=== PATIENT | male | born 1945 | race Caucasian/White ===

== ENCOUNTER 2023-01-27 08:23 | Outpatient (OUT) | payer MEDICARE, OTHER, SELFPAY ==
--- NOTE | 2023-01-27 08:45 | P.CN_ITS ---
Consult Note: HPI Data of Consult Patient: known to practice within the last 3 years Requesting Physician: Fariha Meehan NP Primary Care Provider: Non-Staff Physician, Consult Narrative Reason for consult: f/u Narrative: Raudel Jimenez a pleasant 77 year old male presents for evaluation and management of chronic left shoulder pain. Patient had a left shoulder injection july of 2021 that provided 80-100% pain relief until a few weeks ago. Today rating pain 7/10 dull in left shoulder. Would like to discuss repeating injection as tylenol b iofreeze voltaren and aspirin are not helping his pain. cc:: CC: Fariha Meehan NP Review of Systems 2 ROS Status of ROS 10 or more systems reviewed and unremarkable except as noted in history and below Musculoskeletal Reports: joint pain Exam Constitutional Documenting provider has reviewed patient's vital signs: yes Common normals: no apparent distress, oriented x3, healthy appearing, alert and well nourished General appearance: cooperative HENMT Common normals: normocephalic, hearing grossly normal bilaterally and moist oral mucous membranes Head and scalp: normocephalic Eye Common normals: PERRL Pupil: PERRL Neck & C-Spine Common normals: full ROM General: normal visual inspection Chest Common normals: inspection of chest normal Respiratory Common normals: normal respiratory effort, no retractions and no use of accessory muscles Extremity Common normals: normal to inspection and full ROM Left upper extremity: shoulder joint (pain with ROM, tender to touch, no edema redness) Neuro Common normals: oriented x3, CN's II-XII intact bilaterally, moves all extremities, no focal motor deficits, no sensory deficits noted and deep tendon reflexes 2+ bilaterally Sensorium/orientation: alert Motor exam: strength 5/5 throughout and no movement abnormalities noted Psych Common normals: mental status grossly normal, thought process normal, co operative, affect normal, speech normal and activity/motor behavior normal Speech: normal speech Thought process: normal thought process Results Additional Findings Additional findings: I have checked an OARRS report on this patient today and there are no aberranc ies noted in the prescribing history.?? A drug screen was completed and reviewed within the last year, and if there has not been a drug screen completed we ordered one today to monitor higher risk, st ate monitored pain medication use. As part of providing excellent, safe, comprehensive care, the following was completed at our patient's visit: 1. A medication reconciliation and review to ensure accurate knowledge of current/active medications, including asking our patients to inform us about any [id number] medications or herbal remedies/nutritional supplements/alternative remedies. 2. A review to specifically ensure our patients have had annual screening for: elevated body mass index (BMI), tobacco use, screening for depression, and screening for unhealthy alcohol use. When screening is concerning, patients are provided with education and the specific recommendation to discuss the concerning health issue and treatment options with their primary care provider. Assessment and Plan Assessment and Plan (1) Primary osteoarthritis, left shoulder: (2) Left shoulder pain: Plan continue conservative care f/u with Dr Fuentes for left shoulder injection
== END 2023-01-27 08:24 | disposition home or self-care (01) ==
LOC: PM 08:23
PROVIDERS: Visit Provider Nurse Practitioner
DX: M19.012 Primary osteoarthritis, left shoulder (principal); M25.512 Pain in left shoulder
CPT/HCPCS: G0463

== ENCOUNTER 2023-02-01 10:07 | Outpatient (OUT) | payer MEDICARE, OTHER, SELFPAY ==
--- NOTE | 2023-02-01 11:29 | PM.CN ---
Consult Note: HPI Data of Consult Patient: known to practice within the last 3 years Consult date: 02/01/23 Requesting Physician: Ponce Fuentes MD Primary Care Provider: Non-Staff Physician, Consult Narrative Reason for consult: left shoulder pain Narrative: 77yom with history of left shoulder pain. here today for left shoulder injection in office cc:: CC: Ponce Fuentes MD Review of Systems ROS Status of ROS 10 or more systems reviewed and unremarkable except as noted in history and below Meds Home Medications and Allergies Home Medications Medication Instructions Recorded Confirmed Type acetaminophen 650 mg 650 mg PO Q12H PRN fever or pain 01/27/23 01/27/23 History tablet,extended release (8 Hour Pain Reliever) apple cider vinegar 600 mg capsule 600 mg PO TID 01/27/23 01/27/23 History ascorbic acid (vitamin C) 500 mg 500 mg PO DAILY 01/27/23 01/27/23 History tablet (C-500) aspirin 81 mg tablet,delayed 81 mg PO DAILY 01/27/23 01/27/23 History release (Adult Aspirin Regimen) atenolol 50 mg tablet 50 mg PO DAILY 01/27/23 01/27/23 History atorvastatin 40 mg tablet 40 mg PO DAILY 01/27/23 01/27/23 History calcium carbonate 500 mg-vitamin 1 tab PO TID 01/27/23 01/27/23 History D3 10 mcg (400 unit) tablet (Calcium 500 + D) cholecalciferol (vitamin D3) 50 50 mcg PO DAILY 01/27/23 01/27/23 History mcg (2,000 unit) tablet (Vitamin D3) famotidine 20 mg tablet 20 mg PO BID 01/27/23 01/27/23 History fluticasone propionate 50 1 spray intranasal BID PRN allergy 01/27/23 01/27/23 History mcg/actuation nasal symptoms spray,suspension (24 Hour Allergy Relief) hydrochlorothiazide 25 mg tablet 25 mg PO DAILY 01/27/23 01/27/23 History insulin degludec 100 unit/mL (3 64 unit subcut DAILY 01/27/23 01/27/23 History mL) subcutaneous pen (Tresiba FlexTouch U-100 insulin) lisinopril 20 mg tablet 20 mg PO BID 01/27/23 01/27/23 History loratadine 10 mg capsule 10 mg PO DAILY 01/27/23 01/27/23 History melatonin 10 mg capsule 10 mg PO DAILY 01/27/23 01/27/23 History multivitamin (Daily Multi-Vitamin 1 tab PO DAILY 01/27/23 01/27/23 History tablet) omeprazole 20 mg capsule,delayed 20 mg PO DAILY 01/27/23 01/27/23 History release pyridoxine (vitamin B6) 100 mg 100 mg PO DAILY 01/27/23 01/27/23 History tablet sitagliptin phos 50 mg-metformin 1 tab PO BID 01/27/23 01/27/23 History ER 1,000 mg tablet,extend rel 24h mp (Janumet XR) zinc 25 mg tablet 25 mg PO DAILY 01/27/23 01/27/23 History Allergies Allergy/AdvReac Type Severity Reaction Status Date / Time No Known Drug Allergies Allergy Verified 01/27/23 10:47 Exam Narrative Exam Narrative: Psych-alert and oriented x 3. Attentive and appropriate, constitutionally normal, displays normal mood and affect per situation. There are no obvious deficits in memory, reasoning, or intellect.? Skin-no obvious rashes, bruising, erythema noted to the patient's area of pain.? Extremities- extremities are warm with minimal edema and palpable pulses. Shoulder - tenderness to palpation in left shoulder. Pain elicited with abduction, external rotation. Coordination remains intact.? Gait remains non-antalgic. Assessment and Plan Assessment and Plan (1) Left shoulder pain: (2) Primary osteoarthritis, left shoulder: Plan 77yom with left shoulder pain. Risks and benefits reviewed, would like to proceed with left shoulder injection. Procedure: Left shoulder injection Medication: Bupivacaine 0.25% 4cc, kenalog 40mg I explained the details of the procedure to the patient including the risks, benefits, and alternatives.? We had an informed discussion.? The patient verbalized understanding and signed the consent form.? All questions were answered appropriately.? A time-out was performed.? After obtaining a comfortable seated position, the skin overlying the left shoulder was prepped with alcohol 3 times.? The sulcus between the head of the humerus and the acromion was identified.? The needle was inserted in a sterile manner 2 cm inferior and medial to the posterolateral corner of the acromion and was directed anteriorly toward the coracoid process. The contents of the syringe were gently injected without any resistance into the joint space after negative aspiration for blood or other bodily fluids.? The needle was removed and pressure was applied at the injection site to decrease the incidence of ecchymosis and hematoma formation.? A sterile bandage was applied.
== END 2023-02-01 10:08 | disposition home or self-care (01) ==
LOC: PM 10:08
PROVIDERS: Visit Provider Anesthesiology
DX: M25.512 Pain in left shoulder (principal); M19.012 Primary osteoarthritis, left shoulder
CPT/HCPCS: 20610

== ENCOUNTER 2023-02-24 09:34 | Outpatient (OUT) | payer MEDICARE, OTHER, SELFPAY ==
--- NOTE | 2023-02-24 09:52 | P.CN_ITS ---
Consult Note: HPI Data of Consult Patient: known to practice within the last 3 years Requesting Physician: Fariha Meehan NP Primary Care Provider: Non-Staff Physician, Consult Narrative Reason for consult: f/u Narrative: Tony Starks a pleasant 77 year old male presents for evaluation and management of chronic left shoulder pain. Patient reports no relief from prior injection. Continues to have pain with activity in left shoulder joint . Rating pain today 4/10. Finds mild benefit to voltaren gel, moderate benefit from tramadol but wou ld like to avoid medications. cc:: CC: Fariha Meehan NP Review of Systems ROS Status of ROS 10 or more systems reviewed and unremarkable except as noted in history and below Musculoskeletal Reports: joint pain Meds Home Medications and Allergies Home Medications Medication Instructions Recorded Confirmed Type acetaminophen 650 mg 650 mg PO Q12H PRN fever or pain 01/27/23 01/27/23 History tablet,extended release (8 Hour Pain Reliever) apple cider vinegar 600 mg capsule 600 mg PO TID 01/27/23 01/27/23 History ascorbic acid (vitamin C) 500 mg 500 mg PO DAILY 01/27/23 01/27/23 History tablet (C-500) aspirin 81 mg tablet,delayed 81 mg PO DAILY 01/27/23 01/27/23 History release (Adult Aspirin Regimen) atenolol 50 mg tablet 50 mg PO DAILY 01/27/23 01/27/23 History atorvastatin 40 mg tablet 40 mg PO DAILY 01/27/23 01/27/23 History calcium carbonate 500 mg-vitamin 1 tab PO TID 01/27/23 01/27/23 History D3 10 mcg (400 unit) tablet (Calcium 500 + D) cholecalciferol (vitamin D3) 50 50 mcg PO DAILY 01/27/23 01/27/23 History mcg (2,000 unit) tablet (Vitamin D3) famotidine 20 mg tablet 20 mg PO BID 01/27/23 01/27/23 History fluticasone propionate 50 1 spray intranasal BID PRN allergy 01/27/23 01/27/23 History mcg/actuation nasal symptoms spray,suspension (24 Hour Allergy Relief) hydrochlorothiazide 25 mg tablet 25 mg PO DAILY 01/27/23 01/27/23 History insulin degludec 100 unit/mL (3 64 unit subcut DAILY 01/27/23 01/27/23 History mL) subcutaneous pen (Tresiba FlexTouch U-100 insulin) lisinopril 20 mg tablet 20 mg PO BID 01/27/23 01/27/23 History loratadine 10 mg capsule 10 mg PO DAILY 01/27/23 01/27/23 History melatonin 10 mg capsule 10 mg PO DAILY 01/27/23 01/27/23 History multivitamin (Daily Multi-Vitamin 1 tab PO DAILY 01/27/23 01/27/23 History tablet) omeprazole 20 mg capsule,delayed 20 mg PO DAILY 01/27/23 01/27/23 History release pyridoxine (vitamin B6) 100 mg 100 mg PO DAILY 01/27/23 01/27/23 History tablet sitagliptin phos 50 mg-metformin 1 tab PO BID 01/27/23 01/27/23 History ER 1,000 mg tablet,extend rel 24h mp (Janumet XR) zinc 25 mg tablet 25 mg PO DAILY 01/27/23 01/27/23 History tramadol 50 mg tablet 50 mg PO BID PRN pain #60 tabs 02/08/23 Rx Allergies Allergy/AdvReac Type Severity Reaction Status Date / Time No Known Drug Allergies Allergy Verified 01/27/23 10:47 Exam Constitutional Documenting provider has reviewed patient's vital signs: yes Common normals: no apparent distress, oriented x3, healthy appearing, alert and well nourished General appearance: cooperative HENMT Common normals: normocephalic, hearing grossly normal bilaterally and moist oral mucous membranes Head and scalp: normocephalic Eye Common normals: PERRL Pupil: PERRL Neck & C-Spine Common normals: full ROM General: normal visual inspection Other: no pain with rotation, flexion, extension. No pain with palpation. Denies numbness/tingling/weakness in bilateral arms or hands. No tenderness over left suprascapular or axillary nerve pattern. Chest Common normals: inspection of chest normal Respiratory Common normals: normal respiratory effort, no retractions and no use of accessory muscles Extremity Left upper extremity: shoulder joint (no edema. ROM mildly impaired. ) Other: pain over anterior shoulder joint with palpation, positive scratch test Neuro Common normals: oriented x3, CN's II-XII intact bilaterally, moves all extremities, no focal motor deficits, no sensory deficits noted and deep tendon reflexes 2+ bilaterally Sensorium/orientation: alert Motor exam: strength 5/5 throughout and no movement abnormalities noted Psych Common normals: mental status grossly normal, thought process normal, cooperative, affect normal, speech normal and activity/motor behavior normal Speech: normal speech Thought process: normal thought process Results Additional Findings Additional findings: I have checked an OARRS report on this patient today and there are no aberrancies noted in the prescribing history.?? A drug screen was completed and reviewed within the last year, and if there has not been a drug screen completed we ordered one today to monitor higher risk, state monitored pain medication use. As part of providing excellent, safe, comprehensive care, the following was completed at our patient's visit: 1. A medication reconciliation and review to ensure accurate knowledge of current/active medications, including asking our patients to inform us about any [id number] medications or herbal remedies/nutritional supplements/alternative remedies. 2. A review to specifically ensure our patients have had annual screening for: elevated body mass index (BMI), tobacco use, screening for depression, and screening for unhealthy alcohol use. When screening is concerning, patients are provided with education and the specific recommendation to discuss the concerning health issue and treatment options with their primary care provider. Assessment and Plan Assessment and Plan (1) Left shoulder pain: (2) Primary osteoarthritis, left shoulder: (3) Cervical spondylosis: (4) Tendinopathy of left shoulder: Plan update xray of left shoulder xray of cervical spine continue current medications pt would like to f/u with his previous orthopedic doctor who did his right shoulder f/u 4 weeks
== END 2023-02-24 09:35 | disposition home or self-care (01) ==
LOC: PM 09:34
PROVIDERS: Visit Provider Nurse Practitioner
DX: M25.512 Pain in left shoulder (principal); M19.012 Primary osteoarthritis, left shoulder; M47.812 Spondylosis without myelopathy or radiculopathy, cervical region; M67.814 Other specified disorders of tendon, left shoulder
CPT/HCPCS: G0463

== ENCOUNTER 2023-03-31 11:08 | Outpatient (OUT) | payer MEDICARE, OTHER, SELFPAY ==
--- NOTE | 2023-03-31 11:33 | PM.CN ---
Consult Note: HPI Data of Consult Patient: known to practice within the last 3 years Requesting Physician: Fariha Meehan NP Primary Care Provider: Non-Staff Physician, Consult Narrative Reason for consult: f/u Narrative: Tony Starks a pleasant 77 year old male presents for evaluation and management of chronic left shoulder pain. Patient reports no relief from prior injection. Continues to have pain with activity in left shoulder joint . Rating pain today 4/10. Finds mild benefit to voltaren gel, moderate benefit from tramadol but would like to avoid medications. cc:: CC: Fariha Meehan NP Review of Systems ROS Status of ROS 10 or more systems reviewed and unremarkable except as noted in history and below Musculoskeletal Reports: joint pain Meds Home Medications and Allergies Home Medications Medication Instructions Recorded Confirmed Type acetaminophen 650 mg 650 mg PO Q12H PRN fever or pain 01/27/23 01/27/23 History tablet,extended release (8 Hour Pain Reliever) apple cider vinegar 600 mg capsule 600 mg PO TID 01/27/23 01/27/23 History ascorbic acid (vitamin C) 500 mg 500 mg PO DAILY 01/27/23 01/27/23 History tablet (C-500) aspirin 81 mg tablet,delayed 81 mg PO DAILY 01/27/23 01/27/23 History release (Adult Aspirin Regimen) atenolol 50 mg tablet 50 mg PO DAILY 01/27/23 01/27/23 History atorvastatin 40 mg tablet 40 mg PO DAILY 01/27/23 01/27/23 History calcium carbonate 500 mg-vitamin 1 tab PO TID 01/27/23 01/27/23 History D3 10 mcg (400 unit) tablet (Calcium 500 + D) cholecalciferol (vitamin D3) 50 50 mcg PO DAILY 01/27/23 01/27/23 History mcg (2,000 unit) tablet (Vitamin D3) famotidine 20 mg tablet 20 mg PO BID 01/27/23 01/27/23 History fluticasone propionate 50 1 spray intranasal BID PRN allergy 01/27/23 01/27/23 History mcg/actuation nasal symptoms spray,suspension (24 Hour Allergy Relief) hydrochlorothiazide 25 mg tablet 25 mg PO DAILY 01/27/23 01/27/23 History insulin degludec 100 unit/mL (3 64 unit subcut DAILY 01/27/23 01/27/23 History mL) subcutaneous pen (Tresiba FlexTouch U-100 insulin) lisinopril 20 mg tablet 20 mg PO BID 01/27/23 01/27/23 History loratadine 10 mg capsule 10 mg PO DAILY 01/27/23 01/27/23 History melatonin 10 mg capsule 10 mg PO DAILY 01/27/23 01/27/23 History multivitamin (Daily Multi-Vitamin 1 tab PO DAILY 01/27/23 01/27/23 History tablet) omeprazole 20 mg capsule,delayed 20 mg PO DAILY 01/27/23 01/27/23 History release pyridoxine (vitamin B6) 100 mg 100 mg PO DAILY 01/27/23 01/27/23 History tablet sitagliptin phos 50 mg-metformin 1 tab PO BID 01/27/23 01/27/23 History ER 1,000 mg tablet,extend rel 24h mp (Janumet XR) zinc 25 mg tablet 25 mg PO DAILY 01/27/23 01/27/23 History tramadol 50 mg tablet 50 mg PO BID PRN pain #60 tabs 02/08/23 Rx tramadol 50 mg tablet 50 mg PO BID PRN pain #60 tabs 03/09/23 Rx Allergies Allergy/AdvReac Type Severity Reaction Status Date / Time No Known Drug Allergies Allergy Verified 01/27/23 10:47 Exam Constitutional Documenting provider has reviewed patient's vital signs: yes Common normals: no apparent distress, oriented x3, healthy appearing, alert and well nourished General appearance: cooperative [facility] Common normals: normocephalic, hearing grossly normal bilaterally and moist oral mucous membranes Head and scalp: normocephalic Eye Common normals: PERRL Pupil: PERRL Neck & C-Spine Common normals: full ROM General: normal visual inspection Other: no pain with rotation, flexion, extension. No pain with palpation. Denies numbness/tingling/weakness in bilateral arms or hands. No tenderness over left suprascapular or axillary nerve pattern. Chest Common normals: inspection of chest normal Respiratory Common normals: normal respiratory effort, no retractions and no use of accessory muscles Extremity Left upper extremity: shoulder joint (no edema. ROM mildly impaired. ) Other: pain over anterior shoulder joint with palpation ROM normal without pain Neuro Common normals: oriented x3, CN's II-XII intact bilaterally, moves all extremities, no focal motor deficits, no sensory deficits noted and deep tendon reflexes 2+ bilaterally Sensorium/orientation: alert Motor exam: strength 5/5 throughout and no movement abnormalities noted Psych Common normals: mental status grossly normal, thought process normal, cooperative, affect normal, speech normal and activity/motor behavior normal Speech: normal speech Thought process: normal thought process Assessment and Plan Assessment and Plan (1) Tendinopathy of left shoulder: (2) Cervical spondylosis: (3) Left shoulder pain: (4) Primary osteoarthritis, left shoulder: Plan cervical xray reviewed, recent left shoulder xray reviewed. patient was evaluated by orthopedics who deemed him non-surgical per pt at the end of today's visit patient said he is not coming back, he is going to follow up with his orthopedic doctor patient can discuss medication options with PCP
== END 2023-03-31 11:09 | disposition home or self-care (01) ==
LOC: PM 11:08
PROVIDERS: Visit Provider Nurse Practitioner
DX: M75.82 Other shoulder lesions, left shoulder (principal); M47.812 Spondylosis without myelopathy or radiculopathy, cervical region; M25.512 Pain in left shoulder; M19.012 Primary osteoarthritis, left shoulder
CPT/HCPCS: G0463

== ENCOUNTER 2023-05-25 14:25 | Outpatient (OUT) | payer MEDICARE, OTHER, SELFPAY ==
--- NOTE | 2023-05-25 | CONS_ITS ---
CONSULTATION DATE: 05/25/2023 TO: JESSIKA Solano CHIEF COMPLAINT: Includes right hip pain. HISTORY: He reports the pain presently is rated 0-4/10 pain, sharp in character with a deep aching component, increased with activities such as standing, walking and performing transitioning maneuvers. He also reports laying supine is quite painful. Denies any change in bowel and bladder habits or new sensorimotor changes in the lower extremities. MEDICATION: His current medication includes tramadol 50 mg b.i.d. p.r.n., which he uses rarely. He reports the medication does improve his quality of life, level of functioning and sleep pattern, when he does use it, and denied any side effects. His MASSIEL on today?s visit is 4%. EXAM: His examination on today?s visit reveals the patient has no clinical radiculopathy or myelopathy involving his lower extremities. Patient had tenderness along the right SI joint. He had a positive right sided pelvic rock test and Gaenslen?s maneuver and pelvic compression test was positive but mild. He also had positive right sided FABERs sign. IMPRESSION: Our impression is patient appears to have chronic pain secondary to right hip osteoarthrosis, right SI joint dysfunction, both of which are mild on today?s visit, at least on clinical examination. RECOMMENDATIONS: I recommend no further intervention for his pain symptoms. He should initiate aquatic therapy. Since the patient is still prescribed tramadol but uses it infrequently, we will see the patient in the office on an as needed basis, since his later prescription was written four weeks ago. He reports he has not required any tramadol in the last four weeks. As part of providing excellent, safe, comprehensive care, the following was completed at our patient's visit: 1. A medication reconciliation and review to ensure accurate knowledge of current/active medications, including asking our patients to inform us about any [id number] medications or herbal remedies/nutritional supplements/alternative remedies. 2. A review to specifically ensure our patients have had annual screening for: elevated body mass index (BMI, see intake chart for exact total), tobacco use, screening for depression, and screening for unhealthy alcohol use. When screening is concerning, patients are provided with education and the specific recommendation to discuss the concerning health issue and treatment options with their primary care provider. LOC
== END 2023-05-25 14:26 | disposition home or self-care (01) ==
LOC: PM 14:25
PROVIDERS: Visit Provider Anesthesiology Pain Medicine
DX: M25.551 Pain in right hip (principal); M16.11 Unilateral primary osteoarthritis, right hip; M53.3 Sacrococcygeal disorders, not elsewhere classified
CPT/HCPCS: G0463

== ENCOUNTER 2023-09-07 12:10 | Outpatient (OUT) | payer MEDICARE, OTHER, SELFPAY ==
--- NOTE | 2023-09-07 | CONS_ITS ---
PROCEDURE DATE: 09/07/2023 PROCEDURE: Left suprascapular nerve injection. 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 POSTOPERATIVE DIAGNOSIS: Pain secondary to rotator cuff strain, rotator cuff tear on the left side, osteoarthrosis of the glenohumeral and also the AC joint. SOLUTION USED FOR INJECTION: 2 mL of 2% lidocaine, 2 mL of 0.25% Marcaine and 10 mg of Kenalog, total of 5 mL, and 1 mL used for the injection. IMMEDIATE COMPLICATIONS: None. PROCEDURE: After informed consent was obtained from the patient, placed in the sitting position. Skin overlying the area was prepped with alcohol. A 25 gauge, 1 ?? needle was inserted over the area of the left suprascapular nerve. Needle tip advanced until there he developed paresthesia, at which point we injected 1 mL of solution. No indication of intravascular or intraneural needle tip placement. No evidence of post procedure pneumothorax and patient reports a dramatic reduction of pain symptoms. Patient?s MASSIEL pre-procedure was 8%. MTDD
--- OUTSIDE RECORDS SUMMARY | 2023-09-07 12:23 | XMS_ITS | CCD ---
Author Organization [facility] Care Team Providers Care Mine Expert Name Role Phone Daniel Pop Primary Care Provider KESHAWN, DR OTF Villatoro Consulting Unavailable JOO, DR ABNER Saini Attending Unavailable ARBEN, DR NUNEZ Primary Care Unavailable JOO, DR ABNER Saini Admitting Unavailable JESSE WOOD Consulting Unavailable MISC, DR VEGA Primary Care Unavailable JOO, DR ABNER Saini Attending Unavailable JESSE WOOD Consulting Unavailable JOO, DR ABNER Saini Admitting Unavailable JANESSAC, DR VEGA Primary Care Unavailable JOO, DR ABNER Saini Attending Unavailable JOO, DR ABNER Saini Consulting Unavailable WASHINGTON, DR ABNER Saini Admitting Unavailable DINORA LAROSE Consulting Unavailable W[place], DR ABNER Saini Attending Unavailable JESSE WOOD Consulting Unavailable MISC, DR VEGA Primary Care Unavailable JOO, DR ABNER Saini Admitting Unavailable JOO, DR ABNER Saini Attending Unavailable JOO, DR ABNER Saini Consulting Unavailable MISC, DR VEGA Primary Care Unavailable JOO, DR ABNER Saini Admitting Unavailable Ponce Fuentes MD Attending Unavailable DANIEL POP Primary Care Unavailable PREETHI SHAVER Referring Unavailable DANIEL POP Primary Care Unavailable SHAYLEE PLATA Referring Unavailable DANIEL POP Primary Care Unavailable PREETHI SHAVER Referring Unavailable DANIEL POP Primary Care Unavailable PREETHI SHAVER Referring Unavailable PRETTY DAWSON Attending Unavailable PALMA SALGADO Attending Unavailable POCPRETTY WORKMAN Attending Unavailable PRETTY DAWSON Referring Unavailable SHAYLEE PLATA Attending Unavailable PALMA SALGADO Attending Unavailable Medications Current Medications Medication Drug Class(es) Dates Sig (Normalized) Sig (Original) acetaminophen 325 mg / oxyCODONE hydrochloride 5 mg oral tablet (2 sources) Opioid Agonist Start: 05-09-19 21 End: 05-12-19 21 take 1-2 tablets by mouth every six hours as needed for pain oxyCODONE-acetaminophe n (PERCOCET) 5-325 MG per tablet Indications: Rotator cuff syndrome of right shoulder Take 1-2 tablets by mouth every 6 hours as needed for Pain for up to 3 days. 40 tablet 0 05/09/2020 05/12/2020 Active Apple Cider Vinegar (1 source) APPLE CIDER VINE GAR PO Take by mouth 0 Active aspirin 81 mg oral tablet (20 sources) Platelet Aggregation Inhibitor, Nonsteroidal Anti-inflammatory Drug take 1 tablet by mouth once daily aspirin 81 MG tablet Take 81 mg by mouth daily. 0 Active atenolol 50 mg oral tablet (20 sources) beta-Adrenergic Kostas take 1 tablet by mouth once daily atenolol (TENORMIN) 50 MG tablet Take 50 mg by mouth daily. 0 Active atorvastatin 40 mg oral tablet (20 sources) HMG-CoA Reductase Inhibitor take 1 tablet by mouth once daily atorvastatin (LIPITOR) 40 MG tablet Take 40 mg by mouth daily. 0 Active calcium chloride 0.0014 meq/ml / potassium chloride 0.004 meq/ml / sodium chloride 0.103 meq/ml / sodium lactate 0.028 meq/ml injectable solution (1 source) Start: 05-09-19 21 lactated ringers infusion CALCIUM-VITAMIN D PO (20 sources) CALCIUM-VITAMIN D PO Take by mouth 0 Active docusate sodium 100 mg oral capsule (18 sources) Start: 05-09-19 21 take 1 capsule by mouth twice daily docusate sodium (COLACE) 100 MG capsule Take 1 capsule by mouth 2 times daily 40 capsule 0 05/09/2020 Active famotidine 20 mg oral tablet (1 source) Histamine-2 Receptor Antagonist Start: 02-03-20 22 famotidine (PEPCID) 20 MG tablet fluticasone (1 source) Corticosteroid FLUTICASONE PROPIONATE, NASAL, NA by Nasal route 0 Active hydroCHLOROthiazide 25 mg oral tablet (20 sources) Thiazide Diuretic take 1 tablet by mouth once daily hydrochlorothiazide (HYDRODIURIL) 25 MG tablet Take 25 mg by mouth daily 0 Active insulin degludec (18 sources) Insulin Analog Insulin Degludec (TRESIBA SC) Inject 60 Units into the skin nightly 0 Active lisinopril 10 mg oral tablet (20 sources) Angiotensin Converting Enzyme Inhibitor take 2 tablets by mouth twice daily lisinopril (PRINIVIL;ZESTRIL) 10 MG tablet Take 20 mg by mouth 2 times daily 0 Active loratadine 10 mg oral tablet (1 source) LORATADINE PO Ta ke 10 mg by mouth 0 Active magnesium sulfate 0.0277 meq/ml / potassium sulfate 0.0374 meq/ml / sodium sulfate 0.257 meq/ml oral solution (1 source) Start: 04-20-19 23 [id number] sulfate (SUPREP BOWEL PREP KIT) 17.5-3.13-1.6 GM/177ML SOLN solution Use as directed. 1 each 0 04/20/2022 Active Melatonin (1 source) MELATONIN PO Eric e by mouth 0 Active 24 hr metFORMIN hydrochloride 1000 mg / SITagliptin 50 mg extended release oral tablet (1 source) Biguanide, Dipeptidyl Peptidase 4 Inhibitor Start: 03-31-20 JANUMET XR 50-1000 MG TB24 per extended release tablet multivitamin (THERAGRAN) per tablet (20 sources) take 1 tablet by mouth once daily multivitamin (THERAGRAN) per tablet Take 1 tablet by mouth daily. 0 Active Nutritional Supplements (DHEA PO) (20 sources) Nutritional Supplements (DHEA PO) Take by mouth 0 Active omeprazole 20 mg delayed release oral capsule (20 sources) Proton Pump Inhibitor take 1 capsule by mouth once daily omeprazole (PRILOSEC) 20 MG capsule Take 20 mg by mouth daily. 0 Active 2 ml ondansetron 2 mg/ml injection (1 source) Serotonin-3 Receptor Antagonist Start: 05-09-19 21 4 mg, Intravenous, EVERY 6 HOURS PRN, Nausea, Vomiting, Starting Reny 05/09/20 at 1438, Post-op oxyCODONE (1 source) Opioid Agonist Start: 05-09-19 21 oxyCODONE (ROXICODONE) immediate release tablet 5 mg raNITIdine 150 mg oral capsule (20 sources) Histamine-2 Receptor Antagonist take 2 capsules by mouth once daily as needed ranitidine (ZANTAC) 150 MG capsule Take 300 mg by mouth daily as needed 0 Active SITagliptin 100 mg oral tablet (20 sources) Dipeptidyl Peptidase 4 Inhibitor take 1 tablet by mouth once daily in the evening sitaGLIPtin (JANUVIA) 100 MG tablet Take 100 mg by mouth every evening. 0 Active 3 ml sodium chloride 9 mg/ml injection (4 sources) Start: 05-09-19 21 10 mL, Intravenous, EVERY 12 HOURS SCHEDULED (2 times per day), First dose on Reny 05/09/20 at 2100, Post-op Start: 05-09-2020 take 10 mL intravenous route o nce 10 mL, Intravenous, PRN, Line Care, Starting Reny 05/09/20 at 1438 After every IV line use Post-op Start: 05-09-2020 sodium chlorid e flush 0.9 % injection 10 mL vitamin b6 50 mg oral tablet (1 source) take 2 tablets by mo uth once daily vitamin B-6 (PYRIDOXINE) 50 MG tablet Take 100 mg by mouth daily 0 Active Zinc (1 source) ZINC PO Take by mouth 0 Active Completed/Discontinued Medications Medication Drug Class(es) Dates Sig (Normalized) Sig (Original) ceFAZolin 2000 mg injection (1 source) Cephalosporin Antibacterial Start: 05-09-2020 End: 05-09-2020 ceFAZolin (ANCEF) 2000 mg in dextrose 3 % 50 mL IVPB (duplex) insulin detemir 100 unt/ml injectable solution (18 sources) Insulin Analog End: 05-09-2020 insulin detemir (LEVEMIR) 100 UNIT/ML injection Inject 52 Units into the skin nightly 0 05/09/2020 Discontinued (LIST CLEANUP) metFORMIN hydrochloride 500 mg oral tablet (18 sources) Biguanide End: 05-09-2020 take 2 tablets by mouth twice daily at mealtime metformin (GLUCOPHAGE) 500 MG tablet Take 1,000 mg by mouth 2 times daily (with meals). 0 05/09/2020 Discontinued (Therapy completed) Problems Active Problems Problem Classification Problem Date Documented Date Episodic/Chronic Diabetes mellitus without complication (20 sources) Type 2 diabetes mellitus; Translations: [Type 2 diabetes mellitus with unspecified complications] Onset: 11-09-2016 11-09-2016 Chronic Disorders of lipid metabolism (20 sources) Hypercholesterolemia; Translations: [Pure hypercholesterolemia, unspecified] Onset: 11-09-2016 11-09-2016 Chronic Esophageal disorders (20 sources) Gastroesophageal reflux disease without esophagitis; Translations: [Gastro-esophageal reflux disease without esophagitis] Onset: 11-09-2016 11-09-2016 Chronic Essential hypertension (20 sources) Hypertensive disorder; Translations: [Essential (primary) hypertension] Onset: 11-09-2016 11-09-2016 Chronic Osteoarthritis (1 source) Primary osteoarthritis, left shoulder; Translations: [PRIMARY OSTEOARTHRITIS LT SHOULDER] Onset: 07-28-2021 Chronic Other aftercare (1 source) 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; Translations: [SHELTER CURRENT USE OF INSULIN] Onset: 04-13-2022 Episodic Other circulatory disease (1 source) Other specified symptoms and signs involving the circulatory and respiratory systems; Translations: [Other specified symptoms and signs involving the circulatory and respiratory systems] Onset: 06-15-2023 Episodic Other connective tissue disease (1 source) Cramp and spasm; Translations: [Cramp and spasm] Onset: 06-15-2023 Episodic Other connective tissue disease (1 source) Impingement syndrome of right shoulder region; Translations: [Impingement syndrome of right shoulder] Other connective tissue disease (17 sources) Right rotator cuff syndrome; Translations: [Rotator cuff syndrome of right shoulder] Onset: 05-09-2020 05-09-2020 Other nervous system disorders (1 source) Other chronic pain; Translations: [OTHER CHRONIC PAIN] Onset: 04-13-2022 Chronic Other non-traumatic joint disorders (4 sources) Pain in left hip; Translations: [PAIN IN LEFT HIP] Onset: 03-19-2022 Episodic Other non-traumatic joint disorders (1 source) Arthritis of joint of right shoulder region; Translations: [Arthritis of right shoulder region] Residual codes; unclassified (20 sources) Sleep apnea; Translations: [Sleep apnea, unspecified] Onset: 11-09-2016 11-09-2016 Chronic Spondylosis; intervertebral disc disorders; other back problems (5 sources) Sacroiliitis, not elsewhere classified; Translations: [SACROILIITIS NEC] Onset: 04-07-2022 Chronic Spondylosis; intervertebral disc disorders; other back problems (5 sources) Muscle spasm of back; Translations: [Sacrococcygeal disorders, not elsewhere classified] Onset: 04-13-2022 Episodic Unclassified (1 source) Patient encounter status; Translations: [Pre-op chest exam] Unclassified (1 source) LOW BACK PAIN, UNSPECIFIED; Translations: [LOW BACK PAIN, UNSPECIFIED] Onset: 04-13-2022 Past or Other Problems Problem Classification Problem Date Documented Date Episodic/Chronic Biliary tract disease (20 sources) Biliary colic; Translations: [Calculus of bile duct without cholangitis or cholecystitis without obstruction] Onset: 11-17-2013 11-17-2013 Episodic Other connective tissue disease (2 sources) Right rotator cuff syndrome; Translations: [Unspecified rotator cuff tear or rupture of right shoulder, not specified as traumatic] Onset: 05-09-2020 05-09-2020 Episodic Other connective tissue disease (1 source) Other shoulder lesions, left shoulder; Translations: [OTHER SHOULDER LESIONS LT SHOULDER] Onset: 07-18-2021 Episodic Other non-traumatic joint disorders (7 sources) Pain in left shoulder; Translations: [PAIN IN LEFT SHOULDER] Onset: 07-22-2021 Episodic Results Test Name Value Interpretation Reference Range Facility XR CERVICAL SPINE (4-5 VIEWS )on 03-01-2023 XR CERVICAL SPINE (4-5 VIEWS) EXAM: XR CERVICAL SPINE (4-5 VIEWS) HISTORY: Left shoulder pain, unspecified chronicity COMPARISON: None. IMPRESSION: FINDINGS/IMPRESSION: 1. Early anterior osteophyte formation at C5-C6, normal for age. 2. Intervertebral foramina patent. 3. Odontoid normal. 4. Minimal diffuse facet degenerative changes for age. Interpreted by: Cuba Noonan Jr., MD Signed by: Cuba Noonan Jr., MD 03/01/23 Final result Normal [facility] XR SHOULDER LEFT (MIN 2 VIEW S)on 03-01-2023 XR SHOULDER LEFT (MIN 2 VIEWS) EXAM: XR SHOULDER LEFT (MIN 2 VIEWS) HISTORY: Left shoulder pain, unspecified chronicity COMPARISON: [place], 07/16/2021. IMPRESSION: FINDINGS/IMPRESSION: 1. Skin marker placed lateral to the acromion without underlying abnormality. 2. Moderate degenerative change acromioclavicular joint, similar to previous. 3. Mild narrowing glenohumeral joint. 4. Negative for calcific bursitis or fracture. Interpreted by: Cuba Noonan Jr., MD Signed by: Cuba Noonan Jr., MD 03/01/23 Final result Normal [facility] EKG 12 Leadon 04-20-2022 Atrial Rate 60 BPM [employer] Phone: P [place] [address] [facility] [employer] [facility] Phone: P-R Interval 198 ms B[employer] Work Phone: Q-T Interval 396 ms [employer] Phone: QRS Duration 96 ms [facility]ENRI [employer] Phone: QTc Calculation (Bazett) [address] [facility] [employer] Phone: R [place] [address] [facility] [employer] Phone: T [place] 17 degrees [facility]ENRI [employer] Phone: Ventricular Rate [address] [facility] [employer] Work Phone: Normal sinus rhythm Minimal voltage criteria for LVH, may be normal variant ( Sokolow-Ashby ) Borderline [facility] Brian Mckeon MD - 04/20/2022 Normal sinus rhythm Minimal voltage criteria for LVH, may be normal variant ( Sokolow-Ashby ) Borderline ECG [facility] [employer] Phone: [facility] [employer] Phone: POINT OF CARE GLUCOSEon -0 Glucose [Mass/Vol] 177 mg/dL Critically high 74-106 [facility] Comment on above: Performed By: #### P OCGLUC #### [facility] [address] [address] [address] Spencer Zabala COVID-19on 05-09-2020 SARS-CoV-2, Rapid Not Detected Not Detected [place], [place] Comment on above: Rapid NAAT: The specimen is NEGATIVE for SARS-CoV-2, the novel coronavirus associated with COVID-19. The ID NOW COVID-19 assay is designed to detect the virus that causes COVID-19 in patients with signs and symptoms of infection who are suspected of COVID-19. An individual without symptoms of COVID-19 and who is not shedding SARS-CoV-2 virus would expect to have a negative (not detected) result in this assay. Negative results should be treated as presumptive and, if inconsistent with clinical signs and symptoms or necessary for patient management, should be tested with an alternative molecular assay. Negative results do not preclude SARS-CoV-2 infection and should not be used as the sole basis for patient management decisions. Fact sheet for Healthcare Providers: https://www.fda.gov/media/826730/download Fact sheet for Patients: https://www.fda.gov/media/724907/download Methodology: Isothermal Nucleic Acid Amplification Source .THROAT [place], [place] Glucose, Whole Bloodon 05-09 Glucose [Mass/Vol] 83 mg/dL 65 - 99 mg/dL [place] Glucose [Mass/Vol] 99 mg/dL 65 - 99 mg/dL [place] Otheron 05-09-2020 SARS-CoV-2 [place] Basic Metabolic Panelon 04-06 Anion gap [Moles/Vol] 9 mmol/L 9 - 17 mmol/L [place] Bun/Cre Ratio 20 [place] Calcium [Mass/Vol] 10.6 mg/dL High 8.6 - 10. 4 mg/dL [place] Chloride [Moles/Vol] 99 mmol/L 98 - 107 mmol/L [place] CO2 [Moles/Vol] 26 mmol/L 20 - 31 mmol/L [place] Creatinine [Mass/Vol] 1.26 mg/dL High 0.7 - 1.2 mg/dL [place] GFR >60 >60 mL/min [place] GFR Non- 56 mL/min Low >60 [place] GFR/1.73 sq M predicted among non-blacks MDRD (S/P/Bld) [Vol rate/Area] [place] Comment on above: Average GFR for 70 o r more years old: 75 mL/min/1.73sq m Chronic Kidney Disease: <60 mL/min/1.73sq m Kidney failure: <15 mL/min/1.73sq m eGFR calculated using average adult body mass. Additional eGFR calculator available at: http://www.Giphy/multiple_crcl_2012.htm GFR/1.73 sq M predicted among non-blacks MDRD (S/P/Bld) [Vol rate/Area] NOT REPORTED [place] Glucose [Mass/Vol] 155 mg/dL High 70 - 99 mg/dL [place] Interpretation and review of laboratory results Abnormal [place] Potassium [Moles/Vol] 4.5 mmol/L 3.7 - 5.3 mmol/L [place] Sodium [Moles/Vol] 134 mmol/L Low 135 - 144 mmol/L [place] Urea nitrogen [Mass/Vol] 25 mg/dL High 8 - 23 mg/dL [place] CBC Auto Differentialon 04-06 Basophils (Bld) [#/Vol] 0.00 10*3/uL [place] Basophils/100 WBC (Bld) 0 % 0 - 2 % [place] Differential Type YES [place] Eosinophils (Bld) [#/Vol] 0.20 10*3/uL [place] Eosinophils/100 WBC (Bld) 3 % 0 - 5 % [place] Erythrocyte distribution width (RBC) [Ratio] 14.2 % 12.1 - 15.2 % [place] Hematocrit (Bld) [Volume fraction] 43.0 % 41 - 53 % [place] Hemoglobin (Bld) [Mass/Vol] 14.6 g/dL 13.5 - 17.5 g/dL [place] Lymphocytes (Bld) [#/Vol] 1.70 10*3/uL [place] Lymphocytes/100 WBC (Bld) 23 % 13 - 44 % [place] MCH (RBC) [Entitic mass] 30.9 pg 26 - 34 pg [place] MCHC (RBC) [Mass/Vol] 33.9 g/dL 31 - 37 g/dL [place] MCV (RBC) [Entitic vol] 91.1 fL 80 - 100 fL [place] Monocytes (Bld) [#/Vol] 0.70 10*3/uL [place] Monocytes/100 WBC (Bld) 9 % 5 - 9 % [place] Platelet mean volume (Bld) [Entitic vol] NOT REPORTED 6 - 12 fL [place] Platelets (Bld) [#/Vol] 237 10*3/uL [place] Platelets (Bld) [#/Vol] NOT REPORTED [place] RBC (Bld) [#/Vol] 4.73 10*6/uL 4.5 - 5.9 m/uL M [place] RBC morphology finding Nom (Bld) NOT REPORTED [place] Segmented neutrophils/100 WBC (Bld) 65 % 39 - 75 % [place] Segs Absolute 4.90 [place] WBC (Bld) [#/Vol] NOT REPORTED per 100 WBC [place] WBC (Bld) [#/Vol] 7.6 10*3/uL [place] WBC Morphology NOT REPORTED [place] Otheron 05-02-2020 Immature granulocytes (Bld) [#/Vol] NOT REPORTED [place] XR CHEST (2 VW)on 05-02-2020 Likely mild symmetri c emphysematous overinflation. No acute changes. [place] EXAM: XR CHEST (2 VW ) HISTORY: Reason for exam:->Pre-op for rt shoulder scope. COMPARISON: None. TECHNIQUE: 2 views chest. FINDINGS: Likely mild emphysematous overinflation. Heart size normal. Lungs clear. [place], M[facility] Incoming Radiant Results From [employer] - 05/02/2020 1:56 PM EST EXAM: XR CHEST (2 VW) HISTORY: Reason for exam:->Pre-op for rt shoulder scope. COMPARISON: None. TECHNIQUE: 2 views chest. FINDINGS: Likely mild emphysematous overinflation. Heart size normal. Lungs clear. IMPRESSION: Likely mild symmetric emphysematous overinflation. No acute changes. [place] MRI SHOULDER RIGHT WO CONTRA STon 04-24-2020 1. A 1.3 cm x 1 cm high-grade partial-thickness or possibly full-thickness rotator cuff tear of the distalmost infraspinatus tendon, with surrounding severe infraspinatus tendinopathy and supraspinatus tendinopathy. No tendon retraction or muscular atrophy. 2. Probable small 0.5 cm x 0.5 cm low-grade partial-thickness intrasubstance tear or area of fraying in the superior distal fibers of the subscapularis tendon, with surrounding moderate tendinopathy. 3. Medial subluxation of the medial fibers of the long head of the biceps tendon from the bicipital groove to anterior to the lesser tuberosity of the humerus, with associated proximal biceps tendinopathy. 4. Degeneration or degenerative tear is suspected throughout the superior labrum, and possibly the inferior labrum. 5. Mild osteoarthrosis in the inferior aspect of the glenohumeral joint. 6. Severe AC joint osteoarthrosis, with large marginal osteophytes which narrow the supraspinatus outlet. Mild subacromial/subdeltoid bursitis. 7. 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 I recommend continued clinical follow up to assess for stability. [place] CLINICAL HISTORY: Impingement syndrome of right shoulder (M75.41). Right shoulder pain. MRI RIGHT SHOULDER WITHOUT CONTRAST: TECHNIQUE: Sagittal PD, STIR, T2, coronal T1, PD, T2 fat-saturated, and axial images were obtained through the right shoulder. COMPARISON: Radiograph of 02/23/2020. FINDINGS: A large 7.2 cm transverse by 4 cm AP by 3.7 cm craniocaudal fatty mass is noted in the teres minor muscle, with a couple of very thin internal septations, consistent with a benign lipoma. No thickened internal septation, mural nodularity, or other concerning feature is seen in association with this fatty mass. Severe AC joint osteoarthrosis is present, with subchondral cysts, and large marginal osteophytes which narrow the supraspinatus outlet. There is type II acromion. Mild subacromial/subdeltoid bursitis. There is a 1.3 cm AP by 1 cm transverse high-grade partial-thickness or possibly full-thickness rotator cuff tear of the distalmost infraspinatus tendon, with surrounding severe infraspinatus tendinopathy and supraspinatus tendinopathy. No tendon retraction or muscular atrophy. There is a probable small 0.5 cm x 0.5 cm low-grade partial-thickness intrasubstance tear or area of fraying in the superior distal fibers of the subscapularis tendon, with surrounding moderate tendinopathy. The teres minor tendon is intact. There is medial subluxation of the medial fibers of the long head of the biceps tendon from the bicipital groove to anterior to the lesser tuberosity of the humerus, with associated proximal biceps tendinopathy. Degeneration or degenerative tear is suspected throughout the superior labrum, and possibly the inferior labrum. Mild osteoarthrosis is noted in the inferior aspect of the glenohumeral joint, with small inferior marginal osteophytes. [facility] [place] [place], [facility] Incoming Radiant Results From [employer] - 04/24/2020 12:20 PM EST CLINICAL HISTORY: Impingement syndrome of right shoulder (M75.41). Right shoulder pain. MRI RIGHT SHOULDER WITHOUT CONTRAST: TECHNIQUE: Sagittal PD, STIR, T2, coronal T1, PD, T2 fat-saturated, and axial images were obtained through the right shoulder. COMPARISON: Radiograph of 02/23/2020. FINDINGS: A large 7.2 cm transverse by 4 cm AP by 3.7 cm craniocaudal fatty mass is noted in the teres minor muscle, with a couple of very thin internal septations, consistent with a benign lipoma. No thickened internal septation, mural nodularity, or other concerning feature is seen in association with this fatty mass. Severe AC joint osteoarthrosis is present, with subchondral cysts, and large marginal osteophytes which narrow the supraspinatus outlet. There is type II acromion. Mild subacromial/subdeltoid bursitis. There is a 1.3 cm AP by 1 cm transverse high-grade partial-thickness or possibly full-thickness rotator cuff tear of the distalmost infraspinatus tendon, with surrounding severe infraspinatus tendinopathy and supraspinatus tendinopathy. No tendon retraction or muscular atrophy. There is a probable small 0.5 cm x 0.5 cm low-grade partial-thickness intrasubstance tear or area of fraying in the superior distal fibers of the subscapularis tendon, with surrounding moderate tendinopathy. The teres minor tendon is intact. There is medial subluxation of the medial fibers of the long head of the biceps tendon from the bicipital groove to anterior to the lesser tuberosity of the humerus, with associated proximal biceps tendinopathy. Degeneration or degenerative tear is suspected throughout the superior labrum, and possibly the inferior labrum. Mild osteoarthrosis is noted in the inferior aspect of the glenohumeral joint, with small inferior marginal osteophytes. IMPRESSION: 1. A 1.3 cm x 1 cm high-grade partial-thickness or possibly full-thickness rotator cuff tear of the distalmost infraspinatus tendon, with surrounding severe infraspinatus tendinopathy and supraspinatus tendinopathy. No tendon retraction or muscular atrophy. 2. Probable small 0.5 cm x 0.5 cm low-grade partial-thickness intrasubstance tear or area of fraying in the superior distal fibers of the subscapularis tendon, with surrounding moderate tendinopathy. 3. Medial subluxation of the medial fibers of the long head of the biceps tendon from the bicipital groove to anterior to the lesser tuberosity of the humerus, with associated proximal biceps tendinopathy. 4. Degeneration or degenerative tear is suspected throughout the superior labrum, and possibly the inferior labrum. 5. Mild osteoarthrosis in the inferior aspect of the glenohumeral joint. 6. Severe AC joint osteoarthrosis, with large marginal osteophytes which narrow the supraspinatus outlet. Mild subacromial/subdeltoid bursitis. 7. 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 I recommend continued clinical follow up to assess for stability. [facility] 2 VIE WS[facility]on 02-23-2020 Moderate degenerativ e changes at the acromioclavicular joint with undersurface spurring measuring 7 mm, which could contribute to outlet impingement. [facility] [place] EXAM: XR SHOULDER RIGHT (MIN 2 VIEWS). HISTORY: M19.011. 74-year-old male, right shoulder pain, arthritis right shoulder region. COMPARISON: None. TECHNIQUE: 3 views right shoulder FINDINGS: Moderate osteoarthritic change acromioclavicular joint with undersurface spurring. Minimal degenerative narrowing at the glenohumeral joint. [facility] [place], [facility] Incoming Radiant Results From [facility] - 02/23/2020 4:11 PM EST EXAM: XR SHOULDER RIGHT (MIN 2 VIEWS). HISTORY: M19.011. 74-year-old male, right shoulder pain, arthritis right shoulder region. COMPARISON: None. TECHNIQUE: 3 views right shoulder FINDINGS: Moderate osteoarthritic change acromioclavicular joint with undersurface spurring. Minimal degenerative narrowing at the glenohumeral joint. IMPRESSION: Moderate degenerative changes at the acromioclavicular joint with undersurface spurring measuring 7 mm, which could contribute to outlet impingement. [place] Vital Signs Date Time Vital Sign Value Performing Clinician Vikas ford 05-09-2020 15:35-0500 BP Diastolic 58 mm[Hg] [place], [place] 05-09-2020 15:35-0500 BP Systolic 113 mm[Hg] [place] 05-09-2020 15:35-0500 Pulse (Heart Rate) 60 /min [place] 05-09-2020 15:35-0500 Pulse Oximetry 96 % [place] 05-09-2020 15:35-0500 Respiratory Rate 18 /min [place], [place] 05-09-2020 15:05-0500 Body Temperature 96.49 [degF] [place], [place] 05-09-2020 10:31-0500 BMI (Body Mass Index) 26.09 kg/m2 [place], [place] 05-09-2020 10:31-0500 Body weight 76.7 kg [place] 05-09-2020 10:31-0500 Height 171.5 cm [place] Encounters Encounter Date Encounter Type Care Provider Facility Start: 09-06-2023 End: 09-06-2023 ambulatory PALMA SALGADO Not Available Start: 06-15-2023 End: 06-18-2023 ambulatory DANIEL POP [facility] Start: 05-21-2023 End: 05-21-2023 ambulatory SHAYLEE PLATA Not Available Start: 04-12-2023 End: 04-12-2023 ambulatory PALMA SALGADO Not Available Start: 04-02-2023 End: 04-02-2023 ambulatory PRETTY Tierney POCOS Not Available Start: 03-05-2023 End: 03-05-2023 ambulatory PRETTY Tierney POCOS Not Available Start: 03-01-2023 End: 03-04-2023 ambulatory DANIEL POP [facility] Start: 02-01-2023 End: 02-02-2023 ambulatory Ponce Fuentes MD Facility:[facility] [place] Start: 04-23-2022 End: 04-24-[address] DOCTOR ARNOLD Facility:[facility] Start: 04-20-2022 End: 04-20-2022 Patient encounter status Daniel Pop DO Work Phone: [facility] Start: 04-20-2022 End: 04-20-2022 Subsequent hospital visit by physician Daniel Pop DO Work Phone: [facility] Comment on above: Pre-op testing Start: 04-07-2022 End: 04-07-[address] DOCTOR ARNOLD Facility:[facility] Start: 03-19-2022 End: 03-20-[address] ABNER WASHINGTON Facility:[facility] Start: 07-22-2021 End: 07-23-[address] ABNER WASHINGTON Facility:[facility] Start: 07-16-2021 End: 07-17-[address] OTF LIAO Facility:[facility] Start: 08-15-2020 End: 08-17-2020 Subsequent hospital visit by physician Daniel Pop DO Work Phone: [facility] Start: 07-15-2020 End: 07-15-2020 Subsequent hospital visit by physician Alisia Sapp [facility] Comment on above: Arrived Start: 07-08-2020 End: 07-08-2020 Subsequent hospital visit by physician Nathalie [place] [facility] Comment on above: Arrived Start: 07-03-2020 End: 07-03-2020 Subsequent hospital visit by physician Quynh Worthington [facility] Comment on above: Arrived Start: 07-01-2020 End: 07-01-2020 Subsequent hospital visit by physician Alisia Sapp [facility] Comment on above: Arrived Start: 06-26-2020 End: 06-26-2020 Subsequent hospital visit by physician Nathalie [place] [facility] Comment on above: Arrived Start: 06-24-2020 End: 06-24-2020 Subsequent hospital visit by physician Alisia Sapp [facility] Comment on above: Arrived Start: 06-21-2020 End: 06-21-2020 Subsequent hospital visit by physician Alisia Sapp [facility] Comment on above: Arrived Start: 06-19-2020 End: 06-19-2020 Subsequent hospital visit by physician Quynh [facility] Comment on above: Arrived Start: 06-14-2020 End: 06-14-2020 Subsequent hospital visit by physician Nathalie [place] [facility] Comment on above: Arrived Start: 06-12-2020 End: 06-12-2020 Subsequent hospital visit by physician Nathalie [place] [facility] Comment on above: Arrived Start: 06-10-2020 End: 06-10-2020 Subsequent hospital visit by physician Nathalie [place] [facility] Comment on above: Arrived Start: 06-07-2020 End: 06-07-2020 Subsequent hospital visit by physician Quynh ARROYOH[facility] Therapy Comment on above: Arrived Start: 06-05-2020 End: 06-05-2020 Subsequent hospital visit by physician Quynh ARROYOH[facility] Comment on above: Arrived Start: 05-29-2020 End: 05-29-2020 Subsequent hospital visit by physician Quynh Worthington [facility] Comment on above: Arrived Start: 05-09-2020 End: 05-09-2020 Subsequent hospital visit by physician Pretty Dawson Work Phone: [facility] Comment on above: Rotator cuff syndrom e of right shoulder (Primary Dx) Start: 05-09-2020 End: 05-09-2020 Subsequent hospital visit by physician Anderson Covid19 Pat Screening Schedule [facility] Comment on above: Arrived Start: 05-02-2020 End: 05-04-2020 Subsequent hospital visit by physician Anderson Dig Rad 1 [facility] Comment on above: Pre-op chest exam Start: 04-24-2020 End: 04-26-2020 Subsequent hospital visit by physician Anderson Mri Scanner [facility] Comment on above: Impingement syndrome of right shoulder Start: 04-17-2020 End: 04-17-2020 Subsequent hospital visit by physician Rosalino ARROY[facility] Physical Therapy Comment on above: Arrived Start: 04-15-2020 End: 04-15-2020 Subsequent hospital visit by physician Danay Can [facility] Comment on above: Arrived Start: 04-11-2020 End: 04-11-2020 Subsequent hospital visit by physician Danay Can [facility] Comment on above: Arrived Start: 04-09-2020 End: 04-09-2020 Subsequent hospital visit by physician Rosalino Singh [facility] Physical Therapy Comment on above: Arrived Start: 04-03-2020 End: 04-03-2020 Subsequent hospital visit by physician Rosalino Singh [facility] Physical Therapy Comment on above: Arrived Start: 04-01-2020 End: 04-01-2020 Subsequent hospital visit by physician Rosalino ARROYO Physical Therapy Comment on above: Arrived Start: 03-27-2020 End: 03-27-2020 Subsequent hospital visit by physician Ben Albarado Work Phone: [facility] Comment on above: Arrived Start: 03-26-2020 End: 03-26-2020 Subsequent hospital visit by physician Danay Can [facility] Comment on above: Arrived Start: 03-21-2020 End: 03-21-2020 Subsequent hospital visit by physician Rosalino Singh [facility] Physical Therapy Comment on above: Arrived Start: 03-19-2020 End: 03-19-2020 Subsequent hospital visit by physician Danay Can [facility] Comment on above: Arrived Start: 02-23-2020 End: 02-25-2020 Subsequent hospital visit by physician Anderson Additional Xray At [facility] Comment on above: Arthritis of right s [place] region Start: 12-20-2018 End: 12-22-2018 Subsequent hospital visit by physician Daniel Pop [facility] Procedures Date Procedure Procedure Detail Performing Clinician Start: 04-20-2022 Ecg routine ecg w/le ast 12 lds w/i&r Brian Mckeon MD Work Phone: Start: 05-09-2020 Gluc bld gluc mntr d ev cleared fda spec home use Pretty Dawson Work Phone: Start: 05-09-2020 Gluc bld gluc mntr d ev cleared fda spec home use Pretty Dawson Work Phone: Start: 05-09-2020 COVID-19 Pete Jau regui Work Phone: Start: 05-02-2020 Radiologic exam ches t 2 views Pretty Dawson Work Phone: Start: 05-02-2020 Basic metabolic pane l calcium total Pretty Dawson Work Phone: Start: 05-02-2020 Blood count complete auto&auto difrntl wbc Pretty Dawson Work Phone: Start: 04-24-2020 Mri any jt upper extremity w/o contrast matrl Pretty Dawson Work Phone: Start: 02-23-2020 Radex shoulder compl ete minimum 2 views Daniel Pop Work Phone: Plan of Treatment Date Care Activity Detail Author Start: 05-04-2022 End: 05-04-2022 Admission to same day surgery center 05/04/2022 Surgery IP [place] [address] COLONOSCOPY [facility] Comment on above: COLONOSCOPY Start: 05-04-2022 End: 05-04-2022 Colon ca scrn not hi rsk ind COLORECTAL CANCER SCREENI NG, NOT HIGH RISK Screening for colon cancer 05/04/2022 7:30 AM EST [facility] Start: 05-04-2022 End: 05-04-2022 Esophagogastroduodenoscopy transoral diagnostic EGD ESOPHAGOGASTRODUODENOSCOPY Screening for colon cancer 05/04/2022 7:30 AM EST [facility] Start: 05-04-2022 Subsequent hospital visit by physician 05/04/2022 Hospital Encounter IP Unit Back, MD Brian [address] [place] [address] [facility] Start: 05-02-2021 Creatinine measurement Creatinine monitoring [facility] [place], [place] Start: 05-02-2021 Potassium monitoring Potassium monitoring [facility], [place] Start: 08-13-2020 COVID-19 Vaccine (2 - Booster for Hermila series) COVID-19 Vaccine (2 - Booster for Hermila series) [facility] Start: 07-11-2020 End: 07-11-2020 Appointment [facility] Start: 07-08-2020 End: 07-08-2020 Appointment 07/08/2020 Appointment Physical Therapy Nathalie [place] [facility] Start: 07-05-2020 End: 07-05-2020 Appointment 07/05/2020 Appointment Physical Therapy Nathalie [place] [facility] Start: 07-03-2020 End: 07-03-2020 Appointment 07/03/2020 Appointment Physical Therapy Quynh Worthington PT [facility] Start: 07-01-2020 End: 07-01-2020 Appointment 07/01/2020 Appointment Physical Therapy Alisia Sapp [facility] Start: 06-28-2020 End: 06-28-2020 Appointment 06/28/2020 Appointment Physical Therapy Quynh Worthington PT [facility] Start: 06-26-2020 End: 06-26-2020 Appointment 06/26/2020 Appointment Physical Therapy Nathalie [place] [facility] Start: 06-24-2020 End: 06-24-2020 Appointment 06/24/2020 Appointment Physical Therapy Alisia Sapp [facility] Start: 06-24-2020 End: 06-24-2020 Appointment 06/24/2020 Appointment Physical Nathalie Fierro [facility] Start: 06-21-2020 End: 06-21-2020 Appointment [facility] Start: 06-19-2020 End: 06-19-2020 Appointment 06/19/2020 Appointment Physical Therapy Quynh Worthington PT [facility] Start: 06-17-2020 End: 06-17-2020 Appointment 06/17/2020 Appointment Physical Therapy Nathalie [place] [facility] Start: 06-14-2020 End: 06-14-2020 Appointment 06/14/2020 Appointment Physical Therapy Nathalie [place] [facility] Start: 06-12-2020 End: 06-12-2020 Appointment 06/12/2020 Appointment Physical Therapy Nathalie [place] [facility] Start: 06-10-2020 End: 06-10-2020 Appointment 06/10/2020 Appointment Physical Therapy Nathalie [place] [facility] Start: 06-07-2020 End: 06-07-2020 Appointment 06/07/2020 Appointment Physical Therapy Quynh Worthington PT [facility] Start: 06-05-2020 End: 06-05-2020 Appointment 06/05/2020 Appointment Physical Therapy Quynh Worthington PT [facility] Start: 06-03-2020 [facility] Start: 05-31-2020 Hospital Encounter 05/31/2020 [facility] Alisia Rojas [facility] Start: 05-09-2020 End: 05-09-2020 Hospital Encounter [facility] Comment on above: RIGHT SHOULDER ARTHROSCOPY PROBABLE ROTA TOR CUFF REPAIR... LONG HEAD BICEPS TENODESIS Start: 04-17-2020 End: 04-17-2020 Appointment 04/17/2020 Appointment Physical Therapy Rosalino Singh PTA [facility] Start: 04-15-2020 End: 04-15-2020 Appointment 04/15/2020 Appointment Physical Therapy Danay Can PT [facility] Start: 04-11-2020 End: 04-11-2020 Appointment 04/11/2020 Appointment Physical Therapy Danay Can PT [facility] Start: 04-09-2020 End: 04-09-2020 Appointment 04/09/2020 Appointment Physical Therapy Rosalino Singh [employer] REPAIRER [facility] Start: 04-03-2020 End: 04-03-2020 Appointment 04/03/2020 Appointment Physical Therapy Francisco RosalinoKULWANT [facility] Start: 04-01-2020 End: 04-01-2020 Appointment 04/01/2020 Appointment Physical Therapy Francisco Rosalino [employer] REPAIRER [facility] Start: 03-27-2020 End: 03-27-2020 Appointment 03/27/2020 Appointment Physical Therapy Ben Albarado, PT [address] [place] [address] [phone] [facility] Start: 03-26-2020 End: 03-26-2020 Appointment 03/26/2020 Appointment Physical Therapy Danay Can PT [facility] Start: 03-21-2020 End: 03-21-2020 Appointment 03/21/2020 Appointment Physical Therapy Francisco Rosalino [employer] REPAIRER [facility] Start: 12-01-2019 Colon cancer screen colonoscopy Colon cancer screen colonoscopy [place], [place] Start: 12-04-2018 Influenza vaccination Flu vaccine (#1) [place] Start: 09-22-2018 Annual Wellness Visit (AWV) Annual Wellness Visit (AWV) [facility] Start: 03-02-2018 Pneumococcal 65+ years Vaccine (2 of 2 - PCV13) Pneumococcal 65+ years Vaccine (2 of 2 - PCV13) [place] Start: 06-22-1993 Shingles Vaccine (1 of 2) Shingles Vaccine (1 of 2) [facility] Start: 06-22-1962 DTaP/Tdap/Td vaccine (1 - Tdap) DTaP/Tdap/Td vaccine (1 - Tdap) [facility] Start: 06-22-1961 Hepatitis C screening Hepatitis C screen [facility] Start: 1959 COVID-19 Vaccine (1 of 2) COVID-19 Vaccine (1 of 2) [place], [place] Start: 1959 COVID-19 Vaccine (1) COVID-19 Vaccine (1) [facility] Work Phone: Start: 1955 Depression Screen Depression Screen [facility] Start: 06-22-1953 [object Object] Diabetic foot exam [place], [place] Start: 06-22-1953 A1C test (Diabetic or Prediabetic) A1C test (Diabetic or Prediabetic) [place] Start: 06-22-1953 Diabetic retinal exam Diabetic retinal exam [place] Start: 06-22-[address] [facility] Start: 06-22-1953 Lipid screen Lipid screen [place], [place] Start: 1943 AAA screen AAA screen [place], [place] Start: 1943 Creatinine measurement Creatinine monitoring [place] Start: 1943 Creatinine monitoring Creatinine monitoring [place] Start: 1943 Hepatitis C screening Hepatitis C screen [place], [place] Start: 1943 Potassium monitoring Potassium monitoring [place] Oxygen therapy [[facility] Data Set] Initiate Oxygen Therapy Protocol Respiratory Care Routine Daily until discontinued starting 05/09/2020 [place] Comment on above: Daily until discontinued starting 2020 End: 05-09-2020 POCT glucose POCT glucose Point of Care Testing Routine One Time for 1 Occurrences starting 05/09/2020 until 05/09/2020 [place] Comment on above: One Time for 1 Occurrences starting 07/2020 until 05/09/2020 Payers Date Payer Category Payer Medicare 2022 Private Health Insurance 2016 Medicare MEDICARE MEDICAR E PART A AND B xxxxxxxxxx 2016-Present [phone] [address] [address] [place] [address] xxxxxxxxxx [id number] 2016 Private Health Insurance HUMANA HUMANA MEDICARE SUPP xxxxxxxxx 2016-Present [address] [address] [place] [address] xxxxxxxxx [id number] 1959 Medicare [id number] 1959 Private Health Insurance [id number] 1943 Unknown [id number] [id number] .593 1943 Unknown [id number] 2.16.840.1.095721.3.579.2 .593 1943 Unknown [id number] 2.16.840.1.848075.3.579.2 .593 1943 Unknown [id number] 2.16.840.1.564386.3.579.2 .593 1943 Unknown [id number] 2.16.840.1.520107.3.579.2 .593 1943 Unknown [id number] 2.16.840.1.950598.3.579.2 .196 1943 Unknown [id number] 2.16.840.1.120381.3.579.2 .174 1943 Unknown [id number] 2.16.840.1.074988.3.579.2 .174 1943 Unknown [id number] 2.16.840.1.806699.3.579.2 .174 1943 Unknown [id number] 2.16.840.1.327124.3.579.2 .174 1943 Unknown [id number] 2.16.840.1.820943.3.579.2 .1259 1943 Unknown [id number] 2.16.840.1.835741.3.579.2 .1259 1943 Unknown [id number] 2.16.840.1.220057.3.579.2 .1259 1943 Unknown [id number] 2.16.840.1.800376.3.579.2 .9 1943 Unknown [id number] 2.16.840.1.125839.3.579.2 .1259 1943 Unknown [id number] 2.16.840.1.441152.3.579.2 .1259 1943 Unknown [id number] [id number] .1259 Social History Date Type Detail Facility Start: 12-15-2016 End: 04-20-2022 Tobacco smoking status NHIS Former [place] End: 11-30-2006 History of tobacco use Current [place] End: 11-30-2006 History of tobacco use Cigarette [place] End: 11-30-2006 History of tobacco use Pipe Smoker [place] Start: 12-15-2016 End: 04-20-2022 Tobacco use and exposure Former user [place] History of tobacco use Snuff User [place] History of tobacco use Chews Tobacco [place] Start: 12-15-2016 End: 04-20-2022 Alcohol intake Current drinker of alcohol (finding) [place] Start: 1945 Sex Assigned At Not on file M [place], [place] Exposure to SARS-CoV -2 (event) Not sure [place] Start: 12-15-2016 Alcohol intake Yes [place] Start: 05-09-2020 End: 04-20-2022 Alcohol intake [facility] [employer] Phone: Start: 04-20-2022 History SDOH Financial 4 [facility] [employer] [facility] [employer] Phone: Start: 04-20-2022 History SDOH Food Worry 1 [employer] [employer] [facility] [employer] Phone: Medical Equipment Procedure Code Equipment Code Equipment Origin al Text Equipment Identifier Dates [employer] [id number] Mm [employer] C [id number] Start: 05-09-2020 Consultation note 04-23-2022 Note Date & Type Note Facility 04-23-2022 Note CONSULTATION CONSULTATION DATE: 04/23/2022 HISTORY OF PRESENT ILLNESS: This is a very pleasant, 76-year-old gentleman who returns to the clinic status post left SI joint injection completed on 04/07/2022. The patient received 100% relief and is ongoing. He does not report any pain today at rest, but with certain activities such as carrying wood and bending, his pain may go to 1-2/10. Medications include a baby aspirin, multivitamin regimen, Tylenol, and he uses topical Biofreeze as needed. He denies any new pain patterns or vasomotor weakness. Patient's REVIEW OF SYSTEMS / PAST MEDICAL HISTORY / ALLERGIES and IMAGES have been reviewed and noted on the chart. PHYSICAL EXAM: VITAL SIGNS: Blood pressure 133/63, heart rate is 96. Temperature is 96.9. He is 5'7 , weighs 78 kg. GENERAL IMPRESSION: Pleasant, appropriate, no acute distress. FOCUSED EXAM - BACK: Range of motion is functional in lateral rotation and flexion/extension. Paravertebral muscles are non-spasmodic. No reproduction of spinal axial pain upon compression of the lumbar facets. Medina's point is non-tender bilaterally. Negative FABERs and compression test. MUSCULOSKELETAL: Diffuse muscle atrophy noted bilateral lower extremities. Motor is 4/5 bilaterally. Patient ambulates unassisted with a steady gait. NEUROLOGICAL: Radicular sensory is intact. Negative polyneuropathy. Patient is cognitively intact. DIAGNOSIS: Left sacroiliitis and lumbar spasms. PLAN: Overall, the patient is doing very, very well. I did encourage him to continue taking his magnesium as well as using topical heat with stretches that were demonstrated. Safety was discussed with his wood cutting activities. At this time, we will schedule him on an as needed basis, and patient will contact the office as needed. [facility] Consultation note 03-19-2022 Note Date & Type Note Facility 03-19-2022 Note CONSULTATION CONSULTATION DATE: 03/19/2022 HISTORY OF PRESENT ILLNESS: This is a 76-year-old gentleman returning to the clinic for left hip and groin pain. He was last seen in July of 2021 and has been doing well ever since. Approximately a month ago, the patient was picking a 200 pound ramp and twisted and has since had left buttock and hip pain, since that time. The patient has had bilateral SI ablations in the past which was in 10/2021. Patient's pain is very similar to that. Pain does radiate to his left groin, which alternates as a dull and sharp pain. He is unable to lay comfortably on his left side. He will take approximately 400 mg of ibuprofen, which does very little to help him. Activities such as twisting, pushing, pulling, lifting, stairs, bending and side lying aggravate his pain. He denies any vasomotor weakness. Patient's REVIEW OF SYSTEMS / PAST MEDICAL HISTORY / ALLERGIES and IMAGES have been reviewed and noted in the chart. PHYSICAL EXAM: VITAL SIGNS: Blood pressure is 159/72. Heart rate is 61. Temperature is 97.1. He is 5'7 , weighs 78 kg. GENERAL APPEARANCE: Pleasant, appropriate, no acute distress. FOCUSED EXAM - BACK: Range of motion is functional in lateral rotation and flexion/extension. Medina's point to the left is tender with positive jump response. Pain radiates to the left hip and groin indicative of left sacroiliitis. FABERs, compression and thigh thrust tests are positive. No reproduction of spinal axial pain along lower lumbar facet compression. Pain does not radiate below the knees. MUSCULOSKELETAL: Motor is intact, 4/5 bilaterally. Patient walks steadily unassisted. NEUROLOGICALLY: Radicular sensory is intact. Negative polyneuropathy. +2 bilateral patellar reflexes. DIAGNOSIS: Left sacroiliitis, left hip pain. PLAN: We will authorize for a left SI joint injection. Patient does have a TENS unit and he was directed to use that. He will also start meloxicam 15 mg daily. Patient agrees to the above procedure, will be followed up in the clinic thereafter. [facility] Clinical Note 07-22-2021 Note Date & Type Note Facility 07-22-2021 Note OPERATIVE NOTE OPERATION DATE:07/22/2021 PREOPERATIVE DIAGNOSIS: Left shoulder pain, AC joint arthrosis. POSTOPERATIVE DIAGNOSIS: Left shoulder pain, AC joint arthrosis. PROCEDURE: Left AC joint injection. Subsequent to obtaining informed consent, the patient was placed in the sitting position. Alcohol prep is used to sterilize the site. A 25 gauge needle is advanced and it comes to rest along the left AC joint. Negative heme. Marcaine 0.125% along with Kenalog 20 mg is placed. Negative heme. The patient tolerates the procedure well, without any overt complication. Will be followed up in the office. [facility] Signed and Approved by: DR ABNER WASHINGTON . 07/29/2021 12:16:[address] [facility] Clinical Note 07-16-2021 Note Date & Type Note Facility 07-16-2021 Note PROCEDURE: XR SHOULD ER LT 2V or > HISTORY: Pain of left shoulder joint radiating into left arm for 2 months; no known injury COMPARISON: None. FINDINGS: BONES:Narrowing of the acromioclavicular joint with small undersurface osteophytes. Unremarkable humeral head and glenohumeral joint. SOFT TISSUES:No visible soft tissue swelling. EFFUSION:None visible. OTHER: Negative. IMPRESSION: 1. No acute bone abnormality. 2. Mild degenerative change of the acromioclavicular joint. Electronically authenticated by: OTF LIAO Date: 2021-07-16 15:[address] [facility] Consultation note 07-16-2021 Note Date & Type Note Facility 07-16-2021 Note CONSULTATION PAIN MANAGEMENT CONSULTATION HISTORY OF PRESENT ILLNESS: This is a pleasant and very active, 76-year-old gentleman who was a prior patient of the clinic and self-referred himself back to the clinic today. He is recently complaining of left shoulder pain that has been lingering for approximately one month. He reports no injury. It is painful lying on it and with lateral raises. He has good range of motion but slightly limited due to pain. He describes the pain as achy. He did have right shoulder surgery in May of 2020, which entailed bicep tendon repair and rotator cuff repair. The patient feels, while was rehabilitating his right shoulder, that the increased use of his left arm and shoulder may have aggravated it. He denies any muscle weakness to the left shoulder, denies dropping objects. The pain is aggravated by pushing, pulling, lifting objects and doing ADLs. He currently takes ibuprofen 400 mg daily p.r.n., which decrease his pain. Patient's REVIEW OF SYSTEMS / PAST MEDICAL HISTORY / ALLERGIES and IMAGES have been reviewed and they are noted on the chart. PHYSICAL EXAM: VITALS: Blood pressure 136/72, heart rate is 63. Temperature is 97.5. He is 5'7 and weighs 77 kg. GENERAL APPEARANCE: Pleasant, appropriate, sitting in the chair, in no acute distress. is present. FOCUSED EXAM - UPPER EXTREMITIES: Right shoulder with reproduction of pain pattern with lateral adduction. Tenderness to the anterior aspects along the subscapularis tendon. Bicep is intact. No crepitus and no edema to the joint. MUSCULOSKELETAL: Motor is intact, 4/5 bilaterally. NEUROLOGICALLY: Brachioradialis bilaterally +2 reflexes. Radicular sensory is intact. IMPRESSION: Left shoulder pain, left shoulder osteoarthritis and subscapularis tendonitis. PLAN: Due to lack of imaging, we will get him a shoulder multi-view x-ray today. He was encouraged to continue taking his ibuprofen in addition to his multivitamins daily. I explained the use of Vicks VapoRub with Voltaren gel daily to his shoulder. Patient agrees with plan of care and the goal is to get him in next week with Dr. Washington, with the anticipation of a possible intra-articular left shoulder steroid injection. Patient and agree with plan of care and all questions answered. [facility] Signed and Approved by: JESSE WOOD . 07/17/2021 16:20:00 [facility] Evaluation note Note Date & Type Note Facility Evaluation note Diagnosis Pre-op testing Preoperative examination, unspecified Screening for colon cancer Special screening for malignant neoplasms, colon documented in this encounter [facility] [employer] Work Phone: Assessments Diagnosis Arthritis of right shoulder region Unspecified arthropathy, shoulder region Diagnosis Impingement syndrome of right shoulder Other affections of shoulder region, not elsewhere classified Diagnosis Pre-op chest exam Pre-operative respiratory examination Diagnosis Rotator cuff syndrome of right shoulder- Primary Disorders of bursae and tendons in shoulder region, unspecified Advance Directives No Advanced Directives Records FoundDocuments on File Type Date Recorded Patient Web Marketing Intern Expl anation ACP-Advance Directive ACP-Power of Wire Inspector Latest Code Status on File Code Status Date Activated Date Inactivated Comments Full Code 11/30/2016 6:33 AM 11/30/2016 11:59 AM Documents on File Type Date Recorded Patient Web Marketing Intern Expl anation ACP-Advance Directive ACP-Power of Wire Inspector Latest Code Status on File Code Status Date Activated Date Inactivated Comments Full Code 11/30/2016 6:33 AM 11/30/2016 11:59 AM Latest Code Status on File Code Status Date Activated Date Inactivated Comments Full Code 05/09/2020 2:39 PM Full Code 05/09/2020 10:31 AM 05/09/2020 2:39 PM Full Code 11/30/2016 6:33 AM 11/30/2016 11:59 AM Latest Code Status on File Code Status Date Activated Date Inactivated Comments Full Code 05/09/2020 2:39 PM 05/09/2020 6:46 PM Latest Code Status on File Code Status Date Activated Date Inactivated Comments Full Code 05/09/2020 2:39 PM 05/09/2020 6:46 PM Full Code 05/09/2020 10:31 AM 05/09/2020 2:39 PM Full Code 11/30/2016 6:33 AM 11/30/2016 11:59 AM Documents on File Type Date Recorded Patient Web Marketing Intern Expl anation Advance Directives and Living Will Power of Wire Inspector Healthcare Agents on File Name Relationship Healthcare Agent [facility] Marianna Starks Spouse Primary Decision Maker History of Present Illness * Danay Can, PT - 03/19/2020 8:30 AM EST [facility] Outpatient Physical Therapy Evaluation Date: 03/19/2020 Patient: Tony Starks : 1945 Referring Practitioner: Dr. Pretty Dawson Referral Date : 03/14/20 Diagnosis: R shoulder IS, AC, OA Treatment Diagnosis: R shoulder pain Onset Date: 03/14/20 PT Insurance Information: [facility] Total # of Visits Approved: 18 Per Physician Order Total # of Visits to Date: 1 No Show: 0 Canceled Appointment: 0 Subjective Additional Pertinent Hx: Pt reports R shoulder was painful in the summer. Pt had an injection in November which lasted 3months, just recieved injection from Dr. Dawson on 03/14/20. Pt reports this AM pain is 3/10. Pt reports he does have a bone spur in the shoulder. Prior to injection pain was 8-9/10.Pt carries wood and chops wood for heat. AC spurring per xray Pain Screening Patient Currently in Pain: Yes Pain Assessment Pain Assessment: 0-10 Pain Level: 3 Social/Functional History Leisure & Hobbies: Hunting, gardening Objective Observation/Palpation Posture: Fair(Slightly rounded shoulders B/L) Strength RUE R Shoulder Flexion: 4/5 R Shoulder Extension: 5/5 R Shoulder ABduction: 4-/5 R Shoulder Internal Rotation: 5/5 R Shoulder External Rotation: 3+/5 R Shoulder Horizontal ABduction: 3+/5 AROM RUE (degrees) R Shoulder Flexion 0-180: 143deg R Shoulder ABduction 0-180: 130deg PROM RUE (degrees) R Shoulder Int Rotation 0-70: 23deg R Shoulder Ext Rotation 0-90: 44deg Assessment Body structures, Functions, Activity limitations: Decreased functional mobility , Decreased ADL status, Decreased ROM, Decreased strength, Decreased endurance, Decreased high-level IADLs, Increased pain, Decreased posture Assessment: Pt to benefit from ther ex for ROM and postural education/strengthening. Pt to also benefit from manual therapy for improved joint mobility. Prognosis: Good Decision Making: Medium Complexity Exam: UEFS=41/80 Clinical Presentation: Evolving The Following Comorbities will impact the patient s progression and Plan of Care: Cardiac Disease/Pacemaker, Diabetes and Previous Orthopedic Injury/Surgery Activity Tolerance: Patient Tolerated treatment well Education: POC; Manual therapy for improving joint mobility/mechanics Barriers to Learning: None Goals Short term goals Time Frame for Short term goals: 7 visits Short term goal 1: Pt to report independence and compliance with HEP for ROM and postural strengthening Short term goal 2: Pt to have 45deg of IR to improve dressing kenrick. long term care phlebotomist goals Time Frame for long term care phlebotomist goals : 15 visits(POC Exp 04/30/19) jail goal 1: Pt to score >51/80 on UEFS to improve ADL [place] long term care phlebotomist goal 2: Pt to have ER of 55deg to improve upper body dressing. long term care phlebotomist goal 3: Pt to have 4/5 Horiz ABD strength to improve pt posture. jail goal 4: Pt to have 4/5 ER strength without pain to improve ADL ken[place]. Patient's Goal: Patient goals : Relieve his shoulder pain so he can complete ADLs and hobbies Timed Code Treatment Minutes: 0 Minutes Total Treatment Time: 45 Time In: 0835 Time Out: 919 Danay Can, PT Date: 03/19/2020 documented in this encounter* Rosalino Singh PTA - 03/21/2020 10:30 AM EST [facility] Outpatient Physical Therapy Daily Note Date: 03/21/2020 Patient Name: Tony Starks : 1945 (74 y.o.) Referring Practitioner: Dr. Pretty Dawson Referral Date : 03/14/20 Diagnosis: R shoulder IS, AC, OA Treatment Diagnosis: R shoulder pain Onset Date: 03/14/20 PT Insurance Information: [facility] Total # of Visits Approved: 18 Per Physician Order Total # of Visits to Date: 2 No Show: 0 Canceled Appointment: 0 Plan of Care/Certification Expiration Date: 04/30/19 Pre-Treatment Pain: 2/10 Assessment Assessment: Patient reports R shoulder pain is a 2/10 this morning. Initiated exercises and joint mobs as outlined with good tolerance from patient. Post session patient reports pain remains a 2/10. Chart Reviewed: Yes Plan Plan: Continue with current plan Exercises/Modalities/Manual: See DocFlow Sheet Education: Barriers to Learning: None Goals (Total # of Visits to Date: 2) Short Term Goals - Time Frame for Short term goals: 7 visits Short term goal 1: Pt to report independence and compliance with HEP for ROM and postural strengthening Short term goal 2: Pt to have 45deg of IR to improve dressing [facility]. [facility] Goals - Time Frame for long term care phlebotomist goals : 15 visits(POC Exp 04/30/19) jail goal 1: Pt to score >51/80 on UEFS to improve ADL [place] jail goal 2: Pt to have ER of 55deg to improve upper body dressing. jail goal 3: Pt to have 4/5 Horiz ABD strength to improve pt posture. jail goal 4: Pt to have 4/5 ER strength without pain to improve ADL k[place]. Post Treatment Pain: 2/10 Time In: 1030 Time Out : 1110 Timed Code Treatment Minutes: 40 Minutes Total Treatment Time: 40 Minutes Rosalino Singh PTA Date: 03/21/2020 documented in this encounter* Danay Can, PT - 03/26/2020 10:15 AM EST [facility] Outpatient Physical Therapy Daily Note Date: 03/26/2020 Patient Name: Tony Starks : 1945 (74 y.o.) Referring Practitioner: Dr. Pretty Dawson Referral Date : 03/14/20 Diagnosis: R shoulder IS, AC, OA Treatment Diagnosis: R shoulder pain Onset Date: 03/14/20 PT Insurance Information: [facility] Total # of Visits Approved: 18 Per Physician Order Total # of Visits to Date: 3 No Show: 0 Canceled Appointment: 0 Plan of Care/Certification Expiration Date: 04/30/19 Pre-Treatment Pain: 05/15 Assessment Assessment: PROM: ER=60deg; Pt reports loading wood and soreness noted after 06/12. Progress prone tball to include 1# with good kenrick, some muscle fatigue but no pain. Chart Reviewed: Yes Plan Plan: Continue with current plan Exercises/Modalities/Manual: See DocFlow Sheet Education: progression of therex with 1# Barriers to Learning: None Goals (Total # of Visits to Date: 3) Short Term Goals - Time Frame for Short term goals: 7 visits Short term goal 1: Pt to report independence and compliance with HEP for ROM and postural strengthening Short term goal 2: Pt to have 45deg of IR to improve dressing [facility]. [facility] Goals - Time Frame for long term care phlebotomist goals : 15 visits(POC Exp 04/30/19) long term care phlebotomist goal 1: Pt to score >51/80 on UEFS to improve ADL [place] long term care phlebotomist goal 2: Pt to have ER of 55deg to improve upper body dressing. long term care phlebotomist goal 3: Pt to have 4/5 Horiz ABD strength to improve pt posture. long term care phlebotomist goal 4: Pt to have 4/5 ER strength without pain to improve ADL kenrick. Post Treatment Pain: 04/14 Time In: 1019 Time Out: 1059 Timed Code Treatment Minutes: 40 Minutes Total Treatment Time: 40 Minutes Danay Can PT Date: 03/26/2020 documented in this encounter* Ben Albarado, PT - 03/27/2020 2:30 PM EST [facility] Outpatient Physical Therapy Daily Note Date: 03/27/2020 Patient Name: Tony Starks : 1945 (74 y.o.) Referring Practitioner: Dr. Pretty Dawson Referral Date : 03/14/20 Diagnosis: R shoulder IS, AC, OA Treatment Diagnosis: R shoulder pain Onset Date: 03/14/20 PT Insurance Information: [facility] Total # of Visits Approved: 18 Per Physician Order Total # of Visits to Date: 4 No Show: 0 Canceled Appointment: 0 Plan of Care/Certification Expiration Date: 04/30/19 Pre-Treatment Pain: 210 Assessment Assessment: Patient reports pain 10. Good tolerance to exercise and able to maintain good scapular position/stability. Applied taping for stability (white/brown) and will monitor benefits and skin tolerance; patient educated on precautions and removal of tape. Chart Reviewed: Yes Plan Plan: Continue with current plan Exercises/Modalities/Manual: See DocFlow Sheet Education: Taping benefits and precautions Barriers to Learning: None Goals (Total # of Visits to Date: 4) Short Term Goals - Time Frame for Short term goals: 7 visits Short term goal 1: Pt to report independence and compliance with HEP for ROM and postural strengthening Short term goal 2: Pt to have 45deg of IR to improve dressing kenrick. Outside Sales Representative Insurance Goals - Time Frame for jail goals : 15 visits(POC Exp 04/30/19) jail goal 1: Pt to score >51/80 on UEFS to improve ADL [place] jail goal 2: Pt to have ER of 55deg to improve upper body dressing. jail goal 3: Pt to have 4/5 Horiz ABD strength to improve pt posture. long term care phlebotomist goal 4: Pt to have 4/5 ER strength without pain to improve ADL ken[place]. Post Treatment Pain: 2/10 Time In: 1440 Time Out : 1525 Timed Code Treatment Minutes: 40 Minutes Total Treatment Time: 40 Minutes BEN ALBARADO PT Date: 03/27/2020 documented in this encounter* Rosalino Singh, FAREBOX REPAIRER - 04/09/2020 10:30 AM EST [facility] Outpatient Physical Therapy Daily Note Date: 04/09/2020 Patient Name: Tony Starks : 1945 (74 y.o.) Referring Practitioner: Dr. Pretty Dawson Referral Date : 03/14/20 Diagnosis: R shoulder IS, AC, OA Treatment Diagnosis: R shoulder pain Onset Date: 03/14/20 PT Insurance Information: [facility] Total # of Visits Approved: 18 Per Physician Order Total # of Visits to Date: 7 No Show: 0 Canceled Appointment: 0 Plan of Care/Certification Expiration Date: 04/30/19 Pre-Treatment Pain: 4/10 Assessment Assessment: Patient reports R shoulder pain is a 4/10 this morning. He states the pain is a mild ache. He notes he hasn't had any sharp pains since receiving injection. For the most part patient states he is able to sleep pretty well at night depending on how much he uses his arm during the day. R shoulder PROM: ER @90 = 77 deg and IR @90 = 55 deg. Since starting therapy patient reports R shoulder is approx 60% better. Chart Reviewed: Yes Plan Plan: Continue with current plan Exercises/Modalities/Manual: See DocFlow Sheet Education: Barriers to Learning: None Goals (Total # of Visits to Date: 7) Short Term Goals - Time Frame for Short term goals: 7 visits Short term goal 1: Pt to report independence and compliance with HEP for ROM and postural strengthening - [facility] Short term goal 2: Pt to have 45deg of IR to improve dressing kenrick. - [facility] Goals - Time Frame for long term care phlebotomist goals : 15 visits(POC Exp 04/30/19) long term care phlebotomist goal 1: Pt to score >51/80 on UEFS to improve ADL [place] jail goal 2: Pt to have ER of 55deg to improve upper body dressing. - MET jail goal 3: Pt to have 4/5 Horiz ABD strength to improve pt posture. jail goal 4: Pt to have 4/5 ER strength without pain to improve ADL k[place]. Post Treatment Pain: 2-3/10 Time In: 1030 Time Out : 1115 Timed Code Treatment Minutes: 45 Minutes Total Treatment Time: 45 Minutes Rosalino SinghKULWANT Date: 04/09/2020 documented in this encounter* Danay Can, PT - 04/11/2020 10:30 AM EST [facility] Outpatient Physical Therapy Daily Note Date: 04/11/2020 Patient Name: Tony Starks : 1945 (74 y.o.) Referring Practitioner: Dr. Pretty Dawson Referral Date : 03/14/20 Diagnosis: R shoulder IS, AC, OA Treatment Diagnosis: R shoulder pain Onset Date: 03/14/20 PT Insurance Information: [facility] Total # of Visits Approved: 18 Per Physician Order Total # of Visits to Date: 8 No Show: 0 Canceled Appointment: 0 Plan of Care/Certification Expiration Date: 04/30/19 Pre-Treatment Pain: 2/10 Assessment Assessment: Pt reports R shoulder pain is 2/10 at beginning of session. Pt repored soreness from previous exercise session which he rated about a 6/10. He was doing house work and carring some wood. Pt reports he has an appointment with Dr. Dawson for his shoulder on 04/18/20. Pt progressed through exercises today with increased reps on Tband exercises. R shoulder ER measured 90deg passively and R shoulder IR PROM at 40deg. Pt reported some pinching at the supierior lateral aspect of the R shoulder during exercises with overhead movements, attempted to provide different body mechanics to allow for more spacing in GH joint with mild success. Chart Reviewed: Yes Plan Plan: Continue with current plan Exercises/Modalities/Manual: See DocFlow Sheet Education: KT placement modification due to skin irritation Barriers to Learning: None Goals (Total # of Visits to Date: 8) Short Term Goals - Time Frame for Short term goals: 7 visits Short term goal 1: Pt to report independence and compliance with HEP for ROM and postural strengthening - MET Short term goal 2: Pt to have 45deg of IR to improve dressing kenrick. - [facility] Goals - Time Frame for jail goals : 15 visits(POC Exp 04/30/19) jail goal 1: Pt to score >51/80 on UEFS to improve ADL [facility] long term care phlebotomist goal 2: Pt to have ER of 55deg to improve upper body dressing. - MET long term care phlebotomist goal 3: Pt to have 4/5 Horiz ABD strength to improve pt posture. long term care phlebotomist goal 4: Pt to have 4/5 ER strength without pain to improve ADL kenrick. Post Treatment Pain: 05/15 Time In: 1030 Time Out : 1113 Timed Code Treatment Minutes: 43 Minutes Total Treatment Time: 43 Minutes Danay Can, PT Date: 04/11/2020 documented in this encounter* Benitez Bobo - 04/15/2020 10:30 AM EST [facility] Outpatient Physical Therapy Progress Report Date: 04/15/2020 Patient: Tony Starks : 1945 Referring Practitioner: Dr. Pretty Dawson Referral Date : 03/14/20 Diagnosis: R shoulder IS, AC, OA Treatment Diagnosis: R shoulder pain Onset Date: 03/14/20 PT Insurance Information: [facility] Total # of Visits Approved: 18 Per Physician Order Total # of Visits to Date: 9 No Show: 0 Canceled Appointment: 0 Assessment Pt reports R shoulder pain continues to fluctuate 4-6/10 based on activity level. Pt sleep continues to be disrupted due to pain with heavy use. Pt complains of impingement type symptoms which can bereduced by AP and inferior GH joint mobilizations. PROM: R shoulder ER measured 90deg, IR at 40deg Since starting therapy patient reports R shoulder is approx 60% better. Plan to continue x1 visit, then place pt on hold due to plateaued. Prognosis: Good Plan Plan: Continue with current plan Goals Short term goals Time Frame for Short term goals: 7 visits Short term goal 1: Pt to report independence and compliance with HEP for ROM and postural strengthening - MET Short term goal 2: Pt to have 45deg of IR to improve dressing e[place]rick. - MET jail goals Time Frame for long term care phlebotomist goals : 15 visits(POC Exp 04/30/19) jail goal 1: Pt to score >51/80 on UEFS to improve ADL [place] jail goal 2: Pt to have ER of 55deg to improve upper body dressing. - MET long term care phlebotomist goal 3: Pt to have 4/5 Horiz ABD strength to improve pt posture. jail goal 4: Pt to have 4/5 ER strength without pain to improve ADL [place]. Benitez Bobo, SPTA/Directly Supervised By:Danay Can, PT Date: 04/15/2020 * Benitez Bobo - 04/15/2020 10:30 AM EST [facility] Outpatient Physical Therapy Daily Note Date: 04/15/2020 Patient Name: Tony Starks : 1945 (74 y.o.) Referring Practitioner: Dr. Pretty Dawson Referral Date : 03/14/20 Diagnosis: R shoulder IS, AC, OA Treatment Diagnosis: R shoulder pain Onset Date: 03/14/20 PT Insurance Information: [facility] Total # of Visits Approved: 18 Per Physician Order Total # of Visits to Date: 9 No Show: 0 Canceled Appointment: 0 Plan of Care/Certification Expiration Date: 04/30/19 Pre-Treatment Pain: 4/10 Assessment Assessment: Pt reports R shoulder pain is 4/10 at the beginning of session. He reports soreness andpain that woke him Wednesday night after moving wood over the weekend. Instructed through shoulder strengthening and joint mobility. Pt reports anterior lateral shoulder pain during ER theraband exercises and sidelying ER weight exercise. Pt found some relief with posterior and inferior GH joint mobilizations. Pt wishes to hold future scheduling until after his follow up with the physician. Plan Plan: Continue with current plan Exercises/Modalities/Manual: See DocFlow Sheet Education: Increased resistance for rows; verbal cues on ER form Barriers to Learning: None Goals (Total # of Visits to Date: 9) Short Term Goals - Time Frame for Short term goals: 7 visits Short term goal 1: Pt to report independence and compliance with HEP for ROM and postural strengthening - MET Short term goal 2: Pt to have 45deg of IR to improve dressing kenrick. - MET Outside Sales Representative Insurance Goals - Time Frame for long term care phlebotomist goals : 15 visits(POC Exp 04/30/19) jail goal 1: Pt to score >51/80 on UEFS to improve ADL [place] jail goal 2: Pt to have ER of 55deg to improve upper body dressing. - MET jail goal 3: Pt to have 4/5 Horiz ABD strength to improve pt posture. long term care phlebotomist goal 4: Pt to have 4/5 ER strength without pain to improve ADL k[place]. Post Treatment Pain: 2-06/12 Time In: 1028 Time Out : 1117 Timed Code Treatment Minutes: 39 Minutes Total Treatment Time: 39 Minutes Benitez Bobo, PATRICK /Directly Supervised byDanay Can, PT Date: 04/15/2020 documented in this encounter* Amanda Gillis RN - 05/09/2020 4:44 PM EST Pt given a large tshirt for easier ability to place over his dressing. Pt then assisted with sitting at bedside and pt and instructed on application of DonJoy shoulder brace. Pt steady and tolerates well. * Amanda Gillis RN - 05/09/2020 4:44 PM EST Discharge Criteria Outpatients must meet criteria 1 through 7. Up to restroom, void sufficient amount. Yes 1. Minimum 30 minutes after last dose of sedative medication, minimum 120 minutes after last dose of reversal agent. Yes 2. Systolic BP stable within 20 mmHg for 30 minutes & systolic BP between 90 & 180 or within 10 mmHg of baseline. Yes 3. Pulse between 60 and 100 or within 10 bpm of baseline. Yes 4. Spontaneous respiratory rate >/= 10 per minute. Yes 5. SaO2 >/= 95 or >/= baseline. Yes 6. Able to cough and swallow or return to baseline function. Yes 7. Alert and oriented or return to baseline mental status. Yes 8. Demonstrates controlled, coordinated movements, ambulates with steady gait, or return to baseline activity function. Yes 9. Minimal or no pain or nausea, or at a level tolerable and acceptable to patient. Yes 10. Takes and retains oral fluids as allowed. Yes 11. Procedural / perioperative site stable. Minimal or no bleeding. Yes 12. If GI endoscopy procedure, minimal or no abdominal distention or passing flatus. Yes 13. Written discharge instructions and emergency telephone number provided. Yes 14. Accompanied by a responsible adult. Yes Adult patient discharged from facility without responsible person meets above criteria plus the following: a) remains awake without stimulus for 30 minutes b) oriented appropriate for age c) all vital signs stable d) no significant risk of losing protective reflexes e) able to maintain pre-procedure mobility without assistance f) no nausea or dizziness g) transportation arrangements that do not require patient to operate motor Vehicle. Yes * Amanda Gillis RN - 05/09/2020 4:33 PM EST Attempted to clarify patient's dressing discharge instructions. Dr. Dawson called and left a voicemail and a text message and [address] Kwaku Morales' nurse. Dr. Kwaku Morales' nurse does call back shprtly thereafter and informed that she will speak with Dr. Dawson to clarify and will call Tony with dressing change instructions. * Janel Pierre RN - 05/09/2020 4:12 PM EST Discharge Criteria Outpatients must meet criteria 1 through 7. Up to restroom, void sufficient amount. Yes. Gait steady when up 1. Minimum 30 minutes after last dose of sedative medication, minimum 120 minutes after last dose of reversal agent. Yes 2. Systolic BP stable within 20 mmHg for 30 minutes & systolic BP between 90 & 180 or within 10 mmHg of baseline. Yes 3. Pulse between 60 and 100 or within 10 bpm of baseline. Yes 4. Spontaneous respiratory rate >/= 10 per minute. Yes 5. SaO2 >/= 95 or >/= baseline. Yes 6. Able to cough and swallow or return to baseline function. Yes 7. Alert and oriented or return to baseline mental status. Yes 8. Demonstrates controlled, coordinated movements, ambulates with steady gait, or return to baseline activity function. Yes 9. Minimal or no pain or nausea, or at a level tolerable and acceptable to patient. Yes 10. Takes and retains oral fluids as allowed. Yes 11. Procedural / perioperative site stable. Minimal or no bleeding. Yes. Dressing D & I with shoulder immobilizer in place. Cryo cuff in place and explained to pt and spouse. 12. If GI endoscopy procedure, minimal or no abdominal distention or passing flatus. Yes 13. Written discharge instructions and emergency telephone number provided. Yes 14. Accompanied by a responsible adult. Yes Adult patient discharged from facility without responsible person meets above criteria plus the following: a) remains awake without stimulus for 30 minutes b) oriented appropriate for age c) all vital signs stable d) no significant risk of losing protective reflexes e) able to maintain pre-procedure mobility without assistance f) no nausea or dizziness g) transportation arrangements that do not require patient to operate motor Vehicle. Yes * Janel Pierre RN - 05/09/2020 2:33 PM EST fsbs 83 * Janel Pierre RN - 05/09/2020 11:15 AM EST Med rec in progress. Pt cora cappsian. documented in this encounter* Quynh Worthington, PT - 05/29/2020 11:00 AM EST [facility] Outpatient Physical Therapy Evaluation Date: 05/29/2020 Patient: Tony Starks : 1945 Referring Practitioner: Dr. Pretty Dawson Referral Date : 05/23/20 Diagnosis: R shoulder scope, LHB debridment, SAD, RCR Treatment Diagnosis: R shoulder pain s/p RTC sx Onset Date: 05/09/20 PT Insurance Information: [facility] Total # of Visits Approved: 18 Per Physician Order Total # of Visits to Date: 1 No Show: 0 Canceled Appointment: 0 Subjective Additional Pertinent Hx: Pt had RTC repair and biceps debridement sx on 05/09/2020. He arrives with sling on and reports he is to wear for 6 weeks after surgery. Per pt, physician found a benign mass during shoulder surgery. Pt reports 3-4/10 pain on average, he is taking perscribed pain medication to assit with pain at this time. Pt reports pain at LHB insertion, and lateral aspect of shoulder at incision. Pt reports difficulty with sleeping and needing to sleep in recliner.Patient is right handed and very limited with activities since surgery. Pt follows up with physician 06/27/2020. Hx- HTN, DM, Hearing deficit, back pain. Pain Screening Patient Currently in Pain: Yes Pain Assessment Pain Assessment: 0-10 Pain Level: 4 Objective PROM: PROM RUE (degrees) RUE PROM: Exceptions R Shoulder Flex 0-180: 98 R Shoulder ABduction 0-180: 72 R Shoulder Int Rotation 0-70: 48(at 45 degrees abd) R Shoulder Ext Rotation 0-90: 46(at 45 degrees abd) Assessment Body structures, Functions, Activity limitations: Decreased functional mobility , Decreased ADL status, Decreased ROM, Decreased strength, Decreased endurance, Decreased high-level IADLs, Decreased coordination, Increased pain, Decreased posture Assessment: Pt has post surgical pain along the anterior and lateral aspect of the shoulder. Pt to benefit from ther ex for shoulder flexibility following the protocol. Pt to also benefit from shoulder strengthening and postural strengthening as the protocol progresses. Prognosis: Good Decision Making: Medium Complexity Exam: UEFS=35/80 Clinical Presentation: [] Stable/Uncomplicated [x] Evolving [] Unstable/Unpredictable The Following Comorbities will impact the patient s progression and Plan of Care: [x] Diabetes [] Stroke [x] Cardiac Disease/Pacemaker [x] Previous Orthopedic Injury/Surgery [] Seizure Disorder [] WB Restrictions [] Obesity [] Neuropathy Activity Tolerance: Patient Tolerated treatment well Education: POC; HEP; AAROM cane flex, ER, Kayla flexion, codmen's Barriers to Learning: none Goals Short term goals Time Frame for Short term goals: 9 visits Short term goal 1: Pt to show compliance and indepenedence with HEP for shoulder flexiblity / ROM Short term goal 2: Pt to demonstrate PROM R shld 70 deg shoulder ER to improve with dressing. Short term goal 3: Patient to have increase PROM R shld flexion 145 degrees jail goals Time Frame for jail goals : 18 visits jail goal 1: Pt to have improved functional activitities with UEFS score >50/80 long term care phlebotomist goal 2: Pt to demonstrate 135deg AROM shoulder flexion to improve ability to reach into cupboards long term care phlebotomist goal 3: Pt to demonstrate 4/5 shoulder horizontal abd strength to improve ADLs and posture. Patient's Goal: Patient goals : Improve mobility and strength to return to normal ADLs Timed Code Treatment Minutes: 10 Minutes Total Treatment Time: 45 Time In: 1105 Time Out: 1150 Benitez Bobo, PATRICK/Directly Supervised By: Quynh Worthington, PT 05/29/2020 documented in this encounter* Quynh Worthington, PT - 06/05/2020 10:30 AM EST [facility] Outpatient Physical Therapy Daily Note Date: 06/05/2020 Patient Name: Tony Starks : 1945 (74 y.o.) Referring Practitioner: Dr. Pretty Dawson Referral Date : 05/23/20 Diagnosis: R shoulder scope, LHB debridment, SAD, RCR Treatment Diagnosis: R shoulder pain s/p RTC sx Onset Date: 05/09/20 PT Insurance Information: [facility] Total # of Visits Approved: 18 Per Physician Order Total # of Visits to Date: 4 Pre-Treatment Pain: 07/13 Assessment Assessment: Pain 07/13 ight shld. Main c/o difficulty sleeping due to pain. Completed therex and manual therapy per Doc Flow. PROM R shld flexion 133, ER 60 at 45 degrees abd. Chart Reviewed: Yes Plan Plan: Continue with current plan Exercises/Modalities/Manual: See DocFlow Sheet Education: Barriers to Learning: none Goals (Total # of Visits to Date: 4) Short Term Goals - Time Frame for Short term goals: 9 visits Short term goal 1: Pt to show compliance and indepenedence with HEP for shoulder flexiblity / ROM Short term goal 2: Pt to demonstrate PROM R shld 70 deg shoulder ER to improve with dressing. Short term goal 3: Patient to have increase PROM R shld flexion 145 degrees Outside Sales Representative Insurance Goals - Time Frame for jail goals : 18 visits long term care phlebotomist goal 1: Pt to have improved functional activitities with UEFS score >50/80 long term care phlebotomist goal 2: Pt to demonstrate 135deg AROM shoulder flexion to improve ability to reach into cupboards long term care phlebotomist goal 3: Pt to demonstrate 4/5 shoulder horizontal abd strength to improve ADLs and posture. Post Treatment Pain: 05/15 Time In: 10:30 Time Out : 11:00 Timed Code Treatment Minutes: 30 Minutes Total Treatment Time: 30 Minutes Quynh Worthington, PT Date: 06/05/2020 documented in this encounter* Quynh Worthington, PT - 06/07/2020 11:15 AM EST [facility] Out[facility] Physical Therapy Daily Note Date: 06/07/2020 Patient Name: Tony Starks : 1945 (74 y.o.) Referring Practitioner: Dr. Pretty Dawson Referral Date : 05/23/20 Diagnosis: R shoulder scope, LHB debridment, SAD, RCR Treatment Diagnosis: R shoulder pain s/p RTC sx Onset Date: 05/09/20 PT Insurance Information: [facility] Total # of Visits Approved: 18 Per Physician Order Total # of Visits to Date: 5 Pre-Treatment Pain: 2/10 Assessment Assessment: Pain 2/10 right shld. Patient reports he got a hold of and has new pain med prescription which is helping him sleep, now he feels much better. He cpleted therex and manual therapy per Doc Flow. PROM R shld flexion 150, ER 70 and IR 55 at 45 degrees abd., Chart Reviewed: Yes Plan Plan: Continue with current plan Exercises/Modalities/Manual: See DocFlow Sheet Education: Barriers to Learning: none Goals (Total # of Visits to Date: 5) Short Term Goals - Time Frame for Short term goals: 9 visits Short term goal 1: Pt to show compliance and indepenedence with HEP for shoulder flexiblity / ROM-Met Short term goal 2: Pt to demonstrate PROM R shld 70 deg shoulder ER to improve with dressing.-Met Short term goal 3: Patient to have increase PROM R shld flexion 145 degrees-Met [facility] Goals - Time Frame for jail goals : 18 visits jail goal 1: Pt to have improved functional activitities with UEFS score >50/80 long term care phlebotomist goal 2: Pt to demonstrate 135deg AROM shoulder flexion to improve ability to reach into cupboards jail goal 3: Pt to demonstrate 4/5 shoulder horizontal abd strength to improve ADLs and posture. Post Treatment Pain: 05/15 Time In: 11:15 Time Out : 11:45 Timed Code Treatment Minutes: 30 Minutes Total Treatment Time: 30 Minutes Quynh Worthington, PT Date: 06/07/2020 documented in this encounter* Nathalie Burnham - 06/10/2020 10:30 AM EST Images from the original note were not included. [facility] Outpatient Physical Therapy Daily Note Date: 06/10/2020 Patient Name: Tony Starks : 1945 (74 y.o.) Referring Practitioner: Dr. Pretty Dawson Referral Date : 05/23/20 Diagnosis: R shoulder scope, LHB debridment, SAD, RCR Treatment Diagnosis: R shoulder pain s/p RTC sx Onset Date: 05/09/20 PT Insurance Information: [facility] Total # of Visits Approved: 18 Per Physician Order Total # of Visits to Date: 6 No Show: 0 Canceled Appointment: 0 Pre-Treatment Pain: 2/10 Assessment Assessment: Pt reports he is having low pain 2/10. He notes improving motion with ex's. Performed ex's as outlined for shoulder mobility. PROM to 158 deg flexion and ER at 90 deg abd to 55 deg. Good kenrick to session. Chart Reviewed: Yes Plan Plan: Continue with current plan Exercises/Modalities/Manual: See DocFlow Sheet Barriers to Learning: none Goals (Total # of Visits to Date: 6) Short Term Goals - Time Frame for Short term goals: 9 visits Short term goal 1: Pt to show compliance and indepenedence with HEP for shoulder flexiblity / ROM-Met Short term goal 2: Pt to demonstrate PROM R shld 70 deg shoulder ER to improve with dressing.-Met Short term goal 3: Patient to have increase PROM R shld flexion 145 degrees-Met [facility] Goals - Time Frame for jail goals : 18 visits long term care phlebotomist goal 1: Pt to have improved functional activitities with UEFS score >50/80 long term care phlebotomist goal 2: Pt to demonstrate 135deg AROM shoulder flexion to improve ability to reach into cupboards long term care phlebotomist goal 3: Pt to demonstrate 4/5 shoulder horizontal abd strength to improve ADLs and posture. Post Treatment Pain: 05/15 Time In: 1030 Time Out : 1105 Timed Code Treatment Minutes: 35 Minutes Total Treatment Time: 35 Minutes Nathalie Burnham FAREBOX REPAIRER Date: 06/10/2020 documented in this encounter* Nathalie Burnham - 06/14/2020 11:15 AM EST Images from the original note were not included. [facility] Outpatient Physical Therapy Daily Note Date: 06/14/2020 Patient Name: Tony Starks : 1945 (74 y.o.) Referring Practitioner: Dr. Pretty Dawson Referral Date : 05/23/20 Diagnosis: R shoulder scope, LHB debridment, SAD, RCR Treatment Diagnosis: R shoulder pain s/p RTC sx Onset Date: 05/09/20 PT Insurance Information: [facility] Total # of Visits Approved: 18 Per Physician Order Total # of Visits to Date: 8 No Show: 0 Canceled Appointment: 0 Pre-Treatment Pain: 0/10 Assessment Assessment: Pt reports he was able to comb his hair this morning. Performed ex for shoulder mobility and scapular strengthening. PROM to 65 deg ER at 90 deg abd. Plan to progress AROM end of next week. Chart Reviewed: Yes Plan Plan: Continue with current plan Exercises/Modalities/Manual: See DocFlow Sheet Barriers to Learning: none Goals (Total # of Visits to Date: 8) Short Term Goals - Time Frame for Short term goals: 9 visits Short term goal 1: Pt to show compliance and indepenedence with HEP for shoulder flexiblity / ROM-Met Short term goal 2: Pt to demonstrate PROM R shld 70 deg shoulder ER to improve with dressing.-Met Short term goal 3: Patient to have increase PROM R shld flexion 145 degrees-Met Outside Sales Representative Insurance Goals - Time Frame for long term care phlebotomist goals : 18 visits long term care phlebotomist goal 1: Pt to have improved functional activitities with UEFS score >50/80 long term care phlebotomist goal 2: Pt to demonstrate 135deg AROM shoulder flexion to improve ability to reach into cupboards jail goal 3: Pt to demonstrate 4/5 shoulder horizontal abd strength to improve ADLs and posture. Post Treatment Pain: 0/10 Time In: 1115 Time Out : 1155 Timed Code Treatment Minutes: 40 Minutes Total Treatment Time: 40 Minutes Nathalie Burnham FAREBOX REPAIRER Date: 06/14/2020 documented in this encounter* Quynh Worthington, PT - 06/19/2020 1:45 PM EDT Images from the original note were not included. [facility] Outpatient Physical Therapy Daily Note Date: 06/19/2020 Patient Name: Tony Starks : 1945 (74 y.o.) Referring Practitioner: Dr. Pretty Dawson Referral Date : 05/23/20 Diagnosis: R shoulder scope, LHB debridment, SAD, RCR Treatment Diagnosis: R shoulder pain s/p RTC sx Onset Date: 05/09/20 PT Insurance Information: [facility] Total # of Visits Approved: 18 Per Physician Order Total # of Visits to Date: 10 Pre-Treatment Pain: 2/10 Assessment Assessment: Pain 2/10 R shld/arm. Completed therex and manual therapy per Doc Flow. PROM R shld ER 80 degrees. AROM R shld flexion 150 degrees. Plan to progress therex per protocal as 06/20/20 is 6 wks post op. Chart Reviewed: Yes Plan Plan: Continue with current plan Exercises/Modalities/Manual: See DocFlow Sheet Education: Barriers to Learning: none Goals (Total # of Visits to Date: 10) Short Term Goals - Time Frame for Short term goals: 9 visits Short term goal 1: Pt to show compliance and indepenedence with HEP for shoulder flexiblity / ROM-Met Short term goal 2: Pt to demonstrate PROM R shld 70 deg shoulder ER to improve with dressing.-Met Short term goal 3: Patient to have increase PROM R shld flexion 145 degrees-Met Outside Sales Representative Insurance Goals - Time Frame for jail goals : 18 visits jail goal 1: Pt to have improved functional activitities with UEFS score >50/80 jail goal 2: Pt to demonstrate 135deg AROM shoulder flexion to improve ability to reach into cupboards-Met long term care phlebotomist goal 3: Pt to demonstrate 4/5 shoulder horizontal abd strength to improve ADLs and posture. Post Treatment Pain: 05/15 Time In: 13:45 Time Out : 14:15 Timed Code Treatment Minutes: 30 Minutes Total Treatment Time: 30 Minutes Quynh Worthington, PT Date: 06/19/2020 documented in this encounter* Michaelwillian Alisia Parveen - 06/21/2020 11:15 AM EDT Images from the original note were not included. [facility] Outpatient Physical Therapy Daily Note Date: 06/21/2020 Patient Name: Tony Starks : 1945 (74 y.o.) Referring Practitioner: Dr. Pretty Dawson Referral Date : 05/23/20 Diagnosis: R shoulder scope, LHB debridment, SAD, RCR Treatment Diagnosis: R shoulder pain s/p RTC sx Onset Date: 05/09/20 PT Insurance Information: [facility] Total # of Visits Approved: 18 Per Physician Order Total # of Visits to Date: 11 Pre-Treatment Pain: 2/10 Assessment Assessment: Patient into department without sling. Rates pain as 2/10 prior to session. Progressed with exercises as stated above following physican's protocol. Patient tolerates new exercises well. Concluded with PROM and manual. Chart Reviewed: Yes Plan Plan: Continue with current plan Exercises/Modalities/Manual: See DocFlow Sheet Education: Barriers to Learning: none Goals (Total # of Visits to Date: 11) Short Term Goals - Time Frame for Short term goals: 9 visits Short term goal 1: Pt to show compliance and indepenedence with HEP for shoulder flexiblity / ROM-Met Short term goal 2: Pt to demonstrate PROM R shld 70 deg shoulder ER to improve with dressing.-Met Short term goal 3: Patient to have increase PROM R shld flexion 145 degrees-Met [facility] Goals - Time Frame for jail goals : 18 visits long term care phlebotomist goal 1: Pt to have improved functional activitities with UEFS score >50/80 long term care phlebotomist goal 2: Pt to demonstrate 135deg AROM shoulder flexion to improve ability to reach into cupboards-Met jail goal 3: Pt to demonstrate 4/5 shoulder horizontal abd strength to improve ADLs and posture. Post Treatment Pain: 04/14 Time In: 1115 Time Out : 1154 Timed Code Treatment Minutes: 39 Minutes Total Treatment Time: 39 Minutes Alisia Sapp PTA Date: 06/21/2020 documented in this encounter* Alisia Sapp - 06/24/2020 1:45 PM EDT Images from the original note were not included. [facility] Outpatient Physical Therapy Daily Note Date: 06/24/2020 Patient Name: Tony Starks : 1945 (75 y.o.) Referring Practitioner: Dr. Pretty Dawson Referral Date : 05/23/20 Diagnosis: R shoulder scope, LHB debridment, SAD, RCR Treatment Diagnosis: R shoulder pain s/p RTC sx Onset Date: 05/09/20 PT Insurance Information: [facility] Total # of Visits Approved: 18 Per Physician Order Total # of Visits to Date: 12 Pre-Treatment Pain: 2/10 Assessment Assessment: Patient rates pain prior to session as 2/10. States he was a little sore following progression of exercises last session. Continued with exercises today followed by PROM to R shoulder. R shoulder horizontal ABD strength 3+/5. Patient to Dr. Dawson on 06/27/20. Chart Reviewed: Yes Plan Plan: Continue with current plan Exercises/Modalities/Manual: See DocFlow Sheet Education: Barriers to Learning: none Goals (Total # of Visits to Date: 12) Short Term Goals - Time Frame for Short term goals: 9 visits Short term goal 1: Pt to show compliance and indepenedence with HEP for shoulder flexiblity / ROM-Met Short term goal 2: Pt to demonstrate PROM R shld 70 deg shoulder ER to improve with dressing.-Met Short term goal 3: Patient to have increase PROM R shld flexion 145 degrees-Met [facility] Goals - Time Frame for jail goals : 18 visits long term care phlebotomist goal 1: Pt to have improved functional activitities with UEFS score >50/80 jail goal 2: Pt to demonstrate 135deg AROM shoulder flexion to improve ability to reach into cupboards-Met jail goal 3: Pt to demonstrate 4/5 shoulder horizontal abd strength to improve ADLs and posture. Post Treatment Pain: 1-2 Time In: 1341 Time Out : 1422 Timed Code Treatment Minutes: 43 Minutes Total Treatment Time: 43 Minutes Alisia Sapp,FAREBOX REPAIRER Date: 06/24/2020 documented in this encounter* Quynh Worthington, PT - 06/26/2020 11:15 AM EDT Images from the original note were not included. [facility] Out[facility] Physical Therapy Progress Report Date: 06/26/2020 Patient: Tony Starks : 1945 Referring Practitioner: Dr. Pretty Dawson Referral Date : 05/23/20 Diagnosis: R shoulder scope, LHB debridment, SAD, RCR Treatment Diagnosis: R shoulder pain s/p RTC sx Onset Date: 05/09/20 PT Insurance Information: [facility] Total # of Visits Approved: 18 Per Physician Order Total # of Visits to Date: 13 No Show: 0 Canceled Appointment: 0 Assessment Pt is progressing well. He has PROM ER 72 deg, IR 40 deg, flexion 160 deg and abduction 155 deg. AROM R shld flexion to 150 deg overhead. Pt reports low pain 2/10. Pt's current POC expires end of next week. Plan to progress with gentle strengthening. Prognosis: Good Plan Plan: Continue with current plan Goals Short term goals Time Frame for Short term goals: 9 visits Short term goal 1: Pt to show compliance and indepenedence with HEP for shoulder flexiblity / ROM-Met Short term goal 2: Pt to demonstrate PROM R shld 70 deg shoulder ER to improve with dressing.-Met Short term goal 3: Patient to have increase PROM R shld flexion 145 degrees-Met jail goals Time Frame for jail goals : 18 visits jail goal 1: Pt to have improved functional activitities with UEFS score >50/80 jail goal 2: Pt to demonstrate 135deg AROM shoulder flexion to improve ability to reach into cupboards-Met long term care phlebotomist goal 3: Pt to demonstrate 4/5 shoulder horizontal abd strength to improve ADLs and posture. Nathalie Burnham FAREBOX REPAIRER Date: 06/26/2020 * Nathalie Burnham - 06/26/2020 11:15 AM EDT Images from the original note were not included. [facility] Out[facility] Physical Therapy Daily Note Date: 06/26/2020 Patient Name: Tony Starks : 1945 (75 y.o.) Referring Practitioner: Dr. Pretty Dawson Referral Date : 05/23/20 Diagnosis: R shoulder scope, LHB debridment, SAD, RCR Treatment Diagnosis: R shoulder pain s/p RTC sx Onset Date: 05/09/20 PT Insurance Information: [facility] Total # of Visits Approved: 18 Per Physician Order Total # of Visits to Date: 13 No Show: 0 Canceled Appointment: 0 Pre-Treatment Pain: 05/15 Assessment Assessment: Pt reports soreness 05/15. He reports he grilled 30 steaks yesterday and did some flipping with his right arm. Pt with good progression of PROM . See update to Dr for objective measurements. See's Dr tomorrow. Chart Reviewed: Yes Plan Plan: Continue with current plan Exercises/Modalities/Manual: See DocFlow Sheet Barriers to Learning: none Goals (Total # of Visits to Date: 13) Short Term Goals - Time Frame for Short term goals: 9 visits Short term goal 1: Pt to show compliance and indepenedence with HEP for shoulder flexiblity / ROM-Met Short term goal 2: Pt to demonstrate PROM R shld 70 deg shoulder ER to improve with dressing.-Met Short term goal 3: Patient to have increase PROM R shld flexion 145 degrees-Met Outside Sales Representative Insurance Goals - Time Frame for long term care phlebotomist goals : 18 visits long term care phlebotomist goal 1: Pt to have improved functional activitities with UEFS score >50/80 jail goal 2: Pt to demonstrate 135deg AROM shoulder flexion to improve ability to reach into cupboards-Met jail goal 3: Pt to demonstrate 4/5 shoulder horizontal abd strength to improve ADLs and posture. Post Treatment Pain: 05/15 Time In: 1112 Time Out : 1150 Timed Code Treatment Minutes: 38 Minutes Total Treatment Time: 38 Minutes Nathalie Burnham FAREBOX REPAIRER Date: 06/26/2020 documented in this encounter* Alisia Sapp - 07/01/2020 11:15 AM EDT Images from the original note were not included. [facility] Out[facility] Physical Therapy Daily Note Date: 07/01/2020 Patient Name: Tony Starks : 1945 (75 y.o.) Referring Practitioner: Dr. Pretty Dawson Referral Date : 05/23/20 Diagnosis: R shoulder scope, LHB debridment, SAD, RCR Treatment Diagnosis: R shoulder pain s/p RTC sx Onset Date: 05/09/20 PT Insurance Information: [facility] Total # of Visits Approved: 18 Per Physician Order Total # of Visits to Date: 15 No Show: 0 Canceled Appointment: 0 Pre-Treatment Pain: 0/10 Assessment Assessment: Reports minimal pain in his shoulder but does note pain in his right wrist. This pain began yesterday and is still experiencing it. Feels he may have slept on it wrong. Continued with exercises as outlined above. Isuued HEP of tband rows, ER/IR, and shoulder ext. along with green and peach tband. Chart Reviewed: Yes Plan Plan: Continue with current plan Exercises/Modalities/Manual: See DocFlow Sheet Education: Barriers to Learning: none Goals (Total # of Visits to Date: 15) Short Term Goals - Time Frame for Short term goals: 9 visits Short term goal 1: Pt to show compliance and indepenedence with HEP for shoulder flexiblity / ROM-Met Short term goal 2: Pt to demonstrate PROM R shld 70 deg shoulder ER to improve with dressing.-Met Short term goal 3: Patient to have increase PROM R shld flexion 145 degrees-Met Outside Sales Representative Insurance Goals - Time Frame for jail goals : 18 visits jail goal 1: Pt to have improved functional activitities with UEFS score >50/80 jail goal 2: Pt to demonstrate 135deg AROM shoulder flexion to improve ability to reach into cupboards-Met long term care phlebotomist goal 3: Pt to demonstrate 4/5 shoulder horizontal abd strength to improve ADLs and posture. Post Treatment Pain: 0/10 Time In: 1114 Time Out : 1153 Timed Code Treatment Minutes: 39 Minutes Total Treatment Time: 39 Minutes Alisia Sapp ,FAREBOX REPAIRER Date: 07/01/2020 documented in this encounter* Quynh Worthington, PT - 07/03/2020 11:15 AM EDT Images from the original note were not included. [facility] Out[facility] Physical Therapy Daily Note Date: 07/03/2020 Patient Name: Tony Starks : 1945 (75 y.o.) Referring Practitioner: Dr. Pretty Dawson Referral Date : 05/23/20 Diagnosis: R shoulder scope, LHB debridment, SAD, RCR Treatment Diagnosis: R shoulder pain s/p RTC sx Onset Date: 05/09/20 PT Insurance Information: [facility] Total # of Visits Approved: 18 Per Physician Order Total # of Visits to Date: 16 Pre-Treatment Pain: 05/15 Assessment Assessment: Patient c/o R wrist and hand pain stirred up; but R shld pain staying at /. Completed therex and manual therapy per Doc Flow. AROM R shld WFL all planes. Strength R shld horizontal abd4+/5. 2 visits remaining on POC, anticipate DC. Chart Reviewed: Yes Plan Plan: Continue with current plan Exercises/Modalities/Manual: See DocFlow Sheet Education: Barriers to Learning: none Goals (Total # of Visits to Date: 16) Short Term Goals - Time Frame for Short term goals: 9 visits Short term goal 1: Pt to show compliance and independence with HEP for shoulder flexiblity / ROM-Met Short term goal 2: Pt to demonstrate PROM R shld 70 deg shoulder ER to improve with dressing.-Met Short term goal 3: Patient to have increase PROM R shld flexion 145 degrees-Met Outside Sales Representative Insurance Goals - Time Frame for long term care phlebotomist goals : 18 visits long term care phlebotomist goal 1: Pt to have improved functional activitities with UEFS score >50/80 long term care phlebotomist goal 2: Pt to demonstrate 135deg AROM shoulder flexion to improve ability to reach into cupboards-Met long term care phlebotomist goal 3: Pt to demonstrate 4/5 shoulder horizontal abd strength to improve ADLs and posture.-Met Post Treatment Pain: 05/15 Time In: 11:15 Time Out : 11:55 Timed Code Treatment Minutes: 40 Minutes Total Treatment Time: 40 Minutes Quynh Worthington, PT Date: 07/03/2020 documented in this encounter* Alisia Sapp - 07/15/2020 11:15 AM EDT Images from the original note were not included. [facility] Outpatient Physical Therapy Daily Note Date: 07/15/2020 Patient Name: Tony Starks : 1945 (75 y.o.) Referring Practitioner: Dr. Pretty Dawson Referral Date : 05/23/20 Diagnosis: R shoulder scope, LHB debridment, SAD, RCR Treatment Diagnosis: R shoulder pain s/p RTC sx Onset Date: 05/09/20 PT Insurance Information: [facility] Total # of Visits Approved: 18 Per Physician Order Total # of Visits to Date: 18 No Show: 0 Canceled Appointment: 0 Pre-Treatment Pain: 0/10 Assessment Assessment: Primarly c/o pain in his R wrist. Pain in shoulder is 1/10. States he used it quite a bit yesterday. Completes exercises as stated above with good tolerance. Patient completes UEFS and scores 69/80. Current POC has not and will plan to discharge patient at this time. He will continue with current HEP. Chart Reviewed: Yes Plan Plan: Continue with current plan Exercises/Modalities/Manual: See DocFlow Sheet Education: Barriers to Learning: none Goals (Total # of Visits to Date: 18) Short Term Goals - Time Frame for Short term goals: 9 visits Short term goal 1: Pt to show compliance and independence with HEP for shoulder flexiblity / ROM-Met Short term goal 2: Pt to demonstrate PROM R shld 70 deg shoulder ER to improve with dressing.-Met Short term goal 3: Patient to have increase PROM R shld flexion 145 degrees-Met [facility] Goals - Time Frame for long term care phlebotomist goals : 18 visits jail goal 1: Pt to have improved functional activitities with UEFS score >50/80-MET jail goal 2: Pt to demonstrate 135deg AROM shoulder flexion to improve ability to reach into cupboards-Met jail goal 3: Pt to demonstrate 4/5 shoulder horizontal abd strength to improve ADLs and posture.-Met Post Treatment Pain: 0/10 Time In: 1115 Time Out : 1154 Timed Code Treatment Minutes: 39 Minutes Total Treatment Time: 39 Minutes Alisia Sapp,FAREBOX REPAIRER Date: 07/15/2020 documented in this encounter Reason for Referral Status Reason Specialty Diagnoses / Procedures Referre d By Contact Referred To Contact Closed Radiology Diagnoses Impingement syndrome of right shoulder Procedures MRI SHOULDER RIGHT WO CONTRAST Pretty Dawson, DO [address] [place] [address] [facility] [address] [place] [address] Specialty Diagnoses / Procedures Referred By Contac t Referred To Contact Cardiology Diagnoses Pre-op testing Procedures EKG 12 Lead Back, [place] [address] Referral ID Status Reason Start Date Expiration Date Visits Re quested Visits Authorized [id number] Open 04/20/2022 04/20/2023 1 1 Discharge Instructions * Instructions* Amanda Gillis, GERMAN - 05/09/2020 DISCHARGE INSTRUCTIONS: SHOULDER ARTHROTOMY MEDICATIONS You will be given a prescription for pain medication. This should be taken with food, as needed. This may cause stomach upset, dizziness, and possible constipation. Please notify the office if youhave any medication allergies to this type of medication or if any problems develop with the meditation. You may begin using Tylenol or [id number] Ibuprofen or Motrin for pain should you experience lesser pain. DRESSING CHANGES You should continue the daily dressing changes as instructed by nursing staff, with application of Betadine liquid and then a dry sterile dressing once or twice daily. Any increase in pain, temperature over 101 degrees, redness, or drainage should be reported to the office prior to your first office visit. PHYSICAL THERAPY You will have an appointment scheduled for outpatient physical therapy after the first doctor post-operative check. ACTIVITY You may continue to progress activity as comfortably tolerated with your opposite arm. You must wear either the cryo cuff or shoulder immobilizer at all times, but you may begin to use your elbow, wrist, and hand as directed in physical therapy. ANESTHESIA PRECAUTIONS You should not operate a vehicle, automobile, bicycle or motorcycle, machinery, or power tools;makeany important decisions or drink alcohol for 24 hours. It may be beneficial to have a responsible adult remain with your for your first 24 hours after surgery. You may be drowsy and light-headed. DRIVING Do not drive. PROBLEMS You should notify the office for any persistent or heavy bleeding, temperature above 101, redness, swelling, or drainage from the operative site, severe pain at the operative site, or the developmentof persistent vomiting. documented in this encounter Hospital Course * Quynh Worthington, PT - 07/15/2020 11:15 AM EDT Images from the original note were not included. [facility] Outpatient Physical Therapy Discharge Summary Patient: Tony Starks : 1945 Referring Practitioner: Dr. Pretty Dawson Diagnosis: R shoulder scope, LHB debridment, SAD, RCR Date Treatment Initiated: 05/29/20 Date of Last Treatment: 07/15/20 PT Visit Information Onset Date: 05/09/20 PT Insurance Information: [facility] Total # of Visits Approved: 18 Total # of Visits to Date: 18 No Show: 0 Canceled Appointment: 0 Frequency/Duration Days: 3 times per week Weeks: 6 weeks Treatment Received Patient Education/HEP, Therapeutic Exercise, Manual Therapy: Myofacial Release/Cupping and Manual Therapy: Mobilization/Manipulation Pain Level: 1 Assessment Assessment: Pain in shoulder is 1/10. AROM R shld WFL all planes. Strength R shld horizontal abd 4+/5. Patient completes UEFS and scores 69/80. He will continue with current HEP. Reason for Discharge Completion of Prescribed visits and Goals Met Comments: Thank you for this referral Quynh Worthington Date: 07/15/2020 documented in this encounter Summary Purpose Family History No Family History Records FoundNo Family History Records FoundNo Family History Records FoundNo Family History Records Found Additional Source Comments Reason for Visit (unrecogniz ed section and content) Status Reason Specialty Diagnoses / Procedures Referre d By Contact Referred To Contact Closed Radiology Diagnoses Impingement syndrome of right shoulder Procedures MRI SHOULDER RIGHT WO CONTRAST Pretty Dawson, DO [address] [place] [address] [facility] [address] [place] [address] Status Reason Specialty Diagnoses / Procedures Referre d By Contact Referred To Contact Diagnoses Unspecified rotator cuff tear or rupture of right shoulder, not specified as traumatic RIGHT SHOULDER ROTATOR CUFF TEAR....BICEP TENDONITIS Procedures CT SHLDR ARTHROSCOP,SURG,W/ROTAT CUFF REPR RIGHT SHOULDER ARTHROSCOPY PROBABLE ROTATOR CUFF REPAIR... LONG HEAD BICEPS TENODESIS Pretty Dawson, DO [address] [place] [address] [facility] Ordered Prescriptions (unrec ognized section and content) Prescription Sig Dispensed Refills Start Date End Da te docusate sodium (COLACE) 100 MG capsule Take 1 capsule by mouth 2 times daily 40 capsule 0 05/09/2020 oxyCODONE-acetaminophen (PERCOCET) 5-325 MG per tabletIndications:Rotato r cuff syndrome of right shoulder Take 1-2 tablets by mouth every 6 hours as needed for Pain for up to 3 days. 40 tablet 0 05/09/2020 05/12/2020 Care Teams (unrecognized sec tion and content) Mine Expert Relationship Specialty Start Date End Date Daniel Pop, [address] [place] [address] PCP - General Family Medicine 11/24/16 (unrecognized sect ion and content) No Status Records FoundNo Status Records FoundNo Status Records FoundNo Status Records Found INFORMATION SOURCE (unrecogn ized section and content) DATE CREATED AUTHOR 04/29/2022 [facility] DATE CREATED AUTHOR AUTHOR'S ORGANIZ ATION 02/03/2023 [facility] DATE CREATED AUTHOR AUTHOR'S ORGANIZ ATION 06/19/2023 Bella bustos DATE CREATED AUTHOR AUTHOR'S ORGANIZ ATION 09/06/2023 [facility] EPIC FOR RECORDS PERTAINING TO PATIENTS WHO ARE OR HAVE BEEN ENROLLED IN A CHEMICAL DEPENDENCY/SUBSTANCEABUSE PROGRAM, SOME INFORMATION MAY BE OMITTED. This clinical summary was aggregated from multiple sources. Caution should be exercised in using it in the provision of clinical care. This summary normalizes information from multiple sources, and as a consequence, information in this document may materially change the coding, format and clinical context of patient data. In addition, data may be omitted in some cases. CLINICAL DECISIONS SHOULD BE BASED ON THE PRIMARY CLINICAL RECORDS. [facility]. provides no warranty or guarantee of the accuracy or completeness of information in this document.
== END 2023-09-07 12:11 | disposition home or self-care (01) ==
LOC: PM 12:10
PROVIDERS: Visit Provider Anesthesiology Pain Medicine
DX: M25.512 Pain in left shoulder (principal); M75.102 Unspecified rotator cuff tear or rupture of left shoulder, not specified as traumatic
CPT/HCPCS: 64450

== ENCOUNTER 2024-02-08 13:39 | Outpatient (OUT) | payer MEDICARE, OTHER, SELFPAY ==
--- NOTE | 2024-02-08 | CONS_ITS ---
CONSULTATION DATE: 02/08/2024 TO: Colby Whitfield D.O. CHIEF COMPLAINT: Includes right buttock pain, right hip pain. HISTORY: He reports the pain as being 7/10 pain, sharp in character, increased with activities such as standing, walking and performing transitioning maneuvers. Feels most comfortable in the semi-recumbent position. He denies any change in bowel and bladder habits or sensory motor changes in the lower extremities. CURRENT MEDICATION: Includes ibuprofen 400 mg daily p.r.n., as well as tramadol 50 mg b.i.d, which he does not use daily. Despite the use of ibuprofen, activity modification and a continued home exercise program, he still reports having persistent pain, especially over the last 8-10 weeks. EXAM: Notable for patient having no clinical radiculopathy or myelopathy involving the lower extremities. Patient has dysesthesia and hyperesthesia overlying the distribution of the right superior gluteal nerve, significant myofascial spasm and myalgia of the right gluteus medius muscle, positive right sided FABERS sign, suggestive of right hip joint loaded pain and moderate pain with lumbar facet joint loading maneuvers, mainly on the right side. 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 RECOMMENDATIONS: I recommend a right hip x-ray, lumbosacral spine films, PA and lateral view. I have refilled his tramadol 50 mg daily p.r.n., not for daily use, 15 pills to last him at least one month?s time, and to proceed with a right superior gluteal nerve injection under fluoroscopic guidance. As part of providing excellent, safe, comprehensive care, the following was completed at our patient's visit: 1. A medication reconciliation and review to ensure accurate knowledge of current/active medications, including asking our patients to inform us about any [id number]-uajmzag medications or herbal remedies/nutritional supplements/alternative remedies. 2. A review to specifically ensure our patients have had annual screening for: elevated body mass index (BMI, see intake chart for exact total), tobacco use, screening for depression, and screening for unhealthy alcohol use. When screening is concerning, patients are provided with education and the specific recommendation to discuss the concerning health issue and treatment options with their primary care provider. LOC
--- OUTSIDE RECORDS SUMMARY | 2024-02-08 13:59 | XMS_ITS | CCD ---
Author Organization [facility] Care Team Providers Care Director Electronics Name Role Phone Daniel Pop Primary Care Provider [phone] KESHAWN, DR OTF Villatoro Consulting Unavailable JOO, [...] Unavailable JOO, DR ABNER Saini Consulting Unavailable JOO, DR ABNER Saini Admitting Unavailable KODINORA JOSE Consulting Unavailable JOO, DR ABNER Saini Attending Unavailable JESSE WOOD Consulting Unavailable MISC, DR VEGA Primary Care Unavailable JOO, DR ABNER Saini Admitting Unavailable JOO, DR ABNER Saini Attending Unavailable JOO, DR ABNER Saini Consulting Unavailable MISC, DR VEGA Primary Care Unavailable JOO, DR ABNER Saini Admitting Unavailable Alfredo HARRIS, Ponce Mackenzie Attending Unavailable DANIEL POP Primary Care Unavailable PREETHI SHAVER Referring Unavailable DANIEL POP Primary Care Unavailable LAYA PLATA Referring Unavailable DANIEL POP Primary Care Unavailable PREETHI SHAVER Referring Unavailable DANIEL POP Primary Care Unavailable PREETHI SHAVER Referring Unavailable Daniel Pop DO Primary Care Provider Jay TRACK SWEEPER, Laya L Unavailable Jay TRACK SWEEPER, Laya L Unavailable POCPRETTY WORKMAN Attending Unavailable NICOL SALGADO Attending Unavailable POCPRETTY WORKMAN Attending Unavailable POCPRETTY WORKMAN Referring Unavailable LAYA PLATA Attending Unavailable NICOL SALGADO Attending Unavailable LAYA PLATA Attending Unavailable NICOL SALGADO Attending Unavailable NICOL SALGADO Attending Unavailable LAYA PLATA Attending Unavailable Medications Current Medications Medication Drug Class(es) Dates Sig (Normalized) Sig (Original) acetaminophen 325 mg / oxyCODONE hydrochloride 5 mg oral tablet (2 sources) Opioid Agonist Start: 05-09-2020 End: 05-12-2020 take 1-2 tablets by mouth every six hours as needed for pain oxyCODONE-acetami nophen (PERCOCET) 5-325 MG per tablet Indications: Rotator cuff syndrome of right shoulder Take 1-2 tablets by mouth every 6 hours as needed for Pain for up to 3 days. 40 tablet 0 05/09/2020 05/12/2020 Active apple cider vinegar 600 mg oral capsule (9 sources) take 1 capsule by mouth every eight hours Apple Cider Vinegar 600 MG capsule Take 1 tablet by mouth every 8 (eight) hours. Active APPLE CIDER VINE GAR PO Take by mouth 0 Active ascorbic acid 500 mg oral capsule (8 sources) Vitamin C Ascorbic Acid (V itamin C) 500 MG capsule 1 (one) time each day at the same time. Active aspirin 81 mg delayed release oral tablet (20 sources) Platelet Aggregation Inhibitor, Nonsteroidal Anti-inflammatory Drug aspirin 81 MG EC tablet 1 (one) time each day at the same time. Active take 1 tablet by mouth once felisa y aspirin 81 MG tablet Take 81 mg by mouth daily. 0 Active atenolol 50 mg oral tablet (20 sources) beta-Adrenergic Kostas Start: 01-17-2024 take 1 tablet by mouth once daily atenolol (Tenormin) 50 MG tablet Indications: Primary hypertension (CMS/HCC) TAKE 1 TABLET BY MOUTH DAILY AT THE SAME TIME EACH DAY 90 tablet 1 01/17/2024 Active Start: 07-19-2023 End: 01-17-2024 take 1 tablet by mouth once daily atenolol (Tenormin) 50 MG tablet Indications: Primary hypertension (CMS/HCC) Take 1 tablet (50 mg) by mouth 1 (one) time each day at the same time 90 tablet 1 07/19/2023 01/17/2024 Discontinued take 1 tablet by liv once daily atenolol (TENORMIN) 50 MG tablet Take 50 mg by mouth daily. 0 Active atorvastatin 40 mg oral tablet (20 sources) HMG-CoA Reductase Inhibitor Start: 07-13-2023 End: 01-10-2024 take 1 tablet by mouth once daily atorvastatin (Lipitor) 40 MG tablet Indications: Mixed hyperlipidemia (CMS/HCC) Take 1 tablet (40 mg) by mouth Daily 90 tablet 3 01/10/2024 Active take 1 tablet by mouth once felisa y atorvastatin (LIPITOR) 40 MG tablet Take 40 mg by mouth daily. 0 Active Bexagliflozin (Brenzavvy) 20 MG tablet (2 sources) Start: 01-17-2024 take 1 tablet by mouth once daily Bexagliflozin (Brenzavvy) 20 MG tablet Indications: Type 2 diabetes mellitus with complication (CMS/HCC) Take 20 mg by mouth Daily 90 tablet 3 01/17/2024 Active calcium chloride 0.0014 meq/ml / potassium chloride 0.004 meq/ml / sodium chloride 0.103 meq/ml / sodium lactate 0.028 meq/ml injectable solution (1 source) Start: 05-09-2020 lactated ringers infusion CALCIUM-VITAMIN D PO (20 sources) CALCIUM-VITAMIN D PO Take by mouth 0 Active cholecalciferol 0.05 mg oral tablet (8 sources) Vitamin D cholecalciferol (Vitamin D-3) 50 MCG (1999 UT) tablet 1 (one) time each day at the same time. Active dapagliflozin 10 mg oral tablet (2 sources) Sodium-Glucose Cotransporter 2 Inhibitor Start: 01-17-2024 take 1 tablet by mouth once daily dapagliflozin (Farxiga) 10 MG Indications: Type 2 diabetes mellitus with complication (CMS/HCC) Take 1 tablet (10 mg) by mouth Daily 28 tablet 01/17/2024 Active docusate sodium 100 mg oral capsule (18 sources) Start: 05-09-2020 take 1 capsule by mouth twice daily docusate sodium (COLACE) 100 MG capsule Take 1 capsule by mouth 2 times daily 40 capsule 0 05/09/2020 Active famotidine 20 mg oral tablet (9 sources) Histamine-2 Receptor Antagonist Start: 06-21-2023 take 1 tablet by mouth in the morning famotidine (Pepcid) 20 MG tablet Indications: Chronic GERD Take 1 tablet (20 mg) by mouth in the morning and 1 tablet (20 mg) before bedtime. 180 tablet 3 06/21/2023 Active Start: 02-02-2022 famotidine (PE PCID) 20 MG tablet fluticasone propionate 0.05 mg/actuat metered dose nasal spray (9 sources) Corticosteroid Start: 12-09-2023 take 1 spray(s) nasal route once daily fluticasone (Flonase) 50 MCG/ACT nasal spray Indications: Environmental and seasonal allergies Administer 1 spray into each nostril Daily Shake gently. Before first use, prime pump. After use, clean tip and replace cap. 48 mL 3 12/09/2023 Active FLUTICASONE PROP IONATE, NASAL, NA by Nasal route 0 Active hydroCHLOROthiazide 25 mg oral tablet (20 sources) Thiazide Diuretic Start: 11-24-2023 take 1 tablet by mouth once daily in the morning hydroCHLOROthiazide (HYDRODiuril) 25 MG tablet Indications: Primary hypertension (CMS/HCC) TAKE 1 TABLET BY MOUTH EVERY MORNING 90 tablet 3 11/24/2023 Active take 1 tablet by mouth once felisa y hydrochlorothiazide (HYDRODIURIL) 25 MG tablet Take 25 mg by mouth daily 0 Active 3 ml insulin degludec 200 unt/ml pen injector (20 sources) Insulin Analog Start: 09-24-2023 inject 34 [IU] by subcutaneous injection in the morning, then inject 34 [IU] by subcutaneous injection at bedtime, then inject 34 [IU] by subcutaneous injection twice daily insulin degludec (Tresiba FlexTouch) 200 UNIT/ML injection Indications: Type 2 diabetes mellitus with other specified complication, unspecified whether technician terminal and repeater insulin use (CMS/HCC) Inject 34 Units under the skin in the morning and 34 Units before bedtime. INJECT 34 units twice daily. 12 mL 5 09/24/2023 Active Insulin Degludec (TRESIBA SC) Inject 60 Units into the skin nightly 0 Active lisinopril 20 mg oral tablet (20 sources) Angiotensin Converting Enzyme Inhibitor Start: 12-13-2023 take 1 tablet by mouth in the morning lisinopril 20 MG tablet Indications: Primary hypertension (CMS/HCC) Take 1 tablet (20 mg) by mouth in the morning and 1 tablet (20 mg) before bedtime. 180 tablet 1 12/13/2023 Active take 2 tablets by mouth twice da ori lisinopril (PRINIVIL;ZESTRIL) 10 MG tablet Take 20 mg by mouth 2 times daily 0 Active magnesium sulfate 0.0277 meq/ml / potassium sulfate 0.0374 meq/ml / sodium sulfate 0.257 meq/ml oral solution (1 source) Start: 04-20-2022 yrncnf-fpukzromq-fab sulfate (SUPREP BOWEL PREP KIT) 17.5-3.13-1.6 GM/177ML SOLN solution Use as directed. 1 each 0 04/20/2022 Active Melatonin (1 source) MELATONIN PO Eric e by mouth 0 Active melatonin 3 mg / vitamin b6 10 mg oral tablet (8 sources) take 1 tablet by mouth at bedtime as needed Melatonin 3-10 MG tablet 1 tablet at bedtime as needed Orally at bedtime Active 24 hr metFORMIN hydrochloride 1000 mg / SITagliptin 50 mg extended release oral tablet (1 source) Biguanide, Dipeptidyl Peptidase 4 Inhibitor Start: 03-31-2022 JANUMET XR 50-1000 MG TB24 per extended release tablet Multiple Vitamins-Minerals (Multivitamin Adults 50+) tablet (8 sources) Multiple Vitamins-Minerals (Multivitamin Adults 50+) tablet 1 (one) time each day at the same time. Active multivitamin (THERAGRAN) per tablet (20 sources) take 1 tablet by mouth once daily multivitamin (THERAGRAN) per tablet Take 1 tablet by mouth daily. 0 Active Nutritional Supplements (DHEA PO) (20 sources) Nutritional Supp lements (DHEA PO) Take by mouth 0 Active omeprazole 20 mg delayed release oral capsule (20 sources) Proton Pump Inhibitor Start: 12-13-2023 take 1 capsule by mouth once daily omeprazole (PriLOSEC) [address] capsule Indications: Chronic GERD Take 1 capsule (20 mg) by mouth 1 (one) time each day at the same time 90 capsule 3 12/13/2023 Active take 1 capsule by mouth once nik ly omeprazole (PRILOSEC) 20 MG capsule Take 20 mg by mouth daily. 0 Active 2 ml ondansetron 2 mg/ml injection (1 source) Serotonin-3 Receptor Antagonist Start: 05-09-2020 4 mg, Intravenous, EVERY 6 HOURS PRN, Nausea, Vomiting, Starting Reny 05/09/20 at 1438, Post-op oxyCODONE (1 source) Opioid Agonist Start: 05-09-2020 oxyCODONE (ROXICODONE) immediate release tablet 5 mg raNITIdine 150 mg oral capsule (20 sources) Histamine-2 Receptor Antagonist take 2 capsules by mouth once daily as needed ranitidine (ZANTAC) 150 MG capsule Take 300 mg by mouth daily as needed 0 Active SITagliptin 100 mg oral tablet (20 sources) Dipeptidyl Peptidase 4 Inhibitor Start: 09-17-2023 take 1 tablet by mouth once daily SITagliptin (Januvia) 100 MG tablet Indications: Type 2 diabetes mellitus with complication (CMS/HCC) Take 1 tablet (100 mg) by mouth Daily 90 tablet 3 09/17/2023 Active take 1 tablet by liv th once daily in the evening sitaGLIPtin (JANUVIA) 100 MG tablet Take 100 mg by mouth every evening. 0 Active 3 ml sodium chloride 9 mg/ml injection (4 sources) Start: 05-09-2020 10 mL, Intrave nous, EVERY 12 HOURS SCHEDULED (2 times per day), First dose on Reny 05/09/20 at 2100, Post-op Start: 05-09-2020 take 10 mL intravenous route o nce 10 mL, Intravenous, PRN, Line Care, Starting Reny 05/09/20 at 1438 After every IV line use Post-op Start: 05-09-2020 sodium chlorid e flush 0.9 % injection 10 mL vitamin b6 100 mg oral table t (9 sources) Pyridoxine HCl ( Vitamin B6) 100 MG tablet 1 (one) time each day at the same time. Active take 2 tablets by mouth once nik ly vitamin B-6 (PYRIDOXINE) 50 MG tablet Take 100 mg by mouth daily 0 Active Zinc (1 source) ZINC PO Take by mouth 0 Active zinc gluconate 30 mg oral ta blet (8 sources) zinc 30 MG table t 1 (one) time each day at the same time. Active Completed/Discontinued Medications Medication Drug Class(es) Dates [...] skin nightly 0 05/09/2020 Discontinued (LIST CLEANUP) loratadine 10 mg oral tablet (16 sources) Start: 03-02-2023 End: 01-17-2024 take 1 tablet by mouth once daily loratadine (Claritin) 10 MG tablet Indications: Environmental and seasonal allergies Take 1 tablet (10 mg) by mouth Daily 09/17/2023 01/17/2024 Discontinued (Therapy completed) LORATADINE PO Ta ke 10 mg by mouth 0 Active metFORMIN hydrochloride 500 mg oral tablet (18 sources) Biguanide End: 05-09-2020 take 2 tablets by mouth twice daily at mealtime metformin (GLUCOPHAGE) 500 MG tablet Take 1,000 mg by mouth 2 times daily (with meals). 0 05/09/2020 Discontinued (Therapy completed) Problems Active Problems Problem Classification Problem Date Documented Date Episodic/Chronic Chronic kidney disease (18 sources) Chronic kidney disease stage 3A ; Translations: [Stage 3a chronic kidney disease (HCC)] Onset: 10-19-2022 Resolved: 10-21-2022 10-19-2022 Chronic Diabetes mellitus with complications (2 sources) Hyperglycemia due to type 2 diabetes mellitus; Translations: [Type 2 diabetes mellitus with hyperglycemia] 01-17-2024 Chronic Diabetes mellitus without complication (20 sources) Type 2 diabetes mellitus; Translations: [Type 2 diabetes mellitus with unspecified complications] Onset: 11-09-2016 Resolved: 10-20-2022 11-09-2016 Chronic Disorders of lipid metabolism (20 sources) Hypercholesterolemia; Translations: [Pure hypercholesterolemia, unspecified] Onset: 11-09-2016 Resolved: 10-20-2022 11-09-2016 Chronic Esophageal disorders (20 sources) Gastroesophageal reflux disease without esophagitis; Translations: [Gastro-esophageal reflux disease without esophagitis] Onset: 11-09-2016 Resolved: 10-20-2022 11-09-2016 Chronic Essential hypertension (20 sources) Hypertensive disorder; Translations: [Essential (primary) hypertension] Onset: 11-09-2016 11-09-2016 Chronic Nutritional deficiencies (8 sources) Vitamin D deficiency; Translations: [Vitamin D deficiency, unspecified] Onset: 10-19-2022 10-19-2022 Chronic Other aftercare (1 source) technician terminal and repeater (current) use of insulin; Translations: [COMPLIANCE REVIEW SPECIALIST CURRENT USE OF INSULIN] Onset: 04-13-2022 Episodic [...] Onset: 04-13-2022 Chronic Other non-traumatic joint disorders (8 sources) Arthropathy of multiple joints; Translations: [Arthropathy, unspecified] Onset: 10-19-2022 10-19-2022 Chronic Other non-traumatic joint disorders (4 sources) Pain in left hip; Translations: [PAIN IN LEFT HIP] Onset: 03-19-2022 Episodic Other non-traumatic joint disorders (1 source) Arthritis of joint of right shoulder region; Translations: [Arthritis of right shoulder region] Other skin disorders (2 sources) Actinic keratosis; Translations: [Actinic keratosis] 01-10-2024 Episodic Other upper respiratory disease (8 sources) Allergic disposition; Translations: [Other allergic rhinitis] Onset: 10-19-2022 10-19-2022 Chronic Residual codes; unclassified (8 sources) Dependence on continuous positive airway pressure ventilation; Translations: [Dependence on other enabling machines and devices] Onset: 10-19-2022 10-19-2022 Chronic Residual codes; unclassified (8 sources) Obstructive sleep apnea syndrome; Translations: [Obstructive sleep apnea (adult) (pediatric)] Onset: 10-19-2022 10-19-2022 Chronic Spondylosis; intervertebral disc disorders; other back problems (20 sources) Sacroiliitis, not elsewhere classified; Translations: [Degeneration of lumbar intervertebral disc] Onset: 04-07-2022 Chronic Spondylosis; intervertebral disc disorders; other back problems (5 sources) Muscle spasm of back; Translations: [Sacrococcygeal disorders, not elsewhere classified] Onset: 04-13-2022 Episodic Unclassified (1 source) Patient encounter status; Translations: [Pre-op chest exam] Unclassified (1 source) LOW BACK PAIN, UNSPECIFIED; Translations: [LOW BACK PAIN, UNSPECIFIED] Onset: 04-13-2022 Past or Other Problems Problem Classification Problem Date Documented Da te Episodic/Chronic Biliary tract disease (20 sources) Biliary colic; Translations: [Calculus of bile duct without cholangitis or cholecystitis without obstruction] Onset: 4 Resolved: 3 11-17-2013 Episodic Cataract (8 sources) Bilateral age-related cataract; Translations: [Unspecified age-related cataract] Onset: 3 Resolved: 4 09-15-2023 Chronic Gastritis and duodenitis (8 sources) Duodenitis; Translations: [Duodenitis without bleeding] Onset: 3 Resolved: 3 10-21-2022 Episodic Osteoarthritis (17 sources) Primary osteoarthritis, left shoulder; Translations: [Arthritis of right acromioclavicular joint] Onset: 2 Resolved: 4 05-21-2023 Chronic Other connective tissue disease (10 sources) Right rotator cuff syndrome; Translations: [Unspecified rotator cuff tear or rupture of right shoulder, not specified as traumatic] Onset: 1 Resolved: 3 05-09-2020 Episodic Other connective tissue disease (1 source) Other shoulder lesions, left shoulder; Translations: [OTHER SHOULDER LESIONS LT SHOULDER] Onset: 2 Episodic Other connective tissue disease (8 sources) Nontraumatic rotator cuff tear; Translations: [Unspecified rotator cuff tear or rupture of right shoulder, not specified as traumatic] Onset: 3 Resolved: 4 09-15-2023 Episodic Other connective tissue disease (8 sources) Tear of right rotator cuff; Translations: [Unspecified rotator cuff tear or rupture of right shoulder, not specified as traumatic] Onset: 3 Resolved: 4 09-15-2023 Episodic Other gastrointestinal disorders (8 sources) Swallowing finding; Translations: [Dysphagia, unspecified] Onset: 3 Resolved: 4 09-15-2023 Episodic Other male genital disorders (8 sources) Male erectile dysfunction, unspecified; Translations: [Impotence of organic origin] Onset: 3 Resolved: 4 09-15-2023 Chronic Other nervous system disorders (8 sources) Carpal tunnel syndrome of left wrist; Translations: [Carpal tunnel syndrome, left upper limb] Onset: 3 Resolved: 3 01-19-2023 Chronic Other non-traumatic joint disorders (7 sources) Pain in left shoulder; Translations: [PAIN IN LEFT SHOULDER] Onset: 2 Episodic Other nutritional; endocrine; and metabolic disorders (8 sources) Hypomagnesemia; Translations: [Hypomagnesemia] Onset: 3 Resolved: 4 10-19-2022 Chronic Residual codes; unclassified (20 sources) Sleep apnea; Translations: [Sleep apnea, unspecified] Onset: 7 Resolved: 3 11-09-2016 Chronic Results Test Name Value Interpretation Reference Range Facility No Panel InformationOrdered By: Birgit Hernandez on 01-10-2024 [facility] XR CERVICAL SPINE (4-5 VIEWS )on 03-01-2023 [...] Noonan Jr., MD 03/01/23 Final result Normal [facility] XR SHOULDER LEFT (MIN 2 VIEW S)on 03-01-2023 XR SHOULDER LEFT (MIN 2 VIEWS) EXAM: XR SHOULDER LEFT (MIN 2 VIEWS) HISTORY: Left shoulder pain, unspecified chronicity COMPARISON: Ayesha, 07/16/2021. IMPRESSION: FINDINGS/IMPRESSION: 1. Skin marker placed lateral to the acromion without underlying abnormality. 2. Moderate degenerative change acromioclavicular joint, similar to previous. 3. Mild narrowing glenohumeral joint. 4. Negative for calcific bursitis or fracture. Interpreted by: Cuba Noonan Jr., MD Signed by: Cuba Noonan Jr., MD 03/01/23 Final result Normal [facility] EKG 12 Leadon 04-20-2022 Atrial Rate 60 BPM [employer] Work Phone: P [place] 40 degrees [employer] Work Phone: P-R Interval 198 ms [employer] Phone: Q-T Interval 396 ms [employer] Phone: QRS Duration 96 ms [employer] Work Phone: QTc Calculation (Bazett) 396 ms [employer] Work Phone: R [place] 60 degrees [employer] Work Phone: T [place] 17 degrees [employer] Phone: Ventricular Rate 60 BPM BON [email or web address] Phone: Normal sinus rhythm Minimal voltage criteria for LVH, may be normal variant ( Sokolow-Ash[place] ) Borderline ECG [facility] Brian Mckeon MD - 04/20/2022 Normal sinus rhythm Minimal voltage criteria for LVH, may be normal variant ( Sokolow-[place] ) Borderline ECG [employer] Work Phone: [employer] Work Phone: POINT OF CARE GLUCOSEon Glucose [Mass/Vol] 177 mg/dL Critically high 74-106 T [place] Comment on above: Performed By: #### P OCGLUC #### [facility] [address] [address] [address] Spencer Zabala COVID-19on 05-09-2020 SARS-CoV-2, Rapid Not Detected Not Detected [place], [place] Comment on above: Rapid NAAT: The [...] management decisions. Fact sheet for Healthcare Providers: https://www.fda.gov/media/791636/download Fact sheet for Patients: https://www.fda.gov/media/295817/download Methodology: Isothermal Nucleic Acid Amplification Source .THROAT [place], [place] Glucose, Whole Bloodon 05-09 Glucose [Mass/Vol] 83 mg/dL 65 - 99 mg/dL [place] Glucose [Mass/Vol] 99 mg/dL 65 - 99 mg/dL [place] Otheron 05-09-2020 SARS-CoV-2 [place], [place] Basic Metabolic Panelon 04-06 Anion gap [Moles/Vol] 9 mmol/L 9 - 17 mmol/L [place] Bun/Cre Ratio 20 [place], [place] Calcium [Mass/Vol] 10.6 mg/dL High 8.6 - 10. 4 mg/dL [place] Chloride [Moles/Vol] 99 mmol/L 98 - 10 7 mmol/L [place] CO2 [Moles/Vol] 26 mmol/L 20 - 31 mmol/L [place] Creatinine [Mass/Vol] 1.26 mg/dL High 0.7 - 1.2 mg/dL [place] GFR >60 >60 mL/min [place] GFR Non- 56 mL/min Low >60 [place] GFR/1.73 sq M predicted among non-blacks MDRD (S/P/Bld) [Vol rate/Area] [place], [place] Comment on above: Average GFR for 70 o r more years old: 75 mL/min/1.73sq m Chronic Kidney Disease: <60 mL/min/1.73sq m Kidney failure: <15 mL/min/1.73sq m eGFR calculated using average adult body mass. Additional eGFR calculator available at: http://www.[employer]/multiple_crcl_2012.htm GFR/1.73 sq M predicted among non-blacks MDRD (S/P/Bld) [Vol rate/Area] NOT REPORTED [place] Glucose [Mass/Vol] 155 mg/dL High 70 - 99 mg/dL [place] Interpretation and review of laboratory results Abnormal [place] Potassium [Moles/Vol] 4.5 mmol/L 3.7 - 5.3 mmol/L [place] Sodium [Moles/Vol] 134 mmol/L Low 135 - 144 mmol/L [place] Urea nitrogen [Mass/Vol] 25 mg/dL High 8 - 23 mg/dL [place] CBC Auto Differentialon 04-06 Basophils (Bld) [#/Vol] 0.00 10*3/uL [place] Basophils/100 WBC (Bld) 0 % 0 - 2 % [place] Differential Type YES [place] Eosinophils (Bld) [#/Vol] 0.20 10*3/uL [place] Eosinophils/100 WBC (Bld) 3 % 0 - 5 % [place] Erythrocyte distribution width (RBC) [Ratio] 14.2 % 12.1 - 15.2 % [place] Hematocrit (Bld) [Volume fraction] 43.0 % 41 - 53 % [place] Hemoglobin (Bld) [Mass/Vol] 14.6 g/dL 13.5 - 17.5 g/dL [place] Lymphocytes (Bld) [#/Vol] 1.70 10*3/uL [place] Lymphocytes/100 WBC (Bld) 23 % 13 - 44 % [place] MCH (RBC) [Entitic mass] 30.9 pg 26 - 34 pg [place] MCHC (RBC) [Mass/Vol] 33.9 g/dL 31 - 37 g/dL [place], [place] MCV (RBC) [Entitic vol] 91.1 fL 80 - 100 fL [place] Monocytes (Bld) [#/Vol] 0.70 10*3/uL [place] Monocytes/100 WBC (Bld) 9 % 5 - 9 % [place] Platelet mean volume (Bld) [Entitic vol] NOT REPORTED 6 - 12 fL [place] Platelets (Bld) [#/Vol] 237 10*3/uL [place] Platelets (Bld) [#/Vol] NOT REPORTED [place] RBC (Bld) [#/Vol] 4.73 10*6/uL 4.5 - 5.9 m/uL [place] RBC morphology finding Nom (Bld) NOT REPORTED [place] Segmented neutrophils/100 WBC (Bld) 65 % 39 - 75 % [place] Segs Absolute 4.90 [place] WBC (Bld) [#/Vol] NOT REPORTED per 100 WBC [place] WBC (Bld) [#/Vol] 7.6 10*3/uL [place] WBC Morphology NOT REPORTED [place], [place] Otheron 05-02-2020 Immature granulocytes (Bld) [#/Vol] NOT REPORTED [place] XR CHEST (2 VW)on 05-02-2020 Likely mild symmetri c emphysematous overinflation. No acute changes. [place] EXAM: XR CHEST (2 VW ) HISTORY: Reason for exam:->Pre-op for rt shoulder scope. COMPARISON: None. TECHNIQUE: 2 views chest. FINDINGS: Likely mild emphysematous overinflation. Heart size normal. Lungs clear. [place], M[facility] Incoming Radiant Results From [facility] - 05/02/2020 1:56 PM EST EXAM: XR CHEST (2 VW) HISTORY: Reason for exam:->Pre-op for rt shoulder scope. COMPARISON: None. TECHNIQUE: 2 views chest. FINDINGS: Likely mild emphysematous overinflation. Heart size normal. Lungs clear. IMPRESSION: Likely mild symmetric emphysematous overinflation. No acute changes. [place] MRI SHOULDER RIGHT WO [facility] [place] 04-24-2020 1. A 1.3 cm x 1 [...] osteophytes which narrow the supraspinatus outlet. Mild subacromial/subdeltoi d bursitis. 7. 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 I recommend continued clinical follow up to assess for stability. [place] CLINICAL HISTORY: Impingement syndrome of right [...] outlet. There is type II acromion. Mild subacromial/subdeltoi d bursitis. There is a 1.3 cm AP [...] glenohumeral joint, with small inferior marginal osteophytes. [facility]- [place], [place], pn Incoming Radiant Results From [facility] - 04/24/2020 12:20 PM EST CLINICAL HISTORY: [...] outlet. There is type II acromion. Mild subacromial/subdeltoi d bursitis. There is a 1.3 cm AP [...] osteophytes which narrow the supraspinatus outlet. Mild subacromial/subdeltoi d bursitis. 7. 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 I recommend continued clinical follow up to assess for stability. [facility]- [place], [place] XR SHOULDER RIGHT (MIN 2 VIE WS)on 02-23-2020 Moderate degenerativ e changes at the acromioclavicular joint with undersurface spurring measuring 7 mm, which could contribute to outlet impingement. [facility] [place] EXAM: XR SHOULDER RIGHT (MIN 2 VIEWS). HISTORY: M19.011. 74-year-old male, right shoulder pain, arthritis right shoulder region. COMPARISON: None. TECHNIQUE: 3 views right shoulder FINDINGS: Moderate osteoarthritic change acromioclavicular joint with undersurface spurring. Minimal degenerative narrowing at the glenohumeral joint. [facility] [employer] [facility] [place], Mhpn Incoming Radiant Results From [facility] - 02/23/2020 4:11 PM EST EXAM: XR [...] mm, which could contribute to outlet impingement. [facility] [employer] [facility] [place] Vital Signs Date Time Vital Sign Value Performing Clinician Facility 01-17-2024 10:30-0400 Body height 175.3 cm Laya Plata TRACK SWEEPER Work Phone: [facility] 01-17-2024 10:30-0400 Body mass index (BMI) [Ratio] 25.08 kg/m2 Laya Jayline TRACK SWEEPER Work Phone: [facility] 01-17-2024 10:30-0400 Body temperature 97.81 [degF] Laya Rine TRACK SWEEPER Work Phone: [facility] 01-17-2024 10:30-0400 Body weight 77.02 kg Laya Jayline TRACK SWEEPER Work Phone: [facility] 01-17-2024 10:30-0400 Diastolic blood pressure 78 mm[Hg] Laya Jayline TRACK SWEEPER Work Phone: [facility] 01-17-2024 10:30-0400 Heart rate 70 /min Laya Jayline TRACK SWEEPER Work Phone: [facility] 01-17-2024 10:30-0400 Respiratory rate 18 /min Laya Rine TRACK SWEEPER Work Phone: [facility] 01-17-2024 10:30-0400 SaO2% (BldA) [Mass fraction] 96 % Laya Rine TRACK SWEEPER Work Phone: [facility] 01-17-2024 10:30-0400 Systolic blood pressure 138 mm[Hg] Laya Rine TRACK SWEEPER Work Phone: [facility] 05-09-2020 15:35-0500 BP Diastolic 58 mm[Hg] [place], [place] 05-09-2020 15:35-0500 BP Systolic 113 mm[Hg] [place] 05-09-2020 15:35-0500 Pulse (Heart Rate) 60 /min [place] 05-09-2020 15:35-0500 Pulse Oximetry 96 % [place] 05-09-2020 15:35-0500 Respiratory Rate 18 /min [place] 05-09-2020 15:05-0500 Body Temperature 96.49 [degF] [place] 05-09-2020 10:31-0500 BMI (Body Mass Index) 26.09 kg/m2 [place] 05-09-2020 10:31-0500 Body weight 76.7 kg [place] 05-09-2020 10:31-0500 Height 171.5 cm [place] Encounters Encounter Date Encounter Type Care Provider Facility Start: 01-17-2024 End: 01-17-2024 Bamboo flowsheet Laya L Rine TRACK SWEEPER Work Phone: [facility] Start: 01-17-2024 End: 01-17-2024 Bamboo flowsheet Laya L Rine TRACK SWEEPER Work Phone: [facility] Start: 01-17-2024 End: 01-17-2024 Office outpatient visit 25 minutes Laya L Rine TRACK SWEEPER Work Phone: [facility] Comment on above: Type 2 diabetes carmen itus with complication (CMS/HCC) (Primary Dx); Stage 3a chronic kidney disease (HCC) (CMS/HCC); Type 2 diabetes mellitus with hyperglycemia (CMS/HCC); Mixed hyperlipidemia (CMS/HCC) Start: 01-17-2024 End: 01-17-2024 ambulatory LAYA L RINE Not Available Start: 01-16-2024 End: 01-17-2024 Refill Laya Plata TRACK SWEEPER Work Phone: [facility] Comment on above: Primary hypertension (CMS/HCC) Start: 01-10-2024 End: 01-10-2024 Bamboo flowsheet Nicol Salgado PA Work Phone: [facility] Start: 01-10-2024 End: 01-10-2024 Bamboo flowsheet Nicolirene Salgado PA Work Phone: [facility] Start: 01-10-2024 End: 01-10-2024 Telephone encounter Laya Plata TRACK SWEEPER Work Phone: [facility] Comment on above: refill atorvastatin Start: 01-10-2024 End: 01-10-2024 Patient encounter procedure Nicol Jermain HayesNaomi PA Work Phone: [facility] Comment on above: Actinic keratosis (P rimary Dx) Start: 01-10-2024 End: 01-10-2024 ambulatory NICOL L NAOMI Not Available Start: 11-30-2023 End: 11-30-2023 ambulatory NICOL L NAOMI Not Available Start: 09-17-2023 End: 09-17-2023 ambulatory LAYA L RINE Not Available Start: 09-06-2023 End: 09-06-2023 ambulatory NICOL L NAOMI Not Available Start: 06-15-2023 End: 06-18-2023 ambulatory [facility] Start: 05-21-2023 End: 05-21-2023 ambulatory LAYA L RINE Not Available Start: 04-12-2023 End: 04-12-2023 ambulatory NICOL SALGADO Not Available Start: 04-02-2023 End: 04-02-2023 ambulatory PRETTY Tierney POCOS Not Available Start: 03-05-2023 End: 03-05-2023 ambulatory PRETTY Tierney POCOS Not Available Start: 03-01-2023 End: 03-04-2023 ambulatory DANIEL POP [facility] Start: 02-01-2023 End: 02-02-2023 ambulatory Ponce Fuentes MD Facility:[facility] Start: 04-23-2022 End: 04-24-[address] DOCTOR [...] by physician Daniel Pop DO Work Phone: [facility] Start: 07-15-2020 End: 07-15-2020 Subsequent hospital visit [...] Subsequent hospital visit by physician Alisia Sapp [facility] Comment on above: Arrived Start: 06-19-2020 End: 06-19-2020 Subsequent hospital visit by physician Quynh [facility] Comment on above: Arrived Start: 06-14-2020 End: 06-14-2020 Subsequent hospital visit by physician Nathalie [facility] Comment on above: Arrived Start: 06-12-2020 End: 06-12-2020 Subsequent hospital visit by physician Nathalie Burnham [facility] Comment on above: Arrived Start: 06-10-2020 End: 06-10-2020 Subsequent hospital visit by physician Nathalie Burnham [facility] Comment on above: Arrived Start: 06-07-2020 End: 06-07-2020 Subsequent hospital visit by physician Quynh [facility]YOH[facility] Comment on above: Arrived Start: 06-05-2020 End: 06-05-2020 Subsequent hospital visit by physician Quynh [facility] Comment on above: Arrived Start: 05-29-2020 End: 05-29-2020 Subsequent hospital visit by physician Quynh Worthington [facility] Comment on above: Arrived Start: 05-09-2020 End: 05-09-2020 Subsequent hospital visit by physician Pretty Ames Work Phone: [facility] Comment on above: [...] End: 04-26-2020 [facility] Comment on above: Impingement syndrome of right shoulder Start: 04-17-2020 End: 04-17-2020 Subsequent hospital visit by physician Rosalino Singh [facility] Comment on above: Arrived Start: 04-15-2020 End: 04-15-2020 Subsequent hospital visit by physician Danay Can [facility] Comment on above: Arrived Start: 04-11-2020 End: 04-11-2020 Subsequent hospital visit by physician Danay Can [facility] Comment on above: Arrived Start: 04-09-2020 End: 04-09-2020 Subsequent hospital visit by physician Rosalino Singh [facility] Comment on above: Arrived Start: 04-03-2020 End: 04-03-2020 Subsequent hospital visit by physician Rosalino Singh [facility] Therapy Comment on above: Arrived Start: 04-01-2020 End: 04-01-2020 Subsequent hospital visit by physician Rosalino ARROYO [facility] Comment on above: Arrived Start: 03-27-2020 End: 03-27-2020 Subsequent hospital visit by physician Jessica Albarado Work Phone: [facility] Comment on above: Arrived Start: 03-26-2020 End: 03-26-2020 Subsequent hospital visit by physician Danay Can [facility] Comment on above: Arrived Start: 03-21-2020 End: 03-21-2020 Subsequent hospital visit by physician Rosalino Singh [facility] Physical Therapy Comment on above: Arrived Start: 03-19-2020 End: 03-19-2020 Subsequent hospital visit by physician Danay Can [facility] Comment on above: Arrived Start: 02-23-2020 End: 02-25-2020 Subsequent hospital visit by physician Anderson [facility] Comment on above: Arthritis of right s [place] region Start: 12-20-2018 End: 12-22-2018 [facility] Procedures Date Procedure Procedure Detail Performing Clinician Start: 01-10-2024 CRYOTHERAPY SKIN LESION Nicol TURPIN Work Phone: Start: 04-20-2022 Ecg routine ecg w/le ast 12 lds w/i&r Brian Mckeon MD Work Phone: Start: 05-09-2020 Gluc bld gluc mntr d ev cleared fda spec home use Pretty Ames Work Phone: Start: 05-09-2020 Gluc bld gluc mntr d ev cleared fda spec home use Pretty Ames Work Phone: Start: 05-09-2020 COVID-19 Pete Nigel regui Work Phone: Start: 05-02-2020 Radiologic exam ches t 2 views Pretty Ames Work Phone: Start: 05-02-2020 Basic metabolic pane l calcium total Pretty Ames Work Phone: Start: 05-02-2020 Blood count complete auto&auto difrntl wbc Pretty Ames Work Phone: Start: 04-24-2020 Mri any jt upper ext remity w/o contrast matrl Pretty Ames Work Phone: Start: 02-23-2020 Radex shoulder compl ete minimum 2 views Daniel Pop Work Phone: Plan of Treatment Date Care Activity Detail Author Start: 01-11-2025 Urine screening for protein Diabetes: Urine Protein Screening [facility] Start: 05-08-2024 End: 05-08-2024 Patient encounter procedure 05/08/2024 11:00 AM EST Of fice Visit [facility] [address] [place] [address] Laya Plata, TRACK SWEEPER [address] [place] [address] [facility] Start: 04-14-2024 End: 04-14-2024 Patient encounter procedure 04/14/2024 10:40 AM EST Of fice Visit [facility] [address] [place] [address] Nicol Salgado, PA [address] [place] [address] [facility] Start: 04-13-2024 Hemoglobin A1c measurement Diabetes: Hemoglobin A1C [facility] Start: 03-13-2024 Influenza vaccination Influenza Vaccine (#1) [facility] Comment on above: Postponed from 12/05/2023 (Patient Refus ed) Start: 01-17-2024 End: 01-17-2024 Patient encounter procedure [facility] Comment on above: Type 2 diabetes mellitus with complicati on (CMS/HCC) (Primary Dx); Stage 3a chronic kidney disease (HCC) ([facility]/HCC) Start: 01-10-2024 End: 01-10-2024 Patient encounter procedure 01/10/2024 10:30 AM EDT Of fice Visit [facility] [address] [place] [address] Nicol Salgado PA [address] [place] [address] Arrived [facility] Comment on above: Arrived Start: 12-16-2023 Hemoglobin A1c measurement Diabetes: Hemoglobin A1C [facility] Start: 12-11-2023 Glaucoma screening Diabetes: Retinopathy Screening [facility] Start: 12-05-2023 Influenza vaccination Influenza Vaccine (#1) [facility] Start: 08-12-2022 Urine screening for protein Diabetes: Urine Protein Screening [facility] Start: 05-04-2022 End: 05-04-2022 Admission to same day surgery center 05/04/2022 Surgery IP Unit Back, MD Brian [address] [place] [address] COLONOSCOPY [facility] Comment on [...] by physician 05/04/2022 Hospital Encounter IP Unit Mike, MD [address] [place] [address] [facility] Start: 05-02-2021 Creatinine measurement Creatinine monitoring [facility] Start: 05-02-2021 Potassium monitoring Potassium monitoring [facility], [place] Start: 08-13-2020 COVID-19 Vaccine (2 - Booster for Hermila series) COVID-19 Vaccine (2 - Booster for Hermila series) HENRI GROVER [facility] Start: 07-11-2020 End: 07-11-2020 Appointment [facility] [...] End: 06-24-2020 Appointment 06/24/2020 Appointment Physical Therapy Nathalie Burnham [facility] Start: 06-21-2020 End: 06-21-2020 Appointment [facility] Start: 06-19-2020 End: 06-19-2020 Appointment 06/19/2020 Appointment Physical Therapy Quynh Worthington, PT [facility] Start: 06-17-2020 End: 06-17-2020 Appointment 06/17/2020 Appointment Physical Therapy Nathalie Burnham [facility] Start: 06-14-2020 End: 06-14-2020 Appointment 06/14/2020 Appointment Physical Therapy Nathalie Burnham [facility] Start: 06-12-2020 End: 06-12-2020 Appointment 06/12/2020 Appointment Physical Therapy Nathalie Burnham [facility] Start: 06-10-2020 End: 06-10-2020 Appointment 06/10/2020 Appointment Physical Therapy Nathalie Burnham [facility] Start: 06-07-2020 End: 06-07-2020 Appointment 06/07/2020 Appointment Physical Therapy Quynh Worthington PT [facility] Start: 06-05-2020 End: 06-05-2020 Appointment 06/05/2020 Appointment Physical Therapy Quynh Worthington, PT [facility] Start: 06-03-2020 Hospital En[facility] Ro[facility] Start: 05-31-2020 Hospital Encounter 05/31/2020 [facility] Physical Alisia Rojas [facility] Start: 05-09-2020 End: 05-09-2020 Hospital Encounter [facility] Comment on above: RIGHT SHOULDER ARTHROSCOPY PROBABLE ROTA TOR CUFF REPAIR... LONG HEAD BICEPS TENODESIS Start: 04-17-2020 End: 04-17-2020 Appointment 04/17/2020 Appointment Physical Therapy Rosalino Singh PTA [facility] Start: 04-15-2020 End: 04-15-2020 Appointment 04/15/2020 Appointment Physical Therapy Danay Can, PT [facility] Start: 04-11-2020 End: 04-11-2020 Appointment 04/11/2020 Appointment Physical Therapy Danay Can, PT [facility] Start: 04-09-2020 End: 04-09-2020 Appointment 04/09/2020 Appointment Physical Therapy Rosalino Singh STEEL GR[employer] [facility] Start: 04-03-2020 End: 04-03-2020 Appointment 04/03/2020 Appointment Physical Therapy Rosalino Singh [employer] [facility] Start: 04-01-2020 End: 04-01-2020 Appointment 04/01/2020 Appointment Physical Therapy Rosalino Singh [employer] GR[employer] [facility] Start: 03-27-2020 End: 03-27-2020 Appointment 03/27/2020 Appointment Physical Therapy Jessica Albarado, PT [address] [place] [address] [phone] [facility] Start: 03-26-2020 End: 03-26-2020 Appointment 03/26/2020 Appointment Physical Therapy Danay Can, PT [facility] Start: 03-21-2020 End: 03-21-2020 Appointment 03/21/2020 Appointment Physical Therapy Rosalino Singh [employer] GR[employer]ER [facility] Start: 12-01-2019 Colon cancer screen colonoscopy Colon cancer screen colonoscopy [place], [place] Start: 12-04-2018 Influenza vaccination Flu vaccine (#1) [place] Start: 09-22-2018 Annual Wellness Visit (AWV) Annual Wellness Visit (AWV) [facility] Start: 03-02-2018 Pneumococcal 65+ years Vaccine (2 of 2 - PCV13) Pneumococcal 65+ years Vaccine (2 of 2 - PCV13) [place] Start: 06-22-1993 Shingles Vaccine (1 of 2) Shingles Vaccine (1 of 2) [facility] Start: 06-22-1962 DTaP/Tdap/Td vaccine (1 - Tdap) DTaP/Tdap/Td vaccine (1 - Tdap) [facility] Start: 06-22-1961 Hepatitis C screening Hepatitis C screen [facility] Start: 1959 COVID-19 Vaccine (1 of 2) COVID-19 Vaccine (1 of 2) [place], [place] Start: 1959 COVID-19 Vaccine (1) COVID-19 Vaccine (1) [facility] Work Phone: Start: 1955 Depression Screen Depression Screen [facility] Start: 06-22-1953 [object Object] Diabetic foot exam [place], [place] Start: 06-22-1953 A1C test (Diabetic or Prediabetic) A1C test (Diabetic or Prediabetic) [place] Start: 06-22-1953 Diabetic retinal exam Diabetic retinal exam [place] Start: 06-22-1953 Lipid panel [facility] Start: 06-22-1953 Lipid screen Lipid screen [place], [place] Start: 1943 AAA screen AAA screen [place] Start: 1943 Creatinine measurement Creatinine monitoring [place], [place] Start: 1943 Creatinine monitoring Creatinine monitoring [place] Start: 1943 Hepatitis C screening Hepatitis C screen [place], [place] Start: 1943 Potassium monitoring Potassium monitoring [place] Oxygen therapy [[facility]] Initiate Oxygen Therapy Protocol Respiratory Care Routine Daily until discontinued starting 05/09/2020 [place] Comment on above: Daily until discontinued starting 2020 End: 05-09-2020 POCT glucose POCT glucose Point of Care Testing Routine One Time for 1 Occurrences starting 05/09/2020 until 05/09/2020 [place] Comment on above: One Time for 1 Occurrences starting 07/2020 until 05/09/2020 Immunizations Immunization Date Immunization Notes Care Provider Fa [facility] 03-03-2022 Influenza, High-dose Seasonal, Quadrivalent, Preservative Free Nicol TURPIN Work Phone: [facility] 03-03-2022 influenza virus vacc ine, unspecified formulation Nicol TURPIN Work Phone: [facility] 01-01-2021 Influenza, High-dose Seasonal, Quadrivalent, Preservative Free Nicol TURPIN Work Phone: [facility] 02-22-2020 influenza, injectabl e, quadrivalent, preservative free Nicol Naomi PA Work Phone: [facility] 04-25-2019 Seasonal trivalent influenza vaccine, adjuvanted, preservative free Nicol Naomi PA Work Phone: [facility] 03-02-2018 influenza, high dose seasonal, preservative-free Nicol Naomi PA Work Phone: [facility] 03-02-2017 pneumococcal polysaccharide vaccine, 23 valent Nicol Naomi PA Work Phone: [facility] 01-07-2017 influenza, high dose seasonal, preservative-free Nicol Naomi PA Work Phone: [facility] 01-03-2016 influenza, injectabl e, quadrivalent, contains preservative Nicol Naomi PA Work Phone: [facility] 03-11-2015 influenza, injectabl e, quadrivalent, preservative free Nicol Naomi PA Work Phone: [facility] 03-11-2015 pneumococcal conjuga te vaccine, 13 valent Nicol Naomi PA Work Phone: [facility] Payers Date Payer Category Payer Medicare MEDICARE MEDICAR E PART A AND B xxxxxxxxxx 2016-Present [phone] [address] [address] [place] [address] xxxxxxxxxx [id number] 2016 Private Health Insurance HUMANA HUMANA MEDICARE SUPP xxxxxxxxx 2016-Present [address] [address] [place] [address] [id number] 2015 Private Health Insurance 2008 Medicare 1959 Medicare [id number] 1959 Private Health Insurance [id number] 1943 Unknown [id number] 2.16.840.1.594879.3.579.2 .593 1943 Unknown [id number] 2.16.840.1.512584.3.579.2 .593 1943 Unknown [id number] 2.16.840.1.182299.3.579.2 .593 1943 Unknown [id number] 2.16.840.1.758620.3.579.2 .593 1943 Unknown [id number] 2.16.840.1.699023.3.579.2 .593 1943 Unknown [id number] 2.16.840.1.417245.3.579.2 .196 1943 Unknown [id number] 2.16.840.1.871329.3.579.2 .174 1943 Unknown [id number] 2.16.840.1.620872.3.579.2 .174 1943 Unknown [id number] 2.16.840.1.294952.3.579.2 .174 1943 Unknown [id number] 2.16.840.1.816851.3.579.2 .174 1943 Unknown [id number] 2.16.840.1.641607.3.579.2 .1259 1943 Unknown [id number] 2.16.840.1.782619.3.579.2 .1259 1943 Unknown [id number] 2.16.840.1.807193.3.579.2 .1259 1943 Unknown [id number] 2.16.840.1.501699.3.579.2 .1259 1943 Unknown [id number] 2.16.840.1.898917.3.579.2 .1258 1943 Unknown [id number] 2.16.840.1.322809.3.579.2 .9 1943 Unknown [id number] 2.16.840.1.119804.3.579.2 .1258 1943 Unknown [id number] 2.16.840.1.685641.3.579.2 .1258 1943 Unknown [id number] 2.16.840.1.184418.3.579.2 .1258 1943 Unknown [id number] 2.16.840.1.830228.3.579.2 .1258 1943 Unknown [id number] 2.16.840.1.537503.3.579.2 .1259 Social History Date Type Detail Facility Start: 12-15-2016 End: 09-17-2023 Tobacco smoking status NHIS Former [place] Start: 02-06-1991 End: 11-30-2006 History of tobacco use Current [place] Start: 02-06-1991 End: 11-30-2006 History of tobacco use Cigarette Sm[place] End: 11-30-2006 History of tobacco use Pipe Smoker [place] Start: 12-15-2016 End: 04-20-2022 Tobacco use and exposure Former user [place], [place] History of tobacco use Snuff User [place] History of tobacco use Chews Tobacco [place] Start: 12-15-2016 End: 01-17-2024 Alcohol intake Current drinker of alcohol (finding) [place], [place] Start: 1945 Sex Assigned At Not on file [place], [place] Exposure to SARS-CoV -2 (event) Not sure [place] Start: 12-15-2016 End: 01-18-2023 Alcohol intake Yes [facility] Start: 05-09-2020 End: 01-18-2023 Alcohol intake [facility] Start: 04-20-2022 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 No [facility] Do you belong to any clubs or organizations such as caodaism groups, unions, [employer]ally [employer] or athletic groups, or school groups? Yes [facility] Are you now , , , , never or living with a partner? [facility] How often to you hav e a drink containing alcohol? Monthly or less [facility] How many standard dr inks containing alcohol do you have on a typical day? 1 or 2 [facility] How often do you hav e 6 or more drinks on 1 occasion? Never [facility] How hard is it for y ou to pay for the very basics like food, housing, medical care, and heating Not hard at all [facility] Do you feel stress - tense, restless, nervous, or anxious, or unable to sleep at night because your mind is troubled all the time - these days [OSQ] Not at all [facility] (I/We) worried wheth er (my/our) food would run out before (I/we) got money to buy more. Never true [facility] Start: 08-28-2022 Tobacco Comment Last smoked: m ore than 10 years ago [facility] Start: 05-20-2023 Alcohol Comment I drink a beer once a week, Caffeine intake: 1-2 cups per day coffee [facility] Medical Equipment Procedure Code Equipment Code Equipment Origin al Text Equipment Identifier Dates [employer] [id number] Mm Tiana Wiggins [id number] Start: 05-09-2020 [id number] Start: 04-20-2023 Clinical Notes 07-16-2021 to 01-17-2024 Laya Plata NP - 01/17/2024 10:30 AM EDTPatient InstructionsTelephone Encounter - Laya Plata NP - 01/10/2024 11:24 AM EDTTelephone Encounter - Laya Plata, TRACK SWEEPER - 01/10/2024 11:24 AM EDT Note Date & Type Note Facility 01-17-2024 History of Presen t illness Narrative Tony Starks is a 78 y.o. male presents with chief complaint of Follow-up (Wants to discuss blood sugars. Noticed since off Jardiance his blood sugars have been ranging 97-265) HPI: Here for recheck Overall he is doing really well He is retired, active, has been out cutting wood , tolerates that exertion well No cp or sob or cough Tolerates meds well He is frustrated that sglt 2 med costs over a 100 dollars per month, but admits did work well for him and he lost a little weight in addition No new concerns SUBJECTIVE: MEDICATIONS: Current Outpatient Medications Medication Instructions Apple Cider Vinegar 600 MG capsule 1 tablet, Every 8 hours Ascorbic Acid (Vitamin C) 500 MG capsule Every 24 hours aspirin 81 MG EC tablet Every 24 hours atenolol (Tenormin) 50 MG tablet TAKE 1 TABLET BY MOUTH DAILY AT THE SAME TIME EACH DAY atorvastatin (LIPITOR) 40 mg, Oral, Daily Bexagliflozin (BRENZAVVY) 20 mg, Oral, Daily cholecalciferol (Vitamin D-3) 50 MCG (1999) tablet Every 24 hours dapagliflozin (FARXIGA) 10 mg, Oral, Daily Easy Touch Lancets 30G/Twist misc USE TO TEST TWO TIMES DAILY DIRECTED famotidine (PEPCID) 20 mg, Oral, 2 times daily fluticasone (Flonase) 50 MCG/ACT nasal spray 1 spray, Each Nostril, Daily, Shake gently. Before first use, prime pump. After use, clean tip and replace cap. hydroCHLOROthiazide (HYDRODIURIL) 25 mg, Oral, Every morning [employer] [place] 32G X 4 MM misc Inject under the skin lisinopril 20 mg, Oral, 2 times daily loratadine (CLARITIN) 10 mg, Oral, Daily Melatonin 3-10 MG tablet 1 tablet at bedtime as needed Orally at bedtime Multiple Vitamins-Minerals (Multivitamin Adults 50+) tablet Every 24 hours omeprazole (PRILOSEC) 20 mg, Oral, Every 24 hours Pyridoxine HCl (Vitamin B6) 100 MG tablet Every 24 hours SITagliptin (JANUVIA) 100 mg, Oral, Daily Tresiba FlexTouch 34 Units, Subcutaneous, 2 times daily, INJECT 34 units twice daily zinc 30 MG tablet Every 24 hours ALLERGIES: No Known Allergies SURGICAL HISTORY: Past Surgical History: Procedure Laterality Date ANTERIOR CRUCIATE LIGAMENT REPAIR COLONOSCOPY 2010 KNEE SURGERY Arthroscopy knee AL REPAIR OF NASAL SEPTUM nasal septoplasty to correct a deviated nasal septum ROTATOR CUFF REPAIR SHOULDER ARTHROSCOPY 05/09/2020 Rt shoulder scope, LHB debridement, RCR/SAD- DAP THROAT SURGERY x 2- per Dr Rowland TONSILLECTOMY VASECTOMY FAMILY HISTORY: Family History Problem Relation Name Age of Onset Diabetes Mother Terra Starks Hypertension Mother Terra Starks Other (Other) Father Yuval Starks bladder cancer Cancer Father Yuval Starks No Known Problems Maternal Grandmother No Known Problems Maternal Grandfather No Known Problems Paternal Grandmother No Known Problems Paternal Grandfather Diabetes Sibling SOCIAL HISTORY: Social History Tobacco Use Smoking status: Former Current packs/day: 0.00 Average packs/day: 0.5 packs/day for 15.0 years (7.5 ttl pk-yrs) Types: Cigarettes Start date: 02/06/1991 Quit date: 02/06/2006 Years since quittin.9 Smokeless tobacco: Never Tobacco comments: Last smoked: more than 10 years ago Substance Use Topics Alcohol use: Yes Alcohol/week: 1.0 standard drink of alcohol Types: 1 Cans of beer per week Comment: I drink a beer once a week, Caffeine intake: 1-2 cups per day coffee Drug use: Never Depression: Not at risk (05/21/2023) PHQ-2 PHQ-2 Score: 0 REVIEW OF SYMPTOMS: Review of Systems Constitutional: Negative for appetite change and fatigue. Eyes: Negative for visual disturbance. Respiratory: Negative for cough. Cardiovascular: Negative for chest pain and palpitations. Gastrointestinal: Negative for abdominal pain. Genitourinary: Negative for difficulty urinating. Musculoskeletal: Positive for arthralgias. Neurological: Negative for dizziness. Psychiatric/Behavioral: Negative. Hematological: Negative for adenopathy. Endocrine: Negative for polydipsia. OBJECTIVE: Visit Vitals BP 138/78 (BP Location: Left arm, Patient Position: Sitting, BP Cuff Size: Adult) Pulse 70 Temp 97.8 F (Tympanic) Resp 18 Ht 5' 9 Wt 169 lb 12.8 oz SpO2 96% BMI 25.08 kg/m Smoking Status Former BSA 1.94 m Physical Exam Constitutional: Appearance: Normal appearance. HENT: Head: Normocephalic and atraumatic. Eyes: Pupils: Pupils are equal, round, and reactive to light. Cardiovascular: Rate and Rhythm: Normal rate and regular rhythm. Heart sounds: Normal heart sounds. Pulmonary: Effort: Pulmonary effort is normal. Breath sounds: Normal breath sounds. Musculoskeletal: General: Normal range of motion. Skin: General: Skin is warm and dry. Neurological: General: No focal deficit present. Mental Status: He is alert. Psychiatric: Mood and Affect: Mood normal. Comments: Alert and interactive Wt same Rev labs of 01-12-24 ASSESSMENT AND PLAN: Assessment/Plan Diagnoses and all orders for this visit: Type 2 diabetes mellitus with complication (CMS/HCC) Comments: 8% to 10.6% , we gave him farxiga 10mg #28 samples, sent to [facility] for brenzavvy (sglt 2) rec some protein w/ cold cereal in the am Orders: - dapagliflozin (Farxiga) 10 MG; Take 1 tablet (10 mg) by mouth Daily - Bexagliflozin (Brenzavvy) 20 MG tablet; Take 20 mg by mouth Daily Stage 3a chronic kidney disease (HCC) (CMS/HCC) Comments: push fluids, meds the same. we will add in sglt2 , brenzavvy daily. call if unable to obtain. aware he will need to keep up good/to improved water intake. Type 2 diabetes mellitus with hyperglycemia (CMS/HCC) Comments: wnl Mixed hyperlipidemia (CMS/HCC) Comments: hi fiber, plant based diet recommended. remain on the statin. Follow up for aic before recheck 3.5 mo . documented in this encounter [facility] 01-17-2024 Instructions Laya Plata NP - 01/17/2024 10:30 AM EDT Farxiga 10mg per day with samples for now Brenzavvy is the new medication, one daily from the [facility] pharmacy Call if any issues getting this Check aic again in 3 mo documented in this encounter [facility] 01-10-2024 Telephone encount er Note Sent as requested [facility] 01-10-2024 Miscellaneous Notes Formattin g of this note might be different from the original. Sent as requested Refill Atorvastatin 40mg --med loaded [facility] documented in this encounter [facility] 01-10-2024 Telephone encount er Note Refill Atorvastatin 40mg --med loaded [facility] 01-10-2024 History of Presen t illness Narrative Follow up Diagnosis: Actinic Keratosis Location: Left lower vermilion lip Last visit: 11/30/2023 Symptoms: denies symptoms Status: all gone Procedure performed: Cryotherapy Number of treatments to date: 2 Current treatment: Here today for re-evaluation, biopsy if not resolved. All pertinent medical history, medications, and allergies were reviewed. General Exam: alert, oriented to person, place, and time, normal affect, well appearing Unaccompanied A focused exam completed based on patient reported problems, see below: 1. Actinic keratosis Left Lower Vermilion Lip Residual erythematous scaly macule adjacent to the area previously treated. Cryotherapy performed today; see procedure note Diagnosis: Actinic keratosis Indication: Precancerous Location: see skin exam Consent: Verbal consent was obtained and risks were discussed, including, but not limited to risks of scarring, darker or peanut sorter pigmentary changes, recurrence, incomplete removal and infection. Method: Liquid nitrogen was used to treat the lesion(s) with two 5-10 second freeze-thaw cycles. Number of lesions treated: 1 Post-procedure instructions: Instructions were given verbally. The office will be contacted if the lesion fails to resolve despite treatment, or if a side effect develops such as abnormal crusting, scabbing, redness or tenderness Cryotherapy, skin lesion - Left Lower Vermilion Lip Next Visit: as scheduled documented in this encounter [facility] 04-23-2022 Note CONSULTATION CONSULTATION DATE: 04/23/2022 HISTORY [...] will contact the office as needed. [facility] 03-19-2022 Note CONSULTATION CONSULTATION DATE: 03/19/2022 HISTORY [...] followed up in the clinic thereafter. [facility] 07-22-2021 Note OPERATIVE NOTE OPERATION DATE:07/22/2021 PREOPERATIVE [...] Will be followed up in the office. [facility] Signed and Approved by: DR ABNER WASHINGTON . 07/29/2021 12:16:00 [facility] 07-16-2021 Note PROCEDURE: XR SHOULD ER LT [...] by: OTF LIAO Date: 2021-07-16 15:31 [facility] 07-16-2021 Note CONSULTATION PAIN MANAGEMENT CONSULTATION HISTORY [...] plan of care and all questions answered. [facility] Signed and Approved by: JESSE WOOD . 07/17/2021 16:20:00 [facility] Evaluation note Diagnosis Pre-op testing Preoperative examination, unspecified Screening for colon cancer Special screening for malignant neoplasms, colon documented in this encounter [facility] Phone: evaluation note* Diagnosis Actinic keratosis- Primary documented in this encounter [facility] HealthcareEvaluation note* Diagnosis Mixed hyperlipidemia (CMS/HCC) Mixed hyperlipidemia documented in this encounter [facility] HealthcareEvaluation note* Diagnosis Primary hypertension (CMS/HCC) Unspecified essential hypertension Type 2 diabetes mellitus with complication (CMS/HCC)- Primary Stage 3a chronic kidney disease (HCC) (CMS/HCC) documented in this encounter [facility] HealthcareEvaluation note* Diagnosis Type 2 diabetes mellitus with complication (CMS/HCC)- Primary Stage 3a chronic kidney disease (HCC) ([facility]/HCC) Type 2 diabetes mellitus with hyperglycemia ([facility]/HCC) Mixed hyperlipidemia ([facility]) Mixed hyperlipidemia documented in this encounter [facility] Assessments Diagnosis Arthritis of right shoulder region Unspecified arthropathy, shoulder region Diagnosis Impingement syndrome of right shoulder Other affections of shoulder region, not elsewhere classified Diagnosis Pre-op chest exam Pre-operative respiratory examination Diagnosis Rotator cuff syndrome of right shoulder- Primary Disorders of bursae and tendons in shoulder region, unspecified Advance Directives Documents on File Type Date Recorded Patient Mathematics Education Professor Expl anation ACP-Advance Directive ACP-Power of Operations Officer Latest Code Status on File Code Status Date Activated Date Inactivated Comments Full Code 11/30/2016 6:33 AM 11/30/2016 11:59 AM Documents on File Type Date Recorded Patient Mathematics Education Professor Expl anation ACP-Advance Directive ACP-Power of Operations Officer Latest Code Status on File Code Status [...] Documents on File Type Date Recorded Patient Mathematics Education Professor Expl anation Advance Directives and Living Will Power of Operations Officer Healthcare Agents on File Name Relationship Healthcare Agent [facility] calvin Dominguezcarolyn Starks Spouse Primary Decision Maker Documents on File Type Date Recorded Patient Mathematics Education Professor Expl anation Advance Directives and Livin g Will [id number] History of Present Illness * Danay Can, PT - 03/19/2020 8:30 AM EST [facility] Outpatient Physical Therapy Evaluation Date: 03/19/2020 Patient: Tony Starks : 1945 Referring Practitioner: Dr. Pretty Ames Referral Date : 03/14/20 Diagnosis: R shoulder IS, AC, OA Treatment Diagnosis: R shoulder pain Onset Date: 03/14/20 PT Insurance Information: [facility] Total # of Visits Approved: 18 Per Physician Order Total # of Visits to Date: 1 No Show: 0 Canceled Appointment: 0 Subjective Additional Pertinent Hx: Pt reports R shoulder was painful in the summer. Pt had an injection in November which lasted 3months, just recieved injection from Dr. Ames on 03/14/20. Pt reports this AM pain [...] 45deg of IR to improve dressing kenrick. skilled nursing goals Time Frame for skilled nursing goals : 15 visits(POC Exp 04/30/19) skilled nursing goal 1: Pt to score >51/80 on UEFS to improve ADL kenrick technician terminal and repeater goal 2: Pt to have ER of 55deg to improve upper body dressing. technician terminal and repeater goal 3: Pt to have 4/5 Horiz ABD strength to improve pt posture. skilled nursing goal 4: Pt to have 4/5 ER strength without pain to improve ADL kenrick. Patient's Goal: Patient goals : Relieve his shoulder pain so he can complete ADLs and hobbies Timed Code Treatment Minutes: 0 Minutes Total Treatment Time: 45 Time In: 0835 Time Out: 09 Danay Can, PT Date: 03/19/2020 documented in this encounter* Rosalino Singh, STEEL GRINDER - 03/21/2020 10:30 AM EST [facility] Outpatient Physical Therapy Daily Note Date: 03/21/2020 Patient Name: Tony Starks : 1945 (74 y.o.) Referring Practitioner: Dr. Pretty Ames Referral Date : 03/14/20 Diagnosis: R shoulder IS, AC, OA Treatment Diagnosis: R shoulder pain Onset Date: 03/14/20 PT Insurance Information: [facility] Total # of Visits Approved: 18 Per [...] 45deg of IR to improve dressing kenrick. Group Home Goals - Time Frame for skilled nursing goals : 15 visits(POC Exp 04/30/19) skilled nursing goal 1: Pt to score >51/80 on UEFS to improve ADL kenrick technician terminal and repeater goal 2: Pt to have ER of 55deg to improve upper body dressing. skilled nursing goal 3: Pt to have 4/5 Horiz ABD strength to improve pt posture. skilled nursing goal 4: Pt to have 4/5 ER strength without pain to improve ADL kenrick. Post Treatment Pain: 05/15 Time In: 1030 Time Out : 1110 Timed Code Treatment Minutes: 40 Minutes Total Treatment Time: 40 Minutes Rosalino Singh PTA Date: 03/21/2020 documented in this encounter* Danay Can, PT - 03/26/2020 10:15 AM EST [facility] Outpatient Physical Therapy Daily Note Date: 03/26/2020 Patient Name: Tony Starks : 1945 (74 y.o.) Referring Practitioner: Dr. Pretty Ames Referral Date : 03/14/20 Diagnosis: R shoulder IS, AC, OA Treatment Diagnosis: R shoulder pain Onset Date: 03/14/20 PT Insurance Information: [facility] Total # of Visits Approved: 18 Per [...] 45deg of IR to improve dressing kenrick. Bottling Supervisor Goals - Time Frame for technician terminal and repeater goals : 15 visits(POC Exp 04/30/19) skilled nursing goal 1: Pt to score >51/80 on UEFS to improve ADL kenrick technician terminal and repeater goal 2: Pt to have ER of 55deg to improve upper body dressing. skilled nursing goal 3: Pt to have 4/5 Horiz ABD strength to improve pt posture. skilled nursing goal 4: Pt to have 4/5 ER strength without pain to improve ADL kenrick. Post Treatment Pain: 04/14 Time In: 1019 Time Out: 1059 Timed Code Treatment Minutes: 40 Minutes Total Treatment Time: 40 Minutes Danay Can, PT Date: 03/26/2020 documented in this encounter* Jessica Albarado, PT - 03/27/2020 2:30 PM EST [facility] Outpatient Physical Therapy Daily Note Date: 03/27/2020 Patient Name: Tony Starks : 1945 (74 y.o.) Referring Practitioner: Dr. Pretty Ames Referral Date : 03/14/20 Diagnosis: R shoulder IS, AC, OA Treatment Diagnosis: R shoulder pain Onset Date: 03/14/20 PT Insurance Information: [facility] Total # of Visits Approved: 18 Per Physician Order Total # of Visits to Date: 4 No Show: 0 Canceled Appointment: 0 Plan of Care/Certification Expiration Date: 04/30/19 Pre-Treatment Pain: 2/10 Assessment Assessment: Patient reports pain 2/10. Good tolerance to exercise and able to [...] 45deg of IR to improve dressing kenrick. Group Home Goals - Time Frame for technician terminal and repeater goals : 15 visits(POC Exp 04/30/19) technician terminal and repeater goal 1: Pt to score >51/80 on UEFS to improve ADL ken[facility] skilled nursing goal 2: Pt to have ER of 55deg to improve upper body dressing. technician terminal and repeater goal 3: Pt to have 4/5 Horiz ABD strength to improve pt posture. skilled nursing goal 4: Pt to have 4/5 ER strength without pain to improve ADL kenrick. Post Treatment Pain: 05/15 Time In: 1440 Time Out : 1525 Timed Code Treatment Minutes: 40 Minutes Total Treatment Time: 40 Minutes JESSICA ALBARADO PT Date: 03/27/2020 documented in this encounter* Rosalino Singh, STEEL GRINDER - 04/09/2020 10:30 AM EST [facility] Outpatient Physical Therapy Daily Note Date: 04/09/2020 Patient Name: Tony Starks : 1945 (74 y.o.) Referring Practitioner: Dr. Pretty Ames Referral Date : 03/14/20 Diagnosis: R shoulder IS, AC, OA Treatment Diagnosis: R shoulder pain Onset Date: 03/14/20 PT Insurance Information: [facility] Total # of Visits Approved: 18 Per [...] IR to improve dressing kenrick. - [facility] Bottling Supervisor Goals - Time Frame for skilled nursing goals : 15 visits(POC Exp 04/30/19) technician terminal and repeater goal 1: Pt to score >51/80 on UEFS to improve ADL kenrick technician terminal and repeater goal 2: Pt to have ER of 55deg to improve upper body dressing. - MET technician terminal and repeater goal 3: Pt to have 4/5 Horiz ABD strength to improve pt posture. technician terminal and repeater goal 4: Pt to have 4/5 ER strength without pain to improve ADL kenrick. Post Treatment Pain: 2-06/12 Time In: 1030 Time Out : 1115 Timed Code Treatment Minutes: 45 Minutes Total Treatment Time: 45 Minutes Rosalino Singh PTA Date: 04/09/2020 documented in this encounter* Danay Can, PT - 04/11/2020 10:30 AM EST [facility] Outpatient Physical Therapy Daily Note Date: 04/11/2020 Patient Name: Tony Starks : 1945 (74 y.o.) Referring Practitioner: Dr. Pretty Ames Referral Date : 03/14/20 Diagnosis: R shoulder IS, AC, OA Treatment Diagnosis: R shoulder pain Onset Date: 03/14/20 PT Insurance Information: [facility] Total # of Visits Approved: 18 Per [...] reports he has an appointment with Dr. Ames for his shoulder on 04/18/20. Pt progressed [...] IR to improve dressing kenrick. - [facility] Goals - Time Frame for skilled nursing goals : 15 visits(POC Exp 04/30/19) skilled nursing goal 1: Pt to score >51/80 on UEFS to improve ADL kenrick skilled nursing goal 2: Pt to have ER of 55deg to improve upper body dressing. - MET skilled nursing goal 3: Pt to have 4/5 Horiz ABD strength to improve pt posture. skilled nursing goal 4: Pt to have 4/5 ER strength without pain to improve ADL kenrick. Post Treatment Pain: 2/10 Time In: 1030 Time Out : 1113 Timed Code Treatment Minutes: 43 Minutes Total Treatment Time: 43 Minutes Danay Cna, BRUCE Date: 04/11/2020 documented in this encounter* Benitez Bobo - 04/15/2020 10:30 AM EST [facility] Out[facility] Physical Therapy Progress Report Date: 04/15/2020 Patient: Tony Starks : 1945 Referring Practitioner: Dr. Pretty Ames Referral Date : 03/14/20 Diagnosis: R shoulder IS, AC, OA Treatment Diagnosis: R shoulder pain Onset Date: 03/14/20 PT Insurance Information: [facility] Total # of Visits Approved: 18 Per [...] IR to improve dressing kenrick. - MET skilled nursing goals Time Frame for skilled nursing goals : 15 visits(POC Exp 04/30/19) skilled nursing goal 1: Pt to score >51/80 on UEFS to improve ADL kenrick skilled nursing goal 2: Pt to have ER of 55deg to improve upper body dressing. - MET technician terminal and repeater goal 3: Pt to have 4/5 Horiz ABD strength to improve pt posture. skilled nursing goal 4: Pt to have 4/5 ER strength without pain to improve ADL kenrick. Benitez Bobo, PATRICKA/Directly Supervised By:Danay Can, PT Date: 04/15/2020 * Benitez Bobo - 04/15/2020 10:30 AM EST [facility] Outpatient Physical Therapy Daily Note Date: 04/15/2020 Patient Name: Tony Starks : 1945 (74 y.o.) Referring Practitioner: Dr. Pretty Ames Referral Date : 03/14/20 Diagnosis: R shoulder IS, AC, OA Treatment Diagnosis: R shoulder pain Onset Date: 03/14/20 PT Insurance Information: [facility] Total # of Visits Approved: 18 Per [...] IR to improve dressing kenrick. - MET Bottling Supervisor Goals - Time Frame for technician terminal and repeater goals : 15 visits(POC Exp 04/30/19) skilled nursing goal 1: Pt to score >51/80 on UEFS to improve ADL kenrick technician terminal and repeater goal 2: Pt to have ER of 55deg to improve upper body dressing. - MET skilled nursing goal 3: Pt to have 4/5 Horiz ABD strength to improve pt posture. technician terminal and repeater goal 4: Pt to have 4/5 ER strength without pain to improve ADL kenrick. Post Treatment Pain: 2-3 Time In: 1028 Time Out : 1117 Timed Code Treatment Minutes: 39 Minutes Total Treatment Time: 39 Minutes PATRICK Castellon /Directly Supervised byDanay Can, PT Date: 04/15/2020 [...] to clarify patient's dressing discharge instructions. Dr. Ames called and left a voicemail and a text message and [address] Kwaku Morales' nurse. Dr. Kwaku Morales' nurse does call back shprtly thereafter and informed that she will speak with Dr. Ames to clarify and will call Tony with dressing change instructions. IE * Janel Pierre RN - 05/09/2020 4:12 [...] EST Med rec in progress. Pt cora historian. documented in this encounter* Quynh Worthington, PT - 05/29/2020 11:00 AM EST [facility] Outpatient Physical Therapy Evaluation Date: 05/29/2020 Patient: Tony Starks : 1945 Referring Practitioner: Dr. Pretty Ames Referral Date : 05/23/20 Diagnosis: R shoulder scope, LHB debridment, SAD, RCR Treatment Diagnosis: R shoulder pain s/p RTC sx Onset Date: 05/09/20 PT Insurance Information: [facility] Total # of Visits Approved: 18 Per [...] increase PROM R shld flexion 145 degrees skilled nursing goals Time Frame for technician terminal and repeater goals : 18 visits skilled nursing goal 1: Pt to have improved functional activitities with UEFS score >50/80 technician terminal and repeater goal 2: Pt to demonstrate 135deg AROM shoulder flexion to improve ability to reach into cupboards technician terminal and repeater goal 3: Pt to demonstrate 4/5 shoulder [...] Worthington, PT - 06/05/2020 10:30 AM EST [facility] Out[facility] Physical Therapy Daily Note Date: 06/05/2020 Patient Name: Tony A Raudel : 1945 (74 y.o.) Referring Practitioner: Dr. Pretty Ames Referral Date : 05/23/20 Diagnosis: R shoulder scope, LHB debridment, SAD, RCR Treatment Diagnosis: R shoulder pain s/p RTC sx Onset Date: 05/09/20 PT Insurance Information: [facility] Total # of Visits Approved: 18 Per [...] increase PROM R shld flexion 145 degrees Group Home Goals - Time Frame for skilled nursing goals : 18 visits technician terminal and repeater goal 1: Pt to have improved functional activitities with UEFS score >50/80 skilled nursing goal 2: Pt to demonstrate 135deg AROM shoulder flexion to improve ability to reach into cupboards technician terminal and repeater goal 3: Pt to demonstrate 4/5 shoulder horizontal abd strength to improve ADLs and posture. Post Treatment Pain: 05/15 Time In: 10:30 Time Out : 11:00 Timed Code Treatment Minutes: 30 Minutes Total Treatment Time: 30 Minutes Quynh Worthington, PT Date: 06/05/2020 documented in this encounter* Quynh Worthington, PT - 06/07/2020 11:15 AM EST [facility] Outpatient Physical Therapy Daily Note Date: 06/07/2020 Patient Name: Tony Starks : 1945 (74 y.o.) Referring Practitioner: Dr. Pretty Ames Referral Date : 05/23/20 Diagnosis: R shoulder scope, LHB debridment, SAD, RCR Treatment Diagnosis: R shoulder pain s/p RTC sx Onset Date: 05/09/20 PT Insurance Information: [facility] Total # of Visits Approved: 18 Per Physician Order Total # of Visits to Date: 5 Pre-Treatment Pain: 05/15 Assessment Assessment: Pain 05/15 right shld. Patient reports he got a [...] increase PROM R shld flexion 145 degrees-[facility] Goals - Time Frame for technician terminal and repeater goals : 18 visits skilled nursing goal 1: Pt to have improved functional activitities with UEFS score >50/80 technician terminal and repeater goal 2: Pt to demonstrate 135deg AROM shoulder flexion to improve ability to reach into cupboards technician terminal and repeater goal 3: Pt to demonstrate 4/5 shoulder horizontal abd strength to improve ADLs and posture. Post Treatment Pain: 05/15 Time In: 11:15 Time Out : 11:45 Timed Code Treatment Minutes: 30 Minutes Total Treatment Time: 30 Minutes Quynh Worthington PT Date: 06/07/2020 documented in this encounter* Nathalie Burnham - 06/10/2020 10:30 AM EST Images from the original note were not included. [facility] Outpatient Physical Therapy Daily Note Date: 06/10/2020 Patient Name: Tony Starks : 1945 (74 y.o.) Referring Practitioner: Dr. Pretty Ames Referral Date : 05/23/20 Diagnosis: R shoulder scope, LHB debridment, SAD, RCR Treatment Diagnosis: R shoulder pain s/p RTC sx Onset Date: 05/09/20 PT Insurance Information: [facility] Total # of Visits Approved: 18 Per Physician Order Total # of Visits to Date: 6 No Show: 0 Canceled Appointment: 0 Pre-Treatment Pain: 05/15 Assessment Assessment: Pt reports he is having low pain 05/15. He notes improving motion with ex's. Performed [...] increase PROM R shld flexion 145 degrees-[facility] Goals - Time Frame for skilled nursing goals : 18 visits skilled nursing goal 1: Pt to have improved functional activitities with UEFS score >50/80 skilled nursing goal 2: Pt to demonstrate 135deg AROM shoulder flexion to improve ability to reach into cupboards technician terminal and repeater goal 3: Pt to demonstrate 4/5 shoulder horizontal abd strength to improve ADLs and posture. Post Treatment Pain: 05/15 Time In: 1030 Time Out : 1105 Timed Code Treatment Minutes: 35 Minutes Total Treatment Time: 35 Minutes Nathalie Burnham STEEL GRINDER Date: 06/10/2020 documented in this encounter* Nathalie Burnham - 06/14/2020 11:15 AM EST Images from the original note were not included. [place] [facility] [facility] Daily Note Date: 06/14/2020 Patient Name: Tony Starks : 1945 (74 y.o.) Referring Practitioner: Dr. Pretty Ames Referral Date : 05/23/20 Diagnosis: R shoulder scope, LHB debridment, SAD, RCR Treatment Diagnosis: R shoulder pain s/p RTC sx Onset Date: 05/09/20 PT Insurance Information: [facility] Total # of Visits Approved: 18 Per [...] increase PROM R shld flexion 145 degrees-[facility] Goals - Time Frame for skilled nursing goals : 18 visits skilled nursing goal 1: Pt to have improved functional activitities with UEFS score >50/80 skilled nursing goal 2: Pt to demonstrate 135deg AROM shoulder flexion to improve ability to reach into cupboards skilled nursing goal 3: Pt to demonstrate 4/5 shoulder horizontal abd strength to improve ADLs and posture. Post Treatment Pain: 0/10 Time In: 1115 Time Out : 1155 Timed Code Treatment Minutes: 40 Minutes Total Treatment Time: 40 Minutes Nathalie Burnham STEEL GRINDER Date: 06/14/2020 documented in this encounter* Quynh Worthington, PT - 06/19/2020 1:45 PM EDT Images from the original note were not included. [facility] Therapy Daily Note Date: 06/19/2020 Patient Name: Tony Starks : 1945 (74 y.o.) Referring Practitioner: Dr. Pretty Ames Referral Date : 05/23/20 Diagnosis: R shoulder scope, LHB debridment, SAD, RCR Treatment Diagnosis: R shoulder pain s/p RTC sx Onset Date: 05/09/20 PT Insurance Information: [facility] Total # of Visits Approved: 18 Per Physician Order Total # of Visits to Date: 10 Pre-Treatment Pain: 05/15 Assessment Assessment: Pain 05/15 R shld/arm. Completed therex and manual therapy [...] increase PROM R shld flexion 145 degrees-Met Bottling Supervisor Goals - Time Frame for technician terminal and repeater goals : 18 visits technician terminal and repeater goal 1: Pt to have improved functional activitities with UEFS score >50/80 skilled nursing goal 2: Pt to demonstrate 135deg AROM shoulder flexion to improve ability to reach into cupboards-Met technician terminal and repeater goal 3: Pt to demonstrate 4/5 shoulder horizontal abd strength to improve ADLs and posture. Post Treatment Pain: 05/15 Time In: 13:45 Time Out : 14:15 Timed Code Treatment Minutes: 30 Minutes Total Treatment Time: 30 Minutes Quynh Worthington, PT Date: 06/19/2020 documented in this encounter* Alisia Sapp - 06/21/2020 11:15 AM EDT Images from the original note were not included. [facility] Daily Note Date: 06/21/2020 Patient Name: Tony Starks : 1945 (74 y.o.) Referring Practitioner: Dr. Pretty Ames Referral Date : 05/23/20 Diagnosis: R shoulder scope, LHB debridment, SAD, RCR Treatment Diagnosis: R shoulder pain s/p RTC sx Onset Date: 05/09/20 PT Insurance Information: [facility] Total # of Visits Approved: 18 Per [...] increase PROM R shld flexion 145 degrees-[employer] Bottling Supervisor Goals - Time Frame for technician terminal and repeater goals : 18 visits skilled nursing goal 1: Pt to have improved functional activitities with UEFS score >50/80 technician terminal and repeater goal 2: Pt to demonstrate 135deg AROM shoulder flexion to improve ability to reach into cupboards-Met skilled nursing goal 3: Pt to demonstrate 4/5 shoulder horizontal abd strength to improve ADLs and posture. Post Treatment Pain: 1/10 Time In: 1115 Time Out : 1154 Timed Code Treatment Minutes: 39 Minutes Total Treatment Time: 39 Minutes Alisia Sapp,STEEL GRINDER Date: 06/21/2020 documented in this encounter* Alisia Sapp - 06/24/2020 1:45 PM EDT Images from the original note were not included. [facility] Daily Note Date: 06/24/2020 Patient Name: Tony Starks : 1945 (75 y.o.) Referring Practitioner: Dr. Pretty Ames Referral Date : 05/23/20 Diagnosis: R shoulder scope, LHB debridment, SAD, RCR Treatment Diagnosis: R shoulder pain s/p RTC sx Onset Date: 05/09/20 PT Insurance Information: [facility] Total # of Visits Approved: 18 Per Physician Order Total # of Visits to Date: 12 Pre-Treatment Pain: 2/10 Assessment Assessment: Patient rates pain prior to session as 2/10. States he was a little sore following progression of exercises last session. Continued with exercises today followed by PROM to R shoulder. R shoulder horizontal ABD strength 3+/5. Patient to Dr. Ames on 06/27/20. Chart Reviewed: Yes Plan Plan: [...] increase PROM R shld flexion 145 degrees-[employer] Bottling Supervisor Goals - Time Frame for skilled nursing goals : 18 visits technician terminal and repeater goal 1: Pt to have improved functional activitities with UEFS score >50/80 skilled nursing goal 2: Pt to demonstrate 135deg AROM shoulder flexion to improve ability to reach into cupboards-Met technician terminal and repeater goal 3: Pt to demonstrate 4/5 shoulder horizontal abd strength to improve ADLs and posture. Post Treatment Pain: 1-2 Time In: 1341 Time Out : 1422 Timed Code Treatment Minutes: 43 Minutes Total Treatment Time: 43 Minutes Alisia aSppSTEEL GRINDER Date: 06/24/2020 documented in this encounter* Quynh Worthington, PT - 06/26/2020 11:15 AM EDT Images from the original note were not included. [facility] Progress Report Date: 06/26/2020 Patient: Tony Starks : 1945 Referring Practitioner: Dr. Pretty Ames Referral Date : 05/23/20 Diagnosis: R shoulder scope, LHB debridment, SAD, RCR Treatment Diagnosis: R shoulder pain s/p RTC sx Onset Date: 05/09/20 PT Insurance Information: [facility] Total # of Visits Approved: 18 Per [...] increase PROM R shld flexion 145 degrees-Met technician terminal and repeater goals Time Frame for skilled nursing goals : 18 visits skilled nursing goal 1: Pt to have improved functional activitities with UEFS score >50/80 skilled nursing goal 2: Pt to demonstrate 135deg AROM shoulder flexion to improve ability to reach into cupboards-Met skilled nursing goal 3: Pt to demonstrate 4/5 shoulder horizontal abd strength to improve ADLs and posture. Nathalie Aureliano Chacha STEEL GRINDER Date: 06/26/2020 * Nathalie Burnham - 06/26/2020 11:15 AM EDT Images from the original note were not included. [facility] Daily Note Date: 06/26/2020 Patient Name: Tony Starks : 1945 (75 y.o.) Referring Practitioner: Dr. Pretty Ames Referral Date : 05/23/20 Diagnosis: R shoulder scope, LHB debridment, SAD, RCR Treatment Diagnosis: R shoulder pain s/p RTC sx Onset Date: 05/09/20 PT Insurance Information: [facility] Total # of Visits Approved: 18 Per Physician Order Total # of Visits to Date: 13 No Show: 0 Canceled Appointment: 0 Pre-Treatment Pain: 2/10 Assessment Assessment: Pt reports soreness 2/10. He reports he grilled 30 steaks yesterday and did some flipping with his right arm. Pt with good progression of PROM . See update to for objective measurements. See's Dr tomorrow. Chart [...] increase PROM R shld flexion 145 degrees-Met Bottling Supervisor Goals - Time Frame for technician terminal and repeater goals : 18 visits technician terminal and repeater goal 1: Pt to have improved functional activitities with UEFS score >50/80 skilled nursing goal 2: Pt to demonstrate 135deg AROM shoulder flexion to improve ability to reach into cupboards-Met skilled nursing goal 3: Pt to demonstrate 4/5 shoulder horizontal abd strength to improve ADLs and posture. Post Treatment Pain: 210 Time In: 1112 Time Out : 1150 Timed Code Treatment Minutes: 38 Minutes Total Treatment Time: 38 Minutes Nathalie Burnham STEEL GRINDER Date: 06/26/2020 documented in this encounter* MichaelAlisia dorsey S - 07/01/2020 11:15 AM EDT Images from the original note were not included. [facility] Daily Note Date: 07/01/2020 Patient Name: Tony Starks : 1945 (75 y.o.) Referring Practitioner: Dr. Pretty Ames Referral Date : 05/23/20 Diagnosis: R shoulder scope, LHB debridment, SAD, RCR Treatment Diagnosis: R shoulder pain s/p RTC sx Onset Date: 05/09/20 PT Insurance Information: [facility] Total # of Visits Approved: 18 Per [...] increase PROM R shld flexion 145 degrees-Met Bottling Supervisor Goals - Time Frame for technician terminal and repeater goals : 18 visits skilled nursing goal 1: Pt to have improved functional activitities with UEFS score >50/80 technician terminal and repeater goal 2: Pt to demonstrate 135deg AROM shoulder flexion to improve ability to reach into cupboards-Met skilled nursing goal 3: Pt to demonstrate 4/5 shoulder horizontal abd strength to improve ADLs and posture. Post Treatment Pain: 0/10 Time In: 1114 Time Out : 1153 Timed Code Treatment Minutes: 39 Minutes Total Treatment Time: 39 Minutes Alisia Sapp ,STEEL GRINDER Date: 07/01/2020 documented in this encounter* Quynh Worthington, PT - 07/03/2020 11:15 AM EDT Images from the original note were not included. [facility] Daily Note Date: 07/03/2020 Patient Name: Tony Starks : 1945 (75 y.o.) Referring Practitioner: Dr. Pretty Ames Referral Date : 05/23/20 Diagnosis: R shoulder scope, LHB debridment, SAD, RCR Treatment Diagnosis: R shoulder pain s/p RTC sx Onset Date: 05/09/20 PT Insurance Information: [facility] Total # of Visits Approved: 18 Per Physician Order Total # of Visits to Date: 16 Pre-Treatment Pain: 2/10 Assessment Assessment: Patient c/o R wrist and hand pain stirred up; but R shld pain staying at 2/10. Completed therex and manual therapy per Doc [...] increase PROM R shld flexion 145 degrees-Met Bottling Supervisor Goals - Time Frame for technician terminal and repeater goals : 18 visits technician terminal and repeater goal 1: Pt to have improved functional activitities with UEFS score >50/80 technician terminal and repeater goal 2: Pt to demonstrate 135deg AROM shoulder flexion to improve ability to reach into cupboards-Met skilled nursing goal 3: Pt to demonstrate 4/5 shoulder horizontal abd strength to improve ADLs and posture.-Met Post Treatment Pain: 2 Time In: 11:15 Time Out : 11:55 Timed Code Treatment Minutes: 40 Minutes Total Treatment Time: 40 Minutes Quynh Worthington, PT Date: 07/03/2020 documented in this encounter* Alisia Sapp - 07/15/2020 11:15 AM EDT Images from the original note were not included. [facility] Daily Note Date: 07/15/2020 Patient Name: Tony Satrks : 1945 (75 y.o.) Referring Practitioner: Dr. Pretty Ames Referral Date : 05/23/20 Diagnosis: R shoulder scope, LHB debridment, SAD, RCR Treatment Diagnosis: R shoulder pain s/p RTC sx Onset Date: 05/09/20 PT Insurance Information: [facility] Total # of Visits Approved: 18 Per [...] increase PROM R shld flexion 145 degrees-[facility] Goals - Time Frame for skilled nursing goals : 18 visits skilled nursing goal 1: Pt to have improved functional activitities with UEFS score >50/80-MET skilled nursing goal 2: Pt to demonstrate 135deg AROM shoulder flexion to improve ability to reach into cupboards-Met skilled nursing goal 3: Pt to demonstrate 4/5 shoulder horizontal abd strength to improve ADLs and posture.-Met Post Treatment Pain: 0/10 Time In: 1115 Time Out : 1154 Timed Code Treatment Minutes: 39 Minutes Total Treatment Time: 39 Minutes Alisia Sapp,STEEL GRINDER Date: 07/15/2020 documented in this encounter Reason for Referral Status Reason Specialty Diagnoses / Procedures Referre d By Contact Referred To Contact Closed Radiology Diagnoses Impingement syndrome of right shoulder Procedures MRI SHOULDER RIGHT WO CONTRAST Pretty Ames, DO [address] [place] [address] [facility] [address] [place] [address] Specialty Diagnoses / Procedures Referred By Contac t Referred To Contact Cardiology Diagnoses Pre-op testing Procedures EKG 12 Lead Back, MD Brian [address] [place] [id number] Referral ID Status Reason Start Date Expiration Date Visits Re quested Visits Authorized [id number] Open 04/20/2022 04/20/2023 1 1 Discharge Instructions * Instructions* Amanda Gillis RN - 05/09/2020 DISCHARGE INSTRUCTIONS: SHOULDER ARTHROTOMY MEDICATIONS You will be given a prescription for pain medication. This should be taken with food, as needed. This may cause stomach upset, dizziness, and possible constipation. Please notify the office if youhave any medication allergies to this type of medication or if any problems develop with the meditation. You may begin using Tylenol or [id number] Ibuprofen or Motrin for pain should you [...] from the original note were not included. [facility] Discharge Summary Patient: Tony Starks : 1945 Referring Practitioner: Dr. Pretty Ames Diagnosis: R shoulder scope, LHB debridment, SAD, RCR Date Treatment Initiated: 05/29/20 Date of Last Treatment: 07/15/20 PT Visit Information Onset Date: 05/09/20 PT Insurance Information: [facility] Total # of Visits Approved: 18 Total # of Visits to Date: 18 No Show: 0 Canceled Appointment: 0 Frequency/Duration Days: 3 times per week Weeks: 6 weeks Treatment Received Patient Education/HEP, Therapeutic Exercise, Manual Therapy: Myofacial Release/Cupping and Manual Therapy: Mobilization/Manipulation Pain Level: 1 Assessment Assessment: Pain in shoulder is /10. AROM R shld WFL all planes. Strength [...] Procedures MRI SHOULDER RIGHT WO CONTRAST Pretty Ames DO [address] [place] [address] [facility] [address] [place] [address] Status Reason Specialty Diagnoses / Procedures Referre d By Contact Referred To Contact Diagnoses Unspecified rotator cuff tear or rupture of right shoulder, not specified as traumatic RIGHT SHOULDER ROTATOR CUFF TEAR....BICEP TENDONITIS Procedures AL SHLDR ARTHROSCOP,SURG,W/ROTAT CUFF REPR RIGHT SHOULDER ARTHROSCOPY PROBABLE ROTATOR CUFF REPAIR... LONG HEAD BICEPS TENODESIS Pretty Ames, DO [address] [place] [address] [facility] Reason Comments Follow-up Reason Onset Date Comments refill atorvastatin 01/10/2024 Reason Comments Med Refill Reason Comments Follow-up Wants to discuss blo od sugars. Noticed since off Jardiance his blood sugars have been ranging 97-265 Ordered Prescriptions (unrec ognized section and content) [...] Care Teams (unrecognized sec tion and content) Director Electronics Relationship Specialty Start Date End Date Daniel Pop DO [address] [place] [id number] PCP - General Family Medicine 11/24/16 Director Electronics Relationship Specialty Start Date End Date Daniel Pop DO [address] [place] [address] PCP - General Family Medicine 10/14/22 Laya Plata, TRACK SWEEPER [address] [place] [address] PCP - ACO Reach 01/04/24 Laya Plata, TRACK SWEEPER [address] [place] [address] Nurse Practitioner Family Medicine 10/14/22 Director Electronics Relationship Specialty Start Date End Date Daniel Pop DO [address] [place] [address] PCP - General Family Medicine 10/14/22 Laya Plata, TRACK SWEEPER [address] [place] [address] PCP - ACO Reach 01/04/24 Laya Plata, TRACK SWEEPER [address] [place] [address] Nurse Practitioner Family Medicine 10/14/22 Director Electronics Relationship Specialty Start Date End Date Daniel Pop DO [address] [place] [address] PCP - General Family Medicine 10/14/22 Laya Plata, TRACK SWEEPER [address] [place] [address] PCP - ACO Reach 01/04/24 Laya Plata, TRACK SWEEPER [address] [place], [place] [id number] Nurse Practitioner Family Medicine 10/14/22 Director Electronics Relationship Specialty Start Date End Date Daniel Pop DO [address] [place] [address] PCP - General Family Medicine 10/14/22 Laya Plata, TRACK SWEEPER [address] [place] [address] PCP - ACO Reach 01/04/24 Laya Plata, TRACK SWEEPER [address] [place] [address] Nurse Practitioner Family Medicine 10/14/22 Director Electronics Relationship Specialty Start Date End Date Daniel Pop DO [address] [place] [address] PCP - General Family Medicine 10/14/22 Laya Plata, TRACK SWEEPER [address] [place] [address] PCP - ACO Reach 01/04/24 Laya Plata, TRACK SWEEPER [address] [place] [address] Nurse Practitioner Family Medicine 10/14/22 (unrecognized sect ion and content) No Status Records FoundNo Status Records FoundNo Status Records FoundNo Status Records Found INFORMATION SOURCE (unrecogn ized section and content) DATE CREATED AUTHOR 04/29/2022 [facility] DATE CREATED AUTHOR AUTHOR'S ORGANIZ ATION 02/03/2023 [facility] DATE CREATED AUTHOR AUTHOR'S ORGANIZ ATION 06/19/2023 [facility] DATE CREATED AUTHOR AUTHOR'S ORGANIZ ATION 01/18/2024 [facility] FOR RECORDS PERTAINING TO PATIENTS WHO ARE [...] BE BASED ON THE PRIMARY CLINICAL RECORDS. [facility]. provides no warranty or guarantee of the accuracy or completeness of information in this document.
== END 2024-02-08 13:40 | disposition home or self-care (01) ==
LOC: PM 13:39
PROVIDERS: Visit Provider Anesthesiology Pain Medicine
DX: M47.816 Spondylosis without myelopathy or radiculopathy, lumbar region (principal); M25.551 Pain in right hip; M16.11 Unilateral primary osteoarthritis, right hip; G58.8 Other specified mononeuropathies; M79.10 Myalgia, unspecified site
CPT/HCPCS: 72100; 73502; G0463

== ENCOUNTER 2024-02-08 14:53 | Outpatient (OUT) | payer MEDICARE, OTHER, SELFPAY ==
--- NOTE | 2024-02-08 15:03 | XR_ITS ---
[address] [address] Patient Name: CHEPE DIAZ MRN: [id number] date: 1945 Sex: M Assigned Patient Location: [facility] Current Patient Location: Accession/Order Number: [id number] Exam Date: 02/08/2024 15:05 Report Date: 02/09/2024 09:09 At the request of: SILVANA LOREDO Procedure: XR hip RT min 2V PROCEDURE: XR hip RT min 2V COMPARISON: None. HISTORY: Right Hip Pain FINDINGS: BONES:No acute fracture or dislocation. Mild osteoarthropathy with marginal osteophyte formation SOFT TISSUES:Negative. No visible soft tissue swelling. EFFUSION:None visible. OTHER: Negative. XR/XR hip RT min 2V IMPRESSION: Mild osteoarthritis Electronically authenticated by: PRETTY MCINTOSH Date: 02/09/2024 09:09
--- NOTE | 2024-02-08 15:03 | XR_ITS ---
[facility] [place] [id number] Patient Name: CHEPE DIAZ MRN: [id number] date: 1945 Sex: M Assigned Patient Location: [facility] Current Patient Location: Accession/Order Number: [id number] Exam Date: 02/08/2024 15:05 Report Date: 02/09/2024 12:56 At the request of: SILVANA LOREDO Procedure: XR lumbar spine 2-3V EXAMINATION: XR lumbar spine 2-3V HISTORY: Lumbar Spondylosis, Right Hip Pain COMPARISON: No relevant comparison available. FINDINGS: BONES: Normal. No significant spondylosis, scoliosis, fracture, or visible bony lesion. DISC SPACES: Normal. No significant disc height narrowing, subluxation, or endplate abnormality. PARASPINOUS: Negative. No paraspinous abnormality is seen. OTHER: Vascular calcifications XR/XR lumbar spine 2-3V IMPRESSION: No acute abnormality Electronically authenticated by: PRETTY MCINTOSH Date: 02/09/2024 12:56
== END 2024-02-08 14:54 | disposition home or self-care (01) ==
LOC: RAD 14:55
PROVIDERS: Visit Provider Anesthesiology Pain Medicine
DX: M47.816 Spondylosis without myelopathy or radiculopathy, lumbar region (principal); M25.551 Pain in right hip; M16.11 Unilateral primary osteoarthritis, right hip
CPT/HCPCS: 72100; 73502

== ENCOUNTER 2024-02-22 08:51 | Day surgery (SDC) | payer MEDICARE, OTHER, SELFPAY ==
--- OUTSIDE RECORDS SUMMARY | 2024-02-22 09:17 | XMS_ITS | CCD ---
Author Organization [facility] Care Team Providers Care Health And Safety Specialist Name Role Phone Daniel Pop Primary Care [...] Unavailable Daniel Pop DO Primary Care Provider [phone] Jay HOTEL SERVICE SUPERVISOR, Laya L Unavailable Jay HOTEL SERVICE SUPERVISOR, Laya L Unavailable POCPRETTY WORKMAN Attending Unavailable [...] mellitus with other specified complication, unspecified whether group home insulin use (CMS/HCC) Inject 34 Units under [...] meq/ml oral solution (1 source) Start: 04-20-2022 dnokyw-cooxcmlgy-pjj sulfate (SUPREP BOWEL PREP KIT) 17.5-3.13-1.6 GM/177ML [...] 10-19-2022 10-19-2022 Chronic 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 XR CERVICAL SPINE (4-5 VIEWS )on 03-01-2023 [...] Noonan Jr., MD 03/01/23 Final result Normal [facility] XR SHOULDER LEFT (MIN 2 VIEW [...] Noonan Jr., MD 03/01/23 Final result Normal [facility] EKG 12 Leadon 04-20-2022 Atrial Rate 60 BPM [employer] Work Phone: P [place] 40 degrees [employer] Work Phone: P-R Interval 198 ms Mis [employer] Phone: Q-T Interval 396 ms [employer] Phone: QRS Duration 96 ms [employer] Work Phone: QTc Calculation (Bazett) 396 ms [employer] Work Phone: R [place] 60 degrees [employer] Work Phone: T [place] 17 degrees Mis [employer] Phone: Ventricular Rate 60 BPM [employer] Phone: Normal sinus rhythm Minimal voltage criteria for LVH, may be normal variant ( Sokolow-Ashby ) Borderline ECG [facility] Brian Mckeon MD - 04/20/2022 Normal sinus rhythm Minimal voltage criteria for LVH, may be normal variant ( Sokolow-Ashby ) Borderline ECG [employer] Work Phone: [employer] Work Phone: POINT OF CARE GLUCOSEon Glucose [Mass/Vol] 177 mg/dL Critically high 74-[address] [facility] Comment on above: Performed By: #### P OCGLUC #### [facility] [address] [address] [address] Spencer Zabala COVID-19on 05-09-2020 SARS-CoV-2, Rapid Not Detected Not Detected [place], [place] Comment on above: Rapid NAAT: The [...] management decisions. Fact sheet for Healthcare Providers: https://www.fda.gov/media/423362/download Fact sheet for Patients: https://www.fda.gov/media/806395/download Methodology: Isothermal Nucleic Acid Amplification Source .THROAT [place], [place] Glucose, Whole Bloodon 05-09 Glucose [Mass/Vol] 83 mg/dL 65 - 99 mg/dL [place] Glucose [Mass/Vol] 99 mg/dL 65 - 99 mg/dL [place] Otheron 05-09-2020 SARS-CoV-2 [place] Basic Metabolic Panelon 04-06 Anion gap [Moles/Vol] 9 mmol/L 9 - 17 mmol/L [place] Bun/Cre Ratio 20 [place] Calcium [Mass/Vol] 10.6 mg/dL High 8.6 - 10. 4 mg/dL [place] Chloride [Moles/Vol] 99 mmol/L 98 - 10 7 mmol/L [place] CO2 [Moles/Vol] 26 mmol/L 20 - 31 mmol/L [place] Creatinine [Mass/Vol] 1.26 mg/dL High 0.7 - 1.2 mg/dL [place] GFR >60 >60 mL/min [place] GFR Non- 56 mL/min Low >60 [place] GFR/1.73 sq M predicted among non-blacks MDRD (S/P/Bld) [Vol rate/Area] [place] Comment on above: Average GFR for 70 o r more years old: 75 mL/min/1.73sq m Chronic Kidney Disease: <60 mL/min/1.73sq m Kidney failure: <15 mL/min/1.73sq m eGFR calculated using average adult body mass. Additional eGFR calculator available at: http://www.Simfinit/multiple_crcl_2012.htm GFR/1.73 sq M predicted among non-blacks MDRD (S/P/Bld) [Vol rate/Area] NOT REPORTED [place] Glucose [Mass/Vol] 155 mg/dL High 70 - 99 mg/dL [place] Interpretation and review of laboratory results Abnormal [place] Potassium [Moles/Vol] 4.5 mmol/L 3.7 - 5.3 mmol/L [place] Sodium [Moles/Vol] 134 mmol/L Low 135 - 144 mmol/L [place] Urea nitrogen [Mass/Vol] 25 mg/dL High 8 - 23 mg/dL [place] CBC Auto Differentialon 04-06 Basophils (Bld) [#/Vol] 0.00 10*3/uL [place] Basophils/100 WBC (Bld) 0 % 0 - 2 % [place] Differential Type YES [place] Eosinophils (Bld) [#/Vol] 0.20 10*3/uL [place] Eosinophils/100 WBC (Bld) 3 % 0 - 5 % [place] Erythrocyte distribution width (RBC) [Ratio] 14.2 % 12.1 - 15.2 % [place] Hematocrit (Bld) [Volume fraction] 43.0 % 41 - 53 % [place] Hemoglobin (Bld) [Mass/Vol] 14.6 g/dL 13.5 - 17.5 g/dL [place] Lymphocytes (Bld) [#/Vol] 1.70 10*3/uL [place] Lymphocytes/100 WBC (Bld) 23 % 13 - 44 % [place] MCH (RBC) [Entitic mass] 30.9 pg 26 - 34 pg [place] MCHC (RBC) [Mass/Vol] 33.9 g/dL 31 - 37 g/dL [place] MCV (RBC) [Entitic vol] 91.1 fL 80 - 100 fL [place] Monocytes (Bld) [#/Vol] 0.70 10*3/uL [place] Monocytes/100 WBC (Bld) 9 % 5 - 9 % [place] Platelet mean volume (Bld) [Entitic vol] NOT REPORTED 6 - 12 fL [place] Platelets (Bld) [#/Vol] 237 10*3/uL [place] Platelets (Bld) [#/Vol] NOT REPORTED [place] RBC (Bld) [#/Vol] 4.73 10*6/uL 4.5 - 5.9 m/uL [place] RBC morphology finding Nom (Bld) NOT REPORTED [place] Segmented neutrophils/100 WBC (Bld) 65 % 39 - 75 % [place] Segs Absolute 4.90 [place] WBC (Bld) [#/Vol] NOT REPORTED per 100 WBC [place] WBC (Bld) [#/Vol] 7.6 10*3/uL [place] WBC Morphology NOT REPORTED [place], [place] Otheron 05-02-2020 Immature granulocytes (Bld) [#/Vol] NOT REPORTED [place] XR CHEST (2 VW)on 05-02-2020 Likely mild symmetri c emphysematous overinflation. No acute changes. [place] EXAM: XR CHEST (2 VW ) HISTORY: Reason for exam:->Pre-op for rt shoulder scope. COMPARISON: None. TECHNIQUE: 2 views chest. FINDINGS: Likely mild emphysematous overinflation. Heart size normal. Lungs clear. [place], [facility] Incoming Radiant Results From [facility] - 05/02/2020 1:56 PM EST EXAM: XR CHEST (2 VW) HISTORY: Reason for exam:->Pre-op for rt shoulder scope. COMPARISON: None. TECHNIQUE: 2 views chest. FINDINGS: Likely mild emphysematous overinflation. Heart size normal. Lungs clear. IMPRESSION: Likely mild symmetric emphysematous overinflation. No acute changes. [facility] [place] MRI SHOULDER RIGHT WO [address] [...] clinical follow up to assess for stability. [facility] [place] CLINICAL HISTORY: Impingement syndrome of right [...] glenohumeral joint, with small inferior marginal osteophytes. [facility] [place], pn Incoming Radiant Results From [facility] - 04/24/2020 12:20 PM EST CLINICAL HISTORY: [...] clinical follow up to assess for stability. [facility] [place] XR SHOULDER RIGHT (MIN 2 VIE WS)on 02-23-2020 Moderate degenerativ e changes at the acromioclavicular joint with undersurface spurring measuring 7 mm, which could contribute to outlet impingement. [facility] [place] EXAM: XR SHOULDER RIGHT (MIN 2 VIEWS). HISTORY: M19.011. 74-year-old male, right shoulder pain, arthritis right shoulder region. COMPARISON: None. TECHNIQUE: 3 views right shoulder FINDINGS: Moderate osteoarthritic change acromioclavicular joint with undersurface spurring. Minimal degenerative narrowing at the glenohumeral joint. [facility] [place], [facility] Incoming Radiant Results From [facility] - 02/23/2020 4:11 PM EST EXAM: XR [...] mm, which could contribute to outlet impingement. [facility] [place] [place] Vital Signs Date Time Vital Sign Value Performing Clinician Facility 01-17-2024 10:30-0400 Body height 175.3 cm Laya Plata HOTEL SERVICE SUPERVISOR Work Phone: [facility] 01-17-2024 10:30-0400 Body mass index (BMI) [Ratio] 25.08 kg/m2 Laya Jayline HOTEL SERVICE SUPERVISOR Work Phone: [facility] 01-17-2024 10:30-0400 Body temperature 97.81 [degF] Laya Rine HOTEL SERVICE SUPERVISOR Work Phone: [facility] 01-17-2024 10:30-0400 Body weight 77.02 kg Laya Jayline HOTEL SERVICE SUPERVISOR Work Phone: [facility] 01-17-2024 10:30-0400 Diastolic blood pressure 78 mm[Hg] Laya Jayline HOTEL SERVICE SUPERVISOR Work Phone: [facility] 01-17-2024 10:30-0400 Heart rate 70 /min Laya Jayline HOTEL SERVICE SUPERVISOR Work Phone: [facility] 01-17-2024 10:30-0400 Respiratory rate 18 /min Laya Rine HOTEL SERVICE SUPERVISOR Work Phone: [facility] 01-17-2024 10:30-0400 SaO2% (BldA) [Mass fraction] 96 % Laya Rine HOTEL SERVICE SUPERVISOR Work Phone: [facility] 01-17-2024 10:30-0400 Systolic blood pressure 138 mm[Hg] Laya Rine HOTEL SERVICE SUPERVISOR Work Phone: [facility] 05-09-2020 15:35-0500 BP Diastolic 58 mm[Hg] [place] 05-09-2020 15:35-0500 BP Systolic 113 mm[Hg] [place] 05-09-2020 15:35-0500 Pulse (Heart Rate) 60 /min [place] 05-09-2020 15:35-0500 Pulse Oximetry 96 % [place] 05-09-2020 15:35-0500 Respiratory Rate 18 /min [place] 05-09-2020 15:05-0500 Body Temperature 96.49 [degF] [place] 05-09-2020 10:31-0500 BMI (Body Mass Index) 26.09 kg/m2 [place] 05-09-2020 10:31-0500 Body weight 76.7 kg [place] 05-09-2020 10:31-0500 Height 171.5 cm [place] Encounters Encounter Date Encounter Type Care Provider Facility Start: 01-17-2024 End: 01-17-2024 Bamboo flowsheet Laya L Rine HOTEL SERVICE SUPERVISOR Work Phone: [facility] Start: 01-17-2024 End: 01-17-2024 Bamboo flowsheet Laya L Rine HOTEL SERVICE SUPERVISOR Work Phone: [facility] Start: 01-17-2024 End: 01-17-2024 Office outpatient visit 25 minutes Laya L Rine HOTEL SERVICE SUPERVISOR Work Phone: [facility] Comment on above: Type 2 diabetes carmen itus with complication (CMS/HCC) (Primary Dx); Stage 3a chronic kidney disease (HCC) (CMS/HCC); Type 2 diabetes mellitus with hyperglycemia (CMS/HCC); Mixed hyperlipidemia (CMS/HCC) Start: 01-17-2024 End: 01-17-2024 ambulatory LAYA L RINE Not Available Start: 01-16-2024 End: 01-17-2024 Refill Laya Plata HOTEL SERVICE SUPERVISOR Work Phone: [facility] Comment on above: Primary hypertension (CMS/HCC) Start: 01-10-2024 End: 01-10-2024 Bamboo flowsheet Nicol Salgado PA Work Phone: [facility] Start: 01-10-2024 End: 01-10-2024 Bamboo flowsheet Nicolirene Salgado PA Work Phone: [facility] Start: 01-10-2024 End: 01-10-2024 Telephone encounter Laya Plata HOTEL SERVICE SUPERVISOR Work Phone: [facility] Comment on [...] Not Available Start: 06-15-2023 End: 06-18-2023 ambulatory [facility] Start: 05-21-2023 End: 05-21-2023 ambulatory LAYA L RINE Not Available Start: 04-12-2023 End: 04-12-2023 ambulatory NICOL SALGADO Not Available Start: 04-02-2023 End: 04-02-2023 ambulatory PRETTY Tierney POCOS Not Available Start: 03-05-2023 End: 03-05-2023 ambulatory PRETTY Tierney POCOS Not Available Start: 03-01-2023 End: 03-04-2023 ambulatory DANIEL POP [facility] Start: 02-01-2023 End: 02-02-2023 ambulatory Ponce Fuentes MD Facility:[facility] Start: 04-23-2022 End: 04-24-[address] DOCTOR [...] by physician Daniel Pop DO Work Phone: [facility] Start: 07-15-2020 End: 07-15-2020 Subsequent hospital visit [...] [facility] [place] [facility] Comment on above: Impingement syndrome of [...] Subsequent hospital visit by physician Rosalino Singh [facility] Physical Therapy Comment on above: [...] Subsequent hospital visit by physician Rosalino Singh [facility] Physical Therapy Comment on above: Arrived Start: 03-19-2020 End: 03-19-2020 Subsequent hospital visit by physician Danay Can [facility] Comment on above: Arrived Start: 02-23-2020 End: 02-25-2020 Subsequent hospital visit by physician Anderson [facility] Comment on above: Arthritis of right s houlder region Start: 12-20-2018 End: 12-22-2018 [facility] Procedures Date Procedure Procedure Detail [...] screening for protein Diabetes: Urine Protein Screening [facility] Start: 05-08-2024 End: 05-08-2024 Patient encounter procedure 05/08/2024 11:00 AM EST Of fice Visit [facility] [address] [place] [address] Laya Plata, HOTEL SERVICE SUPERVISOR [address] [place] [address] [facility] Start: 04-14-2024 End: 04-14-2024 Patient encounter procedure 04/14/2024 10:40 AM EST Of fice Visit [facility] [address] [place] [address] Nicol Salgado, PA [address] [place] [address] [facility] Start: 04-13-2024 Hemoglobin A1c measurement Diabetes: Hemoglobin A1C [facility] Start: 03-13-2024 Influenza vaccination Influenza Vaccine (#1) [facility] Comment on above: Postponed from 12/05/2023 (Patient Refus ed) Start: 01-17-2024 End: 01-17-2024 Patient encounter procedure [facility] Comment on above: Type 2 diabetes mellitus with complicati on (CMS/HCC) (Primary Dx); Stage 3a chronic kidney disease (HCC) ([facility]/HCC) Start: 01-10-2024 End: 01-10-2024 Patient encounter procedure 01/10/2024 10:30 AM EDT Of fice Visit [facility] [address] [place] [address] Nicol Salgado PA [address] [place] [address] Arrived [facility] Comment on above: Arrived Start: 12-16-2023 Hemoglobin A1c measurement Diabetes: Hemoglobin A1C [facility] Start: 12-11-2023 Glaucoma screening Diabetes: Retinopathy Screening [facility] Start: 12-05-2023 Influenza vaccination Influenza Vaccine (#1) [facility] Start: 08-12-2022 Urine screening for protein Diabetes: Urine Protein Screening [facility] Start: 05-04-2022 End: 05-04-2022 Admission to same day surgery center 05/04/2022 Surgery IP Unit Back, MD Brian [address] [place] [address] COLONOSCOPY [facility] Comment on [...] Encounter IP Unit Mike, MD Brian [address] [place] [address] [facility] Start: 05-02-2021 Creatinine measurement Creatinine monitoring [facility], [place] Start: 05-02-2021 Potassium monitoring Potassium monitoring [facility] Start: 08-13-2020 COVID-19 Vaccine (2 - Booster for Hermila series) COVID-19 Vaccine (2 - Booster for Hermila series) [facility] Start: 07-11-2020 End: 07-11-2020 Appointment [facility] [...] 06-17-2020 Appointment 06/17/2020 Appointment Physical Therapy Nathalie Burhnam [facility] Start: 06-14-2020 End: 06-14-2020 [...] Physical Therapy Start: 06-03-2020 [facility] Start: 05-31-2020 Hospital Encounter 05/31/[address] [facility] Physical Alisia Rojas [facility] Start: [...] Appointment 04/09/2020 Appointment Physical Therapy Rosalino Singh APPLIED EXERCISE PHYSIOLOGIST [facility] Start: 04-03-2020 End: 04-03-2020 Appointment 04/03/2020 Appointment Physical Therapy Rosalino Singh APPLIED EXERCISE PHYSIOLOGIST [facility] Start: 04-01-2020 End: 04-01-2020 Appointment 04/01/2020 Appointment Physical Therapy Rosalino Singh APPLIED EXERCISE PHYSIOLOGIST [facility] Start: 03-27-2020 End: 03-27-2020 Appointment 03/27/2020 Appointment Physical Therapy Jessica Albarado, PT [address] [place] [address] [phone] [facility] Start: 03-26-2020 End: 03-26-2020 Appointment 03/26/2020 Appointment Physical Therapy Danay Can, PT [facility] Start: 03-21-2020 End: 03-21-2020 Appointment 03/21/2020 Appointment Physical Therapy Rosalino Singh APPLIED EXERCISE PHYSIOLOGIST [facility] Start: 12-01-2019 Colon cancer screen colonoscopy Colon cancer screen colonoscopy [place] Start: 12-04-2018 Influenza vaccination Flu vaccine (#1) [place] Start: 09-22-2018 Annual Wellness Visit (AWV) Annual Wellness Visit (AWV) [facility] Start: 03-02-2018 Pneumococcal 65+ years Vaccine (2 of 2 - PCV13) Pneumococcal 65+ years Vaccine (2 of 2 - PCV13) [place] Start: 06-22-1993 Shingles Vaccine (1 of 2) Shingles Vaccine (1 of 2) [facility] Start: 06-22-1962 DTaP/Tdap/Td vaccine (1 - Tdap) DTaP/Tdap/Td vaccine (1 - Tdap) [facility] Start: 06-22-1961 Hepatitis C screening Hepatitis C screen [facility] Start: 1959 COVID-19 Vaccine (1 of 2) COVID-19 Vaccine (1 of 2) [place], [place] Start: 1959 COVID-19 Vaccine (1) COVID-19 Vaccine (1) [facility] Work Phone: Start: 1955 Depression Screen Depression Screen [facility] Start: 06-22-1953 [object Object] Diabetic foot exam [place] Start: 06-22-1953 A1C test (Diabetic or Prediabetic) A1C test (Diabetic or Prediabetic) [place] Start: 06-22-1953 Diabetic retinal exam Diabetic retinal exam [place] Start: 06-22-1953 Lipid panel [facility] Start: 06-22-1953 Lipid screen Lipid screen [place], [place] Start: 1943 AAA screen AAA screen [place], [place] Start: 1943 Creatinine measurement Creatinine monitoring [place] Start: 1943 Creatinine monitoring Creatinine monitoring [place] Start: 1943 Hepatitis C screening Hepatitis C screen [place], [place] Start: 1943 Potassium monitoring Potassium monitoring [place] Oxygen therapy [Mini [facility] Data Set] Initiate Oxygen Therapy Protocol Respiratory Care Routine Daily until discontinued starting 05/09/2020 [place] Comment on above: Daily until discontinued starting 2020 End: 05-09-2020 POCT glucose POCT glucose Point of Care Testing Routine One Time for 1 Occurrences starting 05/09/2020 until 05/09/2020 [place] Comment on above: One Time for 1 Occurrences starting 07/2020 until 05/09/2020 Immunizations Immunization Date Immunization Notes Care Provider Fa [facility] 03-03-2022 Influenza, High-dose Seasonal, Quadrivalent, Preservative Free Nicol TURPIN Work Phone: [facility] 03-03-2022 influenza virus vacc ine, unspecified formulation Nicol TURPIN Work Phone: [facility] 01-01-2021 Influenza, High-dose Seasonal, Quadrivalent, Preservative Free Nicol TURPIN Work Phone: [facility] 02-22-2020 influenza, injectabl e, quadrivalent, preservative free Nicol Naomi PA Work Phone: [facility] 04-25-2019 Seasonal trivalent influenza vaccine, adjuvanted, preservative free Nicol Naomi PA Work Phone: [facility] 03-02-2018 influenza, high dose seasonal, preservative-free Nicol Naomi PA Work Phone: [facility] 03-02-2017 pneumococcal polysaccharide vaccine, 23 valent Nicol Naomi PA Work Phone: [facility] 01-07-2017 influenza, high dose seasonal, preservative-free Nicol Naomi PA Work Phone: [facility] 01-03-2016 influenza, injectabl e, quadrivalent, contains preservative Nicol Naomi PA Work Phone: [facility] 03-11-2015 influenza, injectabl e, quadrivalent, preservative free Nicol Naomi PA Work Phone: [facility] 03-11-2015 pneumococcal conjuga te vaccine, 13 valent Nicol Naomi PA Work Phone: [facility] Payers Date Payer Category Payer Medicare MEDICARE MEDICAR E PART A AND B xxxxxxxxxx 2016-Present [phone] [address] [address] [place] [address] xxxxxxxxxx [id number] 2016 Private Health Insurance HUMANA HUMANA MEDICARE SUPP xxxxxxxxx 2016-Present [address] [address] [place] [address] xxxxxxxxx [id number] 2015 Private Health Insurance 2008 Medicare 1959 Medicare [id number] 1959 Private Health Insurance [id number] 1943 Unknown [id number] 2.16.840.1.254720.3.579.2 .593 1943 Unknown [id number] 2.16.840.1.585500.3.579.2 .593 1943 Unknown [id number] 2.16.840.1.784085.3.579.2 .593 1943 Unknown [id number] 2.16.840.1.265653.3.579.2 .593 1943 Unknown [id number] 2.16.840.1.717205.3.579.2 .593 1943 Unknown [id number] 2.16.840.1.483054.3.579.2 .196 1943 Unknown [id number] 2.16.840.1.014537.3.579.2 .174 1943 Unknown [id number] 2.16.840.1.909021.3.579.2 .174 1943 Unknown [id number] 2.16.840.1.809665.3.579.2 .174 1943 Unknown [id number] 2.16.840.1.184503.3.579.2 .174 1943 Unknown [id number] 2.16.840.1.700819.3.579.2 .1259 1943 Unknown [id number] 2.16.840.1.324810.3.579.2 .1259 1943 Unknown [id number] 2.16.840.1.397350.3.579.2 .1259 1943 Unknown [id number] 2.16.840.1.209395.3.579.2 .1259 1943 Unknown [id number] 2.16.840.1.765903.3.579.2 .1258 1943 Unknown [id number] 2.16.840.1.564775.3.579.2 .9 1943 Unknown [id number] 2.16.840.1.729411.3.579.2 .1258 1943 Unknown [id number] 2.16.840.1.083391.3.579.2 .1258 1943 Unknown [id number] 2.16.840.1.415245.3.579.2 .1258 1943 Unknown [id number] 2.16.840.1.994989.3.579.2 .1258 1943 Unknown [id number] 2.16.840.1.083885.3.579.2 .1259 Social History Date Type Detail Facility Start: 12-15-2016 End: 09-17-2023 Tobacco smoking status NHIS [place] Start: 02-06-1991 End: 11-30-2006 History of tobacco use Current [place] Start: 02-06-1991 End: 11-30-2006 History of tobacco use Cigarette Smoker [place] End: 11-30-2006 History of tobacco use Pipe Smoker [place] Start: 12-15-2016 End: 04-20-2022 Tobacco use and exposure Former user [place] History of tobacco use Snuff User [place] History of tobacco use Chews Tobacco [place] Start: 12-15-2016 End: 01-17-2024 Alcohol intake Current drinker of alcohol (finding) [place], [place] Start: 1945 Sex Assigned At Not on file [place] Exposure to SARS-CoV -2 (event) Not sure [place] Start: 12-15-2016 End: 01-18-2023 Alcohol intake Yes [facility] Start: 05-09-2020 End: 01-18-2023 Alcohol intake [facility] Start: 04-20-2022 History 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 No [facility] Do you belong to any clubs or organizations such as restorationism groups, unions, [employer] or athletic groups, or school groups? Yes [...] Equipment Origin al Text Equipment Identifier Dates [place] [employer] [id number] Mm Tiana Wiggins [id number] Start: 05-09-2020 [id number] Start: 04-20-2023 Clinical Notes 07-16-2021 to 01-17-2024 Laya Plata NP - 01/17/2024 10:30 AM EDTPatient InstructionsTelephone Encounter - Laya Plata NP - 01/10/2024 11:24 AM EDTTelephone Encounter - Laya Plata, HOTEL SERVICE SUPERVISOR - 01/10/2024 11:24 AM EDT Note Date [...] 25 mg, Oral, Every morning [employer] [place] 32G X 4 MM misc Inject under [...] REPAIR COLONOSCOPY 2010 KNEE SURGERY Arthroscopy knee CO REPAIR OF NASAL SEPTUM nasal septoplasty to [...] him farxiga 10mg #28 samples, sent to [facility] pharmacy for brenzavvy (sglt 2) rec [...] 3.5 mo . documented in this encounter [facility] 01-17-2024 Instructions Laya Plata NP - 01/17/2024 10:30 AM EDT Farxiga 10mg per day with samples for now Brenzavvy is the new medication, one daily from the [facility] pharmacy Call if any issues getting this Check aic again in 3 mo documented in this encounter [facility] 01-10-2024 Telephone encount er Note Sent as requested [facility] 01-10-2024 Miscellaneous Notes Formattin g of this note might be different from the original. Sent as requested Refill Atorvastatin 40mg --med loaded [facility] documented in this encounter [facility] 01-10-2024 Telephone encount er Note Refill Atorvastatin 40mg --med loaded [facility] 01-10-2024 History of Presen t illness Narrative [...] limited to risks of scarring, darker or executive manager pigmentary changes, recurrence, incomplete removal and infection. [...] Visit: as scheduled documented in this encounter [facility] 04-23-2022 Note CONSULTATION CONSULTATION DATE: 04/23/2022 HISTORY [...] will contact the office as needed. [facility] 03-19-2022 Note CONSULTATION CONSULTATION DATE: 03/19/2022 HISTORY [...] followed up in the clinic thereafter. [facility] 07-22-2021 Note OPERATIVE NOTE OPERATION DATE:07/22/2021 PREOPERATIVE [...] Will be followed up in the office. [facility] Signed and Approved by: DR ABNER WASHINGTON . 07/29/2021 12:16:00 [facility] 07-16-2021 Note PROCEDURE: XR SHOULD ER LT [...] by: OTF LIAO Date: 2021-07-16 15:31 [facility] 07-16-2021 Note CONSULTATION PAIN MANAGEMENT CONSULTATION HISTORY [...] plan of care and all questions answered. [facility] Signed and Approved by: JESSE WOOD . 07/17/2021 16:20:00 [facility] Evaluation note Diagnosis Pre-op testing Preoperative examination, unspecified Screening for colon cancer Special screening for malignant neoplasms, colon [facility]* Diagnosis Actinic keratosis- Primary documented in this encounter [facility] HealthcareEvaluation note* Diagnosis Mixed hyperlipidemia (CMS/HCC) Mixed hyperlipidemia documented in this encounter [facility] HealthcareEvaluation note* Diagnosis Primary hypertension (CMS/HCC) Unspecified essential hypertension Type 2 diabetes mellitus with complication (CMS/HCC)- Primary Stage 3a chronic kidney disease (HCC) (CMS/HCC) documented in this encounter [facility] HealthcareEvaluation note* Diagnosis Type 2 diabetes mellitus with complication (CMS/HCC)- Primary Stage 3a chronic kidney disease (HCC) ([facility]/HCC) Type 2 diabetes mellitus with hyperglycemia ([facility]/HCC) Mixed hyperlipidemia ([facility]) Mixed hyperlipidemia documented in this encounter [facility] [...] Documents on File Type Date Recorded Patient Service Station Attendant Expl anation ACP-Advance Directive ACP-Power of Commercial Airplane Pilot Latest Code Status on File Code Status Date Activated Date Inactivated Comments Full Code 11/30/2016 6:33 AM 11/30/2016 11:59 AM Documents on File Type Date Recorded Patient Service Station Attendant Expl anation ACP-Advance Directive ACP-Power of Commercial Airplane Pilot Latest Code Status on File Code Status [...] Documents on File Type Date Recorded Patient Service Station Attendant Expl anation Advance Directives and Living Will Power of Commercial Airplane Pilot Healthcare Agents on File Name Relationship Healthcare Agent [facility] calvin Dominguezcarolyn Starks Spouse Primary Decision Maker Documents on File Type Date Recorded Patient Service Station Attendant Expl anation Advance Directives and Livin g Will [id number] History of Present Illness * Danay Can, PT - 03/19/2020 8:30 AM EST [facility] Evaluation Date: 03/19/2020 Patient: Tony Starks : 1945 Referring Practitioner: Dr. Pretty Ames Referral Date : 03/14/20 Diagnosis: R shoulder IS, AC, OA Treatment Diagnosis: R shoulder pain Onset Date: 03/14/20 PT Insurance Information: [facility] Total # of Visits Approved: 18 [...] 45deg of IR to improve dressing kenrick. [facility] goals Time Frame for terminal gauger supervisor goals : 15 visits(POC Exp 04/30/19) terminal gauger supervisor goal 1: Pt to score >51/80 on UEFS to improve ADL kenrick [facility] goal 2: Pt to have ER of 55deg to improve upper body dressing. terminal gauger supervisor goal 3: Pt to have 4/5 Horiz ABD strength to improve pt posture. [facility] goal 4: Pt to have 4/5 ER strength without pain to improve ADL kenrick. Patient's Goal: Patient goals : Relieve his shoulder pain so he can complete ADLs and hobbies Timed Code Treatment Minutes: 0 Minutes Total Treatment Time: 45 Time In: 0835 Time Out: 09 Danay Can, PT Date: 03/19/2020 documented in this encounter* Rosalino Singh, APPLIED EXERCISE PHYSIOLOGIST - 03/21/2020 10:30 AM EST [facility] Daily Note Date: 03/21/2020 Patient Name: Tony Starks : 1945 (74 y.o.) Referring Practitioner: Dr. Pretty Ames Referral Date : 03/14/20 Diagnosis: R shoulder IS, AC, OA Treatment Diagnosis: R shoulder pain Onset Date: 03/14/20 PT Insurance Information: [facility] Total # of Visits Approved: 18 [...] 45deg of IR to improve dressing kenrick. Snf Goals - Time Frame for terminal gauger supervisor goals : 15 visits(POC Exp 04/30/19) [facility] goal 1: Pt to score >51/80 on UEFS to improve ADL kenrick [facility] goal 2: Pt to have ER of 55deg to improve upper body dressing. [facility] goal 3: Pt to have 4/5 Horiz ABD strength to improve pt posture. [facility] goal 4: Pt to have 4/5 ER strength without pain to improve ADL kenrick. Post Treatment Pain: 05/15 Time In: 1030 Time Out : 1110 Timed Code Treatment Minutes: 40 Minutes Total Treatment Time: 40 Minutes Rosalino Singh PTA Date: 03/21/2020 documented in this encounter* Danay Can, PT - 03/26/2020 10:15 AM EST [facility] Daily Note Date: 03/26/2020 Patient Name: Tony Starks : 1945 (74 y.o.) Referring Practitioner: Dr. Pretty Ames Referral Date : 03/14/20 Diagnosis: R shoulder IS, AC, OA Treatment Diagnosis: R shoulder pain Onset Date: 03/14/20 PT Insurance Information: [facility] Total # of Visits Approved: 18 [...] 45deg of IR to improve dressing kenrick. [facility] Goals - Time Frame for [facility] goals : 15 visits(POC Exp 04/30/19) terminal gauger supervisor goal 1: Pt to score >51/80 on UEFS to improve ADL kenrick terminal gauger supervisor goal 2: Pt to have ER of 55deg to improve upper body dressing. [facility] goal 3: Pt to have 4/5 Horiz ABD strength to improve pt posture. terminal gauger supervisor goal 4: Pt to have 4/5 ER strength without pain to improve ADL kenrick. Post Treatment Pain: 04/14 Time In: 1019 Time Out: 1059 Timed Code Treatment Minutes: 40 Minutes Total Treatment Time: 40 Minutes Danay Can, PT Date: 03/26/2020 documented in this encounter* Jessica Albarado, PT - 03/27/2020 2:30 PM EST [facility] Daily Note Date: 03/27/2020 Patient Name: Tony Starks : 1945 (74 y.o.) Referring Practitioner: Dr. Pretty Ames Referral Date : 03/14/20 Diagnosis: R shoulder IS, AC, OA Treatment Diagnosis: R shoulder pain Onset Date: 03/14/20 PT Insurance Information: [facility] Total # of Visits Approved: 18 [...] 45deg of IR to improve dressing kenrick. Snf Goals - Time Frame for [facility] goals : 15 visits(POC Exp 04/30/19) terminal gauger supervisor goal 1: Pt to score >51/80 on UEFS to improve ADL kenrick terminal gauger supervisor goal 2: Pt to have ER of 55deg to improve upper body dressing. [facility] goal 3: Pt to have 4/5 Horiz ABD strength to improve pt posture. terminal gauger supervisor goal 4: Pt to have 4/5 ER strength without pain to improve ADL kenrick. Post Treatment Pain: 05/15 Time In: 1440 Time Out : 1525 Timed Code Treatment Minutes: 40 Minutes Total Treatment Time: 40 Minutes JESSICA ALBARADO PT Date: 03/27/2020 documented in this encounter* Rosalino Singh, APPLIED EXERCISE PHYSIOLOGIST - 04/09/2020 10:30 AM EST [facility] Daily Note Date: 04/09/2020 Patient Name: Tony Starks : 1945 (74 y.o.) Referring Practitioner: Dr. Pretty Ames Referral Date : 03/14/20 Diagnosis: R shoulder IS, AC, OA Treatment Diagnosis: R shoulder pain Onset Date: 03/14/20 PT Insurance Information: [facility] Total # of Visits Approved: 18 [...] IR to improve dressing kenrick. - [facility] Goals - Time Frame for [facility] goals : 15 visits(POC Exp 04/30/19) [facility] goal 1: Pt to score >51/80 on UEFS to improve ADL kenrick [facility] goal 2: Pt to have ER of 55deg to improve upper body dressing. - [facility] goal 3: Pt to have 4/5 Horiz ABD strength to improve pt posture. [facility] goal 4: Pt to have 4/5 ER strength without pain to improve ADL kenrick. Post Treatment Pain: 2-06/12 Time In: 1030 Time Out : 1115 Timed Code Treatment Minutes: 45 Minutes Total Treatment Time: 45 Minutes Rosalino Singh PTA Date: 04/09/2020 documented in this encounter* Danay Can, PT - 04/11/2020 10:30 AM EST [facility] Daily Note Date: 04/11/2020 Patient Name: Tony Starks : 1945 (74 y.o.) Referring Practitioner: Dr. Pretty Ames Referral Date : 03/14/20 Diagnosis: R shoulder IS, AC, OA Treatment Diagnosis: R shoulder pain Onset Date: 03/14/20 PT Insurance Information: [facility] Total # of Visits Approved: 18 [...] IR to improve dressing kenrick. - [facility] Goals - Time Frame for [facility] goals : 15 visits(POC Exp 04/30/19) terminal gauger supervisor goal 1: Pt to score >51/80 on UEFS to improve ADL kenrick [facility] goal 2: Pt to have ER of 55deg to improve upper body dressing. - [facility] goal 3: Pt to have 4/5 Horiz ABD strength to improve pt posture. terminal gauger supervisor goal 4: Pt to have 4/5 ER strength without pain to improve ADL kenrick. Post Treatment Pain: 2/10 Time In: 1030 Time Out : 1113 Timed Code Treatment Minutes: 43 Minutes Total Treatment Time: 43 Minutes Danay Can, BRUCE Date: 04/11/2020 documented in this encounter* Benitez Bobo - 04/15/2020 10:30 AM EST [facility] Progress Report Date: 04/15/2020 Patient: Tony Starks : 1945 Referring Practitioner: Dr. Pretty Ames Referral Date : 03/14/20 Diagnosis: R shoulder IS, AC, OA Treatment Diagnosis: R shoulder pain Onset Date: 03/14/20 PT Insurance Information: [facility] Total # of Visits Approved: 18 [...] IR to improve dressing kenrick. - [facility] goals Time Frame for [facility] goals : 15 visits(POC Exp 04/30/19) terminal gauger supervisor goal 1: Pt to score >51/80 on UEFS to improve ADL kenrick terminal gauger supervisor goal 2: Pt to have ER of 55deg to improve upper body dressing. - [facility] terminal gauger supervisor goal 3: Pt to have 4/5 Horiz ABD strength to improve pt posture. [facility] goal 4: Pt to have 4/5 ER strength without pain to improve ADL kenrick. Benitez Bobo, PATRICKA/Directly Supervised By:Danay Can, PT Date: 04/15/2020 * Benitez Bobo - 04/15/2020 10:30 AM EST [facility] Daily Note Date: 04/15/2020 Patient Name: Tony Starks : 1945 (74 y.o.) Referring Practitioner: Dr. Pretty Ames Referral Date : 03/14/20 Diagnosis: R shoulder IS, AC, OA Treatment Diagnosis: R shoulder pain Onset Date: 03/14/20 PT Insurance Information: [facility] Total # of Visits Approved: 18 [...] IR to improve dressing kenrick. - [facility] Goals - Time Frame for terminal gauger supervisor goals : 15 visits(POC Exp 04/30/19) [facility] goal 1: Pt to score >51/80 on UEFS to improve ADL kenrick terminal gauger supervisor goal 2: Pt to have ER of 55deg to improve upper body dressing. - [facility] goal 3: Pt to have 4/5 Horiz ABD strength to improve pt posture. [facility] goal 4: Pt to have 4/5 ER [...] Worthington, PT - 05/29/2020 11:00 AM EST [facility] Evaluation Date: 05/29/2020 Patient: Tony Starks : 1945 Referring Practitioner: Dr. Pretty Ames Referral Date : 05/23/20 Diagnosis: R shoulder scope, LHB debridment, SAD, RCR Treatment Diagnosis: R shoulder pain s/p RTC sx Onset Date: 05/09/20 PT Insurance Information: [facility] Total # of Visits Approved: 18 [...] increase PROM R shld flexion 145 degrees [facility] goals Time Frame for [facility] goals : 18 visits terminal gauger supervisor goal 1: Pt to have improved functional activitities with UEFS score >50/80 terminal gauger supervisor goal 2: Pt to demonstrate 135deg AROM shoulder flexion to improve ability to reach into cupboards terminal gauger supervisor goal 3: Pt to demonstrate 4/5 shoulder [...] Worthington, PT - 06/05/2020 10:30 AM EST [facility] Daily Note Date: 06/05/2020 Patient Name: Tony A Raudel : 1945 (74 y.o.) Referring Practitioner: Dr. Pretty Ames Referral Date : 05/23/20 Diagnosis: R shoulder scope, LHB debridment, SAD, RCR Treatment Diagnosis: R shoulder pain s/p RTC sx Onset Date: 05/09/20 PT Insurance Information: [facility] Total # of Visits Approved: 18 [...] increase PROM R shld flexion 145 degrees Health [facility] Goals - Time Frame for [facility] goals : 18 visits terminal gauger supervisor goal 1: Pt to have improved functional activitities with UEFS score >50/80 [facility] goal 2: Pt to demonstrate 135deg AROM shoulder flexion to improve ability to reach into cupboards [facility] goal 3: Pt to demonstrate 4/5 shoulder horizontal abd strength to improve ADLs and posture. Post Treatment Pain: 05/15 Time In: 10:30 Time Out : 11:00 Timed Code Treatment Minutes: 30 Minutes Total Treatment Time: 30 Minutes Quynh Worthington, PT Date: 06/05/2020 documented in this encounter* Quynh Worthington, PT - 06/07/2020 11:15 AM EST [facility] Daily Note Date: 06/07/2020 Patient Name: Tony Starks : 1945 (74 y.o.) Referring Practitioner: Dr. Pretty Ames Referral Date : 05/23/20 Diagnosis: R shoulder scope, LHB debridment, SAD, RCR Treatment Diagnosis: R shoulder pain s/p RTC sx Onset Date: 05/09/20 PT Insurance Information: [facility] Total # of Visits Approved: 18 [...] increase PROM R shld flexion 145 degrees-[facility] Goals - Time Frame for [facility] goals : 18 visits terminal gauger supervisor goal 1: Pt to have improved functional activitities with UEFS score >50/80 [facility] goal 2: Pt to demonstrate 135deg AROM shoulder flexion to improve ability to reach into cupboards terminal gauger supervisor goal 3: Pt to demonstrate 4/5 shoulder horizontal abd strength to improve ADLs and posture. Post Treatment Pain: 05/15 Time In: 11:15 Time Out : 11:45 Timed Code Treatment Minutes: 30 Minutes Total Treatment Time: 30 Minutes Quynh Worthington PT Date: 06/07/2020 documented in this encounter* Nathalie Burnham - 06/10/2020 10:30 AM EST Images from the original note were not included. [facility] Daily Note Date: 06/10/2020 Patient Name: Tony Starks : 1945 (74 y.o.) Referring Practitioner: Dr. Pretty Ames Referral Date : 05/23/20 Diagnosis: R shoulder scope, LHB debridment, SAD, RCR Treatment Diagnosis: R shoulder pain s/p RTC sx Onset Date: 05/09/20 PT Insurance Information: [facility] Total # of Visits Approved: 18 [...] increase PROM R shld flexion 145 degrees-[facility] Goals - Time Frame for [facility] goals : 18 visits terminal gauger supervisor goal 1: Pt to have improved functional activitities with UEFS score >50/80 [facility] goal 2: Pt to demonstrate 135deg AROM shoulder flexion to improve ability to reach into cupboards terminal gauger supervisor goal 3: Pt to demonstrate 4/5 shoulder horizontal abd strength to improve ADLs and posture. Post Treatment Pain: 05/15 Time In: 1030 Time Out : 1105 Timed Code Treatment Minutes: 35 Minutes Total Treatment Time: 35 Minutes Nathalie Burnham APPLIED EXERCISE PHYSIOLOGIST Date: 06/10/2020 documented in this encounter* Nathalie Burnham - 06/14/2020 11:15 AM EST Images from the original note were not included. [facility] Daily Note Date: 06/14/2020 Patient Name: Tony Starks : 1945 (74 y.o.) Referring Practitioner: Dr. Pretty Ames Referral Date : 05/23/20 Diagnosis: R shoulder scope, LHB debridment, SAD, RCR Treatment Diagnosis: R shoulder pain s/p RTC sx Onset Date: 05/09/20 PT Insurance Information: [facility] Total # of Visits Approved: 18 [...] increase PROM R shld flexion 145 degrees-[facility] Goals - Time Frame for [facility] goals : 18 visits [facility] goal 1: Pt to have improved functional activitities with UEFS score >50/80 terminal gauger supervisor goal 2: Pt to demonstrate 135deg AROM shoulder flexion to improve ability to reach into cupboards [facility] goal 3: Pt to demonstrate 4/5 shoulder horizontal abd strength to improve ADLs and posture. Post Treatment Pain: 0/10 Time In: 1115 Time Out : 1155 Timed Code Treatment Minutes: 40 Minutes Total Treatment Time: 40 Minutes Nathalie Burnham APPLIED EXERCISE PHYSIOLOGIST Date: 06/14/2020 documented in this encounter* Quynh Worthington, PT - 06/19/2020 1:45 PM EDT Images from the original note were not included. [facility] Daily Note Date: 06/19/2020 Patient Name: Tony Starks : 1945 (74 y.o.) Referring Practitioner: Dr. Pretty Ames Referral Date : 05/23/20 Diagnosis: R shoulder scope, LHB debridment, SAD, RCR Treatment Diagnosis: R shoulder pain s/p RTC sx Onset Date: 05/09/20 PT Insurance Information: [facility] Total # of Visits Approved: 18 [...] increase PROM R shld flexion 145 degrees-[facility] Goals - Time Frame for terminal gauger supervisor goals : 18 visits terminal gauger supervisor goal 1: Pt to have improved functional activitities with UEFS score >50/80 [facility] goal 2: Pt to demonstrate 135deg AROM shoulder flexion to improve ability to reach into cupboards-[facility] goal 3: Pt to demonstrate 4/5 shoulder horizontal abd strength to improve ADLs and posture. Post Treatment Pain: 05/15 Time In: 13:45 Time Out : 14:15 Timed Code Treatment Minutes: 30 Minutes Total Treatment Time: 30 Minutes Quynh Worthington, PT Date: 06/19/2020 documented in this encounter* Alisia Sapp - 06/21/2020 11:15 AM EDT Images from the original note were not included. [facility] Daily Note Date: 06/21/2020 Patient Name: Tony Starks : 1945 (74 y.o.) Referring Practitioner: Dr. Pretty Ames Referral Date : 05/23/20 Diagnosis: R shoulder scope, LHB debridment, SAD, RCR Treatment Diagnosis: R shoulder pain s/p RTC sx Onset Date: 05/09/20 PT Insurance Information: [facility] Total # of Visits Approved: 18 [...] increase PROM R shld flexion 145 degrees-[facility] Goals - Time Frame for [facility] goals : 18 visits terminal gauger supervisor goal 1: Pt to have improved functional activitities with UEFS score >50/80 [facility] goal 2: Pt to demonstrate 135deg AROM shoulder flexion to improve ability to reach into cupboards-[facility] goal 3: Pt to demonstrate 4/5 shoulder horizontal abd strength to improve ADLs and posture. Post Treatment Pain: 1/10 Time In: 1115 Time Out : 1154 Timed Code Treatment Minutes: 39 Minutes Total Treatment Time: 39 Minutes Alisia Sapp,APPLIED EXERCISE PHYSIOLOGIST Date: 06/21/2020 documented in this encounter* Alisia Sapp - 06/24/2020 1:45 PM EDT Images from the original note were not included. [facility] Daily Note Date: 06/24/2020 Patient Name: Tony Starks : 1945 (75 y.o.) Referring Practitioner: Dr. Pretty Ames Referral Date : 05/23/20 Diagnosis: R shoulder scope, LHB debridment, SAD, RCR Treatment Diagnosis: R shoulder pain s/p RTC sx Onset Date: 05/09/20 PT Insurance Information: [facility] Total # of Visits Approved: 18 [...] increase PROM R shld flexion 145 degrees-[facility] Goals - Time Frame for [facility] goals : 18 visits terminal gauger supervisor goal 1: Pt to have improved functional activitities with UEFS score >50/80 terminal gauger supervisor goal 2: Pt to demonstrate 135deg AROM shoulder flexion to improve ability to reach into cupboards-[facility] goal 3: Pt to demonstrate 4/5 shoulder horizontal abd strength to improve ADLs and posture. Post Treatment Pain: 1-2 Time In: 1341 Time Out : 1422 Timed Code Treatment Minutes: 43 Minutes Total Treatment Time: 43 Minutes Alisia SappAPPLIED EXERCISE PHYSIOLOGIST Date: 06/24/2020 documented in this encounter* Quynh Worthington, PT - 06/26/2020 11:15 AM EDT Images from the original note were not included. [facility] Progress Report Date: 06/26/2020 Patient: Tony Starks : 1945 Referring Practitioner: Dr. Pretty Ames Referral Date : 05/23/20 Diagnosis: R shoulder scope, LHB debridment, SAD, RCR Treatment Diagnosis: R shoulder pain s/p RTC sx Onset Date: 05/09/20 PT Insurance Information: [facility] Total # of Visits Approved: 18 [...] increase PROM R shld flexion 145 degrees-[facility] goals Time Frame for terminal gauger supervisor goals : 18 visits terminal gauger supervisor goal 1: Pt to have improved functional activitities with UEFS score >50/80 [facility] goal 2: Pt to demonstrate 135deg AROM shoulder flexion to improve ability to reach into cupboards-[facility] goal 3: Pt to demonstrate 4/5 shoulder horizontal abd strength to improve ADLs and posture. Nathalie Aureliano Chacha APPLIED EXERCISE PHYSIOLOGIST Date: 06/26/2020 * Nathalie Burnham - 06/26/2020 11:15 AM EDT Images from the original note were not included. [facility] Daily Note Date: 06/26/2020 Patient Name: Tony Starks : 1945 (75 y.o.) Referring Practitioner: Dr. Pretty Ames Referral Date : 05/23/20 Diagnosis: R shoulder scope, LHB debridment, SAD, RCR Treatment Diagnosis: R shoulder pain s/p RTC sx Onset Date: 05/09/20 PT Insurance Information: [facility] Total # of Visits Approved: 18 [...] increase PROM R shld flexion 145 degrees-[facility] Goals - Time Frame for terminal gauger supervisor goals : 18 visits terminal gauger supervisor goal 1: Pt to have improved functional activitities with UEFS score >50/80 terminal gauger supervisor goal 2: Pt to demonstrate 135deg AROM shoulder flexion to improve ability to reach into cupboards-[facility] goal 3: Pt to demonstrate 4/5 shoulder horizontal abd strength to improve ADLs and posture. Post Treatment Pain: 210 Time In: 1112 Time Out : 1150 Timed Code Treatment Minutes: 38 Minutes Total Treatment Time: 38 Minutes Nathalie Burnham APPLIED EXERCISE PHYSIOLOGIST Date: 06/26/2020 documented in this encounter* MichaelAlisia dorsey S - 07/01/2020 11:15 AM EDT Images from the original note were not included. [facility] Daily Note Date: 07/01/2020 Patient Name: Tony Starks : 1945 (75 y.o.) Referring Practitioner: Dr. Pretty Ames Referral Date : 05/23/20 Diagnosis: R shoulder scope, LHB debridment, SAD, RCR Treatment Diagnosis: R shoulder pain s/p RTC sx Onset Date: 05/09/20 PT Insurance Information: [facility] Total # of Visits Approved: 18 [...] increase PROM R shld flexion 145 degrees-[facility] Goals - Time Frame for terminal gauger supervisor goals : 18 visits terminal gauger supervisor goal 1: Pt to have improved functional activitities with UEFS score >50/80 terminal gauger supervisor goal 2: Pt to demonstrate 135deg AROM shoulder flexion to improve ability to reach into cupboards-[facility] terminal gauger supervisor goal 3: Pt to demonstrate 4/5 shoulder horizontal abd strength to improve ADLs and posture. Post Treatment Pain: 0/10 Time In: 1114 Time Out : 1153 Timed Code Treatment Minutes: 39 Minutes Total Treatment Time: 39 Minutes Alisia Sapp ,APPLIED EXERCISE PHYSIOLOGIST Date: 07/01/2020 documented in this encounter* Quynh Worthington, PT - 07/03/2020 11:15 AM EDT Images from the original note were not included. [facility] Daily Note Date: 07/03/2020 Patient Name: Tony Starks : 1945 (75 y.o.) Referring Practitioner: Dr. Pretty Ames Referral Date : 05/23/20 Diagnosis: R shoulder scope, LHB debridment, SAD, RCR Treatment Diagnosis: R shoulder pain s/p RTC sx Onset Date: 05/09/20 PT Insurance Information: [facility] Total # of Visits Approved: 18 [...] increase PROM R shld flexion 145 degrees-[facility] Goals - Time Frame for [facility] goals : 18 visits [facility] goal 1: Pt to have improved functional activitities with UEFS score >50/80 [facility] goal 2: Pt to demonstrate 135deg AROM shoulder flexion to improve ability to reach into cupboards-[facility] terminal gauger supervisor goal 3: Pt to demonstrate 4/5 shoulder horizontal abd strength to improve ADLs and posture.-[facility] Treatment Pain: 2 Time In: 11:15 Time Out : 11:55 Timed Code Treatment Minutes: 40 Minutes Total Treatment Time: 40 Minutes Quynh Worthington, PT Date: 07/03/2020 documented in this encounter* Alisia Sapp - 07/15/2020 11:15 AM EDT Images from the original note were not included. [facility] Out[facility] Therapy Daily Note Date: 07/15/2020 Patient Name: Tony Starks : 1945 (75 y.o.) Referring Practitioner: Dr. Pretty Ames Referral Date : 05/23/20 Diagnosis: R shoulder scope, LHB debridment, SAD, RCR Treatment Diagnosis: R shoulder pain s/p RTC sx Onset Date: 05/09/20 PT Insurance Information: [facility] Total # of Visits Approved: 18 [...] increase PROM R shld flexion 145 degrees-[facility] Goals - Time Frame for [facility] goals : 18 visits [facility] goal 1: Pt to have improved functional activitities with UEFS score >50/80-[facility] terminal gauger supervisor goal 2: Pt to demonstrate 135deg AROM shoulder flexion to improve ability to reach into cupboards-[facility] terminal gauger supervisor goal 3: Pt to demonstrate 4/5 shoulder horizontal abd strength to improve ADLs and posture.-[facility] Treatment Pain: 0/10 Time In: 1115 Time Out : 1154 Timed Code Treatment Minutes: 39 Minutes Total Treatment Time: 39 Minutes Alisia Sapp,APPLIED EXERCISE PHYSIOLOGIST Date: 07/15/2020 documented in this encounter Reason for Referral Status Reason Specialty Diagnoses / Procedures Referre d By Contact Referred To Contact Closed Radiology Diagnoses Impingement syndrome of right shoulder Procedures MRI SHOULDER RIGHT WO CONTRAST Pretty Ames, DO [address] [place] [address] [facility] [address] [place] [address] Specialty Diagnoses / Procedures Referred By Contac t Referred To Contact Cardiology Diagnoses Pre-op testing Procedures EKG 12 Lead Back, MD Brian [address] [place] [id number] Referral ID Status Reason Start Date Expiration Date Visits Re quested Visits Authorized [id number] Open 04/20/2022 04/20/2023 1 1 Discharge Instructions [...] meditation. You may begin using Tylenol or [id number] Ibuprofen or Motrin for pain should you [...] from the original note were not included. [facility] Therapy Discharge Summary Patient: [...] RIGHT WO CONTRAST Pretty Ames DO [address] [place] [address] [facility] [address] [place] [address] Status Reason Specialty Diagnoses / Procedures Referre d By Contact Referred To Contact Diagnoses Unspecified rotator cuff tear or rupture of right shoulder, not specified as traumatic RIGHT SHOULDER ROTATOR CUFF TEAR....BICEP TENDONITIS Procedures CO SHLDR ARTHROSCOP,SURG,W/ROTAT CUFF REPR RIGHT SHOULDER ARTHROSCOPY PROBABLE ROTATOR CUFF REPAIR... LONG HEAD BICEPS TENODESIS Pretty Ames, DO [address] [place] [address] [facility] Reason Comments Follow-up Reason Onset Date Comments [...] Care Teams (unrecognized sec tion and content) Health And Safety Specialist Relationship Specialty Start Date End Date Daniel Pop DO [address] [place] [id number] PCP - General Family Medicine 11/24/16 Health And Safety Specialist Relationship Specialty Start Date End Date Daniel Pop DO [address] [place] [address] PCP - General Family Medicine 10/14/22 Laya Plata, HOTEL SERVICE SUPERVISOR [address] [place] [address] PCP - ACO Reach 01/04/24 Lyaa Plata, HOTEL SERVICE SUPERVISOR [address] [place] [address] Nurse Practitioner Family Medicine 10/14/22 Health And Safety Specialist Relationship Specialty Start Date End Date Daniel Pop DO [address] [place] [address] PCP - General Family Medicine 10/14/22 Laya Plata, HOTEL SERVICE SUPERVISOR [address] [place] [address] PCP - ACO Reach 01/04/24 Laya Plata, HOTEL SERVICE SUPERVISOR [address] [place] [address] Nurse Practitioner Family Medicine 10/14/22 Health And Safety Specialist Relationship Specialty Start Date End Date Daniel Pop DO [address] [place] [address] PCP - General Family Medicine 10/14/22 Laya Plata, HOTEL SERVICE SUPERVISOR [address] [place] [address] PCP - ACO Reach 01/04/24 Laya Plata, HOTEL SERVICE SUPERVISOR [address] [place], [place] [id number] Nurse Practitioner Family Medicine 10/14/22 Health And Safety Specialist Relationship Specialty Start Date End Date Daniel Pop DO [address] [place] [address] PCP - General Family Medicine 10/14/22 Laya Plata, HOTEL SERVICE SUPERVISOR [address] [place] [address] PCP - ACO Reach 01/04/24 Laya Plata, HOTEL SERVICE SUPERVISOR [address] [place] [address] Nurse Practitioner Family Medicine 10/14/22 Health And Safety Specialist Relationship Specialty Start Date End Date Daniel Pop DO [address] [place] [address] PCP - General Family Medicine 10/14/22 Laya Plata, HOTEL SERVICE SUPERVISOR [address] [place] [address] PCP - ACO Reach 01/04/24 Laya Plata, HOTEL SERVICE SUPERVISOR [address] [place] [address] Nurse Practitioner Family Medicine 10/14/22 (unrecognized sect ion and content) No Status Records FoundNo Status Records FoundNo Status Records FoundNo Status Records Found INFORMATION SOURCE (unrecogn ized section and content) DATE CREATED AUTHOR 04/29/2022 [facility] DATE CREATED AUTHOR AUTHOR'S ORGANIZ ATION 02/03/2023 [facility] DATE CREATED AUTHOR AUTHOR'S ORGANIZ ATION 06/19/2023 [facility] DATE CREATED AUTHOR AUTHOR'S ORGANIZ ATION 01/18/2024 [facility] FOR RECORDS PERTAINING TO PATIENTS WHO ARE [...] BE BASED ON THE PRIMARY CLINICAL RECORDS. [facility] [employer] [facility]. provides no warranty or guarantee of the accuracy or completeness of information in this document.
[2024-02-22 09:24] LABS: Glucometer 150 mg/dL (74-106)
[2024-02-22 09:26] VITALS: BP 128/69; PULSE 58; TEMP 36.2; O2SAT 96
[2024-02-22 10:26] VITALS: BP 154/65; PULSE 56; O2SAT 94
[2024-02-22 10:27] VITALS: BP 145/63; PULSE 56; O2SAT 94
[2024-02-22] MEDS: BUPIVACAINE HCL 0.25% PF 25 MG/10 ML VIAL 2 ML INJ (10:30)
--- NOTE | 2024-02-22 10:35 | W.PM.PROCNOT ---
Date of procedure: 02/22/24 Pre-op diagnosis: Right Superior gluteal neuritis Post-op diagnosis: same as pre-op Procedure: Right Superior gluteal nerve block, diagnostic Performed under fluoroscopic guidance Immediate complications none Anesthesia: none Solution used for injection: In each syringe, 2 milliliters 0.25% Marcaine 2.5 mL is used for injection for each side Time out process compliant After informed consent obtained patient was brought to the procedure room placed in the prone position skin overlying the area was prepped and draped in a sterile fashion using betadine. 25 gauge spinal needle Insert over each of the target areas identified in fluoroscopy corresponding needles were advanced Under fluoroscopic guidance until the target/targets encountered, no indication of intravascular or Intraneuronal needle tip placement. Solution injected.needles removed post procedurally. patient transferred to recovery room in stable condition to be discharged home after meeting criteria Anesthesia: Local Surgeon: Dipesh Osman Condition: stable
== END 2024-02-22 10:38 | disposition home or self-care (01) ==
LOC: SURGOUT 08:52
PROVIDERS: Visit Provider Anesthesiology Pain Medicine
DX: G57.81 Other specified mononeuropathies of right lower limb (principal); E11.9 Type 2 diabetes mellitus without complications; Z79.4 Long term (current) use of insulin
CPT/HCPCS: 36415; 64450; 82948; J0665

== ENCOUNTER 2024-03-01 09:49 | Outpatient (OUT) | payer MEDICARE, OTHER, SELFPAY ==
--- OUTSIDE RECORDS SUMMARY | 2024-03-01 10:04 | XMS_ITS | CCD ---
Author Organization [facility] Care Team Providers Care Deputy Sheriff/Investigator Name Role Phone Daniel Pop Primary Care Provider [phone] KESHAWN, DR OTF Villatoro Consult[employer] Unavailable JOO, [...] Daniel Pop DO Primary Care Provider Jay TELLERS SUPERVISOR, Laya L Unavailable Jay TELLERS SUPERVISOR, Laya L Unavailable POCPRETTY WORKMAN Attending [...] mellitus with other specified complication, unspecified whether assisted insulin use (CMS/HCC) Inject 34 Units under [...] meq/ml oral solution (1 source) Start: 04-20-2022 eghgvc-tcgucffjz-wjy sulfate (SUPREP BOWEL PREP KIT) 17.5-3.13-1.6 GM/177ML [...] 10-19-2022 10-19-2022 Chronic Other aftercare (1 source) manager intermediate (current) use of insulin; Translations: [RETIREMENT CURRENT USE OF INSULIN] Onset: 04-13-2022 Episodic [...] Panel InformationOrdered By: Birgit Hernandez on 01-10-2024 [facility] XR CERVICAL SPINE (4-5 VIEWS )on 03-01-2023 [...] Noonan Jr., MD 03/01/23 Final result Normal [facility] XR SHOULDER LEFT (MIN 2 VIEW [...] Noonan Jr., MD 03/01/23 Final result Normal [facility] EKG 12 Leadon 04-20-2022 Atrial Rate 60 BPM [employer] Work Phone: P [place] 40 degrees [employer] Work Phone: P-R Interval 198 ms [employer] Phone: Q-T Interval 396 ms [employer] Phone: QRS Duration 96 ms [employer] Work Phone: QTc Calculation (Bazett) 396 ms [employer] Work Phone: R [place] 60 degrees [employer] Work Phone: T [place] 17 degrees [employer] Phone: Ventricular Rate 60 BPM [employer] Phone: Normal sinus rhythm Minimal voltage criteria for LVH, may be normal variant ( Sokolow-Ashby ) Borderline ECG [facility] Brian Mckeon MD - 04/20/2022 Normal sinus rhythm Minimal voltage criteria for LVH, may be normal variant ( Sokolow-Ashby ) Borderline ECG [employer] Work Phone: [employer] Work Phone: POINT OF CARE GLUCOSEon Glucose [Mass/Vol] 177 mg/dL Critically high 74-106 T [facility] Comment on above: Performed By: #### P OCGLUC #### [facility] [address] [address] [address] Spencer Zabala COVID-19on 05-09-2020 SARS-CoV-2, Rapid Not Detected Not Detected [place], [place] Comment on above: Rapid NAAT: The [...] management decisions. Fact sheet for Healthcare Providers: https://www.fda.gov/media/381938/download Fact sheet for Patients: https://www.fda.gov/media/389204/download Methodology: Isothermal Nucleic Acid Amplification Source .THROAT [place], [place] Glucose, Whole Bloodon 05-09 Glucose [Mass/Vol] 83 mg/dL 65 - 99 mg/dL [place] Glucose [Mass/Vol] 99 mg/dL 65 - 99 mg/dL [place] Otheron 05-09-2020 SARS-CoV-2 [place], [place] Basic Metabolic Panelon 04-06 Anion gap [Moles/Vol] 9 mmol/L 9 - 17 mmol/L [place] Bun/Cre Ratio 20 [place] Calcium [Mass/Vol] 10.6 mg/dL High 8.6 - 10. 4 mg/dL [place] Chloride [Moles/Vol] 99 mmol/L 98 - 10 7 mmol/L [place] CO2 [Moles/Vol] 26 mmol/L 20 - 31 mmol/L [place] Creatinine [Mass/Vol] 1.26 mg/dL High 0.7 - 1.2 mg/dL [place] GFR >60 >60 mL/min [place] GFR Non- 56 mL/min Low >60 [place] GFR/1.73 sq M predicted among non-blacks MDRD (S/P/Bld) [Vol rate/Area] [place] Comment on above: Average GFR for 70 o r more years old: 75 mL/min/1.73sq m Chronic Kidney Disease: <60 mL/min/1.73sq m Kidney failure: <15 mL/min/1.73sq m eGFR calculated using average adult body mass. Additional eGFR calculator available at: http://www.[employer]/multiple_crcl_2012.htm GFR/1.73 sq M predicted among non-blacks MDRD (S/P/Bld) [Vol rate/Area] NOT REPORTED [place] Glucose [Mass/Vol] 155 mg/dL High 70 - 99 mg/dL [place] Interpretation and review of laboratory results Abnormal [place] Potassium [Moles/Vol] 4.5 mmol/L 3.7 - 5.3 mmol/L [place] Sodium [Moles/Vol] 134 mmol/L Low 135 - 144 mmol/L [place] Urea nitrogen [Mass/Vol] 25 mg/dL High 8 - 23 mg/dL [place] CBC Auto Differentialon 04-06 Basophils (Bld) [#/Vol] 0.00 10*3/uL [place] Basophils/100 WBC (Bld) 0 % 0 - 2 % [place] Differential Type YES [place] Eosinophils (Bld) [#/Vol] 0.20 10*3/uL [place] Eosinophils/100 WBC (Bld) 3 % 0 - 5 % [place] Erythrocyte distribution width (RBC) [Ratio] 14.2 % 12.1 - 15.2 % [place] Hematocrit (Bld) [Volume fraction] 43.0 % 41 - 53 % [place] Hemoglobin (Bld) [Mass/Vol] 14.6 g/dL 13.5 - 17.5 g/dL [place] Lymphocytes (Bld) [#/Vol] 1.70 10*3/uL [place] Lymphocytes/100 WBC (Bld) 23 % 13 - 44 % [place] MCH (RBC) [Entitic mass] 30.9 pg 26 - 34 pg [place] MCHC (RBC) [Mass/Vol] 33.9 g/dL 31 - 37 g/dL [place] MCV (RBC) [Entitic vol] 91.1 fL 80 - 100 fL [place] Monocytes (Bld) [#/Vol] 0.70 10*3/uL [place] Monocytes/100 WBC (Bld) 9 % 5 - 9 % [place] Platelet mean volume (Bld) [Entitic vol] NOT REPORTED 6 - 12 fL [place] Platelets (Bld) [#/Vol] 237 10*3/uL [place] Platelets (Bld) [#/Vol] NOT REPORTED [place] RBC (Bld) [#/Vol] 4.73 10*6/uL 4.5 - 5.9 m/uL [place] RBC morphology finding Nom (Bld) NOT REPORTED [place] Segmented neutrophils/100 WBC (Bld) 65 % 39 - 75 % [place] Segs Absolute 4.90 [place] WBC (Bld) [#/Vol] NOT REPORTED per 100 WBC [place] WBC (Bld) [#/Vol] 7.6 10*3/uL [place] WBC Morphology NOT REPORTED [place] Otheron 05-02-2020 Immature granulocytes (Bld) [#/Vol] NOT REPORTED [place] XR CHEST (2 VW)on 05-02-2020 Likely mild symmetri c emphysematous overinflation. No acute changes. [place] EXAM: XR CHEST (2 VW ) HISTORY: Reason for exam:->Pre-op for rt shoulder scope. COMPARISON: None. TECHNIQUE: 2 views chest. FINDINGS: Likely mild emphysematous overinflation. Heart size normal. Lungs clear. [place] [facility], [facility] Incoming Radiant Results From [facility] - 05/02/2020 1:56 PM EST EXAM: XR CHEST (2 VW) HISTORY: Reason for exam:->Pre-op for rt shoulder scope. COMPARISON: None. TECHNIQUE: 2 views chest. FINDINGS: Likely mild emphysematous overinflation. Heart size normal. Lungs clear. IMPRESSION: Likely mild symmetric emphysematous overinflation. No acute changes. [facility] [place], [place] MRI SHOULDER RIGHT WO LIT[address]Y [address] [...] clinical follow up to assess for stability. [facility] [place] CLINICAL HISTORY: Impingement syndrome of right [...] glenohumeral joint, with small inferior marginal osteophytes. [facility] [place], [place] [facility], pn Incoming Radiant Results From [facility] - 04/24/2020 12:20 PM EST CLINICAL HISTORY: [...] clinical follow up to assess for stability. [facility] [place] XR SHOULDER RIGHT (MIN 2 VIE WS)on 02-23-2020 Moderate degenerativ e changes at the acromioclavicular joint with undersurface spurring measuring 7 mm, which could contribute to outlet impingement. [facility] [place] EXAM: XR SHOULDER RIGHT (MIN 2 VIEWS). HISTORY: M19.011. 74-year-old male, right shoulder pain, arthritis right shoulder region. COMPARISON: None. TECHNIQUE: 3 views right shoulder FINDINGS: Moderate osteoarthritic change acromioclavicular joint with undersurface spurring. Minimal degenerative narrowing at the glenohumeral joint. [facility] [place] [facility], [facility] Incoming Radiant Results From [facility] - 02/23/2020 4:11 PM EST EXAM: XR [...] mm, which could contribute to outlet impingement. [facility], [place] Vital Signs Date Time Vital Sign Value Performing Clinician Facility 01-17-2024 10:30-0400 Body height 175.3 cm Laya Plata TELLERS SUPERVISOR Work Phone: [facility] 01-17-2024 10:30-0400 Body mass index (BMI) [Ratio] 25.08 kg/m2 Laya Jayline TELLERS SUPERVISOR Work Phone: [facility] 01-17-2024 10:30-0400 Body temperature 97.81 [degF] Laya Rine TELLERS SUPERVISOR Work Phone: [facility] 01-17-2024 10:30-0400 Body weight 77.02 kg Laya Jayline TELLERS SUPERVISOR Work Phone: [facility] 01-17-2024 10:30-0400 Diastolic blood pressure 78 mm[Hg] Laya Jayline TELLERS SUPERVISOR Work Phone: [facility] 01-17-2024 10:30-0400 Heart rate 70 /min Laya Jayline TELLERS SUPERVISOR Work Phone: [facility] 01-17-2024 10:30-0400 Respiratory rate 18 /min Laya Rine TELLERS SUPERVISOR Work Phone: [facility] 01-17-2024 10:30-0400 SaO2% (BldA) [Mass fraction] 96 % Laya Rine TELLERS SUPERVISOR Work Phone: [facility] 01-17-2024 10:30-0400 Systolic blood pressure 138 mm[Hg] Laya Rine TELLERS SUPERVISOR Work Phone: [facility] 05-09-2020 15:35-0500 BP Diastolic 58 mm[Hg] [place] 05-09-2020 15:35-0500 BP Systolic 113 mm[Hg] [place] 05-09-2020 15:35-0500 Pulse (Heart Rate) 60 /min [place] 05-09-2020 15:35-0500 Pulse Oximetry 96 % [place] 05-09-2020 15:35-0500 Respiratory Rate 18 /min [place] 05-09-2020 15:05-0500 Body Temperature 96.49 [degF] [place] 05-09-2020 10:31-0500 BMI (Body Mass Index) 26.09 kg/m2 [place] 05-09-2020 10:31-0500 Body weight 76.7 kg [place] 05-09-2020 10:31-0500 Height 171.5 cm [place] Encounters Encounter Date Encounter Type Care Provider Facility Start: 01-17-2024 End: 01-17-2024 Bamboo flowsheet Laya L Rine TELLERS SUPERVISOR Work Phone: [facility] Start: 01-17-2024 End: 01-17-2024 Bamboo flowsheet Laya L Rine TELLERS SUPERVISOR Work Phone: [facility] Start: 01-17-2024 End: 01-17-2024 Office outpatient visit 25 minutes Laya L Rine TELLERS SUPERVISOR Work Phone: [facility] Comment on above: Type 2 diabetes carmen itus with complication (CMS/HCC) (Primary Dx); Stage 3a chronic kidney disease (HCC) (CMS/HCC); Type 2 diabetes mellitus with hyperglycemia (CMS/HCC); Mixed hyperlipidemia (CMS/HCC) Start: 01-17-2024 End: 01-17-2024 ambulatory LAYA L RINE Not Available Start: 01-16-2024 End: 01-17-2024 Refill Laya Plata TELLERS SUPERVISOR Work Phone: [facility] Comment on above: Primary hypertension (CMS/HCC) Start: 01-10-2024 End: 01-10-2024 Bamboo flowsheet Nicol Salgado PA Work Phone: [facility] Start: 01-10-2024 End: 01-10-2024 Bamboo flowsheet Nicolirene Salgado PA Work Phone: [facility] Start: 01-10-2024 End: 01-10-2024 Telephone encounter Laya Plata TELLERS SUPERVISOR Work Phone: [facility] Comment [...] Not Available Start: 06-15-2023 End: 06-18-2023 ambulatory [facility] Start: 05-21-2023 End: 05-21-2023 ambulatory LAYA L RINE Not Available Start: 04-12-2023 End: 04-12-2023 ambulatory NICOL SALGADO Not Available Start: 04-02-2023 End: 04-02-2023 ambulatory PRETTY Tierney POCOS Not Available Start: 03-05-2023 End: 03-05-2023 ambulatory PRETTY Tierney POCOS Not Available Start: 03-01-2023 End: 03-04-2023 ambulatory DANIEL POP [facility] Start: 02-01-2023 End: 02-02-2023 ambulatory Ponce [...] by physician Daniel Pop DO Work Phone: [facility] Start: 07-15-2020 End: 07-15-2020 Subsequent hospital [...] hospital [facility] Comment on above: Impingement syndrome of [...] Subsequent hospital visit by physician Rosalino Singh [facility] Comment on above: Arrived Start: 04-01-2020 End: 04-01-2020 Subsequent hospital visit by physician Rosalino [facility] Comment on above: Arrived Start: 03-27-2020 End: 03-27-2020 Subsequent hospital visit by physician Jessica Albardao Work Phone: [facility] Comment on above: Arrived Start: 03-26-2020 End: 03-26-2020 Subsequent hospital visit by physician Danay Can [facility] Comment on above: Arrived Start: 03-21-2020 End: 03-21-2020 Subsequent hospital visit by physician Rosalino Singh [facility] Comment on above: Arrived Start: 03-19-2020 End: 03-19-2020 Subsequent hospital visit by physician Danay Can [facility] Comment on above: Arrived Start: 02-23-2020 End: 02-25-2020 Subsequent hospital visit by physician Anderson [facility] Comment on above: Arthritis of right s [place] region Start: 12-20-2018 End: 12-22-2018 Subsequent hospital visit by physician Daniel Pop [facility] Procedures Date Procedure Procedure Detail Performing [...] Basic metabolic pane l calcium total [employer] [facility] Work Phone: Start: 05-02-2020 Blood count complete auto&auto difrntl wbc [facility] Work Phone: Start: 04-24-2020 Mri any jt upper ext remity w/o contrast matrl [facility] [place] Work Phone: Start: 02-23-2020 Radex shoulder compl ete minimum 2 views Daniel Pop Work Phone: Plan of Treatment Date Care Activity Detail Author Start: 01-11-2025 Urine screening for protein Diabetes: Urine Protein Screening [facility] Start: 05-08-2024 End: 05-08-2024 Patient encounter procedure 05/08/2024 11:00 AM EST Of fice Visit [facility] [address] [place] [address] Laya Plata, TELLERS SUPERVISOR [address] [place] [address] [facility] Start: 04-14-2024 End: 04-14-2024 Patient encounter procedure 04/14/2024 10:40 AM EST Of fice Visit [facility] [address] [place] [address] Nicol Salgado, PA [address] [place] [address] [facility] Start: 04-13-2024 Hemoglobin A1c measurement Diabetes: Hemoglobin A1C [facility] Start: 03-13-2024 Influenza vaccination Influenza Vaccine (#1) [facility] Comment on above: Postponed from 12/05/2023 (Patient Refus ed) Start: 01-17-2024 End: 01-17-2024 Patient encounter procedure [facility] Comment on above: Type 2 diabetes mellitus with complicati on (CMS/HCC) (Primary Dx); Stage 3a chronic kidney disease (HCC) ([facility]/HCC) Start: 01-10-2024 End: 01-10-2024 Patient encounter procedure 01/10/2024 10:30 AM EDT Of fice Visit [facility] [address] [place] [address] Nicol Salgado PA [address] [place] [address] Arrived [facility] Comment on above: Arrived Start: 12-16-2023 Hemoglobin A1c measurement Diabetes: Hemoglobin A1C [facility] Start: 12-11-2023 Glaucoma screening Diabetes: Retinopathy Screening [facility] Start: 12-05-2023 Influenza vaccination Influenza Vaccine (#1) [facility] Start: 08-12-2022 Urine screening for protein Diabetes: Urine Protein Screening [facility] Start: 05-04-2022 End: 05-04-2022 Admission to same day surgery center 05/04/2022 Surgery IP Unit Back, MD Brian [address] [place] [address] COLONOSCOPY [facility] Comment on [...] Encounter IP Unit Mike, MD Brian [address] [place] [address] [facility] Start: 05-02-2021 Creatinine measurement Creatinine monitoring [facility] [place] Start: 05-02-2021 Potassium monitoring Potassium monitoring [facility] [place] Start: 08-13-2020 COVID-19 Vaccine (2 - Booster for Hermila series) COVID-19 Vaccine (2 - Booster for Hermila series) [facility] Start: 07-11-2020 End: 07-11-2020 Appointment [facility] [...] Physical Therapy Start: 06-03-2020 [facility] En[facility] Al[facility] Rojas [facility] Start: 05-31-2020 Hospital Encounter 05/31/2020 [facility] Alisia Rojas [facility] Start: [...] Appointment 04/09/2020 Appointment Physical Therapy Rosalino Singh ELEMENTARY SPANISH TEACHER [facility] Start: 04-03-2020 End: 04-03-2020 Appointment 04/03/2020 Appointment Physical Therapy Rosalino Singh ELEMENTARY SPANISH TE[employer] [facility] Start: 04-01-2020 End: 04-01-2020 Appointment 04/01/2020 Appointment Physical Therapy Rosalino Singh ELEMENTARY SPANISH TEACHER [facility] Start: 03-27-2020 End: 03-27-2020 Appointment 03/27/2020 Appointment Physical Therapy Jessica Albarado, PT [address] [place] [address] [phone] [facility] Start: 03-26-2020 End: 03-26-2020 Appointment 03/26/2020 Appointment Physical Therapy Danay Can, PT [facility] Start: 03-21-2020 End: 03-21-2020 Appointment 03/21/2020 Appointment Physical Therapy Rosalino Singh ELEMENTARY SPANISH TE[employer]ER [facility] Start: 12-01-2019 Colon cancer screen colonoscopy Colon cancer screen colonoscopy [place] Start: 12-04-2018 Influenza vaccination Flu vaccine (#1) [place] Start: 09-22-2018 Annual Wellness Visit (AWV) Annual Wellness Visit (AWV) [facility] Start: 03-02-2018 Pneumococcal 65+ years Vaccine (2 of 2 - PCV13) Pneumococcal 65+ years Vaccine (2 of 2 - PCV13) [place] Start: 06-22-1993 Shingles Vaccine (1 of 2) Shingles Vaccine (1 of 2) [facility] Start: 06-22-1962 DTaP/Tdap/Td vaccine (1 - Tdap) DTaP/Tdap/Td vaccine (1 - Tdap) [facility] Start: 06-22-1961 Hepatitis C screening Hepatitis C screen [facility] Start: 1959 COVID-19 Vaccine (1 of 2) COVID-19 Vaccine (1 of 2) [place] Start: 1959 COVID-19 Vaccine (1) COVID-19 Vaccine (1) [facility] Work Phone: Start: 1955 Depression Screen Depression Screen [facility] Start: 06-22-1953 [object Object] Diabetic foot exam [place], [place] Start: 06-22-1953 A1C test (Diabetic or Prediabetic) A1C test (Diabetic or Prediabetic) [place] Start: 06-22-1953 Diabetic retinal exam Diabetic retinal exam [place] Start: 06-22-1953 Lipid panel [facility] Start: 06-22-1953 Lipid screen Lipid screen [place], [place] Start: 1943 AAA screen AAA screen [place], [place] Start: 1943 Creatinine measurement Creatinine monitoring [place], [place] Start: 1943 Creatinine monitoring Creatinine monitoring [place], [place] Start: 1943 Hepatitis C screening Hepatitis C screen [place], [place] Start: 1943 Potassium monitoring Potassium monitoring [place] Oxygen therapy [[facility]] Initiate Oxygen Therapy Protocol Respiratory Care Routine Daily until discontinued starting 05/09/2020 [place] Comment on above: Daily until discontinued starting 2020 End: 05-09-2020 POCT glucose POCT glucose Point of Care Testing Routine One Time for 1 Occurrences starting 05/09/2020 until 05/09/2020 [place] Comment on above: One Time for 1 Occurrences starting 07/2020 until 05/09/2020 Immunizations Immunization Date Immunization Notes Care Provider [facility] 03-03-2022 Influenza, High-dose Seasonal, Quadrivalent, Preservative Free Nicol TURPIN Work Phone: [facility] 03-03-2022 influenza virus vacc ine, unspecified formulation Nicol TURPIN Work Phone: [facility] 01-01-2021 Influenza, High-dose Seasonal, Quadrivalent, Preservative Free Nicol TURPIN Work Phone: [facility] 02-22-2020 influenza, injectabl e, quadrivalent, preservative free Nicol Naomi PA Work Phone: [facility] 04-25-2019 Seasonal trivalent influenza vaccine, adjuvanted, preservative free Nicol Naomi PA Work Phone: [facility] 03-02-2018 influenza, high dose seasonal, preservative-free Nicol Naomi PA Work Phone: [facility] 03-02-2017 pneumococcal polysaccharide vaccine, 23 valent Nicol Naomi PA Work Phone: [facility] 01-07-2017 influenza, high dose seasonal, preservative-free Nicol Naomi PA Work Phone: [facility] 01-03-2016 influenza, injectabl e, quadrivalent, contains preservative Nicol Naomi PA Work Phone: [facility] 03-11-2015 influenza, injectabl e, quadrivalent, preservative free Nicol Naomi PA Work Phone: [facility] 03-11-2015 pneumococcal conjuga te vaccine, 13 valent Nicol Naomi PA Work Phone: [facility] Payers Date Payer Category Payer Medicare MEDICARE MEDICAR E PART A AND B xxxxxxxxxx 2016-Present [phone] [address] [address] [place] [address] xxxxxxxxxx [id number] 2016 Private Health Insurance HUMANA HUMANA MEDICARE SUPP xxxxxxxxx 2016-Present [address] [address] [place] [address] [id number] 2015 Private Health Insurance 2008 Medicare 1959 Medicare [id number] 1959 Private Health Insurance [id number] .[id number] 1943 Unknown [id number] 2.16.840.1.081505.3.579.2 .593 1943 Unknown [id number] 2.16.840.1.043584.3.579.2 .593 1943 Unknown [id number] 2.16.840.1.424564.3.579.2 .593 1943 Unknown [id number] 2.16.840.1.983021.3.579.2 .593 1943 Unknown [id number] 2.16.840.1.703401.3.579.2 .593 1943 Unknown [id number] 2.16.840.1.490873.3.579.2 .196 1943 Unknown [id number] 2.16.840.1.551578.3.579.2 .174 1943 Unknown [id number] 2.16.840.1.247213.3.579.2 .174 1943 Unknown [id number] 2.16.840.1.922803.3.579.2 .174 1943 Unknown [id number] 2.16.840.1.994250.3.579.2 .174 1943 Unknown [id number] 2.16.840.1.264030.3.579.2 .1259 1943 Unknown [id number] 2.16.840.1.222883.3.579.2 .1259 1943 Unknown [id number] 2.16.840.1.534910.3.579.2 .1259 1943 Unknown [id number] 2.16.840.1.026656.3.579.2 .1259 1943 Unknown [id number] 2.16.840.1.006460.3.579.2 .1258 1943 Unknown [id number] 2.16.840.1.733760.3.579.2 .9 1943 Unknown [id number] 2.16.840.1.387019.3.579.2 .1258 1943 Unknown [id number] 2.16.840.1.742530.3.579.2 .1258 1943 Unknown [id number] 2.16.840.1.171948.3.579.2 .1258 1943 Unknown [id number] 2.16.840.1.825409.3.579.2 .1258 1943 Unknown [id number] 2.16.840.1.025800.3.579.2 .1259 Social History Date Type Detail Facility Start: 12-15-2016 End: 09-17-2023 Tobacco smoking status NHIS Former [place] Start: 02-06-1991 End: 11-30-2006 History of tobacco use Current smoker [place] Start: 02-06-1991 End: 11-30-2006 History of tobacco use Cigarette Smoker [place] End: 11-30-2006 History of tobacco use Pipe Smoker [place] Start: 12-15-2016 End: 04-20-2022 Tobacco use and exposure Former user [place] History of tobacco use Snuff User [place] History of tobacco use Chews Tobacco [place] Start: 12-15-2016 End: 01-17-2024 Alcohol intake Current drinker of alcohol (finding) [place] Start: 1945 Sex Assigned At Not on file [place] Exposure to SARS-CoV -2 (event) Not sure [place] Start: 12-15-2016 End: 01-18-2023 Alcohol intake Yes [facility] Start: 05-09-2020 End: 01-18-2023 Alcohol intake [facility] Start: 04-20-2022 History 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 No [facility] Do you belong to any clubs or organizations such as mosque groups, unions, [employer] or athletic groups, or school groups? Yes [...] Equipment Origin al Text Equipment Identifier Dates [place] [employer] [id number] Mm Tiana Wiggins [id number] Start: 05-09-2020 [id number] Start: 04-20-2023 Clinical Notes 07-16-2021 to 01-17-2024 Laya Plata NP - 01/17/2024 10:30 AM EDTPatient InstructionsTelephone Encounter - Laya Plata NP - 01/10/2024 11:24 AM EDTTelephone Encounter - Laya Plata, TELLERS SUPERVISOR - 01/10/2024 11:24 AM EDT Note [...] 25 mg, Oral, Every morning [employer] 32G X 4 MM misc Inject under [...] REPAIR COLONOSCOPY 2010 KNEE SURGERY Arthroscopy knee AR REPAIR OF NASAL SEPTUM nasal septoplasty to [...] him farxiga 10mg #28 samples, sent to [facility] for brenzavvy (sglt 2) rec [...] 3.5 mo . documented in this encounter [facility] 01-17-2024 Instructions Laya Plata NP - 01/17/2024 10:30 AM EDT Farxiga 10mg per day with samples for now Brenzavvy is the new medication, one daily from the [facility] pharmacy Call if any issues getting this Check aic again in 3 mo documented in this encounter [facility] 01-10-2024 Telephone encount er Note Sent as requested [facility] 01-10-2024 Miscellaneous Notes Formattin g of this note might be different from the original. Sent as requested Refill Atorvastatin 40mg --med loaded [facility] documented in this encounter [facility] 01-10-2024 Telephone encount er Note Refill Atorvastatin 40mg --med loaded [facility] 01-10-2024 History of Presen t illness Narrative [...] limited to risks of scarring, darker or detective investigator pigmentary changes, recurrence, incomplete removal and infection. [...] Visit: as scheduled documented in this encounter [facility] 04-23-2022 Note CONSULTATION CONSULTATION DATE: 04/23/2022 HISTORY [...] will contact the office as needed. [facility] 03-19-2022 Note CONSULTATION CONSULTATION DATE: 03/19/2022 [...] followed up in the clinic thereafter. [facility] 07-22-2021 Note OPERATIVE NOTE OPERATION DATE:07/22/2021 [...] Will be followed up in the office. [facility] Signed and Approved by: DR ABNER WASHINGTON . 07/29/2021 12:16:00 [facility] 07-16-2021 Note PROCEDURE: XR SHOULD ER [...] by: OTF LIAO Date: 2021-07-16 15:31 [facility] 07-16-2021 Note CONSULTATION PAIN MANAGEMENT CONSULTATION [...] get him in next week with Dr. Washingtno, with the anticipation of a possible intra-articular left shoulder steroid injection. Patient and agree with plan of care and all questions answered. [facility] Signed and Approved by: JESSE WOOD . 07/17/2021 16:20:00 [facility] Evaluation note Diagnosis Pre-op testing Preoperative examination, unspecified Screening for colon cancer Special screening for malignant neoplasms, colon [facility]: evaluation note* Diagnosis Actinic keratosis- Primary documented in this encounter [facility] HealthcareEvaluation note* Diagnosis Mixed hyperlipidemia (CMS/HCC) Mixed hyperlipidemia documented in this encounter [facility] HealthcareEvaluation note* Diagnosis Primary hypertension (CMS/HCC) Unspecified essential hypertension Type 2 diabetes mellitus with complication (CMS/HCC)- Primary Stage 3a chronic kidney disease (HCC) (CMS/HCC) documented in this encounter [facility] HealthcareEvaluation note* Diagnosis Type 2 diabetes mellitus with complication (CMS/HCC)- Primary Stage 3a chronic kidney disease (HCC) ([facility]/HCC) Type 2 diabetes mellitus with hyperglycemia ([facility]/HCC) Mixed hyperlipidemia ([facility]) Mixed hyperlipidemia documented in this [...] Documents on File Type Date Recorded Patient Ladle Patcher Expl anation ACP-Advance Directive ACP-Power of Tax Technician Latest Code Status on File Code Status Date Activated Date Inactivated Comments Full Code 11/30/2016 6:33 AM 11/30/2016 11:59 AM Documents on File Type Date Recorded Patient Ladle Patcher Expl anation ACP-Advance Directive ACP-Power of Tax Technician Latest Code Status on File Code Status [...] Documents on File Type Date Recorded Patient Ladle Patcher Expl anation Advance Directives and Living Will Power of Tax Technician Healthcare Agents on File Name Relationship Healthcare Agent [facility] calvin Dominguezcarolyn Starks Spouse Primary Decision Maker Documents on File Type Date Recorded Patient Ladle Patcher Expl anation Advance Directives and Livin g Will [id number] History of Present Illness * Danay Can, PT - 03/19/2020 8:30 AM EST [facility] Evaluation Date: 03/19/2020 Patient: Tony Starks : 1945 Referring Practitioner: Dr. Pretty Ames Referral Date : 03/14/20 Diagnosis: R shoulder IS, AC, OA Treatment Diagnosis: R shoulder pain Onset Date: 03/14/20 PT Insurance Information: [facility] Total # of Visits Approved: 18 [...] 45deg of IR to improve dressing kenrick. half-way goals Time Frame for manager intermediate goals : 15 visits(POC Exp 04/30/19) manager intermediate goal 1: Pt to score >51/80 on UEFS to improve ADL kenrick half-way goal 2: Pt to have ER of 55deg to improve upper body dressing. manager intermediate goal 3: Pt to have 4/5 Horiz ABD strength to improve pt posture. half-way goal 4: Pt to have 4/5 ER strength without pain to improve ADL kenrick. Patient's Goal: Patient goals : Relieve his shoulder pain so he can complete ADLs and hobbies Timed Code Treatment Minutes: 0 Minutes Total Treatment Time: 45 Time In: 0835 Time Out: 09 Danay Can, PT Date: 03/19/2020 documented in this encounter* Rosalino Singh, ELEMENTARY SPANISH TEACHER - 03/21/2020 10:30 AM EST [facility] Daily Note Date: 03/21/2020 Patient Name: Tony Starks : 1945 (74 y.o.) Referring Practitioner: Dr. Pretty Ames Referral Date : 03/14/20 Diagnosis: R shoulder IS, AC, OA Treatment Diagnosis: R shoulder pain Onset Date: 03/14/20 PT Insurance Information: [facility] Total # of Visits Approved: 18 [...] kenrick. Snf Goals - Time Frame for manager intermediate goals : 15 visits(POC Exp 04/30/19) half-way goal 1: Pt to score >51/80 on UEFS to improve ADL kenrick half-way goal 2: Pt to have ER of 55deg to improve upper body dressing. half-way goal 3: Pt to have 4/5 Horiz ABD strength to improve pt posture. half-way goal 4: Pt to have 4/5 ER strength without pain to improve ADL kenrick. Post Treatment Pain: 05/15 Time In: 1030 Time Out : 1110 Timed Code Treatment Minutes: 40 Minutes Total Treatment Time: 40 Minutes Rosalino Singh PTA Date: 03/21/2020 documented in this encounter* Danay Can, PT - 03/26/2020 10:15 AM EST [facility] Daily Note Date: 03/26/2020 Patient Name: Tony Starks : 1945 (74 y.o.) Referring Practitioner: Dr. Pretty Ames Referral Date : 03/14/20 Diagnosis: R shoulder IS, AC, OA Treatment Diagnosis: R shoulder pain Onset Date: 03/14/20 PT Insurance Information: [facility] Total # of Visits Approved: 18 [...] 45deg of IR to improve dressing kenrick. Porcelain Turner Goals - Time Frame for half-way goals : 15 visits(POC Exp 04/30/19) manager intermediate goal 1: Pt to score >51/80 on UEFS to improve ADL kenrick manager intermediate goal 2: Pt to have ER of 55deg to improve upper body dressing. half-way goal 3: Pt to have 4/5 Horiz ABD strength to improve pt posture. manager intermediate goal 4: Pt to have 4/5 ER strength without pain to improve ADL kenrick. Post Treatment Pain: 04/14 Time In: 1019 Time Out: 1059 Timed Code Treatment Minutes: 40 Minutes Total Treatment Time: 40 Minutes Danay Can, PT Date: 03/26/2020 documented in this encounter* Jessica Albarado, PT - 03/27/2020 2:30 PM EST [facility] Daily Note Date: 03/27/2020 Patient Name: Tony Starks : 1945 (74 y.o.) Referring Practitioner: Dr. Pretty Ames Referral Date : 03/14/20 Diagnosis: R shoulder IS, AC, OA Treatment Diagnosis: R shoulder pain Onset Date: 03/14/20 PT Insurance Information: [facility] Total # of Visits Approved: 18 [...] kenrick. Snf Goals - Time Frame for half-way goals : 15 visits(POC Exp 04/30/19) manager intermediate goal 1: Pt to score >51/80 on UEFS to improve ADL kenrick manager intermediate goal 2: Pt to have ER of 55deg to improve upper body dressing. half-way goal 3: Pt to have 4/5 Horiz ABD strength to improve pt posture. manager intermediate goal 4: Pt to have 4/5 ER strength without pain to improve ADL kenrick. Post Treatment Pain: 05/15 Time In: 1440 Time Out : 1525 Timed Code Treatment Minutes: 40 Minutes Total Treatment Time: 40 Minutes JESSICA ALBARADO PT Date: 03/27/2020 documented in this encounter* Rosalino Singh, ELEMENTARY SPANISH TEACHER - 04/09/2020 10:30 AM EST [facility] Daily Note Date: 04/09/2020 Patient Name: Tony Starks : 1945 (74 y.o.) Referring Practitioner: Dr. Pretty Ames Referral Date : 03/14/20 Diagnosis: R shoulder IS, AC, OA Treatment Diagnosis: R shoulder pain Onset Date: 03/14/20 PT Insurance Information: [facility] Total # of Visits Approved: 18 [...] IR to improve dressing kenrick. - MET Porcelain Turner Goals - Time Frame for half-way goals : 15 visits(POC Exp 04/30/19) half-way goal 1: Pt to score >51/80 on UEFS to improve ADL kenrick half-way goal 2: Pt to have ER of 55deg to improve upper body dressing. - MET half-way goal 3: Pt to have 4/5 Horiz ABD strength to improve pt posture. half-way goal 4: Pt to have 4/5 ER strength without pain to improve ADL kenrick. Post Treatment Pain: 2-06/12 Time In: 1030 Time Out : 1115 Timed Code Treatment Minutes: 45 Minutes Total Treatment Time: 45 Minutes Rosalino Singh PTA Date: 04/09/2020 documented in this encounter* Danay Can, PT - 04/11/2020 10:30 AM EST [facility] Daily Note Date: 04/11/2020 Patient Name: Tony Starks : 1945 (74 y.o.) Referring Practitioner: Dr. Pretty Ames Referral Date : 03/14/20 Diagnosis: R shoulder IS, AC, OA Treatment Diagnosis: R shoulder pain Onset Date: 03/14/20 PT Insurance Information: [facility] Total # of Visits Approved: 18 [...] MET Snf Goals - Time Frame for half-way goals : 15 visits(POC Exp 04/30/19) manager intermediate goal 1: Pt to score >51/80 on UEFS to improve ADL kenrick half-way goal 2: Pt to have ER of 55deg to improve upper body dressing. - MET half-way goal 3: Pt to have 4/5 Horiz ABD strength to improve pt posture. manager intermediate goal 4: Pt to have 4/5 ER strength without pain to improve ADL kenrick. Post Treatment Pain: 2/10 Time In: 1030 Time Out : 1113 Timed Code Treatment Minutes: 43 Minutes Total Treatment Time: 43 Minutes Danay Can, BRUCE Date: 04/11/2020 documented in this encounter* Benitez Bobo - 04/15/2020 10:30 AM EST [facility] Progress Report Date: 04/15/2020 Patient: Tony Starks : 1945 Referring Practitioner: Dr. Pretty Ames Referral Date : 03/14/20 Diagnosis: R shoulder IS, AC, OA Treatment Diagnosis: R shoulder pain Onset Date: 03/14/20 PT Insurance Information: [facility] Total # of Visits Approved: 18 [...] IR to improve dressing kenrick. - MET half-way goals Time Frame for half-way goals : 15 visits(POC Exp 04/30/19) manager intermediate goal 1: Pt to score >51/80 on UEFS to improve ADL kenrick manager intermediate goal 2: Pt to have ER of 55deg to improve upper body dressing. - MET manager intermediate goal 3: Pt to have 4/5 Horiz ABD strength to improve pt posture. half-way goal 4: Pt to have 4/5 ER strength without pain to improve ADL kenrick. Benitez Bobo, PATRICKA/Directly Supervised By:Danay Can, PT Date: 04/15/2020 * Benitez Bobo - 04/15/2020 10:30 AM EST [facility] Daily Note Date: 04/15/2020 Patient Name: Tony Starks : 1945 (74 y.o.) Referring Practitioner: Dr. Pretty Ames Referral Date : 03/14/20 Diagnosis: R shoulder IS, AC, OA Treatment Diagnosis: R shoulder pain Onset Date: 03/14/20 PT Insurance Information: [facility] Total # of Visits Approved: 18 [...] IR to improve dressing kenrick. - MET Porcelain Turner Goals - Time Frame for manager intermediate goals : 15 visits(POC Exp 04/30/19) half-way goal 1: Pt to score >51/80 on UEFS to improve ADL kenrick manager intermediate goal 2: Pt to have ER of 55deg to improve upper body dressing. - MET half-way goal 3: Pt to have 4/5 Horiz ABD strength to improve pt posture. half-way goal 4: Pt to have 4/5 ER [...] Worthington, PT - 05/29/2020 11:00 AM EST [facility] Evaluation Date: 05/29/2020 Patient: Tony Starks : 1945 Referring Practitioner: Dr. Pretty Ames Referral Date : 05/23/20 Diagnosis: R shoulder scope, LHB debridment, SAD, RCR Treatment Diagnosis: R shoulder pain s/p RTC sx Onset Date: 05/09/20 PT Insurance Information: [facility] Total # of Visits Approved: 18 [...] increase PROM R shld flexion 145 degrees half-way goals Time Frame for half-way goals : 18 visits manager intermediate goal 1: Pt to have improved functional activitities with UEFS score >50/80 manager intermediate goal 2: Pt to demonstrate 135deg AROM shoulder flexion to improve ability to reach into cupboards manager intermediate goal 3: Pt to demonstrate 4/5 shoulder [...] Worthington, PT - 06/05/2020 10:30 AM EST [facility] Daily Note Date: 06/05/2020 Patient Name: Tony A Raudel : 1945 (74 y.o.) Referring Practitioner: Dr. Pretty Ames Referral Date : 05/23/20 Diagnosis: R shoulder scope, LHB debridment, SAD, RCR Treatment Diagnosis: R shoulder pain s/p RTC sx Onset Date: 05/09/20 PT Insurance Information: [facility] Total # of Visits Approved: 18 [...] increase PROM R shld flexion 145 degrees Porcelain Turner Goals - Time Frame for half-way goals : 18 visits manager intermediate goal 1: Pt to have improved functional activitities with UEFS score >50/80 half-way goal 2: Pt to demonstrate 135deg AROM shoulder flexion to improve ability to reach into cupboards half-way goal 3: Pt to demonstrate 4/5 shoulder horizontal abd strength to improve ADLs and posture. Post Treatment Pain: 05/15 Time In: 10:30 Time Out : 11:00 Timed Code Treatment Minutes: 30 Minutes Total Treatment Time: 30 Minutes Quynh Worthington, PT Date: 06/05/2020 documented in this encounter* Quynh Worthington, PT - 06/07/2020 11:15 AM EST [facility] Daily Note Date: 06/07/2020 Patient Name: Tony Starks : 1945 (74 y.o.) Referring Practitioner: Dr. Pretty Ames Referral Date : 05/23/20 Diagnosis: R shoulder scope, LHB debridment, SAD, RCR Treatment Diagnosis: R shoulder pain s/p RTC sx Onset Date: 05/09/20 PT Insurance Information: [facility] Total # of Visits Approved: 18 [...] degrees-Met Snf Goals - Time Frame for half-way goals : 18 visits manager intermediate goal 1: Pt to have improved functional activitities with UEFS score >50/80 half-way goal 2: Pt to demonstrate 135deg AROM shoulder flexion to improve ability to reach into cupboards manager intermediate goal 3: Pt to demonstrate 4/5 shoulder horizontal abd strength to improve ADLs and posture. Post Treatment Pain: 05/15 Time In: 11:15 Time Out : 11:45 Timed Code Treatment Minutes: 30 Minutes Total Treatment Time: 30 Minutes Quynh Worthington PT Date: 06/07/2020 documented in this encounter* Nathalie Burnham - 06/10/2020 10:30 AM EST Images from the original note were not included. [facility] Daily Note Date: 06/10/2020 Patient Name: Tony Starks : 1945 (74 y.o.) Referring Practitioner: Dr. Pretty Ames Referral Date : 05/23/20 Diagnosis: R shoulder scope, LHB debridment, SAD, RCR Treatment Diagnosis: R shoulder pain s/p RTC sx Onset Date: 05/09/20 PT Insurance Information: [facility] Total # of Visits Approved: 18 [...] increase PROM R shld flexion 145 degrees-Met Porcelain Turner Goals - Time Frame for half-way goals : 18 visits manager intermediate goal 1: Pt to have improved functional activitities with UEFS score >50/80 half-way goal 2: Pt to demonstrate 135deg AROM shoulder flexion to improve ability to reach into cupboards manager intermediate goal 3: Pt to demonstrate 4/5 shoulder horizontal abd strength to improve ADLs and posture. Post Treatment Pain: 05/15 Time In: 1030 Time Out : 1105 Timed Code Treatment Minutes: 35 Minutes Total Treatment Time: 35 Minutes Nathalie Burnham ELEMENTARY SPANISH TEACHER Date: 06/10/2020 documented in this encounter* Nathalie Burnham - 06/14/2020 11:15 AM EST Images from the original note were not included. [facility] Daily Note Date: 06/14/2020 Patient Name: Tony Starks : 1945 (74 y.o.) Referring Practitioner: Dr. Pretty Ames Referral Date : 05/23/20 Diagnosis: R shoulder scope, LHB debridment, SAD, RCR Treatment Diagnosis: R shoulder pain s/p RTC sx Onset Date: 05/09/20 PT Insurance Information: [facility] Total # of Visits Approved: 18 [...] increase PROM R shld flexion 145 degrees-Met Porcelain Turner Goals - Time Frame for half-way goals : 18 visits half-way goal 1: Pt to have improved functional activitities with UEFS score >50/80 manager intermediate goal 2: Pt to demonstrate 135deg AROM shoulder flexion to improve ability to reach into cupboards half-way goal 3: Pt to demonstrate 4/5 shoulder horizontal abd strength to improve ADLs and posture. Post Treatment Pain: 0/10 Time In: 1115 Time Out : 1155 Timed Code Treatment Minutes: 40 Minutes Total Treatment Time: 40 Minutes Nathalie Burnham ELEMENTARY SPANISH TEACHER Date: 06/14/2020 documented in this encounter* Quynh Worthington, PT - 06/19/2020 1:45 PM EDT Images from the original note were not included. [facility] Daily Note Date: 06/19/2020 Patient Name: Tony Starks : 1945 (74 y.o.) Referring Practitioner: Dr. Pretty Ames Referral Date : 05/23/20 Diagnosis: R shoulder scope, LHB debridment, SAD, RCR Treatment Diagnosis: R shoulder pain s/p RTC sx Onset Date: 05/09/20 PT Insurance Information: [facility] Total # of Visits Approved: 18 [...] increase PROM R shld flexion 145 degrees-Met [place]ain Turner Goals - Time Frame for manager intermediate goals : 18 visits manager intermediate goal 1: Pt to have improved functional activitities with UEFS score >50/80 half-way goal 2: Pt to demonstrate 135deg AROM shoulder flexion to improve ability to reach into cupboards-Met half-way goal 3: Pt to demonstrate 4/5 shoulder horizontal abd strength to improve ADLs and posture. Post Treatment Pain: 05/15 Time In: 13:45 Time Out : 14:15 Timed Code Treatment Minutes: 30 Minutes Total Treatment Time: 30 Minutes Quynh Worthington, PT Date: 06/19/2020 documented in this encounter* Alisia Sapp - 06/21/2020 11:15 AM EDT Images from the original note were not included. [facility] Daily Note Date: 06/21/2020 Patient Name: Tony Starks : 1945 (74 y.o.) Referring Practitioner: Dr. Pretty Ames Referral Date : 05/23/20 Diagnosis: R shoulder scope, LHB debridment, SAD, RCR Treatment Diagnosis: R shoulder pain s/p RTC sx Onset Date: 05/09/20 PT Insurance Information: [facility] Total # of Visits Approved: 18 [...] increase PROM R shld flexion 145 degrees-Met [place]celain Turner Goals - Time Frame for half-way goals : 18 visits manager intermediate goal 1: Pt to have improved functional activitities with UEFS score >50/80 half-way goal 2: Pt to demonstrate 135deg AROM shoulder flexion to improve ability to reach into cupboards-Met half-way goal 3: Pt to demonstrate 4/5 shoulder horizontal abd strength to improve ADLs and posture. Post Treatment Pain: 1/10 Time In: 1115 Time Out : 1154 Timed Code Treatment Minutes: 39 Minutes Total Treatment Time: 39 Minutes Alisia Sapp,ELEMENTARY SPANISH TEACHER Date: 06/21/2020 documented in this encounter* Alisia Sapp - 06/24/2020 1:45 PM EDT Images from the original note were not included. [facility] Daily Note Date: 06/24/2020 Patient Name: Tony Starks : 1945 (75 y.o.) Referring Practitioner: Dr. Pretty Ames Referral Date : 05/23/20 Diagnosis: R shoulder scope, LHB debridment, SAD, RCR Treatment Diagnosis: R shoulder pain s/p RTC sx Onset Date: 05/09/20 PT Insurance Information: [facility] Total # of Visits Approved: 18 [...] increase PROM R shld flexion 145 degrees-Met [place]celain Turner Goals - Time Frame for half-way goals : 18 visits manager intermediate goal 1: Pt to have improved functional activitities with UEFS score >50/80 manager intermediate goal 2: Pt to demonstrate 135deg AROM shoulder flexion to improve ability to reach into cupboards-Met half-way goal 3: Pt to demonstrate 4/5 shoulder horizontal abd strength to improve ADLs and posture. Post Treatment Pain: 1-2 Time In: 1341 Time Out : 1422 Timed Code Treatment Minutes: 43 Minutes Total Treatment Time: 43 Minutes Alisia SappELEMENTARY SPANISH TEACHER Date: 06/24/2020 documented in this encounter* Quynh Worthington, PT - 06/26/2020 11:15 AM EDT Images from the original note were not included. [facility] Progress Report Date: 06/26/2020 Patient: Tony Starks : 1945 Referring Practitioner: Dr. Pretty Ames Referral Date : 05/23/20 Diagnosis: R shoulder scope, LHB debridment, SAD, RCR Treatment Diagnosis: R shoulder pain s/p RTC sx Onset Date: 05/09/20 PT Insurance Information: [facility] Total # of Visits Approved: 18 [...] increase PROM R shld flexion 145 degrees-Met half-way goals Time Frame for manager intermediate goals : 18 visits manager intermediate goal 1: Pt to have improved functional activitities with UEFS score >50/80 half-way goal 2: Pt to demonstrate 135deg AROM shoulder flexion to improve ability to reach into cupboards-Met half-way goal 3: Pt to demonstrate 4/5 shoulder horizontal abd strength to improve ADLs and posture. Nathalie Aureliano Chacha ELEMENTARY SPANISH TEACHER Date: 06/26/2020 * Nathalie Burnham - 06/26/2020 11:15 AM EDT Images from the original note were not included. [facility] Daily Note Date: 06/26/2020 Patient Name: Tony Starks : 1945 (75 y.o.) Referring Practitioner: Dr. Pretty Ames Referral Date : 05/23/20 Diagnosis: R shoulder scope, LHB debridment, SAD, RCR Treatment Diagnosis: R shoulder pain s/p RTC sx Onset Date: 05/09/20 PT Insurance Information: [facility] Total # of Visits Approved: 18 [...] increase PROM R shld flexion 145 degrees-Met [place] Turner Goals - Time Frame for manager intermediate goals : 18 visits manager intermediate goal 1: Pt to have improved functional activitities with UEFS score >50/80 manager intermediate goal 2: Pt to demonstrate 135deg AROM shoulder flexion to improve ability to reach into cupboards-Met half-way goal 3: Pt to demonstrate 4/5 shoulder horizontal abd strength to improve ADLs and posture. Post Treatment Pain: 210 Time In: 1112 Time Out : 1150 Timed Code Treatment Minutes: 38 Minutes Total Treatment Time: 38 Minutes Nathalie Burnham ELEMENTARY SPANISH TEACHER Date: 06/26/2020 documented in this encounter* MichaelAlisia dorsey S - 07/01/2020 11:15 AM EDT Images from the original note were not included. [facility] Daily Note Date: 07/01/2020 Patient Name: Tony Starks : 1945 (75 y.o.) Referring Practitioner: Dr. Pretty Ames Referral Date : 05/23/20 Diagnosis: R shoulder scope, LHB debridment, SAD, RCR Treatment Diagnosis: R shoulder pain s/p RTC sx Onset Date: 05/09/20 PT Insurance Information: [facility] Total # of Visits Approved: 18 [...] degrees-Met Snf Goals - Time Frame for manager intermediate goals : 18 visits manager intermediate goal 1: Pt to have improved functional activitities with UEFS score >50/80 manager intermediate goal 2: Pt to demonstrate 135deg AROM shoulder flexion to improve ability to reach into cupboards-Met manager intermediate goal 3: Pt to demonstrate 4/5 shoulder horizontal abd strength to improve ADLs and posture. Post Treatment Pain: 0/10 Time In: 1114 Time Out : 1153 Timed Code Treatment Minutes: 39 Minutes Total Treatment Time: 39 Minutes Alisia Sapp ,ELEMENTARY SPANISH TEACHER Date: 07/01/2020 documented in this encounter* Quynh Worthington, PT - 07/03/2020 11:15 AM EDT Images from the original note were not included. [facility] Outpatient Physical Therapy Daily Note Date: 07/03/2020 Patient Name: Tony Starks : 1945 (75 y.o.) Referring Practitioner: Dr. Pretty Ames Referral Date : 05/23/20 Diagnosis: R shoulder scope, LHB debridment, SAD, RCR Treatment Diagnosis: R shoulder pain s/p RTC sx Onset Date: 05/09/20 PT Insurance Information: [facility] Total # of Visits Approved: 18 [...] increase PROM R shld flexion 145 degrees-Met Porcelain Turner Goals - Time Frame for half-way goals : 18 visits half-way goal 1: Pt to have improved functional activitities with UEFS score >50/80 half-way goal 2: Pt to demonstrate 135deg AROM shoulder flexion to improve ability to reach into cupboards-Met manager intermediate goal 3: Pt to demonstrate 4/5 shoulder horizontal abd strength to improve ADLs and posture.-Met Post Treatment Pain: 2 Time In: 11:15 Time Out : 11:55 Timed Code Treatment Minutes: 40 Minutes Total Treatment Time: 40 Minutes Quynh Worthington, PT Date: 07/03/2020 documented in this encounter* Alisia Sapp - 07/15/2020 11:15 AM EDT Images from the original note were not included. [facility] Out[facility] Physical Therapy Daily Note Date: 07/15/2020 Patient Name: Tony Starks : 1945 (75 y.o.) Referring Practitioner: Dr. Pretty Ames Referral Date : 05/23/20 Diagnosis: R shoulder scope, LHB debridment, SAD, RCR Treatment Diagnosis: R shoulder pain s/p RTC sx Onset Date: 05/09/20 PT Insurance Information: [facility] Total # of Visits Approved: 18 [...] increase PROM R shld flexion 145 degrees-Met Porcelain Turner Goals - Time Frame for half-way goals : 18 visits half-way goal 1: Pt to have improved functional activitities with UEFS score >50/80-MET manager intermediate goal 2: Pt to demonstrate 135deg AROM shoulder flexion to improve ability to reach into cupboards-Met manager intermediate goal 3: Pt to demonstrate 4/5 shoulder horizontal abd strength to improve ADLs and posture.-Met Post Treatment Pain: 0/10 Time In: 1115 Time Out : 1154 Timed Code Treatment Minutes: 39 Minutes Total Treatment Time: 39 Minutes Alisia Sapp,ELEMENTARY SPANISH TEACHER Date: 07/15/2020 documented in this encounter Reason for Referral Status Reason Specialty Diagnoses / Procedures Referre d By Contact Referred To Contact Closed Radiology Diagnoses Impingement syndrome of right shoulder Procedures MRI SHOULDER RIGHT WO CONTRAST Pretty Ames, DO [address] [place] [address] [facility] [address] [place] [address] Specialty Diagnoses / Procedures Referred By Contac t Referred To Contact Cardiology Diagnoses Pre-op testing Procedures EKG 12 Lead Back, MD Brian [address] [place] [id number] Referral ID Status Reason Start Date Expiration Date Visits Re quested Visits Authorized [id number] Open 04/20/2022 04/20/2023 1 1 Discharge Instructions [...] meditation. You may begin using Tylenol or [id number] Ibuprofen or Motrin for pain should you [...] from the original note were not included. [facility] Therapy Discharge Summary Patient: [...] RIGHT WO CONTRAST Pretty Ames DO [address] [place] [address] [facility] [address] [place] [address] Status Reason Specialty Diagnoses / Procedures Referre d By Contact Referred To Contact Diagnoses Unspecified rotator cuff tear or rupture of right shoulder, not specified as traumatic RIGHT SHOULDER ROTATOR CUFF TEAR....BICEP TENDONITIS Procedures AR SHLDR ARTHROSCOP,SURG,W/ROTAT CUFF REPR RIGHT SHOULDER ARTHROSCOPY PROBABLE ROTATOR CUFF REPAIR... LONG HEAD BICEPS TENODESIS Pretty Ames, DO [address] [place] [address] [facility] Reason Comments Follow-up Reason Onset Date [...] Care Teams (unrecognized sec tion and content) 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 Start Date End Date Daniel Pop DO [address] [place] [id number] PCP - General Family Medicine 11/24/16 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 Start Date End Date Daniel Pop DO [address] [place] [address] PCP - General Family Medicine 10/14/22 Laya Plata, TELLERS SUPERVISOR [address] [place] [address] PCP - ACO Reach 01/04/24 Laya Plata, TELLERS SUPERVISOR [address] [place] [address] Nurse Practitioner Family Medicine 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 Start Date End Date Daniel Pop DO [address] [place] [address] PCP - General Family Medicine 10/14/22 Laya Plata, TELLERS SUPERVISOR [address] [place] [address] PCP - ACO Reach 01/04/24 Laya Plata, TELLERS SUPERVISOR [address] [place] [address] Nurse Practitioner Family Medicine 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 Start Date End Date Daniel Pop DO [address] [place] [address] PCP - General Family Medicine 10/14/22 Laya Plata, TELLERS SUPERVISOR [address] [place] [address] PCP - ACO Reach 01/04/24 Laya Plata, TELLERS SUPERVISOR [address] [place], [place] [id number] Nurse Practitioner Family Medicine 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 Start Date End Date Daniel Pop DO [address] [place] [address] PCP - General Family Medicine 10/14/22 Laya Plata, TELLERS SUPERVISOR [address] [place] [address] PCP - ACO Reach 01/04/24 Laya Plata, TELLERS SUPERVISOR [address] [place] [address] Nurse Practitioner Family Medicine 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 Start Date End Date Daniel Pop DO [address] [place] [address] PCP - General Family Medicine 10/14/22 Laya Plata, TELLERS SUPERVISOR [address] [place] [address] PCP - ACO Reach 01/04/24 Laya Plata, TELLERS SUPERVISOR [address] [place] [address] Nurse Practitioner Family Medicine 10/14/22 (unrecognized sect ion and content) No Status Records FoundNo Status Records FoundNo Status Records FoundNo Status Records Found INFORMATION SOURCE (unrecogn ized section and content) DATE CREATED AUTHOR 04/29/2022 [facility] DATE CREATED AUTHOR AUTHOR'S ORGANIZ ATION 02/03/[address] [facility] DATE CREATED AUTHOR AUTHOR'S ORGANIZ ATION 06/19/2023 [facility] DATE CREATED AUTHOR AUTHOR'S ORGANIZ ATION 01/18/2024 [facility] [employer] FOR RECORDS PERTAINING TO PATIENTS WHO [...] BE BASED ON THE PRIMARY CLINICAL RECORDS. [facility] [employer] [facility]. provides no warranty or guarantee of the accuracy or completeness of information in this document.
--- NOTE | 2024-03-01 10:06 | P.CN_ITS ---
Consult Note: HPI Data of Consult Patient: known to practice within the last 3 years Requesting Physician: Fariha Meehan NP Primary Care Provider: Non-Staff Physician, MD Consult Narrative Reason for consult: f/u Narrative: Tony Starks a pleasant 77 year old male presents for evaluation and management of chronic left shoulder pain and right low back pain. Patient reports no relief from prior injection. Continues to have pain with activity in left shoulder joint . Rating pain today 7-8/10. Finds mild benefit to voltaren gel, moderate benefit from tramadol but would like to avoid medications. Recent right superior gluteal nerve block providing 100% improvement immediately and ongoing. pt would like to repeat left suprascapular nerve injection as he had >50% improvement greater than 3 months. cc:: CC: Fariha Meehan NP Review of Systems ROS Status of ROS 10 or more systems reviewed and unremark able except as noted in history and below Musculoskeletal Reports: joint pain Meds Home Medications and Allergies Home Medications ?Medication ?Instructions ?Recorded ?Confirmed ?Type acetaminophen 650 mg 650 mg PO Q12H PRN fever or pain 01/27/23 02/22/24 History tablet,extended release (8 Hour Pain Reliever) apple cider vinegar 600 mg capsule 600 mg PO TID 01/27/23 02/22/24 History aspirin 81 mg tablet,delayed 81 mg PO DAILY 01/27/23 02/22/24 History release (Adult Aspirin Regimen) atenolol 50 mg tablet 50 mg PO DAILY 01/27/23 02/22/24 History atorvastatin 40 mg tablet 40 mg PO DAILY 01/27/23 02/22/24 History calcium 500 mg (as 1 tab PO TID 01/27/23 02/22/24 History carbonate)-vitamin D3 10 mcg (400 unit) tablet (Calcium 500 + D) cholecalciferol (vitamin D3) 50 50 mcg PO DAILY 01/27/23 02/22/24 History mcg (2,000 unit) tablet (Vitamin D3) famotidine 20 mg tablet 20 mg PO BID 01/27/23 01/27/23 History fluticasone propionate 50 1 spray intranasal BID PRN allergy 01/27/23 02/22/24 History mcg/actuation nasal symptoms spray,suspension (24 Hour Allergy Relief) hydrochlorothiazide 25 mg tablet 25 mg PO DAILY 01/27/23 02/22/24 History insulin degludec 100 unit/mL (3 64 unit subcut DAILY 01/27/23 02/22/24 History mL) subcutaneous pen (Tresiba FlexTouch U-100 insulin) lisinopril 20 mg tablet 20 mg PO BID 01/27/23 02/22/24 History loratadine 10 mg capsule 10 mg PO DAILY 01/27/23 02/22/24 History melatonin 10 mg capsule 10 mg PO DAILY 01/27/23 02/22/24 History multivitamin (Daily Multi-Vitamin 1 tab PO DAILY 01/27/23 02/22/24 History tablet) omeprazole 20 mg capsule,delayed 20 mg PO DAILY 01/27/23 02/22/24 History release pyridoxine (vitamin B6) 100 mg 100 mg PO DAILY 01/27/23 02/22/24 History tablet sitagliptin phos 50 mg-metformin 1 tab PO BID 01/27/23 02/22/24 History ER 1,000 mg tablet,extend rel 24h mp (Janumet XR) zinc 25 mg tablet 25 mg PO DAILY 01/27/23 02/22/24 History tramadol 50 mg tablet 50 mg PO BID PRN pain #60 tabs 03/09/23 02/22/24 Rx Allergies Allergy/AdvReac Type Severity Reaction Status Date / Time No Known Drug Allergies Allergy Verified 01/27/23 10:47 Exam Constitutional Documenting provider has reviewed patient's vital signs: yes Common normals: no apparent distress, oriented x3, healthy appearing, alert and well nourished General appearance: cooperative [facility] Common normals: normocephalic, hearing grossly normal bilaterally and moist oral mucous membranes Head and scalp: normocephalic Eye Common normals: PERRL Pupil: PERRL Neck & C-Spine Common normals: full ROM General: normal visual inspection Other: no pain with rotation, flexion, extension. No pain with palpation. Denies numbness/tingling/weakness in bilateral arms or hands. No tenderness over left suprascapular or axillary nerve pattern. Chest Common normals: inspection of chest normal Respiratory Common normals: normal respiratory effort, no retractions and no use of accessory muscles Extremity Left upper extremity: shoulder joint (no edema. ROM mildly impaired. ) Other: pain over left suprascapular nerve and left AC joint. positive empty can test ROM normal without pain Neuro Common normals: oriented x3, CN's II-XII intact bilaterally, moves all extremities, no focal motor deficits, no sensory deficits noted and deep tendon reflexes 2+ bilaterally Sensorium/orientation: alert Motor exam: strength 5/5 throughout and no movement abnormalities noted Psych Common normals: mental status grossly normal, thought process normal, cooperative, affect normal, speech normal and activity/motor behavior normal Speech: normal speech Thought process: normal thought process Assessment and Plan Assessment and Plan (1) Primary osteoarthritis, left shoulder: (2) Left shoulder pain: (3) Chronic use of opiate drug for therapeutic purpose: (4) Unspecified mononeuropathy of right lower limb: Plan repeat left suprascapular nerve injection UDS today for medication monitoring continue tramadol 50mg once daily as needed 15 tabs to last 30 days as discussed. pt has been utilizing more than once daily over the last week and requested a refill today. if pt fails to comply with medication regimen moving forward we will convert to NNCP defer right superior gluteal RFA at this time, pain well controlled f/u with Dr Osman for injection
== END 2024-03-01 09:50 | disposition home or self-care (01) ==
LOC: PM 09:49
PROVIDERS: Visit Provider Nurse Practitioner
DX: M19.012 Primary osteoarthritis, left shoulder (principal); M25.512 Pain in left shoulder; Z79.891 Long term (current) use of opiate analgesic; G57.91 Unspecified mononeuropathy of right lower limb
CPT/HCPCS: G0463

== ENCOUNTER 2024-03-07 13:34 | Outpatient (OUT) | payer MEDICARE, OTHER, SELFPAY ==
--- NOTE | 2024-03-07 | CONS_ITS ---
PROCEDURE DATE: 03/07/2024 PROCEDURE: Left suprascapular nerve injection. PREOPERATIVE DIAGNOSIS: Pain secondary to left shoulder pain. POSTOPERATIVE DIAGNOSIS: Pain secondary to left shoulder pain. SOLUTION USED FOR INJECTION: 2 mL of 2% lidocaine, 2 mL of 0.25% Marcaine and 20 mg of Kenalog, total of 5 mL, and 2 mL used for the injection. IMMEDIATE COMPLICATIONS: None. PROCEDURE: After informed consent was obtained from the patient, placed in the sitting position. Skin overlying the area was prepped with alcohol. A 25 gauge, 1 ?? needle inserted over the area of the left suprascapular nerve. Needle tip was advanced until there was mild paresthesia, at which point we re- directed the needle tip. When the paresthesia completely resolved, we injected 2 mL of solution. No indication of intravascular or intraneural needle tip placement or injection noted. No evidence of post procedural pneumothorax was noted. He reports a dramatic decrease in pain symptoms. LOC
--- OUTSIDE RECORDS SUMMARY | 2024-03-07 13:55 | XMS_ITS | CCD ---
Author Organization [facility] Care Team Providers Care Public Safety Police Name Role Phone Daniel Pop Primary Care Provider [phone] KESHAWN, DR OTF Villatoro Consulting Unavailable JOO, [...] Unavailable Daniel Pop DO Primary Care Provider [phone] Jay CABLE SPLICER APPRENTICE, Laya L Unavailable Jay CABLE SPLICER APPRENTICE, Laya L Unavailable POCPRETTY WORKMAN Attending Unavailable [...] mellitus with other specified complication, unspecified whether termite helper insulin use (CMS/HCC) Inject 34 Units under [...] meq/ml oral solution (1 source) Start: 04-20-2022 bquxbz-pltkqxuxz-zkz sulfate (SUPREP BOWEL PREP KIT) 17.5-3.13-1.6 GM/177ML [...] 10-19-2022 10-19-2022 Chronic Other aftercare (1 source) long term care administrator (current) use of insulin; Translations: [VP OF DIGITAL MARKETING CURRENT USE OF INSULIN] Onset: 04-13-2022 Episodic [...] Panel InformationOrdered By: Birgit Hernandez on 01-10-2024 [facility] XR CERVICAL SPINE (4-5 VIEWS )on 03-01-2023 [...] Noonan Jr., MD 03/01/23 Final result Normal [facility] XR SHOULDER LEFT (MIN 2 VIEW [...] Noonan Jr., MD 03/01/23 Final result Normal [facility] EKG 12 Leadon 04-20-2022 Atrial Rate 60 BPM [employer] Work Phone: P [place] 40 degrees [employer] Work Phone: P-R Interval 198 ms [employer] Phone: Q-T Interval 396 ms [employer] Phone: QRS Duration 96 ms [employer] Work Phone: QTc Calculation (Bazett) 396 ms [employer] Work Phone: R [place] 60 degrees [employer] Work Phone: T [place] 17 degrees [employer] Phone: Ventricular Rate 60 BPM BON [employer] Phone: Normal sinus rhythm Minimal voltage criteria for LVH, may be normal variant ( Sokolow-Ashby ) Borderline ECG [facility] Brian Mckeon MD - 04/20/2022 Normal sinus rhythm Minimal voltage criteria for LVH, may be normal variant ( Sokolow-Ashby ) Borderline ECG [employer] Work Phone: [employer] Work Phone: POINT OF CARE GLUCOSEon Glucose [Mass/Vol] 177 mg/dL Critically high 74-106 T [facility] [place] Comment on above: Performed By: #### P OCGLUC #### [facility] [address] [address] [address] Spencer Zabala COVID-19on 05-09-2020 SARS-CoV-2, Rapid Not Detected Not Detected [place] Comment on above: Rapid NAAT: The [...] management decisions. Fact sheet for Healthcare Providers: https://www.fda.gov/media/268692/download Fact sheet for Patients: https://www.fda.gov/media/045993/download Methodology: Isothermal Nucleic Acid Amplification Source .THROAT [place] Glucose, Whole Bloodon 05-09 Glucose [Mass/Vol] 83 mg/dL 65 - 99 mg/dL [place] Glucose [Mass/Vol] 99 mg/dL 65 - 99 mg/dL [place] Otheron 05-09-2020 SARS-CoV-2 [place] Basic Metabolic Panelon 04-06 Anion gap [Moles/Vol] 9 mmol/L 9 - 17 mmol/L [place] Bun/Cre Ratio 20 [place] Calcium [Mass/Vol] 10.6 mg/dL High 8.6 - 10. 4 mg/dL [place] Chloride [Moles/Vol] 99 mmol/L 98 - 10 7 mmol/L [place] CO2 [Moles/Vol] 26 mmol/L 20 - 31 mmol/L [place] Creatinine [Mass/Vol] 1.26 mg/dL High 0.7 - 1.2 mg/dL [place] GFR >60 >60 mL/min [place] GFR Non- 56 mL/min Low >60 [place] GFR/1.73 sq M predicted among non-blacks MDRD (S/P/Bld) [Vol rate/Area] [place] Comment on above: Average GFR for 70 o r more years old: 75 mL/min/1.73sq m Chronic Kidney Disease: <60 mL/min/1.73sq m Kidney failure: <15 mL/min/1.73sq m eGFR calculated using average adult body mass. Additional eGFR calculator available at: http://www.NUOFFER/multiple_crcl_2012.htm GFR/1.73 sq M predicted among non-blacks MDRD (S/P/Bld) [Vol rate/Area] NOT REPORTED [place] Glucose [Mass/Vol] 155 mg/dL High 70 - 99 mg/dL [place] Interpretation and review of laboratory results Abnormal [place] Potassium [Moles/Vol] 4.5 mmol/L 3.7 - 5.3 mmol/L [place] Sodium [Moles/Vol] 134 mmol/L Low 135 - 144 mmol/L [place] Urea nitrogen [Mass/Vol] 25 mg/dL High 8 - 23 mg/dL [place] CBC Auto Differentialon 04-06 Basophils (Bld) [#/Vol] 0.00 10*3/uL [place] Basophils/100 WBC (Bld) 0 % 0 - 2 % [place] Differential Type YES [place] Eosinophils (Bld) [#/Vol] 0.20 10*3/uL [place] Eosinophils/100 WBC (Bld) 3 % 0 - 5 % [place] Erythrocyte distribution width (RBC) [Ratio] 14.2 % 12.1 - 15.2 % [place] Hematocrit (Bld) [Volume fraction] 43.0 % 41 - 53 % [place] Hemoglobin (Bld) [Mass/Vol] 14.6 g/dL 13.5 - 17.5 g/dL [place] Lymphocytes (Bld) [#/Vol] 1.70 10*3/uL [place] Lymphocytes/100 WBC (Bld) 23 % 13 - 44 % [place] MCH (RBC) [Entitic mass] 30.9 pg 26 - 34 pg [place] MCHC (RBC) [Mass/Vol] 33.9 g/dL 31 - 37 g/dL [place] MCV (RBC) [Entitic vol] 91.1 fL 80 - 100 fL [place] Monocytes (Bld) [#/Vol] 0.70 10*3/uL [place] Monocytes/100 WBC (Bld) 9 % 5 - 9 % [place] Platelet mean volume (Bld) [Entitic vol] NOT REPORTED 6 - 12 fL [place] Platelets (Bld) [#/Vol] 237 10*3/uL [place] Platelets (Bld) [#/Vol] NOT REPORTED [place] RBC (Bld) [#/Vol] 4.73 10*6/uL 4.5 - 5.9 m/uL [place] RBC morphology finding Nom (Bld) NOT REPORTED [place] Segmented neutrophils/100 WBC (Bld) 65 % 39 - 75 % [place] Segs Absolute 4.90 [place] WBC (Bld) [#/Vol] NOT REPORTED per 100 WBC [place] WBC (Bld) [#/Vol] 7.6 10*3/uL [place] WBC Morphology NOT REPORTED [place], [place] Otheron 05-02-2020 Immature granulocytes (Bld) [#/Vol] NOT REPORTED [place] XR CHEST (2 VW)on 05-02-2020 Likely mild symmetri c emphysematous overinflation. No acute changes. [place] EXAM: XR CHEST (2 VW ) HISTORY: Reason for exam:->Pre-op for rt shoulder scope. COMPARISON: None. TECHNIQUE: 2 views chest. FINDINGS: Likely mild emphysematous overinflation. Heart size normal. Lungs clear. [place], [facility] Incoming Radiant Results From [facility] - 05/02/2020 1:56 PM EST EXAM: XR CHEST (2 VW) HISTORY: Reason for exam:->Pre-op for rt shoulder scope. COMPARISON: None. TECHNIQUE: 2 views chest. FINDINGS: Likely mild emphysematous overinflation. Heart size normal. Lungs clear. IMPRESSION: Likely mild symmetric emphysematous overinflation. No acute changes. [facility] [place] MRI SHOULDER RIGHT WO LIT[address]Y [address] [...] clinical follow up to assess for stability. [facility] [place] CLINICAL HISTORY: Impingement syndrome of right [...] glenohumeral joint, with small inferior marginal osteophytes. [facility] [place], [place], pn Incoming Radiant Results From [facility] - 04/24/2020 12:20 PM EST CLINICAL HISTORY: [...] clinical follow up to assess for stability. [facility] [place] XR SHOULDER RIGHT (MIN 2 VIE WS)on 02-23-2020 Moderate degenerativ e changes at the acromioclavicular joint with undersurface spurring measuring 7 mm, which could contribute to outlet impingement. [facility] [place] EXAM: XR SHOULDER RIGHT (MIN 2 VIEWS). HISTORY: M19.011. 74-year-old male, right shoulder pain, arthritis right shoulder region. COMPARISON: None. TECHNIQUE: 3 views right shoulder FINDINGS: Moderate osteoarthritic change acromioclavicular joint with undersurface spurring. Minimal degenerative narrowing at the glenohumeral joint. [facility] [place], [facility] Incoming Radiant Results From [facility] - 02/23/2020 4:11 PM EST EXAM: XR [...] contribute to outlet impingement. [facility] [place] Vital Signs Date Time Vital Sign Value Performing Clinician Facility 01-17-2024 10:30-0400 Body height 175.3 cm Laya Plata CABLE SPLICER APPRENTICE Work Phone: [facility] 01-17-2024 10:30-0400 Body mass index (BMI) [Ratio] 25.08 kg/m2 Laya Jayline CABLE SPLICER APPRENTICE Work Phone: [facility] 01-17-2024 10:30-0400 Body temperature 97.81 [degF] Laya Rine CABLE SPLICER APPRENTICE Work Phone: [facility] 01-17-2024 10:30-0400 Body weight 77.02 kg Laya Jayline CABLE SPLICER APPRENTICE Work Phone: [facility] 01-17-2024 10:30-0400 Diastolic blood pressure 78 mm[Hg] Laya Jayline CABLE SPLICER APPRENTICE Work Phone: [facility] 01-17-2024 10:30-0400 Heart rate 70 /min Laya Jayline CABLE SPLICER APPRENTICE Work Phone: [facility] 01-17-2024 10:30-0400 Respiratory rate 18 /min Laya Rine CABLE SPLICER APPRENTICE Work Phone: [facility] 01-17-2024 10:30-0400 SaO2% (BldA) [Mass fraction] 96 % Laya Rine CABLE SPLICER APPRENTICE Work Phone: [facility] 01-17-2024 10:30-0400 Systolic blood pressure 138 mm[Hg] Laya Rine CABLE SPLICER APPRENTICE Work Phone: [facility] 05-09-2020 15:35-0500 BP Diastolic 58 mm[Hg] [place] 05-09-2020 15:35-0500 BP Systolic 113 mm[Hg] [place] 05-09-2020 15:35-0500 Pulse (Heart Rate) 60 /min [place] 05-09-2020 15:35-0500 Pulse Oximetry 96 % [place] 05-09-2020 15:35-0500 Respiratory Rate 18 /min [place] 05-09-2020 15:05-0500 Body Temperature 96.49 [degF] [place] 05-09-2020 10:31-0500 BMI (Body Mass Index) 26.09 kg/m2 [place] 05-09-2020 10:31-0500 Body weight 76.7 kg [place] 05-09-2020 10:31-0500 Height 171.5 cm [place] Encounters Encounter Date Encounter Type Care Provider Facility Start: 01-17-2024 End: 01-17-2024 Bamboo flowsheet Laya L Rine CABLE SPLICER APPRENTICE Work Phone: [facility] Start: 01-17-2024 End: 01-17-2024 Bamboo flowsheet Laya L Rine CABLE SPLICER APPRENTICE Work Phone: [facility] Start: 01-17-2024 End: 01-17-2024 Office outpatient visit 25 minutes Laya L Rine CABLE SPLICER APPRENTICE Work Phone: [facility] Comment on above: Type 2 diabetes carmen itus with complication (CMS/HCC) (Primary Dx); Stage 3a chronic kidney disease (HCC) (CMS/HCC); Type 2 diabetes mellitus with hyperglycemia (CMS/HCC); Mixed hyperlipidemia (CMS/HCC) Start: 01-17-2024 End: 01-17-2024 ambulatory LAYA L RINE Not Available Start: 01-16-2024 End: 01-17-2024 Refill Laya Plata CABLE SPLICER APPRENTICE Work Phone: [facility] Comment on above: Primary hypertension (CMS/HCC) Start: 01-10-2024 End: 01-10-2024 Bamboo flowsheet Nicol Salgado PA Work Phone: [facility] Start: 01-10-2024 End: 01-10-2024 Bamboo flowsheet Nicolirene Salgado PA Work Phone: [facility] Start: 01-10-2024 End: 01-10-2024 Telephone encounter Laya Plata CABLE SPLICER APPRENTICE Work Phone: [facility] Comment on [...] Not Available Start: 06-15-2023 End: 06-18-2023 ambulatory [facility] Start: 05-21-2023 End: 05-21-2023 ambulatory LAYA L RINE Not Available Start: 04-12-2023 End: 04-12-2023 ambulatory NICOL SALGADO Not Available Start: 04-02-2023 End: 04-02-2023 ambulatory PRETTY Tierney POCOS Not Available Start: 03-05-2023 End: 03-05-2023 ambulatory PRETTY Tierney POCOS Not Available Start: 03-01-2023 End: 03-04-2023 ambulatory DANIEL POP [facility] Start: 02-01-2023 End: 02-02-2023 ambulatory Ponce Fuentes MD Facility:[facility] Start: 04-23-2022 End: 04-24-[address] DOCTOR [...] by physician Daniel Pop DO Work Phone: [facility] Start: 07-15-2020 End: 07-15-2020 Subsequent hospital [...] hospital visit [facility] Comment on above: Impingement syndrome of [...] Subsequent hospital visit by physician Rosalino Singh [facility] Physical Therapy Comment on above: Arrived [...] Subsequent hospital visit by physician Rosalino Singh [facility] Physical Therapy Comment on above: Arrived Start: 03-19-2020 End: 03-19-2020 Subsequent hospital visit by physician Danay Can [facility] Comment on above: Arrived Start: 02-23-2020 End: 02-25-2020 Subsequent hospital visit by physician Anderson [facility] Comment on above: Arthritis of right s houlder region Start: 12-20-2018 End: 12-22-2018 [facility] Procedures Date Procedure Procedure Detail [...] screening for protein Diabetes: Urine Protein Screening [facility] Start: 05-08-2024 End: 05-08-2024 Patient encounter procedure 05/08/2024 11:00 AM EST Of fice Visit [facility] [address] [place] [address] Laya Plata, CABLE SPLICER APPRENTICE [address] [place] [address] [facility] Start: 04-14-2024 End: 04-14-2024 Patient encounter procedure 04/14/2024 10:40 AM EST Of fice Visit [facility] [address] [place] [address] Nicol Salgado, PA [address] [place] [address] [facility] Start: 04-13-2024 [...] Dx); Stage 3a chronic kidney disease (HCC) ([facility]/HCC) Start: 01-10-2024 End: 01-10-2024 Patient encounter procedure 01/10/2024 10:30 AM EDT Of fice Visit [facility] [address] [place] [address] Nicol Salgado PA [address] [place] [address] Arrived [facility] Comment on above: [...] IP Unit Back, MD Brian [address] [place] [address] COLONOSCOPY [facility] Comment on [...] Encounter IP Unit Mike, MD Brian [address] [place] [address] [facility] Start: 05-02-2021 Creatinine measurement Creatinine monitoring [facility], [place] Start: 05-02-2021 Potassium monitoring Potassium monitoring [facility] Start: 08-13-2020 COVID-19 Vaccine (2 - Booster for Hermila series) COVID-19 Vaccine (2 - Booster for Hermila series) HENRI GROVER [facility] Start: 07-11-2020 End: 07-11-2020 Appointment [...] Physical Therapy Start: 06-03-2020 [facility] [facility] Start: 05-31-2020 Hospital Encounter 05/31/2020 [facility] Alisia Rojas [facility] [...] Appointment 04/09/2020 Appointment Physical Therapy Rosalino Singh ORACLE EBS CONSULTANT [facility] Start: 04-03-2020 End: 04-03-2020 Appointment 04/03/2020 Appointment Physical Therapy Rosalino Singh ORACLE EBS CONSULTANT [facility] Start: 04-01-2020 End: 04-01-2020 Appointment 04/01/2020 Appointment Physical Therapy Rosalino Singh ORACLE EBS CONSULTANT [facility] Start: 03-27-2020 End: 03-27-2020 Appointment 03/27/2020 Appointment Physical Therapy Jessica Albarado, PT [address] [place] [address] [phone] [facility] Start: 03-26-2020 End: 03-26-2020 Appointment 03/26/2020 Appointment Physical Therapy Danay Can, PT [facility] Start: 03-21-2020 End: 03-21-2020 Appointment 03/21/2020 Appointment Physical Therapy Rosalino Singh ORACLE EBS CONSULTANT [facility] Start: 12-01-2019 Colon cancer screen colonoscopy Colon cancer screen colonoscopy [place] Start: 12-04-2018 Influenza vaccination Flu vaccine (#1) [place] Start: 09-22-2018 Annual Wellness Visit (AWV) Annual Wellness Visit (AWV) [facility] Start: 03-02-2018 Pneumococcal 65+ years Vaccine (2 of 2 - PCV13) Pneumococcal 65+ years Vaccine (2 of 2 - PCV13) [place] Start: 06-22-1993 Shingles Vaccine (1 of 2) Shingles Vaccine (1 of 2) [facility] Start: 06-22-1962 DTaP/Tdap/Td vaccine (1 - Tdap) DTaP/Tdap/Td vaccine (1 - Tdap) [facility] Start: 06-22-1961 Hepatitis C screening Hepatitis C screen [facility] Start: 1959 COVID-19 Vaccine (1 of 2) COVID-19 Vaccine (1 of 2) [place] Start: 1959 COVID-19 Vaccine (1) COVID-19 Vaccine (1) [facility] Work Phone: Start: 1955 Depression Screen Depression Screen [facility] Start: 06-22-1953 [object Object] Diabetic foot exam [place] Start: 06-22-1953 A1C test (Diabetic or Prediabetic) A1C test (Diabetic or Prediabetic) [place] Start: 06-22-1953 Diabetic retinal exam Diabetic retinal exam [place] Start: 06-22-1953 Lipid panel [facility] Start: 06-22-1953 Lipid screen Lipid screen [place], [place] Start: 1943 AAA screen AAA screen [place], [place] Start: 1943 Creatinine measurement Creatinine monitoring [place], [place] Start: 1943 Creatinine monitoring Creatinine monitoring [place] Start: 1943 Hepatitis C screening Hepatitis C screen [place], [place] Start: 1943 Potassium monitoring Potassium monitoring [place] Oxygen therapy [[facility] Data Set] Initiate Oxygen Therapy Protocol Respiratory Care Routine Daily until discontinued starting 05/09/2020 [place] Comment on above: Daily until discontinued starting 2020 End: 05-09-2020 POCT glucose POCT glucose Point of Care Testing Routine One Time for 1 Occurrences starting 05/09/2020 until 05/09/2020 [place] Comment on above: One Time for 1 Occurrences starting 07/2020 until 05/09/2020 Immunizations Immunization Date Immunization Notes Care Provider [facility] 03-03-2022 Influenza, High-dose Seasonal, Quadrivalent, Preservative Free Nicol TURPIN Work Phone: [facility] 03-03-2022 influenza virus vacc ine, unspecified formulation Nicol TURPIN Work Phone: [facility] 01-01-2021 Influenza, High-dose Seasonal, Quadrivalent, Preservative Free Nicol TURPIN Work Phone: [facility] 02-22-2020 influenza, injectabl e, quadrivalent, preservative free Nicol Naomi PA Work Phone: [facility] 04-25-2019 Seasonal trivalent influenza vaccine, adjuvanted, preservative free Nicol Naomi PA Work Phone: [facility] 03-02-2018 influenza, high dose seasonal, preservative-free Nicol Naomi PA Work Phone: [facility] 03-02-2017 pneumococcal polysaccharide vaccine, 23 valent Nicol Naomi PA Work Phone: [facility] 01-07-2017 influenza, high dose seasonal, preservative-free Nicol Naomi PA Work Phone: [facility] 01-03-2016 influenza, injectabl e, quadrivalent, contains preservative Nicol Naomi PA Work Phone: [facility] 03-11-2015 influenza, injectabl e, quadrivalent, preservative free Nicol Naomi PA Work Phone: [facility] 03-11-2015 pneumococcal conjuga te vaccine, 13 valent Nicol Naomi PA Work Phone: [facility] Payers Date Payer Category Payer Medicare MEDICARE MEDICAR E PART A AND B xxxxxxxxxx 2016-Present [phone] [address] [address] [place] [address] xxxxxxxxxx [id number] 2016 Private Health Insurance HUMANA HUMANA MEDICARE SUPP xxxxxxxxx 2016-Present [address] [address] [place] [address] xxxxxxxxx [id number] 2015 Private Health Insurance 2008 Medicare 1959 Medicare [id number] 1959 Private Health Insurance [id number] .[id number] 1943 Unknown [id number] 2.16.840.1.679010.3.579.2 .593 1943 Unknown [id number] 2.16.840.1.673266.3.579.2 .593 1943 Unknown [id number] 2.16.840.1.355753.3.579.2 .593 1943 Unknown [id number] 2.16.840.1.705008.3.579.2 .593 1943 Unknown [id number] 2.16.840.1.433913.3.579.2 .593 1943 Unknown [id number] 2.16.840.1.753940.3.579.2 .196 1943 Unknown [id number] 2.16.840.1.278614.3.579.2 .174 1943 Unknown [id number] 2.16.840.1.835545.3.579.2 .174 1943 Unknown [id number] 2.16.840.1.663972.3.579.2 .174 1943 Unknown [id number] 2.16.840.1.262832.3.579.2 .174 1943 Unknown [id number] 2.16.840.1.652427.3.579.2 .1259 1943 Unknown [id number] 2.16.840.1.001688.3.579.2 .1259 1943 Unknown [id number] 2.16.840.1.854082.3.579.2 .1259 1943 Unknown [id number] 2.16.840.1.005967.3.579.2 .1259 1943 Unknown [id number] 2.16.840.1.566889.3.579.2 .1258 1943 Unknown [id number] 2.16.840.1.809834.3.579.2 .9 1943 Unknown [id number] 2.16.840.1.927449.3.579.2 .1258 1943 Unknown [id number] 2.16.840.1.637282.3.579.2 .1258 1943 Unknown [id number] 2.16.840.1.405091.3.579.2 .1258 1943 Unknown [id number] 2.16.840.1.651567.3.579.2 .1258 1943 Unknown [id number] 2.16.840.1.116184.3.579.2 .1259 Social History Date Type Detail Facility Start: 12-15-2016 End: 09-17-2023 Tobacco smoking status NHIS [place] Start: 02-06-1991 End: 11-30-2006 History of tobacco use Current [place]oker [place] Start: 02-06-1991 End: 11-30-2006 History of tobacco use Cigarette Smoker [place] End: 11-30-2006 History of tobacco use Pipe Smoker [place] Start: 12-15-2016 End: 04-20-2022 Tobacco use and exposure Former user [place] History of tobacco use Snuff User [place] History of tobacco use Chews Tobacco [place] Start: 12-15-2016 End: 01-17-2024 Alcohol intake Current drinker of alcohol (finding) [place] Start: 1945 Sex Assigned At Not on file [place] Exposure to SARS-CoV -2 (event) Not sure [place] Start: 12-15-2016 End: 01-18-2023 Alcohol intake Yes [facility] Start: 05-09-2020 End: 01-18-2023 Alcohol intake [facility] Start: 04-20-2022 History SDOH Financial 4 BON [employer] Work Phone: Start: 04-20-2022 History SDOH Food Worry 1 Cash Check Card Phone: Start: 09-17-2023 Tobacco use and exposure Smoke less tobacco non-user [facility] Within the last year , have you been afraid of your partner or ex-partner? No [facility] Do you belong to any clubs or organizations such as methodist groups, unions, fracFares or athletic groups, or school groups? Yes [...] Equipment Origin al Text Equipment Identifier Dates [employer] [id number] Mm Tiana Wiggins [id number] Start: 05-09-2020 [id number] Start: 04-20-2023 Clinical Notes 07-16-2021 to 01-17-2024 Laya Plata NP - 01/17/2024 10:30 AM EDTPatient InstructionsTelephone Encounter - Laya Plata NP - 01/10/2024 11:24 AM EDTTelephone Encounter - Laya Plata, CABLE SPLICER APPRENTICE - 01/10/2024 11:24 AM EDT Note Date [...] 25 mg, Oral, Every morning [facility] [place] 32G X 4 MM misc Inject under [...] REPAIR COLONOSCOPY 2010 [facility] SURGERY Arthroscopy knee [place] REPAIR OF NASAL SEPTUM nasal septoplasty to [...] 3.5 mo . documented in this encounter [facility] 01-17-2024 Instructions Laya Plata NP - 01/17/2024 10:30 AM EDT Farxiga 10mg per day with samples for now Brenzavvy is the new medication, one daily from the [facility] pharmacy Call if any issues getting this Check aic again in 3 mo documented in this encounter [facility] 01-10-2024 Telephone encount er Note Sent as requested [facility] 01-10-2024 Miscellaneous Notes Formattin g of this note might be different from the original. Sent as requested Refill Atorvastatin 40mg --med loaded [facility] documented in this encounter [facility] 01-10-2024 Telephone encount er Note Refill Atorvastatin 40mg --med loaded [facility] 01-10-2024 History of Presen t illness Narrative [...] limited to risks of scarring, darker or museum librarian pigmentary changes, recurrence, incomplete removal and infection. [...] Visit: as scheduled documented in this encounter [facility] 04-23-2022 Note CONSULTATION CONSULTATION DATE: 04/23/2022 HISTORY [...] will contact the office as needed. [facility] 03-19-2022 Note CONSULTATION CONSULTATION DATE: 03/19/2022 [...] followed up in the clinic thereafter. [facility] 07-22-2021 Note OPERATIVE NOTE OPERATION DATE:07/22/2021 [...] Will be followed up in the office. [facility] Signed and Approved by: DR ABNER WASHINGTON . 07/29/2021 12:16:00 [facility] 07-16-2021 Note PROCEDURE: XR SHOULD ER [...] by: OTF LIAO Date: 2021-07-16 15:31 [facility] 07-16-2021 Note CONSULTATION PAIN MANAGEMENT CONSULTATION [...] plan of care and all questions answered. [facility] Signed and Approved by: JESSE WOOD . 07/17/2021 16:20:00 [facility] Evaluation note Diagnosis Pre-op testing Preoperative examination, unspecified Screening for colon cancer Special screening for malignant neoplasms, colon [facility]: evaluation note* Diagnosis Actinic keratosis- [...] Primary Stage 3a chronic kidney disease (HCC) ([facility]/HCC) Type 2 diabetes mellitus with hyperglycemia ([facility]/HCC) Mixed hyperlipidemia ([facility]) Mixed hyperlipidemia documented in this encounter [facility] [...] Documents on File Type Date Recorded 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 Pretty Ames Referral Date : 03/14/20 Diagnosis: R shoulder IS, AC, OA Treatment Diagnosis: R shoulder pain Onset Date: 03/14/20 PT Insurance Information: [employer] Total # of Visits Approved: 18 Per [...] 45deg of IR to improve dressing kenrick. [facility] goals Time Frame for [facility] goals : 15 visits(POC Exp 04/30/19) [facility] goal 1: Pt to score >51/80 on UEFS to improve ADL kenrick long term care administrator goal 2: Pt to have ER of 55deg to improve upper body dressing. long term care administrator goal 3: Pt to have 4/5 Horiz ABD strength to improve pt posture. [facility] goal 4: Pt to have 4/5 ER strength without pain to improve ADL kenrick. Patient's Goal: Patient goals : Relieve his shoulder pain so he can complete ADLs and hobbies Timed Code Treatment Minutes: 0 Minutes Total Treatment Time: 45 Time In: 0835 Time Out: 09 Danay Can, PT Date: 03/19/2020 documented in this encounter* Rosalino Singh, [employer] CONSULTANT - 03/21/2020 10:30 AM EST [facility] Daily Note Date: 03/21/2020 Patient Name: Tony Starks : 1945 (74 y.o.) Referring Practitioner: Dr. Pretty Ames Referral Date : 03/14/20 Diagnosis: R shoulder IS, AC, OA Treatment Diagnosis: R shoulder pain Onset Date: 03/14/20 PT Insurance Information: [employer] Total # of Visits Approved: 18 Per [...] 45deg of IR to improve dressing kenrick. Longterm Goals - Time Frame for [facility] goals : 15 visits(POC Exp 04/30/19) [facility] goal 1: Pt to score >51/80 on UEFS to improve ADL kenrick long term care administrator goal 2: Pt to have ER of 55deg to improve upper body dressing. [facility] goal 3: Pt to have 4/5 Horiz ABD strength to improve pt posture. [facility] goal 4: Pt to have 4/5 ER strength without pain to improve ADL kenrick. Post Treatment Pain: 05/15 Time In: 1030 Time Out : 1110 Timed Code Treatment Minutes: 40 Minutes Total Treatment Time: 40 Minutes Rosalino Singh PTA Date: 03/21/2020 documented in this encounter* Danay Can, PT - 03/26/2020 10:15 AM EST [facility] Daily Note Date: 03/26/2020 Patient Name: Tony Starks : 1945 (74 y.o.) Referring Practitioner: Dr. Pretty Ames Referral Date : 03/14/20 Diagnosis: R shoulder IS, AC, OA Treatment Diagnosis: R shoulder pain Onset Date: 03/14/20 PT Insurance Information: [employer] Total # of Visits Approved: 18 Per [...] 45deg of IR to improve dressing kenrick. Manager Of Sustainability Goals - Time Frame for long term care administrator goals : 15 visits(POC Exp 04/30/19) [facility] goal 1: Pt to score >51/80 on UEFS to improve ADL kenrick long term care administrator goal 2: Pt to have ER of 55deg to improve upper body dressing. [facility] goal 3: Pt to have 4/5 Horiz ABD strength to improve pt posture. [facility] goal 4: Pt to have 4/5 ER strength without pain to improve ADL kenrick. Post Treatment Pain: 04/14 Time In: 1019 Time Out: 1059 Timed Code Treatment Minutes: 40 Minutes Total Treatment Time: 40 Minutes Danay Can, PT Date: 03/26/2020 documented in this encounter* Jessica Albarado, PT - 03/27/2020 2:30 PM EST [facility] Daily Note Date: 03/27/2020 Patient Name: Tony Starks : 1945 (74 y.o.) Referring Practitioner: Dr. Pretty Ames Referral Date : 03/14/20 Diagnosis: R shoulder IS, AC, OA Treatment Diagnosis: R shoulder pain Onset Date: 03/14/20 PT Insurance Information: [employer] Total # of Visits Approved: 18 Per [...] 45deg of IR to improve dressing kenrick. Longterm Goals - Time Frame for long term care administrator goals : 15 visits(POC Exp 04/30/19) long term care administrator goal 1: Pt to score >51/80 on UEFS to improve ADL kenrick [facility] goal 2: Pt to have ER of 55deg to improve upper body dressing. long term care administrator goal 3: Pt to have 4/5 Horiz ABD strength to improve pt posture. [facility] goal 4: Pt to have 4/5 ER strength without pain to improve ADL kenrick. Post Treatment Pain: 05/15 Time In: 1440 Time Out : 1525 Timed Code Treatment Minutes: 40 Minutes Total Treatment Time: 40 Minutes JESSICA ALBARADO PT Date: 03/27/2020 documented in this encounter* Rosalino Singh, [employer] E[employer] CONSULTANT - 04/09/2020 10:30 AM EST [facility] Daily Note Date: 04/09/2020 Patient Name: Tony Starks : 1945 (74 y.o.) Referring Practitioner: Dr. Pretty Ames Referral Date : 03/14/20 Diagnosis: R shoulder IS, AC, OA Treatment Diagnosis: R shoulder pain Onset Date: 03/14/20 PT Insurance Information: [employer] Total # of Visits Approved: 18 Per [...] IR to improve dressing kenrick. - [facility] Manager Of Sustainability Goals - Time Frame for [facility] goals : 15 visits(POC Exp 04/30/19) long term care administrator goal 1: Pt to score >51/80 on UEFS to improve ADL kenrick long term care administrator goal 2: Pt to have ER of 55deg to improve upper body dressing. - MET long term care administrator goal 3: Pt to have 4/5 Horiz ABD strength to improve pt posture. long term care administrator goal 4: Pt to have 4/5 ER strength without pain to improve ADL kenrick. Post Treatment Pain: 2-06/12 Time In: 1030 Time Out : 1115 Timed Code Treatment Minutes: 45 Minutes Total Treatment Time: 45 Minutes Rosalino Singh PTA Date: 04/09/2020 documented in this encounter* Danay Can, PT - 04/11/2020 10:30 AM EST [facility] Daily Note Date: 04/11/2020 Patient Name: Tony Starks : 1945 (74 y.o.) Referring Practitioner: Dr. Pretty Ames Referral Date : 03/14/20 Diagnosis: R shoulder IS, AC, OA Treatment Diagnosis: R shoulder pain Onset Date: 03/14/20 PT Insurance Information: [employer] Total # of Visits Approved: 18 Per [...] IR to improve dressing kenrick. - MET Longterm Goals - Time Frame for [facility] goals : 15 visits(POC Exp 04/30/19) [facility] goal 1: Pt to score >51/80 on UEFS to improve ADL kenrick [facility] goal 2: Pt to have ER of 55deg to improve upper body dressing. - MET [facility] goal 3: Pt to have 4/5 Horiz ABD strength to improve pt posture. [facility] goal 4: Pt to have 4/5 ER strength without pain to improve ADL kenrick. Post Treatment Pain: 2/10 Time In: 1030 Time Out : 1113 Timed Code Treatment Minutes: 43 Minutes Total Treatment Time: 43 Minutes Danay Can, BRUCE Date: 04/11/2020 documented in this encounter* Benitez Bobo - 04/15/2020 10:30 AM EST [facility] Progress Report Date: 04/15/2020 Patient: Tony Starks : 1945 Referring Practitioner: Dr. Pretty Ames Referral Date : 03/14/20 Diagnosis: R shoulder IS, AC, OA Treatment Diagnosis: R shoulder pain Onset Date: 03/14/20 PT Insurance Information: [employer] Total # of Visits Approved: 18 Per [...] IR to improve dressing kenrick. - MET [facility] goals Time Frame for [facility] goals : 15 visits(POC Exp 04/30/19) [facility] goal 1: Pt to score >51/80 on UEFS to improve ADL kenrick [facility] goal 2: Pt to have ER of 55deg to improve upper body dressing. - MET long term care administrator goal 3: Pt to have 4/5 Horiz ABD strength to improve pt posture. [facility] goal 4: Pt to have 4/5 ER strength without pain to improve ADL kenrick. Benitez Bobo, PATRICKA/Directly Supervised By:Danay Can, PT Date: 04/15/2020 * Benitez Bobo - 04/15/2020 10:30 AM EST [facility] Daily Note Date: 04/15/2020 Patient Name: Tony Starks : 1945 (74 y.o.) Referring Practitioner: Dr. Pretty Ames Referral Date : 03/14/20 Diagnosis: R shoulder IS, AC, OA Treatment Diagnosis: R shoulder pain Onset Date: 03/14/20 PT Insurance Information: [employer] Total # of Visits Approved: 18 Per [...] IR to improve dressing kenrick. - MET Manager Of Sustainability Goals - Time Frame for long term care administrator goals : 15 visits(POC Exp 04/30/19) [facility] goal 1: Pt to score >51/80 on UEFS to improve ADL kenrick long term care administrator goal 2: Pt to have ER of 55deg to improve upper body dressing. - MET [facility] goal 3: Pt to have 4/5 Horiz ABD strength to improve pt posture. long term care administrator goal 4: Pt to have 4/5 ER [...] Worthington, PT - 05/29/2020 11:00 AM EST [facility] Evaluation Date: 05/29/2020 Patient: Tony Starks : 1945 Referring Practitioner: Dr. Pretty Ames Referral Date : 05/23/20 Diagnosis: R shoulder scope, LHB debridment, SAD, RCR Treatment Diagnosis: R shoulder pain s/p RTC sx Onset Date: 05/09/20 PT Insurance Information: [employer] Total # of Visits Approved: 18 Per [...] increase PROM R shld flexion 145 degrees [facility] goals Time Frame for long term care administrator goals : 18 visits [facility] goal 1: Pt to have improved functional activitities with UEFS score >50/80 long term care administrator goal 2: Pt to demonstrate 135deg AROM shoulder flexion to improve ability to reach into cupboards long term care administrator goal 3: Pt to demonstrate 4/5 shoulder [...] Worthington, PT - 06/05/2020 10:30 AM EST [facility] Daily Note Date: 06/05/2020 Patient Name: Tony A Raudel : 1945 (74 y.o.) Referring Practitioner: Dr. Pretty Ames Referral Date : 05/23/20 Diagnosis: R shoulder scope, LHB debridment, SAD, RCR Treatment Diagnosis: R shoulder pain s/p RTC sx Onset Date: 05/09/20 PT Insurance Information: [employer] Total # of Visits Approved: 18 Per [...] increase PROM R shld flexion 145 degrees Longterm Goals - Time Frame for [facility] goals : 18 visits long term care administrator goal 1: Pt to have improved functional activitities with UEFS score >50/80 [facility] goal 2: Pt to demonstrate 135deg AROM shoulder flexion to improve ability to reach into cupboards long term care administrator goal 3: Pt to demonstrate 4/5 shoulder horizontal abd strength to improve ADLs and posture. Post Treatment Pain: 05/15 Time In: 10:30 Time Out : 11:00 Timed Code Treatment Minutes: 30 Minutes Total Treatment Time: 30 Minutes Quynh Worthington, PT Date: 06/05/2020 documented in this encounter* Quynh Worthington, PT - 06/07/2020 11:15 AM EST [facility] Daily Note Date: 06/07/2020 Patient Name: Tony Starks : 1945 (74 y.o.) Referring Practitioner: Dr. Pretty Ames Referral Date : 05/23/20 Diagnosis: R shoulder scope, LHB debridment, SAD, RCR Treatment Diagnosis: R shoulder pain s/p RTC sx Onset Date: 05/09/20 PT Insurance Information: [employer] Total # of Visits Approved: 18 Per [...] increase PROM R shld flexion 145 degrees-Met Longterm Goals - Time Frame for long term care administrator goals : 18 visits [facility] goal 1: Pt to have improved functional activitities with UEFS score >50/80 long term care administrator goal 2: Pt to demonstrate 135deg AROM shoulder flexion to improve ability to reach into cupboards long term care administrator goal 3: Pt to demonstrate 4/5 shoulder horizontal abd strength to improve ADLs and posture. Post Treatment Pain: 05/15 Time In: 11:15 Time Out : 11:45 Timed Code Treatment Minutes: 30 Minutes Total Treatment Time: 30 Minutes Quynh Worthington PT Date: 06/07/2020 documented in this encounter* Nathalie Burnham - 06/10/2020 10:30 AM EST Images from the original note were not included. [facility] Daily Note Date: 06/10/2020 Patient Name: Tony Starks : 1945 (74 y.o.) Referring Practitioner: Dr. Pretty Ames Referral Date : 05/23/20 Diagnosis: R shoulder scope, LHB debridment, SAD, RCR Treatment Diagnosis: R shoulder pain s/p RTC sx Onset Date: 05/09/20 PT Insurance Information: [employer] Total # of Visits Approved: 18 Per [...] increase PROM R shld flexion 145 degrees-Met Longterm Goals - Time Frame for [facility] goals : 18 visits [facility] goal 1: Pt to have improved functional activitities with UEFS score >50/80 [facility] goal 2: Pt to demonstrate 135deg AROM shoulder flexion to improve ability to reach into cupboards long term care administrator goal 3: Pt to demonstrate 4/5 shoulder horizontal abd strength to improve ADLs and posture. Post Treatment Pain: 05/15 Time In: 1030 Time Out : 1105 Timed Code Treatment Minutes: 35 Minutes Total Treatment Time: 35 Minutes Nathalie Burnham [employer]SULTANT Date: 06/10/2020 documented in this encounter* Nathalie Burnham - 06/14/2020 11:15 AM EST Images from the original note were not included. [facility] Daily Note Date: 06/14/2020 Patient Name: Tony Starks : 1945 (74 y.o.) Referring Practitioner: Dr. Pretty Ames Referral Date : 05/23/20 Diagnosis: R shoulder scope, LHB debridment, SAD, RCR Treatment Diagnosis: R shoulder pain s/p RTC sx Onset Date: 05/09/20 PT Insurance Information: [employer] Total # of Visits Approved: 18 Per [...] increase PROM R shld flexion 145 degrees-Met Longterm Goals - Time Frame for [facility] goals : 18 visits [facility] goal 1: Pt to have improved functional activitities with UEFS score >50/80 [facility] goal 2: Pt to demonstrate 135deg AROM shoulder flexion to improve ability to reach into cupboards [facility] goal 3: Pt to demonstrate 4/5 shoulder horizontal abd strength to improve ADLs and posture. Post Treatment Pain: 0/10 Time In: 1115 Time Out : 1155 Timed Code Treatment Minutes: 40 Minutes Total Treatment Time: 40 Minutes Nathalie Burnham [employer] CONSULTANT Date: 06/14/2020 documented in this encounter* Quynh Worthington, PT - 06/19/2020 1:45 PM EDT Images from the original note were not included. [facility] Daily Note Date: 06/19/2020 Patient Name: Tony Starks : 1945 (74 y.o.) Referring Practitioner: Dr. Pretty Ames Referral Date : 05/23/20 Diagnosis: R shoulder scope, LHB debridment, SAD, RCR Treatment Diagnosis: R shoulder pain s/p RTC sx Onset Date: 05/09/20 PT Insurance Information: [employer] Total # of Visits Approved: 18 Per [...] increase PROM R shld flexion 145 degrees-Met Manager Of Sustainability Goals - Time Frame for long term care administrator goals : 18 visits long term care administrator goal 1: Pt to have improved functional activitities with UEFS score >50/80 [facility] goal 2: Pt to demonstrate 135deg AROM shoulder flexion to improve ability to reach into cupboards-Met long term care administrator goal 3: Pt to demonstrate 4/5 shoulder horizontal abd strength to improve ADLs and posture. Post Treatment Pain: 05/15 Time In: 13:45 Time Out : 14:15 Timed Code Treatment Minutes: 30 Minutes Total Treatment Time: 30 Minutes Quynh Worthington, PT Date: 06/19/2020 documented in this encounter* Alisia Sapp - 06/21/2020 11:15 AM EDT Images from the original note were not included. [facility] Daily Note Date: 06/21/2020 Patient Name: Tony Starks : 1945 (74 y.o.) Referring Practitioner: Dr. Pretty Ames Referral Date : 05/23/20 Diagnosis: R shoulder scope, LHB debridment, SAD, RCR Treatment Diagnosis: R shoulder pain s/p RTC sx Onset Date: 05/09/20 PT Insurance Information: [employer] Total # of Visits Approved: 18 Per [...] increase PROM R shld flexion 145 degrees-Met Manager Of Sustainability Goals - Time Frame for long term care administrator goals : 18 visits [facility] goal 1: Pt to have improved functional activitities with UEFS score >50/80 long term care administrator goal 2: Pt to demonstrate 135deg AROM shoulder flexion to improve ability to reach into cupboards-Met [facility] goal 3: Pt to demonstrate 4/5 shoulder horizontal abd strength to improve ADLs and posture. Post Treatment Pain: 1/10 Time In: 1115 Time Out : 1154 Timed Code Treatment Minutes: 39 Minutes Total Treatment Time: 39 Minutes Alisia Sapp,[employer] EBS CONSULTANT Date: 06/21/2020 documented in this encounter* Alisia Sapp - 06/24/2020 1:45 PM EDT Images from the original note were not included. [facility] Daily Note Date: 06/24/2020 Patient Name: Tony Starks : 1945 (75 y.o.) Referring Practitioner: Dr. Pretty Ames Referral Date : 05/23/20 Diagnosis: R shoulder scope, LHB debridment, SAD, RCR Treatment Diagnosis: R shoulder pain s/p RTC sx Onset Date: 05/09/20 PT Insurance Information: [employer] Total # of Visits Approved: 18 Per [...] increase PROM R shld flexion 145 degrees-Met Manager Of Sustainability Goals - Time Frame for [facility] goals : 18 visits long term care administrator goal 1: Pt to have improved functional activitities with UEFS score >50/80 [facility] goal 2: Pt to demonstrate 135deg AROM shoulder flexion to improve ability to reach into cupboards-Met long term care administrator goal 3: Pt to demonstrate 4/5 shoulder horizontal abd strength to improve ADLs and posture. Post Treatment Pain: 1-2 Time In: 1341 Time Out : 1422 Timed Code Treatment Minutes: 43 Minutes Total Treatment Time: 43 Minutes Alisia SappORACLE EBS CONSULTANT Date: 06/24/2020 documented in this encounter* Quynh Worthington, PT - 06/26/2020 11:15 AM EDT Images from the original note were not included. [facility] Progress Report Date: 06/26/2020 Patient: Tony Starks : 1945 Referring Practitioner: Dr. Pretty Ames Referral Date : 05/23/20 Diagnosis: R shoulder scope, LHB debridment, SAD, RCR Treatment Diagnosis: R shoulder pain s/p RTC sx Onset Date: 05/09/20 PT Insurance Information: [employer] Total # of Visits Approved: 18 Per [...] increase PROM R shld flexion 145 degrees-Met long term care administrator goals Time Frame for [facility] goals : 18 visits [facility] goal 1: Pt to have improved functional activitities with UEFS score >50/80 [facility] goal 2: Pt to demonstrate 135deg AROM shoulder flexion to improve ability to reach into cupboards-[facility] goal 3: Pt to demonstrate 4/5 shoulder horizontal abd strength to improve ADLs and posture. Nathalie Aureliano Chacha [employer] E[employer] CONSULTANT Date: 06/26/2020 * Nathalie Burnham - 06/26/2020 11:15 AM EDT Images from the original note were not included. [facility] Daily Note Date: 06/26/2020 Patient Name: Tony Starks : 1945 (75 y.o.) Referring Practitioner: Dr. Pretty Ames Referral Date : 05/23/20 Diagnosis: R shoulder scope, LHB debridment, SAD, RCR Treatment Diagnosis: R shoulder pain s/p RTC sx Onset Date: 05/09/20 PT Insurance Information: [employer] Total # of Visits Approved: 18 Per [...] increase PROM R shld flexion 145 degrees-Met Manager Of Sustainability Goals - Time Frame for long term care administrator goals : 18 visits long term care administrator goal 1: Pt to have improved functional activitities with UEFS score >50/80 [facility] goal 2: Pt to demonstrate 135deg AROM shoulder flexion to improve ability to reach into cupboards-[facility] goal 3: Pt to demonstrate 4/5 shoulder horizontal abd strength to improve ADLs and posture. Post Treatment Pain: 210 Time In: 1112 Time Out : 1150 Timed Code Treatment Minutes: 38 Minutes Total Treatment Time: 38 Minutes Nathalie Burnham [employer] E[employer] CONSULTANT Date: 06/26/2020 documented in this encounter* MichaelAlisia dorsey S - 07/01/2020 11:15 AM EDT Images from the original note were not included. [facility] Daily Note Date: 07/01/2020 Patient Name: Tony Starks : 1945 (75 y.o.) Referring Practitioner: Dr. Pretty Ames Referral Date : 05/23/20 Diagnosis: R shoulder scope, LHB debridment, SAD, RCR Treatment Diagnosis: R shoulder pain s/p RTC sx Onset Date: 05/09/20 PT Insurance Information: [employer] Total # of Visits Approved: 18 Per [...] increase PROM R shld flexion 145 degrees-Met Manager Of Sustainability Goals - Time Frame for long term care administrator goals : 18 visits [facility] goal 1: Pt to have improved functional activitities with UEFS score >50/80 long term care administrator goal 2: Pt to demonstrate 135deg AROM shoulder flexion to improve ability to reach into cupboards-[facility] goal 3: Pt to demonstrate 4/5 shoulder horizontal abd strength to improve ADLs and posture. Post Treatment Pain: 0/10 Time In: 1114 Time Out : 1153 Timed Code Treatment Minutes: 39 Minutes Total Treatment Time: 39 Minutes Alisia Sapp ,[employer] EBS CONSULTANT Date: 07/01/2020 documented in this encounter* Quynh Worthington, PT - 07/03/2020 11:15 AM EDT Images from the original note were not included. [facility] Daily Note Date: 07/03/2020 Patient Name: Tony Starks : 1945 (75 y.o.) Referring Practitioner: Dr. Pretty Ames Referral Date : 05/23/20 Diagnosis: R shoulder scope, LHB debridment, SAD, RCR Treatment Diagnosis: R shoulder pain s/p RTC sx Onset Date: 05/09/20 PT Insurance Information: [employer] Total # of Visits Approved: 18 Per [...] increase PROM R shld flexion 145 degrees-[facility] Manager Of Sustainability Goals - Time Frame for long term care administrator goals : 18 visits long term care administrator goal 1: Pt to have improved functional activitities with UEFS score >50/80 long term care administrator goal 2: Pt to demonstrate 135deg AROM shoulder flexion to improve ability to reach into cupboards-[facility] goal 3: Pt to demonstrate 4/5 shoulder horizontal abd strength to improve ADLs and posture.-[facility] Post Treatment Pain: 2 Time In: 11:15 Time Out : 11:55 Timed Code Treatment Minutes: 40 Minutes Total Treatment Time: 40 Minutes Quynh Worthington, PT Date: 07/03/2020 documented in this encounter* Alisia Sapp - 07/15/2020 11:15 AM EDT Images from the original note were not included. [facility] Daily Note Date: 07/15/2020 Patient Name: Tony Starks : 1945 (75 y.o.) Referring Practitioner: Dr. Pretty Ames Referral Date : 05/23/20 Diagnosis: R shoulder scope, LHB debridment, SAD, RCR Treatment Diagnosis: R shoulder pain s/p RTC sx Onset Date: 05/09/20 PT Insurance Information: [employer] Total # of Visits Approved: 18 Per [...] increase PROM R shld flexion 145 degrees-Met Longterm Goals - Time Frame for [facility] goals : 18 visits [facility] goal 1: Pt to have improved functional activitities with UEFS score >50/80-MET [facility] goal 2: Pt to demonstrate 135deg AROM shoulder flexion to improve ability to reach into cupboards-Met [facility] goal 3: Pt to demonstrate 4/5 shoulder horizontal abd strength to improve ADLs and posture.-Met Post Treatment Pain: 0/10 Time In: 1115 Time Out : 1154 Timed Code Treatment Minutes: 39 Minutes Total Treatment Time: 39 Minutes Alisia Sapp,[employer] CONSULTANT Date: 07/15/2020 documented in this encounter Reason for Referral Status Reason Specialty Diagnoses / Procedures Referre d By Contact Referred To Contact Closed Radiology Diagnoses Impingement syndrome of right shoulder Procedures MRI SHOULDER RIGHT WO CONTRAST Pretty Ames, DO [address] [place] [address] [facility] [address] [place] [address] Specialty Diagnoses / Procedures Referred By Contac t Referred To Contact Cardiology Diagnoses Pre-op testing Procedures EKG 12 Lead Back, MD Brian [address] [place] [id number] Referral ID Status Reason Start Date Expiration Date Visits Re quested Visits Authorized [id number] Open 04/20/2022 04/20/2023 1 1 Discharge Instructions [...] meditation. You may begin using Tylenol or [id number] Ibuprofen or Motrin for pain should you [...] from the original note were not included. [facility] Discharge Summary Patient: [...] RIGHT WO CONTRAST Pretty Ames DO [address] [place] [address] [facility] [address] [place] [address] Status Reason Specialty Diagnoses / Procedures Referre d By Contact Referred To Contact Diagnoses Unspecified rotator cuff tear or rupture of right shoulder, not specified as traumatic RIGHT SHOULDER ROTATOR CUFF TEAR....BICEP TENDONITIS Procedures OK SHLDR ARTHROSCOP,SURG,W/ROTAT CUFF REPR RIGHT SHOULDER ARTHROSCOPY PROBABLE ROTATOR CUFF REPAIR... LONG HEAD BICEPS TENODESIS Pretty Ames, DO [address] [place] [address] [facility] Reason Comments Follow-up Reason Onset Date [...] Care Teams (unrecognized sec tion and content) Public Safety Police Relationship Specialty Start Date End Date Daniel Pop DO [address] [place] [id number] PCP - General Family Medicine 11/24/16 Public Safety Police Relationship Specialty Start Date End Date Daniel Pop DO [address] [place] [address] PCP - General Family Medicine 10/14/22 Laya Plata, CABLE SPLICER APPRENTICE [address] [place] [address] PCP - ACO Reach 01/04/24 Laya Plata, CABLE SPLICER APPRENTICE [address] [place] [address] Nurse Practitioner Family Medicine 10/14/22 Public Safety Police Relationship Specialty Start Date End Date Daniel Pop DO [address] [place] [address] PCP - General Family Medicine 10/14/22 Laya Plata, CABLE SPLICER APPRENTICE [address] [place] [address] PCP - ACO Reach 01/04/24 Laya Plata, CABLE SPLICER APPRENTICE [address] [place] [address] Nurse Practitioner Family Medicine 10/14/22 Public Safety Police Relationship Specialty Start Date End Date Daniel Pop DO [address] [place] [address] PCP - General Family Medicine 10/14/22 Laya Plata, CABLE SPLICER APPRENTICE [address] [place] [address] PCP - ACO Reach 01/04/24 Laya Plata, CABLE SPLICER APPRENTICE [address] [place], [place] [id number] Nurse Practitioner Family Medicine 10/14/22 Public Safety Police Relationship Specialty Start Date End Date Daniel Pop DO [address] [place] [address] PCP - General Family Medicine 10/14/22 Laya Plata, CABLE SPLICER APPRENTICE [address] [place] [address] PCP - ACO Reach 01/04/24 Laya Plata, CABLE SPLICER APPRENTICE [address] [place] [address] Nurse Practitioner Family Medicine 10/14/22 Public Safety Police Relationship Specialty Start Date End Date Daniel Pop DO [address] [place] [address] PCP - General Family Medicine 10/14/22 Laya Plata, CABLE SPLICER APPRENTICE [address] [place] [address] PCP - ACO Reach 01/04/24 Laya Plata, CABLE SPLICER APPRENTICE [address] [place] [address] Nurse Practitioner Family Medicine 10/14/22 (unrecognized sect ion and content) No Status Records FoundNo Status Records FoundNo Status Records FoundNo Status Records Found INFORMATION SOURCE (unrecogn ized section and content) DATE CREATED AUTHOR 04/29/2022 [facility] DATE CREATED AUTHOR AUTHOR'S ORGANIZ ATION 02/03/2023 [facility] DATE CREATED AUTHOR AUTHOR'S ORGANIZ ATION 06/19/[address] [facility] DATE CREATED AUTHOR AUTHOR'S ORGANIZ ATION 01/18/2024 [facility] FOR RECORDS PERTAINING TO PATIENTS WHO ARE [...] BE BASED ON THE PRIMARY CLINICAL RECORDS. [facility] [place] [facility]. provides no warranty or guarantee of the accuracy or completeness of information in this document.
== END 2024-03-07 13:35 | disposition home or self-care (01) ==
LOC: PM 13:35
PROVIDERS: Visit Provider Anesthesiology Pain Medicine
DX: M25.512 Pain in left shoulder (principal)
CPT/HCPCS: 64418; J0665; J3301

== ENCOUNTER 2024-03-31 07:43 | Outpatient (OUT) | payer MEDICARE, OTHER, SELFPAY ==
--- NOTE | 2024-03-31 07:46 | MR_ITS ---
[place] [id number] Patient Name: CHEPE DIAZ MRN: [id number] date: 1945 Sex: M Assigned Patient Location: MRI Current Patient Location: Accession/Order Number: [id number] Exam Date: 03/31/2024 07:55 Report Date: 04/03/2024 09:47 At the request of: PREETHI SHAVER Procedure: MR shoulder LT wo con EXAMINATION: MR shoulder LT wo con HISTORY: Left Shoulder Pain COMPARISON: No relevant comparison available. TECHNIQUE: A variety of imaging planes and parameters were utilized for visualization of suspected pathology. Imaging was performed without or with contrast as indicated by examination type. FINDINGS: ROTATOR CUFF REGION CUFF TENDONS: Moderate increased signal intensity in the supraspinatus tendon indicates tendon degeneration and/or tendinitis. No madhu tear is seen. CUFF MUSCLES: Normal appearing muscles. DELTOID: Normal. No significant atrophy or tear. LONG BICEPS TENDON: Normal. No abnormal signal, attrition, or tear. LABRUM/BICEPS ANCHOR SUPERIOR: Tear of the superior labrum. ANTERIOR/INFERIOR: No visible tear or attrition. POSTERIOR: No posterior labrum abnormality. CAPSULE No visible capsular laxity or thickening. AC JOINT REGION AC JOINT: Moderate-marked degenerative changes with large undersurface osteophyte indenting the supraspinatus muscle. AC LIGAMENTS: Normal acromioclavicular ligament. CC LIGAMENTS: Normal coracoclavicular ligaments. ACROMION: Mild lateral downsloping. SUBACROMIAL BURSA: Trace amount of fluid within the subdeltoid bursa. HYALINE CARTILAGE: Normal. No visible cartilage narrowing or focal defect. OTHER BONES: Normal proximal humerus, glenoid, and coracoid. OTHER OBSERVATIONS: Negative. No other significant findings or glenohumeral effusion. MR/MR shoulder LT wo con IMPRESSION: 1. Degenerative changes of the acromioclavicular joint with large undersurface osteophyte impinging upon the supraspinatus muscle. 2. Moderate strain of the supraspinatus tendon. 3. Suspected tear of the superior labrum. Electronically authenticated by: OTF LIAO Date: 04/03/2024 09:47
--- OUTSIDE RECORDS SUMMARY | 2024-03-31 07:46 | XMS_ITS | CCD ---
Author Organization [facility] Care Team Providers Care Weld Fitter Name Role Phone Daniel Pop Primary Care [...] Daniel Pop DO Primary Care Provider Jay FLEXIBLE BABYSITTER, Laya L Unavailable Jay FLEXIBLE BABYSITTER, Laya L Unavailable POCPRETTY WORKMAN Attending Unavailable NICOL SALGADO Attending Unavailable POCPRETTY WORKMAN Attending Unavailable POCPRETTY WORKMAN Referring Unavailable LAYA PLATA Attending Unavailable NICOL SALGADO Attending Unavailable LAYA PLATA Attending Unavailable NICOL SALGADO Attending Unavailable NICOL SALGADO Attending Unavailable LAYA PLATA Attending Unavailable Roseann HARRIS Daniel Pearl Unavailable Medications Current Medications Medication Drug Class(es) [...] apple cider vinegar 600 mg oral capsule (15 sources) take 1 capsule by mouth every eight hours Apple Cider Vinegar 600 MG capsule Take 1 tablet by mouth every 8 (eight) hours. Active APPLE CIDER VINE GAR PO Take by mouth 0 Active ascorbic acid 500 mg oral capsule (14 sources) Vitamin C Ascorbic Acid (V itamin [...] oral tablet (20 sources) beta-Adrenergic Kostas Start: 07-19-2023 End: 01-17-2024 take 1 tablet by mouth once daily atenolol (Tenormin) 50 MG tablet Indications: Primary hypertension (CMS/HCC) TAKE 1 TABLET BY MOUTH DAILY AT THE SAME TIME EACH DAY 90 tablet 1 01/17/2024 Active take 1 tablet by mouth once felisa y atenolol (TENORMIN) 50 MG tablet Take 50 [...] 0 Active cholecalciferol 0.05 mg oral tablet (14 sources) Vitamin D cholecalciferol (Vitamin D-3) 50 [...] 05/09/2020 Active famotidine 20 mg oral tablet (15 sources) Histamine-2 Receptor Antagonist Start: 06-21-2023 take 1 tablet by mouth in the morning famotidine (Pepcid) 20 MG tablet Indications: Chronic GERD Take 1 tablet (20 mg) by mouth in the morning and 1 tablet (20 mg) before bedtime. 180 tablet 3 06/21/2023 Active Start: 02-02-2022 famotidine (PE PCID) 20 MG tablet fluticasone propionate 0.05 mg/actuat metered dose nasal spray (16 sources) Corticosteroid Start: 12-09-2023 take 1 spray(s) nasal route once daily fluticasone (Flonase) 50 MCG/ACT nasal spray Indications: Environmental and seasonal allergies Administer 1 spray into each nostril Daily Shake gently. Before first use, prime pump. After use, clean tip and replace cap. 48 mL 3 12/09/2023 Active Start: 01-07-2023 End: 12-09-2023 take 1 spray(s) nasal route twice daily fluticasone (Flonase) 50 MCG/ACT nasal spray Indications: Environmental and seasonal allergies SPRAY ONE SPRAY INTO EACH NOSTRIL TWO TIMES DAILY 48 mL 3 01/07/2023 12/09/2023 Discontinued (Reorder) FLUTICASONE PROP IONATE, NASAL, NA by Nasal route 0 Active hydroCHLOROthiazide 25 mg oral tablet (20 sources) Thiazide Diuretic Start: 04-20-2023 End: 11-24-2023 take 1 tablet by mouth once [...] mellitus with other specified complication, unspecified whether half-way insulin use (CMS/HCC) Inject 34 Units under [...] before bedtime. 180 tablet 1 12/13/2023 Active Start: 05-24-2023 End: 12-13-2023 take 1 tablet by mouth in the morning lisinopril 20 MG tablet Indications: Primary hypertension (CMS/HCC) Take 1 tablet (20 mg) by mouth in the morning and 1 tablet (20 mg) before bedtime. 180 tablet 1 12/13/2023 Active take 2 tablets by mo [facility] twice daily lisinopril (PRINIVIL;ZESTRIL) 10 MG tablet Take 20 mg by mouth 2 times daily 0 Active loratadine 10 mg oral tablet (20 sources) Start: 03-02-2023 End: 01-17-2024 take 1 tablet by mouth once daily loratadine (Claritin) 10 MG tablet Indications: Environmental and seasonal allergies Take 1 tablet (10 mg) by mouth Daily 09/17/2023 12/16/2023 Active LORATADINE PO Ta ke 10 mg by mouth 0 Active magnesium sulfate 0.0277 meq/ml / potassium sulfate 0.0374 meq/ml / sodium sulfate 0.257 meq/ml oral solution (1 source) Start: 04-20-2022 pqojcd-vgvjdluow-fdp sulfate (SUPREP BOWEL PREP KIT) 17.5-3.13-1.6 GM/177ML SOLN solution Use as directed. 1 each 0 04/20/2022 Active Melatonin (1 source) MELATONIN PO Eric e by mouth 0 Active melatonin 3 mg / vitamin b6 10 mg oral tablet (14 sources) take 1 tablet by mouth at bedtime as needed Melatonin 3-10 MG tablet 1 tablet at bedtime as needed Orally at bedtime Active 24 hr metFORMIN hydrochloride 1000 mg / SITagliptin 50 mg extended release oral tablet (1 source) Biguanide, Dipeptidyl Peptidase 4 Inhibitor Start: 03-31-2022 JANUMET XR 50-1000 MG TB24 per extended release tablet Multiple Vitamins-Minerals (Multivitamin Adults 50+) tablet (14 sources) Multiple Vitamins-Minerals (Multivitamin Adults 50+) tablet [...] same time 90 capsule 3 12/13/2023 Active Start: 12-23-2022 End: 12-13-2023 take 1 capsule by mouth once daily omeprazole (PriLOSEC) [address] capsule Indications: Chronic GERD Take 1 capsule (20 mg) by mouth 1 (one) time each day at the same time 90 capsule 3 12/13/2023 Active take 1 capsule by mo [facility] once daily omeprazole (PRILOSEC) 20 MG capsule [...] 3 09/17/2023 Active [facility] daily in the evening sitaGLIPtin (JANUVIA) [...] vitamin b6 100 mg oral table t (15 sources) Pyridoxine HCl ( Vitamin B6) 100 MG tablet 1 (one) time each day at the same time. Active take 2 tablets by mouth once nik ly vitamin B-6 (PYRIDOXINE) 50 MG tablet Take 100 mg by mouth daily 0 Active Zinc (1 source) ZINC PO Take by mouth 0 Active zinc gluconate 30 mg oral ta blet (14 sources) zinc 30 MG table t 1 [...] Date Documented Date Episodic/Chronic Chronic kidney disease (20 sources) Chronic kidney disease stage 3A ; [...] hypertension] Onset: 11-09-2016 11-09-2016 Chronic Nutritional deficiencies (14 sources) Vitamin D deficiency; Translations: [Vitamin D deficiency, unspecified] Onset: 10-19-2022 10-19-2022 Chronic Other aftercare (1 source) senior living (current) use of insulin; Translations: [CARE HOME CURRENT USE OF INSULIN] Onset: 04-13-2022 Episodic [...] Onset: 04-13-2022 Chronic Other non-traumatic joint disorders (14 sources) Arthropathy of multiple joints; Translations: [Arthropathy, unspecified] Onset: 10-19-2022 10-19-2022 Chronic Other non-traumatic joint disorders (4 sources) Pain in left hip; Translations: [PAIN IN LEFT HIP] Onset: 03-19-2022 Episodic Other non-traumatic joint disorders (1 source) Arthritis of joint of right shoulder region; Translations: [Arthritis of right shoulder region] Other skin disorders (4 sources) Actinic keratosis; Translations: [Actinic keratosis] 01-10-2024 Episodic Other upper respiratory disease (15 sources) Allergic disposition; Translations: [Other allergic rhinitis] Onset: 10-19-2022 10-19-2022 Chronic Residual codes; unclassified (14 sources) Dependence on continuous positive airway pressure ventilation; Translations: [Dependence on other enabling machines and devices] Onset: 10-19-2022 10-19-2022 Chronic Residual codes; unclassified (14 sources) Obstructive sleep apnea syndrome; Translations: [Obstructive [...] Onset: 4 Resolved: 3 11-17-2013 Episodic Cataract (14 sources) Bilateral age-related cataract; Translations: [Unspecified age-related cataract] Onset: 3 Resolved: 4 09-15-2023 Chronic Gastritis and duodenitis (14 sources) Duodenitis; Translations: [Duodenitis without bleeding] Onset: 3 Resolved: 3 10-21-2022 Episodic Osteoarthritis (20 sources) Primary osteoarthritis, left shoulder; Translations: [Arthritis of right acromioclavicular joint] Onset: 2 Resolved: 4 05-21-2023 Chronic Other and unspecified benign neoplasm (2 sources) Senile angioma; Translations: [Hemangioma of skin and subcutaneous tissue] 11-30-2023 Episodic Other connective tissue disease (16 sources) Right rotator cuff syndrome; Translations: [Unspecified rotator cuff tear or rupture of right shoulder, not specified as traumatic] Onset: 1 Resolved: 3 05-09-2020 Episodic Other connective tissue disease (1 source) Other shoulder lesions, left shoulder; Translations: [OTHER SHOULDER LESIONS LT SHOULDER] Onset: 2 Episodic Other connective tissue disease (14 sources) Nontraumatic rotator cuff tear; Translations: [Unspecified rotator cuff tear or rupture of right shoulder, not specified as traumatic] Onset: 3 Resolved: 4 09-15-2023 Episodic Other connective tissue disease (14 sources) Tear of right rotator cuff; Translations: [Unspecified rotator cuff tear or rupture of right shoulder, not specified as traumatic] Onset: 3 Resolved: 4 09-15-2023 Episodic Other gastrointestinal disorders (14 sources) Swallowing finding; Translations: [Dysphagia, unspecified] Onset: 3 Resolved: 4 09-15-2023 Episodic Other male genital disorders (14 sources) Male erectile dysfunction, unspecified; Translations: [Impotence of organic origin] Onset: 3 Resolved: 4 09-15-2023 Chronic Other nervous system disorders (14 sources) Carpal tunnel syndrome of left wrist; Translations: [Carpal tunnel syndrome, left upper limb] Onset: 3 Resolved: 3 01-19-2023 Chronic Other non-traumatic joint disorders (7 sources) Pain in left shoulder; Translations: [PAIN IN LEFT SHOULDER] Onset: 2 Episodic Other nutritional; endocrine; and metabolic disorders (14 sources) Hypomagnesemia; Translations: [Hypomagnesemia] Onset: 3 Resolved: 4 10-19-2022 Chronic Residual codes; unclassified (20 sources) Sleep apnea; Translations: [Sleep apnea, unspecified] Onset: 7 Resolved: 3 11-09-2016 Chronic Results Test Name Value Interpretation Reference Range Facility No Panel InformationOrdered By: Birgit Hernandez on 01-10-2024 [facility] No Panel Informationon 11-29 [facility] XR CERVICAL SPINE (4-5 VIEWS )on 03-01-2023 [...] HISTORY: Left shoulder pain, unspecified chronicity COMPARISON: [place], 07/16/2021. IMPRESSION: FINDINGS/IMPRESSION: 1. Skin marker placed lateral to the acromion without underlying abnormality. 2. Moderate degenerative change acromioclavicular joint, similar to previous. 3. Mild narrowing glenohumeral joint. 4. Negative for calcific bursitis or fracture. Interpreted by: Cuba Noonan Jr., MD Signed by: Cuba Noonan Jr., MD 03/01/23 Final result Normal [facility] EKG 12 Leadon 04-20-2022 Atrial Rate 60 BPM [employer] Phone: P Burns 40 degrees [employer] Phone: P-R Interval 198 ms [employer] Phone: Q-T Interval 396 ms [employer] Phone: QRS Duration 96 ms [employer] Phone: QTc Calculation (Bazett) 396 ms [employer] Phone: R Burns 60 degrees [employer] Phone: T Burns 17 degrees [employer] Phone: Ventricular Rate 60 BPM BON [employer] Work Phone: Normal sinus rhythm Minimal voltage criteria for LVH, may be normal variant ( Sokolow-Ashby ) Borderline ECG [facility] BackBrian MD - 04/20/2022 Normal sinus rhythm Minimal voltage criteria for LVH, may be normal variant ( Sokolow-Ashby ) Borderline ECG HENRI [employer] Phone: [facility] [employer] Phone: POINT OF CARE GLUCOSEon -0 Glucose [Mass/Vol] 177 mg/dL Critically high 74-106 [facility] Comment on above: Performed By: #### P OCGLUC #### [facility] [address] [place] [address] Dr. Spencer Zabala COVID-19on 05-09-2020 SARS-CoV-2, Rapid Not Detected Not Detected [place], [place] Comment on above: Rapid NAAT: The [...] management decisions. Fact sheet for Healthcare Providers: https://www.fda.gov/media/898622/download Fact sheet for Patients: https://www.fda.gov/media/636697/download Methodology: Isothermal Nucleic Acid Amplification Source .THROAT [facility], [place] Glucose, Whole Bloodon 05-09 Glucose [Mass/Vol] 83 mg/dL 65 - 99 mg/dL [facility] [place] Glucose [Mass/Vol] 99 mg/dL 65 - 99 mg/dL [place] Otheron 05-09-2020 SARS-CoV-2 [place], [place] Basic Metabolic Panelon 04-06 Anion gap [Moles/Vol] 9 mmol/L 9 - 17 mmol/L [place] Bun/Cre Ratio 20 [place], [place] Calcium [Mass/Vol] 10.6 mg/dL High 8.6 - 10. 4 mg/dL [place] Chloride [Moles/Vol] 99 mmol/L 98 - 10 7 mmol/L [place] CO2 [Moles/Vol] 26 mmol/L 20 - 31 mmol/L [place] Creatinine [Mass/Vol] 1.26 mg/dL High 0.7 - 1.2 mg/dL [place] GFR >60 >60 mL/min [place] GFR Non- 56 mL/min Low >60 [place] GFR/1.73 sq M predicted among non-blacks MDRD (S/P/Bld) [Vol rate/Area] [place] Comment on above: Average GFR for 70 o r more years old: 75 mL/min/1.73sq m Chronic Kidney Disease: <60 mL/min/1.73sq m Kidney failure: <15 mL/min/1.73sq m eGFR calculated using average adult body mass. Additional eGFR calculator available at: http://www.MoPub/multiple_crcl_2012.htm GFR/1.73 sq M predicted among non-blacks MDRD (S/P/Bld) [Vol rate/Area] NOT REPORTED [place] Glucose [Mass/Vol] 155 mg/dL High 70 - 99 mg/dL [place] Interpretation and review of laboratory results Abnormal [place] Potassium [Moles/Vol] 4.5 mmol/L 3.7 - 5.3 mmol/L [place] Sodium [Moles/Vol] 134 mmol/L Low 135 - 144 mmol/L [place] Urea nitrogen [Mass/Vol] 25 mg/dL High 8 - 23 mg/dL [place] CBC Auto Differentialon 04-06 Basophils (Bld) [#/Vol] 0.00 10*3/uL [place] Basophils/100 WBC (Bld) 0 % 0 - 2 % [place] Differential Type YES [place] Eosinophils (Bld) [#/Vol] 0.20 10*3/uL [place] Eosinophils/100 WBC (Bld) 3 % 0 - 5 % [place] Erythrocyte distribution width (RBC) [Ratio] 14.2 % 12.1 - 15.2 % [place] Hematocrit (Bld) [Volume fraction] 43.0 % 41 - 53 % [place] Hemoglobin (Bld) [Mass/Vol] 14.6 g/dL 13.5 - 17.5 g/dL [place] Lymphocytes (Bld) [#/Vol] 1.70 10*3/uL [place] Lymphocytes/100 WBC (Bld) 23 % 13 - 44 % [place] MCH (RBC) [Entitic mass] 30.9 pg 26 - 34 pg [place] MCHC (RBC) [Mass/Vol] 33.9 g/dL 31 - 37 g/dL [place] MCV (RBC) [Entitic vol] 91.1 fL 80 - 100 fL [place] Monocytes (Bld) [#/Vol] 0.70 10*3/uL [place] Monocytes/100 WBC (Bld) 9 % 5 - 9 % [place] Platelet mean volume (Bld) [Entitic vol] NOT REPORTED 6 - 12 fL [place], [place] Platelets (Bld) [#/Vol] 237 10*3/uL [place] Platelets (Bld) [#/Vol] NOT REPORTED [place] RBC (Bld) [#/Vol] 4.73 10*6/uL 4.5 - 5.9 m/uL [place] RBC morphology finding Nom (Bld) NOT REPORTED [place] Segmented neutrophils/100 WBC (Bld) 65 % 39 - 75 % [place] Segs Absolute 4.90 [facility] [place] WBC (Bld) [#/Vol] NOT REPORTED per 100 WBC [place] WBC (Bld) [#/Vol] 7.6 10*3/uL [place] WBC Morphology NOT REPORTED [place] Otheron 05-02-2020 Immature granulocytes (Bld) [#/Vol] NOT REPORTED [place] XR CHEST (2 VW)on 05-02-2020 Likely mild symmetri c emphysematous overinflation. No acute changes. [place] EXAM: XR CHEST (2 VW ) HISTORY: Reason for exam:->Pre-op for rt shoulder scope. COMPARISON: None. TECHNIQUE: 2 views chest. FINDINGS: Likely mild emphysematous overinflation. Heart size normal. Lungs clear. [place], [facility] Incoming Radiant Results From [facility] - 05/02/2020 1:56 PM EST EXAM: XR CHEST (2 VW) HISTORY: Reason for exam:->Pre-op for rt shoulder scope. COMPARISON: None. TECHNIQUE: 2 views chest. FINDINGS: Likely mild emphysematous overinflation. Heart size normal. Lungs clear. IMPRESSION: Likely mild symmetric emphysematous overinflation. No acute changes. [place] MRI SHOULDER RIGHT WO CONTRA STon [...] clinical follow up to assess for stability. [facility], [place]AN CLINICAL HISTORY: Impingement syndrome of right shoulder [...] glenohumeral joint, with small inferior marginal osteophytes. [facility], [place], M[facility]pn Incoming Radiant Results From [facility] - 04/24/2020 12:20 PM EST CLINICAL HISTORY: [...] clinical follow up to assess for stability. [place] XR SHOULDER RIGHT (MIN 2 VIE WS)on 02-23-2020 Moderate degenerativ e changes at the acromioclavicular joint with undersurface spurring measuring 7 mm, which could contribute to outlet impingement. [place] EXAM: XR SHOULDER RIGHT (MIN 2 VIEWS). HISTORY: M19.011. 74-year-old male, right shoulder pain, arthritis right shoulder region. COMPARISON: None. TECHNIQUE: 3 views right shoulder FINDINGS: Moderate osteoarthritic change acromioclavicular joint with undersurface spurring. Minimal degenerative narrowing at the glenohumeral joint. [place], M[facility] Incoming Radiant Results From [facility] - 02/23/2020 4:11 PM EST EXAM: XR [...] mm, which could contribute to outlet impingement. [place] Vital Signs Date Time Vital Sign Value Performing Clinician Facility 01-17-2024 10:30-0400 Body height 175.3 cm Laya Rine FLEXIBLE BABYSITTER Work Phone: [facility] 01-17-2024 10:30-0400 Body mass index (BMI) [Ratio] 25.08 kg/m2 Laya Rine FLEXIBLE BABYSITTER Work Phone: [facility] 01-17-2024 10:30-0400 Body temperature 97.81 [degF] Laya Rine FLEXIBLE BABYSITTER Work Phone: [facility] 01-17-2024 10:30-0400 Body weight 77.02 kg Laya Rine FLEXIBLE BABYSITTER Work Phone: [facility] 01-17-2024 10:30-0400 Diastolic blood pressure 78 mm[Hg] Laya Rine FLEXIBLE BABYSITTER Work Phone: [facility] 01-17-2024 10:30-0400 Heart rate 70 /min Laya Rine FLEXIBLE BABYSITTER Work Phone: [facility] 01-17-2024 10:30-0400 Respiratory rate 18 /min Laya Rine FLEXIBLE BABYSITTER Work Phone: [facility] 01-17-2024 10:30-0400 SaO2% (BldA) [Mass fraction] 96 % Laya Rine FLEXIBLE BABYSITTER Work Phone: [facility] 01-17-2024 10:30-0400 Systolic blood pressure 138 mm[Hg] Laya Rine FLEXIBLE BABYSITTER Work Phone: [facility] 05-09-2020 15:35-0500 BP Diastolic 58 mm[Hg] [facility] , [place] 05-09-2020 15:35-0500 BP Systolic 113 mm[Hg] [facility] , [place] 05-09-2020 15:35-0500 Pulse (Heart Rate) 60 /min [facility], [place] 05-09-2020 15:35-0500 Pulse Oximetry 96 % [facility] , [place] 05-09-2020 15:35-0500 Respiratory Rate 18 /min [facility], [place] 05-09-2020 15:05-0500 Body Temperature 96.49 [degF] [place] [facility], [place] 05-09-2020 10:31-0500 BMI (Body Mass Index) 26.09 kg/m2 [place] [facility], [place] 05-09-2020 10:31-0500 Body weight 76.7 kg [place] [facility] , [place] 05-09-2020 10:31-0500 Height 171.5 cm [facility] [place] Encounters Encounter Date Encounter Type Care Provider Facility Start: 01-17-2024 End: 01-17-2024 Bamboo flowsheet Laya L Rine FLEXIBLE BABYSITTER Work Phone: [facility] Start: 01-17-2024 End: 01-17-2024 Bamboo flowsheet Laya L Rine FLEXIBLE BABYSITTER Work Phone: [facility] Start: 01-17-2024 End: 01-17-2024 Office outpatient visit 25 minutes Laya L Jayline FLEXIBLE BABYSITTER Work Phone: [facility] Comment on above: Type 2 diabetes carmen itus with complication (CMS/HCC) (Primary Dx); Stage 3a chronic kidney disease (HCC) ([facility]/HCC); Type 2 diabetes mellitus with hyperglycemia (CMS/HCC); Mixed hyperlipidemia (CMS/HCC) Start: 01-17-2024 End: 01-17-2024 ambulatory LAYA L RINE Not Available Start: 01-16-2024 End: 01-17-2024 Refill Laya L Rine FLEXIBLE BABYSITTER Work Phone: [facility] Comment on above: Primary hypertension (CMS/HCC) Start: 01-10-2024 End: 01-10-2024 Bamboo flowsheet Nicol Salgado PA Work Phone: [facility] Start: 01-10-2024 End: 01-10-2024 Bamboo flowsheet Nicol Salgado PA Work Phone: [facility] Start: 01-10-2024 End: 01-10-2024 Telephone encounter Laya L Jayline FLEXIBLE BABYSITTER Work Phone: [facility] Comment on above: refill atorvastatin Start: 01-10-2024 End: 01-10-2024 Patient encounter procedure Nicol Salgado PA Work Phone: [facility] Comment on above: Actinic keratosis (P rimary Dx) Start: 01-10-2024 End: 01-10-2024 ambulatory NICOL L NAOMI Not Available Start: 12-13-2023 End: 12-13-2023 Telephone encounter Laya Plata FLEXIBLE BABYSITTER Work Phone: [facility] Comment on above: refills Start: 12-09-2023 End: 12-09-2023 Telephone encounter Laya Jermain Mosquedae FLEXIBLE BABYSITTER Work Phone: [facility] Comment on above: Med Refill Start: 11-30-2023 End: 11-30-2023 Bamboo flowsheet Nicol Salgado PA Work Phone: [facility] Start: 11-30-2023 End: 11-30-2023 Bamboo flowsheet Nicolirene Salgado PA Work Phone: [facility] Start: 11-30-2023 End: 11-30-2023 Office outpatient visit 10 minutes Nicol Salgado PA Work Phone: [facility] Comment on above: Barker angioma (Prim sonya Dx); Actinic keratosis Start: 11-30-2023 End: 11-30-2023 ambulatory NICOL L NAOMI Not Available Start: 11-24-2023 End: 11-24-2023 Refill Laya L Jayline FLEXIBLE BABYSITTER Work Phone: [facility] Comment on above: Primary hypertension (CMS/HCC) Start: 09-17-2023 End: 09-17-2023 ambulatory LAYA L RINE Not Available Start: 09-06-2023 End: 09-06-2023 ambulatory NICOL L NAOMI Not Available Start: 06-15-2023 End: 06-18-2023 ambulatory [facility] Start: 05-21-2023 End: 05-21-2023 ambulatory LAYA L RINE Not Available Start: 04-12-2023 End: 04-12-2023 ambulatory NICOL SALGADO Not Available Start: 04-02-2023 End: 04-02-2023 ambulatory PRETTY Tierney POCOS Not Available Start: 03-05-2023 End: 03-05-2023 ambulatory PRETTY Tierney POCOS Not Available Start: 03-01-2023 End: 03-04-2023 ambulatory DANIEL POP [facility] Start: 02-01-2023 End: 02-02-2023 ambulatory Ponce Fuentes MD Facility:[facility] Start: 04-23-2022 End: 04-24-[address] DOCTOR ARNOLD Facility:[facility] Start: 04-20-2022 End: 04-20-2022 Patient encounter status Daniel Pop DO Work Phone: [facility] Start: 04-20-2022 End: 04-20-2022 Subsequent hospital visit by physician Daniel Bhandari Phone: [facility] Comment on above: Pre-op testing Start: 04-07-2022 End: 04-07-[address] DOCTOR ARNOLD Facility:[facility] Start: 03-19-2022 End: 03-20-[address] ABNER [place] Facility:[facility] Start: 07-22-2021 End: 07-23-[address] ABNER WASHINGTON Facility:[facility] Start: 07-16-2021 End: 07-17-[address] OTF LIAO Facility:[facility] Start: 08-15-2020 End: 08-17-2020 Subsequent hospital visit by physician Daniel Bhandari Phone: [facility] Start: 07-15-2020 End: 07-15-2020 Subsequent hospital visit [...] 07-01-2020 Subsequent hospital visit by physician Alisia [facility] Comment on above: Arrived Start: 06-26-2020 End: 06-26-2020 Subsequent hospital visit by physician Nathalie Burnham [facility] Comment on above: Arrived Start: 06-24-2020 End: 06-24-2020 Subsequent hospital visit by physician Alisia [facility] Comment on above: Arrived Start: 06-21-2020 End: 06-21-2020 Subsequent hospital visit by physician Alisia [facility] Comment on above: Arrived Start: 06-19-2020 End: 06-19-2020 Subsequent hospital visit by physician Quynh Worthington [facility] Comment on above: Arrived Start: 06-14-2020 End: 06-14-2020 Subsequent hospital visit by physician Nathalie [facility] Comment on above: Arrived Start: 06-12-2020 End: 06-12-2020 Subsequent hospital visit by physician Nathalie Burnham [facility] Comment on above: Arrived Start: 06-10-2020 End: 06-10-2020 Subsequent hospital visit by physician Nathalie Burnham [facility] Comment on above: Arrived Start: 06-07-2020 End: 06-07-2020 Subsequent hospital visit by physician Quynh [facility] Comment on above: Arrived Start: 06-05-2020 End: 06-05-2020 Subsequent hospital visit by physician Quynh [facility] Comment on above: Arrived Start: 05-29-2020 End: 05-29-2020 Subsequent hospital visit by physician Quynh [facility] Comment on above: Arrived [...] End: 05-04-2020 Subsequent hospital visit by physician [facility] Comment on above: Pre-op chest exam Start: 04-24-2020 End: 04-26-2020 Subsequent hospital visit by physician Yo Mri Scanner [place] [facility] Comment on above: Impingement syndrome of right shoulder Start: 04-17-2020 End: 04-17-2020 Subsequent hospital visit by physician Rosalino Singh [facility] Physical Therapy Comment on above: Arrived Start: 04-15-2020 End: 04-15-2020 Subsequent hospital visit by physician Danay Can [facility] Comment on above: Arrived Start: 04-11-2020 End: 04-11-2020 Subsequent hospital visit by physician Danay Can [facility] Comment on above: Arrived Start: 04-09-2020 End: 04-09-2020 Subsequent hospital visit by physician Rosalino Singh [facility] Physical Therapy Comment on above: Arrived Start: 04-03-2020 End: 04-03-2020 Subsequent hospital visit by physician Rosalino Singh [facility] Physical Therapy Comment on above: Arrived Start: 04-01-2020 End: 04-01-2020 Subsequent hospital visit by physician Rosalino Singh [facility] Physical Therapy Comment on above: Arrived Start: 03-27-2020 End: 03-27-2020 Subsequent hospital visit by physician Jessica Albarado Work Phone: [facility] Comment on above: Arrived Start: 03-26-2020 End: 03-26-2020 Subsequent hospital visit by physician Danay Can [facility] Comment on above: Arrived Start: 03-21-2020 End: 03-21-2020 Subsequent hospital visit by physician Rosalino Singh [facility] Physical Therapy Comment on above: Arrived Start: 03-19-2020 End: 03-19-2020 Subsequent hospital visit by physician Danay Can [facility] Comment on above: Arrived Start: 02-23-2020 End: 02-25-2020 Subsequent hospital visit by physician Anderson Additional Xray At [facility] Comment on above: Arthritis of right s [place] region Start: 12-20-2018 End: 12-22-2018 Subsequent hospital visit by physician Daniel Pop [facility] Procedures Date Procedure Procedure Detail Performing Clinician Start: 01-10-2024 CRYOTHERAPY SKIN LESION Nicol L Naomi TURPIN Work Phone: Start: 11-30-2023 CRYOTHERAPY SKIN LESION Nicol Aly Naomi TURPIN Work Phone: Start: 04-20-2022 Ecg routine ecg w/le ast 12 lds w/i&r Brian Mckeon MD Work Phone: Start: 05-09-2020 Gluc bld gluc mntr d ev cleared fda spec home use Pretty Ames Work Phone: Start: 05-09-2020 Gluc bld gluc mntr d ev cleared fda spec home use Pretty Ames Work Phone: Start: 05-09-2020 COVID-19 Pete Rexu regfeli Work Phone: Start: 05-02-2020 Radiologic exam ches [...] screening for protein Diabetes: Urine Protein Screening [facility] Start: 05-08-2024 End: 05-08-2024 Patient encounter procedure 05/08/2024 11:00 AM EST Of fice Visit [facility] [address] [place] [address] Laya Plata, FLEXIBLE BABYSITTER [address] [place] [address] [facility] Start: 04-14-2024 End: 04-14-2024 Patient encounter procedure [facility] Start: 04-13-2024 Hemoglobin A1c measurement Diabetes: Hemoglobin A1C [facility] Start: 03-13-2024 Influenza vaccination Influenza Vaccine (#1) [facility] Comment on above: Postponed from 12/05/2023 (Patient Refus ed) Start: 01-17-2024 End: 01-17-2024 Patient encounter procedure [facility] Comment on above: Type 2 diabetes mellitus with complicati on (CMS/HCC) (Primary Dx); Stage 3a chronic kidney disease (HCC) (CMS/HCC) Start: 01-10-2024 End: 01-10-2024 Patient encounter procedure [facility] Comment on above: Arrived Start: 12-16-2023 Hemoglobin A1c measurement Diabetes: Hemoglobin A1C [facility] Start: 12-11-2023 Glaucoma screening Diabetes: Retinopathy Screening [facility] Start: 12-05-2023 Influenza vaccination Influenza Vaccine (#1) [facility] Start: 11-30-2023 End: 11-30-2023 Patient encounter procedure [facility] Comment on above: Arrived Start: 08-12-2022 Urine screening for protein Diabetes: Urine Protein Screening [facility] Start: 05-04-2022 End: 05-04-2022 Admission to same day surgery center 05/04/2022 Surgery IP Unit Brian Mckeon MD [address] [place] [id number] [facility]OSCOPY [facility] Comment on above: COLONOSCOPY [...] by physician 05/04/2022 Hospital Encounter IP Unit Brian Mckeon MD [address] [place] [id number] [facility] Start: 05-02-2021 Creatinine measurement Creatinine monitoring [facility] Start: 05-02-2021 Potassium monitoring Potassium monitoring [facility] [place] Start: 08-13-2020 COVID-19 Vaccine (2 - Booster for Hermila series) COVID-19 Vaccine (2 - Booster for Hermila series) [facility] Start: 07-11-2020 End: 07-11-2020 Appointment [...] 06-14-2020 End: 06-14-2020 Appointment 06/14/2020 Appointment Physical Nathalie Fierro [facility] Start: 06-12-2020 End: 06-12-2020 Appointment 06/12/2020 Appointment Physical Nathalie Fierro [facility] Start: 06-10-2020 End: 06-10-2020 Appointment 06/10/2020 Appointment Physical Therapy Nathalie Burnham [facility] Start: 06-07-2020 End: 06-07-2020 Appointment 06/07/2020 Appointment Physical Therapy Quynh Worthington, PT [facility] Start: 06-05-2020 End: 06-05-2020 Appointment 06/05/2020 Appointment Physical Therapy Quynh Worthington PT [facility] Start: 06-03-2020 [facility] Start: 05-31-2020 Hospital En[facility]2020 [facility] Start: 05-09-2020 End: 05-09-2020 Hospital Encounter [facility] Comment on above: RIGHT SHOULDER [...] Appointment 04/09/2020 Appointment Physical Therapy Rosalino Singh PTA [facility] Start: 04-03-2020 End: 04-03-2020 Appointment 04/03/2020 Appointment Physical Therapy Rosalino Singh PTA [facility] Start: 04-01-2020 End: 04-01-2020 Appointment 04/01/2020 Appointment Physical Therapy Rosalino Singh PTA [facility] Start: 03-27-2020 End: 03-27-2020 Appointment 03/27/2020 Appointment Physical Therapy Jessica Albarado, PT [address] [place] [address] [phone] [facility] Start: 03-26-2020 End: 03-26-2020 Appointment 03/26/2020 Appointment Physical Therapy Danay Can, PT [facility] Start: 03-21-2020 End: 03-21-2020 Appointment 03/21/2020 Appointment Physical Therapy Rosalino Singh PTA [facility] Start: 12-01-2019 Colon cancer screen colonoscopy Colon cancer screen colonoscopy [place], [place] Start: 12-04-2018 Influenza vaccination Flu vaccine (#1) [place] Start: 09-22-2018 Annual Wellness Visit (AWV) Annual Wellness Visit (AWV) [facility] Start: 03-02-2018 Pneumococcal 65+ years Vaccine (2 of 2 - PCV13) Pneumococcal 65+ years Vaccine (2 of 2 - PCV13) [place] Start: 06-22-1993 Shingles Vaccine (1 of 2) Shingles Vaccine (1 of 2) [facility] Start: 06-22-1962 DTaP/Tdap/Td vaccine (1 - Tdap) DTaP/Tdap/Td vaccine (1 - Tdap) [facility] Start: 06-22-1961 Hepatitis C screening Hepatitis C screen [facility] Start: 1959 COVID-19 Vaccine (1 of 2) COVID-19 Vaccine (1 of 2) [place], [place] Start: 1959 COVID-19 Vaccine (1) COVID-19 Vaccine (1) [facility] Work Phone: Start: 1955 Depression Screen Depression Screen [facility] Start: 06-22-1953 [object Object] Diabetic foot exam [place] Start: 06-22-1953 A1C test (Diabetic or Prediabetic) A1C test (Diabetic or Prediabetic) [place] Start: 06-22-1953 Diabetic retinal exam Diabetic retinal exam [place] Start: 06-22-1953 Lipid panel [facility] Start: 06-22-1953 Lipid screen Lipid screen [place] Start: 1943 AAA screen AAA screen [place], [place] Start: 1943 Creatinine measurement Creatinine monitoring [place] Start: 1943 Creatinine monitoring Creatinine monitoring [place] Start: 1943 Hepatitis C screening Hepatitis C screen [place], [place] Start: 1943 Potassium monitoring Potassium monitoring [place] Oxygen therapy [[facility] [place] Set] Initiate Oxygen Therapy Protocol Respiratory Care Routine Daily until discontinued starting 05/09/2020 [place] Comment on above: Daily until discontinued starting 2020 End: 05-09-2020 POCT glucose POCT glucose Point of Care Testing Routine One Time for 1 Occurrences starting 05/09/2020 until 05/09/2020 [place] Comment on above: One Time for 1 Occurrences starting 07/2020 until 05/09/2020 Immunizations Immunization Date Immunization Notes Care Provider Dara carranza 03-03-2022 Influenza, High-dose Seasonal, Quadrivalent, Preservative Free Laya Rine FLEXIBLE BABYSITTER Work Phone: [facility] 03-03-2022 influenza virus vacc ine, unspecified formulation Laya Rine FLEXIBLE BABYSITTER Work Phone: [facility] 01-01-2021 Influenza, High-dose Seasonal, Quadrivalent, Preservative Free Laya Rine FLEXIBLE BABYSITTER Work Phone: [facility] 02-22-2020 influenza, injectabl e, quadrivalent, preservative free Laya Rine FLEXIBLE BABYSITTER Work Phone: [facility] 04-25-2019 Seasonal trivalent influenza vaccine, adjuvanted, preservative free Laya Rine FLEXIBLE BABYSITTER Work Phone: [facility] 03-02-2018 influenza, high dose seasonal, preservative-free Laya Rine FLEXIBLE BABYSITTER Work Phone: [facility] 03-02-2017 pneumococcal polysaccharide vaccine, 23 valent Laya Rine FLEXIBLE BABYSITTER Work Phone: [facility] 01-07-2017 influenza, high dose seasonal, preservative-free Laya Rine FLEXIBLE BABYSITTER Work Phone: [facility] 01-03-2016 influenza, injectabl e, quadrivalent, contains preservative Laya Rine FLEXIBLE BABYSITTER Work Phone: [facility] 03-11-2015 influenza, injectabl e, quadrivalent, preservative free Laya Rine FLEXIBLE BABYSITTER Work Phone: [facility] 03-11-2015 pneumococcal conjuga te vaccine, 13 valent Laya Rine FLEXIBLE BABYSITTER Work Phone: [facility] Payers Date Payer Category Payer Medicare MEDICARE MEDICAR E PART A AND B xxxxxxxxxx 2016-Present [phone] [address] [address] [place] [address] xxxxxxxxxx [id number] 2016 Private Health Insurance HUMANA HUMANA MEDICARE SUPP xxxxxxxxx 2016-Present [address] [address] [place] [address] xxxxxxxxx [id number] 2015 Private Health Insurance 2008 Medicare 1959 Medicare [id number] 1959 Private Health Insurance [id number] 1943 Unknown [id number] 2.16.840.1.045704.3.579.2 .593 1943 Unknown [id number] 2.16.840.1.970400.3.579.2 .593 1943 Unknown [id number] 2.16.840.1.649778.3.579.2 .593 1943 Unknown [id number] 2.16.840.1.708442.3.579.2 .593 1943 Unknown [id number] 2.16.840.1.651286.3.579.2 .593 1943 Unknown [id number] 2.16.840.1.397119.3.579.2 .196 1943 Unknown [id number] 2.16.840.1.688257.3.579.2 .174 1943 Unknown [id number] 2.16.840.1.151318.3.579.2 .174 1943 Unknown [id number] 2.16.840.1.639687.3.579.2 .174 1943 Unknown [id number] 2.16.840.1.991120.3.579.2 .174 1943 Unknown [id number] 2.16.840.1.562582.3.579.2 .1259 1943 Unknown [id number] 2.16.840.1.297119.3.579.2 .1259 1943 Unknown [id number] 2.16.840.1.447378.3.579.2 .1259 1943 Unknown [id number] 2.16.840.1.591709.3.579.2 .1259 1943 Unknown [id number] 2.16.840.1.967554.3.579.2 .1259 1943 Unknown [id number] 2.16.840.1.146240.3.579.2 .1259 1943 Unknown [id number] 2.16.840.1.371455.3.579.2 .1259 1943 Unknown [id number] 2.16.840.1.722831.3.579.2 .9 1943 Unknown [id number] 2.16.840.1.642600.3.579.2 .9 1943 Unknown [id number] 2.16.840.1.584893.3.579.2 .1259 1943 Unknown [id number] 2.16.840.1.652995.3.579.2 .1259 Social History Date Type Detail Facility Start: 12-15-2016 End: 09-17-2023 Tobacco smoking status NHIS Former [place] Start: 02-06-1991 End: 11-30-2006 History of tobacco use Current [place] Start: 02-06-1991 End: 11-30-2006 History of tobacco use Cigarette Sm[place] End: 11-30-2006 History of tobacco use Pipe Sm[place] Start: 12-15-2016 End: 04-20-2022 Tobacco use and exposure Former user [place], [place] History of tobacco use Snuff User [place] History of tobacco use Chews Tobacco [place] Start: 12-15-2016 End: 11-30-2023 Alcohol intake Current drinker of alcohol (finding) [place] Start: 1945 Sex Assigned At Not on file [place] Exposure to SARS-CoV -2 (event) Not sure [place] Start: 12-15-2016 End: 01-18-2023 Alcohol intake Yes [facility] Start: 05-09-2020 End: 01-18-2023 Alcohol intake [facility] Start: 04-20-2022 History 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 Work Phone: Start: 04-20-2022 History SDOH Food Worry [address] [employer] [facility] Phone: Start: 09-17-2023 Tobacco use and exposure Smoke less tobacco non-user [facility] Within the last year , have you been afraid of your partner or ex-partner? No [facility] Do you belong to any clubs or organizations such as tenriism groups, unions, fraternal or athletic groups, or school groups? Yes [...] Equipment Origin al Text Equipment Identifier Dates [place] [employer] [id number] Mm Tiana Wiggins [id number] Start: 05-09-2020 [id number] Start: 04-20-2023 Clinical Notes 07-16-2021 to 01-17-2024 Laya Plata NP - 01/17/2024 10:30 AM EDTPatient InstructionsTelephone Encounter - Laya Plata NP - 01/10/2024 11:24 AM EDTTelephone Encounter - Laya Plata NP - 01/10/2024 11:24 AM EDT Note Date [...] Oral, Daily cholecalciferol (Vitamin D-3) 50 MCG (1999 UT) tablet Every 24 hours dapagliflozin (FARXIGA) 10 [...] 25 mg, Oral, Every morning [facility] Pen [place] 32G X 4 MM misc Inject under [...] Laterality Date ANTERIOR CRUCIATE LIGAMENT REPAIR COLONOSCOPY 2011 KNEE SURGERY Arthroscopy knee HI REPAIR OF NASAL SEPTUM nasal septoplasty to correct a deviated nasal septum ROTATOR CUFF REPAIR SHOULDER ARTHROSCOPY 05/09/2020 Rt shoulder scope, LHB debridement, RCR/SAD- DAP THROAT SURGERY x 2- per Dr Rowland TONSILLECTOMY VASECTOMY FAMILY HISTORY: Family History Problem Relation Name Age of Onset Diabetes Mother Terra Straks Hypertension Mother Terra Starks Other (Other) Father [...] him farxiga 10mg #28 samples, sent to [facility] for brenzavvy (sglt 2) rec some [...] 3.5 mo . documented in this encounter [facility] 01-17-2024 Instructions Laya Plata NP - 01/17/2024 10:30 AM EDT Farxiga 10mg per day with samples for now Brenzavvy is the new medication, one daily from the [facility] pharmacy Call if any issues getting this Check aic again in 3 mo documented in this encounter [facility] 01-10-2024 Telephone encount er Note Sent as requested [facility] 01-10-2024 Miscellaneous Notes Formattin g of this note might be different from the original. Sent as requested Refill Atorvastatin 40mg --med loaded [facility] documented in this encounter [facility] 01-10-2024 Telephone encount er Note Refill Atorvastatin 40mg --med loaded [facility] 01-10-2024 History of Presen t illness Narrative [...] limited to risks of scarring, darker or shrimp trawler captain pigmentary changes, recurrence, incomplete removal and infection. [...] Visit: as scheduled documented in this encounter [facility] 12-13-2023 Telephone encount er Note Sent as requested [facility] 12-13-2023 Miscellaneous Notes Formattin g of this note might be different from the original. Sent as requested He would like a refill on Omeprazole and Lisinopril to [facility] documented in this encounter [facility] 12-13-2023 Telephone encount er Note He would like a refill on Omeprazole and Lisinopril to [facility] 12-09-2023 Telephone encount er Note Sent as requested [facility] 12-09-2023 Miscellaneous Notes Formattin g of this note might be different from the original. Sent as requested PT requesting refill on fluticasone, please send to [facility] documented in this encounter [facility] 12-09-2023 Telephone encount er Note PT requesting refill on fluticasone, please send to [facility] 11-30-2023 History of Presen t illness Narrative Images from the original note were not included. Follow up Diagnosis: Actinic Keratosis Location: left lower vermilion lip Last visit: 10 weeks ago Symptoms: none Status: pretty well gone Procedure performed: Cryotherapy Date of procedure: 09/06/2023 Number of treatments to date: 1 Current treatment: If no improvement will consider biopsy Lesions: Location: left lower lip (over further then previous spot) Duration: weeks Quality: denies pain, denies itch Modifying factors: aggravated by picking Associated symptoms: scaly Treatments: lip balm --ineffective All pertinent medical history, medications, and allergies were reviewed. General Exam: alert , oriented to person, place, and time , normal affect, well appearing Unaccompanied A focused exam completed based on patient reported problems, see below: 1. Barker angioma Left Lower Cutaneous Lip Scattered barker-red papule(s). The patient was informed that angiomas are benign growths on the the skin. No treatment is necessary. 2. Actinic keratosis Left Lower Vermilion Lip Erythematous scaly macule, 50% improved, see photo. Patient was counseled regarding these sun-induced growths that can develop into squamous cell carcinoma if left untreated. Discussed treatment with cryotherapy. It was emphasized that any treated lesions that fail to resolve should be re-evaluated. Cryotherapy performed today; see procedure note Diagnosis: Actinic keratosis Indication: Precancerous Location: see skin exam Consent: Verbal consent was obtained and risks were discussed, including, but not limited to risks of scarring, darker or shrimp trawler captain pigmentary changes, recurrence, incomplete removal and infection. Method: Liquid nitrogen was used to treat the lesion(s) with two 5-10 second freeze-thaw cycles. Number of lesions treated: 1 Post-procedure instructions: Instructions were given orally and in writing. The office will be contacted if the lesion fails to resolve despite treatment, or if a side effect develops such as abnormal crusting, scabbing, redness or tenderness Will biopsy at next appt if not resolved after cryotherapy today as this will be the second treatment. Cryotherapy, skin lesion - Left Lower Vermilion Lip Next Visit: 6 weeks (AK) documented in this encounter [facility] 04-23-2022 Note CONSULTATION CONSULTATION DATE: 04/23/2022 HISTORY [...] will contact the office as needed. [facility] 03-19-2022 Note CONSULTATION CONSULTATION DATE: 03/19/2022 [...] followed up in the clinic thereafter. [facility] 07-22-2021 Note OPERATIVE NOTE OPERATION DATE:07/22/2021 [...] Will be followed up in the office. [facility] Signed and Approved by: DR ABNER WASHINGTON . 07/29/2021 12:16:00 [facility] 07-16-2021 Note PROCEDURE: XR SHOULD ER [...] by: OTF LIAO Date: 2021-07-16 15:31 [facility] 07-16-2021 Note CONSULTATION PAIN MANAGEMENT CONSULTATION [...] plan of care and all questions answered. [facility] Signed and Approved by: JESSE WOOD . 07/17/2021 16:20:00 [facility] Evaluation note Diagnosis Pre-op testing Preoperative examination, unspecified Screening for colon cancer Special screening for malignant neoplasms, colon documented in this encounter [facility] [employer] Work Phone: evaluation note* Diagnosis Actinic keratosis- Primary documented in this encounter [facility]* Diagnosis Mixed hyperlipidemia (CMS/HCC) Mixed hyperlipidemia documented in this encounter [facility]* Diagnosis Primary hypertension (CMS/HCC) Unspecified essential hypertension Type 2 diabetes mellitus with complication (CMS/HCC)- Primary Stage 3a chronic kidney disease (HCC) (CMS/HCC) documented in this encounter [facility]* Diagnosis Type 2 diabetes mellitus with complication (CMS/HCC)- Primary Stage 3a chronic kidney disease (HCC) (CMS/HCC) Type 2 diabetes mellitus with hyperglycemia (CMS/HCC) Mixed hyperlipidemia (CMS/HCC) Mixed hyperlipidemia [facility] Diagnosis Primary hypertension (CMS/HCC) Unspecified essential hypertension [facility] Diagnosis Barker angioma- Primary Actinic keratosis [facility] Diagnosis Environmental and seasonal allergies documented [facility] this [facility] Diagnosis Primary hypertension (CMS/HCC) Unspecified essential hypertension Chronic GERD documented in this encounter [facility] Assessments [...] Documents on File Type Date Recorded Patient Boiler Service Technician Expl anation ACP-Advance Directive ACP-Power of Sys Dir Latest Code Status on File Code Status Date Activated Date Inactivated Comments Full Code 11/30/2016 6:33 AM 11/30/2016 11:59 AM Documents on File Type Date Recorded Patient Boiler Service Technician Expl anation ACP-Advance Directive ACP-Power of Sys Dir Latest Code Status on File Code Status [...] Documents on File Type Date Recorded Patient Boiler Service Technician Expl anation Advance Directives and Living Will Power of Sys Dir Healthcare Agents on File Name Relationship Healthcare Agent [facility] Communication Marianna Starks Spouse Primary Decision Maker Documents on File Type Date Recorded Patient Boiler Service Technician Expl anation Advance Directives and Livin g Will 03/07/2019 [id number] History of Present Illness * Danay Can, PT - 03/19/2020 8:30 AM EST [facility] Evaluation Date: 03/19/2020 Patient: Tony Starks : 1945 Referring Practitioner: Dr. Pretty Ames Referral Date : 03/14/20 Diagnosis: R shoulder IS, AC, OA Treatment Diagnosis: R shoulder pain Onset Date: 03/14/20 PT Insurance Information: [facility] Total # of Visits Approved: 18 Per [...] 45deg of IR to improve dressing [place]. intermediate project manager goals Time Frame for senior living goals : 15 visits(POC Exp 04/30/19) intermediate project manager goal 1: Pt to score >51/80 on UEFS to improve ADL [facility] goal 2: Pt to have ER of 55deg to improve upper body dressing. intermediate project manager goal 3: Pt to have 4/5 Horiz ABD strength to improve pt posture. intermediate project manager goal 4: Pt to have 4/5 ER strength without pain to improve ADL ken[place]. Patient's Goal: Patient goals : Relieve his shoulder pain so he can complete ADLs and hobbies Timed Code Treatment Minutes: 0 Minutes Total Treatment Time: 45 Time In: 834 Time Out: 919 Danay Can, PT Date: 03/19/2020 documented in this encounter* Rosalino Singh, CLEARING DISTRIBUTION CLERK - 03/21/2020 10:30 AM EST [facility] Daily Note Date: 03/21/2020 Patient Name: Tony Starks : 1945 (74 y.o.) Referring Practitioner: Dr. Pretty Ames Referral Date : 03/14/20 Diagnosis: R shoulder IS, AC, OA Treatment Diagnosis: R shoulder pain Onset Date: 03/14/20 PT Insurance Information: [facility] Total # of Visits Approved: 18 Per [...] 45deg of IR to improve dressing kenrick. Access Manager Goals - Time Frame for senior living goals : 15 visits(POC Exp 04/30/19) intermediate project manager goal 1: Pt to score >51/80 on UEFS to improve ADL kenrick intermediate project manager goal 2: Pt to have ER of 55deg to improve upper body dressing. senior living goal 3: Pt to have 4/5 Horiz ABD strength to improve pt posture. intermediate project manager goal 4: Pt to have 4/5 ER strength without pain to improve ADL kenrick. Post Treatment Pain: 05/15 Time In: 1030 Time Out : 1110 Timed Code Treatment Minutes: 40 Minutes Total Treatment Time: 40 Minutes Rosalino Singh PTA Date: 03/21/2020 documented in this encounter* Daany Can, PT - 03/26/2020 10:15 AM EST [facility] Out[facility] Physical Therapy Daily Note Date: 03/26/2020 Patient Name: Tony Starks : 1945 (74 y.o.) Referring Practitioner: Dr. Pretty Ames Referral Date : 03/14/20 Diagnosis: R shoulder IS, AC, OA Treatment Diagnosis: R shoulder pain Onset Date: 03/14/20 PT Insurance Information: [facility] Total # of Visits Approved: 18 Per [...] 45deg of IR to improve dressing kenrick. Access Manager Goals - Time Frame for intermediate project manager goals : 15 visits(POC Exp 04/30/19) senior living goal 1: Pt to score >51/80 on UEFS to improve ADL kenrick intermediate project manager goal 2: Pt to have ER of 55deg to improve upper body dressing. senior living goal 3: Pt to have 4/5 Horiz ABD strength to improve pt posture. intermediate project manager goal 4: Pt to have 4/5 ER [...] pain Onset Date: 03/14/20 PT Insurance Information: [facility] Total # of Visits Approved: 18 Per [...] 45deg of IR to improve dressing kenrick. Access Manager Goals - Time Frame for senior living goals : 15 visits(POC Exp 04/30/19) senior living goal 1: Pt to score >51/80 on UEFS to improve ADL kenrick intermediate project manager goal 2: Pt to have ER of 55deg to improve upper body dressing. intermediate project manager goal 3: Pt to have 4/5 Horiz ABD strength to improve pt posture. senior living goal 4: Pt to have 4/5 ER strength without pain to improve ADL kenrick. Post Treatment Pain: 05/15 Time In: 1440 Time Out : 1525 Timed Code Treatment Minutes: 40 Minutes Total Treatment Time: 40 Minutes JESSICA ALBARADO PT Date: 03/27/2020 documented in this encounter* Rosalino Singh, KULWANT - 04/09/2020 10:30 AM EST [facility] Out[facility] Physical Therapy Daily Note Date: 04/09/2020 Patient Name: Tony Starks : 1945 (74 y.o.) Referring Practitioner: Dr. Pretty Ames Referral Date : 03/14/20 Diagnosis: R shoulder IS, AC, OA Treatment Diagnosis: R shoulder pain Onset Date: 03/14/20 PT Insurance Information: [facility] Total # of Visits Approved: 18 Per Physician Order Total # of Visits to Date: 7 No Show: 0 Canceled Appointment: 0 Plan of Care/Certification Expiration Date: 04/30/19 Pre-Treatment Pain: /10 Assessment Assessment: Patient reports R shoulder pain [...] IR to improve dressing kenrick. - MET Detention Goals - Time Frame for senior living goals : 15 visits(POC Exp 04/30/19) senior living goal 1: Pt to score >51/80 on UEFS to improve ADL kenrick intermediate project manager goal 2: Pt to have ER of 55deg to improve upper body dressing. - MET intermediate project manager goal 3: Pt to have 4/5 Horiz ABD strength to improve pt posture. senior living goal 4: Pt to have 4/5 ER [...] pain Onset Date: 03/14/20 PT Insurance Information: [facility] Total # of Visits Approved: 18 Per [...] IR to improve dressing kenrick. - MET Detention Goals - Time Frame for intermediate project manager goals : 15 visits(POC Exp 04/30/19) senior living goal 1: Pt to score >51/80 on UEFS to improve ADL kenrick senior living goal 2: Pt to have ER of 55deg to improve upper body dressing. - MET intermediate project manager goal 3: Pt to have 4/5 Horiz ABD strength to improve pt posture. senior living goal 4: Pt to have 4/5 ER [...] pain Onset Date: 03/14/20 PT Insurance Information: [facility] Total # of Visits Approved: 18 Per [...] IR to improve dressing kenrick. - MET senior living goals Time Frame for senior living goals : 15 visits(POC Exp 04/30/19) senior living goal 1: Pt to score >51/80 on UEFS to improve ADL kenrick senior living goal 2: Pt to have ER of 55deg to improve upper body dressing. - MET senior living goal 3: Pt to have 4/5 Horiz ABD strength to improve pt posture. intermediate project manager goal 4: Pt to have 4/5 ER [...] pain Onset Date: 03/14/20 PT Insurance Information: [facility] Total # of Visits Approved: 18 Per [...] IR to improve dressing kenrick. - MET Access Manager Goals - Time Frame for intermediate project manager goals : 15 visits(POC Exp 04/30/19) senior living goal 1: Pt to score >51/80 on UEFS to improve ADL kenrick senior living goal 2: Pt to have ER of 55deg to improve upper body dressing. - MET senior living goal 3: Pt to have 4/5 Horiz ABD strength to improve pt posture. intermediate project manager goal 4: Pt to have 4/5 ER strength without pain to improve ADL kenrick. Post Treatment Pain: 2-3/ Time In: 1028 Time Out : 1117 [...] require patient to operate motor Vehicle. Yes IE * Amanda Gillis RN - 05/09/2020 4:33 [...] require patient to operate motor Vehicle. Yes Janel Padilla RN - 05/09/2020 2:33 PM EST fsbs 83 * Janel Pierre RN - 05/09/2020 11:15 AM EST Med rec in progress. Pt poor historian. documented in this encounter* Ander Quynh Jermain, PT - 05/29/2020 11:00 AM EST [facility] Out[facility] Physical Therapy Evaluation Date: 05/29/2020 Patient: Tony Starks : 1945 Referring Practitioner: Dr. Pretty Ames Referral Date : 05/23/20 Diagnosis: R shoulder scope, LHB debridment, SAD, RCR Treatment Diagnosis: R shoulder pain s/p RTC sx Onset Date: 05/09/20 PT Insurance Information: [facility] Total # of Visits Approved: 18 Per [...] increase PROM R shld flexion 145 degrees intermediate project manager goals Time Frame for senior living goals : 18 visits intermediate project manager goal 1: Pt to have improved functional activitities with UEFS score >50/80 senior living goal 2: Pt to demonstrate 135deg AROM shoulder flexion to improve ability to reach into cupboards senior living goal 3: Pt to demonstrate 4/5 shoulder [...] sx Onset Date: 05/09/20 PT Insurance Information: [facility] Total # of Visits Approved: 18 Per [...] increase PROM R shld flexion 145 degrees Detention Goals - Time Frame for intermediate project manager goals : 18 visits senior living goal 1: Pt to have improved functional activitities with UEFS score >50/80 intermediate project manager goal 2: Pt to demonstrate 135deg AROM shoulder flexion to improve ability to reach into cupboards intermediate project manager goal 3: Pt to demonstrate 4/5 shoulder horizontal abd strength to improve ADLs and posture. Post Treatment Pain: 05/15 Time In: 10:30 Time Out : 11:00 Timed Code Treatment Minutes: 30 Minutes Total Treatment Time: 30 Minutes Quynh Worthington PT Date: 06/05/2020 documented in this encounter* Quynh Worthington PT - 06/07/2020 11:15 AM EST [facility] Therapy Daily Note Date: 06/07/2020 Patient Name: Tony Starks : 1945 (74 y.o.) Referring Practitioner: Dr. Pretty Ames Referral Date : 05/23/20 Diagnosis: R shoulder scope, LHB debridment, SAD, RCR Treatment Diagnosis: R shoulder pain s/p RTC sx Onset Date: 05/09/20 PT Insurance Information: [facility] Total # of Visits Approved: 18 Per Physician Order Total # of Visits to Date: 5 Pre-Treatment Pain: 2 Assessment Assessment: Pain 10 right shld. Patient reports he got a [...] increase PROM R shld flexion 145 degrees-Met Access Manager Goals - Time Frame for intermediate project manager goals : 18 visits senior living goal 1: Pt to have improved functional activitities with UEFS score >50/80 intermediate project manager goal 2: Pt to demonstrate 135deg AROM shoulder flexion to improve ability to reach into cupboards intermediate project manager goal 3: Pt to demonstrate 4/5 shoulder [...] sx Onset Date: 05/09/20 PT Insurance Information: [facility] Total # of Visits Approved: 18 Per [...] increase PROM R shld flexion 145 degrees-Met Access Manager Goals - Time Frame for intermediate project manager goals : 18 visits senior living goal 1: Pt to have improved functional activitities with UEFS score >50/80 intermediate project manager goal 2: Pt to demonstrate 135deg AROM shoulder flexion to improve ability to reach into cupboards senior living goal 3: Pt to demonstrate 4/5 shoulder horizontal abd strength to improve ADLs and posture. Post Treatment Pain: 05/15 Time In: 1030 Time Out : 1105 Timed Code Treatment Minutes: 35 Minutes Total Treatment Time: 35 Minutes Nathalie Burnham CLEARING DISTRIBUTION CLERK Date: 06/10/2020 documented in this encounter* Nathalie [...] sx Onset Date: 05/09/20 PT Insurance Information: [facility] Total # of Visits Approved: 18 Per [...] increase PROM R shld flexion 145 degrees-Met Detention Goals - Time Frame for senior living goals : 18 visits senior living goal 1: Pt to have improved functional activitities with UEFS score >50/80 senior living goal 2: Pt to demonstrate 135deg AROM shoulder flexion to improve ability to reach into cupboards senior living goal 3: Pt to demonstrate 4/5 shoulder horizontal abd strength to improve ADLs and posture. Post Treatment Pain: 0/10 Time In: 1115 Time Out : 1155 Timed Code Treatment Minutes: 40 Minutes Total Treatment Time: 40 Minutes Nathalie Burnham CLEARING DISTRIBUTION CLERK Date: 06/14/2020 documented in this encounter* Quynh [...] sx Onset Date: 05/09/20 PT Insurance Information: [facility] Total # of Visits Approved: 18 Per [...] increase PROM R shld flexion 145 degrees-Met Detention Goals - Time Frame for intermediate project manager goals : 18 visits senior living goal 1: Pt to have improved functional activitities with UEFS score >50/80 senior living goal 2: Pt to demonstrate 135deg AROM shoulder flexion to improve ability to reach into cupboards-Met senior living goal 3: Pt to demonstrate 4/5 shoulder [...] sx Onset Date: 05/09/20 PT Insurance Information: [facility] Total # of Visits Approved: 18 Per [...] increase PROM R shld flexion 145 degrees-Met Detention Goals - Time Frame for intermediate project manager goals : 18 visits intermediate project manager goal 1: Pt to have improved functional activitities with UEFS score >50/80 intermediate project manager goal 2: Pt to demonstrate 135deg AROM shoulder flexion to improve ability to reach into cupboards-Met intermediate project manager goal 3: Pt to demonstrate 4/5 shoulder horizontal abd strength to improve ADLs and posture. Post Treatment Pain: 10 Time In: 1115 Time Out : 1154 Timed Code Treatment Minutes: 39 Minutes Total Treatment Time: 39 Minutes Alisia Sapp PTA Date: 06/21/2020 documented in this encounter* Alisia Sapp S - 06/24/2020 1:45 PM EDT Images from the original note were not included. [facility] Physical Therapy Daily Note Date: 06/24/2020 Patient Name: Tony Starks : 1945 (75 y.o.) Referring Practitioner: Dr. Pretty Ames Referral Date : 05/23/20 Diagnosis: R shoulder scope, LHB debridment, SAD, RCR Treatment Diagnosis: R shoulder pain s/p RTC sx Onset Date: 05/09/20 PT Insurance Information: [facility] Total # of Visits Approved: 18 Per [...] increase PROM R shld flexion 145 degrees-Met Access Manager Goals - Time Frame for senior living goals : 18 visits senior living goal 1: Pt to have improved functional activitities with UEFS score >50/80 intermediate project manager goal 2: Pt to demonstrate 135deg AROM shoulder flexion to improve ability to reach into cupboards-Met senior living goal 3: Pt to demonstrate 4/5 shoulder horizontal abd strength to improve ADLs and posture. Post Treatment Pain: 1-2/10 Time In: 1341 Time Out : 1422 Timed Code Treatment Minutes: 43 Minutes Total Treatment Time: 43 Minutes Alisia SappCLEARING DISTRIBUTION CLERK Date: 06/24/2020 documented in this encounter* Quynh [...] sx Onset Date: 05/09/20 PT Insurance Information: [facility] Total # of Visits Approved: 18 Per [...] increase PROM R shld flexion 145 degrees-Met senior living goals Time Frame for intermediate project manager goals : 18 visits intermediate project manager goal 1: Pt to have improved functional activitities with UEFS score >50/80 intermediate project manager goal 2: Pt to demonstrate 135deg AROM shoulder flexion to improve ability to reach into cupboards-Met senior living goal 3: Pt to demonstrate 4/5 shoulder horizontal abd strength to improve ADLs and posture. Nathalie Burnham CLEARING DISTRIBUTION CLERK Date: 06/26/2020 * Nathalie Burnham Aureliano - 06/26/2020 11:15 AM EDT Images from the original note were not included. [facility] Therapy Daily Note Date: 06/26/2020 Patient Name: Tony Starks : 1945 (75 y.o.) Referring Practitioner: Dr. Pretty Ames Referral Date : 05/23/20 Diagnosis: R shoulder scope, LHB debridment, SAD, RCR Treatment Diagnosis: R shoulder pain s/p RTC sx Onset Date: 05/09/20 PT Insurance Information: [facility] Total # of Visits Approved: 18 Per Physician Order Total # of Visits to Date: 13 No Show: 0 Canceled Appointment: 0 Pre-Treatment Pain: 2/10 Assessment Assessment: Pt reports soreness /10. He reports he grilled 30 steaks yesterday [...] increase PROM R shld flexion 145 degrees-Met Access Manager Goals - Time Frame for senior living goals : 18 visits intermediate project manager goal 1: Pt to have improved functional activitities with UEFS score >50/80 intermediate project manager goal 2: Pt to demonstrate 135deg AROM shoulder flexion to improve ability to reach into cupboards-Met senior living goal 3: Pt to demonstrate 4/5 shoulder horizontal abd strength to improve ADLs and posture. Post Treatment Pain: 2/10 Time In: 1112 Time Out : 1150 Timed Code Treatment Minutes: 38 Minutes Total Treatment Time: 38 Minutes Nathalie Aureliano Burnham CLEARING DISTRIBUTION CLERK Date: 06/26/2020 documented in this encounter* Alisia [...] sx Onset Date: 05/09/20 PT Insurance Information: [facility] Total # of Visits Approved: 18 Per [...] increase PROM R shld flexion 145 degrees-Met Access Manager Goals - Time Frame for senior living goals : 18 visits intermediate project manager goal 1: Pt to have improved functional activitities with UEFS score >50/80 intermediate project manager goal 2: Pt to demonstrate 135deg AROM shoulder flexion to improve ability to reach into cupboards-Met intermediate project manager goal 3: Pt to demonstrate 4/5 shoulder horizontal abd strength to improve ADLs and posture. Post Treatment Pain: 0/10 Time In: 1114 Time Out : 1153 Timed Code Treatment Minutes: 39 Minutes Total Treatment Time: 39 Minutes Alisia Sapp ,CLEARING DISTRIBUTION CLERK Date: 07/01/2020 documented in this encounter* Quynh [...] sx Onset Date: 05/09/20 PT Insurance Information: [facility] Total # of Visits Approved: 18 Per [...] increase PROM R shld flexion 145 degrees-Met Detention Goals - Time Frame for senior living goals : 18 visits senior living goal 1: Pt to have improved functional activitities with UEFS score >50/80 senior living goal 2: Pt to demonstrate 135deg AROM shoulder flexion to improve ability to reach into cupboards-Met intermediate project manager goal 3: Pt to demonstrate 4/5 shoulder horizontal abd strength to improve ADLs and posture.-Met Post Treatment Pain: 2/10 Time In: 11:15 Time Out : 11:55 [...] sx Onset Date: 05/09/20 PT Insurance Information: [facility] Total # of Visits Approved: 18 Per [...] increase PROM R shld flexion 145 degrees-Met Access Manager Goals - Time Frame for senior living goals : 18 visits senior living goal 1: Pt to have improved functional activitities with UEFS score >50/80-MET senior living goal 2: Pt to demonstrate 135deg AROM shoulder flexion to improve ability to reach into cupboards-Met senior living goal 3: Pt to demonstrate 4/5 shoulder horizontal abd strength to improve ADLs and posture.-Met Post Treatment Pain: 0/10 Time In: 1115 Time Out : 1154 Timed Code Treatment Minutes: 39 Minutes Total Treatment Time: 39 Minutes Alisia Sapp,CLEARING DISTRIBUTION CLERK Date: 07/15/2020 documented in this encounter Reason for Referral Status Reason Specialty Diagnoses / Procedures Referre d By Contact Referred To Contact Closed Radiology Diagnoses Impingement syndrome of right shoulder Procedures MRI SHOULDER RIGHT WO CONTRAST Pretty Ames, DO [address] [place] [address] [facility] [address] [place] [address] Specialty Diagnoses / Procedures Referred By Contac t Referred To Contact Cardiology Diagnoses Pre-op testing Procedures EKG [address], [place] [address] Referral ID Status Reason Start Date Expiration Date Visits Re quested Visits Authorized [id number] Open 04/20/2022 04/20/2023 1 1 Discharge Instructions [...] meditation. You may begin using Tylenol or [id number] Ibuprofen or Motrin for pain should you [...] Information Onset Date: 05/09/20 PT Insurance Information: [facility] Total # of Visits Approved: 18 Total [...] RIGHT WO CONTRAST Pretty Ames, DO [address] [place] [address] [facility] [address] [place] [address] Status Reason Specialty Diagnoses / Procedures Referre d By Contact Referred To Contact Diagnoses Unspecified rotator cuff tear or rupture of right shoulder, not specified as traumatic RIGHT SHOULDER ROTATOR CUFF TEAR....BICEP TENDONITIS Procedures HI SHLDR ARTHROSCOP,SURG,W/ROTAT CUFF REPR RIGHT SHOULDER ARTHROSCOPY PROBABLE ROTATOR CUFF REPAIR... LONG HEAD BICEPS TENODESIS Pretty Ames, DO [address] [place] [address] [facility] Reason Comments Follow-up Reason Onset Date Comments refill atorvastatin 01/10/2024 Reason Comments Med Refill Reason Comments Follow-up Wants to discuss blo od sugars. Noticed since off Jardiance his blood sugars have been ranging 97-265 Reason Onset Date Comments Med Refill 12/09/2023 Reason Onset Date Comments refills 12/13/2023 Ordered Prescriptions (unrec ognized section and content) [...] Care Teams (unrecognized sec tion and content) Weld Fitter Relationship Specialty Start Date End Date Daniel Pop DO [address] [place] [id number] PCP - General Family Medicine 11/24/16 Weld Fitter Relationship Specialty Start Date End Date Daniel Pop DO [address] [place] [id number] PCP - General Family Medicine 10/14/22 Laya Plata, FLEXIBLE BABYSITTER [address] [place] [address] PCP - ACO Reach 01/04/24 Laya Plata, FLEXIBLE BABYSITTER [address] [place] [address] Nurse Practitioner Family Medicine 10/14/22 Weld Fitter Relationship Specialty Start Date End Date Daniel Pop DO [address] [place], [place] [id number] PCP - General Family Medicine 10/14/22 Laya Plata, FLEXIBLE BABYSITTER [address] [place] [address] PCP - ACO Reach 01/04/24 Laya Plata, FLEXIBLE BABYSITTER [address] [place] [address] Nurse Practitioner Family Medicine 10/14/22 Weld Fitter Relationship Specialty Start Date End Date Daniel Pop DO [address] [place] [address] PCP - General Family Medicine 10/14/22 Laya Plata, FLEXIBLE BABYSITTER [address] [place] [address] PCP - ACO Reach 01/04/24 Laya Plata, FLEXIBLE BABYSITTER [address] [place] [address] Nurse Practitioner Family Medicine 10/14/22 Weld Fitter Relationship Specialty Start Date End Date Daniel Pop DO [address] [place] [address] PCP - General Family Medicine 10/14/22 Laya Plata, FLEXIBLE BABYSITTER [address] [place] [address] PCP - ACO Reach 01/04/24 Laya Plata, FLEXIBLE BABYSITTER [address] [place] [address] Nurse Practitioner Family Medicine 10/14/22 Weld Fitter Relationship Specialty Start Date End Date Daniel Pop DO [address] [place] [address] PCP - General Family Medicine 10/14/22 Laya Plata, FLEXIBLE BABYSITTER [address] [place] [address] PCP - ACO Reach 01/04/24 Laya Plata, FLEXIBLE BABYSITTER [address] [place] [address] Nurse Practitioner Family Medicine 10/14/22 Weld Fitter Relationship Specialty Start Date End Date Daniel Pop DO [address] [place] [address] PCP - General Family Medicine 10/14/22 Daniel Pop DO [address] [place] [address] PCP - ACO Reach 06/04/23 Laya Plata, FLEXIBLE BABYSITTER [address] [place] [address] Nurse Practitioner Family Medicine 10/14/22 Weld Fitter Relationship Specialty Start Date End Date Daniel Pop DO [address] [place] [address] PCP - General Family Medicine 10/14/22 Daniel Pop DO [address] [place] [address] PCP - ACO Reach 06/04/23 Laya Plata, FLEXIBLE BABYSITTER [address] [place] [address] Nurse Practitioner Family Medicine 10/14/22 Weld Fitter Relationship Specialty Start Date End Date Daniel Pop DO [address] [place] [address] PCP - General Family Medicine 10/14/22 Daniel Pop DO [address] [place] [address] PCP - ACO Reach 06/04/23 Laya Plata, FLEXIBLE BABYSITTER [address] [place] [address] Nurse Practitioner Family Medicine 10/14/22 Weld Fitter Relationship Specialty Start Date End Date Daniel Pop DO [address] [place] [address] PCP - General Family Medicine 10/14/22 Daniel Pop DO [address] [place] [address] PCP - ACO Reach 06/04/23 Laya Plata FLEXIBLE BABYSITTER [address] [place] [address] Nurse Practitioner Family Medicine 10/14/22 Weld Fitter Relationship Specialty Start Date End Date Daniel Pop DO [address] [place] [address] PCP - General Family Medicine 10/14/22 Daniel Pop DO [address] [place] [address] PCP - ACO Reach 06/04/23 Laya Plata FLEXIBLE BABYSITTER [address] [place] [address] Nurse Practitioner Family Medicine 10/14/22 (unrecognized sect ion and content) No Status Records FoundNo Status Records FoundNo Status Records FoundNo Status Records Found INFORMATION SOURCE (unrecogn ized section and content) DATE CREATED AUTHOR 04/29/2022 [facility] DATE CREATED AUTHOR AUTHOR'S ORGANIZ ATION 02/03/2023 [facility] DATE CREATED AUTHOR AUTHOR'S ORGANIZ ATION 06/19/2023 Bella bustos DATE CREATED AUTHOR AUTHOR'S ORGANIZ ATION 01/18/2024 [facility] EPIC FOR RECORDS PERTAINING TO [...] BE BASED ON THE PRIMARY CLINICAL RECORDS. [facility] [employer] [facility]. provides no warranty or guarantee of the accuracy or completeness of information in this document.
== END 2024-03-31 07:44 | disposition home or self-care (01) ==
LOC: MRI 07:43
PROVIDERS: Visit Provider Nurse Practitioner
DX: M25.512 Pain in left shoulder (principal); M19.012 Primary osteoarthritis, left shoulder; S46.812A Strain of other muscles, fascia and tendons at shoulder and upper arm level, left arm, initial encounter
CPT/HCPCS: 73221

== ENCOUNTER 2024-07-06 13:50 | Outpatient (OUT) | payer MEDICARE, OTHER, SELFPAY ==
--- NOTE | 2024-07-06 14:40 | PM.CN ---
Consult Note: HPI Data of Consult Patient: known to practice within the last 3 years Requesting Physician: Fariha Meehan NP Primary Care Provider: Non-Staff Physician, MD Consult Narrative Reason for consult: f/u Narrative: Tony Starks an 79 year old male presents for evaluation and management of chronic left shoulder pain and right low back pain. currently following with orthopedic surgery for evaluation of left shoulder pain. pain today 9/10 increasing with ROM and activity. pt reports he has failed to benefit from PT, heat, ice, tylenol, and NSAIDs. recently prescribed tylenol #3 BID PRN for moderate to severe pain with moderate relief without side effects. pt would like to continue with medication management through our office. cc:: CC: Fariha Meehan NP Review of Systems ROS Status of ROS 10 or more systems reviewed and unremarkable except as noted in history and below Musculoskeletal Reports: joint pain PFSH PFSH Medical History (Updated 03/01/24 @ 10:40 by Shannon Pérez) Osteoarthritis ?M19.90 - Unspecified osteoarthritis, unspecified site (ICD-10) Low back pain ?M54.50 - Low back pain, unspecified (ICD-10) Hearing deficit ?H91.90 - Unspecified hearing loss, unspecified ear (ICD-10) High cholesterol ?E78.00 - Pure hypercholesterolemia, unspecified (ICD-10) Hypertension ?I10 - Essential (primary) hypertension (ICD-10) Diabetes 1.5, managed as type 2 ?E13.9 - Other specified diabetes mellitus without complications (ICD-10) Sleep apnea ?G47.30 - Sleep apnea, unspecified (ICD-10) Surgical History (Updated 03/01/24 @ 10:40 by Shannon Pérez) History of uvulopalatopharyngoplasty ?Z98.890 - Other specified postprocedural states (ICD-10) H/O arthroscopic knee surgery ?Z98.890 - Other specified postprocedural states (ICD-10) H/O nasal septoplasty ?Z98.890 - Other specified postprocedural states (ICD-10) Meds Home Medications and Allergies Home Medications ?Medication ?Instructions ?Recorded ?Confirmed ?Type acetaminophen 650 mg 650 mg PO Q12H PRN fever or pain 01/27/23 02/22/24 History tablet,extended release (8 Hour Pain Reliever) apple cider vinegar 600 mg capsule 600 mg PO TID 01/27/23 02/22/24 History aspirin 81 mg tablet,delayed 81 mg PO DAILY 01/27/23 02/22/24 History release (Adult Aspirin Regimen) atenolol 50 mg tablet 50 mg PO DAILY 01/27/23 02/22/24 History atorvastatin 40 mg tablet 40 mg PO DAILY 01/27/23 02/22/24 History cholecalciferol (vitamin D3) 50 50 mcg PO DAILY 01/27/23 02/22/24 History mcg (2,000 unit) tablet (Vitamin D3) famotidine 20 mg tablet 20 mg PO BID 01/27/23 01/27/23 History fluticasone propionate 50 1 spray intranasal BID PRN allergy 01/27/23 02/22/24 History mcg/actuation nasal symptoms spray,suspension (24 Hour Allergy Relief) hydrochlorothiazide 25 mg tablet 25 mg PO DAILY 01/27/23 02/22/24 History insulin degludec 100 unit/mL (3 64 unit subcut DAILY 01/27/23 02/22/24 History mL) subcutaneous pen (Tresiba FlexTouch U-100 insulin) lisinopril 20 mg tablet 20 mg PO BID 01/27/23 02/22/24 History loratadine 10 mg capsule 10 mg PO DAILY 01/27/23 02/22/24 History melatonin 10 mg capsule 10 mg PO DAILY 01/27/23 02/22/24 History multivitamin (Daily Multi-Vitamin 1 tab PO DAILY 01/27/23 02/22/24 History tablet) omeprazole 20 mg capsule,delayed 20 mg PO DAILY 01/27/23 02/22/24 History release pyridoxine (vitamin B6) 100 mg 100 mg PO DAILY 01/27/23 02/22/24 History tablet zinc 25 mg tablet 25 mg PO DAILY 01/27/23 02/22/24 History tramadol 50 mg tablet 50 mg PO BID PRN pain #60 tabs 03/09/23 02/22/24 Rx ascorbic acid (vitamin C) 500 mg mg PO 03/01/24 History capsule bexagliflozin 20 mg tablet 20 mg PO DAILY 03/01/24 03/01/24 History (Brenzavvy) diphenhydramine 25 1 tab PO QPM PRN pain 03/01/24 03/01/24 History mg-acetaminophen 500 mg tablet (Tylenol PM Extra Strength) sitagliptin phosphate 100 mg 100 mg PO DAILY 03/01/24 03/01/24 History tablet (Januvia) acetaminophen 300 mg-codeine 30 mg 1 tab PO BID PRN pain #60 tabs 04/11/24 Rx tablet Allergies Allergy/AdvReac Type Severity Reaction Status Date / Time No Known Drug Allergies Allergy Verified 01/27/23 10:47 Exam Constitutional Documenting provider has reviewed patient's vital signs: yes Common normals: no apparent distress, oriented x3, healthy appearing, alert and well nourished General appearance: cooperative [facility] Common normals: normocephalic, hearing grossly normal bilaterally and moist oral mucous membranes Head and scalp: normocephalic Eye Common normals: PERRL Pupil: PERRL Neck & C-Spine Common normals: full ROM General: normal visual inspection Other: no pain with rotation, flexion, extension. No pain with palpation. Denies numbness/tingling/weakness in bilateral arms or hands. No tenderness over left suprascapular or axillary nerve pattern. Chest Common normals: inspection of chest normal Respiratory Common normals: normal respiratory effort, no retractions and no use of accessory muscles Extremity Left upper extremity: shoulder joint (no edema. ROM mildly impaired. ) Other: pain over left suprascapular nerve and left AC joint. positive empty can test ROM normal without pain Neuro Common normals: oriented x3, CN's II-XII intact bilaterally, moves all extremities, no focal motor deficits, no sensory deficits noted and deep tendon reflexes 2+ bilaterally Sensorium/orientation: alert Motor exam: strength 5/5 throughout and no movement abnormalities noted Psych Common normals: mental status grossly normal, thought process normal, cooperative, affect normal, speech normal and activity/motor behavior normal Speech: normal speech Thought process: normal thought process Assessment and Plan Assessment and Plan (1) Primary osteoarthritis, left shoulder: (2) Left shoulder pain: (3) Chronic use of opiate drug for therapeutic purpose: (4) Unspecified mononeuropathy of right lower limb: Plan continue tylenol #3 BID PRN moderate to severe pain, risks vs benefits reviewed. hx of overtaking opioids, will monitor closely continue HEP as tolerated continue f/u with orthopedics f/u 3 months, sooner if needed
== END 2024-07-06 13:51 | disposition home or self-care (01) ==
LOC: PM 13:51
PROVIDERS: Visit Provider Nurse Practitioner
DX: M19.012 Primary osteoarthritis, left shoulder (principal); M25.512 Pain in left shoulder; Z79.891 Long term (current) use of opiate analgesic; G57.91 Unspecified mononeuropathy of right lower limb
CPT/HCPCS: G0463

== ENCOUNTER 2024-10-11 10:39 | Outpatient (OUT) | payer MEDICARE, OTHER, SELFPAY ==
--- NOTE | 2024-10-11 11:05 | PM.CN ---
Consult Note: HPI Data of Consult Patient: known to practice within the last 3 years Consult date: 10/11/24 Requesting Physician: Fariha Meehan NP Primary Care Provider: Laya Thompson RN, [employer] [facility] Consult Narrative Reason for consult: f/u Narrative: Tony Starks an 79 year old male presents for evaluation and management of chronic left shoulder pain and right low back pain. currently following with orthopedic surgery for evaluation of left shoulder pain. pain today 8/10 increasing with ROM and activity. pt reports he has failed to benefit from PT, heat, ice, tylenol, and NSAIDs. utilizing tylenol #3 BID PRN for moderate to severe pain with moderate relief without side effects. pt continues to f/u with orthopedics is interested in shoulder surgery this fall if a candidate. cc:: CC: Fariha Meehan NP Review of Systems ROS Status of ROS 10 or more systems reviewed and unremarkable except as noted in history and below Musculoskeletal Reports: joint pain PFSH PFSH Medical History (Updated 03/01/24 @ 10:40 by Shannon Pérez) Osteoarthritis ?M19.90 - Unspecified osteoarthritis, unspecified site (ICD-10) Low back pain ?M54.50 - Low back pain, unspecified (ICD-10) Hearing deficit ?H91.90 - Unspecified hearing loss, unspecified ear (ICD-10) High cholesterol ?E78.00 - Pure hypercholesterolemia, unspecified (ICD-10) Hypertension ?I10 - Essential (primary) hypertension (ICD-10) Diabetes 1.5, managed as type 2 ?E13.9 - Other specified diabetes mellitus without complications (ICD-10) Sleep apnea ?G47.30 - Sleep apnea, unspecified (ICD-10) Surgical History (Updated 03/01/24 @ 10:40 by Shannon Pérez) History of uvulopalatopharyngoplasty ?Z98.890 - Other specified postprocedural states (ICD-10) H/O arthroscopic knee surgery ?Z98.890 - Other specified postprocedural states (ICD-10) H/O nasal septoplasty ?Z98.890 - Other specified postprocedural states (ICD-10) Meds Home Medications and Allergies Home Medications ?Medication ?Instructions ?Recorded ?Confirmed ?Type acetaminophen 650 mg 650 mg PO Q12H PRN fever or pain 01/27/23 02/22/24 History tablet,extended release (8 Hour Pain Reliever) apple cider vinegar 600 mg capsule 600 mg PO TID 01/27/23 02/22/24 History aspirin 81 mg tablet,delayed 81 mg PO DAILY 01/27/23 02/22/24 History release (Adult Aspirin Regimen) atenolol 50 mg tablet 50 mg PO DAILY 01/27/23 02/22/24 History atorvastatin 40 mg tablet 40 mg PO DAILY 01/27/23 02/22/24 History cholecalciferol (vitamin D3) 50 50 mcg PO DAILY 01/27/23 02/22/24 History mcg (2,000 unit) tablet (Vitamin D3) famotidine 20 mg tablet 20 mg PO BID 01/27/23 01/27/23 History fluticasone propionate 50 1 spray intranasal BID PRN allergy 01/27/23 02/22/24 History mcg/actuation nasal symptoms spray,suspension (24 Hour Allergy Relief) hydrochlorothiazide 25 mg tablet 25 mg PO DAILY 01/27/23 02/22/24 History insulin degludec 100 unit/mL (3 64 unit subcut DAILY 01/27/23 02/22/24 History mL) subcutaneous pen (Tresiba FlexTouch U-100 insulin) lisinopril 20 mg tablet 20 mg PO BID 01/27/23 02/22/24 History loratadine 10 mg capsule 10 mg PO DAILY 01/27/23 02/22/24 History melatonin 10 mg capsule 10 mg PO DAILY 01/27/23 02/22/24 History multivitamin (Daily Multi-Vitamin 1 tab PO DAILY 01/27/23 02/22/24 History tablet) omeprazole 20 mg capsule,delayed 20 mg PO DAILY 01/27/23 02/22/24 History release pyridoxine (vitamin B6) 100 mg 100 mg PO DAILY 01/27/23 02/22/24 History tablet zinc 25 mg tablet 25 mg PO DAILY 01/27/23 02/22/24 History tramadol 50 mg tablet 50 mg PO BID PRN pain #60 tabs 03/09/23 02/22/24 Rx ascorbic acid (vitamin C) 500 mg mg PO 03/01/24 History capsule bexagliflozin 20 mg tablet 20 mg PO DAILY 03/01/24 03/01/24 History ([place]) diphenhydramine 25 1 tab PO QPM PRN pain 03/01/24 03/01/24 History mg-acetaminophen 500 mg tablet (Tylenol PM Extra Strength) sitagliptin phosphate 100 mg 100 mg PO DAILY 03/01/24 03/01/24 History tablet (Januvia) acetaminophen 300 mg-codeine 30 mg 1 tab PO BID PRN pain #60 tabs 04/11/24 Rx tablet Allergies Allergy/AdvReac Type Severity Reaction Status Date / Time No Known Drug Allergies Allergy Verified 01/27/23 10:47 Exam Constitutional Documenting provider has reviewed patient's vital signs: yes Common normals: no apparent distress, oriented x3, healthy appearing, alert and well nourished General appearance: cooperative [facility] Common normals: normocephalic, hearing grossly normal bilaterally and moist oral mucous membranes Head and scalp: normocephalic Eye Common normals: PERRL Pupil: PERRL Neck & C-Spine Common normals: full ROM General: normal visual inspection Other: no pain with rotation, flexion, extension. No pain with palpation. Denies numbness/tingling/weakness in bilateral arms or hands. No tenderness over left suprascapular or axillary nerve pattern. Chest Common normals: inspection of chest normal Respiratory Common normals: normal respiratory effort, no retractions and no use of accessory muscles Extremity Left upper extremity: shoulder joint (no edema. ROM mildly impaired. ) Other: pain over left suprascapular nerve and left AC joint. positive empty can test ROM normal without pain Neuro Common normals: oriented x3, CN's II-XII intact bilaterally, moves all extremities, no focal motor deficits, no sensory deficits noted and deep tendon reflexes 2+ bilaterally Sensorium/orientation: alert Motor exam: strength 5/5 throughout and no movement abnormalities noted Psych Common normals: mental status grossly normal, thought process normal, cooperative, affect normal, speech normal and activity/motor behavior normal Speech: normal speech Thought process: normal thought process Assessment and Plan Assessment and Plan (1) Primary osteoarthritis, left shoulder: (2) Left shoulder pain: (3) Chronic use of opiate drug for therapeutic purpose: Assessment and Plan: I feel these medications are improving the patient's quality of life and allow them to tolerate activities of daily living as well as participate in recreational activity.? The patient does not report intolerable side effects. The patient is NOT opioid naive and non-pharmacologic and non-opioid treatment has failed to significantly relieve the patient's pain and improve functionality. The patient has a diagnosis that is related to a somatic or visceral pain etiology. ? ?? I reviewed with the patient the potential risks and side effects with the use of? opioid medications including but not limited to respiratory depression,? sedation, and even . I advised the patient to avoid the use of any other? sedation substances including alcohol, THC, and benzodiazepines while? taking opioid medications due to the risk of compounding side effects and? detrimental outcomes. within the last 12 months I have reviewed the [employer], pain treatment agreement and urine drug screen.? ?? A drug screen was completed within the last year, and no aberrancies were noted regarding their use of controlled substances. The patient understands they are subject to the terms and conditions of the pain contract that they have signed. ? ?? I have checked an [place] report on this patient today and there are no aberrancies noted in the prescribing history.? (4) Unspecified mononeuropathy of right lower limb: Plan continue tylenol #3 BID PRN moderate to severe pain, risks vs benefits reviewed continue HEP as tolerated continue f/u with orthopedics f/u 3 months, sooner if needed
== END 2024-10-11 10:40 | disposition home or self-care (01) ==
PROVIDERS: PCP Nurse Practitioner; Visit Provider Nurse Practitioner
DX: M19.012 Primary osteoarthritis, left shoulder (principal); M25.512 Pain in left shoulder; Z79.891 Long term (current) use of opiate analgesic; G57.91 Unspecified mononeuropathy of right lower limb
CPT/HCPCS: G0463

== ENCOUNTER 2025-01-11 10:23 | Outpatient (OUT) | payer MEDICARE, OTHER, SELFPAY ==
--- OUTSIDE RECORDS SUMMARY | 2025-01-11 10:42 | XMS_ITS | CCD ---
Author Organization [facility] Care Team Providers Care Manager E Commerce Name Role Phone Daniel Pop Primary Care Provider [phone] KESHAWN, DR OTF Villatoro Consulting Unavailable JOO, [...] Unavailable JOO, DR ABNER Saini Admitting Unavailable DINORA LAROSE Consulting Unavailable JOO, DR ABNER Saini Attending Unavailable JESSE WOOD Consulting Unavailable JANESSAC, DR VEGA Primary Care Unavailable [...] Daniel Pop DO Primary Care Provider Jay DIRECTOR PRODUCT, Laya L Unavailable Jay DIRECTOR PRODUCT, Laya L Unavailable Daniel Pop DO Unavailable LAYA PLATA Attending Unavailable BIGG BOWENS Attending Unavailable BIGG BOWENS Referring Unavailable BIGG BOWENS Attending Unavailable BIGG BOWENS Referring Unavailable LAYA PLATA Attending Unavailable BIGG BOWENS Attending Unavailable BIGG BOWENS Referring Unavailable NICOL SALGADO Attending Unavailable LAYA PLATA Attending Unavailable NICOL SALGADO Attending Unavailable PRETTY MORELAND Referring Unavailable PRETTY MORELAND Attending Unavailable LAYA PLATA Attending Unavailable Medications Current Medications Medication Drug Class(es) Dates Sig (Normalized) Sig (Original) acetaminophen 300 mg / codeine phosphate 30 mg oral tablet (20 sources) Opioid Agonist Start: 11-10-2024 acetaminophen-code ine (Tylenol w/ Codeine #3) 300-30 MG tablet 11/10/2024 Active Start: 04-12-2024 End: 09-05-2024 acetaminophen-codeine (Tylen ol w/ Codeine #3) 300-30 MG tablet 04/12/2024 09/05/2024 Discontinued (Therapy completed) acetaminophen 325 mg / oxyCODONE hydrochloride 5 mg oral tablet (2 sources) Opioid Agonist Start: 05-09-2020 End: 05-12-2020 take 1-2 tablets by mouth every six hours as needed for pain oxyCODONE-acetaminophen (PERCOCET) 5-325 MG per tablet Indications: Rotator cuff syndrome of right shoulder Take 1-2 tablets by mouth every 6 hours as needed for Pain for up to 3 days. 40 tablet 0 05/09/2020 05/12/2020 Active amoxicillin 500 mg oral capsule (13 sources) Penicillin-class Antibacterial Start: 08-17-2024 amoxicillin (Amoxil) 500 MG capsule Take 500 mg by mouth 08/17/2024 Active apple cider vinegar 600 mg oral capsule (20 sources) take 1 capsule by mouth every eight hours Apple Cider Vinegar 600 MG capsule Take 1 tablet by mouth every 8 (eight) hours Active APPLE CIDER VINE GAR PO Take by mouth 0 Active ascorbic acid 500 mg oral capsule (20 sources) Vitamin C Ascorbic Acid (V itamin C) 500 MG capsule 1 (one) time each day at the same time Active aspirin 81 mg delayed release oral tablet (20 sources) Platelet Aggregation Inhibitor, Nonsteroidal Anti-inflammatory Drug aspirin 81 MG EC tablet 1 (one) time each day at the same time Active take 1 tablet by mouth once felisa y aspirin 81 MG tablet Take 81 mg by mouth daily. 0 Active atenolol 50 mg oral tablet (20 sources) beta-Adrenergic Kostas Start: 07-19-2023 End: 07-10-2024 take 1 tablet by mouth once daily atenolol (Tenormin) 50 MG tablet Indications: Primary hypertension Take 1 tablet (50 mg) by mouth Daily 90 tablet 1 07/10/2024 Active take 1 tablet by mouth once felisa y atenolol (TENORMIN) 50 MG tablet Take 50 mg by mouth daily. 0 Active Bexagliflozin (Brenzavvy) 20 MG tablet (20 sources) Start: 01-03-2025 take 1 tablet by mouth once daily Bexagliflozin (Brenzavvy) 20 MG tablet Indications: Type 2 diabetes mellitus with complication (HCC) Take 20 mg by mouth Daily 90 tablet 3 01/03/2025 Active Start: 01-17-2024 End: 01-03-2025 take 1 tablet by mouth once daily Bexagliflozin (Brenzavvy) 20 MG tablet Indications: Type 2 diabetes mellitus with complication (HCC) Take 20 mg by mouth Daily 90 tablet 3 01/17/2024 01/03/2025 Discontinued (Reorder) Start: 01-17-2024 take 1 tablet by liv th once daily Bexagliflozin (Brenzavvy) 20 MG tablet Indications: Type 2 diabetes mellitus with complication (HCC) Take 20 mg by mouth Daily 90 tablet 3 01/17/2024 Active Start: 01-17-2024 take 1 tablet by liv th once daily Bexagliflozin (Brenzavvy) 20 MG tablet [...] 0 Active cholecalciferol 0.05 mg oral tablet (20 sources) Vitamin D cholecalciferol (Vitamin D-3) 50 MCG (1999 UT) tablet 1 (one) time each day at the same time Active docusate sodium 100 mg oral capsule (18 sources) Start: 05-09-2020 take 1 capsule by mouth twice daily docusate sodium (COLACE) 100 MG capsule Take 1 capsule by mouth 2 times daily 40 capsule 0 05/09/2020 Active famotidine 20 mg oral tablet (20 sources) Histamine-2 Receptor Antagonist Start: 06-21-2023 End: 06-05-2024 take 1 tablet by mouth in the morning famotidine (Pepcid) 20 MG tablet Indications: Chronic GERD Take 1 tablet (20 mg) by mouth in the morning and 1 tablet (20 mg) before bedtime. 180 tablet 3 06/05/2024 Active Start: 02-02-2022 famotidine (PE PCID) 20 MG tablet fluticasone propionate 0.05 mg/actuat metered dose nasal spray (20 sources) Corticosteroid Start: 12-09-2023 End: 12-18-2024 take 1 spray(s) nasal route once daily fluticasone (Flonase) 50 MCG/ACT nasal spray Indications: Environmental and seasonal allergies Administer 1 spray into each nostril Daily Shake gently. Before first use, prime pump. After use, clean tip and replace cap. 48 mL 3 12/18/2024 Active Start: 01-07-2023 End: 12-09-2023 take 1 spray(s) nasal route twice daily fluticasone (Flonase) 50 MCG/ACT nasal spray Indications: Environmental and seasonal allergies SPRAY ONE SPRAY INTO EACH NOSTRIL TWO TIMES DAILY 48 mL 3 01/07/2023 12/09/2023 Discontinued (Reorder) FLUTICASONE PROP IONATE, NASAL, NA by Nasal route 0 Active hydroCHLOROthiazide 25 mg oral tablet (20 sources) Thiazide Diuretic Start: 04-20-2023 End: 04-03-2025 take 1 tablet by mouth once daily hydroCHLOROthiazide (HYDRODiuril) 25 MG tablet Indications: Primary hypertension Take 1 tablet (25 mg) by mouth Daily 90 tablet 3 01/03/2025 04/03/2025 Active 3 ml insulin aspart, human 100 unt/ml pen injector (3 sources) Insulin Analog Start: 01-05-2025 End: 01-05-2025 insulin aspart FlexPen (NovoLOG) 100 UNIT/ML pen Indications: Type 2 diabetes mellitus with complication (HCC) Once daily before evening meal 1 each 2 01/05/2025 01/05/2025 Discontinued (Reorder) Start: 01-05-2025 insulin aspart FlexPen (NovoLOG) 100 UNIT/ML pen Indications: Type 2 diabetes mellitus with complication (HCC) 5 units Once daily before evening meal 1 each 2 01/05/2025 Active 3 ml insulin degludec 200 unt/ml pen injector (20 sources) Insulin Analog Start: 09-24-2023 End: 05-21-2024 inject 34 [IU] by subcutaneous injection in the morning insulin degludec (Tresiba FlexTouch) 200 UNIT/ML injection Indications: Type 2 diabetes mellitus with other specified complication, 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 27 mL 3 05/21/2024 Active Insulin Degludec (TRESIBA SC) Inject 60 Units into the skin nightly 0 Active insulin lispro 100 unt/ml injectable solution (3 sources) Insulin Analog Start: 01-03-2025 End: 01-05-2025 Insulin Lispro 100 UNIT/ML solution Indications: Type 2 diabetes mellitus with complication (HCC) Inject 5 Units as directed in the evening. Take before meals 10 mL 1 01/03/2025 01/05/2025 Discontinued (Therapy completed) lisinopril 20 mg oral tablet (20 sources) Angiotensin Converting Enzyme Inhibitor Start: 05-24-2023 End: 12-18-2024 take 1 tablet by mouth in the morning lisinopril 20 MG tablet Indications: Primary hypertension Take 1 tablet (20 mg) by mouth in the morning and 1 tablet (20 mg) before bedtime. 180 tablet 1 12/18/2024 Active take 2 tablets by mouth twice da ori lisinopril (PRINIVIL;ZESTRIL) 10 MG tablet Take 20 mg by mouth 2 times daily 0 Active loratadine 10 mg oral tablet (20 sources) Start: 03-02-2023 End: 08-30-2024 take 1 tablet by mouth once daily loratadine (Claritin) 10 MG tablet Indications: Environmental and seasonal allergies Take 1 tablet (10 mg) by mouth Daily 90 tablet 3 08/30/2024 Active LORATADINE PO Ta ke 10 mg by mouth 0 Active magnesium sulfate 0.0277 meq/ml / potassium sulfate 0.0374 meq/ml / sodium sulfate 0.257 meq/ml oral solution (1 source) Start: 04-20-2022 sodium-potassi um-mag sulfate (SUPREP BOWEL PREP KIT) 17.5-3.13-1.6 GM/177ML SOLN solution Use as directed. 1 each 0 04/20/2022 Active Melatonin (1 source) MELATONIN PO Eric e by mouth 0 Active melatonin 3 mg / vitamin b6 10 mg oral tablet (20 sources) Melatonin 3-10 M G tablet Active 24 hr metFORMIN hydrochloride 1000 mg / SITagliptin 50 mg extended release oral tablet (1 source) Biguanide, Dipeptidyl Peptidase 4 Inhibitor Start: 03-31-2022 JANUMET XR 50-1000 M G TB24 per extended release tablet Misc Natural Products (OSTEO BI-FLEX ADV JOINT SHIELD PO) (4 sources) Misc Natural Pro ducts (OSTEO BI-FLEX ADV JOINT SHIELD PO) Take by mouth Active Multiple Vitamins-Minerals (Multivitamin Adults 50+) tablet (20 sources) Multiple Vitamin s-Minerals (Multivitamin Adults 50+) tablet 1 (one) time each day at the same time Active Multiple Vitamin s-Minerals (Multivitamin Adults 50+) tablet 1 (one) time [...] capsule (20 sources) Proton Pump Inhibitor Start: 3 End: take 1 capsule by mouth once daily omeprazole (PriLOSEC) [address] capsule Indications: Chronic GERD Take 1 capsule (20 mg) by mouth 1 (one) time each day at the same time 90 capsule 1 12/05/2024 Active take 1 capsule by mouth once nik ly omeprazole (PRILOSEC) 20 MG capsule Take 20 mg by mouth daily. 0 Active 2 ml ondansetron 2 mg/ml injection (1 source) Serotonin-3 Receptor Antagonist Start: 05-09-2020 4 mg, Intravenous, EVERY 6 HOURS PRN, Nausea, Vomiting, Starting [facility] 05/09/20 at 1438, Post-op oxyCODONE (1 source) Opioid Agonist Start: 05-09-2020 oxyCODONE (ROXICODONE) immediate release tablet 5 mg raNITIdine 150 mg oral capsule (20 sources) Histamine-2 Receptor Antagonist take 2 capsules by mouth once daily as needed ranitidine (ZANTAC) 150 MG capsule Take 300 mg by mouth daily as needed 0 Active rosuvastatin calcium 10 mg oral tablet (4 sources) HMG-CoA Reductase Inhibitor Start: 01-03-2025 End: 07-02-2025 take 1 tablet by mouth once daily rosuvastatin (Crestor) 10 MG tablet Indications: Mixed hyperlipidemia Take 1 tablet (10 mg) by mouth Daily 30 tablet 1 01/03/2025 07/02/2025 Active SITagliptin 100 mg oral tablet (20 sources) Dipeptidyl Peptidase 4 Inhibitor Start: 09-17-2023 End: 09-19-2024 take 1 tablet by mouth once daily SITagliptin (Januvia) 100 MG tablet Indications: Type 2 diabetes mellitus with complication (HCC) Take 1 tablet (100 mg) by mouth Daily 90 tablet 3 09/19/2024 Active take 1 tablet by liv th [...] e flush 0.9 % injection 10 mL Zinc (1 source) ZINC PO Take by mouth 0 Active zinc gluconate 30 mg oral ta blet (20 sources) zinc 30 MG table t 1 (one) time each day at the same time Active Completed/Discontinued Medications Medication Drug Class(es) Dates Sig (Normalized) Sig (Original) atorvastatin 40 mg oral tablet (20 sources) HMG-CoA Reductase Inhibitor Start: 07-13-2023 End: 01-03-2025 take 1 tablet by mouth once daily atorvastatin (Lipitor) 40 MG tablet Indications: Mixed hyperlipidemia Take 1 tablet (40 mg) by mouth Daily 90 tablet 3 01/10/2024 01/03/2025 Discontinued (Side effects) take 1 tablet by mouth once felisa y atorvastatin (LIPITOR) 40 MG tablet Take 40 mg by mouth daily. 0 Active betamethasone 3 mg/ml / betamethasone acetate 3 mg/ml injectable suspension (16 sources) Corticosteroid Start: 12-18-2024 End: 12-18-2024 1 mL, Intra-articular, Once PRN Procedure, Starting on 12/18/24 at 1047, For 1 dose Start: 12-18-2024 End: 12-18-2024 betamethasone acetate-betame thasone sodium phosphate (Celestone) injection 1 mL Start: 05-11-2024 End: 05-11-2024 1 mL, Intra-articular, Once PRN Procedure, Starting on Reny 05/11/24 at 1535, For 1 dose Start: 05-11-2024 End: 05-11-2024 betamethasone acetate-betame thasone sodium phosphate (Celestone) injection 1 mL ceFAZolin 2000 mg injection (1 source) Cephalosporin Antibacterial Start: 05-09-2020 End: 05-09-2020 ceFAZolin (ANCEF) 2000 mg in dextrose 3 % 50 mL IVPB (duplex) dapagliflozin 10 mg oral tablet (8 sources) Sodium-Glucose Cotransporter 2 Inhibitor Start: 01-17-2024 End: 04-24-2024 take 1 tablet by mouth once daily dapagliflozin (Farxiga) 10 MG Indications: Type 2 diabetes mellitus with complication (CMS/HCC) Take 1 tablet (10 mg) by mouth Daily 28 tablet 01/17/2024 04/24/2024 Discontinued insulin detemir 100 unt/ml injectable solution (18 [...] (with meals). 0 05/09/2020 Discontinued (Therapy completed) vitamin b6 100 mg oral tablet (20 sources) End: 05-11-2024 Pyridoxine HCl (Vitamin B6) 100 MG tablet 1 (one) time each day at the same time. 05/11/2024 Discontinued (Therapy completed) take 2 tablets by mouth once nik ly vitamin B-6 (PYRIDOXINE) 50 MG tablet Take 100 mg by mouth daily 0 Active Problems Active Problems Problem Classification Problem Date [...] complications] Onset: 11-09-2016 Resolved: 10-20-2022 11-09-2016 Chronic Diabetes mellitus without complication (1 source) Increased glucose level; Translations: [Other abnormal glucose] 05-01-2024 Episodic Disorders of lipid metabolism (20 sources) Hypercholesterolemia; Translations: [Pure hypercholesterolemia, unspecified] Onset: 11-09-2016 Resolved: 10-20-2022 11-09-2016 Chronic Esophageal disorders (20 sources) Gastroesophageal reflux disease without esophagitis; Translations: [Gastro-esophageal reflux disease without esophagitis] Onset: 11-09-2016 Resolved: 10-20-2022 11-09-2016 Chronic Essential hypertension (20 sources) Hypertensive disorder; Translations: [Essential (primary) hypertension] Onset: 11-09-2016 11-09-2016 Chronic Nutritional deficiencies (20 sources) Vitamin D deficiency; Translations: [Vitamin D deficiency, unspecified] Onset: 10-19-2022 10-19-2022 Chronic Other aftercare (1 source) 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; 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] Onset: 04-13-2022 Episodic Other and unspecified benign neoplasm (2 sources) Melanocytic nevus of trunk; Translations: [Melanocytic nevi of trunk] 04-14-2024 Episodic Other circulatory disease (1 source) Other specified symptoms and signs involving the circulatory and respiratory systems; Translations: [Other specified symptoms and signs involving the circulatory and respiratory systems] Onset: 06-15-2023 Episodic Other connective tissue disease (1 source) Cramp and spasm; Translations: [Cramp and spasm] Onset: 06-15-2023 Episodic Other connective tissue disease (2 sources) Impingement syndrome of left shoulder region; Translations: [Impingement syndrome of left shoulder] 04-24-2024 Episodic Other connective tissue disease (1 source) Impingement syndrome of right shoulder region; Translations: [Impingement syndrome of right shoulder] Other connective tissue disease (17 sources) Right rotator cuff syndrome; Translations: [Rotator cuff syndrome of right shoulder] Onset: 05-09-2020 05-09-2020 Other inflammatory condition of skin (2 sources) Lichen simplex chronicus; Translations: [Lichen simplex chronicus] 04-14-2024 Episodic Other nervous system disorders (1 source) Other chronic pain; Translations: [OTHER CHRONIC PAIN] Onset: 04-13-2022 Chronic Other non-epithelial cancer of skin (2 sources) History of malignant basal cell neoplasm of skin; Translations: [Personal history of other malignant neoplasm of skin] 04-14-2024 Episodic Other non-traumatic joint disorders (20 sources) Arthropathy of multiple joints; Translations: [Arthropathy, unspecified] Onset: 10-19-2022 10-19-2022 Chronic Other non-traumatic joint disorders (5 sources) Polyarthropathy; Translations: [Arthropathy, unspecified] Onset: 10-19-2022 10-19-2022 Chronic Other non-traumatic joint disorders (4 sources) Pain in left hip; Translations: [PAIN IN LEFT HIP] Onset: 03-19-2022 Episodic Other non-traumatic joint disorders (15 sources) Pain in left shoulder; Translations: [Pain in joint, shoulder region] Onset: 07-22-2021 Episodic Other non-traumatic joint disorders (2 sources) Chronic pain of left upper limb; Translations: [Pain in left shoulder] 01-03-2025 Episodic Other non-traumatic joint disorders (1 source) Arthritis of joint of right shoulder region; Translations: [Arthritis of right shoulder region] Other skin disorders (6 sources) Actinic keratosis; Translations: [Actinic keratosis] 01-10-2024 Episodic Other skin disorders (2 sources) Seborrheic keratosis; Translations: [Other seborrheic keratosis] 04-14-2024 Episodic Other upper respiratory disease (20 sources) Allergic disposition; Translations: [Other allergic rhinitis] Onset: 10-19-2022 10-19-2022 Chronic Residual codes; unclassified (20 sources) Dependence on continuous positive airway pressure ventilation; Translations: [Dependence on other enabling machines and devices] Onset: 10-19-2022 10-19-2022 Chronic Residual codes; unclassified (20 sources) Obstructive sleep apnea syndrome; Translations: [Obstructive sleep apnea (adult) (pediatric)] Onset: 10-19-2022 10-19-2022 Chronic Spondylosis; intervertebral disc disorders; other back problems (20 sources) Sacroiliitis, not elsewhere classified; Translations: [Degeneration of lumbar intervertebral disc] Onset: 04-07-2022 Chronic Spondylosis; intervertebral disc disorders; other back problems (5 sources) Muscle spasm of back; Translations: [Sacrococcygeal disorders, not elsewhere classified] Onset: 04-13-2022 Episodic Sprains and strains (2 sources) Injury of superior glenoid labrum of shoulder joint; Translations: [Superior glenoid labrum lesion of left shoulder, initial encounter] 04-24-2024 Episodic Unclassified (1 source) Patient encounter status; Translations: [Pre-op chest exam] Unclassified (1 source) LOW BACK PAIN, UNSPECIFIED; Translations: [LOW BACK PAIN, UNSPECIFIED] Onset: 04-13-2022 Unclassified (8 sources) Left shoulder pain, unspecified chronicity 05-13-2024 Past or Other Problems Problem Classification Problem Date Documented Da te Episodic/Chronic Biliary tract disease (20 sources) Biliary colic; Translations: [Calculus of bile duct without cholangitis or cholecystitis without obstruction] Onset: 4 Resolved: 3 11-17-2013 Episodic Cataract (20 sources) Bilateral age-related cataract; Translations: [Unspecified age-related cataract] Onset: 3 Resolved: 4 09-15-2023 Chronic Gastritis and duodenitis (20 sources) Duodenitis; Translations: [Duodenitis without bleeding] Onset: 3 Resolved: 3 10-21-2022 Episodic Osteoarthritis (20 sources) Primary osteoarthritis, left shoulder; Translations: [Arthritis of right acromioclavicular joint] Onset: 2 Resolved: 4 05-21-2023 Chronic Other and unspecified benign neoplasm (2 sources) Senile angioma; Translations: [Hemangioma of skin and subcutaneous tissue] 11-30-2023 Episodic Other connective tissue disease (20 sources) Right rotator cuff syndrome; Translations: [Unspecified rotator cuff tear or rupture of right shoulder, not specified as traumatic] Onset: 1 Resolved: 3 05-09-2020 Episodic Other connective tissue disease (1 source) Other shoulder lesions, left shoulder; Translations: [OTHER SHOULDER LESIONS LT SHOULDER] Onset: 2 Episodic Other connective tissue disease (20 sources) Nontraumatic rotator cuff tear; Translations: [Unspecified rotator cuff tear or rupture of right shoulder, not specified as traumatic] Onset: 3 Resolved: 4 09-15-2023 Episodic Other connective tissue disease (20 sources) Tear of right rotator cuff; Translations: [Unspecified rotator cuff tear or rupture of right shoulder, not specified as traumatic] Onset: 3 Resolved: 4 09-15-2023 Episodic Other gastrointestinal disorders (20 sources) Swallowing finding; Translations: [Dysphagia, unspecified] Onset: 3 Resolved: 4 09-15-2023 Episodic Other male genital disorders (20 sources) Male erectile dysfunction, unspecified; Translations: [Impotence of organic origin] Onset: 3 Resolved: 4 09-15-2023 Chronic Other nervous system disorders (20 sources) Carpal tunnel syndrome of left wrist; Translations: [Carpal tunnel syndrome, left upper limb] Onset: 3 Resolved: 3 01-19-2023 Chronic Other nutritional; endocrine; and metabolic disorders (20 sources) Hypomagnesemia; Translations: [Hypomagnesemia] Onset: 3 Resolved: 4 10-19-2022 Chronic Residual codes; unclassified (20 sources) Sleep apnea; Translations: [Sleep apnea, unspecified] Onset: 7 Resolved: 3 11-09-2016 Chronic Results Test Name Value Interpretation Reference Range Facility No Panel Informationon 12-18 RAMAKRISHNA Thao T 12/18/2024 3:39 PM L Inj/Asp: L subacromial bursa on 12/18/2024 10:47 AM Indications: pain Details: 25 G needle, ultrasound-guided Medications: 1 mL betamethasone acetate-betamethasone sodium phosphate 6 (3-3) MG/ML Consent was given by the patient. Replaced by [facility] RAMAKRISHNA Thao T 12/18/2024 3:39 PM L Inj/Asp: L glenohumeral on 12/18/2024 10:46 AM Indications: pain Details: 25 G needle, ultrasound-guided Medications: 1 mL betamethasone acetate-betamethasone sodium phosphate 6 (3-3) MG/ML Consent was given by the patient. Replaced by [facility] XR Shoulder - left 2 Viewson 05-13-2024 Imaging Result: X-rays of the left shoulder Grashey and outlet views performed in our office on 04/24/2024 and 2 views Zanca and axillary taken today and saved to the permanent medical record are reviewed. There is mild glenohumeral joint space narrowing. The acromiohumeral interval is within normal limits. There's moderate arthritic change at the AC joint. There's a type 2 acromion. Visualized lung molina are clear. Replaced by [facility] No Panel Informationon 05-11 RAMAKRISHNA Thao T 05/13/2024 10:59 PM L Inj/Asp: L subacromial bursa on 05/11/2024 3:35 PM Indications: pain Details: 25 G needle, ultrasound-guided Medications: 1 mL betamethasone acetate-betamethasone sodium phosphate 6 (3-3) MG/ML Consent was given by the patient. Replaced by [facility] RAMAKRISHNA Thao T 05/13/2024 10:59 PM L Inj/Asp: L glenohumeral on 05/11/2024 3:34 PM Indications: pain Details: 25 G needle, ultrasound-guided Medications: 1 mL betamethasone acetate-betamethasone sodium phosphate 6 (3-3) MG/ML Consent was given by the patient. Replaced by [facility] XR Shoulder - left 2 Viewson 05-11-2024 Radiology Study observation (narrative) [facility] No Panel Informationon 04-14 [facility] No Panel InformationOrdered By: Birgit Hernandez on 01-10-2024 [facility] No Panel Informationon 11-29 [facility] XR CERVICAL SPINE (4-5 VIEWS )on 03-01-2023 [...] Noonan Jr., MD 03/01/23 Final result Normal [facility] XR SHOULDER LEFT (MIN 2 [...] Noonan Jr., MD 03/01/23 Final result Normal [facility] EKG 12 Leadon 04-20-2022 Atrial Rate 60 BPM [employer] Phone: P Jenks 40 degrees [employer] Phone: P-R Interval 198 ms [employer] Phone: Q-T Interval 396 ms [employer] Phone: QRS Duration 96 ms [employer] Phone: QTc Calculation (Bazett) 396 ms HENRI [employer] Phone: R Jenks 60 degrees [facility] [employer] Phone: T Jenks 17 degrees [facility]RI [employer] Phone: Ventricular Rate 60 BPM HENRI [employer] Work Phone: Normal sinus rhythm Minimal voltage criteria for LVH, may be normal variant ( Sokolow-Ashby ) Borderline ECG [facility] Brian Mckeon MD - 04/20/2022 Normal sinus rhythm Minimal voltage criteria for LVH, may be normal variant ( Sokolow-Ash[place] ) Borderline ECG [facility]ENRI [employer] Phone: [facility] [employer] Phone: POINT OF CARE GLUCOSEon -0 Glucose [Mass/Vol] 177 mg/dL Critically high 74-106 T [facility] Comment on above: Performed By: #### P OCGLUC #### [facility] [address] [place] [address] Dr. Spencer Zabala COVID-19on 05-09-2020 SARS-CoV-2, Rapid Not Detected Not Detected [place], [place] Comment on above: Rapid NAAT: The [...] management decisions. Fact sheet for Healthcare Providers: https://www.fda.gov/media/872554/download Fact sheet for Patients: [email or web address] [place].gov/media/[email or web address]/download Methodology: Isothermal Nucleic Acid Amplification Source .THROAT [place], [place] Glucose, Whole Bloodon 05-09 Glucose [Mass/Vol] 83 mg/dL 65 - 99 mg/dL [place] Glucose [Mass/Vol] 99 mg/dL 65 - 99 mg/dL [place] Otheron 05-09-2020 SARS-CoV-2 [place], [place] Basic Metabolic Panelon 04-06 Anion gap [Moles/Vol] 9 mmol/L 9 - 17 mmol/L [place] Bun/Cre Ratio 20 [place] Calcium [Mass/Vol] 10.6 mg/dL High 8.6 - 10. 4 mg/dL [place] Chloride [Moles/Vol] 99 mmol/L 98 - 10 7 mmol/L [place] CO2 [Moles/Vol] 26 mmol/L 20 - 31 mmol/L [place] Creatinine [Mass/Vol] 1.26 mg/dL High 0.7 - 1.2 mg/dL [place] GFR >60 >60 mL/min [place] GFR Non- 56 mL/min Low >60 [place] GFR/1.73 sq M predicted among non-blacks MDRD (S/P/Bld) [Vol rate/Area] [place] Comment on above: Average GFR for 70 o r more years old: 75 mL/min/1.73sq m Chronic Kidney Disease: <60 mL/min/1.73sq m Kidney failure: <15 mL/min/1.73sq m eGFR calculated using average adult body mass. Additional eGFR calculator available at: http://www.Verious/multiple_crcl_2012.htm GFR/1.73 sq M predicted among non-blacks MDRD (S/P/Bld) [Vol rate/Area] NOT REPORTED [place] Glucose [Mass/Vol] 155 mg/dL High 70 - 99 mg/dL [place] Interpretation and review of laboratory results Abnormal [place] Potassium [Moles/Vol] 4.5 mmol/L 3.7 - 5.3 mmol/L [place] Sodium [Moles/Vol] 134 mmol/L Low 135 - 144 mmol/L [place] Urea nitrogen [Mass/Vol] 25 mg/dL High 8 - 23 mg/dL [place] CBC Auto Differentialon 04-06 Basophils (Bld) [#/Vol] 0.00 10*3/uL [place] Basophils/100 WBC (Bld) 0 % 0 - 2 % [place] Differential Type YES [place] Eosinophils (Bld) [#/Vol] 0.20 10*3/uL [place] Eosinophils/100 WBC (Bld) 3 % 0 - 5 % [place] Erythrocyte distribution width (RBC) [Ratio] 14.2 % 12.1 - 15.2 % [place] Hematocrit (Bld) [Volume fraction] 43.0 % 41 - 53 % [place] Hemoglobin (Bld) [Mass/Vol] 14.6 g/dL 13.5 - 17.5 g/dL [place] Lymphocytes (Bld) [#/Vol] 1.70 10*3/uL [place] Lymphocytes/100 WBC (Bld) 23 % 13 - 44 % [place] MCH (RBC) [Entitic mass] 30.9 pg 26 - 34 pg [place] MCHC (RBC) [Mass/Vol] 33.9 g/dL 31 - 37 g/dL [place] MCV (RBC) [Entitic vol] 91.1 fL 80 - 100 fL [place] Monocytes (Bld) [#/Vol] 0.70 10*3/uL [place] Monocytes/100 WBC (Bld) 9 % 5 - 9 % [place] Platelet mean volume (Bld) [Entitic vol] NOT REPORTED 6 - 12 fL [place] Platelets (Bld) [#/Vol] 237 10*3/uL [place] Platelets (Bld) [#/Vol] NOT REPORTED [place] RBC (Bld) [#/Vol] 4.73 10*6/uL 4.5 - 5.9 m/uL [place] RBC morphology finding Nom (Bld) NOT REPORTED [place] Segmented neutrophils/100 WBC (Bld) 65 % 39 - 75 % [place] Segs Absolute 4.90 [place] WBC (Bld) [#/Vol] NOT REPORTED per 100 WBC [place] WBC (Bld) [#/Vol] 7.6 10*3/uL [place] WBC Morphology NOT REPORTED [place] Otheron 05-02-2020 Immature granulocytes (Bld) [#/Vol] NOT REPORTED [place] XR CHEST (2 VW)on 05-02-2020 Likely mild symmetri c emphysematous overinflation. No acute changes. [place] EXAM: XR CHEST (2 VW ) HISTORY: Reason for exam:->Pre-op for rt shoulder scope. COMPARISON: None. TECHNIQUE: 2 views chest. FINDINGS: Likely mild emphysematous overinflation. Heart size normal. Lungs clear. [place], [facility] Incoming Radiant Results From [employer] - 05/02/2020 1:56 PM EST EXAM: XR CHEST (2 VW) HISTORY: Reason for exam:->Pre-op for rt shoulder scope. COMPARISON: None. TECHNIQUE: 2 views chest. FINDINGS: Likely mild emphysematous overinflation. Heart size normal. Lungs clear. IMPRESSION: Likely mild symmetric emphysematous overinflation. No acute changes. [place] MRI SHOULDER RIGHT WO CONTRA STon [...] clinical follow up to assess for stability. [place] CLINICAL HISTORY: Impingement syndrome of right [...] glenohumeral joint, with small inferior marginal osteophytes. [facility] [place], [place], M[facility] Incoming Radiant Results From [facility] - 04/24/2020 12:20 PM EST CLINICAL HISTORY: [...] clinical follow up to assess for stability. [place] XR SHOULDER RIGHT (MIN 2 VIE WS)on 02-23-2020 Moderate degenerativ e changes at the acromioclavicular joint with undersurface spurring measuring 7 mm, which could contribute to outlet impingement. [place] EXAM: XR SHOULDER RIGHT (MIN 2 VIEWS). HISTORY: M1.011. 74-year-old male, right shoulder pain, arthritis right shoulder region. COMPARISON: None. TECHNIQUE: 3 views right shoulder FINDINGS: Moderate osteoarthritic change acromioclavicular joint with undersurface spurring. Minimal degenerative narrowing at the glenohumeral joint. [place], [place] Incoming Radiant Results From [employer] - 02/23/2020 4:11 PM EST EXAM: XR [...] mm, which could contribute to outlet impingement. [facility], [place] Vital Signs Date Time Vital Sign Value Performing Clinician Facility 01-03-2025 [id number] Body height 175.3 cm Laya Rine DIRECTOR PRODUCT Work Phone: [facility] 01-03-2025 11:07-0400 Body mass index (BMI) [Ratio] 23.95 kg/m2 Laya Rine DIRECTOR PRODUCT Work Phone: [facility] 01-03-2025 11:07-0400 Body temperature 96.69 [degF] Laya Rine DIRECTOR PRODUCT Work Phone: [facility] 01-03-2025 11:07-0400 Body weight 73.57 kg Laya Rine DIRECTOR PRODUCT Work Phone: [facility] 01-03-2025 11:07-0400 Diastolic blood pressure 58 mm[Hg] Laya Rine DIRECTOR PRODUCT Work Phone: [facility] 01-03-2025 11:07-0400 Heart rate 59 /min Laya Rine DIRECTOR PRODUCT Work Phone: [facility] 01-03-2025 11:07-0400 Respiratory rate 18 /min Laya Rine DIRECTOR PRODUCT Work Phone: [facility] 01-03-2025 11:07-0400 SaO2% (BldA) [Mass fraction] 97 % Laya Rine DIRECTOR PRODUCT Work Phone: [facility] 01-03-2025 11:07-0400 Systolic blood pressure 118 mm[Hg] Laya Rine DIRECTOR PRODUCT Work Phone: [facility] 12-18-2024 10:43-0400 Body height 175.3 cm Bigg Bowens DO Work Phone: [facility] 12-18-2024 10:43-0400 Body mass index (BMI) [Ratio] 24.22 kg/m2 Bigg Bowens DO Work Phone: [facility] 12-18-2024 10:43-0400 Body weight 74.39 kg Bigg Bowens DO Work Phone: [facility] 09-05-2024 11:02-0400 Body height 175.3 cm Laya Rine DIRECTOR PRODUCT Work Phone: [facility] 09-05-2024 11:02-0400 Body mass index (BMI) [Ratio] 24.25 kg/m2 Laya Rine DIRECTOR PRODUCT Work Phone: [facility] 09-05-2024 11:02-0400 Body temperature 97.59 [degF] Laya Rine DIRECTOR PRODUCT Work Phone: [facility] 09-05-2024 11:02-0400 Body weight 74.48 kg Laya Rine DIRECTOR PRODUCT Work Phone: [facility] 09-05-2024 11:02-0400 Diastolic blood pressure 70 mm[Hg] Laya Rine DIRECTOR PRODUCT Work Phone: [facility] 09-05-2024 11:02-0400 Heart rate 76 /min Laya Rine DIRECTOR PRODUCT Work Phone: [facility] 09-05-2024 11:02-0400 Respiratory rate 18 /min Laya Rine DIRECTOR PRODUCT Work Phone: [facility] 09-05-2024 11:02-0400 SaO2% (BldA) [Mass fraction] 97 % Laya Rine DIRECTOR PRODUCT Work Phone: [facility] 09-05-2024 11:02-0400 Systolic blood pressure 150 mm[Hg] Laya Rine DIRECTOR PRODUCT Work Phone: [facility] 05-11-2024 14:53-0500 Body height 175.3 cm Bigg Bowens DO Work Phone: [facility] 05-11-2024 14:53-0500 Body mass index (BMI) [Ratio] 24.51 kg/m2 Bigg Bowens DO Work Phone: [facility] 05-11-2024 14:53-0500 Body temperature 97.5 [degF] Bigg Bowens DO Work Phone: [facility] 05-11-2024 14:53-0500 Body weight 75.3 kg Bigg Bowens DO Work Phone: [facility] 05-08-2024 11:11-0500 Body height 175.3 cm Laya Rine DIRECTOR PRODUCT Work Phone: [facility] 05-08-2024 11:11-0500 Body mass index (BMI) [Ratio] 24.6 kg/m2 Laya Rine DIRECTOR PRODUCT Work Phone: [facility] 05-08-2024 11:11-0500 Body temperature 98.8 [degF] Laya Rine DIRECTOR PRODUCT Work Phone: [facility] 05-08-2024 11:11-0500 Body weight 75.57 kg Laya Rine DIRECTOR PRODUCT Work Phone: [facility] 05-08-2024 11:11-0500 Diastolic blood pressure 50 mm[Hg] Laya Rine DIRECTOR PRODUCT Work Phone: [facility] 05-08-2024 11:11-0500 Heart rate 65 /min Laya Rine DIRECTOR PRODUCT Work Phone: [facility] 05-08-2024 11:11-0500 Respiratory rate 18 /min Laya Rine DIRECTOR PRODUCT Work Phone: [facility] 05-08-2024 11:11-0500 SaO2% (BldA) [Mass fraction] 94 % Laya Rine DIRECTOR PRODUCT Work Phone: [facility] 05-08-2024 11:11-0500 Systolic blood pressure 120 mm[Hg] Laya Rine DIRECTOR PRODUCT Work Phone: [facility] 04-24-2024 10:19-0500 Body height 175.3 cm Pretty Pocos DO Work Phone: [facility] 04-24-2024 10:19-0500 Body mass index (BMI) [Ratio] 24.96 kg/m2 Pretty Pocos DO Work Phone: [facility] 04-24-2024 10:19-0500 Body weight 76.66 kg Pretty Moreland DO Work Phone: [facility] 01-17-2024 10:30-0400 Body height 175.3 cm Laya Rine DIRECTOR PRODUCT Work Phone: [facility] 01-17-2024 10:30-0400 Body mass index (BMI) [Ratio] 25.08 kg/m2 Laya Rine DIRECTOR PRODUCT Work Phone: [facility] 01-17-2024 10:30-0400 Body temperature 97.81 [degF] Laya Rine DIRECTOR PRODUCT Work Phone: [facility] 01-17-2024 10:30-0400 Body weight 77.02 kg Laya Rine DIRECTOR PRODUCT Work Phone: [facility] 01-17-2024 10:30-0400 Diastolic blood pressure 78 mm[Hg] Laya Rine DIRECTOR PRODUCT Work Phone: [facility] 01-17-2024 10:30-0400 Heart rate 70 /min Laya Rine DIRECTOR PRODUCT Work Phone: [facility] 01-17-2024 10:30-0400 Respiratory rate 18 /min Laya Rine DIRECTOR PRODUCT Work Phone: [facility] 01-17-2024 10:30-0400 SaO2% (BldA) [Mass fraction] 96 % Laya Rine DIRECTOR PRODUCT Work Phone: [facility] 01-17-2024 10:30-0400 Systolic blood pressure 138 mm[Hg] Laya Rine DIRECTOR PRODUCT Work Phone: [facility] 05-09-2020 15:35-0500 BP Diastolic 58 mm[Hg] Pretty [facility] , [place] 05-09-2020 15:35-0500 BP Systolic 113 mm[Hg] Pretty [facility] , [place] 05-09-2020 15:35-0500 Pulse (Heart Rate) 60 /min Pretty [facility], [place] 05-09-2020 15:35-0500 Pulse Oximetry 96 % Pretty Moreland [facility] , [place] 05-09-2020 15:35-0500 Respiratory Rate 18 /min Pretty Blanco [facility], [place] 05-09-2020 15:05-0500 Body Temperature 96.49 [degF] Pretty Blanco [facility], [place] 05-09-2020 10:31-0500 BMI (Body Mass Index) 26.09 kg/m2 Pretty Moreland [facility], [place] 05-09-2020 10:31-0500 Body weight 76.7 kg Pretty Moreland [facility] , [place] 05-09-2020 10:31-0500 Height 171.5 cm [facility] [place] Encounters Encounter Date Encounter Type Care Provider Facility Start: 01-05-2025 End: 01-05-2025 Refill Laya Mosquedae DIRECTOR PRODUCT Work Phone: [facility] Comment on above: Type 2 diabetes carmen itus with complication (HCC) (Primary Dx) Type 2 diabetes carmen itus with complication (HCC) Start: 01-03-2025 End: 01-03-2025 Bamboo flowsheet Laya L Rine DIRECTOR PRODUCT Work Phone: [facility] Start: 01-03-2025 End: 01-03-2025 Bamboo flowsheet Laya L Rine DIRECTOR PRODUCT Work Phone: [facility] Start: 01-03-2025 End: 01-03-2025 Office outpatient visit 25 minutes Laya L Vitae DIRECTOR PRODUCT Work Phone: [facility] Comment on above: Chronic left shoulde r pain (Primary Dx); Mixed hyperlipidemia; Type 2 diabetes mellitus with complication (HCC); Stage 3a chronic kidney disease ([facility]-HCC); Primary hypertension Start: 01-03-2025 End: 01-03-2025 ambulatory LAYA L RINE Not Available Start: 12-18-2024 End: 12-18-2024 Bamboo flowsheet Bigg Bowens DO Work Phone: [facility] Start: 12-18-2024 End: 12-18-2024 Bamboo flowsheet Bigg Tierney Gogo DO [facility] Start: 12-18-2024 End: 12-18-2024 Patient encounter procedure Bigg Tierney Gogo DO Work Phone: [facility] Comment on above: Left shoulder pain, unspecified chronicity Environmental and se asonal allergies; Primary hypertension Start: 12-18-2024 End: 12-18-2024 ambulatory BIGG BOWENS Not Available Start: 12-05-2024 End: 12-05-2024 Telephone encounter Laya Plata DIRECTOR PRODUCT Work Phone: [facility] Comment on above: refill Omeprazole Start: 09-19-2024 End: 09-19-2024 Refill Oneidasa Bert JOSE [facility] Comment on above: Type 2 diabetes carmen itus with complication (HCC) Start: 09-05-2024 End: 09-05-2024 Bamboo flowsheet Laya L Vitae DIRECTOR PRODUCT Work Phone: [facility] Start: 09-05-2024 End: 09-05-2024 Bamboo flowsheet Laya L Rine DIRECTOR PRODUCT Work Phone: [facility] Start: 09-05-2024 End: 09-05-2024 Office outpatient visit 25 minutes Laya L Vitae DIRECTOR PRODUCT Work Phone: [facility] Comment on above: Type 2 diabetes carmen itus with complication (CMS/HCC) (Primary Dx); Primary hypertension (CMS/HCC); Stage 3a chronic kidney disease (HCC) (CMS/HCC); CPAP (continuous positive airway pressure) dependence; White coat syndrome with diagnosis of hypertension (CMS/HCC) Start: 09-05-2024 End: 09-05-2024 ambulatory LAYA L VITAE Not Available Start: 08-30-2024 End: 08-30-2024 Refill Oneida Bert JOSE [facility] Comment on above: Environmental and se asonal allergies Start: 08-14-2024 End: 08-14-2024 Bamboo flowsheet Bigg Tierney Gogo DO Work Phone: [facility] Start: 08-14-2024 End: 08-14-2024 Bamboo flowsheet Bigg Bowens DO Work Phone: [facility] Start: 08-14-2024 End: 08-14-2024 Patient encounter procedure Bigg Bowens DO Work Phone: [facility] Comment on above: Left shoulder pain, unspecified chronicity (Primary Dx) Start: 08-14-2024 End: 08-14-2024 ambulatory BIGG A GOGO Not Available Start: 07-10-2024 End: 07-10-2024 Refill Josefina Uriarte RN [facility] Comment on above: Primary hypertension ([facility]) Start: 06-05-2024 End: 06-05-2024 Telephone encounter Laya Plata DIRECTOR PRODUCT Work Phone: [facility] Comment on above: medication refill Start: 05-26-2024 End: 05-26-2024 Telephone encounter Laya Plata DIRECTOR PRODUCT Work Phone: [facility] Start: 05-21-2024 End: 05-21-2024 Refill Laya L Jay DIRECTOR PRODUCT Work Phone: [facility] Comment on above: Type 2 diabetes carmen itus with other specified complication, unspecified whether prison insulin use ([facility]) Start: 05-11-2024 End: 05-11-2024 Patient encounter procedure Bigg Bowens DO Work Phone: [facility] Comment on above: Left shoulder pain, unspecified chronicity (Primary Dx) Start: 05-11-2024 End: 05-11-2024 ambulatory BIGG BOWENS Not Available Start: 05-11-2024 End: 05-11-2024 Bamboo flowsheet Bigg Kelsy Gogo DO Work Phone: [facility] Start: 05-11-2024 End: 05-11-2024 Bamboo flowsheet Bigg Kelsy Gogo DO Work Phone: [facility] Start: 05-08-2024 End: 05-08-2024 Bamboo flowsheet Laya L Vitae DIRECTOR PRODUCT Work Phone: [facility] Start: 05-08-2024 End: 05-08-2024 Bamboo flowsheet Laya Plata DIRECTOR PRODUCT Work Phone: [facility] Start: 05-08-2024 End: 05-08-2024 Patient encounter procedure Laya Plata DIRECTOR PRODUCT Work Phone: [facility] Comment on above: Medicare annual [facility] visit, initial (Primary Dx); Stage 3a chronic kidney disease (HCC) (CMS/HCC); Primary hypertension (CMS/HCC); Mixed hyperlipidemia (CMS/HCC); Type 2 diabetes mellitus with complication (CMS/HCC); Obstructive sleep apnea syndrome; Chronic GERD; Lumbar spondylosis; Degeneration of intervertebral disc of lumbar region, unspecified whether pain present; Arthritis, multiple joint involvement; Environmental and seasonal allergies; Vitamin D deficiency; CPAP (continuous positive airway pressure) dependence Start: 05-08-2024 End: 05-08-2024 ambulatory LAYA PLATA Not Available Start: 05-01-2024 End: 05-01-2024 Orders Only Laya Plata DIRECTOR PRODUCT Work Phone: [facility] Comment on above: Elevated glucose (Pr imary Dx); Essential hypertension (CMS/HCC); Elevated cholesterol (CMS/HCC); Type 2 diabetes mellitus with complication (CMS/HCC); Mixed hyperlipidemia (CMS/HCC) Start: 04-26-2024 End: 04-26-2024 Refill Laya Plata DIRECTOR PRODUCT Work Phone: [facility] Comment on above: Type 2 diabetes carmen itus with other specified complication, unspecified whether prison insulin use (CMS/HCC) Start: 04-24-2024 End: 04-24-2024 Patient encounter procedure Pretty Moreland DO Work Phone: [facility] Comment on above: Left shoulder pain, unspecified chronicity (Primary Dx); Arthritis of left shoulder region; Superior glenoid labrum lesion of left shoulder, initial encounter; Impingement syndrome of left shoulder Start: 04-24-2024 End: 04-24-2024 ambulatory PRETTY MORELAND Not Available Start: 04-24-2024 End: 04-24-2024 ambulatory PRETTY MORELAND Not Available Start: 04-14-2024 End: 04-14-2024 Bamboo flowsheet Nicolbritney Hayesans PA Work Phone: [facility] Start: 04-14-2024 End: 04-14-2024 Bamboo flowsheet Nicol Salgado PA Work Phone: [facility] Start: 04-14-2024 End: 04-14-2024 Telephone encounter Laya Mosquedae DIRECTOR PRODUCT Work Phone: [facility] Comment on above: FYI on left shoulder Start: 04-14-2024 End: 04-14-2024 Office outpatient visit 15 minutes Nicol Salgado PA Work Phone: [facility] Comment on above: Melanocytic nevus of trunk (Primary Dx); History of basal cell carcinoma; Seborrheic keratosis; Actinic keratosis; Lichen simplex chronicus Start: 04-14-2024 End: 04-14-2024 ambulatory NICOL Jermain SALGADO Not Available Start: 01-17-2024 End: 01-17-2024 Bamboo flowsheet Laya L Rine DIRECTOR PRODUCT Work Phone: [facility] Start: 01-17-2024 End: 01-17-2024 Bamboo flowsheet Laya L Rine DIRECTOR PRODUCT Work Phone: [facility] Start: 01-17-2024 End: 01-17-2024 Office outpatient visit 25 minutes Laya L Rine DIRECTOR PRODUCT Work Phone: [facility] Comment on above: Type 2 diabetes carmen itus with complication (CMS/HCC) (Primary Dx); Stage 3a chronic kidney disease (HCC) (CMS/HCC); Type 2 diabetes mellitus with hyperglycemia (CMS/HCC); Mixed hyperlipidemia (CMS/HCC) Start: 01-17-2024 End: 01-17-2024 ambulatory LAYA L RINE Not Available Start: 01-16-2024 End: 01-17-2024 Refill Laya L Rine DIRECTOR PRODUCT Work Phone: [facility] Comment on above: Primary hypertension (CMS/HCC) Start: 01-10-2024 End: 01-10-2024 Bamboo flowsheet Nicol Salgado PA Work Phone: [facility] Start: 01-10-2024 End: 01-10-2024 Bamboo flowsheet Nicol Salgado PA Work Phone: [facility] Start: 01-10-2024 End: 01-10-2024 Telephone encounter Laya Plata DIRECTOR PRODUCT Work Phone: [facility] Comment on above: refill atorvastatin Start: 01-10-2024 End: 01-10-2024 Patient encounter procedure Nicol Salgado PA Work Phone: [facility] Comment on above: Actinic keratosis (P rimary Dx) Start: 01-10-2024 End: 01-10-2024 ambulatory NICOL SALGADO Not Available Start: 12-13-2023 End: 12-13-2023 Telephone encounter Laya Plata DIRECTOR PRODUCT Work Phone: [facility] Comment on above: refills Start: 12-09-2023 End: 12-09-2023 Telephone encounter Laya Plata DIRECTOR PRODUCT Work Phone: [facility] Comment on above: Med Refill Start: 11-30-2023 End: 11-30-2023 Bamboo flowsheet Nicol Salgado PA Work Phone: [facility] Start: 11-30-2023 End: 11-30-2023 Bamboo flowsheet Nicol Salgado PA Work Phone: [facility] Start: 11-30-2023 End: 11-30-2023 Office outpatient visit 10 minutes Nicol Salgado PA Work Phone: [facility] Comment on above: Segudno angioma (Prim sonya Dx); Actinic keratosis Start: 11-24-2023 End: 11-24-2023 Refill Laya Plata DIRECTOR PRODUCT Work Phone: [facility] Comment on above: Primary hypertension (CMS/HCC) Start: 06-15-2023 End: 06-18-2023 [facility] Start: 03-01-2023 End: 03-04-2023 ambulatory [facility] Hoffman [facility] Start: 02-01-2023 End: 02-02-2023 ambulatory Ponce Fuentes MD Facility:[facility] Start: 04-23-2022 End: 04-24-[address] DOCTOR ARNOLD Facility:[facility] Start: 04-20-2022 End: 04-20-2022 Patient encounter status Daniel Bhandari Phone: [facility] Start: 04-20-2022 End: [...] hospital visit by physician Daniel Bhandari Phone: [facility] Start: 07-15-2020 End: 07-15-2020 Subsequent hospital [...] 06-12-2020 Subsequent hospital visit by physician Nathalie ARROYOHZ [...] 05-09-2020 Subsequent hospital visit by physician Pretty Moreland Work Phone: [facility] Comment on above: [...] End: 04-26-2020 Subsequent [facility] Comment on above: Impingement syndrome of right shoulder Start: 04-17-2020 End: 04-17-2020 Subsequent hospital visit by physician Rosalino Singh [facility] Physical Therapy Comment on above: Arrived Start: 04-15-2020 End: 04-15-2020 Subsequent hospital visit by physician Danay Can [facility] Physical Therapy Comment on above: Arrived Start: 04-11-2020 End: 04-11-2020 Subsequent hospital visit by physician Danay Can [facility] Physical Therapy Comment on above: Arrived Start: 04-09-2020 End: 04-09-2020 Subsequent hospital visit by physician Rosalino Singh [facility] Physical Therapy Comment on above: Arrived Start: 04-03-2020 End: 04-03-2020 Subsequent hospital visit by physician Rosalino Singh [facility] Physical Therapy Comment on above: Arrived Start: 04-01-2020 End: 04-01-2020 Subsequent hospital visit by physician Rosalino Singh [facility] Physical Therapy Comment on above: Arrived Start: 03-27-2020 End: 03-27-2020 Subsequent hospital visit by physician Jessica Albarado Work Phone: [facility] Physical Therapy Comment on above: Arrived Start: 03-26-2020 End: 03-26-2020 Subsequent hospital visit by physician Danay Can [facility] Physical Therapy Comment on above: Arrived Start: 03-21-2020 End: 03-21-2020 Subsequent hospital visit by physician Rosalino Singh [facility] Physical Therapy Comment on above: Arrived Start: 03-19-2020 End: 03-19-2020 Subsequent hospital visit by physician Danay Can [facility] Physical Therapy Comment on above: Arrived Start: 02-23-2020 End: 02-25-2020 Subsequent hospital visit by physician Anderson Additional Xray At [facility] Radiology Comment on above: Arthritis of right s [place] region Start: 12-20-2018 End: 12-22-2018 [facility] Procedures Date Procedure Procedure Detail Performing Clinician Start: 12-18-2024 End: 12-18-2024 Arthrocentesis aspir&/inj major jt/bursa w/us Bigg Bowens DO Work Phone: Start: 05-11-2024 End: 05-11-2024 Arthrocentesis aspir&/inj major jt/bursa w/us Bigg Bowens DO Work Phone: Start: 05-11-2024 Radex shoulder compl ete minimum 2 views Bigg Bowens DO Work Phone: Start: 04-24-2024 Radex shoulder compl ete minimum 2 views Pretty Moreland DO Work Phone: Start: 04-14-2024 CRYOTHERAPY SKIN LESION Nicol TURPIN Work Phone: Start: 01-10-2024 CRYOTHERAPY SKIN LESION Nicol TURPIN Work Phone: Start: 11-30-2023 CRYOTHERAPY SKIN LESION Nicol TURPIN Work Phone: Start: 04-20-2022 Ecg routine ecg w/le ast 12 lds w/i&r Brian Mckeon MD Work Phone: Start: 05-09-2020 Gluc bld gluc mntr d ev cleared fda spec home use Pretty Lopez Pocos Work Phone: Start: 05-09-2020 Gluc bld gluc mntr d ev cleared fda spec home use Pretty Lopez Pocos Work Phone: Start: 05-09-2020 COVID-19 Pete Jau regui Work Phone: Start: 05-02-2020 Radiologic exam ches t 2 views Pretty Floresos Work Phone: Start: 05-02-2020 Basic metabolic pane l calcium total Pretty Floresos Work Phone: Start: 05-02-2020 Blood count complete auto&auto difrntl wbc Pretty Moreland Work Phone: Start: 04-24-2020 Mri any jt upper ext remity w/o contrast matrl Pretty Floresos Work Phone: Start: 02-23-2020 Radex shoulder compl ete minimum 2 views Daniel Pop Work Phone: Plan of Treatment Date Care Activity Detail Author Start: 06-28-2026 Glaucoma screening Diabetes: Retinopathy Screening [facility] Start: 10-02-2025 Influenza vaccination Influenza Vaccine (#1) [facility] Comment on above: Postponed from 12/04/2024 (Patient Refus ed) Start: 05-08-2025 Medicare Annual Wellness (AWV) Medicare Annual Wellness (AWV ) [facility] Start: 04-20-2025 End: 04-20-2025 Patient encounter procedure [facility] Start: 03-27-2025 Hemoglobin A1c measurement Diabetes: Hemoglobin A1C [facility] Start: 02-26-2025 End: 02-26-2025 Patient encounter procedure 02/26/2025 10:30 AM EST Of fice Visit [facility] [address] [place] [id number] Laya Plata, MERCEDES [address] [place] [address] [facility] Start: 01-11-2025 Urine screening for protein Diabetes: Urine Protein Screening [facility] Start: 01-03-2025 End: 01-03-2026 Alanine aminotransferase [Enzymatic activity/volume] in Serum or Plasma ALT Lab Routine Mixed hyperlipidemia Expected: 01/03/2025 (Approximate), Expires: 01/03/2026 [facility] Work Phone: Comment on above: Expected: 01/03/2025 (Approximate), Expi res: 01/03/2026 Start: 01-03-2025 End: 01-03-2026 Aspartate aminotransferase [Enzymatic activity/volume] in Serum or Plasma AST Lab Routine Mixed hyperlipidemia Expected: 01/03/2025 (Approximate), Expires: 01/03/2026 [facility] Comment on above: Expected: 01/03/2025 (Approximate), Expi res: 01/03/2026 Start: 01-03-2025 End: 01-03-2026 Hemoglobin A1c/Hemoglobin.total in Blood Hemoglobin A1c Lab Routine Type 2 diabetes mellitus with complication (HCC) Expected: 01/03/2025 (Approximate), Expires: 01/03/2026 [facility] Comment on above: Expected: 01/03/2025 (Approximate), Expi res: 01/03/2026 Start: 01-03-2025 End: 01-03-2026 Lipid 1996 panel - Serum or Plasma Lipid panel Lab Routine Mixed hyperlipidemia Expected: 01/03/2025 (Approximate), Expires: 01/03/2026 [facility] Comment on above: Expected: 01/03/2025 (Approximate), Expi res: 01/03/2026 Start: 01-03-2025 End: 01-03-2025 Patient encounter procedure [facility] Comment on above: Arrived Start: 12-18-2024 End: 12-18-2024 Patient encounter procedure [facility] Comment on above: Arrived Start: 12-06-2024 End: 09-05-2025 Hemoglobin A1c/Hemoglobin.total in Blood Hemoglobin A1c Lab Today Type 2 diabetes mellitus with complication (CMS/HCC) Expected: 12/06/2024 (Approximate), Expires: 09/05/2025 [facility] Work Phone: Comment on above: Expected: 12/06/2024 (Approximate), Expi res: 09/05/2025 Start: 12-04-2024 Influenza vaccination [facility] Start: 12-02-2024 Hemoglobin A1c measurement Diabetes: Hemoglobin A1C [facility] Start: 10-02-2024 Influenza vaccination Influenza Vaccine (#1) [facility] Comment on above: Postponed from 12/05/2023 (Patient Refus ed) Start: 09-05-2024 End: 09-05-2024 Patient encounter procedure [facility] Comment on above: Arrived Start: 08-15-2024 End: 08-15-2024 Patient encounter procedure 08/15/2024 10:30 AM EDT Of fice Visit [facility] [address] [place] [phone] Bigg Bowens DO [address] [place] [address] [facility] Start: 08-14-2024 End: 08-14-2024 Patient encounter procedure [facility] Comment on above: Arrived Start: 08-07-2024 End: 05-08-2025 Hemoglobin A1c/Hemoglobin.total in Blood Hemoglobin A1c Lab Today Type 2 diabetes mellitus with complication (CMS/HCC) Expected: 08/07/2024 (Approximate), Expires: 05/08/2025 [facility] Work Phone: Comment on above: Expected: 08/07/2024 (Approximate), Expi res: 05/08/2025 Start: 08-04-2024 Hemoglobin A1c measurement Diabetes: Hemoglobin A1C [facility] Start: 05-11-2024 End: 05-11-2024 Patient encounter procedure [facility] Comment on above: Arrived Start: 05-08-2024 End: 05-08-2024 Patient encounter procedure [facility] Comment on above: Medicare annual wellness visit, initial (Primary Dx); Stage 3a chronic kidney disease (HCC) (CMS/HCC); Primary hypertension (CMS/HCC); Mixed hyperlipidemia (CMS/HCC); Type 2 diabetes mellitus with complication (CMS/HCC); Obstructive sleep apnea syndrome; Chronic GERD; Lumbar spondylosis; Degeneration of intervertebral disc of lumbar region, unspecified whether pain present; Arthritis, multiple joint involvement; Environmental and seasonal allergies; Vitamin D deficiency; CPAP (continuous positive airway pressure) dependence Start: 05-01-2024 End: 05-01-2025 Comprehensive metabolic 2000 panel - Serum or Plasma Comprehensive metabolic panel Lab Routine Essential hypertension (CMS/HCC) Expected: 05/01/2024, Expires: 05/01/2025 [facility] Comment on above: Expected: 05/01/2024, Expires: Start: 05-01-2024 End: 05-01-2025 Hemoglobin a1c with eag Hemoglobin a1c with eag Lab Routine Type 2 diabetes mellitus with complication (CMS/HCC) Expected: 05/01/2024 (Approximate), Expires: 05/01/2025 [facility] Work Phone: Comment on above: Expected: 05/01/2024 (Approximate), Expi res: 05/01/2025 Start: 05-01-2024 End: 05-01-2025 Lipid 1996 panel - Serum or Plasma Lipid panel Lab Routine Mixed hyperlipidemia ([facility]) Expected: 05/01/2024 (Approximate), Expires: 05/01/2025 [facility] Comment on above: Expected: 05/01/2024 (Approximate), Expi res: 05/01/2025 Start: 04-24-2024 End: 04-24-2024 Patient encounter procedure 04/24/2024 10:30 AM EST Of fice Visit [facility] [address] [place] [phone] Pretty Moreland DO [address] [place] [address] [facility] Start: 04-14-2024 End: 04-14-2024 Patient encounter procedure [facility] Comment on above: Arrived Start: 04-13-2024 Hemoglobin A1c measurement Diabetes: Hemoglobin A1C [facility] Start: 03-13-2024 Influenza vaccination Influenza Vaccine (#1) [facility] Comment on above: Postponed from 12/05/2023 (Patient Refus ed) Start: 01-17-2024 End: 01-17-2024 Patient encounter procedure [facility] Comment on above: Type 2 diabetes mellitus with complicati on ([facility]) (Primary Dx); Stage 3a chronic kidney disease (HCC) ([facility]) Start: 01-10-2024 End: 01-10-2024 Patient encounter procedure [facility] LINDSAY Comment on above: Arrived Start: 12-16-2023 Hemoglobin A1c measurement Diabetes: Hemoglobin A1C [facility] Start: 12-11-2023 Glaucoma screening Diabetes: Retinopathy Screening [facility] Start: 12-05-2023 Influenza vaccination Influenza Vaccine (#1) [facility] Start: 11-30-2023 End: 11-30-2023 Patient encounter procedure SUSAN LINDSAY Comment on above: Arrived Start: 08-12-2022 Urine screening for protein Diabetes: Urine Protein Screening [facility] Start: 05-04-2022 End: 05-04-2022 Admission to same day surgery center 05/04/2022 Surgery IP Unit Brian Mckeon MD [address] [place] [address] COLONOSCOPY [facility] Comment on above: COLONOSCOPY [...] Hospital Encounter IP Unit Brian Mckeon MD [address] [place] [address] [facility] Start: 05-02-2021 Creatinine measurement Creatinine monitoring [place] Start: 05-02-2021 Potassium monitoring Potassium monitoring [place] Start: 08-13-2020 COVID-19 Vaccine (2 - Booster for Hermila series) COVID-19 Vaccine (2 - Booster for Hermila series) [facility] Start: 07-11-2020 End: 07-11-2020 Appointment [facility] Start: 07-08-2020 End: 07-08-2020 Appointment 07/08/2020 Appointment Physical Therapy Nathalie Burnham [facility] Start: 07-05-2020 End: 07-05-2020 Appointment 07/05/2020 Appointment Physical Therapy Nathalie Burnham [facility] Start: 07-03-2020 End: 07-03-2020 Appointment 07/03/2020 Appointment Physical Therapy Quynh Worthington, PT [facility] Start: 07-01-2020 End: 07-01-2020 Appointment 07/01/2020 Appointment Physical Therapy Alisia Sapp [facility] Start: 06-28-2020 End: 06-28-2020 Appointment 06/28/2020 Appointment Physical Therapy Quynh Worthington, PT [facility] Start: 06-26-2020 End: 06-26-2020 Appointment 06/26/2020 Appointment Physical Therapy Nathalie [facility] Start: 06-24-2020 End: 06-24-2020 Appointment 06/24/2020 Appointment Physical [facility] Start: 06-24-2020 End: 06-24-2020 Appointment 06/24/2020 Appointment Physical Nathalie [facility] Start: 06-21-2020 End: 06-21-2020 Appointment [facility] Start: 06-19-2020 End: 06-19-2020 Appointment 06/19/2020 Appointment Physical Therapy Quynh Worthington PT [facility] Start: 06-17-2020 End: 06-17-2020 Appointment 06/17/2020 Appointment Physical [facility] Start: 06-14-2020 End: 06-14-2020 Appointment 06/14/2020 Appointment Physical N[facility]ie [facility] Start: 06-12-2020 End: 06-12-2020 Appointment 06/12/2020 Appointment Physical N[facility]ie [facility] Start: 06-10-2020 End: 06-10-2020 Appointment 06/10/2020 Appointment Physical Nathalie [facility] Start: 06-07-2020 End: 06-07-2020 Appointment 06/07/2020 Appointment Physical Therapy Quynh Worthington PT [facility] Start: 06-05-2020 End: 06-05-2020 Appointment 06/05/2020 Appointment Physical Therapy Quynh Worthington PT [facility] Start: 06-03-2020 Hospital Encounter 06/03/2020 [facility] Marcos villatoro Physical [facility] Start: 05-31-2020 Hospital Encounter 05/31/2020 [facility] Marcos villatoro Physical [facility] Start: 05-09-2020 End: 05-09-2020 Hospital Encounter [facility] Comment on above: RIGHT SHOULDER [...] Appointment Physical Therapy Jessica Albarado, PT [address] [place] [address] [phone] [facility] Start: 03-26-2020 End: 03-26-2020 Appointment 03/26/2020 Appointment Physical Therapy Danay Can, PT [facility] Start: 03-21-2020 End: 03-21-2020 Appointment 03/21/2020 Appointment Physical Therapy Rosalino Singh PTA [facility] Start: 12-01-2019 Colon cancer screen colonoscopy Colon cancer screen colonoscopy [place] Start: 12-04-2018 Influenza vaccination Flu vaccine (#1) [place] Start: 09-22-2018 Annual Wellness Visit (AWV) Annual Wellness Visit (AWV) [facility] Start: 03-02-2018 Pneumococcal 65+ years Vaccine (2 of 2 - PCV13) Pneumococcal 65+ years Vaccine (2 of 2 - PCV13) [place] Start: 06-22-1993 Shingles Vaccine (1 of 2) Shingles Vaccine (1 of 2) [facility]AO [facility]DA[facility] Start: 06-22-1962 DTaP/Tdap/Td vaccine (1 - Tdap) DTaP/Tdap/Td vaccine (1 - Tdap) [facility] Start: 06-22-1961 Hepatitis C screening Hepatitis C screen [facility] Start: 1959 COVID-19 Vaccine (1 of 2) COVID-19 Vaccine (1 of 2) [place], [place] Start: 1959 COVID-19 Vaccine (1) COVID-19 Vaccine (1) [facility] Work Phone: Start: 1955 Depression Screen Depression Screen [facility] Start: 06-22-1953 [object Object] Diabetic foot exam [place], [place] Start: 06-22-1953 A1C test (Diabetic or Prediabetic) A1C test (Diabetic or Prediabetic) [place] Start: 06-22-1953 Diabetic retinal exam Diabetic retinal exam [place] Start: 06-22-1953 Lipid panel [facility] Start: 06-22-1953 Lipid screen Lipid screen [place] Start: 1943 AAA screen AAA screen [place] Start: 1943 Creatinine measurement Creatinine monitoring [place] Start: 1943 Creatinine monitoring Creatinine monitoring [place] Start: 1943 Hepatitis C screening Hepatitis C screen [place], [place] Start: 1943 Potassium monitoring Potassium monitoring [place] Oxygen therapy [[facility]] Initiate Oxygen Therapy Protocol Respiratory Care Routine Daily until discontinued starting 05/09/2020 [place] Comment on above: Daily until discontinued starting 2020 End: 05-09-2020 POCT glucose POCT glucose Point of Care Testing Routine One Time for 1 Occurrences starting 05/09/2020 until 05/09/2020 [place] Comment on above: One Time for 1 Occurrences starting 07/2020 until 05/09/2020 XR Shoulder - left 2 Views XR sh oulder 2+ views left Imaging Routine Left shoulder pain, unspecified chronicity 04/24/2024 8:09 AM EST [facility] Work Phone: Immunizations Immunization Date Immunization Notes Care Provider Dara valencia 03-03-2022 Influenza, High-dose Seasonal, Quadrivalent, Preservative Free Laya Rine [employer] Work Phone: [facility] 03-03-2022 influenza virus vacc ine, unspecified formulation Laya Rine [employer] Work Phone: [facility] 01-01-2021 Influenza, High-dose Seasonal, Quadrivalent, Preservative Free Laya Rine [employer] Work Phone: [facility] 02-22-2020 influenza, injectabl e, quadrivalent, preservative free Laya Rine [employer] Work Phone: [facility] 04-25-2019 Seasonal trivalent influenza vaccine, adjuvanted, preservative free Laya Rine [employer] Work Phone: [facility] 03-02-2018 influenza, high dose seasonal, preservative-free Laya Rine [employer] Work Phone: [facility] 03-02-2017 pneumococcal polysaccharide vaccine, 23 valent Laya Rine [employer] Work Phone: [facility] 01-07-2017 influenza, high dose seasonal, preservative-free Laya Rine [employer] Work Phone: [facility] 01-03-2016 influenza, injectabl e, quadrivalent, contains preservative Laya Rine [employer] Work Phone: [facility] 03-11-2015 influenza, injectabl e, quadrivalent, preservative free Laya Rine [employer] Work Phone: [facility] 03-11-2015 pneumococcal conjuga te vaccine, 13 valent Laya Rine [employer] Work Phone: [facility] Payers Date Payer Category Payer Medicare MEDICARE MEDICAR E PART A AND B xxxxxxxxxx 2016-Present [phone] [place] [address] xxxxxxxxxx [id number] 2016 Private Health Insurance HUMANA HUMANA MEDICARE SUPP xxxxxxxxx 2016-Present [address] [address] [place] [address] xxxxxxxxx [id number] 2015 Private Health Insurance 2008 Medicare 1959 Medicare [id number] 1959 Private Health Insurance [id number] 1943 Unknown [id number] 2.16.840.1.846339.3.579.2 .593 1943 Unknown [id number] 2.16.840.1.022103.3.579.2 .593 1943 Unknown [id number] 2.16.840.1.917259.3.579.2 .593 1943 Unknown [id number] 2.16.840.1.786526.3.579.2 .593 1943 Unknown [id number] 2.16.840.1.347858.3.579.2 .593 1943 Unknown [id number] 2.16.840.1.337919.3.579.2 .196 1943 Unknown [id number] 2.16.840.1.713992.3.579.2 .174 1943 Unknown [id number] 2.16.840.1.646604.3.579.2 .174 1943 Unknown [id number] 2.16.840.1.872201.3.579.2 .174 1943 Unknown [id number] 2.16.840.1.447679.3.579.2 .174 1943 Unknown [id number] 2.16.840.1.341068.3.579.2 .1259 1943 Unknown [id number] 2.16.840.1.564867.3.579.2 .1259 1943 Unknown [id number] 2.16.840.1.543552.3.579.2 .125 1943 Unknown [id number] 2.16.840.1.954996.3.579.2 .1259 1943 Unknown [id number] 2.16.840.1.824040.3.579.2 .1258 1943 Unknown [id number] 2.16.840.1.205342.3.579.2 .1259 1943 Unknown [id number] 2.16.840.1.828060.3.579.2 .125 1943 Unknown [id number] 2.16.840.1.147895.3.579.2 .125 1943 Unknown [id number] 2.16.840.1.329017.3.579.2 .125 1943 Unknown [id number] 2.16.840.1.664375.3.579.2 .1259 1943 Unknown [id number] 2.16.840.1.067166.3.579.2 .125 1943 Unknown [id number] 2.16.840.1.255082.3.579.2 .1259 Social History Date Type Detail Facility Start: 12-15-2016 End: 09-17-2023 Tobacco smoking status OKIS Former smoker [place] Start: 02-06-1991 End: 11-30-2006 History of tobacco use Current smoker [place] Start: 02-06-1991 End: 11-30-2006 History of tobacco use Cigarette Smoker [place] End: 08-28-2007 History of tobacco use Pipe Smoker [place] Start: 12-15-2016 End: 04-20-2022 Tobacco use and exposure Former user [facility] [place] History of tobacco use Snuff User [place] History of tobacco use Chews Tobacco [place] Start: 12-15-2016 End: 01-03-2025 Alcohol intake Current drinker of alcohol (finding) [place] Start: 1945 Sex Assigned At Not on file [place] Exposure to SARS-CoV -2 (event) Not sure [place] Start: 12-15-2016 End: 09-04-2024 Alcohol intake Yes [facility] Start: 05-09-2020 End: 09-04-2024 Alcohol intake [facility] Start: 04-20-2022 History SDOH Financial 4 [employer] Work Phone: Start: 04-20-2022 History SDOH Food Worry 1 [employer] [facility] Work Phone: Start: 09-17-2023 Tobacco use and exposure Smoke less tobacco non-user [facility] Within the last year , have you been afraid of your partner or ex-partner? No [facility] Do you belong to any clubs or organizations such as caodaism groups, unions, fraternal or athletic groups, or [...] Not at all [facility] (I/We) worried whebarry er (my/our) food would run out before (I/we) got money to buy more. Never true [facility] Start: 08-28-2022 Tobacco Comment Last smoked: m ore than 10 years ago [facility] Start: 05-20-2023 Alcohol Comment I drink a beer once a week, Caffeine intake: 1-2 cups per day coffee [facility] Start: 05-11-2024 Alcohol Comment I drink a beer once a week [facility] How often to you hav e a drink containing alcohol? 2-4 times a month [facility] How hard is it for y ou to pay for the very basics like food, housing, medical care, and heating Not very hard [facility] Procedure Code Equipment Code Equipment Origin al Text Equipment Identifier Dates [place] [employer] [id number] Mm Tiana Wiggins [id number] Start: 05-09-2020 [id number] Start: 04-20-2023 End: 04-24-2024 Daily testing [id number] Start: 08-15-2024 Daily testing [id number] Start: 08-15-2024 Clinical Notes 07-16-2021 to 01-05-2025 Telephone Encounter - Laya Plata NP - 01/05/2025 9:41 AM EDTTelephone Encounter - Laya Plata NP - 01/05/2025 9:41 AM EDTTelephone Encounter - Laya Plata NP - 01/05/2025 6:50 AM EDT Note Date & Type Note Facility 01-05-2025 Telephone encount er Note Resent rx with the 5 units in the sig [facility] 01-05-2025 Miscellaneous Notes Formattin g of this note might be different from the original. Resent rx with the 5 units in the sig documented in this encounter [facility] 01-05-2025 Telephone encount er Note New insulin rx sent as insurance denied lispro rx [facility] 01-05-2025 Miscellaneous Notes Formattin g of this note might be different from the original. New insulin rx sent as insurance denied lispro rx documented in this encounter [facility] 01-03-2025 History of Presen t illness Narrative Images from the original note were not included. Tony Starks is a 79 y.o. male presents with chief complaint of Follow-up HPI: HPI ..The patient was advised that Artificial Intelligence will be utilized during this visit to record, process the conversation to generate a clinical note,. The patient consented to the use of AI, including the recording. History of Present Illness The patient is an 79-year-old male presenting with joint pain, diabetes mellitus, and hyperlipidemia. Joint Pain He reports joint pain possibly due to medication. Osteo Bi-Flex has provided some relief for morning finger stiffness and swelling but not for shoulder discomfort. He received steroid injections in his shoulder on 12/18/2024 and 3 months prior, administered by Dr. Bowens for bone spurs and a torn bursa. The injections provided temporary relief, with the most recent lasting 2 weeks. A nerve block procedure at [facility] is scheduled for 01/11/2025, with arthroscopy planned for 03/19/2025 if needed. Mild pain occurs when raising his arm, tolerable for short periods. He uses a cream for additional relief and prefers to delay further treatment until after his trip to [facility] at the end of the month. and swelling), shoulder (discomfort). Osteo Bi-Flex for finger stiffness and swelling, steroid injections, cream for additional relief. Diabetes Mellitus His A1c increased from 8% in 08/2024 to 9.1%, likely due to steroid injections. Blood sugar spiked to 250 the morning after the injection. He monitors his blood sugar, typically 80-90 in the mornings and around 150 post-lunch. This morning, it was 80. He plans to discontinue steroid injections due to their impact on blood sugar. He reports no chest pain or shortness of breath, except after sexual activity. He uses Tresiba insulin and insulin pens for travel convenience. Hyperlipidemia He is on atorvastatin and hydrochlorothiazide and requires refills. - Diet: Slightly reduced food intake. SUBJECTIVE: MEDICATIONS: Current Outpatient Medications Medication Instructions acetaminophen-codeine (Tylenol w/ Codeine #3) 300-30 MG tablet amoxicillin (AMOXIL) 500 mg Apple Cider Vinegar 600 MG capsule 1 tablet, Every 8 hours Ascorbic Acid (Vitamin C) 500 MG capsule Every 24 hours aspirin 81 MG EC tablet Every 24 hours atenolol (TENORMIN) 50 mg, Oral, Daily Bexagliflozin (BRENZAVVY) 20 mg, Oral, Daily cholecalciferol (Vitamin D-3) 50 MCG (1999 UT) tablet Every 24 hours famotidine (PEPCID) 20 mg, Oral, 2 times daily fluticasone (Flonase) 50 MCG/ACT nasal spray 1 spray, Each Nostril, Daily, Shake gently. Before first use, prime pump. After use, clean tip and replace cap. glucose blood test strip Daily testing hydroCHLOROthiazide (HYDRODIURIL) 25 mg, Oral, Daily Insulin Lispro 5 Units, Injection, Daily before evening meal Lancet Devices (Autolet) lancing device Daily testing lisinopril 20 mg, Oral, 2 times daily loratadine (CLARITIN) 10 mg, Oral, Daily Melatonin 3-10 MG tablet Misc Natural Products (OSTEO BI-FLEX ADV JOINT SHIELD PO) Take by mouth Multiple Vitamins-Minerals (Multivitamin Adults 50+) tablet Every 24 hours omeprazole (PRILOSEC) 20 mg, Oral, Every 24 hours rosuvastatin (CRESTOR) 10 mg, Oral, Daily SITagliptin (JANUVIA) 100 mg, Oral, Daily Tresiba FlexTouch 34 Units, Subcutaneous, 2 times daily zinc 30 MG tablet Every 24 hours ALLERGIES: No Known Allergies SURGICAL HISTORY: Past Surgical History: Procedure Laterality Date ANTERIOR CRUCIATE LIGAMENT REPAIR COLONOSCOPY 2010 EYE SURGERY KNEE SURGERY Arthroscopy knee MOHS SURGERY MS REPAIR OF NASAL SEPTUM nasal septoplasty to correct a deviated nasal septum ROTATOR CUFF REPAIR SHOULDER ARTHROSCOPY 05/09/2020 Rt shoulder scope, LHB debridement, RCR/SAD- DAP SKIN BIOPSY THROAT SURGERY x 2- per Dr Rowland TONSILLECTOMY VASECTOMY FAMILY HISTORY: Family History Problem Relation Name Age of Onset Diabetes Mother Terra Starks Hypertension Mother Ellison Raudel Heart disease Mother Terra Starks Other (Other) Father Yuval [...] Comment: I drink a beer once a week Drug use: Never Depression: Not at risk (05/08/2024) PHQ-2 PHQ-2 Score: 0 REVIEW OF SYMPTOMS: [...] Negative for polydipsia. OBJECTIVE: Visit Vitals BP 118/58 (BP Location: Left arm, Patient Position: Sitting, BP Cuff Size: Small adult) Pulse 59 Temp 96.7 F (Tympanic) Resp 18 Ht 5' 9 Wt 162 lb 3.2 oz SpO2 97% BMI 23.95 kg/m Smoking Status Former BSA 1.89 m Physical Exam Constitutional: Appearance: Normal appearance. HENT: Head: Normocephalic and atraumatic. Eyes: Pupils: Pupils are equal, round, and reactive to light. Cardiovascular: Rate and Rhythm: Normal rate and regular rhythm. Heart sounds: Normal heart sounds. Pulmonary: Effort: Pulmonary effort is normal. Comments: Lungs slightly diminished throughout Musculoskeletal: General: Normal range of motion. Skin: General: Skin is warm and dry. Neurological: General: No focal deficit present. Mental Status: He is alert. Psychiatric: Mood and Affect: Mood normal. Comments: Alert and interactive Wt down 2 pounds Rev home bs log Rev lab from 12-26-24 and 05-07-24 ASSESSMENT AND PLAN: Assessment/Plan Diagnoses and all orders for this visit: Chronic left shoulder pain Comments: appt for nerv block in [facility] , sent by dr bowens , has arthroscopy on books for 03-19-25 Mixed hyperlipidemia Comments: rev the last lipid panel from may,ldl 49, ? atorastatin causing myalgia, consider trial low dose crestorm call if issues Orders: - rosuvastatin (Crestor) 10 MG tablet; Take 1 tablet (10 mg) by mouth Daily - ALT; Future - AST; Future - Lipid panel; Future Type 2 diabetes mellitus with complication (HCC) Comments: 8% to 9.1% ,he has had two steroid injecitons into the shoulder this summer, likely culprit Orders: - Bexagliflozin (Brenzavvy) 20 MG tablet; Take 20 mg by mouth Daily - Hemoglobin A1c; Future - Insulin Lispro 100 UNIT/ML solution; Inject 5 Units as directed in the evening. Take before meals Stage 3a chronic kidney disease ([facility]-H[facility]) Comments: cr 1.53, gfr 46 on 05-07-24 , encouraged to work on hydration Primary hypertension Comments: good contol, remain active Orders: - hydroCHLOROthiazide (HYDRODiuril) 25 MG tablet; Take 1 tablet (25 mg) by mouth Daily ..I have reviewed and reconciled the history, allergies, family history, social history, and the medication list with the patient today. Follow up for late feb /early mar after labs . documented in this encounter [facility] 01-03-2025 Instructions Laya Plata NP - 01/03/2025 11:00 AM EDT Drink 8 0z of water after each meal and stay on feet for 30 min after each meal Fiber first with each meal Check blood sugar occasionally 2 hours after a meal We will recheck aic again late feb Change the cholesterol medication to resuvastatin 10mg daily stop the atorvastatin Add in lispro insulin 5 units prior meals, 2 hour after meal blood sugar will tell you how well this work documented in this encounter [facility] 12-18-2024 Telephone encount er Note PT requesting refill on lisinopril and fluticasone, please send to Steve. [facility] 12-18-2024 Miscellaneous Notes Formattin g of this note might be different from the original. PT requesting refill on lisinopril and fluticasone, please send to documented in this encounter [facility] 12-18-2024 History of Presen t illness Narrative Associated Order(s): L Inj/Asp: L glenohumeral; L Inj/Asp: L subacromial bursa Post-Procedure Diagnose(s): Left shoulder pain, unspecified chronicity L Inj/Asp: L glenohumeral on 12/18/2024 10:46 AM Indications: pain Details: 25 G needle, ultrasound-guided Medications: 1 mL betamethasone acetate-betamethasone sodium phosphate 6 (3-3) MG/ML Consent was given by the patient. L Inj/Asp: L subacromial bursa on 12/18/2024 10:47 AM Indications: pain Details: 25 G needle, ultrasound-guided Medications: 1 mL betamethasone acetate-betamethasone sodium phosphate 6 (3-3) MG/ML Consent was given by the patient. Images from the original note were not included. @ENCDATE@ Tony Tierney Raudel is a 79 y.o. male who presents for Pain of the Left Shoulder HPI: History of Present Illness The patient is an 79-year-old right-hand dominant male who presents today for a follow-up on his left shoulder. He is accompanied by his . He received cortisone injections on 05/11/2024 and 08/14/2024. The relief from the first two injections lasted approximately 6 to 8 weeks, after which he began to experience pain again. He has previously sought pain management at [place], where he received nerve blocks for his lumbar spine. He has an upcoming appointment with his physician in a few weeks. His inquires about the possibility of surgery to address the shoulder. He expresses interest in receiving another injection today as he plans to participate in a [employer] trip to [facility] at the end of January 2025. He also mentions that he has other activities planned for the fall and winter seasons. He is considering scheduling surgery after February 2025. He has been managing his pain with medication and notes that he will need to schedule another appointment if he continues to take the pain pills. His medical history includes a torn rotator cuff, arthritis, and a ruptured bicep in his contralateral right shoulder, which were treated surgically by Dr. Moreland. SUBJECTIVE: MEDICATIONS: Current Outpatient Medications Medication Instructions amoxicillin (AMOXIL) 500 mg Apple Cider Vinegar 600 MG capsule 1 tablet, Every 8 hours Ascorbic Acid (Vitamin C) 500 MG capsule Every 24 hours aspirin 81 MG EC tablet Every 24 hours atenolol (TENORMIN) 50 mg, Oral, Daily atorvastatin (LIPITOR) 40 mg, Oral, Daily Bexagliflozin (BRENZAVVY) 20 mg, Oral, Daily cholecalciferol (Vitamin D-3) 50 MCG (1999 UT) tablet Every 24 hours famotidine (PEPCID) 20 mg, Oral, 2 times daily fluticasone (Flonase) 50 MCG/ACT nasal spray 1 spray, Each Nostril, Daily, Shake gently. Before first use, prime pump. After use, clean tip and replace cap. glucose blood test strip Daily testing Lancet Devices (Autolet) lancing device Daily testing lisinopril 20 mg, Oral, 2 times daily loratadine (CLARITIN) 10 mg, Oral, Daily Melatonin 3-10 MG tablet Multiple Vitamins-Minerals (Multivitamin Adults 50+) tablet Every 24 hours omeprazole (PRILOSEC) 20 mg, Oral, Every 24 hours SITagliptin (JANUVIA) 100 mg, Oral, Daily Tresiba FlexTouch 34 Units, Subcutaneous, 2 times daily zinc 30 MG tablet Every 24 hours ALLERGIES: No Known Allergies SURGICAL HISTORY: Past Surgical History: Procedure Laterality Date ANTERIOR CRUCIATE LIGAMENT REPAIR COLONOSCOPY 2011 EYE SURGERY KNEE SURGERY Arthroscopy knee MOHS SURGERY MS REPAIR OF NASAL SEPTUM nasal septoplasty to correct a deviated nasal septum ROTATOR CUFF REPAIR SHOULDER ARTHROSCOPY 05/09/2020 Rt shoulder scope, LHB debridement, RCR/SAD- DAP SKIN BIOPSY THROAT SURGERY x 2- per Dr Rowland TONSILLECTOMY VASECTOMY FAMILY HISTORY: Family History Problem Relation Name Age of Onset Diabetes Mother Terra Starks Hypertension Mother Terra Starks Heart disease Mother Terra Starks Other (Other) Father Yuval [...] date: 02/06/1991 Quit date: 02/06/2006 Years since quittin.8 Smokeless tobacco: Never Tobacco comments: Last smoked: more than 10 years ago Substance Use Topics Alcohol use: Yes Alcohol/week: 1.0 standard drink of alcohol Types: 1 Cans of beer per week Comment: I drink a beer once a week Drug use: Never Depression: Not at risk (05/08/2024) PHQ-2 PHQ-2 Score: 0 REVIEW OF SYMPTOMS: Review of Systems The review of systems, history and current medications list are all reviewed today. OBJECTIVE: Visit Vitals Ht 5' 9 Wt 164 lb BMI 24.22 kg/m Smoking Status Former BSA 1.9 m Physical Exam Alert and oriented, no acute distress. Mood and affect are appropriate. Gait: Patient is ambulating independently. Left Shoulder: Passive range of motion of the left shoulder is 160 degrees of forward flexion, 90 degrees of abduction, and 60 degrees of external rotation. He has good strength with forward flexion, internal and external rotation and resisted supination. There is no Tomer deformity. Positive Cantrell, Neer impingement, positive Whipple, positive [place]'s tests are observed. Right shoulder: The skin is warm, dry, and intact. There is no swelling, atrophy, or deformity. The patient can raise the arm overhead. Full forward elevation, abduction, internal and external rotation. No weakness with internal and external rotation, resisted supination, or forward flexion. Well healed portals. Ortho Exam Results ASSESSMENT AND PLAN: I reviewed the history, physical exam, diagnostic studies, and diagnosis with the patient. Assessment & Plan 1. SLAP tear, rotator cuff tendinosis, AC joint arthritis, outlet impingement, left shoulder. 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 Another cortisone injection will be administered today to provide relief during his trip. If the nerve block proves effective, he may cancel the scheduled surgery. A limited ultrasound examination of the left shoulder was performed. The patient's hand was placed in the lap in the supinated position. The biceps tendon, subscapularis, and pectoralis major were visualized at the anterior aspect of the shoulder. The acromioclavicular joint was then identified at the superior aspect of the shoulder. The patient's hand was then placed behind the back near the waist. The probe was moved to the lateral aspect of the shoulder and the supraspinatus and infraspinatus were visualized in the subacromial space. The anterolateral aspect of the shoulder was then prepped with alcohol and betadine. Using ultrasound guidance, a 25-gauge 1-1/2 inch needle was inserted into the subacromial space adjacent to the supraspinatus. A mixture of 1 mL of 1% plain lidocaine and 1 mL of betamethasone was then injected. The patient's arm was then placed back at the side and the probe was moved to the posterior aspect of the shoulder. The glenohumeral joint was visualized. The area was prepped with alcohol and betadine. Using ultrasound guidance, a new 25 gauge 1-1/2 inch needle was inserted into the glenohumeral joint from a posterior approach. A mixture of 1 mL of 1% plain lidocaine and 1 mL of betamethasone was then injected. The patient tolerated this well. A Band-Aid was applied. The patient was instructed to ice the shoulder and to watch for any signs of infection including redness, increased pain, drainage from the injection site, fever, chills, etc. The patient was instructed to call the office if he/she experiences any adverse reaction to the injection. We will proceed with left shoulder arthroscopy, subacromial decompression, distal clavicle excision, biceps tenodesis. Return closer to surgical date for presurgical testing and H&P. A total of 30 to 39 minutes was spent on this patient encounter which included chart review, check in, nurse triage, history taking, physical examination, diagnostic study review, patient counseling and discussion, entering information into the patient's medical record, and coordinating patient care. Diagnoses and all orders for this visit: Left shoulder pain, unspecified chronicity - L Inj/Asp: L glenohumeral - L Inj/Asp: L subacromial bursa Bigg Bowens D.O. Attestation This note was created using voice recognition through [employer]. documented in this encounter [facility] 12-05-2024 Telephone encount er Note Sent as requested. [facility] 12-05-2024 Miscellaneous Notes Formattin g of this note might be different from the original. Sent as requested. Refill on Omeprazole to [facility] Last appt: 09/05/2024 Next appt: 01/03/2025 documented in this encounter [facility] 12-05-2024 Telephone encount er Note Refill on Omeprazole to [facility] Last appt: 09/05/2024 Next appt: 01/03/2025 [facility] 09-19-2024 Telephone encount er Note Requesting refill on januvia, please send to Derek. [facility] 09-19-2024 Miscellaneous Notes Formattin g of this note might be different from the original. Requesting refill on januvia, please send to Derek. documented in this encounter [facility] 09-05-2024 History of Presen t illness Narrative Images from the original note were not included. Tony Starks is a 79 y.o. male presents with chief complaint of 4 months ago HPI: Presents today for recheck appt Overall is feeling well More active cutting wood, yard work, feels better when more active Eating well, relates that he has a snack about 920pm each night then goes to bed about 1130 pm He has crackers and cheese at bedtime , last night had ice cream Recently had signif night sweat awoke at 0300 with BS of 180 Has checked 2 hour post prandial bs and feels that 180 with a rare 200 is the highest, does attempt to eat fiber first with meals History of Present Illness History of Present Illness SUBJECTIVE: MEDICATIONS: Current Outpatient Medications Medication Instructions amoxicillin (AMOXIL) 500 mg Apple Cider Vinegar 600 MG capsule 1 tablet, Every 8 hours Ascorbic Acid (Vitamin C) 500 MG capsule Every 24 hours aspirin 81 MG EC tablet Every 24 hours atenolol (TENORMIN) 50 mg, Oral, Daily atorvastatin (LIPITOR) 40 mg, Oral, Daily Bexagliflozin (BRENZAVVY) 20 mg, Oral, Daily cholecalciferol (Vitamin D-3) 50 MCG (1999) tablet Every 24 hours famotidine (PEPCID) 20 mg, Oral, 2 times daily fluticasone (Flonase) 50 MCG/ACT nasal spray 1 spray, Each Nostril, Daily, Shake gently. Before first use, prime pump. After use, clean tip and replace cap. glucose blood test strip Daily testing Lancet Devices (Autolet) lancing device Daily testing lisinopril 20 mg, Oral, 2 times daily loratadine (CLARITIN) 10 mg, Oral, Daily Melatonin 3-10 MG tablet Multiple Vitamins-Minerals (Multivitamin Adults 50+) tablet Every 24 hours omeprazole (PRILOSEC) 20 mg, Oral, Every 24 hours SITagliptin (JANUVIA) 100 mg, Oral, Daily Tresiba FlexTouch 34 Units, Subcutaneous, 2 times daily zinc 30 MG tablet Every 24 hours ALLERGIES: No Known Allergies SURGICAL HISTORY: Past Surgical History: Procedure Laterality Date ANTERIOR CRUCIATE LIGAMENT REPAIR COLONOSCOPY 2010 KNEE SURGERY Arthroscopy knee MS REPAIR OF NASAL SEPTUM nasal septoplasty to [...] date: 02/06/1991 Quit date: 02/06/2006 Years since quittin.5 Smokeless tobacco: Never Tobacco comments: Last smoked: more than 10 years ago Substance Use Topics Alcohol use: Yes Alcohol/week: 1.0 standard drink of alcohol Types: 1 Cans of beer per week Comment: I drink a beer once a week Drug use: Never Depression: Not at risk (05/08/2024) PHQ-2 PHQ-2 Score: 0 REVIEW OF SYMPTOMS: Review of Systems Constitutional: Negative for appetite change and fatigue. Eyes: Negative for visual disturbance. Respiratory: Negative for cough. Cardiovascular: Negative for chest pain and palpitations. Gastrointestinal: Negative for abdominal pain. Genitourinary: Negative for difficulty urinating. Musculoskeletal: Positive for arthralgias. See hpi Neurological: Negative for dizziness. Psychiatric/Behavioral: Negative. Hematological: Negative for adenopathy. Endocrine: Negative for polydipsia. See hpi ..I have reviewed and reconciled the history, allergies, family history, social history, and the medication list with the patient today. OBJECTIVE: Visit Vitals BP 150/70 (BP Location: Right arm, Patient Position: Sitting, BP Cuff Size: Adult) Pulse 76 Temp 97.6 F (Tympanic) Resp 18 Ht 5' 9 Wt 164 lb 3.2 oz SpO2 97% BMI 24.25 kg/m Smoking Status Former BSA 1.9 m Physical Exam Constitutional: Appearance: Normal appearance. Comments: [place] for age, baseline self HENT: Head: Normocephalic and atraumatic. Eyes: Pupils: Pupils are equal, round, and reactive to light. Cardiovascular: Rate and Rhythm: Normal rate and regular rhythm. Heart sounds: Normal heart sounds. Pulmonary: Effort: Pulmonary effort is normal. Breath sounds: Normal breath sounds. Comments: Diminished but clear Musculoskeletal: General: Normal range of motion. Skin: General: Skin is warm and dry. Neurological: General: No focal deficit present. Mental Status: He is alert. Psychiatric: Mood and Affect: Mood normal. Comments: Alert and interactive Rev the ortho note of 08-14-24 Rev lab of 09-01-24 aic 8% ASSESSMENT AND PLAN: Assessment/Plan Diagnoses and all orders for this visit: Type 2 diabetes mellitus with complication (CMS/HCC) Comments: aic on 8% on 09-01-24 , recommend a pure protein only at bedtime, recheck aic in 3 mo. meds januvia 100mg, tresiba 34 units bid, brenzavy 20mg in am. Orders: - Hemoglobin A1c; Future Primary hypertension (CMS/HCC) Comments: recheck bp wnl Stage 3a chronic kidney disease (HCC) (CMS/HCC) Comments: using sports drink on occasion at home, apr 2024 1.53, gfr 46 CPAP (continuous positive airway pressure) dependence Comments: 100% compliant with cpap use White coat syndrome with diagnosis of hypertension (CMS/HCC) Comments: relates bp also hi at other offices, check at home and call if greater than 140/90.he VU Discussed pasquale phen. At length. Encouraged no snack or protein at bedtime to steady overnight BS, call if this is not helpful. He is currently taking every 12 hour longacting insulin at 1130 am and pm. We may also need to adjust that , although he has alarm set on phone and is pretty regimented about this. Follow up for 4 mo recheck. aic prior. documented in this encounter [facility] 09-05-2024 Instructions Laya Plata NP - 09/05/2024 11:00 AM EDT Pure protein snack at bedtime Push water harder, this will help the cramps and the sugar!! Stay on your feet after meals Water after each meal Average blood sugar in 3 mo documented in this encounter [facility] 08-30-2024 Telephone encount er Note PT requesting refill on loratadine, please send to Steve. [facility] 08-30-2024 Miscellaneous Notes Formattin g of this note might be different from the original. PT requesting refill on loratadine, please send to Steve. documented in this encounter [facility] 08-14-2024 History of Presen t illness Narrative Images from the original note were not included. @ENCDATE@ Tony Kelsy Raudel is a 79 y.o. male who presents for Pain of the Left Shoulder HPI: History of Present Illness The patient is an 79-year-old right-hand dominant male who presents today for a follow-up on his left shoulder. He is accompanied by his . He received a cortisone injection on 05/11/2024, which provided relief for approximately 6 weeks. He reports a decrease in the severity of his pain, describing it as more dull than sharp. He expresses interest in receiving another injection, given the efficacy of the previous one. He experiences pain when elevating his arm to about 90 degrees but can achieve better range of motion with discomfort. He remains active, engaging in gardening activities. SUBJECTIVE: MEDICATIONS: Current Outpatient Medications Medication Instructions acetaminophen-codeine (Tylenol w/ Codeine #3) 300-30 MG tablet Apple Cider Vinegar 600 MG capsule 1 tablet, Every 8 hours Ascorbic Acid (Vitamin C) 500 MG capsule Every 24 hours aspirin 81 MG EC tablet Every 24 hours atenolol (TENORMIN) 50 mg, Oral, Daily atorvastatin (LIPITOR) 40 mg, Oral, Daily Bexagliflozin (BRENZAVVY) 20 mg, Oral, Daily cholecalciferol (Vitamin D-3) 50 MCG (1999 UT) tablet Every 24 hours famotidine (PEPCID) 20 mg, Oral, 2 times daily fluticasone (Flonase) 50 MCG/ACT nasal spray 1 spray, Each Nostril, Daily, Shake gently. Before first use, prime pump. After use, clean tip and replace cap. hydroCHLOROthiazide (HYDRODIURIL) 25 mg, Oral, Every morning lisinopril 20 mg, Oral, 2 times daily loratadine (CLARITIN) 10 mg, Oral, Daily Melatonin 3-10 MG tablet Multiple Vitamins-Minerals (Multivitamin Adults 50+) tablet Every 24 hours omeprazole (PRILOSEC) 20 mg, Oral, Every 24 hours SITagliptin (JANUVIA) 100 mg, Oral, Daily Tresiba FlexTouch 34 Units, Subcutaneous, 2 times daily zinc 30 MG tablet Every 24 hours ALLERGIES: No Known Allergies SURGICAL HISTORY: Past Surgical History: Procedure Laterality Date ANTERIOR CRUCIATE LIGAMENT REPAIR COLONOSCOPY 2010 KNEE SURGERY Arthroscopy knee MS REPAIR OF NASAL SEPTUM nasal septoplasty to [...] date: 02/06/1991 Quit date: 02/06/2006 Years since quittin.5 Smokeless tobacco: Never Tobacco comments: Last smoked: more than 10 years ago Substance Use Topics Alcohol use: Yes Alcohol/week: 1.0 standard drink of alcohol Types: 1 Cans of beer per week Comment: I drink a beer once a week Drug use: Never Depression: Not at risk (05/08/2024) PHQ-2 PHQ-2 Score: 0 REVIEW OF SYMPTOMS: Review of Systems The review of systems, history and current medications list are all reviewed today. OBJECTIVE: Visit Vitals Smoking Status Former Physical Exam Alert and oriented, no acute distress. Mood and affect are appropriate. Gait: Patient is ambulating independently. Left Shoulder: Passive range of motion of the left shoulder is 160 degrees of forward flexion, 90 degrees of abduction, and 60 degrees of external rotation. He has good strength with forward flexion, internal and external rotation and resisted supination. There is no Tomer deformity. Positive Cantrell, Neer impingement, positive Whipple, positive [place]'s tests are observed. Right shoulder: The skin is warm, dry, and intact. There is no swelling, atrophy, or deformity. The patient can raise the arm overhead. Full forward elevation, abduction, internal and external rotation. No weakness with internal and external rotation, resisted supination, or forward flexion. Ortho Exam Results ASSESSMENT AND PLAN: I reviewed the history, physical exam, diagnostic studies, and diagnosis with the patient. Assessment & Plan 1. SLAP tear, rotator cuff tendinosis, outlet impingement, left shoulder. Another cortisone injection was administered today to potentially improve symptoms for the summer. Up to three injections per year are permissible if needed. Advised to contact the office if another injection is required in the fall or if symptoms worsen before the scheduled follow-up. A limited ultrasound examination of the left shoulder was performed. The patient's hand was placed in the lap in the supinated position. The biceps tendon, subscapularis, and pectoralis major were visualized at the anterior aspect of the shoulder. The acromioclavicular joint was then identified at the superior aspect of the shoulder. The patient's hand was then placed behind the back near the waist. The probe was moved to the lateral aspect of the shoulder and the supraspinatus and infraspinatus were visualized in the subacromial space. The anterolateral aspect of the shoulder was then prepped with alcohol and betadine. Using ultrasound guidance, a 25-gauge 1-1/2 inch needle was inserted into the subacromial space adjacent to the supraspinatus. A mixture of 1 mL of 1% plain lidocaine and 1 mL of betamethasone was then injected. The patient's arm was then placed back at the side and the probe was moved to the posterior aspect of the shoulder. The glenohumeral joint was visualized. The area was prepped with alcohol and betadine. Using ultrasound guidance, a new 25 gauge 1-1/2 inch needle was inserted into the glenohumeral joint from a posterior approach. A mixture of 1 mL of 1% plain lidocaine and 1 mL of betamethasone was then injected. The patient tolerated this well. A Band-Aid was applied. The patient was instructed to ice the shoulder and to watch for any signs of infection including redness, increased pain, drainage from the injection site, fever, chills, etc. The patient was instructed to call the office if he/she experiences any adverse reaction to the injection. Follow-up Follow up in 4 months. A total of 30 to 39 minutes was spent on this patient encounter which included chart review, check in, nurse triage, history taking, physical examination, diagnostic study review, patient counseling and discussion, entering information into the patient's medical record, and coordinating patient care. There are no diagnoses linked to this encounter. Bigg Bowens D.O. Attestation This note was created using voice recognition through [employer]. documented in this encounter [facility] 07-10-2024 Telephone encount er Note Med refill request. Med loaded [facility] 07-10-2024 Miscellaneous Notes Formattin g of this note might be different from the original. Med refill request. Med loaded documented in this encounter [facility] 06-05-2024 Telephone encount er Note Sent as requested [facility] 06-05-2024 Miscellaneous Notes Formattin g of this note might be different from the original. Sent as requested He needs a refill on his Famotidine and Lisinopril sent to [facility] documented in this encounter [facility] 06-05-2024 Telephone encount er Note He needs a refill on his Famotidine and Lisinopril sent to [facility] 05-26-2024 Telephone encount er Note Insurance letter to change insuline to deglutide.new rx sent. This was already sent [facility] 05-26-2024 Miscellaneous Notes Formattin g of this note might be different from the original. Insurance letter to change insuline to deglutide.new rx sent. This was already sent documented in this encounter [facility] 05-21-2024 Telephone encount er Note Refill of insulin to [facility] for longer supply per pt request [facility] 05-21-2024 Miscellaneous Notes Formattin g of this note might be different from the original. Refill of insulin to [facility] for longer supply per pt request documented in this encounter [facility] 05-11-2024 History of Presen t illness Narrative Associated Order(s): L Inj/Asp: L glenohumeral; L Inj/Asp: L subacromial bursa Post-Procedure Diagnose(s): Left shoulder pain, unspecified chronicity L Inj/Asp: L glenohumeral on 05/11/2024 3:34 PM Indications: pain Details: 25 G needle, ultrasound-guided Medications: 1 mL betamethasone acetate-betamethasone sodium phosphate 6 (3-3) MG/ML Consent was given by the patient. L Inj/Asp: L subacromial bursa on 05/11/2024 3:35 PM Indications: pain Details: 25 G needle, ultrasound-guided Medications: 1 mL betamethasone acetate-betamethasone sodium phosphate 6 (3-3) MG/ML Consent was given by the patient. Images from the original note were not included. @ENCDATE@ Tonycaty Starks is a 78 y.o. male who presents for Pain of the Left Shoulder HPI: History of Present Illness The patient is an 78-year-old [id number]-wcuibqcr gentleman seen as a new patient to my practice today as a referral from my partner, Dr. Moreland, for his left shoulder. He is accompanied by his . He has been experiencing pain in his left shoulder for the past few years. He notes discomfort along the lateral aspect of his shoulder with radiation into the lateral arm. He reports no radicular pain distal to the elbow. His pain is causing him difficulty sleeping at night. He received a cortisone injection into the shoulder by Dr. Moreland on 04/02/2023, which did provide some improvement in his symptoms. He has been under the care of pain management previously with Dr. Washington and now a different physician as Dr. Washington is no longer in practice. He received a supraclavicular nerve block on 03/07/2024, which unfortunately did not provide any improvement in his symptoms. He has tried taking Tylenol with codeine. SUBJECTIVE: MEDICATIONS: Current Outpatient Medications Medication Instructions acetaminophen-codeine (Tylenol w/ Codeine #3) 300-30 MG tablet Apple Cider Vinegar 600 MG capsule 1 [...] 50 MCG (1999) tablet Every 24 hours famotidine (PEPCID) 20 mg, Oral, 2 times daily fluticasone (Flonase) 50 MCG/ACT nasal spray 1 spray, Each Nostril, Daily, Shake gently. Before first use, prime pump. After use, clean tip and replace cap. hydroCHLOROthiazide (HYDRODIURIL) 25 mg, Oral, Every morning insulin degludec (Tresiba FlexTouch) 200 UNIT/ML injection INJECT 34 UNITS UNDER THE SKIN IN THE MORNING AND 34 UNITS BEFORE BEDTIME. lisinopril 20 mg, Oral, 2 times daily loratadine (CLARITIN) 10 mg, Oral, Daily Melatonin 3-10 MG tablet 1 tablet at bedtime as needed Orally at bedtime Multiple Vitamins-Minerals (Multivitamin Adults 50+) tablet Every 24 hours omeprazole (PRILOSEC) 20 mg, Oral, Every 24 hours SITagliptin (JANUVIA) 100 mg, Oral, Daily zinc 30 MG tablet Every 24 hours ALLERGIES: No Known Allergies SURGICAL HISTORY: Past Surgical History: Procedure Laterality Date ANTERIOR CRUCIATE LIGAMENT REPAIR COLONOSCOPY 2010 KNEE SURGERY Arthroscopy knee MS REPAIR OF NASAL SEPTUM nasal septoplasty to [...] date: 02/06/1991 Quit date: 02/06/2006 Years since quittin.2 Smokeless tobacco: Never Tobacco comments: Last smoked: more than 10 years ago Substance Use Topics Alcohol use: Yes Alcohol/week: 1.0 standard drink of alcohol Types: 1 Cans of beer per week Comment: I drink a beer once a week Drug use: Never Depression: Not at risk (05/08/2024) PHQ-2 PHQ-2 Score: 0 REVIEW OF SYMPTOMS: Review of Systems The review of systems, history and current medications list are all reviewed today. OBJECTIVE: Visit Vitals Temp 97.5 F Ht 5' 9 Wt 166 lb BMI 24.51 kg/m Smoking Status Former BSA 1.91 m Physical Exam Alert and oriented, no acute distress. Mood and affect are appropriate. Ambulating independently. Gait is nonantalgic. LEFT SHOULDER In the left shoulder, he can raise the arm overhead, but experiences pain when doing so. His passive forward flexion, abduction, internal and external rotation is maintained. He has good strength with forward flexion, internal and external rotation and resisted supination. There is no Tomer deformity. Positive Cantrell, Neer impingement, positive Whipple, positive [place]'s tests are observed. RIGHT SHOULDER The skin is warm, dry, and intact. There is no swelling, atrophy, or deformity. The patient can raise the arm overhead. Full forward elevation, abduction, internal and external rotation. No weakness with internal and external rotation, resisted supination, or forward flexion. Negative [place]'s. Negative Neer/Cantrell impingement. Ortho Exam Results Imaging X-rays of the left shoulder Grashey and outlet views performed in our office on 04/24/2024 and 2 views Zanca and axillary taken today and saved to the permanent medical record are reviewed. There is mild glenohumeral joint space narrowing. The acromiohumeral interval is within normal limits. There's moderate arthritic change at the AC joint. There's a type 2 acromion. Visualized lung molina are clear. MRI of the left shoulder performed 03/31/2024 at the [facility] report and images are reviewed. Glenohumeral cartilage appears to be preserved. Areas of tendinosis with maybe low grade partial thickness tear in the supraspinatus, there is tearing of the superior labrum, arthritic changes are present at the AC joint. There is no atrophy of the rotator cuff. ASSESSMENT AND PLAN: I reviewed the history, physical exam, diagnostic studies, and diagnosis with the patient. Assessment & Plan The patient is an 78-year-old grrnp-kavd-zxbvxcde male with SLAP tear, rotator cuff tendinosis, outlet impingement left shoulder. Tony would like to continue with conservative measures. Cortisone injections into the shoulder were administered today. A limited ultrasound examination of the left shoulder was performed. The patient's hand was placed in the lap in the supinated position. The biceps tendon, subscapularis, and pectoralis major were visualized at the anterior aspect of the shoulder. The acromioclavicular joint was then identified at the superior aspect of the shoulder. The patient's hand was then placed behind the back near the waist. The probe was moved to the lateral aspect of the shoulder and the supraspinatus and infraspinatus were visualized in the subacromial space. The anterolateral aspect of the shoulder was then prepped with alcohol and betadine. Using ultrasound guidance, a 25-gauge 1-1/2 inch needle was inserted into the subacromial space adjacent to the supraspinatus. A mixture of 1 mL of 1% plain lidocaine and 1 mL of betamethasone was then injected. The patient's arm was then placed back at the side and the probe was moved to the posterior aspect of the shoulder. The glenohumeral joint was visualized. The area was prepped with alcohol and betadine. Using ultrasound guidance, a new 25 gauge 1-1/2 inch needle was inserted into the glenohumeral joint from a posterior approach. A mixture of 1 mL of 1% plain lidocaine and 1 mL of betamethasone was then injected. The patient tolerated this well. A Band-Aid was applied. The patient was instructed to ice the shoulder and to watch for any signs of infection including redness, increased pain, drainage from the injection site, fever, chills, etc. The patient was instructed to call the office if he/she experiences any adverse reaction to the injection. Follow-up The patient will follow up in 3 months for re-evaluation. A total of 30 to 39 minutes was spent on this patient encounter which included chart review, check in, nurse triage, history taking, physical examination, diagnostic study review, patient counseling and discussion, entering information into the patient's medical record, and coordinating patient care. Diagnoses and all orders for this visit: Left shoulder pain, unspecified chronicity - XR shoulder 2+ views left - L Inj/Asp: L glenohumeral - L Inj/Asp: L subacromial bursa Bigg Bowens D.O. Attestation This note was created using voice recognition through [employer]. documented in this encounter [facility] 05-08-2024 History of Presen t illness Narrative Subjective : Chief Complaint: Tony Starks is an 78 y.o. male here for an annual wellness visit. ..Here for well exam Overall reports feeling well , retired, traveling No syncope or falls No cp or sob No GI/ issues, daily bm, no black or bloody bm No skin changes MS changes-see ros re: left shoulder pain , had one recent steroid injection, pain is present daily Good water intake, 2-3 coffee per day, no soda, rare etoh, nonsmoker (smoked 1 ppd for 25 yrs, quit about 16 yo) C/o feeling that he is thirsty a lot, also urinates a lot CPAP Uses 100% of nights, , tolerates well and finds sleep is more restorative. Awakens with dry mouth and thirsty I have reviewed and reconciled the medication list with the patient today. Current Outpatient Medications Medication Sig Dispense Refill acetaminophen-codeine (Tylenol w/ Codeine #3) 300-30 MG tablet Apple Cider Vinegar 600 MG capsule Take 1 tablet by mouth every 8 (eight) hours. Ascorbic Acid (Vitamin C) 500 MG capsule 1 (one) time each day at the same time. aspirin 81 MG EC tablet 1 (one) time each day at the same time. atenolol (Tenormin) 50 MG tablet TAKE 1 TABLET BY MOUTH DAILY AT THE SAME TIME EACH DAY 90 tablet 1 atorvastatin (Lipitor) 40 MG tablet Take 1 tablet (40 mg) by mouth Daily 90 tablet 3 Bexagliflozin (Brenzavvy) 20 MG tablet Take 20 mg by mouth Daily 90 tablet 3 cholecalciferol (Vitamin D-3) 50 MCG (2000 UT) tablet 1 (one) time each day at the same time. famotidine (Pepcid) 20 MG tablet Take 1 tablet (20 mg) by mouth in the morning and 1 tablet (20 mg) before bedtime. 180 tablet 3 fluticasone (Flonase) 50 MCG/ACT nasal spray Administer 1 spray into each nostril Daily Shake gently. Before first use, prime pump. After use, clean tip and replace cap. 48 mL 3 hydroCHLOROthiazide (HYDRODiuril) 25 MG tablet TAKE 1 TABLET BY MOUTH EVERY MORNING 90 tablet 3 insulin degludec (Tresiba FlexTouch) 200 UNIT/ML injection INJECT 34 UNITS UNDER THE SKIN IN THE MORNING AND 34 UNITS BEFORE BEDTIME. 9 mL 2 lisinopril 20 MG tablet Take 1 tablet (20 mg) by mouth in the morning and 1 tablet (20 mg) before bedtime. 180 tablet 1 loratadine (Claritin) 10 MG tablet Take 1 tablet (10 mg) by mouth in the morning. 90 tablet 3 Melatonin 3-10 MG tablet 1 tablet at bedtime as needed Orally at bedtime Multiple Vitamins-Minerals (Multivitamin Adults 50+) tablet 1 (one) time each day at the same time. omeprazole (PriLOSEC) [address] capsule Take 1 capsule (20 mg) by mouth 1 (one) time each day at the same time 90 capsule 3 Pyridoxine HCl (Vitamin B6) 100 MG tablet 1 (one) time each day at the same time. SITagliptin (Januvia) 100 MG tablet Take 1 tablet (100 mg) by mouth Daily 90 tablet 3 zinc 30 MG tablet 1 (one) time each day at the same time. No current facility-administered medications for this visit. Review of Systems Constitutional: Negative for activity change, appetite change and fever. HENT: Negative for sinus pressure. Eyes: Negative for visual disturbance. Respiratory: Negative for cough, chest tightness, shortness of breath and wheezing. Cpap dependent Cardiovascular: Negative for chest pain, palpitations and leg swelling. Gastrointestinal: Negative for abdominal pain. Genitourinary: Positive for frequency. Negative for difficulty urinating. Musculoskeletal: Positive for arthralgias. Minor aches and pains he relates to some arthritis Focal c/o in the left shoulder, seen by pain management in [place], they ordered mri of shoulder, saw dr moreland, her referred him to dr bowens, has appt this Skin: Negative. Neurological: Negative for dizziness and headaches. Psychiatric/Behavioral: Negative. Endocrine: See hpi Allergic/Immunologic: Negative for environmental allergies. List of current healthcare providers: Patient Care Team: Daniel Pop DO as PCP - General (Family Medicine) Laya Plata NP as PCP - [facility] Laya Plata NP as Nurse Practitioner (Family Medicine) Medicare Annual Visit Over the past 2 weeks, how often have you been bothered by any of the following problems? Little interest or pleasure in doing things: Not at all Feeling down, depressed, or hopeless: Not at all Patient Health Questionnaire-2 Score: 0 [place] Risk History of Falling, Immediate or Within 3 Months: No Health Risk Assessment Form Do you need help eating, bathing, using the toilet, dressing, or getting around your home?: No Can you prepare your own meals?: Yes Can you do your own housework without help?: Yes Can you shop for groceries or clothes without help?: Yes Do you exercise for about 20 minutes 3 or more days a week?: Yes How confident are you that you can control and manage most of your health problems?: Very confident Can you mange your money, credit cards and accounts, pay bills and taxes?: Yes Vision Screening: Yes, patient sees regular risk consulting treasury director/anger control counselor Cognitive Screening Three Word Registration: Banana, [place], Chair Clock Drawing: Normal Clock - 2 Three Word Recall: All 3 words correct - 3 Total Score (0-5 Points): 5 Objective : BP 120/50 (BP Location: Left arm, Patient Position: Sitting, BP Cuff Size: Adult) Pulse 65 Temp 98.8 F (Tympanic) Resp 18 Ht 5' 9 Wt 166 lb 9.6 oz SpO2 94% BMI 24.60 kg/m No results found. Physical Exam Constitutional: Appearance: Normal appearance. HENT: Head: Normocephalic. Nose: Nose normal. Mouth/Throat: Mouth: Mucous membranes are dry. Eyes: Extraocular Movements: Extraocular movements intact. Pupils: Pupils are equal, round, and reactive to light. Neck: Vascular: No carotid bruit. Cardiovascular: Rate and Rhythm: Normal rate and regular rhythm. Pulses: Normal pulses. Heart sounds: Normal heart sounds. Pulmonary: Effort: Pulmonary effort is normal. Breath sounds: Normal breath sounds. Abdominal: General: Abdomen is flat. Palpations: Abdomen is soft. Musculoskeletal: General: Normal range of motion. Cervical back: Normal range of motion and neck supple. Comments: Moves about well Left ac joint is tender to palpation, subacromial bursa is somewhat tender, Mild decrease in left shoulder rom Skin: General: Skin is warm and dry. Neurological: General: No focal deficit present. Mental Status: He is alert. Psychiatric: Mood and Affect: Mood normal. Comments: Alert and interactive Rev with pt labs of 05-05-24 Rev MRI of left shoulder ordered per [facility] pain management Assessment/Plan : Diagnoses and all orders for this visit: Medicare annual wellness visit, initial Comments: whole foods diet, walk for exercise. Stage 3a chronic kidney disease (HCC) (CMS/HCC) Comments: per lab of 05-05-24 cr 1.53, gfr 46, worse than previous, pointed out bun up, encouraged improved hydration Primary hypertension (CMS/HCC) Comments: walk for exercise Mixed hyperlipidemia (CMS/HCC) Comments: continue the statin, discussed benefits of increasing fiber in diet Type 2 diabetes mellitus with complication (CMS/HCC) Comments: aic 8.7% on 05-05-24, prev was 9.6% and this does cover holidays so better Orders: - Hemoglobin A1c; Future Obstructive sleep apnea syndrome Comments: continue use as previous, tolerates well, use humidifier Chronic GERD Comments: well controlled on daily PPI Lumbar spondylosis Comments: no acute c/o, encouraged to stretch and hydrate Degeneration of intervertebral disc of lumbar region, unspecified whether pain present Comments: as above Arthritis, multiple joint involvement Comments: good control at this time, discussed need to keep moving and to hydrate Environmental and seasonal allergies Comments: good control at this time of year Vitamin D deficiency Comments: 07-14-22 level was 55, continue supplement as previous CPAP (continuous positive airway pressure) dependence Comments: use as previous, call if any issues, tolerates well and finds sleep is more restorative. Health Maintenance Topic Date Due Diabetes: Retinopathy Screening 12/11/2023 Influenza Vaccine (1) 10/02/2024 (Originally 12/05/2023) Diabetes: Hemoglobin A1C 08/04/2024 Diabetes: Urine Protein Screening 01/11/2025 Pneumococcal Vaccine: 65+ Years Completed Advance Care Planning Orders Placed This Encounter Procedures Hemoglobin A1c Standing Status: Future Number of Occurrences: 1 Standing Expiration Date: 05/08/2025 Order Specific Question: Print requisition? Answer: No Laya Plata NP Patient Instructions Lets stop the b 6 vitamin (would not recommend over a long period of time) Drink even more water than current, perhaps drink of water early in the am , try to drink 8 oz of water after each meal Same medications otherwise Recheck the aic prior to next appt in 4 mo Follow up in about 3 months (around 08/05/2024) for 3 mo , aic lab prior. documented in this encounter [facility] 05-08-2024 Instructions Laya Plata NP - 05/08/2024 11:00 AM EST Lets stop the b 6 vitamin (would not recommend over a long period of time) Drink even more water than current, perhaps drink of water early in the am , try to drink 8 oz of water after each meal Same medications otherwise Recheck the aic prior to next appt in 4 mo documented in this encounter [facility] 05-08-2024 Evaluation note Diagnosis Medicare annual wellness visit, initial- Primary Stage 3a chronic kidney disease (HCC) (CMS/HCC) Primary hypertension (CMS/HCC) Unspecified essential hypertension Mixed hyperlipidemia (CMS/HCC) Mixed hyperlipidemia Type 2 diabetes mellitus with complication (CMS/HCC) Obstructive sleep apnea syndrome Obstructive sleep apnea (adult) (pediatric) Chronic GERD Lumbar spondylosis Lumbosacral spondylosis without myelopathy Degeneration of intervertebral disc of lumbar region, unspecified whether pain present Arthritis, multiple joint involvement Unspecified arthropathy, multiple sites Environmental and seasonal allergies Vitamin D deficiency CPAP (continuous positive airway pressure) dependence Dependence on other enabling machine [id number] History of Present illness Narrative* Laya Plata NP - 05/01/2024 5:48 PM EST Lab orders created [id number] History of Present illness Narrative* January Eldridge - 04/24/2024 10:30 AM EST Tony Starks is a 78 y.o. male presents with chief complaint of left shoulder osteoarthritis with review of MRI. HPI: Tony is an 78-year-old white male referred back by pain management for results of an MRI. He has persisted with pain and difficulty. We have given him a couple of injections. He has had injections with pain management. He states it is not going away. He does have pain that is unrelenting and states that he needs to do something to address this level of pain that he is experiencing. SUBJECTIVE: MEDICATIONS: Current Outpatient Medications Medication Instructions acetaminophen-codeine (Tylenol w/ Codeine #3) 300-30 MG tablet Apple Cider Vinegar 600 MG capsule 1 [...] MCG (1999 UT) tablet Every 24 hours famotidine (PEPCID) 20 mg, Oral, 2 times daily fluticasone (Flonase) 50 MCG/ACT nasal spray 1 spray, Each Nostril, Daily, Shake gently. Before first use, prime pump. After use, clean tip and replace cap. hydroCHLOROthiazide (HYDRODIURIL) 25 mg, Oral, Every morning lisinopril 20 mg, Oral, 2 times daily [...] REPAIR COLONOSCOPY 2010 KNEE SURGERY Arthroscopy knee MS REPAIR OF NASAL SEPTUM nasal septoplasty to [...] date: 02/06/1991 Quit date: 02/06/2006 Years since quittin.2 Smokeless tobacco: Never Tobacco comments: Last smoked: more than 10 years ago Substance Use Topics Alcohol use: Yes Alcohol/week: 1.0 standard drink of alcohol Types: 1 Cans of beer per week Comment: I drink a beer once a week, Caffeine intake: 1-2 cups per day coffee Drug use: Never Depression: Not at risk (05/21/2023) PHQ-2 PHQ-2 Score: 0 REVIEW OF SYMPTOMS: The review of systems, history and current medications list are all reviewed today. OBJECTIVE: Visit Vitals Ht 5' 9 Wt 169 lb BMI 24.96 kg/m Smoking Status Former BSA 1.93 m Physical Exam His orthopedic examination here today shows no gross malalignment or deformity. He isgenerally deconditioned. He does have fairly well maintained range of motion of the shoulder, not alot of limitation. Cuff strength is grossly intact without any significant weakness. His neurocirculatory status is overall grossly intact. He does have a positive [place]'s for pain, no click. No crepitance noted. Examination of the right shoulder reveals arc of motion without difficulty. Cuff strength is excellent. Neurocirculatory status is overall grossly intact. His pulses are otherwise brisk. Examination of the x-rays, AP and lateral views of the left shoulder here today, total of two views, does show some level of osteoarthritic change, really unchanged overall and mild in nature. He does have still articular space remaining. He does have glenohumeral change as well as the acromioclavicular joint change. MRI is reviewed of the left shoulder. This is from the [facility]. He does have some rotatorcuff thinning and change. No evidence of fracture or other osseous abnormality. He does have some change at the superior labrum and its insertion point on the glenoid. This may likely represent a superior labral tear from anterior to posterior. There is no other pathology of significance noted. 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 The findings are discussed. The treatment alternatives are outlined. We did recommend supportive care for him and advancement of all activities. We did discuss addressing the mechanical findings, internal derangement and likely SLAP tear versus total shoulder arthroplasty based upon his osteoarthritic change. He feels he would like to go for the definitive answer and discuss total shoulder. We will set him up with Dr. Bowens accordingly for further discussion and an opinion in this matter. All of his questions are otherwise answered. We did discuss the differences between the procedures and did explain that we would have likely not ordered an MRI on him. He does voice understanding of that. All of his questions are otherwise answered at length. Follow up letter sent to his primary care physician. Cosigned by Pretty Moreland DO at 04/25/2024 5:32 PM EST documented in this encounterLake [facility] Health [id number] Telephone encounter Note* Telephone Encounter - Laya Plata NP - 04/14/2024 11:47 AM EST noted [facility] [id number] Miscellaneous Notes* Telephone Encounter - Laya Plata NP - 04/14/2024 11:47 AM EST noted * Telephone Encounter - Lindsay Diaz MA - 04/14/2024 10:49 AM EST Patient was in for an appointment with derm and on his way out he asked me to let you know: he has an appointment with Dr. Brown on 04/24/2024 re: the left shoulder documented in this encounterLake Regional Health [id number] Telephone encounter Note* Telephone Encounter - Lindsay Diaz MA - 04/14/2024 10:49 AM EST Patient was in for an appointment with derm and on his way out he asked me to let you know: he has an appointment with Dr. Brown on 04/24/2024 re: the left shoulder [facility] [id number] History of Present illness Narrative* PAPI Johnson - 04/14/2024 10:40 AM EST Skin Check Location: Patient requests a skin examination from the waist up Dermatologic history: history of Actinic Keratosis, history of Basal Cell Carcinoma (left cheek) Last visit: 1 year ago since last skin check All pertinent medical history, medications, and allergies were reviewed. General Exam: alert, oriented to person, place, and time, normal affect, well appearing A complete skin exam was offered, pt declined. Areas not examined despite medical recommendation: From the waist down Scalp, Examined Head, Face Examined Neck Examined Chest Examined Back Examined Abdomen Examined Right arm Examined Left arm Examined Hands Examined Digits,nails: Examined Lymphatics: Not examined 1. Melanocytic nevus of trunk (3) Generalized, Right Parotid Area, Torso - Posterior (Back) Scattered benign appearing, regular brown to light brown melanocytic papules and macules with similar morphology Counseled regarding these benign growths. Rarely, a nevus can develop into malignant melanoma, so any changing nevi should be promptly re-evaluated. 2. History of basal cell carcinoma Left cheek No evidence of recurrence at BCC scar. The patient was counseled that scars from excisional sites of nonmelanoma skin cancers should be monitored closely for recurrence. The patient was instructed to contact the office for any new, changing, or symptomatic moles. The patient was also instructed to contact the office for any new lesions that develop within or around the previous surgery scar. 3. Seborrheic keratosis Stuck on verrucous, variably pigmented papules and plaques. Patient was counseled regarding these benign growths. Removal is normally not necessary, but they may be removed if they are symptomatic or for cosmetic reasons. 4. Actinic keratosis Left Superior Prosperity Erythematous scaly papule Patient was counseled regarding these sun-induced growths that can develop into squamous cell carcinoma if left untreated. Discussed treatment with cryotherapy. It was emphasized that any treated lesions that fail to resolve should be re- evaluated. Cryotherapy performed today; see procedure note Diagnosis: Actinic keratosis Indication: Precancerous Location: see skin exam Consent: Verbal consent was obtained and risks were discussed, including, but not limited to risks of scarring, darker or lawn technician pigmentary changes, recurrence, incomplete removal and infection. [...] or tenderness Cryotherapy, skin lesion - Left Superior Prosperity 5. Lichen simplex chronicus Right Dorsal Hand Hypertrophic lichenified plaque. Flaring today The patient was informed that LSC is a skin disorder causing thickened itchy patch(es) on the top of the skin. It was explained that it is often caused by repeated rubbing or scratching of an area due to itching. Treatments to help with the itching were discussed which include steroid creams, intralesional kenalog injections, and occlusive dressings to prevent scratching. The patient was also encouraged to refrain from scratching. No treatment needed at this time. Next Visit: 1 year documented in this encounterLake Regional Health SystemHanywwnhgs05-20-0400 History of Present illness Narrative* Laya Plata, MERCEDES - 01/17/2024 10:30 AM EDT Tony Starks is a 78 y.o. male [...] 25 mg, Oral, Every morning [facility] [place] 32G X 4 MM misc Inject under [...] REPAIR COLONOSCOPY 2010 KNEE SURGERY Arthroscopy knee MS REPAIR OF NASAL SEPTUM nasal septoplasty to [...] him farxiga 10mg #28 samples, sent to [facility] for brenzavvy (sglt2) rec some protein w/ cold cereal in the am Orders: - dapagliflozin (Farxiga) 10 MG; Take 1 tablet (10 mg) by mouth Daily - Bexagliflozin (Brenzavvy) 20 MG tablet; Take 20 mg by mouth Daily Stage 3a chronic kidney disease (HCC) (CMS/HCC) Comments: push fluids, meds the same. we will add in sglt2 , brenzavvy daily. call if unable to obtain. awarehe will need to keep up good/to improved water intake. Type 2 diabetes mellitus with hyperglycemia (CMS/HCC) Comments: wnl Mixed hyperlipidemia (CMS/HCC) Comments: hi fiber, plant based diet recommended. remain on the statin. Follow up for aic before recheck 3.5 mo . documented in this encounterLake Regional Health [id number] Instructions* Patient Instructions* Laya Plata NP - 01/17/2024 10:30 AM EDT Farxiga 10mg per day with samples for now Brenzavvy is the new medication, one daily from the [facility] Call if any issues getting this Check aic again in 3 mo documented in this [facility]10-07-2024 Telephone encounter Note* Telephone Encounter - Laya Plata NP - 01/10/2024 11:24 AM EDT Sent as requested [facility] [id number] Miscellaneous Notes* Telephone Encounter - Laya Plata NP - 01/10/2024 11:24 AM EDT Sent as requested * Telephone Encounter - Lindsay Diaz MA - 01/10/2024 10:35 AM EDT Refill Atorvastatin 40mg --med loaded [facility] documented in this [facility]10-07-2024 Telephone encounter Note* Telephone Encounter - Lindsay Diaz MA - 01/10/2024 10:35 AM EDT Refill Atorvastatin 40mg --[facility] loaded [facility] [place] [id number] History of Present illness Narrative* PAPI Johnson - 01/10/2024 10:30 AM EDT Follow up Diagnosis: Actinic Keratosis Location: Left [...] limited to risks of scarring, darker or lawn technician pigmentary changes, recurrence, incomplete removal and infection. [...] Next Visit: as scheduled documented in this encounterLake Regional Health [id number] Telephone encounter Note* Telephone Encounter - Laya Plata NP - 12/13/2023 11:48 AM EDT Sent as requested [facility] SystemJmgguwtnzs01-94-4474 Miscellaneous Notes* Telephone Encounter - Laya Plata NP - 12/13/2023 11:48 AM EDT Sent as requested * Telephone Encounter - Lindsay Diaz MA - 12/13/2023 10:22 AM EDT [facility] in this [facility]09-09-2024 Telephone encounter Note* Telephone Encounter - Lindsay Diaz MA - 12/13/2023 10:22 AM EDT He would like a refill on Omeprazole and Lisinopril to [facility] [id number] Telephone encounter Note* Telephone Encounter - Laya Plata NP - 12/09/2023 1:38 PM EDT Sent as requested [place] [id number] Miscellaneous Notes* Telephone Encounter - Laya Plata NP - 12/09/2023 1:38 PM EDT Sent as requested * Telephone Encounter - Oneida Noel - 12/09/2023 11:56 AM EDT PT requesting refill on fluticasone, please send to [facility] documented in this [facility]09-05-2024 Telephone encounter Note* Telephone Encounter - Oneida Bert - 12/09/2023 11:56 AM EDT PT requesting refill on fluticasone, please [facility] to [facility] SystemJvinvrzpds99-91-8610 History of Present illness Narrative* PAPI Johnson - 11/30/2023 10:30 AM EDT Images from the original note [...] on patient reported problems, see below: 1. Segundo angioma Left Lower Cutaneous Lip Scattered segundo-red papule(s). The patient was informed that angiomas [...] lesions that fail to resolve should be re- evaluated. Cryotherapy performed today; see procedure note Diagnosis: Actinic keratosis Indication: Precancerous Location: see skin exam Consent: Verbal consent was obtained and risks were discussed, including, but not limited to risks of scarring, darker or lawn technician pigmentary changes, recurrence, incomplete removal and infection. [...] Visit: 6 weeks ([place]) documented in this encounterLake Regional Health [id number] NoteCONSULTATION CONSULTATION DATE: 04/23/2022 HISTORY OF PRESENT ILLNESS: [...] and patient will contact the office as needed.[facility] HospitalPbuecjnm59-15-0817 NoteCONSULTATION CONSULTATION DATE: 03/19/2022 HISTORY OF PRESENT ILLNESS: [...] will be followed up in the clinic thereafter.[facility] HospitalQzglqpdn74-19-4388 NoteOPERATIVE NOTE OPERATION DATE:07/22/2021 PREOPERATIVE DIAGNOSIS: Left shoulder [...] Approved by: DR ABNER WASHINGTON . 07/29/2021 12:16:00[facility] HospitalNmdhfsjv01-49-2679 NotePROCEDURE: XR SHOULDER LT 2V or > HISTORY: Pain of [...] Electronically authenticated by: OTF LIAO Date: 2021-07-16 15:31[facility]04-13-2022 NoteCONSULTATION PAIN MANAGEMENT CONSULTATION HISTORY OF PRESENT ILLNESS: [...] and Approved by: JESSE WOOD . 07/17/2021 16:20:00[facility] note* Diagnosis Pre-op testing Preoperative examination, unspecified Screening for colon cancer Special screening for malignant neoplasms, colon documented in this encounter way[facility] Phone: evaluation note* Diagnosis Actinic keratosis- Primary documented in this encounter [facility]* Diagnosis Mixed hyperlipidemia (CMS/HCC) Mixed hyperlipidemia documented in this encounter [facility]* Diagnosis Primary hypertension (CMS/HCC) Unspecified essential hypertension Type 2 diabetes mellitus with complication (CMS/HCC)- Primary Stage 3a chronic kidney disease (HCC) (CMS/HCC) documented in this encounter [facility]* Diagnosis Type 2 diabetes mellitus with complication (CMS/HCC)- Primary Stage 3a chronic kidney disease (HCC) (CMS/HCC) Type 2 diabetes mellitus with hyperglycemia (CMS/HCC) Mixed hyperlipidemia (CMS/HCC) Mixed hyperlipidemia documented in this encounter [facility]* Diagnosis Primary hypertension (CMS/HCC) Unspecified essential hypertension documented in this encounter [facility]* Diagnosis Segundo angioma- Primary Actinic keratosis documented in this encounter [facility]* Diagnosis Environmental and seasonal allergies documented in this encounter [facility]* Diagnosis Primary hypertension (CMS/HCC) Unspecified essential hypertension Chronic GERD documented in this encounter [facility]* Diagnosis Melanocytic nevus of trunk- Primary Benign neoplasm of skin of trunk, except scrotum History of basal cell carcinoma Personal history of other malignant neoplasm of skin Seborrheic keratosis Actinic keratosis Lichen simplex chronicus Lichenification and lichen simplex chronicus documented [facility] encounter [facility]* Diagnosis Left shoulder pain, unspecified chronicity- Primary Arthritis of left shoulder region Superior glenoid labrum lesion of left shoulder, initial encounter Impingement syndrome of left shoulder [facility] this encounter [facility]* Diagnosis Type 2 diabetes mellitus with other specified complication, unspecified whether prison insulin use ([facility]) documented in [facility] encounter [facility]* Diagnosis Elevated glucose- Primary Other abnormal glucose Essential hypertension ([facility]/HCC) Unspecified essential hypertension Elevated cholesterol ([facility]) Pure hypercholesterolemia Type 2 diabetes mellitus with complication ([facility]/HCC) Mixed hyperlipidemia ([facility]) Mixed hyperlipidemia documented in [facility] encounter [facility]* Diagnosis Left shoulder pain, unspecified chronicity- Primary documented in this encounter [facility]* Diagnosis Type 2 diabetes mellitus with other specified complication, unspecified whether prison insulin use ([facility]) documented in this encounter [facility]* Diagnosis Chronic GERD Primary hypertension ([facility]) Unspecified essential hypertension documented [facility] encounter [facility]* Diagnosis Primary hypertension ([facility]) Unspecified essential hypertension documented in this encounter [facility]* Diagnosis Left shoulder pain, unspecified chronicity- Primary [facility] in [facility]* Diagnosis Environmental and seasonal allergies documented in this encounter [facility]* Diagnosis Type 2 diabetes mellitus with complication ([facility]/HCC)- Primary Primary hypertension ([facility]) Unspecified essential hypertension Stage 3a chronic kidney disease (HCC) ([facility]) CPAP (continuous positive airway pressure) dependence Dependence on other enabling machine White coat syndrome with diagnosis of hypertension ([facility]/HCC) documented in this encounter [facility]* Diagnosis Type 2 diabetes mellitus with complication (HCC) documented in this encounter [facility]* Diagnosis Chronic GERD documented in this encounter [facility]* Diagnosis Left shoulder pain, unspecified chronicity documented in this encounter [facility]* Diagnosis Environmental and seasonal allergies Primary hypertension Unspecified essential hypertension documented in this encounter [facility]* Diagnosis Chronic left shoulder pain- Primary Pain in joint, shoulder region Mixed hyperlipidemia Type 2 diabetes mellitus with complication (HCC) Stage 3a chronic kidney disease ([facility]-HCC) Primary hypertension Unspecified essential hypertension documented [facility] encounter [facility]* Diagnosis Type 2 diabetes mellitus with complication (HCC)- Primary documented in [facility]* Diagnosis Type 2 diabetes mellitus with complication (HCC) documented in this encounter [facility] Assessments [...] FoundDocuments on File Type Date Recorded Patient Floorperson Expl anation ACP-Advance Directive ACP-Power of Heel Breaster Latest Code Status on File Code Status Date Activated Date Inactivated Comments Full Code 11/30/2016 6:33 AM 11/30/2016 11:59 AM Documents on File Type Date Recorded Patient Floorperson Expl anation ACP-Advance Directive ACP-Power of Heel Breaster Latest Code Status on File Code Status [...] Documents on File Type Date Recorded Patient Floorperson Expl anation Advance Directives and Living Will Power of Heel Breaster Healthcare Agents on File Name Relationship Healthcare Agent [facility] calvin Starks Spouse Primary Decision Maker Documents on File Type Date Recorded Patient Floorperson Expl anation Advance Directives and Livin g Will 03/07/2019 [id number] Documents on File Type Date Recorded Patient Floorperson Expl sapphire Advance Directives and Yusra hoffman Will 03/07/2019 [id number] History of Present Illness * Danay Can, PT - 03/19/2020 8:30 AM EST [facility] Outpatient Physical Therapy Evaluation Date: 03/19/2020 Patient: Tony Starks : 1945 Referring Practitioner: Dr. Pretty Moreland Referral Date : 03/14/20 Diagnosis: R shoulder IS, AC, OA Treatment Diagnosis: R shoulder pain Onset Date: 03/14/20 PT Insurance Information: [facility] Total # of Visits Approved: 18 Per Physician Order Total # of Visits to Date: 1 No Show: 0 Canceled Appointment: 0 Subjective Additional Pertinent Hx: Pt reports R shoulder was painful in the summer. Pt had an injection in November which lasted 3months, just recieved injection from Dr. Moreland on 03/14/20. Pt reports this AM pain [...] 45deg of IR to improve dressing kenrick. superintendent terminal goals Time Frame for senior living goals : 15 visits(POC Exp 04/30/19) superintendent terminal goal 1: Pt to score >51/80 on UEFS to improve ADL kenrick superintendent terminal goal 2: Pt to have ER of 55deg to improve upper body dressing. senior living goal 3: Pt to have 4/5 Horiz ABD strength to improve pt posture. superintendent terminal goal 4: Pt to have 4/5 ER strength without pain to improve ADL kenrick. Patient's Goal: Patient goals : Relieve his shoulder pain so he can complete ADLs and hobbies Timed Code Treatment Minutes: 0 Minutes Total Treatment Time: 45 Time In: 0835 Time Out: 0920 Danay Can, PT Date: 03/19/2020 documented in this encounter* Rosalino Singh, RETAINING ROOM CUTTER - 03/21/2020 10:30 AM EST [facility] Outpatient Physical Therapy Daily Note Date: 03/21/2020 Patient Name: Tony Starks : 1945 (74 y.o.) Referring Practitioner: Dr. Pretty Moreland Referral Date : 03/14/20 Diagnosis: R shoulder IS, AC, OA Treatment Diagnosis: R shoulder pain Onset Date: 03/14/20 PT Insurance Information: [facility] Total # of Visits Approved: 18 [...] 45deg of IR to improve dressing kenrick. Intermediate Goals - Time Frame for senior living goals : 15 visits(POC Exp 04/30/19) superintendent terminal goal 1: Pt to score >51/80 on UEFS to improve ADL ken[place] senior living goal 2: Pt to have ER of 55deg to improve upper body dressing. superintendent terminal goal 3: Pt to have 4/5 Horiz ABD strength to improve pt posture. senior living goal 4: Pt to have 4/5 ER strength without pain to improve ADL kenrick. Post Treatment Pain: 210 Time In: 1030 Time Out : 1110 Timed Code Treatment Minutes: 40 Minutes Total Treatment Time: 40 Minutes Rosalino Singh PTA Date: 03/21/2020 documented in this encounter* Danay Can, PT - 03/26/2020 10:15 AM EST [facility] Outpatient Physical Therapy Daily Note Date: 03/26/2020 Patient Name: Tony Starks : 1945 (74 y.o.) Referring Practitioner: Dr. Pretty Moreland Referral Date : 03/14/20 Diagnosis: R shoulder IS, AC, OA Treatment Diagnosis: R shoulder pain Onset Date: 03/14/20 PT Insurance Information: [facility] Total # of Visits Approved: 18 [...] 45deg of IR to improve dressing kenrick. Security Systems Integrator Goals - Time Frame for senior living [...] Albarado, PT - 03/27/2020 2:30 PM EST [facility] Outpatient Physical Therapy Daily Note Date: 03/27/2020 Patient Name: Tony Starks : 1945 (74 y.o.) Referring Practitioner: Dr. Pretty Moreland Referral Date : 03/14/20 Diagnosis: R shoulder IS, AC, OA Treatment Diagnosis: R shoulder pain Onset Date: 03/14/20 PT Insurance Information: [facility] Total # of Visits Approved: 18 [...] 45deg of IR to improve dressing kenrick. Security Systems Integrator Goals - Time Frame for senior living goals : 15 visits(POC Exp 04/30/19) senior living goal 1: Pt to score >51/80 on UEFS to improve ADL [place] senior living goal 2: Pt to have ER of 55deg to improve upper body dressing. superintendent terminal goal 3: Pt to have 4/5 Horiz ABD strength to improve pt posture. superintendent terminal goal 4: Pt to have 4/5 ER strength without pain to improve ADL kenrick. Post Treatment Pain: 2/10 Time In: 1440 Time Out : 1525 Timed Code Treatment Minutes: 40 Minutes Total Treatment Time: 40 Minutes JESSICA ALBARADO PT Date: 03/27/2020 documented in this encounter* Francisco RosalinoKULWANT - 04/09/2020 10:30 AM EST [facility] Outpatient Physical Therapy Daily Note Date: 04/09/2020 Patient Name: Tony Starks : 1945 (74 y.o.) Referring Practitioner: Dr. Pretty Moreland Referral Date : 03/14/20 Diagnosis: R shoulder IS, AC, OA Treatment Diagnosis: R shoulder pain Onset Date: 03/14/20 PT Insurance Information: [facility] Total # of Visits Approved: 18 [...] IR to improve dressing kenrick. - [facility] Security Systems Integrator Goals - Time Frame for senior living goals : 15 visits(POC Exp 04/30/19) superintendent terminal goal 1: Pt to score >51/80 on UEFS to improve ADL kenrick superintendent terminal goal 2: Pt to have ER of [...] Can, PT - 04/11/2020 10:30 AM EST [facility] Outpatient Physical Therapy Daily Note Date: 04/11/2020 Patient Name: Tony Starks : 1945 (74 y.o.) Referring Practitioner: Dr. Pretty Moreland Referral Date : 03/14/20 Diagnosis: R shoulder IS, AC, OA Treatment Diagnosis: R shoulder pain Onset Date: 03/14/20 PT Insurance Information: [facility] Total # of Visits Approved: 18 [...] reports he has an appointment with Dr. Moreland for his shoulder on 04/18/20. Pt progressed [...] IR to improve dressing kenrick. - [facility] Security Systems Integrator Goals - Time Frame for superintendent terminal goals : 15 visits(POC Exp 04/30/19) superintendent terminal goal 1: Pt to score >51/80 on UEFS to improve ADL [place] senior living goal 2: Pt to have ER of 55deg to improve upper body dressing. - MET senior living goal 3: Pt to have 4/5 Horiz ABD strength to improve pt posture. superintendent terminal goal 4: Pt to have 4/5 ER strength without pain to improve ADL kenrick. Post Treatment Pain: 2/10 Time In: 1030 Time Out : 1113 Timed Code Treatment Minutes: 43 Minutes Total Treatment Time: 43 Minutes Danay Can, PT Date: 04/11/2020 documented in this encounter* Benitez Bobo - 04/15/2020 10:30 AM EST [facility] Outpatient Physical Therapy Progress Report Date: 04/15/2020 Patient: Tony Starks : 1945 Referring Practitioner: Dr. Pretty Moreland Referral Date : 03/14/20 Diagnosis: R shoulder IS, AC, OA Treatment Diagnosis: R shoulder pain Onset Date: 03/14/20 PT Insurance Information: [facility] Total # of Visits Approved: 18 Per Physician Order Total # of Visits to Date: 9 No Show: 0 Canceled Appointment: 0 Assessment Pt reports R shoulder pain continues to fluctuate 4-610 based on activity level. Pt sleep continues [...] IR to improve dressing kenrick. - MET superintendent terminal goals Time Frame for superintendent terminal goals : 15 visits(POC Exp 04/30/19) superintendent terminal goal 1: Pt to score >51/80 on UEFS to improve ADL kenrick superintendent terminal goal 2: Pt to have ER of 55deg to improve upper body dressing. - MET superintendent terminal goal 3: Pt to have 4/5 Horiz ABD strength to improve pt posture. superintendent terminal goal 4: Pt to have 4/5 ER strength without pain to improve ADL kenrick. Benitez Bobo, SPTA/Directly Supervised By:Danay Can, PT Date: 04/15/2020 * Benitez Bobo - 04/15/2020 10:30 AM EST [facility] Outpatient Physical Therapy Daily Note Date: 04/15/2020 Patient Name: Tony Starks : 1945 (74 y.o.) Referring Practitioner: Dr. Pretty Moreland Referral Date : 03/14/20 Diagnosis: R shoulder IS, AC, OA Treatment Diagnosis: R shoulder pain Onset Date: 03/14/20 PT Insurance Information: [facility] Total # of Visits Approved: 18 [...] IR to improve dressing kenrick. - MET Intermediate Goals - Time Frame for superintendent terminal goals : 15 visits(POC Exp 04/30/19) superintendent terminal goal 1: Pt to score >51/80 on UEFS to improve ADL [facility] senior living goal 2: Pt to have ER of 55deg to improve upper body dressing. - MET senior living goal 3: Pt to have 4/5 Horiz ABD strength to improve pt posture. superintendent terminal goal 4: Pt to have 4/5 ER strength without pain to improve ADL kenrick. Post Treatment Pain: 2-3/10 Time In: 1028 Time Out : 1117 Timed Code Treatment Minutes: 39 Minutes Total Treatment Time: 39 Minutes PATRICK Castellon /Directly Supervised byDanay Can, BRUCE Date: 04/15/2020 documented in this encounter* Amanda Gillis, RN - 05/09/2020 4:44 PM EST Pt [...] to clarify patient's dressing discharge instructions. Dr. Moreland called and left a voicemail and a text message and [address] Kwaku Morales' nurse. Dr. Kwaku Morales' nurse does call back shprtly thereafter and informed that she will speak with Dr. Moreland to clarify and will call Tony with [...] Pt poor historian. documented in this encounter* Quynh Worthington, PT - 05/29/2020 11:00 AM EST [facility] Outpatient Physical Therapy Evaluation Date: 05/29/2020 Patient: Toyn Starks : 1945 Referring Practitioner: Dr. Pretty Moreland Referral Date : 05/23/20 Diagnosis: R shoulder scope, LHB debridment, SAD, RCR Treatment Diagnosis: R shoulder pain s/p RTC sx Onset Date: 05/09/20 PT Insurance Information: [facility] Total # of Visits Approved: 18 [...] increase PROM R shld flexion 145 degrees superintendent terminal goals Time Frame for senior living goals : 18 visits senior living goal 1: Pt to have improved functional activitities with UEFS score >50/80 superintendent terminal goal 2: Pt to demonstrate 135deg AROM shoulder flexion to improve ability to reach into cupboards superintendent terminal goal 3: Pt to demonstrate 4/5 shoulder horizontal abd strength to improve ADLs and posture. Patient's Goal: Patient goals : Improve mobility and strength to return to normal ADLs Timed Code Treatment Minutes: 10 Minutes Total Treatment Time: 45 Time In: 1105 Time Out: 1150 PATRICK Castellon/Directly Supervised By: Quynh Worthington, PT 05/29/2020 documented in this encounter* Quynh Worthington, PT - 06/05/2020 10:30 AM EST [facility] Outpatient Physical Therapy Daily Note Date: 06/05/2020 Patient Name: Tony Starks : 1945 (74 y.o.) Referring Practitioner: Dr. Pretty Moreland Referral Date : 05/23/20 Diagnosis: R shoulder scope, LHB debridment, SAD, RCR Treatment Diagnosis: R shoulder pain s/p RTC sx Onset Date: 05/09/20 PT Insurance Information: [facility] Total # of Visits Approved: 18 [...] increase PROM R shld flexion 145 degrees [employer]ator Goals - Time Frame for senior living goals : 18 visits senior living goal 1: Pt to have improved functional activitities with UEFS score >50/80 superintendent terminal goal 2: Pt to demonstrate 135deg AROM shoulder flexion to improve ability to reach into cupboards superintendent terminal goal 3: Pt to demonstrate 4/5 shoulder horizontal abd strength to improve ADLs and posture. Post Treatment Pain: 05/15 Time In: 10:30 Time Out : 11:00 Timed Code Treatment Minutes: 30 Minutes Total Treatment Time: 30 Minutes Quynh Worthington, PT Date: 06/05/2020 documented in this encounter* Quynh Worthington, PT - 06/07/2020 11:15 AM EST [facility] Outpatient Physical Therapy Daily Note Date: 06/07/2020 Patient Name: Tony Starks : 1945 (74 y.o.) Referring Practitioner: Dr. Pretty Moreland Referral Date : 05/23/20 Diagnosis: R shoulder scope, LHB debridment, SAD, RCR Treatment Diagnosis: R shoulder pain s/p RTC sx Onset Date: 05/09/20 PT Insurance Information: [facility] Total # of Visits Approved: 18 [...] increase PROM R shld flexion 145 degrees-Met [employer] Integrator Goals - Time Frame for senior living goals : 18 visits superintendent terminal goal 1: Pt to have improved functional [...] 06/07/2020 documented in this encounter* Nathalie Burnham D - 06/10/2020 10:30 AM EST Images from the original note were not included. [facility] Outpatient Physical Therapy Daily Note Date: 06/10/2020 Patient Name: Tony Starks : 1945 (74 y.o.) Referring Practitioner: Dr. Pretty Moreland Referral Date : 05/23/20 Diagnosis: R shoulder scope, LHB debridment, SAD, RCR Treatment Diagnosis: R shoulder pain s/p RTC sx Onset Date: 05/09/20 PT Insurance Information: [facility] Total # of Visits Approved: 18 Per Physician Order Total # of Visits to Date: 6 No Show: 0 Canceled Appointment: 0 Pre-Treatment Pain: 10 Assessment Assessment: Pt reports he is having [...] increase PROM R shld flexion 145 degrees-Met Intermediate Goals - Time Frame for senior living goals : 18 visits senior living goal 1: Pt to have improved functional activitities with UEFS score >50/80 superintendent terminal goal 2: Pt to demonstrate 135deg AROM shoulder flexion to improve ability to reach into cupboards superintendent terminal goal 3: Pt to demonstrate 4/5 shoulder horizontal abd strength to improve ADLs and posture. Post Treatment Pain: 2/10 Time In: 1030 Time Out : 1105 Timed Code Treatment Minutes: 35 Minutes Total Treatment Time: 35 Minutes Nathalie Burnham RETAINING ROOM CUTTER Date: 06/10/2020 documented in this encounter* Nathalie Burnham - 06/14/2020 11:15 AM EST Images from the original note were not included. [facility] Outpatient Physical Therapy Daily Note Date: 06/14/2020 Patient Name: Tony Starks : 1945 (74 y.o.) Referring Practitioner: Dr. Pretty Moreland Referral Date : 05/23/20 Diagnosis: R shoulder scope, LHB debridment, SAD, RCR Treatment Diagnosis: R shoulder pain s/p RTC sx Onset Date: 05/09/20 PT Insurance Information: [facility] Total # of Visits Approved: 18 [...] increase PROM R shld flexion 145 degrees-Met [employer] Integrator Goals - Time Frame for senior living [...] Total Treatment Time: 40 Minutes Nathalie Burnham RETAINING ROOM CUTTER Date: 06/14/2020 documented in this encounter* Quynh Worthington, PT - 06/19/2020 1:45 PM EDT Images from the original note were not included. [facility] Outpatient Physical Therapy Daily Note Date: 06/19/2020 Patient Name: Tony Starks : 1945 (74 y.o.) Referring Practitioner: Dr. Pretty Moreland Referral Date : 05/23/20 Diagnosis: R shoulder scope, LHB debridment, SAD, RCR Treatment Diagnosis: R shoulder pain s/p RTC sx Onset Date: 05/09/20 PT Insurance Information: [facility] Total # of Visits Approved: 18 [...] increase PROM R shld flexion 145 degrees-Met Intermediate Goals - Time Frame for senior living goals : 18 visits senior living goal 1: Pt to have improved functional activitities with UEFS score >50/80 senior living goal 2: Pt to demonstrate 135deg AROM shoulder flexion to improve ability to reach into cupboards-Met superintendent terminal goal 3: Pt to demonstrate 4/5 shoulder horizontal abd strength to improve ADLs and posture. Post Treatment Pain: 2/10 Time In: 13:45 Time Out : 14:15 Timed Code Treatment Minutes: 30 Minutes Total Treatment Time: 30 Minutes Quynh Worthington, PT Date: 06/19/2020 documented in this encounter* Sekou Alisia S - 06/21/2020 11:15 AM EDT Images from the original note were not included. [facility] Outpatient Physical Therapy Daily Note Date: 06/21/2020 Patient Name: Tony Starks : 1945 (74 y.o.) Referring Practitioner: Dr. Pretty Moreland Referral Date : 05/23/20 Diagnosis: R shoulder scope, LHB debridment, SAD, RCR Treatment Diagnosis: R shoulder pain s/p RTC sx Onset Date: 05/09/20 PT Insurance Information: [facility] Total # of Visits Approved: 18 [...] increase PROM R shld flexion 145 degrees-Met Intermediate Goals - Time Frame for superintendent terminal goals : 18 visits superintendent terminal goal 1: Pt to have improved functional activitities with UEFS score >50/80 superintendent terminal goal 2: Pt to demonstrate 135deg AROM shoulder flexion to improve ability to reach into cupboards-Met senior living goal 3: Pt to demonstrate 4/5 shoulder horizontal abd strength to improve ADLs and posture. Post Treatment Pain: 04/14 Time In: 1115 Time Out : 1154 Timed Code Treatment Minutes: 39 Minutes Total Treatment Time: 39 Minutes Alisia S Sekou,KULWANT Date: 06/21/2020 documented in this encounter* Alisia Sapp S - 06/24/2020 1:45 PM EDT Images from the original note were not included. [facility] Outpatient Physical Therapy Daily Note Date: 06/24/2020 Patient Name: Tony Starks : 1945 (75 y.o.) Referring Practitioner: Dr. Pretty Moreland Referral Date : 05/23/20 Diagnosis: R shoulder scope, LHB debridment, SAD, RCR Treatment Diagnosis: R shoulder pain s/p RTC sx Onset Date: 05/09/20 PT Insurance Information: [facility] Total # of Visits Approved: 18 Per Physician Order Total # of Visits to Date: 12 Pre-Treatment Pain: 210 Assessment Assessment: Patient rates pain prior to session as 2/10. States he was a little sore following progression of exercises last session. Continued with exercises today followed by PROM to R shoulder. R shoulder horizontal ABD strength 3+/5. Patient to Dr. Moreland on 06/27/20. Chart Reviewed: Yes Plan Plan: [...] increase PROM R shld flexion 145 degrees-Met Intermediate Goals - Time Frame for senior living goals : 18 visits senior living goal 1: Pt to have improved functional activitities with UEFS score >50/80 superintendent terminal goal 2: Pt to demonstrate 135deg AROM shoulder flexion to improve ability to reach into cupboards-Met senior living goal 3: Pt to demonstrate 4/5 shoulder horizontal abd strength to improve ADLs and posture. Post Treatment Pain: 1-2 Time In: 1341 Time Out : 1422 Timed Code Treatment Minutes: 43 Minutes Total Treatment Time: 43 Minutes Alisia SappRETAINING ROOM CUTTER Date: 06/24/2020 documented in this encounter* Quynh Worthington, PT - 06/26/2020 11:15 AM EDT Images from the original note were not included. [facility] Outpatient Physical Therapy Progress Report Date: 06/26/2020 Patient: Tony Starks : 1945 Referring Practitioner: Dr. Pretty Moreland Referral Date : 05/23/20 Diagnosis: R shoulder scope, LHB debridment, SAD, RCR Treatment Diagnosis: R shoulder pain s/p RTC sx Onset Date: 05/09/20 PT Insurance Information: [facility] Total # of Visits Approved: 18 [...] increase PROM R shld flexion 145 degrees-Met superintendent terminal goals Time Frame for senior living goals : 18 visits superintendent terminal goal 1: Pt to have improved functional activitities with UEFS score >50/80 superintendent terminal goal 2: Pt to demonstrate 135deg AROM shoulder flexion to improve ability to reach into cupboards-Met senior living goal 3: Pt to demonstrate 4/5 shoulder horizontal abd strength to improve ADLs and posture. Nathalie Burnham RETAINING ROOM CUTTER Date: 06/26/2020 * Nathalie Burnham - 06/26/2020 11:15 AM EDT Images from the original note were not included. [facility] Outpatient Physical Therapy Daily Note Date: 06/26/2020 Patient Name: Tony Starks : 1945 (75 y.o.) Referring Practitioner: Dr. Pretty Moreland Referral Date : 05/23/20 Diagnosis: R shoulder scope, LHB debridment, SAD, RCR Treatment Diagnosis: R shoulder pain s/p RTC sx Onset Date: 05/09/20 PT Insurance Information: [facility] Total # of Visits Approved: 18 [...] increase PROM R shld flexion 145 degrees-Met Intermediate Goals - Time Frame for senior living goals : 18 visits senior living goal 1: Pt to have improved functional activitities with UEFS score >50/80 superintendent terminal goal 2: Pt to demonstrate 135deg AROM shoulder flexion to improve ability to reach into cupboards-Met senior living goal 3: Pt to demonstrate 4/5 shoulder horizontal abd strength to improve ADLs and posture. Post Treatment Pain: 05/15 Time In: 1112 Time Out : 1150 Timed Code Treatment Minutes: 38 Minutes Total Treatment Time: 38 Minutes Nathalie Burnham RETAINING ROOM CUTTER Date: 06/26/2020 documented in this encounter* Alisia Sapp - 07/01/2020 11:15 AM EDT Images from the original note were not included. [facility] Outpatient Physical Therapy Daily Note Date: 07/01/2020 Patient Name: Tony Starks : 1945 (75 y.o.) Referring Practitioner: Dr. Pretty Moreland Referral Date : 05/23/20 Diagnosis: R shoulder scope, LHB debridment, SAD, RCR Treatment Diagnosis: R shoulder pain s/p RTC sx Onset Date: 05/09/20 PT Insurance Information: [facility] Total # of Visits Approved: 18 [...] increase PROM R shld flexion 145 degrees-Met Intermediate Goals - Time Frame for superintendent terminal goals : 18 visits superintendent terminal goal 1: Pt to have improved functional activitities with UEFS score >50/80 superintendent terminal goal 2: Pt to demonstrate 135deg AROM shoulder flexion to improve ability to reach into cupboards-Met superintendent terminal goal 3: Pt to demonstrate 4/5 shoulder horizontal abd strength to improve ADLs and posture. Post Treatment Pain: 0/10 Time In: 1114 Time Out : 1153 Timed Code Treatment Minutes: 39 Minutes Total Treatment Time: 39 Minutes Alisia Sapp ,RETAINING ROOM CUTTER Date: 07/01/2020 documented in this encounter* Quynh Worthington, PT - 07/03/2020 11:15 AM EDT Images from the original note were not included. [facility] Outpatient Physical Therapy Daily Note Date: 07/03/2020 Patient Name: Tony Starks : 1945 (75 y.o.) Referring Practitioner: Dr. Pretty Moreland Referral Date : 05/23/20 Diagnosis: R shoulder scope, LHB debridment, SAD, RCR Treatment Diagnosis: R shoulder pain s/p RTC sx Onset Date: 05/09/20 PT Insurance Information: [facility] Total # of Visits Approved: 18 [...] increase PROM R shld flexion 145 degrees-Met [employer] Integrator Goals - Time Frame for senior living goals : 18 visits senior living goal 1: Pt to have improved functional activitities with UEFS score >50/80 superintendent terminal goal 2: Pt to demonstrate 135deg AROM shoulder flexion to improve ability to reach into cupboards-Met superintendent terminal goal 3: Pt to demonstrate 4/5 shoulder horizontal abd strength to improve ADLs and posture.-Met Post Treatment Pain: 2/10 Time In: 11:15 Time Out : 11:55 Timed Code Treatment Minutes: 40 Minutes Total Treatment Time: 40 Minutes Quynh Worthington PT Date: 07/03/2020 documented in this encounter* Alisia Sapp - 07/15/2020 11:15 AM EDT Images from the original note were not included. [facility] Outpatient Physical Therapy Daily Note Date: 07/15/2020 Patient Name: Tony Starks : 1945 (75 y.o.) Referring Practitioner: Dr. Pretty Moreland Referral Date : 05/23/20 Diagnosis: R shoulder scope, LHB debridment, SAD, RCR Treatment Diagnosis: R shoulder pain s/p RTC sx Onset Date: 05/09/20 PT Insurance Information: [facility] Total # of Visits Approved: 18 [...] increase PROM R shld flexion 145 degrees-Met Intermediate Goals - Time Frame for superintendent terminal goals : 18 visits superintendent terminal goal 1: Pt to have improved functional activitities with UEFS score >50/80-MET superintendent terminal goal 2: Pt to demonstrate 135deg AROM shoulder flexion to improve ability to reach into cupboards-Met senior living goal 3: Pt to demonstrate 4/5 shoulder horizontal abd strength to improve ADLs and posture.-Met Post Treatment Pain: 0/10 Time In: 1115 Time Out : 1154 Timed Code Treatment Minutes: 39 Minutes Total Treatment Time: 39 Minutes Alisia Sapp,RETAINING ROOM CUTTER Date: 07/15/2020 documented in this encounter Reason for Referral Status Reason Specialty Diagnoses / Procedures Referre d By Contact Referred To Contact Closed Radiology Diagnoses Impingement syndrome of right shoulder Procedures MRI SHOULDER RIGHT WO CONTRAST Pretty Moreland, DO [address] [place] [address] [facility] [address] [place] [address] Specialty Diagnoses / Procedures Referred By Kia t Referred To Contact Cardiology Diagnoses Pre-op testing Procedures EKG 12 Lead Back, MD Brian [address] [place] [address] Referral ID Status Reason Start Date Expiration Date Visits Re quested Visits Authorized [id number] Open 04/20/2022 04/20/2023 1 1 Discharge Instructions [...] meditation. You may begin using Tylenol or [id number] Ibuprofen or Motrin for pain should you [...] from the original note were not included. [facility] Outpatient Physical Therapy Discharge Summary Patient: Tony Starks : 1945 Referring Practitioner: Dr. Pretty Moreland Diagnosis: R shoulder scope, LHB debridment, SAD, RCR Date Treatment Initiated: 05/29/20 Date of Last Treatment: 07/15/20 PT Visit Information Onset Date: 05/09/20 PT Insurance Information: [facility] Total # of Visits Approved: 18 Total # of Visits to Date: 18 No Show: 0 Canceled Appointment: 0 Frequency/Duration Days: 3 times per week Weeks: 6 weeks Treatment Received Patient Education/HEP, Therapeutic Exercise, Manual Therapy: Myofacial Release/Cupping and Manual Therapy: Mobilization/Manipulation Pain Level: 1 Assessment Assessment: Pain in shoulder is 04/14. AROM R shld WFL all planes. Strength [...] Procedures MRI SHOULDER RIGHT WO CONTRAST Pretty Moreland DO [address] [place] [address] [facility] [address] [place] [address] Status Reason Specialty Diagnoses / Procedures Referre d By Contact Referred To Contact Diagnoses Unspecified rotator cuff tear or rupture of right shoulder, not specified as traumatic RIGHT SHOULDER ROTATOR CUFF TEAR....BICEP TENDONITIS Procedures MS SHLDR ARTHROSCOP,SURG,W/ROTAT CUFF REPR RIGHT SHOULDER ARTHROSCOPY PROBABLE ROTATOR CUFF REPAIR... LONG HEAD BICEPS TENODESIS Pretty Moreland DO [address] [place] [address] [facility] Reason Comments Follow-up Reason Onset Date Comments refill atorvastatin 01/10/2024 Reason Comments Med Refill Reason Comments Follow-up Wants to discuss blo od sugars. Noticed since off Jardiance his blood sugars have been ranging 97-265 Reason Onset Date Comments Med Refill 12/09/2023 Reason Onset Date Comments refills 12/13/2023 Reason Comments Skin Check Reason Onset Date Comments FYI on left shoulder 04/14/2024 Reason Comments Medicare Annual Wellness Visit Subsequen t Reason Comments Pain Reason Onset Date Comments medication refill 06/05/2024 Reason Onset Date Comments Med Refill 07/10/2024 Reason Comments Pain Reason Onset Date Comments Med Refill 08/30/2024 Reason Comments 4 months ago Reason Onset Date Comments Med Refill 09/19/2024 Reason Onset Date Comments refill Omeprazole 12/05/2024 Reason Onset Date Comments Med Refill 12/18/2024 Ordered Prescriptions (unrec ognized section and content) [...] Care Teams (unrecognized sec tion and content) Manager E Commerce Relationship Specialty Start Date End Date Daniel Pop DO [address] [place] [address] PCP - General Family Medicine 11/24/16 Manager E Commerce Relationship Specialty Start Date End Date Daniel Pop DO [address] [place], [place] [id number] PCP - General Family Medicine 10/14/22 Laya Plata DIRECTOR PRODUCT [address] [place], [place] [id number] PCP - ACO Reach 01/04/24 Laya Plata DIRECTOR PRODUCT [address] [place] [address] Nurse Practitioner Family Medicine 10/14/22 Manager E Commerce Relationship Specialty Start Date End Date Daniel Pop DO [address] [place] [address] PCP - General Family Medicine 10/14/22 Laya Plata, DIRECTOR PRODUCT [address] [place] [address] PCP - ACO Reach 01/04/24 Laya Plata, DIRECTOR PRODUCT [address] [place] [address] Nurse Practitioner Family Medicine 10/14/22 Manager E Commerce Relationship Specialty Start Date End Date Daniel Pop DO [address] [place] [address] PCP - General Family Medicine 10/14/22 Laya Plata, DIRECTOR PRODUCT [address] [place] [address] PCP - ACO Reach 01/04/24 Laya Plata, DIRECTOR PRODUCT [address] [place] [address] Nurse Practitioner Family Medicine 10/14/22 Manager E Commerce Relationship Specialty Start Date End Date Daniel Pop DO [address] [place] [address] PCP - General Family Medicine 10/14/22 Laya Plata, DIRECTOR PRODUCT [address] [place] [address] PCP - ACO Reach 01/04/24 Laya Plata, DIRECTOR PRODUCT [address] [place] [address] Nurse Practitioner Family Medicine 10/14/22 Manager E Commerce Relationship Specialty Start Date End Date Daniel Pop DO [address] [place] [address] PCP - General Family Medicine 10/14/22 Laya Plata, DIRECTOR PRODUCT [address] [place] [address] PCP - ACO Reach 01/04/24 Laya Plata DIRECTOR PRODUCT [address] [place] [address] Nurse Practitioner Family Medicine 10/14/22 Manager E Commerce Relationship Specialty Start Date End Date Daniel Pop DO [address] [place] [address] PCP - General Family Medicine 10/14/22 Daniel Pop DO [address] [place] [address] PCP - ACO Reach 06/04/23 Laya Plata, DIRECTOR PRODUCT [address] [place] [address] Nurse Practitioner Family Medicine 10/14/22 Manager E Commerce Relationship Specialty Start Date End Date Daniel Ppo DO [address] [place] [address] PCP - General Family Medicine 10/14/22 Daniel Pop DO [address] [place] [address] PCP - ACO Reach 06/04/23 Laya Plata, DIRECTOR PRODUCT [address] [place] [address] Nurse Practitioner Family Medicine 10/14/22 Manager E Commerce Relationship Specialty Start Date End Date Daniel Pop DO [address] [place] [address] PCP - General Family Medicine 10/14/22 Daniel Pop DO [address] [place] [address] PCP - ACO Reach 06/04/23 Laya Plata, DIRECTOR PRODUCT [address] [place] [address] Nurse Practitioner Family Medicine 10/14/22 Manager E Commerce Relationship Specialty Start Date End Date Daniel Pop DO [address] [place] [address] PCP - General Family Medicine 10/14/22 Daniel Pop DO [address] [place] [address] PCP - ACO Reach 06/04/23 Laya Plata, DIRECTOR PRODUCT [address] [place] [address] Nurse Practitioner Family Medicine 10/14/22 Manager E Commerce Relationship Specialty Start Date End Date Daniel Pop DO [address] [place] [address] PCP - General Family Medicine 10/14/22 Daniel Pop DO [address] [place] [address] PCP - ACO Reach 06/04/23 Laya Plata, DIRECTOR PRODUCT [address] [place] [address] Nurse Practitioner Family Medicine 10/14/22 Manager E Commerce Relationship Specialty Start Date End Date Daniel Pop DO [address] [place], [place] [id number] PCP - General Family Medicine 10/14/22 Laya Plata, DIRECTOR PRODUCT [address] [place] [address] PCP - ACO Reach 01/04/24 Laya Plata, DIRECTOR PRODUCT [address] [place] [address] Nurse Practitioner Family Medicine 10/14/22 Manager E Commerce Relationship Specialty Start Date End Date Daniel Pop DO [address] [place] [address] PCP - General Family Medicine 10/14/22 Laya Plata, DIRECTOR PRODUCT [address] [place] [address] PCP - ACO Reach 01/04/24 Laya Plata, DIRECTOR PRODUCT [address] [place] [address] Nurse Practitioner Family Medicine 10/14/22 Manager E Commerce Relationship Specialty Start Date End Date Daniel Pop DO [address] [place] [address] PCP - General Family Medicine 10/14/22 Laya Plata, DIRECTOR PRODUCT [address] [place] [address] PCP - ACO Reach 01/04/24 Laya Plata, DIRECTOR PRODUCT [address] [place] [address] Nurse Practitioner Family Medicine 10/14/22 Manager E Commerce Relationship Specialty Start Date End Date Daniel Pop DO [address] [place] [address] PCP - General Family Medicine 10/14/22 Laya Plata, DIRECTOR PRODUCT [address] [place] [address] PCP - ACO Reach 01/04/24 Laya Plata, DIRECTOR PRODUCT [address] [place] [address] Nurse Practitioner Family Medicine 10/14/22 Manager E Commerce Relationship Specialty Start Date End Date Daniel Pop DO [address] [place] [address] PCP - General Family Medicine 10/14/22 Laya Plata, DIRECTOR PRODUCT [address] [place] [address] PCP - ACO Reach 01/04/24 Laya Plata, DIRECTOR PRODUCT [address] [place] [address] Nurse Practitioner Family Medicine 10/14/22 Manager E Commerce Relationship Specialty Start Date End Date Daniel Pop DO [address] [place] [address] PCP - General Family Medicine 10/14/22 Laya Plata, DIRECTOR PRODUCT [address] [place] [address] PCP - ACO Reach 01/04/24 Laya Plata, DIRECTOR PRODUCT [address] [place] [address] Nurse Practitioner Family Medicine 10/14/22 Manager E Commerce Relationship Specialty Start Date End Date Daniel Pop DO [address] [place] [address] PCP - General Family Medicine 10/14/22 Laya Plata, DIRECTOR PRODUCT [address] [place] [address] PCP - ACO Reach 01/04/24 Laya Plata, DIRECTOR PRODUCT [address] [place] [address] Nurse Practitioner Family Medicine 10/14/22 Manager E Commerce Relationship Specialty Start Date End Date Daniel Pop DO [address] [place] [address] PCP - General Family Medicine 10/14/22 Laya Plata, DIRECTOR PRODUCT [address] [place] [address] PCP - ACO Reach 01/04/24 Laya Plata, DIRECTOR PRODUCT [address] [place] [address] Nurse Practitioner Family Medicine 10/14/22 Manager E Commerce Relationship Specialty Start Date End Date Daniel Pop DO [address] [place] [address] PCP - General Family Medicine 10/14/22 Laya Plata, DIRECTOR PRODUCT [address] [place] [address] PCP - ACO Reach 01/04/24 Laya Plata, DIRECTOR PRODUCT [address] [place] [address] Nurse Practitioner Family Medicine 10/14/22 Manager E Commerce Relationship Specialty Start Date End Date Daniel Pop DO [address] [place] [address] PCP - General Family Medicine 10/14/22 Laya Plata, DIRECTOR PRODUCT [address] [place] [address] PCP - ACO Reach 01/04/24 Laya Plata, DIRECTOR PRODUCT [address] [place] [address] Nurse Practitioner Family Medicine 10/14/22 Manager E Commerce Relationship Specialty Start Date End Date Daniel Pop DO [address] [place] [address] PCP - General Family Medicine 10/14/22 Laya Plata, DIRECTOR PRODUCT [address] [place] [address] PCP - ACO Reach 01/04/24 Laya Plata DIRECTOR PRODUCT [address] [place] [address] Nurse Practitioner Family Medicine 10/14/22 Manager E Commerce Relationship Specialty Start Date End Date Daniel Pop DO [address] [place], [place] [id number] PCP - General Family Medicine 10/14/22 Laya Plata, DIRECTOR PRODUCT [address] [place] [address] PCP - ACO Reach 01/04/24 Laya Plata DIRECTOR PRODUCT [address] [place], [place] [id number] Nurse Practitioner Family Medicine 10/14/22 (unrecognized sect ion and content) No Status Records FoundNo Status Records FoundNo Status Records FoundNo Status Records Found INFORMATION SOURCE (unrecogn ized section and content) DATE CREATED AUTHOR 04/29/2022 [facility] DATE CREATED AUTHOR AUTHOR'S ORGANIZ ATION 02/03/2023 [facility] DATE CREATED AUTHOR AUTHOR'S ORGANIZ ATION 06/19/2023 [facility] DATE CREATED AUTHOR AUTHOR'S ORGANIZ ATION 01/08/2025 [facility] FOR RECORDS PERTAINING TO PATIENTS WHO [...] BE BASED ON THE PRIMARY CLINICAL RECORDS. [facility] [facility]. provides no warranty or guarantee of the accuracy or completeness of information in this document.
--- NOTE | 2025-01-11 10:56 | PM.CN ---
Consult Note: HPI Data of Consult Patient: known to practice within the last 3 years Consult date: 01/11/25 Requesting Physician: Fariha Meehan NP Primary Care Provider: Laya Thompson RN, SEARCH SPECIALIST Consult Narrative Reason for consult: f/u Narrative: Tony Starks an 79 year old male presents for evaluation and management of chronic left shoulder pain. currently following with orthopedic surgery for evaluation of left shoulder pain, they have recommended he trial the suprascapular nerve block in consideration of RFA over surgical intervention. pain today 8/10 sharp increasing with ROM and activity. pt reports he has failed to benefit from PT, heat, ice, tylenol, and NSAIDs. utilizing tylenol #3 BID PRN for moderate to severe pain with moderate relief without side effects. cc:: CC: Fariha Meehan NP Review of Systems ROS Status of ROS 10 or more systems reviewed and unremarkable except as noted in history and below Musculoskeletal Reports: joint pain PFSH PFSH Medical History (Updated 03/01/24 @ 10:40 by Shannon Pérez) Osteoarthritis ?M19.90 - Unspecified osteoarthritis, unspecified site (ICD-10) Low back pain ?M54.50 - Low back pain, unspecified (ICD-10) Hearing deficit ?H91.90 - Unspecified hearing loss, unspecified ear (ICD-10) High cholesterol ?E78.00 - Pure hypercholesterolemia, unspecified (ICD-10) Hypertension ?I10 - Essential (primary) hypertension (ICD-10) Diabetes 1.5, managed as type 2 ?E13.9 - Other specified diabetes mellitus without complications (ICD-10) Sleep apnea ?G47.30 - Sleep apnea, unspecified (ICD-10) Surgical History (Updated 03/01/24 @ 10:40 by Shannon Pérez) History of uvulopalatopharyngoplasty ?Z98.890 - Other specified postprocedural states (ICD-10) H/O arthroscopic knee surgery ?Z98.890 - Other specified postprocedural states (ICD-10) H/O nasal septoplasty ?Z98.890 - Other specified postprocedural states (ICD-10) Meds Home Medications and Allergies Home Medications ?Medication ?Instructions ?Recorded ?Confirmed ?Type acetaminophen 650 mg 650 mg PO Q12H PRN fever or pain 01/27/23 02/22/24 History tablet,extended release (8 Hour Pain Reliever) apple cider vinegar 600 mg capsule 600 mg PO TID 01/27/23 02/22/24 History aspirin 81 mg tablet,delayed 81 mg PO DAILY 01/27/23 02/22/24 History release (Adult Aspirin Regimen) atenolol 50 mg tablet 50 mg PO DAILY 01/27/23 02/22/24 History atorvastatin 40 mg tablet 40 mg PO DAILY 01/27/23 02/22/24 History cholecalciferol (vitamin D3) 50 50 mcg PO DAILY 01/27/23 02/22/24 History mcg (2,000 unit) tablet (Vitamin D3) famotidine 20 mg tablet 20 mg PO BID 01/27/23 01/27/23 History fluticasone propionate 50 1 spray intranasal BID PRN allergy 01/27/23 02/22/24 History mcg/actuation nasal symptoms spray,suspension (24 Hour Allergy Relief) hydrochlorothiazide 25 mg tablet 25 mg PO DAILY 01/27/23 02/22/24 History insulin degludec 100 unit/mL (3 64 unit subcut DAILY 01/27/23 02/22/24 History mL) subcutaneous pen (Tresiba FlexTouch U-100 insulin) lisinopril 20 mg tablet 20 mg PO BID 01/27/23 02/22/24 History loratadine 10 mg capsule 10 mg PO DAILY 01/27/23 02/22/24 History melatonin 10 mg capsule 10 mg PO DAILY 01/27/23 02/22/24 History multivitamin (Daily Multi-Vitamin 1 tab PO DAILY 01/27/23 02/22/24 History tablet) omeprazole 20 mg capsule,delayed 20 mg PO DAILY 01/27/23 02/22/24 History release pyridoxine (vitamin B6) 100 mg 100 mg PO DAILY 01/27/23 02/22/24 History tablet zinc 25 mg tablet 25 mg PO DAILY 01/27/23 02/22/24 History tramadol 50 mg tablet 50 mg PO BID PRN pain #60 tabs 03/09/23 02/22/24 Rx ascorbic acid (vitamin C) 500 mg mg PO 03/01/24 History capsule bexagliflozin 20 mg tablet 20 mg PO DAILY 03/01/24 03/01/24 History ([place]) diphenhydramine 25 1 tab PO QPM PRN pain 03/01/24 03/01/24 History mg-acetaminophen 500 mg tablet (Tylenol PM Extra Strength) sitagliptin phosphate 100 mg 100 mg PO DAILY 03/01/24 03/01/24 History tablet (Januvia) acetaminophen 300 mg-codeine 30 mg 1 tab PO BID PRN pain #60 tabs 04/11/24 Rx tablet acetaminophen 300 mg-codeine 30 mg 1 tab PO BID PRN pain #60 tabs 10/11/24 Rx tablet Allergies Allergy/AdvReac Type Severity Reaction Status Date / Time No Known Drug Allergies Allergy Verified 01/27/23 10:47 Exam Constitutional Documenting provider has reviewed patient's vital signs: yes Common normals: no apparent distress, oriented x3, healthy appearing, alert and well nourished General appearance: cooperative HENMT Common normals: normocephalic, hearing grossly normal bilaterally and moist oral mucous membranes Head and scalp: normocephalic Eye Common normals: PERRL Pupil: PERRL Neck & C-Spine Common normals: full ROM General: normal visual inspection Other: no pain with rotation, flexion, extension. No pain with palpation. Denies numbness/tingling/weakness in bilateral arms or hands. No tenderness over left suprascapular or axillary nerve pattern. Chest Common normals: inspection of chest normal Respiratory Common normals: normal respiratory effort, no retractions and no use of accessory muscles Extremity Left upper extremity: shoulder joint (no edema. ROM mildly impaired. ) Other: pain over left suprascapular nerve and left AC joint. positive empty can, posterior lift off, and apleys scratch maneuver. strength 4/5 in LUE and 5/5 in RUE Neuro Common normals: oriented x3, CN's II-XII intact bilaterally, moves all extremities, no focal motor deficits, no sensory deficits noted and deep tendon reflexes 2+ bilaterally Sensorium/orientation: alert Motor exam: no movement abnormalities noted Psych Common normals: mental status grossly normal, thought process normal, cooperative, affect normal, speech normal and activity/motor behavior normal Speech: normal speech Thought process: normal thought process Assessment and Plan Assessment and Plan (1) Primary osteoarthritis, left shoulder: (2) Left shoulder pain: (3) Chronic use of opiate drug for therapeutic purpose: Assessment and Plan: I feel these medications are improving the patient's quality of life and allow them to tolerate activities of daily living as well as participate in recreational activity.? The patient does not report intolerable side effects. The patient is NOT opioid naive and non-pharmacologic and non-opioid treatment has failed to significantly relieve the patient's pain and improve functionality. The patient has a diagnosis that is related to a somatic or visceral pain etiology. ? ?? I reviewed with the patient the potential risks and side effects with the use of? opioid medications including but not limited to respiratory depression,? sedation, and even . I advised the patient to avoid the use of any other? sedation substances including alcohol, THC, and benzodiazepines while? taking opioid medications due to the risk of compounding side effects and? detrimental outcomes. within the last 12 months I have reviewed the [employer], pain treatment agreement and urine drug screen.? ?? A drug screen was completed within the last year, and no aberrancies were noted regarding their use of controlled substances. The patient understands they are subject to the terms and conditions of the pain contract that they have signed. ? ?? I have checked an [place]AR[place] report on this patient today and there are no aberrancies noted in the prescribing history.? (4) Unspecified mononeuropathy of right lower limb: Plan left suprascapular axillary nerve block under fluoroscopy in consideration of RFA for left shoulder pain/oa continue tylenol #3 BID PRN moderate to severe pain, risks vs benefits reviewed continue HEP as tolerated continue f/u with orthopedics f/u after nerve block
== END 2025-01-11 10:24 | disposition home or self-care (01) ==
LOC: PM 10:24
PROVIDERS: PCP Nurse Practitioner; Visit Provider Nurse Practitioner
DX: M19.012 Primary osteoarthritis, left shoulder (principal); M25.512 Pain in left shoulder; Z79.891 Long term (current) use of opiate analgesic; G57.91 Unspecified mononeuropathy of right lower limb
CPT/HCPCS: G0463

== ENCOUNTER 2025-01-22 10:13 | Day surgery (SDC) | payer MEDICARE, OTHER, SELFPAY ==
--- OUTSIDE RECORDS SUMMARY | 2013-07-17 11:00 | XMS_ITS | Encounter Summary ---
Author Organization [facility] Address [address], [address] [place] [address] Care Team Providers Care Clinical Training Specialist Name Role Phone Apoorva Guillen MD Primary Care Provider [phone] Encounter Details Date Type Department Care Team (Late st Contact Info) Description 07/17/2013 11:00 AM EDT Hospital Encounter [facility] Physical Therapy [address] [place] [address] Igor Gagnon MD [address] [place] [address] [id number] Tanmay Dexter, PT [address] [place] [address] Social History Tobacco Use Types Packs/Day Years Used Date Smoking Tobacco: Former Cigarettes 0.5 25 0 11/30/1981 - 11/30/2006 Pipe Smokeless Tobacco: Former Snuff, Chew Alcohol Use Standard Drinks/Week Comments Yes 9 (1 standard drink = 0.6 oz pur e alcohol) states occassionally Overall Financial Resource Strain (CARDIA) Answe r Date Recorded How hard is it for you to pa y for the very basics like food, housing, medical care, and heating? Not very hard 06/04/2022 PHQ-2 Answer Date Recorded PHQ-9 Total Score 0 04/20/2022 Hunger Vital Sign Answer Date Recorded Within the past 12 months, y ou worried that your food would run out before you got the money to buy more. Never true 06/05/19 23 Within the past 12 months, t he food you bought just didn't last and you didn't have money to get more. Never true 06/04/2022 PRAPARE - Transportation Answer Date Re corded Lack of Transportation (Medical) Not on file 06/04/2022 In the past 12 months, has l ack of transportation kept you from meetings, work, or from getting things needed for daily living? No 06/04/2022 Housing Stability Vital Sign Answer Karthik e Recorded Unable to Pay for Housing in the Last Year Not o n file 06/04/2022 Number of Places Lived in the Last Year Not on f ile 06/04/2022 In the last 12 months, was t here a time when you did not have a steady place to sleep or slept in a retirement (including now)? No 06/04/2022 Food Insecurity Answer Date Recorded Within the past 12 months, y ou worried that your food would run out before you got the money to buy more. 1 06/04/2022 Within the past 12 months, t he food you bought just didn't last and you didn't have money to get more. 1 06/04/2022 Sex and Gender Information Value Date Recorded Sex Assigned at Not on file Legal Sex Male 3:32 PM EST Gender Identity Not on file Sexual Orientation Not on file COVID-19 Exposure Response Date Recorded In the last 10 days, have yo u been in contact with someone who was confirmed or suspected to have Coronavirus/COVID-19? No / Unsure 05/04/2022 6:31 AM EST documented as of this encounter Progress Notes * Tanmay Dexter, PT - 07/17/2013 11:52 AM EDT Images from the original note were not included. [facility] Outpatient Physical Therapy Daily Note Date: 07/17/2013 Patient Name: Yusuf Starks : 1945 (68 y.o.) Referring Practitioner: Dr Gagnon Referral Date : 04/14/13 Diagnosis: Right Hip Pain Onset Date: 04/05/13 Total # of Visits Approved: 7 Per Physician Order Total # of Visits to Date: 2 No Show: 0 Canceled Appointment: 0 Pre-Treatment Pain: 06/12 Assessment Assessment: improved pain to /10 after treatment today. 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 1: 0-2/10 right hip pain with ADL's assisted goal 2: 0-2/10 right hip pain with walking / standing activities assisted goal 3: Improved lower extrmeity strength / ferry terminal agent goal 4: Improve hip and spine mobility to be able to bend forward Post Treatment Pain: 04/14 Time In: 1100 Time Out: 1145 Tanmay Dexter Therapy License Number: PT Date: 07/17/2013 documented in this encounter Plan of Treatment Not on file documented as of this encounter Visit Diagnoses Not on filedocumented in this encounter Care Teams Clinical Training Specialist Relationship Specialty Start Date End Date Apoorva Guillen MD [address] [place] [address] PCP - General 07/07/12 11/23/16 documented as of this encounter
--- OUTSIDE RECORDS SUMMARY | 2025-01-22 10:17 | XMS_ITS ---
Author Organization [facility] Address [address] [place] [address] Care Team Providers Care Cat Tender Name Role Phone Colby Whitfield DO Primary Care Provider [phone] Laya Thompson METALLOGRAPHER Unavailable Laya Thompson METALLOGRAPHER Unavailable Chronic Care Management (CCM) Status:Enrolled (Active) Start date:04/05/2022 Enrollment date:04/05/2022 Case Team Name Relationship Phone Haven Schmidt LPN(Responsible Staff) Clinical A dvocate [phone] Continued Care and Services Coordination
--- OUTSIDE RECORDS SUMMARY | 2025-01-22 10:18 | XMS_ITS | Encounter Summary ---
Author Organization [facility] Address [address], [address] [place] [address] Care Team Providers Care Wire Saw Operator Name Role Phone Colby Whitfield DO Primary Care Provider [phone] Encounter Details Date Type Department Care Team (Latest Contact Info) Description 06/14/2023 Transcribe Orders [facility] [address] [place] [id number] Laya Thompson, LOBBY ATTENDANT - RESIDENTIAL TEAM LEADER [address] [place] [phone] Muscle cramp (Primary Dx); Symptoms involving cardiovascular system Social History Tobacco Use Types Packs/Day Years [...] place to sleep or slept in a long term (including now)? No 06/04/2022 Food Insecurity Answer [...] on file Sexual Orientation Not on file documented as of this encounter Plan of Treatment Not on file documented as of this encounter Visit Diagnoses Diagnosis Muscle cramp- Primary Cramp of limb Symptoms involving cardiovascular system Other symptoms involving cardiovascular system documented in this encounter Additional Health Concerns Assessment Noted Time A fall risk assessment has been complete d for the patient 04/20/2022 11:06 AM EST A Body Mass Index follow-up plan has been documented for the patient 06/04/2022 10:47 AM EST documented as of this encounter Care Teams Wire Saw Operator Relationship Specialty Start Date End Date Colby Whitfield DO [address] [place], [place] [id number] PCP - General Family Medicine 11/24/16 documented as of this encounter
--- OUTSIDE RECORDS SUMMARY | 2025-01-22 10:18 | XMS_ITS | Encounter Summary ---
Author Organization [facility] Address [address] [place] [address] Care Team Providers Care Parts Representative Name Role Phone Roseann Colby Pearl DO Primary Care Provider [phone] Laya Thompson IRONWORKER FOREMAN Unavailable Laya Thompson IRONWORKER FOREMAN Unavailable Encounter Details Date Type Department Care Team (Late st Contact Info) Description 01/11/2025 Abstract [facility] [address] [place] [id number] Laya Thompson IRONWORKER FOREMAN [address] [place] [address] Social History Tobacco Use Types Packs/Day Years Used Date Smoking Tobacco: Former Cigarettes 0.5 15 1 04/08/1990 - 02/06/2006 Smokeless Tobacco: Never Comments:Last smoked: more t brennan 10 years ago Alcohol Use Standard Drinks/Week Comments Yes 1 (1 standard drink = 0.6 oz pur e alcohol) I drink a beer once a week B1300 Health Literacy Answer Date Recor ded How often do you need to hav e someone help you when you read instructions, pamphlets, or other written material from your doctor or pharmacy? Never 09/04/2024 Humiliation, Afraid, Rape, and Kick questionnair e Answer Date Recorded Within the last year, have y ou been afraid of your partner or ex-partner? No 09/04/2024 Within the last year, have y ou been humiliated or emotionally abused in other ways by your partner or ex-partner? No Within the last year, have y ou been kicked, hit, slapped, or otherwise physically hurt by your partner or ex-partner? No 09/04/2024 Within the last year, have y ou been raped or forced to have any kind of sexual activity by your partner or ex-partner? No 09/04/2024 Social Connection and Isolation Panel Answer Date Recorded In a typical week, how many times do you talk on the phone with family, friends, or neighbors? More than three times a week 09/04/2024 How often do you get togethe r with friends or relatives? Once a week 09/04/2024 How often do you attend chur or gnosticist services? More than 4 times per year 09/04/2024 Do you belong to any clubs o r organizations such as gnosticism groups, unions, fraternal or athletic groups, or school groups? Yes 09/04/2024 How often do you attend meet ings of the clubs or organizations you belong to? More than 4 times per year 09/04/2024 Are you , , di vorced, , never , or living with a partner? 09/04/2024 AUDIT-C Answer Date Recorded Q1: How often do you have a drink containing alc ohol? 2-4 times a month 09/04/2024 Q2: How many drinks containi ng alcohol do you have on a typical day when you are drinking? 1 or 2 09/04/2024 Q3: How often do you have si x or more drinks on one occasion? Never 09/04/2024 Overall Financial Resource Strain (CARDIA) Answe r Date Recorded How hard is it for you to pa y for the very basics like food, housing, medical care, and heating? Not very hard 09/04/2024 PHQ-2 Answer Date Recorded Patient Health Questionnaire-2 Score 0 05/08/2024 [facility] - Occupational Stress Questionnaire Answer Date Recorded Do you feel stress - tense, restless, nervous, or anxious, or unable to sleep at night because your mind is troubled all the time - these days? Not at all 09/04/2024 Exercise Vital Sign Answer Date Recorde d On average, how many days pe r week do you engage in moderate to strenuous exercise (like a brisk walk)? 5 days On average, how many minutes do you engage in exercise at this level? Patient declined 09/04/2024 Hunger Vital Sign Answer Date Recorded Within the past 12 months, y ou worried that your food would run out before you got the money to buy more. Never true 09/05/19 25 Within the past 12 months, t he food you bought just didn't last and you didn't have money to get more. Never true 09/04/2024 PRAPARE - Transportation Answer Date Re corded In the past 12 months, has l ack of transportation kept you from medical appointments or from getting medications? No 05/2024 In the past 12 months, has l ack of transportation kept you from meetings, work, or from getting things needed for daily living? No 09/04/2024 Housing Stability Vital Sign Answer Karthik e Recorded In the last 12 months, was t here a time when you were not able to pay the mortgage or rent on time? No 01/18/2023 In the last 12 months, how many places have you lived? 1 01/18/2023 In the last 12 months, was t here a time when you did not have a steady place to sleep or slept in a penitentiary (including now)? No 01/18/2023 Housing Stability Vital Sign Answer Karthik e Recorded In the last 12 months, was t here a time when you were not able to pay the mortgage or rent on time? Patient declined 09/05/19 In the past 12 months, how m any times have you moved where you were living? 0 09/04/2024 At any time in the past 12 m [facility], were you homeless or living in a penitentiary (including now)? No 09/04/2024 Sex and Gender Information Value Date Recorded Sex Assigned at Not on file Legal Sex Male 6:52 PM EDT Gender Identity Not on file Sexual Orientation Not on file documented as of this encounter Plan of Treatment Upcoming Encounters Date Type Department Care Team (Late st Contact Info) Description 02/26/2025 10:30 AM EST Office Visit [facility] [address] [place] [address] Laya Thompson, IRONWORKER FOREMAN [address] [place], [place] [id number] 04/20/2025 11:00 AM EST Office Visit [facility] [address] [place] [address] Nicol Ballard, [place] [address] [place] [address] documented as of this encounter Visit Diagnoses Not on filedocumented in this encounter Care Teams Parts Representative Relationship Specialty Start Date End Date Colby Whitfield DO [address] [place], [place] [id number] PCP - General Family Medicine 10/14/22 Laya Thompson, IRONWORKER FOREMAN [address] [place], [place] [id number] PCP - ACO Reach 01/04/24 Laya Thompson, IRONWORKER FOREMAN [address] [place] [address] Nurse Practitioner Family Medicine 10/14/22 documented as of this encounter
--- OUTSIDE RECORDS SUMMARY | 2025-01-22 10:18 | XMS_ITS | Clinical Summary ---
Author Organization [facility] Address [address], [address] [place] [address] Care Team Providers Care Appointment Coordinator Name Role Phone Colby Whitfield DO Primary Care Provider Allergies No known active allergies Medications omeprazole (PRILOSEC) 20 MG capsule Take 20 mg by mouth daily. Active atenolol (TENORMIN) 50 MG tablet Take 50 mg by mouth daily. Active lisinopril (PRINIVIL;ZESTR IL) 10 MG tablet Take 20 mg by mouth 2 times daily Active atorvastatin (LIPITOR) 40 MG tablet Take 40 mg by mouth daily. Active aspirin 81 MG tablet Take 81 mg by mouth daily. Active multivitamin (THERAGRAN) per tablet Take 1 tablet by mouth daily. Active hydrochlorothia zide (HYDRODIURIL) 25 MG tablet Take 25 mg by mouth daily Active CALCIUM-VITAMIN D PO Take by mouth Active Insulin Degludec (TRESIBA SC) Inject 64 Units into the skin nightly Active JANUMET XR 50-1000 MG TB24 per extended release tablet 2 tablets 1 in am and 1 in PM 03/31/2022 Active MELATONIN PO Take by mouth Active famotidine (PEPCID) 20 MG tablet 02/02/2022 Active APPLE CIDER VINEGAR PO Take by mouth Active ZINC PO Take by mouth Active vitamin B-6 (PYRIDOXINE) 50 MG tablet Take 100 mg by mouth daily Active FLUTICASONE PROPIONATE, NASAL, NA by Nasal route Active sucralfate (CARAFATE) 1 GM/10ML suspensionIndic ations:Duodenit is Take 10 mLs by mouth 4 times daily 1200 mL 05/05/2022 Active Active Problems Problem Noted Date Diagnosed Date Rotator cuff syndrome of right shoulder 05/09/19 21 HTN (hypertension) 11/09/2016 Hypercholesteremia 11/09/2016 Gastroesophageal reflux disease without esophagi tis 11/09/2016 Type 2 diabetes mellitus with complication 11/09 Sleep apnea 11/09/2016 Biliary colic 11/17/2013 Social History Tobacco Use Types Packs/Day Years Used Date Smoking Tobacco: Former Cigarettes 0.5 25 0 11/30/1981 - 11/30/2006 Pipe Smokeless Tobacco: Former Snuff, Chew Tobacco Cessation:Counseling Given: Not Answered Alcohol Use Standard Drinks/Week Comments Yes 9 [...] place to sleep or slept in a usp (including now)? No 06/04/2022 Food Insecurity Answer [...] on file Sexual Orientation Not on file Last Filed Vital Signs Vital Sign Reading Time Taken Comments Blood Pressure 134/66 06/04/2022 10:21 AM EST Pulse 62 06/04/2022 10:21 AM EST Temperature 36.7 C (98.1 F) 05/04/2022 8:30 AM EST Respiratory Rate 15 05/04/2022 8:45 AM EST Oxygen Saturation 94% 05/04/2022 8:45 AM EST Inhaled Oxygen Concentration - - Weight 78 kg (172 lb) 06/04/2022 10:21 AM EST Height 170.2 cm (5' 7 ) 06/04/2022 10:21 AM EST Body Mass Index 26.94 06/04/2022 10:21 AM EST Plan of Treatment Health Maintenance Due Date Last Done Comments Lipids 06/22/1953 Depression Screen 1955 Diabetic Alb to Cr ratio (uACR) test 06/22/1961 DTaP/Tdap/Td vaccine (1 - Tdap) 06/22/1962 Shingles vaccine (1 of 2) 06/22/1993 Respiratory Syncytial Virus (RSV) or age 60 yrs+ (1 - 1-dose 75+ series) 06/22/2018 GFR test (Diabetes, CKD 3-4, OR last GFR 15-59) 05/02/2021 05/02/2020 Annual Wellness Visit (Medicare) 03/01/2023 Flu vaccine (#1) 11/03/2024 03/03/2022, , 02/22/2020, Additional history exists COVID-19 Vaccine ( - 2024- season) 2024 06/18/2020 Pneumococcal 50+ years Vaccine Completed 03/02/2017, 03/11/2015 Hepatitis A vaccine Aged Out No longe r eligible based on patient's age to complete this topic Hepatitis B vaccine Aged Out No longe r eligible based on patient's age to complete this topic Hib vaccine Aged Out No longer eligi ble based on patient's age to complete this topic Meningococcal (ACWY) vaccine Aged Out No longer eligible based on patient's age to complete this topic Meningococcal B vaccine Aged Out No l onger eligible based on patient's age to complete this topic Polio vaccine Aged Out No longer elig ible based on patient's age to complete this topic Medical Devices Implanted Type Area Public Service Officer Device Identifier Shelf Expiration Date Model / Serial / Lot [employer] [id number] Mm Swivelock C Implanted:Qty: 2 on 05/09/2020 by Toby Ames DO at [facility] Right: Shoulder [employer] [id number] / / Procedures Procedure Name Priority Date/Time Associated Diagnosis Comments BASIC METABOLIC PANEL Routine 05/02/2020 11:35 AM EST from Last 3 Months or Most Recently Relevant to Health Maintenance Results * (ABNORMAL) Basic Metabolic Panel (05/02/2020 11:35 AM EST) Glucose 155(H) 70 - 99 mg/dL 05/02/2020 11:35 AM [facility] BUN 25(H) 8 - 23 mg/dL 05/02/2020 11:35 AM [facility] Creatinine 1.26(H) 0.70 - 1.20 mg/dL 05/02/2020 11:35 AM [facility] BUN/Creatinine Ratio 20 9 - 20 05/02/2020 11:35 AM [facility] Calcium 10.6(H) 8.6 - 10.4 mg/dL 05/02/2020 11:35 AM [facility] Sodium 134(L) 135 - 144 mmol/L 05/02/2020 11:35 AM [facility] Potassium 4.5 3.7 - 5.3 mmol/L 05/02/2020 11:35 AM [facility] Chloride 99 98 - 107 mmol/L 05/02/2020 11:35 AM EST [facility] CO2 26 20 - 31 mmol/L 05/02/2020 11:35 AM EST [facility] Anion Gap 9 9 - 17 mmol/L 05/02/2020 11:35 AM EST [facility] GFR Non- 56(L) >60 mL/min 05/02/2020 11:35 AM EST [facility] GFR >60 >60 mL/min 05/02/2020 11:35 AM EST [facility] GFR Comment 05/02/2020 11:35 AM EST [facility] Comment: Average GFR for 70 or more years old: 75 mL/min/1.73sq m Chronic Kidney Disease: <60 mL/min/1.73sq m Kidney failure: <15 mL/min/1.73sq m eGFR calculated using average adult body mass. Additional eGFR calculator available at: http://www.AppShare/multiple_crcl_2012.htm GFR Staging NOT REPORTED 05/02/2020 11:35 AM EST [facility] 05/02/2020 11:3 5 AM EST 05/02/2020 11:36 AM EST Toby Ames DO CHEMISTRY ORDERABLES Final Result [facility] [address] [place] [address], [facility] [phone] from Last 3 Months or Most Recently Relevant to Health Maintenance Insurance MEDICARE [employer] MEDICARE SUPP Advance Directives * Full Code (Latest Code Status on File) Date Activated Date Inactivated Comments 05/09/2020 2:39 PM 05/09/2020 6:46 PM * Full Code Date Activated Date Inactivated Comments 05/09/2020 10:31 AM 05/09/2020 2:39 PM * Full Code Date Activated Date Inactivated Comments 11/30/2016 6:33 AM 11/30/2016 11:59 AM Healthcare Agents on File Name Relationship Healthcare Agent [facility] Communication Marianna Raudel Spouse Primary Decision Maker Care Teams Appointment Coordinator Relationship Specialty Start Date End Date Colby Whitfield DO [address] [place] [address] PCP - General Family Medicine 11/24/16
--- OUTSIDE RECORDS SUMMARY | 2025-01-22 10:18 | XMS_ITS | Encounter Summary ---
Author Organization [facility] Address [address] [place] [address] Care Team Providers Care Quality Assurance Advisor Name Role Phone Roseann Colby Pearl DO Primary Care Provider Laya Thompson MISSION ANALYST Unavailable Laya Thompson MISSION ANALYST Unavailable Encounter Details Date Type Department Care Team (Late st Contact Info) Description 12/27/2024 Orders Only [facility] [address] [place] [phone] Laya Thompson, MISSION ANALYST [address] [place] [address] Social History Tobacco Use Types [...] How often do you attend chur or yazidism services? More than 4 times per year 09/04/2024 Do you belong to any clubs o r organizations such as pentecostal groups, unions, fraternal or athletic groups, or [...] Recorded Patient Health Questionnaire-2 Score 0 05/08/2024 [facility] Occupat ional Health - Occupational Stress [...] place to sleep or slept in a alf (including now)? No 01/18/2023 Housing Stability Vital [...] any time in the past 12 m [facility], were you homeless or living in a alf (including now)? No 09/04/2024 Sex and Gender Information Value Date Recorded Sex Assigned at Not on file Legal Sex Male 6:52 PM EDT Gender Identity Not on file Sexual Orientation Not on file documented as of this encounter Plan of Treatment Upcoming Encounters Date Type Department Care Team (Late st Contact Info) Description 02/26/2025 10:30 AM EST Office Visit [facility] [address] [place] [address] Laya Thompson NP [address] [place] [phone] 04/20/2025 11:00 AM EST Office Visit [facility] [address] [place] [address] Nicol Ballard, PA [address] [place] [address] documented as of this encounter Procedures Procedure Name Priority Date/Time Associated Diagnosis Comments HEMOGLOBIN A1C Routine 12/26/2024 8:52 AM EDT documented in this encounter Results * (ABNORMAL) Hemoglobin A1c (12/26/2024 8:52 AM EDT) Blood Venous blood specimen / Unknown Laya Thompson MISSION ANALYST LAB BLOOD ORDERABLES Final Resul t documented in this encounter Visit Diagnoses Not on filedocumented in this encounter Care Teams Quality Assurance Advisor Relationship Specialty Start Date End Date Colby Whitfield DO [address] [place] [address] PCP - General Family Medicine 10/14/22 Laya Thompson MISSION ANALYST [address] [place] [address], [place] [phone] PCP - ACO Reach 01/04/24 Laya Thompson NP [address] [place] [address] Nurse Practitioner Family Medicine 10/14/22 documented as of this encounter
--- OUTSIDE RECORDS SUMMARY | 2025-01-22 10:18 | XMS_ITS | Encounter Summary ---
Author Organization [facility] Address [address] [place] [address] Care Team Providers Care Copy Camera Operator Name Role Phone System, Provider Not In Primary Care Provider Un available Colby Whitfield DO Primary Care Provider Laya Thompson ORTHOPAEDIC DOCTOR Unavailable Colby Whitfield DO Unavailable [phone] Laya Thompson ORTHOPAEDIC DOCTOR Unavailable Encounter Details Date Type Department Care Team (Late st Contact Info) Description 10/09/2022 Abstract [facility] [address] [address] [address] [place] [address] Vicki Fulton MD [address] [facility] [address] [place] [address] Social History Tobacco Use Types Packs/Day Years Used Date Smoking Tobacco: Former Cigarettes Smokeless Tobacco: Never Comments:Last smoked: more t brennan 10 years ago Alcohol Use Standard Drinks/Week Comments Yes 2 (1 standard drink = 0.6 oz pure alcohol) Caffeine intake: 1-2 cups per day of coffee Sex and Gender Information Value Date Recorded Sex Assigned at Not on file Legal Sex Male 6:52 PM EDT Gender Identity Not on file Sexual Orientation Not on file COVID-19 Exposure Response Date Recorded In the last 10 days, have yo u been in contact with someone who was confirmed or suspected to have Coronavirus/COVID-19? No / Unsure 09/30/2022 10:28 AM EDT documented as of this encounter Plan of Treatment Upcoming Encounters Date Type Department Care Team (Late st Contact Info) Description 02/26/2025 10:30 AM EST Office Visit [facility] [place] [facility] [address] [place] [phone] Laya Thompson, ORTHOPAEDIC DOCTOR [address] [place] [address] 04/20/2025 11:00 AM EST Office Visit [facility] [place] [facility] [address] [place] [phone] Nicol Ballard, PA [address] [place] [address] documented as of this encounter Visit Diagnoses Not on filedocumented in this encounter Care Teams Copy Camera Operator Relationship Specialty Start Date End Date System, Provider Not In PCP - General 09/01/22 10/13/22 Colby Whitfield DO [address] [place] [address] PCP - General Family Medicine 10/14/22 Colby Whitfield DO [address] [place] [address] PCP - ACO Reach 06/04/23 01/03/24 Laya Thompson, ORTHOPAEDIC DOCTOR [address] [place] [address] PCP - ACO Reach 01/04/24 Laya Thompson, ORTHOPAEDIC DOCTOR [address] [place] [address] Nurse Practitioner Family Medicine 10/14/22 documented as of this encounter
--- OUTSIDE RECORDS SUMMARY | 2025-01-22 10:18 | XMS_ITS | Encounter Summary ---
Author Organization [facility] Address [address] [place] [address] Care Team Providers Care Finance Clerk Name Role Phone Colby Whitfield DO Primary Care Provider [phone] Reason for Referral * Imaging (Routine) - Closed Specialty Diagnoses / Procedures Referred By Kia [email or web address] Referred To Contact Radiology Diagnoses Impingement syndrome of right shoulder Procedures MRI SHOULDER RIGHT WO CONTRAST Toby Ames DO [address] [place] [address] Phone: tel: [facility] [address] [place] [address] Phone: tel: Referral ID Status Reason Start Date Expiration Date Visits Re quested Visits Authorized [id number] Closed 04/22/2020 04/22/2021 1 1 Encounter Details Date Type Department Care Team (Late st Contact Info) Description 04/22/2020 Transcribe Orders [facility] [address] [place] [place] [address] Toby Ames DO [address] [place] [address] Impingement syndrome of right shoulder (Primary Dx) Social History Tobacco Use Types Packs/Day Years Used Date Smoking Tobacco: Former Cigarettes Q uit: 11/30/2006 Pipe Smokeless Tobacco: Former Snuff, Chew Alcohol Use Standard Drinks/Week Comments Yes 9 (1 standard drink = 0.6 oz pur e alcohol) Sex and Gender Information Value Date Recorded Sex Assigned at Not on file Legal Sex Male 3:32 PM EST Gender Identity Not on file Sexual Orientation Not on file documented as of this encounter Plan of Treatment Not on file documented as of this encounter Results * MRI SHOULDER RIGHT WO CONTRAST (04/24/2020 11:09 AM EST) Anatomical Region Laterality Modality Shoulder, Chest, Arm Magnetic Re sonance 04/24/2020 11:5 3 AM EST Impressions 04/24/2020 12:18 PM EST 1. A 1.3 cm x 1 cm [...] clinical follow up to assess for stability. Narrative 04/24/2020 12:18 PM EST CLINICAL HISTORY: Impingement syndrome of [...] glenohumeral joint, with small inferior marginal osteophytes. Procedure Note Manny Alberto MD - 04/24/2020 CLINICAL HISTORY: Impingement syndrome of right shoulder (M75.41). Right shoulder pain. MRI RIGHT SHOULDER WITHOUT CONTRAST: TECHNIQUE: Sagittal PD, STIR, T2, coronal T1, PD, T2 fat-saturated, andaxial images were obtained through the right shoulder. COMPARISON: Radiograph of 02/23/2020. FINDINGS: A large 7.2 cm transverse by 4 cm AP by 3.7 cm craniocaudal fatty mass isnoted in the teres minor muscle, with a couple of very thin internal septations, consistent with a benign lipoma. No thickened internal septation, mural nodularity, or other concerning feature is seen in association with thisfatty mass. Severe AC joint osteoarthrosis is present, with subchondral cysts, andlarge marginal osteophytes which narrow the supraspinatus outlet. There is typeII acromion. Mild subacromial/subdeltoid bursitis. There is a 1.3 cm AP by 1 cm transverse high-grade partial-thickness or possibly full-thickness rotator cuff tear of the distalmost infraspinatus tendon, with surrounding severe infraspinatus tendinopathy andsupraspinatus tendinopathy. No tendon retraction or muscular atrophy. There is aprobable small 0.5 cm x 0.5 cm low-grade partial-thickness intrasubstance tear orarea of fraying in the superior distal fibers of the subscapularis tendon, with surrounding moderate tendinopathy. The teres minor tendon is intact. There is medial subluxation of the medial fibers of the long head of thebiceps tendon from the bicipital groove to anterior to the lesser tuberosity ofthe humerus, with associated proximal biceps tendinopathy. Degeneration or degenerative tear is suspected throughout the superiorlabrum, and possibly the inferior labrum. Mild osteoarthrosis is noted in the inferior aspect of the glenohumeraljoint, with small inferior marginal osteophytes. IMPRESSION: 1. A 1.3 cm x 1 cm high-grade partial-thickness or possibly full-thickness rotator cuff tear of the distalmost infraspinatus tendon, with surrounding severe infraspinatus tendinopathy and supraspinatus tendinopathy. Notendon retraction or muscular atrophy. 2. Probable small 0.5 cm x 0.5 cm low-grade partial-thicknessintrasubstance tear or area of fraying in the superior distal fibers of the subscapularis tendon, with surrounding moderate tendinopathy. 3. Medial subluxation of the medial fibers of the long head of the biceps tendon from the bicipital groove to anterior to the lesser tuberosity ofthe humerus, with associated proximal biceps tendinopathy. 4. Degeneration or degenerative tear is suspected throughout the superior labrum, and possibly the inferior labrum. 5. Mild osteoarthrosis in the inferior aspect of the glenohumeral joint. 6. Severe AC joint osteoarthrosis, with large marginal osteophytes whichnarrow the supraspinatus outlet. Mild subacromial/subdeltoid bursitis. 7. 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 I recommendcontinued clinical follow up to assess for stability. Toby Ames DO IMG MRI ORDERABLES Final Re sult documented in this encounter Visit Diagnoses Diagnosis Impingement syndrome of right shoulder- Primary Other affections of shoulder region, not elsewhere classified Impingement syndrome of right shoulder Other affections of shoulder region, not elsewhere classified documented in this encounter Additional Health Concerns Assessment Noted Time A fall risk assessment has been complete d for the patient 12/15/2016 9:17 AM EDT documented as of this encounter Care Teams Finance Clerk Relationship Specialty Start Date End Date Colby Whitfield DO [address] [place], [place] [phone] PCP - General Family Medicine 11/24/16 documented as of this encounter
--- OUTSIDE RECORDS SUMMARY | 2025-01-22 10:18 | XMS_ITS | Encounter Summary ---
Author Organization [facility] Address [address] [place] [address] Care Team Providers Care Containers Sales Representative Name Role Phone Colby Whitfield DO Primary Care Provider [phone] Laya Thompson THERMAL TECHNICIAN Unavailable Laya Thompson THERMAL TECHNICIAN Unavailable Reason for Visit * Reason Onset Date Comments refill atenolol 01/15/2025 Encounter Details Date Type Department Care Team (Late st Contact Info) Description 01/15/2025 Telephone [facility] [address] [place] [address] Laya Thompson THERMAL TECHNICIAN [address] [place] [address] refill atenolol Social History Tobacco Use Types Packs/Day Years [...] How often do you attend chur or mormon services? More than 4 times per year 09/04/2024 Do you belong to any clubs o r organizations such as rastafari groups, unions, fraternal or athletic groups, or [...] Recorded Patient Health Questionnaire-2 Score 0 05/08/2024 [facility] Occupat ional Health - Occupational Stress [...] money to buy more. Never true 09/05/19 Within the past 12 months, t he [...] place to sleep or slept in a intermediate (including now)? No 01/18/2023 Housing Stability Vital [...] any time in the past 12 m [facility], were you homeless or living in a intermediate (including now)? No 09/04/2024 Sex and Gender Information Value Date Recorded Sex Assigned at Not on file Legal Sex Male 6:52 PM EDT Gender Identity Not on file Sexual Orientation Not on file documented as of this encounter Miscellaneous Notes * Telephone Encounter - Laya Thompson NP - 01/15/2025 5:16 PM EDT Sent as requested * Telephone Encounter - Lindsay Diaz MA - 01/15/2025 12:37 PM EDT He would like to get a refill on his atenolol 50mg to [facility] Last appt: 01/03/2025 Next appt: 02/26/2025 documented in this encounter Plan of Treatment Upcoming Encounters Date Type Department Care Team (Late st Contact Info) Description 02/26/2025 10:30 AM EST Office Visit [facility] [address] [place] [phone] Laya Thompson NP [address] [place] [address] 04/20/2025 11:00 AM EST Office Visit [facility] [address] [place] [address] Nicol Ballard, PA [address] [address] documented as of this encounter Visit Diagnoses Diagnosis Primary hypertension Unspecified essential hypertension documented in this encounter Care Teams Containers Sales Representative Relationship Specialty Start Date End Date Colby Whitfield DO [address] [place] [address] PCP - General Family Medicine 10/14/22 Laya Thompson NP [address] [place], [place] [phone] PCP - ACO Reach 01/04/24 Laya Thompson NP [address] [place], [place] [phone] Nurse Practitioner Family Medicine 10/14/22 documented as of this encounter
--- OUTSIDE RECORDS SUMMARY | 2025-01-22 10:18 | XMS_ITS | Encounter Summary ---
Author Organization [facility] Address [address] [place] [address] Care Team Providers Care Director Of Archives Name Role Phone Colby Whitfield DO Primary Care Provider Laya Thompson GARDEN TRACTOR MECHANIC Unavailable Colby Whitfield DO Unavailable [phone] Laya Thompson GARDEN TRACTOR MECHANIC Unavailable Encounter Details Date Type Department Care Team (Late st Contact Info) Description 10/19/2022 Abstract [facility] [place] [facility] [address] [place] [phone] Laya Thompson NP [address] [place] [address] Social History Tobacco Use Types [...] Medicine [address] [place] [phone] Laya Thompson GARDEN TRACTOR MECHANIC [address] [place], [place] [phone] 04/20/2025 11:00 AM EST Office Visit [facility] [place] [facility] [address] [place] [phone] Nicol Ballard, PA [address] [place] [address] documented as of this encounter Visit Diagnoses Not on filedocumented in this encounter Care Teams Director Of Archives Relationship Specialty Start Date End Date Colby Whitfield DO [address] [place] [address] PCP - General Family Medicine 10/14/22 Colby Whitfield DO [address] [place] [address] PCP - ACO Reach 06/04/23 01/03/24 Laya Thompson GARDEN TRACTOR MECHANIC [address] [place] [address] PCP - ACO Reach 01/04/24 Laya Thompson GARDEN TRACTOR MECHANIC [address] [place], [place] [phone] Nurse Practitioner Family Medicine 10/14/22 documented as of this encounter
--- OUTSIDE RECORDS SUMMARY | 2025-01-22 10:18 | XMS_ITS | Clinical Summary ---
Author Organization [facility] Address [address] [place] [address] Care Team Providers Care Compensation Advisor Name Role Phone Colby Whitfield DO Primary Care Provider [phone] Laya Thompson LOCK STITCH CHANNELER Unavailable Laya Thompson LOCK STITCH CHANNELER Unavailable Allergies No known active allergies Medications zinc 30 MG tablet 1 (one) time each day at the same time Active Multiple Vitamins-Minerals (Multivitamin Adults 50+) tablet 1 (one) time each day at the same time Active Melatonin 3-10 MG tablet Active cholecalciferol (Vitamin D-3) 50 MCG (1999) tablet 1 (one) time each day at the same time Active aspirin 81 MG EC tablet 1 (one) time each day at the same time Active Ascorbic Acid (Vitamin C) 500 MG capsule 1 (one) time each day at the same time Active Apple Cider Vinegar 600 MG capsule Take 1 tablet by mouth every 8 (eight) hours Active insulin degludec (Tresiba FlexTouch) 200 UNIT/ML injectionIndicatio ns:Type 2 diabetes mellitus with other specified complication, unspecified whether assisted insulin use (HCC) Inject 34 Units under the skin in the morning and 34 Units before bedtime. 27 mL 3 05/21/19 25 Active famotidine (Pepcid) 20 MG tabletIndications: Chronic GERD Take 1 tablet (20 mg) by mouth in the morning and 1 tablet (20 mg) before bedtime. 180 tablet 3 06/06/19 25 Active Lancet Devices (Autolet) lancing deviceIndications: Type 2 diabetes mellitus without complication, without long-term current use of insulin (HCC) Daily testing 100 each 3 08/16/19 25 Active glucose blood test stripIndications:T ype 2 diabetes mellitus without complication, without long-term current use of insulin (HCC) Daily testing 100 each 3 08/16/19 25 Active loratadine (Claritin) 10 MG tabletIndications: Environmental and seasonal allergies Take 1 tablet (10 mg) by mouth Daily 90 tablet 3 08/31/19 25 Active amoxicillin (Amoxil) 500 MG capsule Take 500 mg by mouth 08/18/19 25 Active SITagliptin (Januvia) 100 MG tabletIndications: Type 2 diabetes mellitus with complication (HCC) Take 1 tablet (100 mg) by mouth Daily 90 tablet 3 09/20/19 25 Active omeprazole (PriLOSEC) [address] capsuleIndications :Chronic GERD Take 1 capsule (20 mg) by mouth 1 (one) time each day at the same time 90 capsule 1 12/06/19 25 Active fluticasone (Flonase) 50 MCG/ACT nasal sprayIndications:E nvironmental and seasonal allergies Administer 1 spray into each nostril Daily Shake gently. Before first use, prime pump. After use, clean tip and replace cap. 48 mL 3 12/19/19 25 Active lisinopril 20 MG tabletIndications: Primary hypertension Take 1 tablet (20 mg) by mouth in the morning and 1 tablet (20 mg) before bedtime. 180 tablet 1 12/19/19 25 Active acetaminophen-code ine (Tylenol w/ Codeine #3) 300-30 MG tablet 11/11/19 25 Active Misc Natural Products (OSTEO BI-FLEX ADV JOINT SHIELD PO) Take by mouth Activ e Bexagliflozin (Brenzavvy) 20 MG tabletIndications: Type 2 diabetes mellitus with complication (HCC) Take 20 mg by mouth Daily 90 tablet 3 01/04/20 25 Active hydroCHLOROthiazid e (HYDRODiuril) 25 MG tabletIndications: Primary hypertension Take 1 tablet (25 mg) by mouth Daily 90 tablet 3 01/04/20 25 025 Active rosuvastatin (Crestor) 10 MG tabletIndications: Mixed hyperlipidemia Take 1 tablet (10 mg) by mouth Daily 30 tablet 1 01/04/20 25 026 Active insulin aspart FlexPen (NovoLOG) 100 UNIT/ML penIndications:Typ e 2 diabetes mellitus with complication (HCC) 5 units Once daily before evening meal 1 each 2 01/06/20 25 Active atenolol (Tenormin) 50 MG tabletIndications: Primary hypertension Take 1 tablet (50 mg) by mouth Daily 90 tablet 1 01/16/20 25 Active atorvastatin (Lipitor) 40 MG tabletIndications: Mixed hyperlipidemia Take 1 tablet (40 mg) by mouth Daily 90 tablet 3 01/10/20 24 025 Discontin ued(Side effects) Bexagliflozin (Brenzavvy) 20 MG tabletIndications: Type 2 diabetes mellitus with complication (HCC) Take 20 mg by mouth Daily 90 tablet 3 01/17/20 24 025 Discontin ued(Reord er) atenolol (Tenormin) 50 MG tabletIndications: Primary hypertension Take 1 tablet (50 mg) by mouth Daily 90 tablet 1 07/11/19 25 025 Discontin ued(Reord er) hydroCHLOROthiazid e (HYDRODiuril) 25 MG tablet Take 25 mg by mouth Daily 025 Discontin ued(Reord er) Insulin Lispro 100 UNIT/ML solutionIndication s:Type 2 diabetes mellitus with complication (HCC) Inject 5 Units as directed in the evening. Take before meals 10 mL 1 01/04/20 25 025 Discontin ued(Thera py completed ) insulin aspart FlexPen (NovoLOG) 100 UNIT/ML penIndications:Typ e 2 diabetes mellitus with complication (HCC) Once daily before evening meal 1 each 2 01/06/20 25 025 Discontin ued(Reord er) Active Problems Problem Noted Date Diagnosed Date Arthritis, multiple joint involvement 10/19/2022 Chronic GERD 10/19/2022 CPAP (continuous positive airway pressure) depen dence 10/19/2022 Disc degeneration, lumbar 10/19/2022 Mixed hyperlipidemia 10/19/2022 Environmental and seasonal allergies 10/19/2022 Lumbar spondylosis 10/19/2022 Obstructive sleep apnea syndrome 10/19/2022 Stage 3a chronic kidney disease 10/19/2022 Vitamin D deficiency 10/19/2022 Type 2 diabetes mellitus with complication 11/09 Primary hypertension 11/09/2016 Resolved Problems Problem Noted Date Diagnosed Date Resolved Date Age-related cataract of both eyes 10/19/2022 09/15/2023 Arthritis of right acromioclavicular joint 10/19/2022 05/21/2023 Chronic kidney disease, stage 2 (mild) 10/19/2022 10/21/2022 Duodenitis 10/19/2022 10/21/2022 Erectile dysfunction 10/19/2022 024 Hypomagnesemia 10/19/2022 01/14/2024 Left carpal tunnel syndrome 10/19/2022 01/19/2023 Nontraumatic tear of right rotator cuff 10/19/2022 09/15/2023 Primary osteoarthritis of right wrist 10/19/2022 05/21/2023 Problems with swallowing 10/19/202203/2024 Rupture of right rotator cuff 10/19/2022 09/15/2023 Diabetes mellitus without complication 10/19/2022 10/20/2022 Rotator cuff syndrome of right shoulder 05/09/2020 10/21/2022 Gastroesophageal reflux dise ase without esophagitis 11/09/2016 10/20/2022 Hypercholesteremia 11/09/2016 Sleep apnea 11/09/2016 10/20/2022 Type 2 diabetes mellitus 11/09/2016 Biliary colic 11/17/2013 10/21/2022 Encounters Date Type Department Care Team Description 01/15/2025 Telephone [facility] [id number] [place] [address] Laya Thompson NP refill atenolol 01/11/2025 Abstract [facility] [address] [place] [address] Laya Thompson NP 01/05/2025 Refill [facility] [address] [place] [address] Laya Thompson NP Type 2 diabetes mellitus with complication (HCC) 01/05/2025 Refill [facility] [id number] [place] [address] Laya Thompson, MERCEDES Type 2 diabetes mellitus with complication (HCC) (Primary Dx) 01/04/2025 Abstract [facility] [id number] [place] [address] Laya Thompson, MERCEDES 01/03/2025 11:00 AM EDT Office Visit [facility] [address] [place] [address] Laya Thompson, MERCEDES Chronic left shoulder pain (Primary Dx); Mixed hyperlipidemia; Type 2 diabetes mellitus with complication (HCC); Stage 3a chronic kidney disease ([facility]-HCC); Primary hypertension 01/03/2025 Abstract [facility] [address] [place] [address] Laya Thompson NP 01/03/2025 Bamboo flowsheet [facility] [address] [place] [address] Laya Thompson NP 01/03/2025 Travel 12/27/2024 Orders Only [facility] [address] [place] [address] Laya Thompson NP 12/21/2024 Patient Outreach [facility] [address] [place] [address] Haven Schmidt LPN 12/18/2024 11:00 AM EDT Office Visit [facility] [address] [place] [address] Bigg Dial DO Left shoulder pain, unspecified chronicity 12/18/2024 Refill [facility] [address] [place] [address] Oneida Noel MA Environmental and seasonal allergies; Primary hypertension 12/18/2024 Bamboo flowsheet [facility] [address] [place] [address] Bigg Dial DO 12/18/2024 Travel 12/05/2024 Telephone [facility] [address] [place] [address] Laya Thompson, LOCK STITCH CHANNELER refill Omeprazole from Last 3 Months Immunizations Immunization Administration Dates Next Due Influenza, High Dose Seasonal, Preservative Free 03/02/2018,01/07/2017 Influenza, High-dose Seasona l, Quadrivalent, Preservative Free 03/03/2022,01/01/2021 Influenza, injectable, quadrivalent 01/03/2016 Influenza, injectable, quadrivalent, preservativ e free 02/22/2020,03/11/2015 Influenza, trivalent, adjuvanted 04/25/2019 Pneumococcal Conjugate PCV 13 03/11/2015 Pneumococcal Polysaccharide PPSV23 03/02/2017 Family History Medical History Relation Name Comments Cancer Father Yuval Starks Other Father Yuval Starks bladder cancer No Known Problems Maternal Grandfather No Known Problems Maternal Grandmother Diabetes Mother Terra Starks Heart disease Mother Terra Starks Hypertension Mother Terra Starks No Known Problems Paternal Grandfather No Known Problems Paternal Grandmother Diabetes Sibling Relation Name Status Comments Father Yuval Starks Maternal Grandfather Maternal Grandmother Mother Terra Starks Paternal Grandfather Paternal Grandmother Sibling Social History Tobacco Use Types Packs/Day Years Used Date Smoking Tobacco: Former Cigarettes 0.5 15 1 04/08/1990 - 02/06/2006 Smokeless Tobacco: Never Tobacco Cessation:Counseling Given: No Comments:Last smoked: more than 10 years ago Alcohol Use Standard Drinks/Week [...] How often do you attend chur or taoist services? More than 4 times per year 09/04/2024 Do you belong to any clubs o r organizations such as samaritan groups, unions, fraternal or athletic groups, or [...] Recorded Patient Health Questionnaire-2 Score 0 05/08/2024 [facility] - Occupational Stress [...] place to sleep or slept in a fdc (including now)? No 01/18/2023 Housing Stability Vital [...] any time in the past 12 m [facility], were you homeless or living in a fdc (including now)? No 09/04/2024 Sex and Gender Information Value Date Recorded Sex Assigned at Not on file Legal Sex Male 6:52 PM EDT Gender Identity Not on file Sexual Orientation Not on file Last Filed Vital Signs Vital Sign Reading Time Taken Comments Blood Pressure 118/58 01/03/2025 11:07 AM EDT Pulse 59 01/03/2025 11:07 AM EDT Temperature 35.9 C (96.7 F) 01/03/2025 11:07 AM EDT Respiratory Rate 18 01/03/2025 11:07 AM EDT Oxygen Saturation 97% 01/03/2025 11:07 AM EDT Inhaled Oxygen Concentration - - Weight 73.6 kg (162 lb 3.2 oz) 01/03/2025 11:07 AM EDT Height 175.3 cm (5' 9 ) 01/03/2025 11:07 AM EDT Body Mass Index 23.95 01/03/2025 11:07 AM EDT Plan of Treatment Upcoming Encounters Date Type Department Care Team (Late st Contact Info) Description 02/26/2025 10:30 AM EST Office Visit [facility] [address] [place] [phone] Laya Thompson LOCK STITCH CHANNELER [address] [place], [place] [id number] 04/20/2025 11:00 AM EST Office Visit [facility] [address] [place] [phone] Nicol Ballard, [place] [address] [place] [id number] Health Maintenance Due Date Last Done Comments Diabetes: Urine Protein Screening 01/11/2025 01/12/2024, 08/12/2021, 05/30/2020, Additional history exists Diabetes: Hemoglobin A1C 03/27/2025 025, 09/01/2024, 05/07/2024, Additional history exists Medicare Annual Wellness (AWV) 05/08/2025 05/08/2024, 05/21/2023, 04/17/2021 Influenza Vaccine (#1) 2025 , 01/01/2021, 02/22/2020, Additional history exists Postponed from 12/04/2024 (Patient Refused) Diabetes: Retinopathy Screening 06/28/2026 06/28/2024, 06/25/2023, 12/10/2021, Additional history exists Pneumococcal Vaccine: 65+ Years Completed 03/02/2017, 03/11/2015 Procedures Procedure Name Priority Date/Time Associated Diagnosis Comments HEMOGLOBIN A1C Routine 12/26/2024 8:52 AM EDT CA ARTHROCENTESIS ASPIR&/INJ MAJOR JT/BURSA W/US Routine 12/18/2024 10:47 AM EDT Left shoulder pain, unspecified chronicity CA ARTHROCENTESIS ASPIR&/INJ MAJOR JT/BURSA W/US Routine 12/18/2024 10:46 AM EDT Left shoulder pain, unspecified chronicity DIABETIC RETINOPATHY SCREENING - OU - BOTH EYES Routine 06/28/2024 8:51 AM EDT MICROALBUMIN / CREATININE URINE RATIO Routine 01/12/2024 Type 2 diabetes mellitus with complication (HCC) from Last 3 Months or Most Recently Relevant to Health Maintenance Results * (ABNORMAL) Hemoglobin A1c (12/26/2024 8:52 AM EDT) Blood Venous blood specimen / Unknown Laya Thompson LOCK STITCH CHANNELER LAB BLOOD ORDERABLES Final Resul t * CA ARTHROCENTESIS ASPIR&/INJ MAJOR JT/BURSA W/US (12/18/2024 10:47 AM EDT) Narrative Jessica Gipson [facility] - 12/18/2024 10:47 AM EDT Jessica Gipson [facility] 12/18/2024 3:39 PM L Inj/Asp: L subacromial bursa on 12/18/2024 10:47 AM Indications: pain Details: 25 G needle, ultrasound-guided Medications: 1 mL betamethasone acetate-betamethasone sodium phosphate 6 (3-3) MG/ML Consent was given by the patient. Bigg Dial DO IN CLINIC/BEDSIDE ORDERABLES Fi nal Result * CA ARTHROCENTESIS ASPIR&/INJ MAJOR JT/BURSA W/US (12/18/2024 10:46 AM EDT) Narrative Jessica Gipson [facility] - 12/18/2024 10:46 AM EDT Jessica Gipson [facility] 12/18/2024 3:39 PM L Inj/Asp: L glenohumeral on 12/18/2024 10:46 AM Indications: pain Details: 25 G needle, ultrasound-guided Medications: 1 mL betamethasone acetate-betamethasone sodium phosphate 6 (3-3) MG/ML Consent was given by the patient. us Bigg Dial DO IN CLINIC/BEDSIDE ORDERABLES Fi nal Result * Diabetic Retinopathy Screening - OU - Both Eyes (06/28/2024 8:51 AM EDT) Anatomical Region Laterality Modality Head Other us Laya Thompson LOCK STITCH CHANNELER OPHTH PHOTOGRAPHY Final Result * Microalbumin / creatinine, urine ratio (01/12/2024) MICROALBUMIN, URINE 40.7 [facility] ALB/CREAT RATIO 144.6 [facility] URINE CREAT 28 [facility] Urine Urine specimen obtained by clean catch procedure / Unknown 01/12/2024 us Laya Thompson NP LAB URINE ORDERABLES Final Resul t QUEST from Last 3 Months or Most Recently Relevant to Health Maintenance Insurance MEDICARE [employer] MEDICARE SUPPLEMENT Advance Directives Documents on File Type Date Recorded 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
--- OUTSIDE RECORDS SUMMARY | 2025-01-22 10:19 | XMS_ITS | Encounter Summary ---
Author Organization [facility] Address [address] [place] [address] Care Team Providers Care Director Web Name Role Phone Roseann Colby Pearl DO Primary Care Provider Laya Thompson PACKAGER HAND Unavailable Laya Thompson PACKAGER HAND Unavailable Encounter Details Date Type Department Care Team (Late st Contact Info) Description 01/04/2025 Abstract [facility] [address] [place] [phone] Laya Thompson PACKAGER HAND [address] [place] [address] Social History Tobacco Use Types [...] How often do you attend chur or baptist services? More than 4 times per year 09/04/2024 Do you belong to any clubs o r organizations such as religious groups, unions, fraternal or athletic groups, or [...] Health Questionnaire-2 Score 0 05/08/2024 [facility] - Occupational Stress [...] place to sleep or slept in a jail (including now)? No 01/18/2023 Housing Stability Vital [...] were you homeless or living in a jail (including now)? No 09/04/2024 Sex and Gender [...] Family Medicine [address] [place] [address] Laya Thompson, PACKAGER HAND [address] [place], [place] [phone] 04/20/2025 11:00 AM EST Office Visit [facility] [address] [place] [address] Nicol Ballard, [place] [address] [place] [address] documented as of this encounter Visit Diagnoses Not on filedocumented in this encounter Care Teams Director Web Relationship Specialty Start Date End Date Colby Whitfield DO [address] [place], [place] [phone] PCP - General Family Medicine 10/14/22 Laya Thompson, PACKAGER HAND [address] [place], [place] [phone] PCP - ACO Reach 01/04/24 Laya Thompson, PACKAGER HAND [address] [place] [address] Nurse Practitioner Family Medicine 10/14/22 documented as of this encounter
--- OUTSIDE RECORDS SUMMARY | 2025-01-22 10:19 | XMS_ITS | Encounter Summary ---
Author Organization [facility] Address [address] [place] [address] Care Team Providers Care Etl Informatica Developer Name Role Phone Colby Whitfield DO Primary Care Provider Laya Thompson MACHINE COREMAKER Unavailable Laya Thompson MACHINE COREMAKER Unavailable Encounter Details Date Type Department Care Team (Late st Contact Info) Description 06/30/2024 Orders Only [facility] [address] [place] [address] Laya Thompson, MACHINE COREMAKER [address] [place] [address] Social History Tobacco Use Types Packs/Day Years Used Date Smoking Tobacco: Former Cigarettes 0.5 15 1 04/08/1990 - 02/06/2006 Smokeless Tobacco: Never Comments:Last smoked: more t brennan 10 years ago Alcohol Use Standard Drinks/Week Comments Yes 1 (1 standard drink = 0.6 oz pur e alcohol) I drink a beer once a week Humiliation, Afraid, Rape, and Kick questionnair e Answer Date Recorded Within the last year, have y ou been afraid of your partner or ex-partner? No 01/18/2023 Within the last year, have y ou been humiliated or emotionally abused in other ways by your partner or ex-partner? No Within the last year, have y ou been kicked, hit, slapped, or otherwise physically hurt by your partner or ex-partner? No 01/18/2023 Within the last year, have y ou been raped or forced to have any kind of sexual activity by your partner or ex-partner? No 01/18/2023 Social Connection and Isolation Panel Answer Date Recorded In a typical week, how many times do you talk on the phone with family, friends, or neighbors? More than three times a week 01/18/2023 How often do you get togethe r with friends or relatives? Once a week 01/18/2023 How often do you attend [facility] or holiness services? More than 4 times per year 01/18/2023 Do you belong to any clubs o r organizations such as spiritism groups, unions, fraternal or athletic groups, or school groups? Yes 01/18/2023 How often do you attend meet ings of the clubs or organizations you belong to? More than 4 times per year 01/18/2023 Are you , , di vorced, , never , or living with a partner? 01/18/2023 AUDIT-C Answer Date Recorded Q1: How often do you have a drink containing alc ohol? Monthly or less 01/18/2023 Q2: How many drinks containi ng alcohol do you have on a typical day when you are drinking? 1 or 2 01/18/2023 Q3: How often do you have si x or more drinks on one occasion? Never 01/18/2023 Overall Financial Resource Strain (CARDIA) Answe r Date Recorded How hard is it for you to pa y for the very basics like food, housing, medical care, and heating? Not hard at all 01/18/2023 PHQ-2 Answer Date Recorded Patient Health Questionnaire-2 Score 0 05/08/2024 [facility] - Occupational Stress Questionnaire Answer Date Recorded Do you feel stress - tense, restless, nervous, or anxious, or unable to sleep at night because your mind is troubled all the time - these days? Not at all 01/18/2023 Exercise Vital Sign Answer Date Recorde d On average, how many days pe r week do you engage in moderate to strenuous exercise (like a brisk walk)? 4 days 01/18/2023 On average, how many minutes do you engage in exercise at this level? 20 min 01/18/2023 Hunger Vital Sign Answer Date Recorded Within the past 12 months, y ou worried that your food would run out before you got the money to buy more. Never true 01/19/20 23 Within the past 12 months, t he food you bought just didn't last and you didn't have money to get more. Never true 01/18/2023 PRAPARE - Transportation Answer Date Re corded In the past 12 months, has l ack of transportation kept you from medical appointments or from getting medications? No 01/03 In the past 12 months, has l ack of transportation kept you from meetings, work, or from getting things needed for daily living? No 01/18/2023 Housing Stability Vital Sign Answer [...] in a penitentiary (including now)? No 01/18/2023 Sex and Gender Information Value Date Recorded [...] Family Medicine [address] [place] [address] Laya Thompson NP [address] [place] [address] 04/20/2025 11:00 AM EST Office Visit [facility] [address] [place] [phone] Nicol Ballard, PAPI [address] [place] [address] documented as of this encounter Procedures Procedure Name Priority Date/Time Associated Diagnosis Comments DIABETIC RETINOPATHY SCREENING - OU - BOTH EYES Routine 06/28/2024 8:51 AM EDT documented in this encounter Results * Diabetic Retinopathy Screening - OU - Both Eyes (06/28/2024 8:51 AM EDT) Anatomical Region Laterality Modality Head Other Laya Thompson NP OPHTH PHOTOGRAPHY Final Result documented in this encounter Visit Diagnoses Not on filedocumented in this encounter Care Teams Etl Informatica Developer Relationship Specialty Start Date End Date Colby Whitfield DO [address] [place], [place] [phone] PCP - General Family Medicine 10/14/22 Laya Thompson NP [address] [place], [place] [phone] PCP - ACO Reach 01/04/24 Laya Thompson NP [address] [place], [place] [phone] Nurse Practitioner Family Medicine 10/14/22 documented as of this encounter
--- OUTSIDE RECORDS SUMMARY | 2025-01-22 10:19 | XMS_ITS | Encounter Summary ---
Author Organization [facility] Address [address], [address] [place] [address] Care Team Providers Care Advertising Traffic Manager Name Role Phone Colby Whitfield DO Primary Care Provider [phone]- [phone] Encounter Details Date Type Department Care Team (Late st Contact Info) Description 09/04/2013 FollowUp Telephone Encounter F Diabetic Education and Nursing [address] [phone] Allison Cevallos, RN, BSN Social History Tobacco Use Types Packs/Day Years Used Date Smoking Tobacco: Former Cigarettes Pipe Smokeless Tobacco: Former Snuff, Chew Alcohol Use Standard Drinks/Week Comments Yes 5.8 (1 standard drink = 0.6 oz p ure alcohol) Sex and Gender Information Value Date Recorded Sex Assigned at Not on file Legal Sex Male 3:32 PM EST Gender Identity Not on file Sexual Orientation Not on file documented as of this encounter Progress Notes * Allison Cevallos RN, BSN - 09/04/2013 9:14 AM EDT Called pt and spoke with him for follow up. Pt reports he is doing pretty well. He is taking 46 units of Levemir. Continues on Metformin and Januvia was added and the Discontinued Amaryl. Denies any episodes of hypoglycemia. Pt had eye exam recently and reports that went well. Blood sugar readings are usually higher in evening. His AM readings have been around 120. Pt reports eating consistent meals. Had problems with hip and went to physical therapy and continues to do those exercises. Encouraged to call with questions or concerns. documented in this encounter Plan of Treatment Not on file documented as of this encounter Visit Diagnoses Not on filedocumented in this encounter Care Teams Advertising Traffic Manager Relationship Specialty Start Date End Date Colby Whitfield DO [address] [place] [address] PCP - General Family Medicine 11/24/16 documented as of this encounter
--- OUTSIDE RECORDS SUMMARY | 2025-01-22 10:19 | XMS_ITS | Encounter Summary ---
Author Organization [facility] Address [address] [place] [address] Care Team Providers Care Farm Demonstrator Name Role Phone Roseann Colby Pearl DO Primary Care Provider Laya Thompson ACADEMIC AFFAIRS COORDINATOR Unavailable Laya Thompson ACADEMIC AFFAIRS COORDINATOR Unavailable Encounter Details Date Type Department Care Team (Late st Contact Info) Description 01/17/2024 Abstract [facility] [address] [place] [address] Laya Thompson ACADEMIC AFFAIRS COORDINATOR [address] [place] [address] Social History Tobacco Use Types Packs/Day Years Used Date Smoking Tobacco: Former Cigarettes 0.5 15 1 04/08/1990 - 02/06/2006 Smokeless Tobacco: Never Comments:Last smoked: more t brennan 10 years ago Alcohol Use Standard Drinks/Week Comments Yes 1 (1 standard drink = 0.6 oz pure alcohol) I drink a beer once a week, Caffeine intake: 1-2 cups per day coffee Humiliation, Afraid, Rape, and Kick questionnair e [...] week 01/18/2023 How often do you attend chur or hoahaoism services? More than 4 times per year 01/18/2023 Do you belong to any clubs o r organizations such as holiness groups, unions, fraternal or athletic groups, or [...] Date Recorded Patient Health Questionnaire-2 Score 0 05/21/2023 [facility] of Occupat ional Health - Occupational Stress [...] place to sleep or slept in a senior care (including now)? No 01/18/2023 Sex and Gender [...] Family Medicine [address] [place] [address] Laya Thompson NP [address] [place] [address] 04/20/2025 11:00 AM EST Office Visit [facility] [address] [place] [address] Nicol Ballard, PAPI [address] [place] [address] documented as of this encounter Visit Diagnoses Not on filedocumented in this encounter Care Teams Farm Demonstrator Relationship Specialty Start Date End Date Colby Whitfield DO [address] [place] [address] PCP - General Family Medicine 10/14/22 Laya Thompson NP [address] [place], [place] [phone] PCP - ACO Reach 01/04/24 Laya Thompson NP [address] [place], [place] [phone] Nurse Practitioner Family Medicine 10/14/22 documented as of this encounter
--- OUTSIDE RECORDS SUMMARY | 2025-01-22 10:19 | XMS_ITS | Encounter Summary ---
Author Organization [facility] Address [address] [place] [address] Care Team Providers Care Primary Substance Abuse Counselor Name Role Phone Roseann Colby Pearl DO Primary Care Provider Laya Thompson DIRECTOR AGENCY & STRATEGIC PARTNERSHIPS Unavailable Laya Thompson DIRECTOR AGENCY & STRATEGIC PARTNERSHIPS Unavailable Encounter Details Date Type Department Care Team (Late st Contact Info) Description 01/03/2025 Abstract [facility] [address] [place] [address] Laya Thompson DIRECTOR AGENCY & STRATEGIC PARTNERSHIPS [address] [place] [address] Social History Tobacco Use Types [...] How often do you attend chur or roman catholic services? More than 4 times per year 09/04/2024 Do you belong to any clubs o r organizations such as methodist groups, unions, fraternal or athletic groups, or [...] Recorded Patient Health Questionnaire-2 Score 0 05/08/2024 [facility] of Occupat ional Health - Occupational Stress [...] a senior care (including now)? No 01/18/2023 Housing Stability Vital [...] any time in the past 12 m [facility], were you homeless or living in a senior care (including now)? No 09/04/2024 Sex and Gender [...] Family Medicine [address] [place] [address] Laya Thompson, DIRECTOR AGENCY & STRATEGIC PARTNERSHIPS [address] [place], [place] [phone] 04/20/2025 11:00 AM EST Office Visit [facility] [address] [place] [address] Nicol Ballard, PA [address] [place] [address] documented as of this encounter Visit Diagnoses Not on filedocumented in this encounter Care Teams Primary Substance Abuse Counselor Relationship Specialty Start Date End Date Colby Whitfield DO [address] [place], [place] [phone] PCP - General Family Medicine 10/14/22 Laya Thompson, DIRECTOR AGENCY & STRATEGIC PARTNERSHIPS [address] [place], [place] [phone] PCP - ACO Reach 01/04/24 Laya Thompson, DIRECTOR AGENCY & STRATEGIC PARTNERSHIPS [address] [place] [address] Nurse Practitioner Family Medicine 10/14/22 documented as of this encounter
--- OUTSIDE RECORDS SUMMARY | 2025-01-22 10:19 | XMS_ITS | Encounter Summary ---
Author Organization [facility] Address [address] [place] [address] Care Team Providers Care Manager Licensing Name Role Phone Colby Whitfield DO Primary Care Provider [phone]- [phone] Laya Thompson REHABILITATION LIAISON Unavailable Laya Thompson REHABILITATION LIAISON Unavailable Encounter Details Date Type Department Care Team (Late st Contact Info) Description 04/13/2024 Orders Only [facility] [address] [place] [address] Unallocated, [facility], [address] [place] [address] Social History Tobacco Use Types Packs/Day Years [...] How often do you attend chur or spiritism services? More than 4 times per year 01/18/2023 Do you belong to any clubs o r organizations such as jain groups, unions, fraternal or athletic groups, or [...] Recorded Patient Health Questionnaire-2 Score 0 05/21/2023 [facility] of Occupat ional Health - Occupational [...] in a long term (including now)? No 01/18/2023 Sex and Gender [...] Family Medicine [address] [place] [address] Laya Thompson NP [address] [place] [address] 04/20/2025 11:00 AM EST Office Visit [facility] [address] [place] [address] Nicol Ballard, PAPI [address] [place] [address] documented as of this encounter Procedures Procedure Name Priority Date/Time Associated Diagnosis Comments MRI SHOULDER LT WO W CON Routine 04/13/2024 10:34 AM EST documented in this encounter Results * MRI SHOULDER LT WO W CON (04/13/2024 10:34 AM EST) Anatomical Region Laterality Modality Radiographic Norma ging us [facility] Provider Unallocated MD DALTON XR PROCEDURES F inal Result documented in this encounter Visit Diagnoses Not on filedocumented in this encounter Care Teams Manager Licensing Relationship Specialty Start Date End Date Colby Whitfield DO [address] [place] [phone] PCP - General Family Medicine 10/14/22 Laya Thompson NP [address] [place] [address] PCP - ACO Reach 01/04/24 Laya Thompson NP [address] [place] [address] Nurse Practitioner Family Medicine 10/14/22 documented as of this encounter
--- OUTSIDE RECORDS SUMMARY | 2025-01-22 10:19 | XMS_ITS | Encounter Summary ---
Author Organization [facility] Address [address] [place] [address] Care Team Providers Care Quality Assurance Specialist Name Role Phone Colby Whitfield DO Primary Care Provider [phone] Laya Thompson DYEING MACHINE FEEDER Unavailable Laya Thompson DYEING MACHINE FEEDER Unavailable Encounter Details Date Type Department Care Team (Late st Contact Info) Description 06/12/2024 Orders Only [facility] [address] [place] [address] Social History Tobacco Use Types Packs/Day Years [...] 01/18/2023 How often do you attend chur ch or bahai services? More than 4 times per year 01/18/2023 Do you belong to any clubs o r organizations such as nondenominational groups, unions, fraternal or athletic groups, or [...] Recorded Patient Health Questionnaire-2 Score 0 05/08/2024 [facility] - Occupational Stress Questionnaire Answer Date Recorded [...] in a alf (including now)? No 01/18/2023 Sex and Gender [...] Family Medicine [address] [place] [address] Laya Thompson, MERCEDES [address] [place] [address] 04/20/2025 11:00 AM EST Office Visit [facility] [address] [place] [address] Nicol Ballard, PA [address] [place] [address] documented as of this encounter Procedures Procedure Name Priority Date/Time Associated Diagnosis Comments DIABETIC RETINOPATHY SCREENING - OU - BOTH EYES Routine 06/25/2023 10:18 AM EDT documented in this encounter Results * Diabetic Retinopathy Screening - OU - Both Eyes (06/25/2023 10:18 AM EDT) RESULTS NDR Anatomical Region Laterality Modality Head Other us N[facility] Tsr Nurse OPHTH PHOTOGRAPHY Edited Resul t - Final documented in this encounter Visit Diagnoses Not on filedocumented in this encounter Care Teams Quality Assurance Specialist Relationship Specialty Start Date End Date Colby Whitfield DO [address] [place] [phone] PCP - General Family Medicine 10/14/22 Laya Thompson DYEING MACHINE FEEDER [address] [place] [address] PCP - ACO Reach 01/04/24 Laya Thompson DYEING MACHINE FEEDER [address] [place] [address] Nurse Practitioner Family Medicine 10/14/22 documented as of this encounter
--- OUTSIDE RECORDS SUMMARY | 2025-01-22 10:19 | XMS_ITS | Encounter Summary ---
Author Organization [facility] Address [address] [place] [address] Care Team Providers Care Chinese Instructor Name Role Phone RoseannColby leal Ryanne HARRIS Primary Care Provider [phone]- [phone] Encounter Details Date Type Department Care Team (Late st Contact Info) Description 02/08/2013 FollowUp Telephone Encounter F Diabetic Education and Nursing [address] [phone] Allison Cevallos, RN, BSN Social History Tobacco [...] Notes * Allison Cevallos RN, BSN - 02/08/2013 10:51 AM EST Called pt for follow up call. Reports he is doing well. His last A1C was 7.2. He reports his insulin dose was increased to 24 units of Levemir. He continues on Metformin and Amaryl also. Pt denies any questions today. Denies any episodes of hypoglycemia. Continues to remain very active. Encouraged to call with questions or concerns. documented in this encounter Plan of Treatment Not on file documented as of this encounter Visit Diagnoses Not on filedocumented in this encounter Care Teams Chinese Instructor Relationship Specialty Start Date End Date Colby Whitfield DO [address] [place] [address] PCP - General Family Medicine 11/24/16 documented as of this encounter
--- OUTSIDE RECORDS SUMMARY | 2025-01-22 10:19 | XMS_ITS | Encounter Summary ---
Author Organization [facility] Address [address] [place] [address] Care Team Providers Care Nurse Special Name Role Phone Colby Whitfield DO Primary Care Provider [phone] Encounter Details Date Type Department Care Team (Late st Contact Info) Description 04/22/2020 Transcribe Orders [facility] [address] [phone] Toby Ames DO [address] [phone] Impingement syndrome of right shoulder (Primary Dx) [...] as of this encounter Visit Diagnoses Diagnosis Impingement syndrome of right shoulder- Primary Other affections of shoulder region, not elsewhere classified documented in this encounter Additional Health Concerns Assessment Noted Time A fall risk assessment has been complete d for the patient 12/15/2016 9:17 AM EDT documented as of this encounter Care Teams Nurse Special Relationship Specialty Start Date End Date Colby Whitfield DO [address] [place] [address] PCP - General Family Medicine 11/24/16 documented as of this encounter
--- OUTSIDE RECORDS SUMMARY | 2025-01-22 10:20 | XMS_ITS | Encounter Summary ---
Author Organization [facility] Address [address] [place] [address] Care Team Providers Care Delinquent Notice Machine Operator Name Role Phone System, Provider Not In Primary Care Provider Un available Colby Whitfield DO Primary Care Provider Laya Thompson PRODUCTION CONTROL EXPEDITER Unavailable Colby Whitfield DO Unavailable Laya Thompson PRODUCTION CONTROL EXPEDITER Unavailable Encounter Details Date Type Department Care Team (Late st Contact Info) Description 08/28/2022 Abstract [facility] [address] [place] [address] Nicol Ballard PA [address] [facility] [address] [place] [address] Social History Tobacco Use Types Packs/Day Years Used Date Smoking Tobacco: Former Cigarettes Tobacco Cessation:Counseling Given: Not Answered Comments:Last smoked: more than 10 years ago [...] Family Medicine [address] [place] [address] Laya Thompson, PRODUCTION CONTROL EXPEDITER [address] [place], [place] [phone] 04/20/2025 11:00 AM EST Office Visit [facility] [address] [facility] [place] [address] Nicol Ballard, PA [address] [place] [address] documented as of this encounter Visit Diagnoses Not on filedocumented in this encounter Care Teams Delinquent Notice Machine Operator Relationship Specialty Start Date End Date System, Provider Not In PCP - General 09/01/22 10/13/22 Colby Whitfield DO [address] [place] [phone] PCP - General Family Medicine 10/14/22 Colby Whitfield DO [address] [place], [place] [phone] PCP - ACO Reach 06/04/23 01/03/24 Laya Thompson, PRODUCTION CONTROL EXPEDITER [address] [place], [place] [phone] PCP - ACO Reach 01/04/24 Laya Thompson, PRODUCTION CONTROL EXPEDITER [address] [place] [address] Nurse Practitioner Family Medicine 10/14/22 documented as of this encounter
[2025-01-22 10:32] VITALS: BP 141/70; PULSE 61; TEMP 36.8; O2SAT 94
[2025-01-22 11:15] VITALS: BP 122/61; BP 123/64; PULSE 60; PULSE 62; O2SAT 96; O2SAT 98
[2025-01-22] MEDS: BUPIVACAINE HCL 0.25% PF 25 MG/10 ML VIAL 2 ML INJ (11:16)
[2025-01-22] MEDS: METHYLPREDNISOLONE ACETATE 40 MG/ML VIAL INJ (11:16)
[2025-01-22] MEDS: LIDOCAINE HCL 2% 400 MG/20 ML MDV INJ (11:16)
--- NOTE | 2025-01-22 11:19 | W.PM.PROCNOT ---
Date of procedure: 01/22/25 Pre-op diagnosis: Pain due to left shoulder osteoarthritis Post-op diagnosis: same as pre-op Procedure: Procedure: Left suprascapular and axillary nerve block Medications: Bupivacaine 0.25% 3cc, depomedrol 40mg The patient was seen and examined in the preoperative holding area. Informed consent was obtained and placed on the chart.? The patient was brought to the medical procedure unit and placed in the prone position. A timeout was completed verifying correct patient, procedure site, positioning, plan, and special equipment.? Using aseptic technique, under direct fluoroscopic visualization, a 25-gauge 3-1/2 inch spinal needle was advanced to the superior portion of the left posterior osseous rim of the glenoid fossa, lateral and superior to the spinal glenoid notch.? 0.5 cc of the above solution was injected.? The needle was then redirected 3 mm inferiorly and another 0.5 cc of the above medication was injected.? This needle was then removed.? Using aseptic technique, under direct fluoroscopic visualization, another 25-gauge 3-1/2 inch spinal needle was advanced toward the most inferior and lateral border of the greater tubercle.? 0.5 cc of the above medication was administered.? The needle was then redirected 3 mm inferiorly.? 0.5 cc was administered in this region.? This needle was removed. ? The patient was taken to the postprocedural recovery area and monitored for an appropriate length of time before being found suitable for discharge in the accompaniment of a responsible adult. Anesthesia: Local Surgeon: Ponce Fuentes Pathology: none sent Condition: stable Disposition: no change
== END 2025-01-22 11:22 | disposition home or self-care (01) ==
PROVIDERS: PCP Nurse Practitioner; Visit Provider Anesthesiology
DX: M19.012 Primary osteoarthritis, left shoulder (principal); M25.512 Pain in left shoulder; E11.8 Type 2 diabetes mellitus with unspecified complications; Z79.85 Long-term (current) use of injectable non-insulin antidiabetic drugs; Z79.84 Long term (current) use of oral hypoglycemic drugs
CPT/HCPCS: 36415; 64417; 64418; 82948; J0665; J1010

== ENCOUNTER 2025-01-31 09:32 | Outpatient (OUT) | payer MEDICARE, OTHER, SELFPAY ==
--- OUTSIDE RECORDS SUMMARY | 2025-01-31 09:35 | XMS_ITS | Encounter Summary ---
Author Organization [facility] Address [address] [place] [address] Care Team Providers Care Paper Sealer Name Role Phone Colby Whitfield DO Primary Care Provider Laya Thompson BRAND STRATEGY MANAGER Unavailable Laya Thompson BRAND STRATEGY MANAGER Unavailable Encounter Details DateTypeDepartmentCare Team (Latest Contact Info)Ewbxugciddh64/26/2025Telephone [facility] [address] [place] [address] Laya Thompson, BRAND STRATEGY MANAGER [address] [place] [address] Social History Tobacco UseTypesPacks/DayYears UsedDateSmoking Tobacco: FormerCigarettes0.515 02/06/1991 - 02/06/2006Smokeless Tobacco: Never Comments:Last smoked: more t brennan 10 years ago Alcohol UseStandard Drinks/WeekCommentsYes1 (1 standard drink = 0.6 oz pure alcohol)I drink a beer once a [id number] Health LiteracyAnswerDate RecordedHow often do you need to have someone help you when you read instructions, pamphlets, or other written material from your doctor or pharmacy?Never 09/04/2024Humiliation, Afraid, Rape, and Kick questionnaireAnswerDate Recorded Within the last year, have you been afraid of your partner or ex-partner?No 09/04/2024Within the last year, have you been humiliated or emotionally abused in other ways by your partner or ex-partner?No09/04/2024Within the last year, have you been kicked, hit, slapped, or otherwise physically hurt by your partner or ex-partner?No09/04/2024Within the last year, have you been raped or forced to have any kind of sexual activity by your partner or ex-partner?No09/04/2024 Social Connection and Isolation PanelAnswerDate RecordedIn a typical week, how many times do you talk on the phone with family, friends, or neighbors?More than three times a week09/04/2024How often do you get together with friends or relatives?Once a week09/04/2024How often do you attend latter day or adventism services?More than 4 times per year09/04/2024Do you belong to any clubs or organizations such as latter day groups, unions, fraternal or athletic groups, or school groups?Yes09/04/2024How often do you attend meetings of the clubs or organizations you belong to?More than 4 times per year09/04/2024re you , , , , never , or living with a partner? 09/04/2024UDIT-CAnswerDate RecordedQ1: How often do you have a drink containing alcohol?2-4 times a month09/04/2024Q2: How many drinks containing alcohol do you have on a typical day when you are drinking?1 or Q3: How often do you have six or more drinks on one occasion?Never09/04/2024Overall Financial Resource Strain (CARDIA)AnswerDate RecordedHow hard is it for you to pay for the very basics like food, housing, medical care, and heating?Not very hard 09/04/2024PHQ-2AnswerDate RecordedPatient Health Questionnaire-2 Score0 05/08/2024[facility] [place] of Occupational Health - Occupational Stress QuestionnaireAnswerDate RecordedDo you feel stress - tense, restless, nervous, or anxious, or unable to sleep at night because yourmind is troubled all the time - these days?Not at all09/04/2024Exercise Vital SignAnswerDate RecordedOn average, how many days per week do you engage in moderate to strenuous exercise (like a brisk walk)?5 days09/04/2024On average, how many minutes do you engage in exercise at this level?Patient fcftdpwu06/02/2025Hunger Vital SignAnswerDate RecordedWithin the past 12 months, you worried that your food would run out before you got the money to buymore.Never true09/04/2024Within the past 12 months, the food you bought just didn't last and you didn't have money to get more.Never true09/04/2024PRAPARE - TransportationAnswerDate RecordedIn the past 12 months, has lack of transportation kept you from medical appointments or from getting medications?No09/04/2024In the past 12 months, has lack of transportation kept you from meetings, work, or from getting things needed for daily living?No09/04/2024Housing Stability Vital SignAnswerDate RecordedIn the last 12 months, was there a time when you were not able to pay the mortgage or rent on time?No01/18/2023In the last 12 months, how many places have you lived?1 01/18/2023In the last 12 months, was there a time when you did not have a steady place to sleep or slept [facility] (including now)?No01/18/2023Housing Stability Vital SignAnswerDate RecordedIn the last 12 months, was there a time when you were not able to pay the mortgage or rent on time?Patient declined 09/04/2024In the past 12 months, how many times have you moved where you were living?t any time in the past 12 months, were you homeless or living in a fdc (including now)?No09/04/2024Sex and Gender InformationValueDate RecordedSex Assigned at BirthNot on fileLegal PdnZbsd8306/17/2022 6:52 PM EDT Gender IdentityNot on fileSexual OrientationNot on filedocumented as of this encounter Miscellaneous Notes * Telephone Encounter - Laya Thompson NP - 01/28/2025 9:17 PM EDT New rx for lancets sent per pts e request documented in this encounter Plan of Treatment DateTypeDepartmentCare Team (Latest Contact Info)Lkksgwpzpol62/24/2025 10:30 AM ESTOffice Visit [facility] [address] [place] [phone] Laya Thompson NP [address] [place], [place] [address] 04/20/2025 11:00 AM ESTOffice Visit [facility] [address] [place] [address] Nicol Ballard, PA [address] [place] [address] documented as of this encounter Visit Diagnoses Diagnosis Type 2 diabetes mellitus treated with insulin (HCC)- Primary documented in this encounter Care Teams Team MemberRelationshipSpecialtyStart DateEnd Date Colby Whitfield DO [address] [place] [address] PCP - GeneralFamily Medicine10/14/22 Laya Thompson NP [address] [place] [address] PCP - ACO Reach01/04/24 Laya Thompson NP [address] [place] [address] Nurse PractitionerFamily Medicine10/14/22documented as of this encounter
--- OUTSIDE RECORDS SUMMARY | 2025-01-31 09:35 | XMS_ITS | Encounter Summary ---
Author Organization [facility] Address [address] [place] [address] Care Team Providers Care Animal Care Service Worker Name Role Phone Roseann, Colby Pearl DO Primary Care Provider Laya Thompson DETECTIVE INVESTIGATOR Unavailable Laya Thompson DETECTIVE INVESTIGATOR Unavailable Encounter Details DateTypeDepartmentCare Team (Latest Contact Info)Mylfhkyopas69/20/2025bstract [facility] [address] [place] [address] Laya Thompson, DETECTIVE INVESTIGATOR [address] [place] [address] Social History Tobacco UseTypesPacks/DayYears UsedDateSmoking Tobacco: FormerCigarettes0.515 02/06/1991 - 02/06/2006Smokeless Tobacco: Never Comments:Last smoked: more t brennan 10 years ago Alcohol UseStandard Drinks/WeekCommentsYes1 (1 standard drink = 0.6 oz pure alcohol)I drink a beer once a [id number] Health LiteracyAnswerDate RecordedHow often do you need [...] relatives?Once a week09/04/2024How often do you attend jehovah's witness or evangelical services?More than 4 times per year09/04/2024Do you belong to any clubs or organizations such as jehovah's witness groups, unions, fraternal or athletic groups, or [...] very hard 09/04/2024PHQ-2AnswerDate RecordedPatient Health Questionnaire-2 Score0 05/08/2024[facility] [place] [facility] - Occupational Stress QuestionnaireAnswerDate [...] you engage in exercise at this level?Patient vlrwupnq34/02/2025Hunger Vital SignAnswerDate RecordedWithin the past 12 months, [...] steady place to sleep or slept in [facility] (including now)?No01/18/2023Housing Stability Vital SignAnswerDate RecordedIn the last 12 months, was there a time when you were not able to pay the mortgage or rent on time?Patient declined 09/04/2024In the past 12 months, how many times have you moved where you were living?t any time in the past 12 months, were you homeless or living in a snf (including now)?No09/04/2024Sex and Gender InformationValueDate RecordedSex Assigned at BirthNot on fileLegal JpxFbjr2606/17/2022 6:52 PM EDT Gender IdentityNot on fileSexual OrientationNot on filedocumented as of this encounter Plan of Treatment DateTypeDepartmentCare Team (Latest Contact Info)Kkdkbbwacso01/24/2025 10:30 AM ESTOffice Visit [facility] [address] [place] [phone] Laya Thompson, DETECTIVE INVESTIGATOR [address] [place] [address] 04/20/2025 11:00 AM ESTOffice Visit [facility] [address] [place] [address] Nicol Ballard, PA [address] [place] [address] documented as of this encounter Visit Diagnoses Not on filedocumented in this encounter Care Teams Team MemberRelationshipSpecialtyStart DateEnd Date Colby Whitfield, [address] [place], [place] [phone] PCP - GeneralFamily Medicine10/14/22 Laya Thompson, DETECTIVE INVESTIGATOR [address] [place] [address] PCP - ACO Reach01/04/24 Laya Thompson, DETECTIVE INVESTIGATOR [address] [place] [address] Nurse PractitionerFamily Medicine10/14/22documented as of this encounter
--- OUTSIDE RECORDS SUMMARY | 2025-01-31 09:35 | XMS_ITS | Encounter Summary ---
Author Organization [facility] Address [address] [place] [address] Care Team Providers Care Insulation Applicator Name Role Phone Colby Whitfield DO Primary Care Provider [phone]- [phone] Laya Thompson FOREIGN LANGUAGES DEPARTMENT CHAIR Unavailable Laya Thompson FOREIGN LANGUAGES DEPARTMENT CHAIR Unavailable Reason for Visit * ReasonOnset DateCommentsMed Wselbe9901/26/2025 Encounter Details DateTypeDepartmentCare Team (Latest Contact Info)Ifkbncqatko23/24/2025Refill [facility] [address] [place] [address] Deidra Burnette MA Type 2 diabetes mellitus without complication, without long-term current use of insulin (HCC) Social History Tobacco UseTypesPacks/DayYears UsedDateSmoking Tobacco: FormerCigarettes0.515 02/06/1991 - 02/06/2006Smokeless Tobacco: Never Comments:Last smoked: more t brennan 10 years ago Alcohol UseStandard Drinks/WeekCommentsYes1 (1 standard drink = 0.6 oz pure alcohol)I drink a beer once a [id number] Health LiteracyAnswerDate RecordedHow often do you need [...] relatives?Once a week09/04/2024How often do you attend synagogue or tenriism services?More than 4 times per year09/04/2024Do you belong to any clubs or organizations such as synagogue groups, unions, fraternal or athletic groups, or [...] very hard 09/04/2024PHQ-2AnswerDate RecordedPatient Health Questionnaire-2 Score0 05/08/2024[facility] [place] of Occupational Health - Occupational Stress QuestionnaireAnswerDate [...] you engage in exercise at this level?Patient /02/2025Hunger Vital SignAnswerDate RecordedWithin the past 12 months, [...] steady place [facility] sleep [facility] ([facility])?No01/18/2023Housing Stability Vital SignAnswerDate RecordedIn the last 12 months, was there a time when you were not able to pay the mortgage or rent on time?Patient declined 09/04/2024In the past 12 months, how many times have you moved where you were living?t any time in the past 12 months, were you homeless or living in a correction (including now)?No09/04/2024Sex and Gender InformationValueDate RecordedSex Assigned at BirthNot on fileLegal ExqZhtj2906/17/2022 6:52 PM EDT Gender IdentityNot on fileSexual OrientationNot on filedocumented as of this encounter Miscellaneous Notes * Telephone Encounter - Deidra Burnette MA - 01/26/2025 11:03 AM EDT Pt requesting refill on his lancets. He is requesting the Rx state that he is using them 3 times daily as he was instructed to do extra testing. documented in this encounter Plan of Treatment DateTypeDepartmentCare Team (Latest Contact Info)Bixqrcwzojo17/24/2025 10:30 AM ESTOffice Visit [facility] [address] [facility] [place] [phone] Laya Thompson, FOREIGN LANGUAGES DEPARTMENT CHAIR [address] [place] [address] 04/20/2025 11:00 AM ESTOffice Visit [facility] [address] [facility] [place] [phone] Nicol Ballard, PA [address] [place] [address] documented as of this encounter Visit Diagnoses Diagnosis Type 2 diabetes mellitus without complication, without long-term current use of insulin (HCC) documented in this encounter Care Teams Team MemberRelationshipSpecialtyStart DateEnd Date Colby Whitfield DO [address] [place] [address] PCP - GeneralFamily Medicine10/14/22 Laya Thompson, FOREIGN LANGUAGES DEPARTMENT CHAIR [address] [place] [address] PCP - ACO Reach01/04/24 Laya Thompson, FOREIGN LANGUAGES DEPARTMENT CHAIR [address] [place], [place] [id number] Nurse PractitionerFamily Medicine10/14/22documented as of this encounter
--- OUTSIDE RECORDS SUMMARY | 2025-01-31 09:35 | XMS_ITS | Clinical Summary ---
Author Organization [facility] Address [address] [place] [address] Care Team Providers Care Senior Java Programmer Analyst Name Role Phone Colby Whitfield DO Primary Care Provider +- [phone] Laya Thompson SORT WORKER Unavailable Lyaa Thompson SORT WORKER Unavailable Allergies No known active allergies Medications MedicationSigDispense QuantityRefillsLast FilledStart DateEnd DateStatus zinc 30 MG tablet 1 (one) time each day at the same timeActive Multiple Vitamins-Minerals (Multivitamin Adults 50+) tablet 1 (one) time each day at the same timeActive Melatonin 3-10 MG tablet Active cholecalciferol (Vitamin D-3) 50 MCG (1999) tablet 1 (one) time each day at the same timeActive aspirin 81 MG EC tablet 1 (one) time each day at the same timeActive Ascorbic Acid (Vitamin C) 500 MG capsule 1 (one) time each day at the same timeActive Apple Cider Vinegar 600 MG capsule Take 1 tablet by mouth every 8 (eight) hoursActive insulin degludec (Tresiba FlexTouch) 200 UNIT/ML injection Indications:Type 2 diabetes mellitus with other specified complication, unspecified whether skilled nursing insulin use (HCC)Inject 34 Units under the skin in the morning and 34 Units before bedtime. 27 mL 5Active famotidine (Pepcid) 20 MG tablet Indications:Chronic GERDTake 1 tablet (20 mg) by mouth in the morning and 1 tablet (20 mg) before bedtime. 180 tablet 5Active glucose blood test strip Indications:Type 2 diabetes mellitus without complication, without long-term current use of insulin (HCC)Daily testing 100 each 5Active loratadine (Claritin) 10 MG tablet Indications:Environmental and seasonal allergiesTake 1 tablet (10 mg) by mouth Daily 90 tablet 5Active amoxicillin (Amoxil) 500 MG capsule Take 500 mg by mouth5Active SITagliptin (Januvia) 100 MG tablet Indications:Type 2 diabetes mellitus with complication (HCC)Take 1 tablet (100 mg) by mouth Daily 90 tablet 5Active omeprazole (PriLOSEC) [address] capsule Indications:Chronic GERDTake 1 capsule (20 mg) by mouth 1 (one) time each day at the same time 90 capsule 5Active fluticasone (Flonase) 50 MCG/ACT nasal spray Indications:Environmental and seasonal allergiesAdminister 1 spray into each nostril Daily Shake gently. Before first use, prime pump. After use, clean tip and replace cap. 48 mL 5Active lisinopril 20 MG tablet Indications:Primary hypertensionTake 1 tablet (20 mg) by mouth in the morning and 1 tablet (20 mg) before bedtime. 180 tablet 5Active acetaminophen-codeine (Tylenol w/ Codeine #3) 300-30 MG tablet 5Active Misc Natural Products (OSTEO BI-FLEX ADV JOINT SHIELD PO) Take by mouthActive Bexagliflozin (Brenzavvy) 20 MG tablet Indications:Type 2 diabetes mellitus with complication (HCC)Take 20 mg by mouth Daily 90 tablet 5Active hydroCHLOROthiazide (HYDRODiuril) 25 MG tablet Indications:Primary hypertensionTake 1 tablet (25 mg) by mouth Daily 90 tablet 5Active rosuvastatin (Crestor) 10 MG tablet Indications:Mixed hyperlipidemiaTake 1 tablet (10 mg) by mouth Daily 30 tablet 6Active insulin aspart FlexPen (NovoLOG) 100 UNIT/ML pen Indications:Type 2 diabetes mellitus with complication (HCC)5 units Once daily before evening meal 1 each 5Active atenolol (Tenormin) 50 MG tablet Indications:Primary hypertensionTake 1 tablet (50 mg) by mouth Daily 90 tablet 5Active Lancet Devices (Autolet) lancing device Indications:Type 2 diabetes mellitus without complication, without long-term current use of insulin (HCC)Daily testing 100 each 3105Active Lancets [facility] Indications:Type 2 diabetes mellitus treated with insulin (HCC)1 Units 4 (four) times a day as needed (blood glucose monitoring with insulin) 100 each 1110/5Active atorvastatin (Lipitor) 40 MG tablet Indications:Mixed hyperlipidemiaTake 1 tablet (40 mg) by mouth Daily 90 tablet /04/2024Discontinued(Side effects) Bexagliflozin (Brenzavvy) 20 MG tablet Indications:Type 2 diabetes mellitus with complication (HCC)Take 20 mg by mouth Daily 90 tablet /04/2024Discontinued(Reorder) atenolol (Tenormin) 50 MG tablet Indications:Primary hypertensionTake 1 tablet (50 mg) by mouth Daily 90 tablet Discontinued(Reorder) Lancet Devices (Autolet) lancing device Indications:Type 2 diabetes mellitus without complication, without long-term current use of insulin (HCC)Daily testing 100 each /Discontinued(Reorder) hydroCHLOROthiazide (HYDRODiuril) 25 MG tablet Take 25 mg by mouth Daily01/03/2025Discontinued(Reorder) Insulin Lispro 100 UNIT/ML solution Indications:Type 2 diabetes mellitus with complication (HCC)Inject 5 Units as directed in the evening. Take before meals 10 mL /06/2024Discontinued(Therapy completed) insulin aspart FlexPen (NovoLOG) 100 UNIT/ML pen Indications:Type 2 diabetes mellitus with complication (HCC)Once daily before evening meal 1 each Discontinued(Reorder) Active Problems ProblemNoted DateDiagnosed DateArthritis, multiple joint yjgakxxbgyv67/17/2023 Chronic GERD10/19/2022PAP (continuous positive airway pressure) dependence 10/19/2022isc degeneration, oysutb1510/19/2022Mixed hhmhyzmiuvxaia16/17/2023 Environmental and seasonal muodwwjiu19/17/2023Lumbar kguutjduzga79/17/2023 Obstructive sleep apnea /17/2023Stage 3a chronic kidney disease 10/19/2022Vitamin D oplnfwvnge97/17/2023Type 2 diabetes mellitus with omhfrjpjbxva88/07/2017Primary ouzpmuaxvmci29/07/2017 Resolved Problems ProblemNoted DateDiagnosed DateResolved DateAge-related cataract of both eyes /4Arthritis of right acromioclavicular joint10/19/2022 4Chronic kidney disease, stage 2 (mild)/3Duodenitis /Erectile hwdbebwbjlx48/17/202306/03/2024Hypomagnesemia /02/2024Left carpal tunnel nhfdbzdt03Nontraumatic tear of right rotator cuff/4Primary osteoarthritis of right wrist/4Problems with lwpenerajb09/17/202306/4Rupture of right rotator cuff/4Diabetes mellitus without complication Rotator cuff syndrome of right ymfizdtv35/ Gastroesophageal reflux disease without xxxzpnuhqxb55 Dlvskiwaasrbmgesml67/07/201707/18/2023Sleep apneaType 2 diabetes iasibtam46iliary colic Encounters DateTypeDepartmentCare XntqTgedyctenmo91/26/2025Telephone [facility] [address] [place] [address] Laya Thompson NP 01/26/2025Refill [facility] [address] [place] [address] Deidra Burnette MA Type 2 diabetes mellitus without complication, without long-term current use of insulin ([facility])01/22/2025bstract [facility] [address] [place] [address] Laya Thompson, SORT WORKER 01/15/2025Telephone [facility] [address] [place] [address] Laya Thompson, SORT WORKER refill oyhtffdm02/09/2025Abstract [facility] [address] [place] [address] Laya Thompson, SORT WORKER 01/05/2025Refill [facility] [address] [place] [address] Laya Thompson, MERCEDES Type 2 diabetes mellitus with complication (HCC)01/05/2025Refill [place] [address] [place] [address] Laya Thompson, MERCEDES Type 2 diabetes mellitus with complication (HCC) (Primary Dx)01/04/2025bstract [facility] [address] [place] [address] Laya Thompson, SORT WORKER 01/03/2025 11:00 AM EDTOffice Visit [place] [address] [place] [address] Laya Thompson, MERCEDES Chronic left shoulder pain (Primary Dx); Mixed hyperlipidemia; Type 2 diabetes mellitus with complication (HCC); Stage 3a chronic kidney disease ([facility]); Primary odslytgznvfb69/01/2025bstract [place] [address] [place] [address] Laya Thompson, SORT WORKER 01/03/2025amboo flowsheet [place] [address] [place] [address] Laya Thompson, SORT WORKER 01/03/20253259Hkvrpr99/Orders Only [place] [address] [place] [address] Laya Thompson, SORT WORKER 12/21/2024Patient Outreach [facility] [address] [place] [phone] Haven Schmidt LPN 12/18/2024 11:00 AM EDTOffice Visit [facility] [address] [place] [phone] Bigg Dial DO Left shoulder pain, unspecified yvlzfredcz88/15/2025Refill [facility] [address] [place] [address] Oneida Noel MA Environmental and seasonal allergies; Primary miilbzeghlsi04/15/2025amboo flowsheet [facility] [address] [place] [address] Bigg Dial DO 12/18/20240047Fwepfh93/02/2025[facility]phone [facility] [address] [place] [address] Laya Thompson, SORT WORKER refill Omeprazolefrom Last 3 Months Immunizations ImmunizationAdministration DatesNext DueInfluenza, High Dose Seasonal, Preservative Free03/02/2018,01/07/2017Influenza, High-dose Seasonal, Quadrivalent, Preservative Free03/03/2022,01/01/2021Influenza, injectable, xjptxrunzkdq62/30/2016Influenza, injectable, quadrivalent, preservative free 02/22/2020,03/11/2015Influenza, trivalent, fiqrzkidzg02/21/2020Pneumococcal Conjugate PCV 13105/12/2014Pneumococcal Polysaccharide WQLU217505/02/2016 Family History Medical HistoryRelationNameCommentsCancerFatherRussell KentOtherFatherRussell Kentbladder cancerNo Known ProblemsMaternal GrandfatherNo Known ProblemsMaternal GrandmotherDiabetesMotherMae KentHeart diseaseMotherMae KentHypertensionMother Ellison KentNo Known ProblemsPaternal GrandfatherNo Known ProblemsPaternal GrandmotherDiabetesSiblingRelationNameStatusCommentsFatherRussell KentDeceased Maternal GrandfatherDeceasedMaternal GrandmotherDeceasedMotherMae KentDeceased Paternal GrandfatherDeceasedPaternal GrandmotherDeceasedSibling Social History Tobacco UseTypesPacks/DayYears UsedDateSmoking Tobacco: FormerCigarettes0.515 02/06/1991 - 02/06/2006Smokeless Tobacco: Never Tobacco Cessation:Counseling Given: No Comments:Last smoked: more than 10 years ago Alcohol UseStandard Drinks/WeekCommentsYes1 (1 standard drink = 0.6 oz pure alcohol)I drink a beer once a [id number] Health LiteracyAnswerDate RecordedHow often do you need [...] relatives?Once a week09/04/2024How often do you attend zoroastrian or adventism services?More than 4 times per year09/04/2024Do you belong to any clubs or organizations such as zoroastrian groups, unions, fraternal or athletic groups, or [...] very hard 09/04/2024PHQ-2AnswerDate RecordedPatient Health Questionnaire-2 Score0 05/08/2024[facility] [place] [facility] Health - Occupational Stress QuestionnaireAnswerDate [...] you engage in exercise at this level?Patient qimfusze92/02/2025Hunger Vital SignAnswerDate RecordedWithin the past 12 months, [...] steady place to sleep or slept in ashelter (including now)?No01/18/2023Housing Stability Vital SignAnswerDate RecordedIn the last 12 months, was there a time when you were not able to pay the mortgage or rent on time?Patient declined 09/04/2024In the past 12 months, how many times have you moved where you were living?t any time in the past 12 months, were you homeless or living in a retirement (including now)?No09/04/2024Sex and Gender InformationValueDate RecordedSex Assigned at BirthNot on fileLegal TtqJrbm5506/17/2022 6:52 PM EDT Gender IdentityNot on fileSexual OrientationNot on file Last Filed Vital Signs Vital SignReadingTime TakenCommentsBlood Vibhatxx530/5801/03/2025 11:07 AM EDT Lnaiq751601/03/2025 11:07 AM YUHKvarrmqszph40.9 ??C (96.7 ??F)01/03/2025 11:07 AM EDTRespiratory Qajc3748 11:07 AM EDTOxygen Laaomrlbgz80%01/03/2025 11:07 AM EDTInhaled Oxygen Concentration--Louamn64.6 kg (162 lb 3.2 oz)01/03/2025 11:07 AM HJBIyuhrh204.3 cm (5' 9 )01/03/2025 11:07 AM EDTBody Mass Index23.95 01/03/2025 11:07 AM EDT Plan of Treatment DateTypeDepartmentCare Team (Latest Contact Info)Pjjkdkoknil35/24/2025 10:30 AM ESTOffice Visit [facility] [address] [place] [address] Laya Thompson NP [address] [place] [address] 04/20/2025 11:00 AM ESTOffice Visit [facility] [address] [place] [address] Nicol Ballard, PA [address] [place] [address] Health MaintenanceDue DateLast DoneCommentsDTaP/Tdap/Td Vaccines (1 - Tdap) 1COVID-19 Vaccine (2 - 2024- season)503/1Diabetes: Urine Protein Fpszhgasm37/09/369649/12/2023, 08/12/2021, 05/30/2020, Additional history existsDiabetes: Hemoglobin A1C509/, 09/01/2024, 05/07/2024, Additional history existsMedicare Annual Wellness (AWV)05/08/2025 05/08/2024, 05/21/2023, 04/17/2021Influenza Vaccine (#1)611/, 01/01/2021, 02/22/2020, Additional history existsPostponed from 12/04/2024 (Patient Refused)Diabetes: Retinopathy Gcsxksktl71/26/07592106/28/2024, 06/25/2023, 12/10/2021, Additional history existsPneumococcal Vaccine: 65+ Years Xamyhsgtj52/28/2017, 03/11/2015HIB VaccinesAged OutNo longer eligible based on patient's age to complete this topicHPV VaccinesAged OutNo longer eligible based on patient's age to complete this topicHepatitis A VaccinesAged OutNo longer eligible based on patient's age to complete this topicHepatitis B VaccinesAged OutNo longer eligible based on patient's age to complete this topicIPV Vaccines Aged OutNo longer eligible based on patient's age to complete this topic Meningococcal B VaccineAged OutNo longer eligible based on patient's age to complete this topicMeningococcal VaccineAged OutNo longer eligible based on patient's age to complete this topicRotavirus VaccinesAged OutNo longer eligible based on patient's age to complete this topic Procedures Procedure NamePriorityDate/TimeAssociated DiagnosisCommentsHEMOGLOBIN Q6NMautlbp 12/26/2024 8:52 AM EDTPR ARTHROCENTESIS ASPIR&/INJ MAJOR JT/BURSA W/USRoutine 12/18/2024 10:47 AM EDT Left shoulder pain, unspecified chronicity PA ARTHROCENTESIS ASPIR&/INJ MAJOR JT/BURSA W/CUTwnosot20/15/2025 10:46 AM EDT Left shoulder pain, unspecified chronicity DIABETIC RETINOPATHY SCREENING - OU - BOTH FGRQHgdtycm65/26/2025 8:51 AM EDT MICROALBUMIN / CREATININE URINE DSJEOAdmtihb57/09/2024 Type 2 diabetes mellitus with complication (HCC) from Last 3 Months or Most Recently Relevant to Health Maintenance Results * (ABNORMAL) Hemoglobin A1c (12/26/2024 8:52 AM EDT)Specimen (Source)Anatomical Location / LateralityCollection Method / VolumeCollection TimeReceived Time BloodVenous blood specimen / Unknown Narrative Authorizing ProviderResult TypeResult StatusLaya Thompson [facility] BLOOD ORDERABLES Final Result * PA ARTHROCENTESIS ASPIR&/INJ MAJOR JT/BURSA W/US (12/18/2024 10:47 AM EDT) Jessica Sinha ARRT - 12/18/2024 10:47 AM EDT ASAEL Thoa 12/18/2024 3:39 PM L Inj/Asp: L subacromial bursa on 12/18/2024 10:47 AM Indications: pain Details: 25 G needle, ultrasound-guided Medications: 1 mL betamethasone acetate-betamethasone sodium phosphate 6 (3-3) MG/ML Consent was given by the patient. Authorizing ProviderResult TypeResult StatusBigg [facility]/BED[facility]IDE ORDERABLESFinal Result * PA ARTHROCENTESIS ASPIR&/INJ MAJOR JT/BURSA W/US (12/18/2024 10:46 AM EDT) Narrative Jessica Gipson ARRT - 12/18/2024 10:46 AM EDT ASAEL Thao 12/18/2024 3:39 PM L Inj/Asp: L glenohumeral on 12/18/2024 10:46 AM Indications: pain Details: 25 G needle, ultrasound-guided Medications: 1 mL betamethasone acetate-betamethasone sodium phosphate 6 (3-3) MG/ML Consent was given by the patient. Authorizing ProviderResult TypeResult StatusBigg [facility]/BED[facility]IDE ORDERABLESFinal Result * Diabetic Retinopathy Screening - OU - Both Eyes (06/28/2024 8:51 AM EDT) Anatomical RegionLateralityModalityHeadOther Narrative Authorizing ProviderResult TypeResult StatusRamseyri L Jay NPOPHTH PHOTOGRAPHY Final Result * Microalbumin / creatinine, urine ratio (01/12/2024)ComponentValueRef RangeTest MethodAnalysis TimePerformed AtPathologist SignatureMICROALBUMIN, URINE40.7 QUESTALB/CREAT WUCYW189.6QUESTURINE OXURO25UVISCYhcfwkpe (Source)Anatomical Location / LateralityCollection Method / VolumeCollection TimeReceived Time UrineUrine specimen obtained by clean catch procedure / Vayfpbn5501/12/2024 Narrative Authorizing ProviderResult TypeResult StatusGerri Jermain Thompson NPLAB URINE ORDERABLES Final ResultPerforming OrganizationAddressCity/State/ZIP CodePhone Number [facility] from Last 3 Months or Most Recently Relevant to Health Maintenance Insurance * Guarantor: Tony Starks AAccount TypeRelation to PatientDate of BirthPhone Billing AddressPersonal/MwitokZxrh72/20/1946 [address] [address] Advance Directives TypeDate RecordedPatient RepresentativeExplanationAdvance Directives and Living Will03/07/201902015616-03-98_SJP Care Teams Team MemberRelationshipSpecialtyStart DateEnd Date Colby Whitfield DO [address] [place] [phone] PCP - GeneralFamily Medicine10/14/22 Laya Thompson, SORT WORKER [address] [place] [address] PCP - ACO Reach01/04/24 Laya Thompson SORT WORKER [address] [place] [address] Nurse PractitionerFamily Medicine10/14/22
--- OUTSIDE RECORDS SUMMARY | 2025-01-31 09:51 | XMS_ITS | CCD ---
Author Organization [facility] Care Team Providers Care Goat Farmer Name Role Phone Daniel Pop Primary Care Provider [phone] KESHAWN, DR OTF Villatoro Consulting Unavailable JOO, [...] Unavailable JOO, DR ABNER Saini Admitting Unavailable DANIEL POP Primary Care Unavailable PREETHI SHAVER Referring Unavailable DANIEL POP Primary Care Unavailable LAYA PLATA Referring Unavailable DANIEL POP Primary Care Unavailable PREETHI SHAVER Referring Unavailable DANIEL POP Primary Care Unavailable PREETHI SHAVER Referring Unavailable Daniel Pop DO Primary Care Provider Jay REFUELING RAMP ATTENDANT, Laya L Unavailable Jay REFUELING RAMP ATTENDANT, Laya L Unavailable Daniel Pop DO Unavailable RAMSEY PLATARI L Attending Unavailable BIGG BOWENS Attending Unavailable BIGG BOWENS Referring Unavailable BIGG BOWENS Attending Unavailable BIGG BOWENS Referring Unavailable RAMSEY PLATARI Jermain Attending Unavailable BIGG BOWENS Attending Unavailable BIGG BOWENS Referring Unavailable PALMA SALGADO Attending Unavailable LAYA PLATA Attending Unavailable PALMA SALGADO Attending Unavailable PRETTY MORELAND Referring Unavailable PRETTY MORELAND Attending Unavailable LAYA PLATA Attending Unavailable Alfredo HARRIS, Ponce Mackenzie Attending Unavailable Medications Current Medications MedicationDrug Class(es)DatesSig (Normalized)Sig (Original)acetaminophen 300 mg / codeine phosphate 30 mg oral tablet (20 sources)Opioid AgonistStart: 28-06-0136bxqifmbflplmv-codeine (Tylenol w/ Codeine #3) 300-30 MG tablet 11/10/2024 ActiveStart: 04-12-2024 End: 99-89-6606evghtyxniuutf-codeine (Tylenol w/ Codeine #3) 300-30 MG tablet 04/12/2024 09/05/2024 Discontinued (Therapy completed)acetaminophen 325 mg / oxyCODONE hydrochloride 5 mg oral tablet (2 sources)Opioid AgonistStart: 05-09-2020 End: 22-16-1572rvdw 1-2 tablets by mouth every six hours as needed for pain oxyCODONE-acetaminophen (PERCOCET) 5-325 MG per tablet Indications: Rotator cuff syndrome of right shoulder Take 1-2 tablets by mouth every 6 hours as needed for Pain for up to 3 days. 40 tablet 0 05/09/2020 05/12/2020 Activeamoxicillin 500 mg oral capsule (16 sources)Penicillin-class AntibacterialStart: 39-17-8873eyiodhuqtbw (Amoxil) 500 MG capsule Take 500 mg by mouth 08/17/2024 Activeapple cider vinegar 600 mg oral capsule (20 sources)take 1 capsule by mouth every eight hoursApple Cider Vinegar 600 MG capsule Take 1 tablet by mouth every 8 (eight) hours ActiveAPPLE CIDER VINEGAR PO Take by mouth 0 Activeascorbic acid 500 mg oral capsule (20 sources)Vitamin CAscorbic Acid (Vitamin C) 500 MG capsule 1 (one) time each day at the same time Activeaspirin 81 mg delayed release oral tablet (20 sources)Platelet Aggregation Inhibitor, Nonsteroidal Anti-inflammatory Drug aspirin 81 MG EC tablet 1 (one) time each day at the same time Activetake 1 tablet by mouth once dailyaspirin 81 MG tablet Take 81 mg by mouth daily. 0 Activeatenolol 50 mg oral tablet (20 sources)beta-Adrenergic BlockerStart: 07-19-2023 End: 21-37-1325ntyz 1 tablet by mouth once dailyatenolol (Tenormin) 50 MG tablet Indications: Primary hypertension Take 1 tablet (50 mg) by mouth Daily 90 tablet 1 01/15/2025 Activetake 1 tablet by mouth once dailyatenolol (TENORMIN) 50 MG tablet Take 50 mg by mouth daily. 0 ActiveBexagliflozin (Brenzavvy) 20 MG tablet (20 sources)Start: 32-52-3375kcja 1 tablet by mouth once dailyBexagliflozin (Brenzavvy) 20 MG tablet Indications: Type 2 diabetes mellitus with complication (HCC) Take 20 mg by mouth Daily 90 tablet 3 01/03/2025 ActiveStart: 01-17-2024 End: 93-14-9760cdos 1 tablet by mouth once dailyBexagliflozin (Brenzavvy) 20 MG tablet Indications: Type 2 diabetes mellitus with complication (HCC) Take 20 mg by mouth Daily 90 tablet 3 01/17/2024 01/03/2025 Discontinued (Reorder)Start: 67-69-6626dqlq 1 tablet by mouth once dailyBexagliflozin (Brenzavvy) 20 MG tablet Indications: Type 2 diabetes mellitus with complication (HCC) Take 20 mg by mouth Daily 90 tablet 3 01/17/2024 ActiveStart: 50-61-2923fmmx 1 tablet by mouth once dailyBexagliflozin (Brenzavvy) 20 MG tablet Indications: Type 2 diabetes mellitus with complication (CMS/HCC) Take 20 mg by mouth Daily 90 tablet 3 01/17/2024 Activecalcium chloride 0.0014 meq/ml / potassium chloride 0.004 meq/ml / sodium chloride 0.103 meq/ml / sodium lactate 0.028 meq/ml injectable solution (1 source)Start: 24-65-1295intxdttk ringers infusionCALCIUM-VITAMIN D PO (20 sources)CALCIUM-VITAMIN D PO Take by mouth 0 Activecholecalciferol 0.05 mg oral tablet (20 sources)Vitamin Dcholecalciferol (Vitamin D-3) 50 MCG (1999 UT) tablet 1 (one) time each day at the same time Activedocusate sodium 100 mg oral capsule (18 sources)Start: 03-91-9857zcll 1 capsule by mouth twice dailydocusate sodium (COLACE) 100 MG capsule Take 1 capsule by mouth 2 times daily 40 capsule 0 05/09/2020 Activefamotidine 20 mg oral tablet (20 sources)Histamine-2 Receptor AntagonistStart: 06-21-2023 End: 14-41-1789vjsu 1 tablet by mouth in the morningfamotidine (Pepcid) 20 MG tablet Indications: Chronic GERD Take 1 tablet (20 mg) by mouth in the morning and 1 tablet (20 mg) before bedtime. 180 tablet 3 06/05/2024 ActiveStart: 41-60-5661zauerybrtw (PEPCID) 20 MG tabletfluticasone propionate 0.05 mg/actuat metered dose nasal spray (20 sources)CorticosteroidStart: 12-09-2023 End: 96-81-9431asft 1 spray(s) nasal route once dailyfluticasone (Flonase) 50 MCG/ACT nasal spray Indications: Environmental and seasonal allergies Administer 1 spray into each nostril Daily Shake gently. Before first use, prime pump. After use, clean tip and replace cap. 48 mL 3 12/18/2024 ActiveStart: 01-07-2023 End: 57-68-8852ccfj 1 spray(s) nasal route twice dailyfluticasone (Flonase) 50 MCG/ACT nasal spray Indications: Environmental and seasonal allergies SPRAY ONE SPRAY INTO EACH NOSTRIL TWO TIMES DAILY 48 mL 3 01/07/2023 12/09/2023 Discontinued (Reorder)FLUTICASONE PROPIONATE, NASAL, NA by Nasal route 0 Active hydroCHLOROthiazide 25 mg oral tablet (20 sources)Thiazide DiureticStart: 04-20-2023 End: 71-19-2761hfvo 1 tablet by mouth once dailyhydroCHLOROthiazide (HYDRODiuril) 25 MG tablet Indications: Primary hypertension Take 1 tablet (25 m g) by mouth Daily 90 tablet 3 01/03/2025 04/03/2025 Active3 ml insulin aspart, human 100 unt/ml pen injector (6 sources)Insulin AnalogStart: 79-10-3127kzqvofw aspart FlexPen (NovoLOG) 100 UNIT/ML pen Indications: Type 2 diabetes mellitus with complication (HCC) 5 units Once daily before evening meal 1 each 2 01/05/2025 ActiveStart: 01-05-2025 End: 23-14-9338iqrvrcv aspart FlexPen (NovoLOG) 100 UNIT/ML pen Indications: Type 2 diabetes mellitus with complication (HCC) Once daily before evening meal 1 each 2 01/05/2025 01/05/2025 Discontinued (Reorder)3 ml insulin degludec 200 unt/ml pen injector (20 sources)Insulin AnalogStart: 09-24-2023 End: 04-28-6297ciegid 34 [IU] by subcutaneous injection in the morninginsulin degludec (Tresiba FlexTouch) 200 UNIT/ML injection Indications: Type 2 diabetes mellitus with other specified complication, unspecified whether residential insulin use (HCC) Inject 34 Units under the skin in the morning and 34 Units before bedtime. 27 mL 3 05/21/2024 ActiveInsulin Degludec (TRESIBA SC) Inject 60 Units into the skin nightly 0 Activeinsulin lispro 100 unt/ml injectable solution (3 sources)Insulin AnalogStart: 01-03-2025 End: 61-45-5199Jbxsoww Lispro 100 UNIT/ML solution Indications: Type 2 diabetes mellitus with complication (HCC) Inject 5 Units as directed in the evening. Take before meals 10 mL 1 01/03/2025 01/05/2025 Discontinued (Therapy completed) lisinopril 20 mg oral tablet (20 sources)Angiotensin Converting Enzyme InhibitorStart: 05-24-2023 End: 50-49-7809vqcu 1 tablet by mouth in the morninglisinopril 20 MG tablet Indications: Primary hypertension Take 1 tablet (20 mg) by mouth in the morning and 1 tablet (20 mg) before bedtime. 180 tablet 1 12/18/2024 Activetake 2 tablets by mouth twice dailylisinopril (PRINIVIL;ZESTRIL) 10 MG tablet Take 20 mg by mouth 2 times daily 0 Activeloratadine 10 mg oral tablet (20 sources)Start: 03-02-2023 End: 49-19-9492bott 1 tablet by mouth once dailyloratadine (Claritin) 10 MG tablet Indications: Environmental and seasonal allergies Take 1 tablet (10 mg) by mouth Daily 90 tablet 3 08/30/2024 ActiveLORATADINE PO Take 10 mg by mouth 0 Activemagnesium sulfate 0.0277 meq/ml / potassium sulfate 0.0374 meq/ml / sodium sulfate 0.257 meq/ml oral solution (1 source)Start: 95-40-2275rjhegu-potassium-mag sulfate (SUPREP BOWEL PREP KIT) 17.5-3.13-1.6 GM/177ML SOLN solution Use as directed. 1 each 0 04/20/2022 Active Melatonin (1 source)MELATONIN PO Take by mouth 0 Activemelatonin 3 mg / vitamin b6 10 mg oral tablet (20 sources)Melatonin 3-10 MG tablet Pgtksd48 hr metFORMIN hydrochloride 1000 mg / SITagliptin 50 mg extended release oral tablet (1 source)Biguanide, Dipeptidyl Peptidase 4 InhibitorStart: 81-79-0352EDVSQKY XR 50-1000 MG TB24 per extended release tabletMisc Natural Products (OSTEO BI-FLEX ADV JOINT SHIELD PO) (7 sources)Misc Natural Products (OSTEO BI-FLEX ADV JOINT SHIELD PO) Take by mouth ActiveMultiple Vitamins-Minerals (Multivitamin Adults 50+) tablet (20 sources)Multiple Vitamins-Minerals (Multivitamin Adults 50+) tablet 1 (one) time each day at the same time ActiveMultiple Vitamins-Minerals (Multivitamin Adults 50+) tablet 1 (one) time each day at the same time.Activemultivitamin (THERAGRAN) per tablet (20 sources)take 1 tablet by mouth once dailymultivitamin (THERAGRAN) per tablet Take 1 tablet by mouth daily. 0 ActiveNutritional Supplements (DHEA PO) (20 sources)Nutritional Supplements (DHEA PO) Take by mouth 0 Activeomeprazole 20 mg delayed release oral capsule (20 sources)Proton Pump InhibitorStart: 12-23-2022 End: 62-57-9528idsf 1 capsule by mouth once dailyomeprazole (PriLOSEC) [address] capsule Indications: Chronic GERD Take 1 capsule (20 mg) by mouth 1 (one) time each day at the same time 90 capsule 1 12/05/2024 Activetake 1 capsule by mouth once dailyomeprazole (PRILOSEC) 20 MG capsule Take 20 mg by mouth daily. 0 Active2 ml ondansetron 2 mg/ml injection (1 source)Serotonin-3 Receptor AntagonistStart: mg, Intravenous, EVERY 6 HOURS PRN, Nausea, Vomiting, Starting Reny 05/09/20 at 1438, Post-op oxyCODONE (1 source)Opioid AgonistStart: 34-46-2657jamYPMCWN (ROXICODONE) immediate release tablet 5 mgraNITIdine 150 mg oral capsule (20 sources)Histamine-2 Receptor Antagonisttake 2 capsules by mouth once daily as neededranitidine (ZANTAC) 150 MG capsule Take 300 mg by mouth daily as needed 0 Activerosuvastatin calcium 10 mg oral tablet (7 sources)HMG-CoA Reductase InhibitorStart: 01-03-2025 End: 96-04-6326uvhx 1 tablet by mouth once dailyrosuvastatin (Crestor) 10 MG tablet Indications: Mixed hyperlipidemia Take 1 tablet (10 mg) by mouth Daily 30 tablet 1 01/03/2025 07/02/2025 ActiveSITagliptin 100 mg oral tablet (20 sources)Dipeptidyl Peptidase 4 InhibitorStart: 09-17-2023 End: 11-26-4302qjwd 1 tablet by mouth once dailySITagliptin (Januvia) 100 MG tablet Indications: Type 2 diabetes mellitus with complication (HCC) Take 1 tablet (100 mg) by mouth Daily 90 tablet 3 09/19/2024 Activetake 1 tablet by mouth once daily in the eveningsitaGLIPtin (JANUVIA) 100 MG tablet Take 100 mg by mouth every evening. 0 Active3 ml sodium chloride 9 mg/ml injection (4 sources)Start: mL, Intravenous, EVERY 12 HOURS SCHEDULED (2 times per day), First dose on Reny 05/09/20 at 2100, Post-opStart: 98-86-8984fdsd 10 mL intravenous route once10 mL, Intravenous, PRN, Line Care, Starting Reny 05/09/20 at 1438 After every IV line use Post-opStart: 92-92-9239aaclyg chloride flush 0.9 % injection 10 mLZinc (1 source)ZINC PO Take by mouth 0 Activezinc gluconate 30 mg oral tablet (20 sources)zinc 30 MG tablet 1 (one) time each day at the same time Active Completed/Discontinued Medications MedicationDrug Class(es)DatesSig (Normalized)Sig (Original)atorvastatin 40 mg oral tablet (20 sources)HMG-CoA Reductase InhibitorStart: 07-13-2023 End: 03-53-3385ahqw 1 tablet by mouth once dailyatorvastatin (Lipitor) 40 MG tablet Indications: Mixed hyperlipidemia Take 1 tablet (40 mg) by mouth Daily 90 tablet 3 01/10/2024 01/03/2025 Discontinued (Side effects)take 1 tablet by mouth once dailyatorvastatin (LIPITOR) 40 MG tablet Take 40 mg by mouth daily. 0 Activebetamethasone 3 mg/ml / betamethasone acetate 3 mg/ml injectable suspension (16 sources)CorticosteroidStart: 12-18-2024 End: mL, Intra-articular, Once PRN Procedure, Starting on 12/18/24 at 1047, For 1 doseStart: 12-18-2024 End: 76-15-1305yclhkiqovexes acetate-betamethasone sodium phosphate (Celestone) injection 1 mLStart: 05-11-2024 End: mL, Intra-articular, Once PRN Procedure, Starting on Wed05/11/24 at 1535, For 1 doseStart: 05-11-2024 End: 70-03-5272pqasvazvbornt acetate-betamethasone sodium phosphate (Celestone) injection 1 mLceFAZolin 2000 mg injection (1 source)Cephalosporin AntibacterialStart: 05-09-2020 End: 49-58-8190bvASRqfbj (ANCEF) 2000 mg in dextrose 3 % 50 mL IVPB (duplex) dapagliflozin 10 mg oral tablet (8 sources)Sodium-Glucose Cotransporter 2 InhibitorStart: 01-17-2024 End: 77-90-6762fgbk 1 tablet by mouth once dailydapagliflozin (Farxiga) 10 MG Indications: Type 2 diabetes mellitus with complication (CMS/HCC) Take 1 tablet (10 mg) by mouth Daily 28 tablet 01/17/2024 04/24/2024 Discontinuedinsulin detemir 100 unt/ml injectable solution (18 sources)Insulin Analog End: 12-68-0005scwmygz detemir (LEVEMIR) 100 UNIT/ML injection Inject 52 Units into the skin nightly 0 05/09/2020 Discontinued (LIST CLEANUP)metFORMIN hydrochloride 500 mg oral tablet (18 sources)Biguanide End: 57-80-9183qrap 2 tablets by mouth twice daily at mealtimemetformin (GLUCOPHAGE) 500 MG tablet Take 1,000 mg by mouth 2 times daily (with meals). 0 05/09/2020 Discontinued (Therapy completed)vitamin b6 100 mg oral tablet (20 sources) End: 63-64-9318Yqatczfgvo HCl (Vitamin B6) 100 MG tablet 1 (one) time each day at the same time. 05/11/2024 Discontinued (Therapy completed)take 2 tablets by mouth once dailyvitamin B-6 (PYRIDOXINE) 50 MG tablet Take 100 mg by mouth daily 0 Active Problems Active Problems Problem ClassificationProblemDateDocumented DateEpisodic/ChronicChronic kidney disease (20 sources)Chronic kidney disease stage 3A ; Translations: [Stage 3a chronic kidney disease (HCC)]Onset: 10-19-2022 Resolved: 835011-47-0048BmfzdznKfbuggca mellitus with complications (2 sources)Hyperglycemia due to type 2 diabetes mellitus; Translations: [Type 2 diabetes mellitus with hyperglycemia]38-58-8094QcqacjqBlrzmkmu mellitus without complication (20 sources)Type 2 diabetes mellitus; Translations: [Type 2 diabetes mellitus with unspecified complications]Onset: 11-09-2016 Resolved: 929930-39-1507QacqeukIjihbwau mellitus without complication (1 source)Increased glucose level; Translations: [Other abnormal glucose] 65-59-4974AjirawjdZvhbklpcj of lipid metabolism (20 sources)Hypercholesterolemia; Translations: [Pure hypercholesterolemia, unspecified]Onset: 11-09-2016 Resolved: 502553-69-2127WikocjpTiurzqywyd disorders (20 sources)Gastroesophageal reflux disease without esophagitis; Translations: [Gastro-esophageal reflux disease without esophagitis]Onset: 11-09-2016 Resolved: 054661-50-8918IlmgykkFfogrsown hypertension (20 sources)Hypertensive disorder; Translations: [Essential (primary) hypertension]Onset: 798661-99-1140LmkyfzeClweubafnis deficiencies (20 sources)Vitamin D deficiency; Translations: [Vitamin D deficiency, unspecified]Onset: 912729-81-4996NlqvrsrMbbmw aftercare (1 source)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; Translations: [STUDIO COORDINATOR CURRENT USE OF INSULIN]Onset: 73-93-1317SoaurxumTpypo and unspecified benign neoplasm (2 sources)Melanocytic nevus of trunk; Translations: [Melanocytic nevi of trunk] 27-03-2665IxwqgoggXdbim circulatory disease (1 source)Other specified symptoms and signs involving the circulatory and respiratory systems; Translations:[Other specified symptoms and signs involving the circulatory and respiratory systems]Onset: 04-64-9998UadztmifSoxio connective tissue disease (1 source)Cramp and spasm; Translations: [Cramp and spasm]Onset: 06-15-2023 EpisodicOther connective tissue disease (2 sources)Impingement syndrome of left shoulder region; Translations: [Impingement syndrome of left shoulder]32-93-4043GteembblUvowv connective tissue disease (1 source)Impingement syndrome of right shoulder region; Translations: [Impingement syndrome of right shoulder]Other connective tissue disease (17 sources)Right rotator cuff syndrome; Translations: [Rotator cuff syndrome of right shoulder]Onset: Other inflammatory condition of skin (2 sources)Lichen simplex chronicus; Translations: [Lichen simplex chronicus] 38-36-9582McsirkypAjsck nervous system disorders (1 source)Other chronic pain; Translations: [OTHER CHRONIC PAIN]Onset: 74-93-6679TnftqsbXlguq non-epithelial cancer of skin (2 sources)History of malignant basal cell neoplasm of skin; Translations: [Personal history of other malignant neoplasm of skin]62-18-0651WxttuzksUyhxx non-traumatic joint disorders (20 sources)Arthropathy of multiple joints; Translations: [Arthropathy, unspecified]Onset: 284178-34-0002DtxbxocGrunc non-traumatic joint disorders (8 sources)Polyarthropathy; Translations: [Arthropathy, unspecified]Onset: 925002-91-8566QmnoyotIleei non-traumatic joint disorders (4 sources)Pain in left hip; Translations: [PAIN IN LEFT HIP]Onset: 03-19-2022 EpisodicOther non-traumatic joint disorders (15 sources)Pain in left shoulder; Translations: [Pain in joint, shoulder region]Onset: 97-30-0935BuhbdplbRaszx non-traumatic joint disorders (2 sources)Chronic pain of left upper limb; Translations: [Pain in left shoulder]53-08-1907FvwjyuulClana non-traumatic joint disorders (1 source)Arthritis of joint of right shoulder region; Translations: [Arthritis of right shoulder region]Other skin disorders (6 sources)Actinic keratosis; Translations: [Actinic keratosis]01-10-2024 EpisodicOther skin disorders (2 sources)Seborrheic keratosis; Translations: [Other seborrheic keratosis] 83-86-8119BpcmxfweOebdi upper respiratory disease (20 sources)Allergic disposition; Translations: [Other allergic rhinitis]Onset: 522416-04-5664FhpduhuIiarjezj codes; unclassified (20 sources)Dependence on continuous positive airway pressure ventilation; Translations: [Dependence on other enabling machines and devices]Onset: 152730-50-1283FnrmunxAbwnecoo codes; unclassified (20 sources)Obstructive sleep apnea syndrome; Translations: [Obstructive sleep apnea (adult) (pediatric)]Onset: 833706-44-6194XkjzvyfTsitzmwlluv; intervertebral disc disorders; other back problems (20 sources)Sacroiliitis, not elsewhere classified; Translations: [Degeneration of lumbar intervertebral disc]Onset: 85-05-3784JvbxlzmCusahkwyydm; intervertebral disc disorders; other back problems (5 sources)Muscle spasm of back; Translations: [Sacrococcygeal disorders, not elsewhere classified]Onset: 71-40-3151HppxytmsXjofkye and strains (2 sources)Injury of superior glenoid labrum of shoulder joint; Translations: [Superior glenoid labrum lesion of left shoulder, initial encounter]04-24-2024 EpisodicUnclassified (1 source)Patient encounter status; Translations: [Pre-op chest exam] Unclassified (1 source)LOW BACK PAIN, UNSPECIFIED; Translations: [LOW BACK PAIN, UNSPECIFIED] Onset: 42-45-6328Kssnfsblrzpr (8 sources)Left shoulder pain, unspecified itabjztpiu68-80-2248 Past or Other Problems Problem ClassificationProblemDateDocumented DateEpisodic/ChronicBiliary tract disease (20 sources)Biliary colic; Translations: [Calculus of bile duct without cholangitis or cholecystitis without obstruction]Onset: 11-17-2013 Resolved: 056561-43-2405SluitpinVuxusaah (20 sources)Bilateral age-related cataract; Translations: [Unspecified age- related cataract]Onset: 10-19-2022 Resolved: 500423-25-3762YygdiciFsfezluqt and duodenitis (20 sources)Duodenitis; Translations: [Duodenitis without bleeding]Onset: 10-19-2022 Resolved: 784039-88-0176UtqzikafSkqlnizapjlzdh (20 sources)Primary osteoarthritis, left shoulder; Translations: [Arthritis of right acromioclavicular joint]Onset: 07-28-2021 Resolved: 167337-14-9830UabszbnQzjsh and unspecified benign neoplasm (2 sources)Senile angioma; Translations: [Hemangioma of skin and subcutaneous tissue]59-71-2999GhytlbuuRdjde connective tissue disease (20 sources)Right rotator cuff syndrome; Translations: [Unspecified rotator cuff tear or rupture of right shoulder, not specified as traumatic]Onset: 05-09-2020 Resolved: 336905-64-7754EafqydyjQykhl connective tissue disease (1 source)Other shoulder lesions, left shoulder; Translations: [OTHER SHOULDER LESIONS LT SHOULDER]Onset: 31-91-9724BxrlhndxWhdlx connective tissue disease (20 sources)Nontraumatic rotator cuff tear; Translations: [Unspecified rotator cuff tear or rupture of right shoulder, not specified as traumatic]Onset: 10-19-2022 Resolved: 535863-68-4330TydwxrkeIzogp connective tissue disease (20 sources)Tear of right rotator cuff; Translations: [Unspecified rotator cuff tear or rupture of right shoulder, not specified as traumatic]Onset: 10-19-2022 Resolved: 374929-42-2135LlpplsheFacyg gastrointestinal disorders (20 sources)Swallowing finding; Translations: [Dysphagia, unspecified]Onset: 10-19-2022 Resolved: 246251-91-8273MwmikszeKcbap male genital disorders (20 sources)Male erectile dysfunction, unspecified; Translations: [Impotence of organic origin]Onset: 10-19-2022 Resolved: 018132-74-1984EutdgdsHznks nervous system disorders (20 sources)Carpal tunnel syndrome of left wrist; Translations: [Carpal tunnel syndrome, left upper limb]Onset: 10-19-2022 Resolved: 586251-96-1605QcyvkikBayxf nutritional; endocrine; and metabolic disorders (20 sources)Hypomagnesemia; Translations: [Hypomagnesemia]Onset: 10-19-2022 Resolved: 752811-27-9868UimcynuErfrzikl codes; unclassified (20 sources)Sleep apnea; Translations: [Sleep apnea, unspecified]Onset: 11-09-2016 Resolved: 629867-59-1128Acqolgr Results Test NameValueInterpretationReference RangeFamercyone north [facility] medical centerNo Panel Informationon [id number] Kaufman, [facility] 12/18/2024 3:39 PM L Inj/Asp: L subacromial bursa on 12/18/2024 10:47 AM Indications: pain Details: 25 G needle, ultrasound-guided Medications: 1 mL betamethasone acetate-betamethasone sodium phosphate 6 (3-3) MG/ML Consent was given by the patient. [facility] ASAEL 12/18/2024 3:39 PM L Inj/Asp: L glenohumeral on 12/18/2024 10:46 AM Indications: pain Details: 25 G needle, ultrasound-guided Medications: 1 mL betamethasone acetate-betamethasone sodium phosphate 6 (3-3) MG/ML Consent was given by the patient. [facility] Shoulder - left 2 Viewson [id number] Result: X-rays of the left shoulder Grashey [...] type 2 acromion. Visualized lung molina are clear.[facility] Panel Informationon [id number] Kaufman, RAMAKRISHNAT 05/13/2024 10:59 PM L Inj/Asp: L subacromial bursa on 05/11/2024 3:35 PM Indications: pain Details: 25 G needle, ultrasound-guided Medications: 1 mL betamethasone acetate-betamethasone sodium phosphate 6 (3-3) MG/ML Consent was given by the patient. [facility] ARRT 05/13/2024 10:59 PM L Inj/Asp: L glenohumeral on 05/11/2024 3:34 PM Indications: pain Details: 25 G needle, ultrasound-guided Medications: 1 mL betamethasone acetate-betamethasone sodium phosphate 6 (3-3) MG/ML Consent was given by the patient. [facility] 2 Viewson 16-11-2907Cqyvsoxkg Study observation (narrative)[facility] Panel Informationon 04-14-2024 [facility] InformationOrdered By: Birgit Hernandez on [id number]. [facility]ukes [facility] Panel Informationon [id number] Midwest DivisionXR CERVICAL SPINE (4-5 VIEWS)on [id number] CERVICAL SPINE (4-5 VIEWS)EXAM: XR CERVICAL SPINE (4-5 VIEWS) HISTORY: Left shoulder pain, unspecified chronicity COMPARISON: None. IMPRESSION: FINDINGS/IMPRESSION: 1. Early anterior osteophyte formation at C5-C6, normal for age. 2. Intervertebral foramina patent. 3. Odontoid normal. 4. Minimal diffuse facet degenerative changes for age. Interpreted by: Cuba Noonan Jr., MD Signed by: Cuba Noonan Jr., MD 03/01/23 Final resultNoKindred HealthcareXR SHOULDER LEFT (MIN 2 VIEWS)on 78-56-7595QQ SHOULDER LEFT (MIN 2 VIEWS)EXAM: XR SHOULDER LEFT (MIN 2 VIEWS) HISTORY: Left shoulder pain, unspecified chronicity COMPARISON: Ayesha, 07/16/2021. IMPRESSION: FINDINGS/IMPRESSION: 1. Skin marker placed lateral to the acromion without underlying abnormality. 2. Moderate degenerative change acromioclavicular joint, similar to previous. 3. Mild narrowing glenohumeral joint. 4. Negative for calcific bursitis or fracture. Interpreted by: Cuba Noonan Jr., MD Signed by: Cuba Noonan Jr., MD 03/01/23 Final resultNormalMercy Merit [facility] [address] 09-65-3769Acegil Nhre55EMK BON [employer] Work Phone: P Taft57fxzraisNRG Spotted Phone: P-R Hrnudlhd641 [facility] Spotted Phone: Q-T Kkkklton768 [facility] Spotted Phone: QRS Mlentvsf04 [facility] Spotted Phone: QTc Calculation (Bazett)396 msVAL[facility]WISE [facility] Spotted Phone: R Hvpk19uyieyecUAA Spotted Phone: T Fwfe14nyusfzdZZBparaBebes.com Phone: Ventricular Gudg75AIIQWZ Spotted Phone: Normal sinus rhythm Minimal voltage criteria for LVH, may be normal variant ( Sokolow-Ashby ) Borderline ECGMHPN [facility] Brian Pierre MD - 04/20/2022 Normal sinus rhythm Minimal voltage criteria for LVH, may be normal variant ( Sokolow-Ashby ) Borderline ECG BON Spotted Phone: [facility]iGuiders Phone: pOINT OF CARE GLUCOSEon 05-97-5835Kajjyid [Mass/Vol] 177 mg/dLCritically dqim67-738CfzCoshocton Regional Medical CenterComment on above:Performed By: #### POCGLUC #### [facility] [address] [place] [address] Dr. Spencer Diaz-19on 63-75-5544GKIR-CoV-2, RapidNot DetectedNot Detected [employer] [place], [place]Comment on above: Rapid NAAT: The specimen is [...] management decisions. Fact sheet for Healthcare Providers: https://www.fda.gov/media/612626/download Fact sheet for Patients: https://www.fda.gov/media/966972/download Methodology: Isothermal Nucleic Acid Amplification Source.THROATMansfield Hospital, KYGlucose, Whole Bloodon 11-09-6356Qgbdpch [Mass/Vol]83 mg/dL65 - 99 mg/dLMansfield Hospital, KYGlucose [Mass/Vol]99 mg/dL65 - 99 mg/dLMansfield Hospital, KYOtheron 62-61-0029LTVO-CoV-2MLima [facility], [place] Basic Metabolic Panelon 26-89-1142Hlhpc gap [Moles/Vol]9 mmol/L9 - 17 mmol/L [facility], KYBun/Cre Plmth68GueygMansfield Hospital, KYCalcium [Mass/Vol]10.6 mg/dLHigh8.6 - 10.4 mg/dLMansfield Hospital, KYChloride [Moles/Vol]99 mmol/L98 - 107 mmol/LMMartins Ferry Hospital [place], KYCO2 [Moles/Vol]26 mmol/L20 - 31 mmol/LMProMedica Fostoria [facility]- [place], [place]Creatinine [Mass/Vol]1.26 mg/dLHigh0.7 - 1.2 mg/dLMansfield Hospital, KYGFR >60>60 mL/minPeoples Hospital [place], KYGFR Non- Rmhdideb16 mL/minLow>60[facility], KYGFR/1.73 sq M predicted among non- blacks MDRD (S/P/Bld) [Vol rate/Area][facility], KYComment on above: Average GFR for 70 or more years old: 75 mL/min/1.73sq m Chronic Kidney Disease: <60 mL/min/1.73sq m Kidney failure: <15 mL/min/1.73sq m eGFR calculated using average adult body mass. Additional eGFR calculator available at: http://www.Stypi/multiple_crcl_2012.htm GFR/1.73 sq M predicted among non-blacks MDRD (S/P/Bld) [Vol rate/Area]NOT REPORTEDMansfield Hospital, KYGlucose [Mass/Vol]155 mg/oSXvcq14 - 99 mg/dLMansfield Hospital, KYInterpretation and review of laboratory resultsAbnormalMansfield Hospital, KYPotassium [Moles/Vol]4.5 mmol/L3.7 - 5.3 mmol/LMLima Memorial Hospital, KYSodium [Moles/Vol]134 mmol/DLkn164 - 144 mmol/LMLima Memorial Hospital, KYUrea nitrogen [Mass/Vol]25 mg/dLHigh8 - 23 mg/dLMansfield Hospital, MICBC Auto Differentialon 58-62-2221Kzxbmypar (Bld) [#/Vol]0.00 10*3/[facility], [place] Basophils/100 WBC (Bld)0 %0 - 2 %[facility], KYDifferential TypeYESMLima Memorial Hospital, KYEosinophils (Bld) [#/Vol]0.20 10*3/[facility], [place] Eosinophils/100 WBC (Bld)3 %0 - 5 %[facility], KYErythrocyte distribution width (RBC) [Ratio]14.2 %12.1 - 15.2 %[facility], KYHematocrit (Bld) [Volume fraction]43.0 %41 - 53 %[facility], KYHemoglobin (Bld) [Mass/Vol] 14.6 g/dL13.5 - 17.5 g/dLMansfield Hospital, KYLymphocytes (Bld) [#/Vol]1.70 10*3/[facility], KYLymphocytes/100 WBC (Bld)23 %13 - 44 %M[facility]field HospitalBRIANH (RBC) [Entitic mass]30.9 pg26 - 34 pgMansfield Hospital, BRIANHC (RBC) [Mass/Vol]33.9 g/dL31 - 37 g/dLMansfield Hospital, BRIANMCV (RBC) [Entitic vol]91.1 fL80 - 100 fLMansfield Hospital, BRIANMonocytes (Bld) [#/Vol]0.70 10*3/[facility], BRIANMonocytes/100 WBC (Bld)9 %5 - 9 %[facility], BRIANPlatelet mean volume (Bld) [Entitic vol]NOT REPORTED6 - 12 fLMansfield Hospital, BRIANPlatelets (Bld) [#/Vol]237 10*3/[facility], BRIANPlatelets (Bld) [#/Vol]NOT REPORTED [facility], BRIANRBC (Bld) [#/Vol]4.73 10*6/uL4.5 - 5.9 m/[facility], BRIANRBC morphology finding Nom (Bld)NOT REPORTEDMansfield Hospital, BRIANSegmented neutrophils/100 WBC (Bld)65 %39 - 75 %[facility], BRIANSegs Absolute4.90[facility], BRIANWBC (Bld) [#/Vol]NOT REPORTEDper 100 WBCMansfield Hospital, BRIANWBC (Bld) [#/Vol]7.6 10*3/[facility], BRIANWBC MorphologyNOT REPORTEDMansfield HospitalBRIANOtheron 35-68-6343Pdnuofir granulocytes (Bld) [#/Vol]NOT REPORTED [facility], BRIANXR CHEST (2 VW)on 04-07-4889Ysgwfj mild symmetric emphysematous overinflation. No acute changes.[facility], BRIANEXAM: XR CHEST (2 VW) HISTORY: Reason for exam:->Pre-op for rt shoulder scope. COMPARISON: None.TECHNIQUE: 2 views chest. FINDINGS: Likely mild emphysematous overinflation. Heart size normal. Lungs clear.M[facility]field HospitalRamos, myrna Incoming Radiant Results From [employer] - 05/02/2020 1:56 PM EST EXAM: XR CHEST (2VW) HISTORY: Reason for exam:->Pre-op for rt shoulder scope. COMPARISON: None. TECHNIQUE: 2 views chest. FINDINGS: Likely mild emphysematous overinflation. Heart size normal. Lungs clear. IMPRESSION: Likely mild symmetric emphysematous overinflation. No acute changes. [facility] HospitalCALDERON SHOULDER RIGHT WO CONTRASTon . A 1.3 cm x 1 cm high-grade partial-thickness or possibly full-thickness rotator cuff tear of thedistalmost infraspinatus tendon, with surrounding severe infraspinatus tendinopathy and supraspinatus tendinopathy. No tendon retraction or muscular atrophy. 2. Probable small 0.5 cm x 0.5 cm low-grade partial-thickness intrasubstance tear or area of fraying in the superior distal fibers of the subs capularis tendon, with surrounding moderate tendinopathy. 3. Medial [...] narrow the supraspinatus outlet. Mild subacromial/subdeltoid bursitis. 7.Large 7.2 cm benign lipoma in the teres minor muscle. I recommend continued clinical follow up to assess for stability.[facility]field HospitalBRIANCLINICAL HISTORY: Impingement syndrome of right shoulder (M75.41). Right shoulder pain. MRI RIGHT SHOULDER WITHOUT CONTRAST: TECHNIQUE: Sagittal PD, STIR, T2, coronal T1, PD, T2 fat- saturated, and axial images were obtained through the right shoulder. COMPARISON: Radiograph of 02/23/2020. FINDINGS:A large 7.2 cm transverse by 4 cm [...] the glenohumeral joint, with small inferior marginal osteophytes.[facility], Ramos, myrna Incoming Radiant Results From [employer] - 04/24/2020 12:20 PM EST CLINICAL HISTORY: [...] clinical follow up to assess for stability. [facility], KYXR SHOULDER RIGHT (MIN 2 VIEWS)on 22-68-6213Sjacpapw degenerative changes at the acromioclavicular joint with undersurface spurring measuring 7mm, which could contribute to outlet impingement.[facility] HospitalAnchor [facility] [facility], BRIAN EXAM: XR SHOULDER RIGHT (MIN 2 VIEWS). HISTORY: M19.011. 74-year-old male, right shoulder pain, arthritis right shoulder region. COMPARISON: None. TECHNIQUE: 3 views right shoulder FINDINGS: Moderateosteoarthritic change acromioclavicular joint with undersurface spurring. Minimal degenerative narrowing at the glenohumeral joint.Mansfield HospitalRamos Mhpn Incoming Radiant Results From [employer] - 02/23/2020 4:11 PM EST EXAM: XR SHOULDERRIGHT (MIN 2 VIEWS). HISTORY: M19.011. 74-year-old male, right shoulder pain, arthritis right shoulder region. COMPARISON: None. TECHNIQUE: 3 views right shoulder FINDINGS: Moderate osteoarthritic change acromioclavicular joint with undersurface spurring. Minimal degenerative narrowing at the glenohumeral joint. IMPRESSION: Moderate degenerative changes at the acromioclavicular joint with undersurface spurring measuring 7 mm, which could contribute to outlet impingement. [facility] HospitalAnchor [employer] [employer] [facility], BRIAN Vital Signs Date TimeVital SignValuePerforming HttjtzghbMshpybsc25-06-7049 11:07-0400Body llgbty427.3 cmLaya Plata REFUELING RAMP ATTENDANT Work Phone: [phone] DivisionQjdrxrbycy21-96-9819 11:07-0400Body mass index (BMI) [Ratio]23.95 kg/a8AkkpoLaya Plata REFUELING RAMP ATTENDANT Work Phone: [phone] DivisionTbxczeemlx84-62-9602 11:07-0400Body temperature 96.69 [degF]Laya Plata REFUELING RAMP ATTENDANT Work Phone: [phone] DivisionWzvsmlukqk84-96-2105 11:07-0400Body .57 kgLaya Plata REFUELING RAMP ATTENDANT Work Phone: [phone] DivisionJmrguitwmy27-09-4378 11:07-0400Diastolic blood xlneiarm12 mm[Hg]Laya Plata REFUELING RAMP ATTENDANT Work Phone: [phone] DivisionOofdophycd59-69-3825 11:07-0400Heart rate59 /min Laya Rine REFUELING RAMP ATTENDANT Work Phone: [facility] DivisionVdoczouqqo86-74-2150 11:07-0400Respiratory rate18 /minGerri Rine REFUELING RAMP ATTENDANT Work Phone: [facility] DivisionKyhwxtbvnt72-25-9480 11:07-9273UkI1% (BldA) [Mass fraction]97 %Laya Rine REFUELING RAMP ATTENDANT Work Phone: [phone] DivisionIxwbyluvnl41-68-7074 11:07-0400Systolic blood damynbly254 mm[Hg]Laya Rine REFUELING RAMP ATTENDANT Work Phone: [facility] DivisionZudckuhdsa71-38-2490 10:43-0400Body dhojrn171.3 cmBigg Bowens DO Work Phone: [facility] DivisionYuywmncqki93-62-5570 10:43-0400Body mass index (BMI) [Ratio]24.22 kg/h1SgdqtBigg Bowens DO Work Phone: [facility] DivisionTxawekkujm70-58-2366 10:43-0400Body .39 kgBigg Bowens DO Work Phone: noCox SouthLbtiggbptk36-43-9711 11:02-0400Body .3 cmRamseyri Jayline REFUELING RAMP ATTENDANT Work Phone: [facility] DivisionKlbvvvvocc12-03-1539 11:02-0400Body mass index (BMI) [Ratio]24.25 kg/o5Carzm Rine REFUELING RAMP ATTENDANT Work Phone: [phone] DivisionZycfrmpvyw57-23-6291 11:02-0400Body temperature 97.59 [degF]Laya Rine REFUELING RAMP ATTENDANT Work Phone: [facility] DivisionDrvfwgcjii15-39-9177 11:02-0400Body rsalht68.48 kgGerri Rine REFUELING RAMP ATTENDANT Work Phone: [phone] DivisionVpjxsmpqkq82-96-5879 11:02-0400Diastolic blood heaomnff56 mm[Hg]Laya Rine REFUELING RAMP ATTENDANT Work Phone: [facility] DivisionQgmywajfla71-94-3837 11:02-0400Heart rate76 /min Laya Rine REFUELING RAMP ATTENDANT Work Phone: [phone] [place], [place] [address]Vcxgulhwke91-34-5820 11:02-0400Respiratory rate18 /minGerri Rine REFUELING RAMP ATTENDANT Work Phone: [facility] DivisionWnwkfooolo10-12-1505 11:02-9910ScA8% (BldA) [Mass fraction]97 %Laya Rine REFUELING RAMP ATTENDANT Work Phone: [facility] DivisionJlrynykgfu84-31-5449 11:02-0400Systolic blood mm[Hg]Laya Rine REFUELING RAMP ATTENDANT Work Phone: [facility] DivisionUvjckmeznh82-87-4704 14:53-0500Body ukghaw737.3 cmBigg Bowens DO Work Phone: noCox SouthVyasmyzwkp82-12-9693 14:53-0500Body mass index (BMI) [Ratio]24.51 kg/n0ZmkmnBigg Bowens DO Work Phone: noCox SouthQkpmtqzxbj47-56-6726 14:53-0500Body temperature 97.5 [degF]Bigg Bowens DO Work Phone: [facility] DivisionDnzjybdyml75-49-0989 14:53-0500Body .3 kg Bigg Bowens DO Work Phone: noCox SouthZjinbbkjky47-36-2296 11:11-0500Body wcdihi383.3 cmLaya Plata REFUELING RAMP ATTENDANT Work Phone: [facility] DivisionZudhfklrlj71-44-3356 11:11-0500Body mass index (BMI) [Ratio]24.6 kg/p2Gmpjo Rine REFUELING RAMP ATTENDANT Work Phone: [phone] DivisionVnrowulzzk18-57-1732 11:11-0500Body temperature 98.8 [degF]Laya Rine REFUELING RAMP ATTENDANT Work Phone: [facility] DivisionPdtldlwnbp11-64-0089 11:11-0500Body ttxovp41.57 kgGerri Rine REFUELING RAMP ATTENDANT Work Phone: [facility] DivisionLgpfpdtnlk97-92-1034 11:11-0500Diastolic blood emvpgpfp04 mm[Hg]Laya Rine REFUELING RAMP ATTENDANT Work Phone: [facility] DivisionQqwojizqrn81-69-0023 11:11-0500Heart rate65 /min Laya Rine REFUELING RAMP ATTENDANT Work Phone: [facility] DivisionDvvsleklec27-77-1886 11:11-0500Respiratory rate18 /minGerri Rine REFUELING RAMP ATTENDANT Work Phone: [facility] DivisionCtmkxwgyjl86-15-7795 11:11-8184NcX0% (BldA) [Mass fraction]94 %Laya Rine REFUELING RAMP ATTENDANT Work Phone: [facility] DivisionQhfnbnmbal71-75-7959 11:11-0500Systolic blood gjiuehib403 mm[Hg]Laya Rine REFUELING RAMP ATTENDANT Work Phone: [facility] DivisionVataptpgqa00-83-9915 10:19-0500Body .3 cmDavid Pocos DO Work Phone: [facility] DivisionZpqrhqlrkm95-38-5014 10:19-0500Body mass index (BMI) [Ratio]24.96 kg/a5Ocmhu Pocos DO Work Phone: [facility] DivisionIjirnqfhja45-52-1025 10:19-0500Body iztdwd04.66 kgDavid Pocos DO Work Phone: noCox SouthSewvlaxlij59-12-9250 10:30-0400Body gmyogm683.3 cmGerri Rine REFUELING RAMP ATTENDANT Work Phone: [facility] DivisionOlnreoutpe80-61-7750 10:30-0400Body mass index (BMI) [Ratio]25.08 kg/e8Hebxe Rine REFUELING RAMP ATTENDANT Work Phone: [facility] DivisionPaqcwpcflb65-15-0001 10:30-0400Body temperature 97.81 [degF]Laya Rine REFUELING RAMP ATTENDANT Work Phone: [facility] DivisionNcilelknob27-49-2606 10:30-0400Body .02 kgGerri Rine REFUELING RAMP ATTENDANT Work Phone: [facility] DivisionWpxorisurs83-27-1641 10:30-0400Diastolic blood vpqdcykk53 mm[Hg]Laya Rine REFUELING RAMP ATTENDANT Work Phone: [facility] DivisionIyaxdermcj15-21-8707 10:30-0400Heart rate70 /min Laya Rine REFUELING RAMP ATTENDANT Work Phone: [address] [place], [place] [address]Ychqwciwkn89-64-1382 10:30-0400Respiratory rate18 /minGeryvan Plata REFUELING RAMP ATTENDANT Work Phone: noCox SouthCdcksgqgis48-27-4527 10:30-4949EbZ0% (BldA) [Mass fraction]96 %Laya Plata REFUELING RAMP ATTENDANT Work Phone: noCox SouthAcnpfvbubu93-82-8591 10:30-0400Systolic blood fixbjiqq854 mm[Hg]Laya Plata REFUELING RAMP ATTENDANT Work Phone: [facility] DivisionMietlolfsi23-34-2287 15:35-0500BP Hkwhakacg11 mm[Hg][place], [place]02[place] 15:35-0500BP Bdlhdpxj368 mm[Hg] [place], [place]02[place] 15:35-0500Pulse (Heart Rate)60 /min [place], [place]02[place] 15:35-0500Pulse Ywgalbrx31 %[place], [place]02[place] 15:35-0500Respiratory Rate18 /minDaviStockton, [place]02[place] 15:05-0500Body Tksghfynmui44.49 [degF][facility], SX62-78-8807 10:31-0500BMI (Body Mass Index)26.09 kg/b9YofqwH[place]02[place] 10:31-0500Body ozkuov01.7 kgDavid [place], [place]02[place] 10:31-7214Vvgokj940.5 cmDad [place] Encounters Encounter DateEncounter TypeCare ProviderFacilityStart: 01-28-2025 End: 31-10-8241Erkzzslds encounterGerri Jermain Plata REFUELING RAMP ATTENDANT Work Phone: [facility] MedicineStart: 01-26-2025 End: 00-88-2784DbycwaYsruxqm Vargas MANOMS [facility] MedicineComment on above:Type 2 diabetes mellitus without complication, without long-term current use of insulin (HCC)Start: 01-22-2025 End: 05-18-6549lomajvmgjdTxhjxhs Vytautas Giedraitis MDFacility:PM Ayesha Start: 01-15-2025 End: 04-71-2012Jdhivpmyd encounterLaay Plata REFUELING RAMP ATTENDANT Work Phone: noms [facility] MedicineComment on above:refill atenololStart: 01-05-2025 End: 88-27-6260XmamsqFltgu L Jayline REFUELING RAMP ATTENDANT Work Phone: noms [facility] MedicineComment on above:Type 2 diabetes mellitus with complication (HCC) (Primary Dx)Type 2 diabetes mellitus with complication (HCC)Start: 01-03-2025 End: 85-16-1389Ogujhd flowsheetGerri L Jayline REFUELING RAMP ATTENDANT Work Phone: noms [facility] MedicineStart: 01-03-2025 End: 79-91-0771Tzfwhx flowsheetGerri L Rine REFUELING RAMP ATTENDANT Work Phone: noms [facility] MedicineStart: 01-03-2025 End: 58-75-1621Ndvvxs outpatient visit 25 minutesGerri Jermain Mosquedae REFUELING RAMP ATTENDANT Work Phone: noms [facility] MedicineComment on above:Chronic left shoulder pain (Primary Dx); Mixed hyperlipidemia; Type 2 diabetes mellitus with complication (HCC); Stage 3a chronic kidney disease ([facility]-HCC); Primary hypertensionStart: 01-03-2025 End: 84-79-3732tmlbkklmujCRYGA L RINENot AvailableStart: 12-18-2024 End: 99-43-8048Ygcdcl Mariella Bowens DO Work Phone: [facility]opaedicsStart: 12-18-2024 End: 63-22-2579Mkvavc Mariella Bowens DO Work Phone: [facility]opaedicsStart: 12-18-2024 End: 45-55-5197Luvqylo encounter procedureBigg Bowens DO Work Phone: NOMS [facility] OrthopaedicsComment on above:Left shoulder pain, unspecified chronicityEnvironmental and seasonal allergies; Primary hypertensionStart: 12-18-2024 End: 54-29-7829ppbwaktsxtHOPAI A BROWNNot AvailableStart: 12-05-2024 End: 29-91-1703Otumdkfrz encounterLaya Plata REFUELING RAMP ATTENDANT Work Phone: NOUV [facility] Medical CenterComment on above:refill OmeprazoleStart: 09-19-2024 End: 31-92-1940QkrzsdBxivpj Feucht MANOMS TSR FMComment on above:Type 2 diabetes mellitus with complication (HCC)Start: 09-05-2024 End: 06-39-6626Xmdtgl flowsheetGerri L Jayline REFUELING RAMP ATTENDANT Work Phone: NOMS TSR FMStart: 09-05-2024 End: 80-31-5535Euncze flowsheetGerri L Jayline REFUELING RAMP ATTENDANT Work Phone: NOMS [facility] FMStart: 09-05-2024 End: 01-65-4452Lwolxp outpatient visit 25 minutesGerri L Jayline REFUELING RAMP ATTENDANT Work Phone: NOMS TSR FMComment on above:Type 2 diabetes mellitus with complication (CMS/HCC) (Primary Dx); Primary hypertension (CMS/HCC); Stage 3a chronic kidney disease (HCC) (CMS/HCC); CPAP (continuous positive airway pressure) dependence; White coat syndrome with diagnosis of hypertension (CMS/HCC)Start: 09-05-2024 End: 13-62-4933ajzzfsvyzsFPHZE L RINENot AvailableStart: 08-30-2024 End: 91-55-5258TkfhgbLezohe Feucht MANOMS TSR FMComment on above:Environmental and seasonal allergiesStart: 08-14-2024 End: 54-14-6885Goxnxr Mariella Bowens DO Work Phone: NOMS ORTHOStart: 08-14-2024 End: 40-62-7233Lkpqzl Mariella Bowens DO Work Phone: NOMS ORTHOStart: 08-14-2024 End: 16-90-9493Ebickxz encounter procedureBigg Bowens DO Work Phone: NOMS NB ORTHOComment on above:Left shoulder pain, unspecified chronicity (Primary Dx)Start: 08-14-2024 End: 84-30-4267crqcncllvmNEGDC A BROWNNot AvailableStart: 07-10-2024 End: 55-05-8333VycsfkMfpvxm Lacis RNNOMS TSR FMComment on above:Primary hypertension ([facility])Start: 06-05-2024 End: 48-16-2400Jktdhzlbq encounterGerri L Rine REFUELING RAMP ATTENDANT Work Phone: NOMS TSR FMComment on above:medication refillStart: 05-26-2024 End: 43-98-4341Pvnayzigq encounterGerri L Rine REFUELING RAMP ATTENDANT Work Phone: NOMS TSR FMStart: 05-21-2024 End: 16-30-9541FbzwqvDupzc L Rine REFUELING RAMP ATTENDANT Work Phone: NOMS TSR FMComment on above:Type 2 diabetes mellitus with other specified complication, unspecified whether yeast pusher insulin use ([facility])Start: 05-11-2024 End: 59-14-7572Axwfwwq encounter procedureBigg Bowens DO Work Phone: NOMS NB ORTHOComment on above:Left shoulder pain, unspecified chronicity (Primary Dx)Start: 05-11-2024 End: 20-34-6372dkfkhymnlpSAAEG A BROWNNot AvailableStart: 05-11-2024 End: 58-12-3088Zrclif Mariella Bowens DO Work Phone: [phone] ORTHOStart: 05-11-2024 End: 39-64-4654Ovjyak flowsCata Bowens DO Work Phone: [phone] ORTHOStart: 05-08-2024 End: 15-23-8821Zavbxw flowsheetGerri L Rine REFUELING RAMP ATTENDANT Work Phone: NOMS TSR FMStart: 05-08-2024 End: 67-35-8908Irtrro flowsheetGerri L Rine REFUELING RAMP ATTENDANT Work Phone: NOMS TSR FMStart: 05-08-2024 End: 10-81-7102Dirunlc encounter procedureLaya Plata NP Work Phone: noms TSR FMComment on above:Medicare annual wellness visit, initial (Primary Dx); Stage 3a chronic kidney disease (HCC) ([facility]/HCC); Primary hypertension (CMS/HCC); Mixed hyperlipidemia (CMS/HCC); Type 2 diabetes mellitus with complication ([facility]/HCC); Obstructive sleep apnea syndrome; Chronic GERD; Lumbar spondylosis; Degeneration of intervertebral disc of lumbar region, unspecified whether pain present; Arthritis, multiple joint involvement; Environmental and seasonal allergies; Vitamin D deficiency; CPAP (continuous positive airway pressure) dependenceStart: 05-08-2024 End: 51-64-3464nmwjudrrtuOOOTY L RINENot AvailableStart: 05-01-2024 End: 80-83-7017Dnwqhe OnlyLaya Plata NP Work Phone: noms TSR FMComment on above:Elevated glucose (Primary Dx); Essential hypertension ([facility]); Elevated cholesterol ([facility]); Type 2 diabetes mellitus with complication ([facility]/HCC); Mixed hyperlipidemia ([facility]/HCC)Start: 04-26-2024 End: 83-59-2149BqdhyaUskpy L Rine NP Work Phone: NOFP TSR FMComment on above:Type 2 diabetes mellitus with other specified complication, unspecified whether yeast pusher insulin use ([facility])Start: 04-24-2024 End: 14-42-8552Sitjily encounter procedureDavid A Pocos DO Work Phone: NOMS NB ORTHOComment on above:Left shoulder pain, unspecified chronicity (Primary Dx); Arthritis of left shoulder region; Superior glenoid labrum lesion of left shoulder, initial encounter; Impingement syndrome of left shoulderStart: 04-24-2024 End: 75-59-8954qsqgxkynntKMTRU A POCOSNot AvailableStart: 04-24-2024 End: 69-82-6773qxkjxdgtmhEURLM A POCOSNot AvailableStart: 04-14-2024 End: 81-43-9318Lbqfhf Meenakshi TURPIN Work Phone: NOHT TSR DERMStart: 04-14-2024 End: 99-94-2238Skqxwx flowsheetAlison Jermain Salgado PA Work Phone: NOMS TSR DERMStart: 04-14-2024 End: 42-23-3568Itijxnupn encounterGerri L Rine REFUELING RAMP ATTENDANT Work Phone: NOLP TSR FMComment on above:FYI on left shoulderStart: 04-14-2024 End: 90-05-7588Vfttoh outpatient visit 15 minutesAlison Jermain Salgado PA Work Phone: NOSP TSR DERMComment on above:Melanocytic nevus of trunk (Primary Dx); History of basal cell carcinoma; Seborrheic keratosis; Actinic keratosis; Lichen simplex chronicusStart: 04-14-2024 End: 82-93-4925dpgdlvgbvzKIYKBT Jermain SALGADONot AvailableStart: 01-17-2024 End: 84-68-3757Qcvqjn flowsheetGerri L Rine REFUELING RAMP ATTENDANT Work Phone: NOMS TSR FMStart: 01-17-2024 End: 37-70-7679Otnhgs flowsheetGerri L Rine REFUELING RAMP ATTENDANT Work Phone: [facility] FMStart: 01-17-2024 End: 46-03-1556Ixlouk outpatient visit 25 minutesGerri L Rine REFUELING RAMP ATTENDANT Work Phone: [facility] FMComment on above:Type 2 diabetes mellitus with complication (CMS/HCC) (Primary Dx); Stage 3a chronic kidney disease (HCC) (CMS/HCC); Type 2 diabetes mellitus with hyperglycemia (CMS/HCC); Mixed hyperlipidemia (CMS/HCC)Start: 01-17-2024 End: 28-54-1745yahnsvtgrxLCEET L RINENot AvailableStart: 01-16-2024 End: 67-37-4480PsuvaeRohuk L Rine REFUELING RAMP ATTENDANT Work Phone: [facility] FMComment on above:Primary hypertension (CMS/HCC)Start: 01-10-2024 End: 86-95-2424Zxfitb flowsheetAlison L Nellie PA Work Phone: [facility] TSR DERMStart: 01-10-2024 End: 53-93-5549Yeesdz flowsheetAlison L Nellie PA Work Phone: [facility] TSR DERMStart: 01-10-2024 End: 80-77-0184Zwvyvdrzr encounterGerri L Rine REFUELING RAMP ATTENDANT Work Phone: [facility] TSR FMComment on above:refill atorvastatinStart: 01-10-2024 End: 64-15-7839Tbxtfmj encounter procedureAlison L Nellie PA Work Phone: [facility] TSR DERMComment on above:Actinic keratosis (Primary Dx)Start: 01-10-2024 End: 55-97-2557koqgrhzgsuHNMEWL L WINANSNot AvailableStart: 12-13-2023 End: 80-77-3081Yjqfnxemd encounterGerri L Rine REFUELING RAMP ATTENDANT Work Phone: [facility] TSR FMComment on above:refillsStart: 12-09-2023 End: 29-60-2011Hxapimfdj encounterGerri L Rine REFUELING RAMP ATTENDANT Work Phone: [facility] TSR FMComment on above:Med RefillStart: 11-30-2023 End: 39-55-2682Snygrc flowsheetAlison L Nellie PA Work Phone: [facility] TSR DERMStart: 11-30-2023 End: 62-04-5250Gycsip flowsheetAlison L Nellie PA Work Phone: [facility] TSR DERMStart: 11-30-2023 End: 91-02-4925Qicluw outpatient visit 10 minutesAlison L Nellie PA Work Phone: [facility] TSR DERMComment on above:Segundo angioma (Primary Dx); Actinic keratosisStart: 11-24-2023 End: 07-78-5858ZittijJajog L Rine REFUELING RAMP ATTENDANT Work Phone: [facility] TSR FMComment on above:Primary hypertension (CMS/HCC)Start: 06-15-2023 End: 38-74-6643hjiwmethdxQXOQCJC Ryanne COUNT INCLUDES THE [facility] HOSPITALMELIAholzer hospitalerma [place] HospitalStart: 03-01-2023 End: 72-95-5021mjqdflrsjsSYRIXJR G [facility]RMhol[facility] hospitalerma [place] HospitalStart: 04-23-2022 End: 70-79-0179mfrtipsdznVK DOCTOR MISCFacility:N8Hdqix: 04-20-2022 End: 29-52-2881Edaevuy encounter statusDaniel Pop DO Work Phone: mwhZ RESPIRATORY THERAPYStart: 04-20-2022 End: 08-58-7658Mxclroahgj hospital visit by Mallory Pop DO Work Phone: mwhz RESPIRATORY THERAPYComment on above:Pre-op testingStart: 04-07-2022 End: 27-83-5681eqsbufcznlWN DOCTOR MISCFacility:O2Kioak: 03-19-2022 End: 42-08-0902ogzpzzdrlzKP ABNER S KUMARFacility:O7Dvyrq: 07-22-2021 End: 94-92-9517nooggoiuuhWG ABNER S KUMARFacility:D4Eteeu: 07-16-2021 End: 68-58-5861jilsvqzafwWH OTF ESCAMILLAERFacility:T5Ayxij: 08-15-2020 End: 49-00-6705Tebaioqccd hospital visit by Mallory Pop DO Work Phone: [facility] RadiologyStart: 07-15-2020 End: 48-08-5222Xggbwrpbik hospital visit by Yogi Russell Physical TherapyComment on above:ArrivedStart: 07-08-2020 End: 29-59-0906Ongpjkwwsw hospital visit by Cole Marcos Physical TherapyComment on above:ArrivedStart: 07-03-2020 End: 03-48-4439Xmvzrmlruj hospital visit by Enoch Rosa Physical TherapyComment on above:ArrivedStart: 07-01-2020 End: 60-98-2316Tgiwgruphl hospital visit by Yogi Russell Physical TherapyComment on above:ArrivedStart: 06-26-2020 End: 05-57-9507Imaghuvwcb hospital visit by Cole Marcos Physical TherapyComment on above:ArrivedStart: 06-24-2020 End: 24-30-4202Igicwyyekl hospital visit by Yogi Russell Physical TherapyComment on above:ArrivedStart: 06-21-2020 End: 34-75-7185Lrvmzmjsdg hospital visit by Yogi Russell Physical TherapyComment on above:ArrivedStart: 06-19-2020 End: 57-28-1555Evnrkhmqbe hospital visit by Enoch Rosa Physical TherapyComment on above:ArrivedStart: 06-14-2020 End: 84-17-9066Vuuzjmtbbm hospital visit by Cole Marcos Physical TherapyComment on above:ArrivedStart: 06-12-2020 End: 18-62-5021Whvmcqwhzt hospital visit by Cole Marcos Physical TherapyComment on above:ArrivedStart: 06-10-2020 End: 56-29-5557Bbihbsnicv hospital visit by Cole Marcos Physical TherapyComment on above:ArrivedStart: 06-07-2020 End: 36-40-0270Etbbacpfga hospital visit by Enoch Rosa Physical TherapyComment on above:ArrivedStart: 06-05-2020 End: 97-96-8915Jpkaruvdqj hospital visit by Enoch Rosa Physical TherapyComment on above:ArrivedStart: 05-29-2020 End: 74-36-0215Xeeaenvupu hospital visit by Enoch Rosa Physical TherapyComment on above:ArrivedStart: 05-09-2020 End: 34-96-3395Ggthlemeru hospital visit by Vicky Moreland Work Phone: mWHV ORComment on above:Rotator cuff syndrome of right shoulder (Primary Dx)Start: 05-09-2020 End: 79-62-0250Djeiwhrixr hospital visit by physicianAnderson Covid19 Pat Screening ScheduleMWHZ PRE ADMITComment on above:ArrivedStart: 05-02-2020 End: 20-08-8143Wmabyougts hospital visit by physicianAnderson ReinosoWHZ LaboratoryComment on above:Pre-op chest examStart: 04-24-2020 End: 70-04-0212Mpmctherkz hospital visit by physicianAnderson [facility] MRIComment on above:Impingement syndrome of right shoulder Start: 04-17-2020 End: 79-85-1881Obmokmwofd hospital visit by Keri Garibay Physical TherapyComment on above:ArrivedStart: 04-15-2020 End: 26-96-2288Xixicuiinl hospital visit by Aida Billingsley Physical TherapyComment on above:ArrivedStart: 04-11-2020 End: 53-02-0822Ejeoataogh hospital visit by Aida Billingsley Physical TherapyComment on above:ArrivedStart: 04-09-2020 End: 22-25-8950Iwohjuojxl hospital visit by Keri Garibay Physical TherapyComment on above:ArrivedStart: 04-03-2020 End: 31-57-8415Gmaxwamcql hospital visit by Keri Garibay Physical TherapyComment on above:ArrivedStart: 04-01-2020 End: 83-71-3262Tczemhfmfh hospital visit by Keri Garibay Physical TherapyComment on above:ArrivedStart: 03-27-2020 End: 84-58-7132Lsaziwpyoh hospital visit by Lory Peguero Phone: MALACHI Physical TherapyComment on above:ArrivedStart: 03-26-2020 End: 09-51-8327Dvhtsquwob hospital visit by Aida Billingsley Physical TherapyComment on above:ArrivedStart: 03-21-2020 End: 61-90-2388Boimosesta hospital visit by Keri Garibay Physical TherapyComment on above:ArrivedStart: 03-19-2020 End: 40-51-5141Dsezlehzlt hospital visit by Aida Billingsley Physical TherapyComment on above:ArrivedStart: 02-23-2020 End: 47-41-4563Xlgpfcezzn hospital visit by Tania Additional X[facility] At [facility] RadiologyComment on above:Arthritis of right shoulder regionStart: 12-20-2018 End: 74-97-6339Fqhmshwwyc hospital visit by Mallory [facility] Radiology Procedures DateProcedureProcedure DetailPerforming ClinicianStart: 12-18-2024 End: 65-77-3233Jvwtrjtwancinz aspir&/inj major jt/bursa w/usJason A Brown DO Work Phone: Start: 05-11-2024 End: 89-33-9085Zckkhkhgtknmcr aspir&/inj major jt/bursa w/usJason A Brown DO Work Phone: Start: 12-56-9529Xruho shoulder complete minimum 2 viewsJason A Brown DO Work Phone: Start: 00-39-2272Iqjtj shoulder complete minimum 2 viewsDavid A Pocos DO Work Phone: Start: 00-37-1469LGMIEFVXWYN SKIN LESIONAlison L Nellie PA Work Phone: Start: 20-84-8933CVXKZVDKGQB SKIN LESIONAlison L Nellie PA Work Phone: Start: 88-48-4926OTLQNGVMQLD SKIN LESIONAlison L Nellie PA Work Phone: Start: 03-24-4668Ylv routine ecg w/least 12 lds w/i&r Brian Mckeon MD Work Phone: start: 46-79-3760Xoza bld gluc mntr dev cleared fda spec home useDavid John Pocos Work Phone: Start: 12-40-1480Syok bld gluc mntr dev cleared fda spec home useDavid John Pocos Work Phone: Start: 46-39-6632CYLJA-19Luis Cheryl Doll Work Phone: Start: 82-19-4293Aheobsfgpm exam chest 2 viewsDavid John Moreland Work Phone: Start: 89-16-2262Zaxfk metabolic panel calcium total Pretty John Moreland Work Phone: Start: 75-85-9453Yxwjv count complete auto&auto difrntl wbcDavid John Moreland Work Phone: Start: 12-38-6673Hcp any jt upper extremity w/o contrast matrlDavid John Moreland Work Phone: Start: 68-93-2644Hensw shoulder complete minimum 2 viewsMichael G Roseann Work Phone: Plan of Treatment DateCare ActivityDetailAuthorStart: 65-75-7532Aglvsrgi screeningDiabetes: Retinopathy ScreeningNOCO HealthcareStart: 21-53-9798Xctuapyqc vaccination Influenza Vaccine (#1)[facility] HealthcareComment on above:Postponed from 12/04/2024 (Patient Refused)Start: 02-03-2026Medicare Annual Wellness (AWV)Medicare Annual Wellness (AWV)[facility] HealthcareStart: 04-20-2025 End: 37-38-1832Ehgeqbq encounter procedureNOMS TSR DERMStart: 03-27-2025 Hemoglobin A1c measurementDiabetes: Hemoglobin E9BUDGD HealthcareStart: 02-26-2025 End: 29-67-5518Fmcgqxs encounter nicmbxpop38/24/2025 10:30 AM EST Office Visit [facility] [address] [place] [address] Laya Plata NP [address] [place] [address] [facility] MedicineStart: 67-19-2947Xkvah screening for proteinDiabetes: Urine Protein ScreeningNOCO HealthcareStart: 01-03-2025 End: 95-78-8820Wuygnwz aminotransferase [Enzymatic activity/volume] in Serum or PlasmaALT Lab Routine Mixed hyperlipidemia Expected: 01/03/2025 (Approximate), Expires: 01/03/2026[facility] Work Phone: Comment on above:Expected: 01/03/2025 (Approximate), Expires: 01/03/2026Start: 01-03-2025 End: 59-50-5762Gevkdvzkj aminotransferase [Enzymatic activity/volume] in Serum or PlasmaAST Lab Routine Mixed hyperlipidemia Expected: 01/03/2025 (Approximate), Expires: 01/03/2026NOCO HealthcareComment on above:Expected: 01/03/2025 (Approximate), Expires: 01/03/2026Start: 01-03-2025 End: 13-44-3147Byxfvpeexy A1c/Hemoglobin.total in BloodHemoglobin A1c Lab Routine Type 2 diabetes mellitus with complication (HCC) Expected: 01/03/2025 (Approximate), Expires: 01/03/2026NOCO HealthcareComment on above:Expected: 01/03/2025 (Approximate), Expires: 01/03/2026Start: 01-03-2025 End: 21-27-3749Ujmpx 1996 panel - Serum or PlasmaLipid panel Lab Routine Mixed hyperlipidemia Expected: 01/03/2025 (Approximate), Expires: 01/03/2026NOCO HealthcareComment on above:Expected: 01/03/2025 (Approximate), Expires: 01/03/2026Start: 01-03-2025 End: 98-80-5359Ebzsqct encounter procedureNOMS TSR FMComment on above:Arrived Start: 12-18-2024 End: 13-44-4996Lwhgayg encounter procedureNOMS NB ORTHOComment on above:Arrived Start: 12-06-2024 End: 44-56-8693Ugedtwpyav A1c/Hemoglobin.total in BloodHemoglobin A1c Lab Today Type 2 diabetes mellitus with complication (CMS/HCC) Expected: 12/06/2024 ( Approximate), Expires: 09/05/2025[facility] Work Phone: Comment on above:Expected: 12/06/2024 (Approximate), Expires: 09/05/2025Start: 83-13-1620Kpionoapy vaccinationST. MARK'S HOSPITAL HealthcareStart: 30-29-0161Bdalqpclgt A1c measurementDiabetes: Hemoglobin H4ELETKHCA [facility] Start: 55-28-4489Ivrnqzzoj vaccinationInfluenza Vaccine (#1)[facility] Healthcare Comment on above:Postponed from 12/05/2023 (Patient Refused)Start: 09-05-2024 End: 75-83-5391Wjccutf encounter procedureNOCO TSR FMComment on above:Arrived Start: 08-15-2024 End: 89-58-0068Lnxznds encounter qukbddbew21/13/2025 10:30 AM EDT Office Visit [facility] [address] [place] [id number] Bigg Bowens DO [address] [place] [address] [facility] ORTHOStart: 08-14-2024 End: 40-11-6813Hwjacds encounter procedureNOCO NB ORTHOComment on above:Arrived Start: 08-07-2024 End: 13-35-4352Rmpknnybyq A1c/Hemoglobin.total in BloodHemoglobin A1c Lab Today Type 2 diabetes mellitus with complication ([facility]/HCC) Expected: 08/07/2024 ( Approximate), Expires: 05/08/2025[facility] Work Phone: Comment on above:Expected: 08/07/2024 (Approximate), Expires: 05/08/2025Start: 79-77-8098Mtukkydpxd A1c measurementDiabetes: Hemoglobin H5VRQMNHCA [facility] DivisionStart: 05-11-2024 End: 13-08-0238Yowqdof encounter procedureNOCO NB ORTHOComment on above:Arrived Start: 05-08-2024 End: 76-18-7368Uztwmzq encounter procedureNOCO TSR FMComment on above:Medicare annual wellness visit, initial (Primary Dx); Stage 3a chronic kidney disease (HCC) (CMS/HCC); Primary hypertension (CMS/HCC); Mixed hyperlipidemia (CMS/HCC); Type 2 diabetes mellitus with complication (CMS/HCC); Obstructive sleep apnea syndrome; Chronic GERD; Lumbar spondylosis; Degeneration of intervertebral disc of lumbar region, unspecified whether pain present; Arthritis, multiple joint involvement; Environmental and seasonal allergies; Vitamin D deficiency; CPAP (continuous positive airway pressure) dependenceStart: 05-01-2024 End: 26-19-1399Wdmrempoooprl metabolic 2000 panel - Serum or PlasmaComprehensive metabolic panel Lab Routine Essential hypertension ([facility]) Expected: 05/01/2024, Expires: 05/01/2025N[facility] HealthcareComment on above:Expected: 05/01/2024, Expires: 05/01/2025Start: 05-01-2024 End: 28-39-8265Dmzrsucfxq a1c with eagHemoglobin a1c with eag Lab Routine Type 2 diabetes mellitus with complication ([facility]) Expected: 05/01/2024 (Approximate), Expires: 05/01/2025[facility] Work Phone: Comment on above:Expected: 05/01/2024 (Approximate), Expires: 05/01/2025Start: 05-01-2024 End: 30-70-7883Yzezg 1996 panel - Serum or PlasmaLipid panel Lab Routine Mixed hyperlipidemia ([facility]) Expected: 05/01/2024 (Approximate), Expires:05/01/2025 [facility] HealthcareComment on above:Expected: 05/01/2024 (Approximate), Expires: 05/01/2025Start: 04-24-2024 End: 14-93-0216Ncpirja encounter qucmtevix19/20/2025 10:30 AM EST Office Visit [facility] [address] [place] [phone] Pretty Moreland DO [address] [place] [address] [facility] ORTHOStart: 04-14-2024 End: 98-72-4100Vrxsjro encounter procedureNOMS TSR DERMComment on above:Arrived Start: 90-57-5918Juaiowpjsv A1c measurementDiabetes: Hemoglobin G6VXDKA HealthcareStart: 00-00-5452Nyfnibfbl vaccinationInfluenza Vaccine (#1)[facility] HealthcareComment on above:Postponed from 12/05/2023 (Patient Refused)Start: 01-17-2024 End: 14-71-0863Vxqzpja encounter procedureNOMS TSR FMComment on above:Type 2 diabetes mellitus with complication (CMS/HCC) (Primary Dx); Stage 3a chronic kidney disease (HCC) (CMS/HCC)Start: 01-10-2024 End: 29-33-1887Kphbkvx encounter procedureNOMS TSR DERMComment on above:Arrived Start: 37-05-1819Ewkzizhtho A1c measurementDiabetes: Hemoglobin P8UOORR HealthcareStart: 23-05-9063Dwewrxms screeningDiabetes: Retinopathy ScreeningNOCO HealthcareStart: 30-65-0871Mcwpjgsah vaccinationInfluenza Vaccine (#1)[facility] HealthcareStart: 11-30-2023 End: 83-62-2292Vcsiwuw encounter procedureNOMS TSR DERMComment on above:Arrived Start: 75-81-6920Ucjia screening for proteinDiabetes: Urine Protein Screening [facility] HealthcareStart: 05-04-2022 End: 56-69-5571Gcsaileju to same day surgery gynkgg0905/04/2022 Surgery IP Unit BackBrian MD [address] [place] [address] COLONOSCOPYMZ EndoscopyComment on above:COLONOSCOPYStart: 05-04-2022 End: 51-14-3266Pxnbf ca scrn not hi rsk indCOLORECTAL CANCER SCREENING, NOT HIGH RISK Screening for colon cancer 05/04/2022 7:30 AM ESTMZ ENDOSCOPYStart: 05-04-2022 End: 81-89-1004Kghnzikrzxbxiqvdrdtnowzgfu transoral diagnosticEGD ESOPHAGOGASTRODUODENOSCOPY Screening for colon cancer 05/04/2022 7:30 AM ESTMZ ENDOSCOPYStart: 01-99-3197Spkeyavjaw hospital visit by puytoafxb57/30/2023 Hospital Encounter IP Unit BackBrian MD [address] [place] [address] [facility] EndoscopyStart: 77-64-4702Nqozpkjnnj measurementCreatinine [facility] [place], [place]Start: 14-75-7376Lpqxxgnol monitoringPotassium [facility]- [place], [place]Start: 44-90-8661JNTBU-19 Vaccine (2 - Booster for Hermila series)COVID-19 Vaccine (2 - Booster for Hermila series)[facility]: 07-11-2020 End: 17-11-7579YiwzaqrxcozWRVO Physical TherapyStart: 07-08-2020 End: 00-92-9343Slbqygvkcff36/05/2021 Appointment Physical Therapy Nathalie Burnham Physical TherapyStart: 07-05-2020 End: 41-19-6413Ooewvtxvukh10/02/2021 Appointment Physical Therapy Nathalie Burnham Physical TherapyStart: 07-03-2020 End: 68-34-8555Udacqqlrzyz65/31/2021 Appointment Physical Therapy Quynh Worthington PTMWHZ Physical TherapyStart: 07-01-2020 End: 34-74-8088Cbtysqzyelm99/29/2021 Appointment Physical Therapy Alisia Sapp Physical TherapyStart: 06-28-2020 End: 43-91-6794Dhtxfiyimjd84/26/2021 Appointment Physical Therapy Quynh Worthington PTMWHZ Physical TherapyStart: 06-26-2020 End: 11-39-8627Ljrxbtuuwwp11/24/2021 Appointment Physical Therapy Nathaile Burnham Physical TherapyStart: 06-24-2020 End: 74-11-4512Oxziziwiwhi63/22/2021 Appointment Physical Therapy Alisia Sapp Physical TherapyStart: 06-24-2020 End: 21-53-9169Avxqqheobzr18/22/2021 Appointment Physical Therapy Nathalie Burnham Physical TherapyStart: 06-21-2020 End: 75-66-1270PhcoflpngttSJYK Physical TherapyStart: 06-19-2020 End: 31-87-2932Rgehaxjbbnd71/17/2021 Appointment Physical Therapy Quynh Worthington PTMGato Physical TherapyStart: 06-17-2020 End: 74-42-4103Edqpaatbnak28/15/2021 Appointment Physical Therapy Nathalie Burnham Physical TherapyStart: 06-14-2020 End: 47-98-6687Bevdnvxsgtb96/12/2021 Appointment Physical Therapy Nathalie Burnham Physical TherapyStart: 06-12-2020 End: 50-93-7558Irxrojwwzog34/10/2021 Appointment Physical Therapy Nathalie Burnham Physical TherapyStart: 06-10-2020 End: 33-45-1387Aqvwkueidxm84/08/2021 Appointment Physical Therapy Nathalie Burnham Physical TherapyStart: 06-07-2020 End: 32-42-8282Vohlklitmqq96/05/2021 Appointment Physical Therapy Quynh Worthington PTMGato Physical TherapyStart: 06-05-2020 End: 77-70-4145Bygqwoofcsh29/03/2021 Appointment Physical Therapy [facility] Worthington [facility] Physical TherapyStart: 22-61-6396Cbdypvtn Rgsszfynt86/01/2021 Hospital Encounter Physical Therapy Alisia Sapp Physical TherapyStart: 53-70-7148Plgndyhx Lxqovvjrc14/26/2021 Hospital Encounter Physical Therapy Alisia SappGato Physical TherapyStart: 05-09-2020 End: 32-78-2085Pkktlale EncounterBETHESDA HOSPITALGato PRE ADMITComment on above:RIGHT SHOULDER ARTHROSCOPY PROBABLE ROTATOR CUFF REPAIR... LONG HEAD BICEPS TENODESISStart: 04-17-2020 End: 97-34-4434Jxkdfbqelxo30/13/2021 Appointment Physical Therapy Rosalino Singh PTAMMALACHI Physical TherapyStart: 04-15-2020 End: 43-11-4028Drxygfdbnap53/11/2021 Appointment Physical Therapy Danay Jimenez PTMGato Physical TherapyStart: 04-11-2020 End: 47-66-8598Hzonloxdqnb17/07/2021 Appointment Physical Therapy [facility] Jimenez [facility] Physical TherapyStart: 04-09-2020 End: 35-29-1239Mzahalsjqyh70/05/2021 Appointment Physical Therapy Rosalino Singh PTAMWHGato Physical TherapyStart: 04-03-2020 End: 65-83-2450Updsfhzsojz75/30/2020 Appointment Physical Therapy Rosalino Singh PTAMMALACHI Physical TherapyStart: 04-01-2020 End: 42-82-7371Vzvhmbxxrqp83/28/2020 Appointment Physical Therapy Rosalino Singh PTAMMALACHI Physical TherapyStart: 03-27-2020 End: 08-21-9902Aplbmiwhsdr16/23/2020 Appointment Physical Therapy Jessica Albarado, PT [address] [place] [address] [phone] Physical TherapyStart: 03-26-2020 End: 01-85-3579Cjwjehxhjzi57/22/2020 Appointment Physical Therapy Danay Jimenez, PTMWHZ Physical TherapyStart: 03-21-2020 End: 93-55-4714Vsgskscfnkw94/17/2020 Appointment Physical Therapy Rosalino Singh PTAMWHGato Physical TherapyStart: 02-52-0978Nvrmv cancer screen colonoscopyColon cancer screen [facility]oscopyMer[facility]: 03-91-9809Gtisapvza vaccinationFlu vaccine (#1)[facility]: 10-97-5248Bvcvxv Wellness Visit (AWV)Annual Wellness Visit (AWV)[facility]: 03-02-2018 Pneumococcal 65+ years Vaccine (2 of 2 - PCV13)Pneumococcal 65+ years Vaccine (2 of 2 - PCV13)[facility]: 97-64-1595Eihtdjwp Vaccine (1 of 2) Shingles Vaccine (1 of 2)[facility]: 60-79-2146FCfY/Tdap/Td vaccine (1 - Tdap)DTaP/Tdap/Td vaccine (1 - Tdap)[facility]: 80-50-0162Mfzhmmtgu C screeningHepatitis C screenBON [facility]: 35-13-1417VVPUE-19 Vaccine (1 of 2)COVID-19 Vaccine (1 of 2)[place] Start: 35-19-6947FSRII-19 Vaccine (1)COVID-19 Vaccine (1)[facility] Work Phone: start: 28-91-2185Ajkwyjwwym ScreenDepression ScreenBON [facility] Hospitalart: 06-22-1955[object Object]Diabetic foot examHuntington Beach, KYStart: 36-83-8459P1C test (Diabetic or Prediabetic)A1C test (Diabetic or Prediabetic)[place], [place]Start: 94-87-0629Pwmklbll retinal examDiabetic retinal examHuntington [place], KYStart: 97-46-4978Gqqpf panelBON SECOhio State East Hospitalart: 12-76-9548Kfwcj screenLipid screenHuntington [place], KYStart: 63-56-0236YFA screenAAA screenHuntington [place], KYStart: 1943 Creatinine measurementCreatinine monitoringHuntington [place], KYStart: 1943 Creatinine monitoringCreatinine monitoringMansfield Hospital, [place]Start: 1943 Hepatitis C screeningHepatitis C screenHuntington Beach, KYStart: 1943 Potassium monitoringPotassium monitoringHuntington Beach, KYOxygen therapy [Minimum Data Set]Initiate Oxygen Therapy Protocol Respiratory Care Routine Daily until discontinued starting 05/09/2020[place], KYComment on above:Daily until discontinued starting 05/09/2020 End: 70-55-1925KVKL glucosePOCT glucose Point of Care Testing Routine One Time for 1 Occurrences starting 05/09/2020 until 05/09/2020[place] Comment on above:One Time for 1 Occurrences starting 05/09/2020 until 05/09/2020 XR Shoulder - left 2 ViewsXR shoulder 2+ views left Imaging Routine Left shoulder pain, unspecified chronicity 04/24/2024 8:09 AM [employer] Work Phone: Immunizations Immunization DateImmunizationNotesCare OhsmlmxdCnmcqzhn36-98-6569Lavtfekkj, High-dose Seasonal, Quadrivalent, Preservative Mayo Plata NP Work Phone: [phone] [place], [place] [address]Uasuvkebdt71-00-7106mmtmyryxa virus vaccine, unspecified formulationGerri Rine REFUELING RAMP ATTENDANT Work Phone: [phone] [place], [place] [address]Mzgjmpiayf72-76-1464Qtqokptxy, High-dose Seasonal, Quadrivalent, Preservative FreeGerri Rine REFUELING RAMP ATTENDANT Work Phone: [phone] [place], [place] [address]Ntqitsyprv48-54-2430dxooqovnu, injectable, quadrivalent, preservative freeGerri Rine REFUELING RAMP ATTENDANT Work Phone: [phone] [place], [place] [address]Tppopyxoue60-50-5859Vdfxievb trivalent influenza vaccine, adjuvanted, preservative freeGerri Rine REFUELING RAMP ATTENDANT Work Phone: [phone] [place], [place] [address]Sodxnjqzph25-76-7854hdujxpiut, high dose seasonal, preservative-freeGerri Rine REFUELING RAMP ATTENDANT Work Phone: [phone] [place], [place] [address]Kupbqsshod64-90-0508kmczaslyerpi polysaccharide vaccine, 23 valentGerri Rine REFUELING RAMP ATTENDANT Work Phone: [phone] [place], [place] [address]Lrmusupnis07-57-9079sunmgqmdf, high dose seasonal, preservative-freeGerri Rine REFUELING RAMP ATTENDANT Work Phone: [phone] [place], [place] [address]Swsmlgooix32-68-1371neaconzps, injectable, quadrivalent, contains preservativeGerri Rine REFUELING RAMP ATTENDANT Work Phone: [phone] [place], [place] [address]Xedkyytkak22-12-4330cvyvsfgic, injectable, quadrivalent, preservative freeGerri Rine REFUELING RAMP ATTENDANT Work Phone: [phone] [place], [place] [address]Nmeivoycbn35-66-4712okbagmlzidiu conjugate vaccine, 13 valentGerri Rine REFUELING RAMP ATTENDANT Work Phone: [phone] [place] [address] Payers DatePayer CategoryPayerPolicy ID2017MedicareMEDICARE MEDICARE PART A AND B xxxxxxxxxx 2016-Present [phone] [place] [address] xxxxxxxxxx [id number] Health InsuranceM[facility] MEDIC[facility] SUPP xxxxxxxxx 2016-Present [address] [address] [place] [address]ehewlyzwb [id number] [id number] Health [id number] [id number] 1960Medicare [id number] Health [id number]pkt [id number] 2.0.1.408130.3.579.2.73266-37-3373Phjxbjq6568613 2.0.1.996614.3.579.2.26525-97-7294Dtndeik1531184 2.0.1.948900.3.579.2.25951-58-6057Puebzos2355576 2..1.880705.3.579.2.73241-00-1561Xciuaib0898404 2.0.1.211413.3.579.2.75155-92-7581Ocazqjx18286071 2.0.1.053047.3.579.2.35747-15-0720Wnjejyf75917677 2.840.1.396229.3.579.2.39497-93-4805Vvgfgfb95915640 2.0.1.408255.3.579.2.44673-79-8987Uxavcyp55366594 2.16.840.1.602637.3.579.2.26283-99-4579Inuoszl41714262 2.16.840.1.682538.3.579.2.133672-54-0290Bsapaxp80951693 2.16.840.1.175444.3.57[id number] 2.840.1.777677.3.57[id number] 2.840.1.883490.3.57[id number] 2.840.1.093277.3.57[id number] 2.840.1.054701.3.57[id number] 2.840.1.995248.3.57[id number] 2.840.1.761308.3.57[id number] 2.840.1.002644.3.57[id number] 2.840.1.740745.3.57[id number] 2.840.1.155164.3.57[id number] 2.840.1.572018.3.57[id number] 2.840.1.239944.3.579.2.196 Social History DateTypeDetailFacilityStart: 12-15-2016 End: 68-93-1829Mzmpvug smoking status NHISFormer [place], [place] Start: 02-06-1991 End: 48-81-9532Wkqkdib of tobacco useCurrent smokerH[place], [place]Start: 02[place]1991 End: 31-46-0483Xjncqxg of tobacco useCigarette [place] End: 55-44-5568Nasihfu of tobacco usePipe SmokerToledo Hospitalart: 12-15-2016 End: 20-92-5641Nayqvbl use and exposureFormer [place], [place]History of tobacco useSnuff [place], [place]History of tobacco useChews Tobacco [facility] Hospitalart: 12-15-2016 End: 64-54-1206Kmmfjmh intakeCurrent drinker of alcohol (finding)[facility]: 42-80-5611Sej Assigned At BirthNot on [place] Exposure to SARS-CoV-2 (event)Not sureToledo Hospitalart: 12-15-2016 End: 85-29-3444Swerifv intakeYesNOMS HealthcareStart: 05-09-2020 End: 43-87-2415Jchtljw intakeNOCO HealthcareStart: 76-58-2072Jhykjre SDOH Upnablzvw4BYS [facility] [employer] Work Phone: start: 70-57-3587Fkrjovi SDOH Food Pfxqz5DIG [facility] Work Phone: start: [phone] use and exposureSmokeless tobacco non-userNOMS HealthcareWithin the last year, have you been afraid of your partner or ex-partner?NoNOMS HealthcareDo you belong to any clubs or organizations such as anabaptist groups, unions, fraternal or athletic groups, or school groups?YesNOMS HealthcareAre you now , , , , never or living with a partner?MarriedNOMS HealthcareHow often to you have a drink containing alcohol?Monthly or lessNOMS HealthcareHow many standard drinks containing alcohol do you have on a typical day?1 or 2NOMS HealthcareHow often do you have 6 or more drinks on 1 occasion?NeverST. MARK'S [facility]OS[facility]ITAL HealthcareStart: 67-34-0914Yom hard is it for you to pay for the very basics like food, housing, medical care, and heatingNot hard at allHCA Midwest DivisionDo you feel stress - tense, restless, nervous, or anxious, or unable to sleep at night because yourmind is troubled all the time - these days [OSQ]Not at [facility](I/We) worried whether (my/our) food would run out before (I/we) got money to buy more.Never trueST. MARK'S HOSPITAL HealthcareStart: 35-61-1717Jlbanim CommentLast smoked: more than 10 years agoNALLIANCEHEALTH SEMINO[facility] – [facility] HealthcareStart: 17-19-1154Eewautl CommentI drink a beer once a week, Caffeine intake: 1-2 cups per day coffeeST. MARK'S HOSPITAL HealthcareStart: 93-81-1532Lxwbhyt CommentI drink a beer once a weekNOCO HealthcareHow often to you have a drink containing alcohol?2-4 times a monthNOCO HealthcareHow hard is it for you to pay for the very basics like food, housing, medical care, and heatingNot very hardHCA Midwest Division Medical Equipment Procedure CodeEquipment CodeEquipment Original TextEquipment IdentifierDates [place] [employer] 4.75x19.1 Mm Tiana [id number]: 05-09-2020 [id number]: 04-20-2023 End: 59-74-5936Irorc [id number]: 80-97-0976Yreph [id number]: 08-15-2024 End: 59-87-6414Vflmd [id number]: Units 4 (four) times a day as needed (blood glucose monitoring with insulin)[id number]: 01-28-2025 Clinical Notes 07-16-2021 to 01-28-2025 Note Date & RhkwLqnmLznarqyg08-37-1550 Telephone encounter Note* Telephone Encounter - Laya Plata NP - 01/28/2025 9:17 PM EDT New rx for lancets sent per pts e request [facility] DivisionIrcmzncdea11-74-5727 Miscellaneous Notes* Telephone Encounter - Laya Plata NP - 01/28/2025 9:17 PM EDT New rx for lancets sent per pts e request documented in this [facility]10-24-2025 Telephone encounter Note* Telephone Encounter - Deidra Burnette MA - 01/26/2025 11:03 AM EDT Pt requesting refill on his lancets. He is requesting the Rx state that he is using them 3 times daily as he was instructed to do extra testing. [facility] DivisionTtwzetqswn55-88-0715 Miscellaneous Notes* Telephone Encounter - Deidra Burnette MA - 01/26/2025 11:03 AM EDT Pt requesting refill on his lancets. He is requesting the Rx state that he is using them 3 times daily as he was instructed to do extra testing. documented in this [facility]10-13-2025 Telephone encounter Note* Telephone Encounter - Laya Plata NP - 01/15/2025 5:16 PM EDT Sent as requested [place] [id number] Miscellaneous Notes* Telephone Encounter - Laya Plata NP - 01/15/2025 5:16 PM EDT Sent as requested * Telephone Encounter - Lindsay Diaz MA - 01/15/2025 12:37 PM EDT He would like to get a refill on his atenolol 50mg to [facility] Last appt: 01/03/2025 Next appt: 02/26/2025 documented in this [facility]10-13-2025 Telephone encounter Note* Telephone Encounter - Lindsay Diaz MA - 01/15/2025 12:37 PM EDT He would like to get a refill on his atenolol 50mg to [facility] Last appt: 01/03/2025 Next appt: 02/26/2025 [facility] DivisionObqnqnumtn53-97-8100 Telephone encounter Note* Telephone Encounter - Laya Plata NP - 01/05/2025 9:41 AM EDT Resent rx with the 5 units in the sig [facility] DivisionBaxbrgicrd15-64-8922 Miscellaneous Notes* Telephone Encounter - Laya Plata NP - 01/05/2025 9:41 AM EDT Resent rx with the 5 units in the sig documented in this [facility]10-03-2025 Telephone encounter Note* Telephone Encounter - Laya Plata NP - 01/05/2025 6:50 AM EDT New insulin rx sent as insurance denied lispro rx [place] [id number] Miscellaneous Notes* Telephone Encounter - Laya Plata NP - 01/05/2025 6:50 AM EDT New insulin rx sent as insurance denied lispro rx documented in this encounterHCA Midwest DivisionRbkmwjibtr47-34-0174 History of Present illness Narrative* Laya Plata NP - 01/03/2025 11:00 AM EDT Images from the original note [...] 2 weeks. A nerve block procedure at [facility] is scheduled for 01/11/2025, with arthroscopy planned for 03/19/2025 if needed. Mild pain occurs when raising his arm, tolerable for short periods. He uses a creamfor additional relief and prefers to delay further treatment until after his trip to [facility] at the end of the month. and swelling), shoulder (discomfort). Osteo Bi-Flex for finger stiffness and swelling, steroid injections, cream for additional relief. Diabetes Mellitus His A1c increased from 8% in 08/2024 to 9.1%, likely due to steroid injections. Blood sugar spiked to 250 the morning after the injection. He monitors his blood sugar, typically 80-90 in the morningsand around 150 post-lunch. This morning, it was 80. He plans to discontinue steroid injections due to their impact on blood sugar. He reports no chest pain or shortness of breath, except after sexualactivity. He uses Tresiba insulin and insulin pens [...] SURGERY KNEE SURGERY Arthroscopy knee MOHS SURGERY [place] REPAIR OF NASAL SEPTUM nasal septoplasty to [...] appt for nerv block in [facility] , sent by dr bowens , has arthroscopy on books for 03-19-25 Mixed hyperlipidemia Comments: rev the last lipid panel from may,ldl 49, ? atorastatin causing myalgia, consider trial lowdose crestorm call if issues Orders: - rosuvastatin [...] before meals Stage 3a chronic kidney disease ([facility]) Comments: cr 1.53, gfr 46 on 05-07-24 [...] mar after labs . documented in this encounterHCA Midwest DivisionStvwflwsfm50-91-6107 Instructions* Patient Instructions* Laya Plata NP - 01/03/2025 11:00 AM [...] how well this work documented in this [facility]09-15-2025 Telephone encounter Note* Telephone Encounter - Oneida oNel MA - 12/18/2024 2:24 PM EDT PT requesting refill on lisinopril and fluticasone, please send to [facility]. [facility] DivisionVkljjvjtno47-55-1387 Miscellaneous Notes* Telephone Encounter - Oneida Noel MA - 12/18/2024 2:24 PM EDT PT requesting refill on lisinopril and fluticasone, please send to [facility]. documented in this [facility]09-15-2025 History of Present illness Narrative* ASAEL Thao - 12/18/2024 11:00 AM EDTAssociated Order(s): L Inj/Asp: L glenohumeral; L Inj/Asp: [...] MG/ML Consent was given by the patient. * Bigg Bowens, DO - 12/18/2024 11:00 AM EDT Images from the original note were not included. @PADDYDATE@ Tony Starks is a 79 y.o. male who presents [...] He has previously sought pain management at [facility], where he received nerve blocks for his lumbar spine. He hasan upcoming appointment with his physician in a few weeks. His inquires about the possibility of surgery to address the shoulder. He expresses interest in receiving another injection today as heplans to participate in a [employer] trip to [facility] at the end of January 2025. He [...] SURGERY KNEE SURGERY Arthroscopy knee MOHS SURGERY [place] REPAIR OF NASAL SEPTUM nasal septoplasty to [...] rotation. He has good strength with forward flexion,internal and external rotation and resisted supination. There is no Tomer deformity. Positive Cantrell, Neer impingement, positive Whipple, positive Sharon's tests are observed. Right shoulder: The skin is warm, dry, and intact. There is no swelling, atrophy, or deformity. Thepatient can raise the arm overhead. Full forward [...] was suggested as a potential treatment for longer- lasting relief, and he will discuss this with his bridge painter during his upcoming appointment. Another cortisone [...] shoulder. The glenohumeral joint was visualized. The a bernard was prepped with alcohol and betadine. Using ultrasound guidance, a new 25 gauge 1-1/2 inch needle was inserted into the glenohumeral joint from a posterior approach. A mixture of 1 mL of 1% plain lidocaine and 1 mL of betamethasone was then injected. The patient tolerated this well. A Band-Aidwas applied. The patient was instructed to ice the shoulder and to watch for any signs of infectionincluding redness, increased pain, drainage from the injection [...] note was created using voice recognition through [employer]. documented in this encounterHCA Midwest DivisionWfvwrcvscb64-77-8325 Telephone encounter Note* Telephone Encounter - Laya Plata NP - 12/05/2024 11:30 AM EDT Sent as requested. [facility] DivisionVvddbikmyd12-16-0132 Miscellaneous Notes* Telephone Encounter - Laya Plata NP - 12/05/2024 11:30 AM EDT Sent as requested. * Telephone Encounter - Lindsay Diaz MA - 12/05/2024 10:51 AM EDT Refill on Omeprazole to [facility] Last appt: 09/05/2024 Next appt: 01/03/2025 documented in this encounterHCA Midwest DivisionHavipvxsiz37-44-9227 Telephone encounter Note* Telephone Encounter - Lindsay Diaz MA - 12/05/2024 10:51 AM EDT Refill on Omeprazole to [facility] Last appt: 09/05/2024 Next appt: 01/03/2025 [facility] DivisionTomqossqxm33-35-5991 Telephone encounter Note* Telephone Encounter - Oneida Noel MA - 09/19/2024 10:17 AM EDT Requesting refill on januvia, please send to [facility]. [facility] DivisionPblhybmbed01-20-1733 Miscellaneous Notes* Telephone Encounter - Oneida Noel MA - 09/19/2024 10:17 AM EDT Requesting refill on januvia, [facility] send to [facility]. documented in this encounterHCA Midwest DivisionHrvdtmtvpc36-75-6081 History of Present illness Narrative* Laya Plata NP - 09/05/2024 11:00 AM EDT Images from the original note [...] a rare 200 is the highest, does attemptto eat fiber first with meals History of [...] REPAIR COLONOSCOPY 2010 KNEE SURGERY Arthroscopy knee [place] REPAIR OF NASAL SEPTUM nasal septoplasty to [...] Physical Exam Constitutional: Appearance: Normal appearance. Comments: [place] for age, baseline self HENT: Head: Normocephalic [...] mo recheck. aic prior. documented in this [facility]06-03-2025 Instructions* Patient Instructions* Laya Plata NP - 09/05/2024 11:00 AM EDT Pure protein snack at bedtime Push water harder, this will help the cramps and the sugar!! Stay on your feet after meals Water after each meal Average blood sugar in 3 mo documented in this [facility]05-28-2025 Telephone encounter Note* Telephone Encounter - Oneida Noel MA - 08/30/2024 9:04 AM EDT PT requesting refill on loratadine, please send to [facility]. [facility] DivisionZupvlqjriv80-28-2210 Miscellaneous Notes* Telephone Encounter - Oneida Noel MA - 08/30/2024 9:04 AM EDT PT requesting refill on loratadine, please send to [facility]. documented in this encounterHCA Midwest DivisionHjnwuunkqq54-57-2647 History of Present illness Narrative* Bigg Bowens DO - 08/14/2024 10:30 AM EDT Images from the original note were not included. @ENCDATE@ Tony A Raudel is a 79 y.o. male who [...] Oral, Daily cholecalciferol (Vitamin D-3) 50 MCG (2000 UT) tablet Every 24 hours famotidine (PEPCID) [...] REPAIR COLONOSCOPY 2010 KNEE SURGERY Arthroscopy knee [place] REPAIR OF NASAL SEPTUM nasal septoplasty to [...] rotation. He has good strength with forward flexion,internal and external rotation and resisted supination. There is no Tomer deformity. Positive Cantrell, Neer impingement, positive Whipple, positive Sharon's tests are observed. Right shoulder: The skin is warm, dry, and intact. There is no swelling, atrophy, or deformity. Thepatient can raise the arm overhead. Full forward [...] shoulder. The glenohumeral joint was visualized. The a bernard was prepped with alcohol and betadine. Using ultrasound guidance, a new 25 gauge 1-1/2 inch needle was inserted into the glenohumeral joint from a posterior approach. A mixture of 1 mL of 1% plain lidocaine and 1 mL of betamethasone was then injected. The patient tolerated this well. A Band-Aidwas applied. The patient was instructed to ice the shoulder and to watch for any signs of infectionincluding redness, increased pain, drainage from the injection [...] note was created using voice recognition through [employer]. documented in this [facility]04-07-2025 Telephone encounter Note* Telephone Encounter - Josefina Uriarte RN - 07/10/2024 12:33 PM EDT Med refill request. Med loaded [facility] DivisionRqieomwxjo15-78-3519 Miscellaneous Notes* Telephone Encounter - Josefina Uriarte RN - 07/10/2024 12:33 PM EDT Med refill request. Med loaded documented in this [facility]03-03-2025 Telephone encounter Note* Telephone Encounter - Laya Plata NP - 06/05/2024 11:40 AM EST Sent as requested [facility] DivisionIysxdsahnl24-54-2271 Miscellaneous Notes* Telephone Encounter - Laya Plata NP - 06/05/2024 11:40 AM EST Sent as requested * Telephone Encounter - Lindsay Diaz MA - 06/05/2024 10:36 AM EST He needs a refill on his Famotidine and Lisinopril sent to [facility] documented in this encounterHCA Midwest DivisionWtxjwwpzkx20-91-6464 Telephone encounter Note* Telephone Encounter - Lindsay Diaz MA - 06/05/2024 10:36 AM EST He needs a refill on his Famotidine and Lisinopril sent to [facility] DivisionGbmbajmcbf18-13-2376 Telephone encounter Note* Telephone Encounter - Laya Plata NP - 05/26/2024 7:54 AM EST Insurance letter to change insuline to deglutide.new rx sent. This was already sent [facility] DivisionJdelmqvyci09-25-1572 Miscellaneous Notes* Telephone Encounter - Laya Plata NP - 05/26/2024 7:54 AM EST Insurance letter to change insuline to deglutide.new rx sent. This was already sent documented in this encounterHCA Midwest DivisionRcukglbwbl83-34-8655 Telephone encounter Note* Telephone Encounter - Laya Plata NP - 05/21/2024 3:35 PM EST [facility]ill [facility] for longer supply per pt request [facility] DivisionBxsbacuwgh22-53-1500 Miscellaneous Notes* Telephone Encounter - Laya Plata NP - 05/21/2024 3:35 PM EST Refill [facility] for longer supply per pt request documented in this encounterHCA Midwest DivisionKhokiumlcm04-92-4972 History of Present illness Narrative* ASAEL Thao - 05/11/2024 2:45 PM ESTAssociated Order(s): L Inj/Asp: L glenohumeral; L Inj/Asp: [...] MG/ML Consent was given by the patient. * Bigg Bowens DO - 05/11/2024 2:45 PM EST Images from the original note were not included. @ENCDATE@ Tony Kelsy Raudel is a 78 y.o. male who presents for Pain of the Left Shoulder HPI: History of Present Illness The patient is an 78-year-old arjjc-gnws-cwqfgetc gentleman seen as a new patient to [...] REPAIR COLONOSCOPY 2011 KNEE SURGERY Arthroscopy knee [place] REPAIR OF NASAL SEPTUM nasal septoplasty to [...] Positive Cantrell, Neer impingement, positive Whipple, positive Sharon's tests are observed. RIGHT SHOULDER The skin is warm, dry, and intact. There is no swelling, atrophy, or deformity. The patient can raise the arm overhead. Full forward elevation, abduction, internal and external rotation. No weakness with internal and external rotation, resisted supination, or forward flexion. Negative Sharon's. Negative Neer/Cantrell impingement. Ortho Exam Results Imaging [...] type 2 acromion. Visualized lung molina are cl ear. MRI of the left shoulder performed 03/31/2024 at the [facility] report and images are reviewed. Glenohumeral cartilage appears to be preserved. Areas of tendinosis with maybe low grade partialthickness tear in the supraspinatus, there is tearing of the superior labrum, arthritic changes arepresent at the AC joint. There is no atrophy of the rotator cuff. ASSESSMENT AND PLAN: I reviewed the history, physical exam, diagnostic studies, and diagnosis with the patient. Assessment & Plan The patient is an 78-year-old mgdqp-wtwq-xakrropg male with SLAP tear, rotator cuff tendinosis, [...] shoulder. The glenohumeral joint was visualized. The a bernard was prepped with alcohol and betadine. Using ultrasound guidance, a new 25 gauge 1-1/2 inch needle was inserted into the glenohumeral joint from a posterior approach. A mixture of 1 mL of 1% plain lidocaine and 1 mL of betamethasone was then injected. The patient tolerated this well. A Band-Aidwas applied. The patient was instructed to ice the shoulder and to watch for any signs of infectionincluding redness, increased pain, drainage from the injection [...] note was created using voice recognition through [facility]. documented in this encounterHCA Midwest DivisionEilxpeyrmg84-24-6834 History of Present illness Narrative* aLya Plata NP - 05/08/2024 11:00 AM EST Subjective : Chief Complaint: Tony Starks is [...] nonsmoker (smoked 1 ppd for 25 yrs, quitabout 16 yo) C/o feeling that he is [...] in the morning and 1 tablet (20 mg)before bedtime. 180 tablet 3 fluticasone (Flonase) 50 [...] mouth 1 (one) time each day at thesame time 90 capsule 3 Pyridoxine HCl (Vitamin [...] left shoulder, seen by pain management in [place], they ordered mri of shoulder, saw dr [...] Yes Vision Screening: Yes, patient sees regular acid tank cleaner/correction officer pen[facility] Cognitive Screening Three Word Registration: Yanet Cuadra, Clock Drawing: Normal Clock - 2 Three Word Recall: All 3 words correct - 3 Total Score (0-5 Points): 5 Objective : BP 120/50 (BP Location: Left arm, Patient Position: Sitting, BP Cuff Size: Adult) Pulse 65 Temp98.8 F (Tympanic) Resp 18 Ht 5' 9 [...] Rev MRI of left shoulder ordered per [facility] management Assessment/Plan : Diagnoses and [...] , aic lab prior. documented in this encounterHCA Midwest DivisionJmdahbekdf60-04-2493 Instructions* Patient Instructions* Laya Plata NP - 05/08/2024 11:00 AM [...] appt in 4 mo documented in this encounterHCA Midwest DivisionLtraoirsuz57-87-6785 Evaluation note* Diagnosis Medicare annual wellness visit, initial- Primary Stage 3a chronic kidney disease (HCC) ([facility]) Primary hypertension ([facility]/HCC) Unspecified essential hypertension Mixed hyperlipidemia ([facility]/HCC) Mixed hyperlipidemia Type 2 diabetes mellitus with complication ([facility]) Obstructive sleep apnea syndrome Obstructive sleep apnea (adult) (pediatric) Chronic GERD Lumbar spondylosis Lumbosacral spondylosis without myelopathy Degeneration of intervertebral disc of lumbar region, unspecified whether pain present Arthritis, multiple joint involvement Unspecified arthropathy, multiple sites Environmental and seasonal allergies Vitamin D deficiency CPAP (continuous positive airway pressure) dependence Dependence on other enabling machine documented in this encounter [facility] DivisionIbfkvdlgth99-11-2201 History of Present illness Narrative* Laya Plata NP - 05/01/2024 5:48 PM EST Lab orders created documented in this encounterHCA Midwest DivisionHyhkytxmyd53-32-9425 History of Present illness Narrative* January Eldridge [...] REPAIR COLONOSCOPY 2010 KNEE SURGERY Arthroscopy knee [place] REPAIR OF NASAL SEPTUM nasal septoplasty to [...] grossly intact. He does have a positive Sharon's for pain, no click. No crepitance noted. [...] the left shoulder. This is from the [facility]. He does have some rotatorcuff thinning [...] 04/25/2024 5:32 PM EST documented in this encounterHCA Midwest DivisionXhazkxummc74-11-0114 Telephone encounter Note* Telephone Encounter - Laya Plata NP - 04/14/2024 11:47 AM EST noted [facility] DivisionFfqjuvfhjg17-09-7392 Miscellaneous Notes* Telephone Encounter - Laya Plata NP - 04/14/2024 11:47 AM EST noted * Telephone Encounter - Lindsay Diaz MA - 04/14/2024 10:49 AM EST Patient was in for an appointment with derm and on his way out he asked me to let you know: he has an appointment with Dr. Brown on 04/24/2024 re: the left shoulder documented in this encounterHCA Midwest DivisionOhhqftpwir77-94-6978 Telephone encounter Note* Telephone Encounter - Lindsay Diaz MA - 04/14/2024 10:49 AM EST Patient was in for an appointment with derm and on his way out he asked me to let you know: he has an appointment with Dr. Brown on 04/24/2024 re: the left shoulder [facility] DivisionBlebkzykhi66-92-7625 History of Present illness Narrative* PAPI Johnson [...] cosmetic reasons. 4. Actinic keratosis Left [place] Erythematous scaly papule Patient was counseled regarding [...] limited to risks of scarring, darker or vice president of sales pigmentary changes, recurrence, incomplete removal and infection. [...] tenderness Cryotherapy, skin lesion - Left [place] 5. Lichen simplex chronicus Right Dorsal Hand [...] Next Visit: 1 year documented in this encounterHCA Midwest DivisionEpwpjenkmu55-91-8927 History of Present illness Narrative* Laya Plata, [...] 25 mg, Oral, Every morning [facility] [place] 32G X 4 MM misc Inject under [...] REPAIR COLONOSCOPY 2010 KNEE SURGERY Arthroscopy knee [place] REPAIR OF NASAL SEPTUM nasal septoplasty to [...] visit: Type 2 diabetes mellitus with complication ([facility]) Comments: 8% to 10.6% , we gave him farxiga 10mg #28 samples, sent to [facility] for brenzavvy (sglt2) rec some [...] recheck 3.5 mo . documented in this [facility]10-14-2024 Instructions* Patient Instructions* Laya Plata NP - 01/17/2024 10:30 AM EDT Farxiga 10mg per day with samples for now Brenzavvy is the new medication, one daily from the [facility] pharmacy Call if any issues getting this Check aic again in 3 mo documented in this [facility]10-07-2024 Telephone encounter Note* Telephone Encounter - Laya Plata NP - 01/10/2024 11:24 AM EDT Sent as requested [facility] DivisionVwaaduxixu79-48-1661 Miscellaneous Notes* Telephone Encounter - Laya Plata NP - 01/10/2024 11:24 AM EDT Sent as requested * Telephone Encounter - Lindsay Diaz MA - 01/10/2024 10:35 AM EDT Refill Atorvastatin 40mg --med loaded [facility] documented in this [facility]10-07-2024 Telephone encounter Note* Telephone Encounter - Lindsay Diaz MA - 01/10/2024 10:35 AM EDT Refill Atorvastatin 40mg --[id number] History of Present illness Narrative* PAPI Johnson [...] limited to risks of scarring, darker or vice president of sales pigmentary changes, recurrence, incomplete removal and infection. [...] Next Visit: as scheduled documented in this encounterH[facility] [id number] Telephone encounter Note* Telephone Encounter - Laya Plata NP - 12/13/2023 11:48 AM EDT Sent as requested [place] [id number] Miscellaneous Notes* Telephone Encounter - Laya Plata NP - 12/13/2023 11:48 AM EDT Sent as requested * Telephone Encounter - Lindsay Diaz MA - 12/13/2023 10:22 AM EDT He would like a refill on Om[facility]ole and [facility] [place] [id number] Telephone encounter Note* Telephone Encounter - Lindsay Diaz MA - 12/13/2023 10:22 AM EDT He would like a refill on Omeprazole and Lisinopril to [facility] [place] [id number] Telephone encounter Note* Telephone Encounter - Laya Plata NP - 12/09/2023 1:38 PM EDT Sent as requested [place] [id number] Miscellaneous Notes* Telephone Encounter - Laya Plata NP - 12/09/2023 1:38 PM EDT Sent as requested * Telephone Encounter - Oneida Noel - 12/09/2023 11:56 AM EDT PT requesting refill on fluticasone, [facility] [place] [id number] Telephone encounter Note* Telephone Encounter - Oneida Noel - 12/09/2023 11:56 AM EDT PT requesting refill on fluticasone, please send to [facility] [id number] History of Present illness Narrative* PAPI Johnson [...] limited to risks of scarring, darker or vice president of sales pigmentary changes, recurrence, incomplete removal and infection. [...] Visit: 6 weeks ([place]) documented in this encounterH[facility] [id number] NoteCONSULTATION CONSULTATION DATE: 04/23/2022 HISTORY OF PRESENT [...] patient will contact the office as needed.[facility] [id number] NoteCONSULTATION CONSULTATION DATE: 03/19/2022 HISTORY OF PRESENT [...] be followed up in the clinic thereafter.[facility] [id number] NoteOPERATIVE NOTE OPERATION DATE:07/22/2021 PREOPERATIVE DIAGNOSIS: Left [...] Approved by: DR ABNER WASHINGTON . 07/29/2021 12:16:00[facility]04-13-2022 NotePROCEDURE: XR SHOULDER LT 2V or > [...] Electronically authenticated by: OTF LIAO Date: 2021-07-16 15:31[facility]04-13-2022 NoteCONSULTATION PAIN MANAGEMENT CONSULTATION HISTORY OF PRESENT [...] and Approved by: JESSE WOOD . 07/17/2021 16:20:00[facility] Diagnosis Pre-op testing Preoperative examination, unspecified Screening for colon cancer Special screening for malignant neoplasms, colon documented in this encounter [employer] Phone: evaluation note* Diagnosis Actinic keratosis- Primary documented in this encounter [facility]Evaluation [facility]* Diagnosis Mixed hyperlipidemia (CMS/HCC) Mixed hyperlipidemia documented in this encounter [facility] HealthcareEvaluation [facility]* Diagnosis Primary hypertension (CMS/HCC) Unspecified essential hypertension Type 2 diabetes mellitus with complication (CMS/HCC)- Primary Stage 3a chronic kidney disease (HCC) (CMS/HCC) documented in this encounter [facility] HealthcareEvaluation note* Diagnosis Type 2 diabetes mellitus with complication (CMS/HCC)- Primary Stage 3a chronic kidney disease (HCC) (CMS/HCC) Type 2 diabetes mellitus with hyperglycemia (CMS/HCC) Mixed hyperlipidemia (CMS/HCC) Mixed hyperlipidemia documented in [facility]* Diagnosis Primary hypertension ([facility]) Unspecified essential hypertension documented in this encounter [facility]* Diagnosis Segundo angioma- Primary Actinic keratosis documented in this encounter [facility]* Diagnosis Environmental and seasonal allergies documented in this encounter [facility]* Diagnosis Primary hypertension ([facility]) Unspecified essential hypertension Chronic GERD documented in this encounter [facility]* Diagnosis Melanocytic nevus of trunk- [...] mellitus with other specified complication, unspecified whether residential insulin use ([facility]) documented in this encounter [facility]* Diagnosis Elevated glucose- Primary Other abnormal glucose Essential hypertension ([facility]) Unspecified essential hypertension Elevated cholesterol ([facility]) Pure hypercholesterolemia Type 2 diabetes mellitus with complication ([facility]) Mixed hyperlipidemia ([facility]) Mixed hyperlipidemia documented in this encounter [facility]* Diagnosis Left shoulder pain, unspecified chronicity- Primary documented in this encounter [facility]* Diagnosis Type 2 diabetes mellitus with other specified complication, unspecified whether yeast pusher insulin use ([facility]) documented in this encounter [facility]* Diagnosis Chronic GERD Primary hypertension ([facility]/HCC) Unspecified essential hypertension documented in this encounter [facility]* Diagnosis Primary hypertension ([facility]) Unspecified essential hypertension documented in this encounter [facility]* Diagnosis Left shoulder pain, unspecified chronicity- Primary documented in this encounter [facility]* Diagnosis Environmental and seasonal allergies documented in this encounter [facility]* Diagnosis Type 2 diabetes mellitus with complication ([facility]/HCC)- Primary Primary hypertension ([facility]) Unspecified essential hypertension Stage 3a chronic kidney disease (HCC) ([facility]) CPAP (continuous positive airway pressure) dependence Dependence on other enabling machine White coat syndrome with diagnosis of hypertension (CMS/HCC) documented in this encounter [facility]* [...] complication (HCC) Stage 3a chronic kidney disease (CMS-HCC) Primary hypertension Unspecified essential hypertension documented in this encounter [facility]* Diagnosis Type 2 diabetes mellitus with complication (HCC)- Primary documented in this encounter [facility]* Diagnosis Type 2 diabetes mellitus with complication (HCC) documented in this encounter [facility]* Diagnosis Primary hypertension Unspecified essential hypertension documented in this encounter [facility]* Diagnosis Type 2 diabetes mellitus without complication, without long-term current use of insulin (HCC) documented in this encounter [facility]* Diagnosis Type 2 diabetes mellitus treated with insulin (HCC)- Primary documented in this encounter [facility] Assessments Diagnosis Arthritis of right shoulder region Unspecified arthropathy, shoulder region Diagnosis Impingement syndrome of right shoulder Other affections of shoulder region, not elsewhere classified Diagnosis Pre-op chest exam Pre-operative respiratory examination Diagnosis Rotator cuff syndrome of right shoulder- Primary Disorders of bursae and tendons in shoulder region, unspecified Advance Directives TypeDate RecordedPatient RepresentativeExplanationACP-Advance DirectiveACP-Power of AttorneyCode StatusDate ActivatedDate InactivatedCommentsFull Code11/30/2016 6:33 AM11/30/2016 11:59 AMTypeDate RecordedPatient RepresentativeExplanationACP- Advance DirectiveACP-Power of AttorneyCode StatusDate ActivatedDate Inactivated CommentsFull Code11/30/2016 6:33 AM11/30/2016 11:59 AMCode StatusDate Activated Date InactivatedCommentsFull Code05/09/2020 2:39 PMFull Code05/09/2020 10:31 AM 05/09/2020 2:39 PMFull Code11/30/2016 6:33 AM11/30/2016 11:59 AMCode StatusDate ActivatedDate InactivatedCommentsFull Code05/09/2020 2:39 05/09/2020 6:46 PMCode StatusDate ActivatedDate InactivatedCommentsFull Code05/09/2020 2:39 05/09/2020 6:46 PMFull Code05/09/2020 10:31 AM05/09/2020 2:39 PMFull Code11/30/2016 6:33 AM 11/30/2016 11:59 AMTypeDate RecordedPatient RepresentativeExplanationAdvance Directives and Living WillPower of AttorneyNameReAmerican Fork Hospitalealthcare Agent [facility] HealthCommunicationS[facility] Decision Maker* TypeDate RecordedPatient RepresentativeExplanationAdvance Directives and Living [id number]_OWUDurxWowz RecordedPatient RepresentativeExplanation Advance Directives and Living Will_DNR History of Present Illness * Danay Can, PT - 03/19/2020 8:30 AM EST [facility] Evaluation Date: 03/19/2020 Patient: [...] 45deg of IR to improve dressing kenrick. public works inspector goals Time Frame for public works inspector goals : 15 visits(POC Exp 04/30/19) [facility] goal 1: Pt to score >51/80 on UEFS to improve ADL kenrick [facility]DC goal 2: Pt to have ER of 55deg to improve upper body dressing. public works inspector goal 3: Pt to have 4/5 Horiz ABD strength to improve pt posture. [facility]DC goal 4: Pt to have 4/5 ER strength without pain to improve ADL kenrick. Patient's Goal: Patient goals : Relieve his shoulder pain so he can complete ADLs and hobbies Timed Code Treatment Minutes: 0 Minutes Total Treatment Time: 45 Time In: 35 Time Out: 919 Danay Can, PT Date: 03/19/2020 documented in this encounter* Rosalino Singh PTA - 03/21/2020 10:30 AM EST [facility] Daily Note Date: 03/21/2020 [...] 45deg of IR to improve dressing kenrick. Jail Goals - Time Frame for public works inspector goals : 15 visits(POC Exp 04/30/19) public works inspector goal 1: Pt to score >51/80 on UEFS to improve ADL kenrick [facility]DC goal 2: Pt to have ER of 55deg to improve upper body dressing. public works inspector goal 3: Pt to have 4/5 Horiz ABD strength to improve pt posture. [facility]DC goal 4: Pt to have 4/5 ER strength without pain to improve ADL kenrick. Post Treatment Pain: 2/10 Time In: 1030 Time Out : 1110 Timed Code Treatment Minutes: 40 Minutes Total Treatment Time: 40 Minutes Rosalino Singh PTA Date: 03/21/2020 documented in this encounter* Danay Can, PT - 03/26/2020 10:15 AM EST [facility] Daily Note Date: 03/26/2020 [...] 45deg of IR to improve dressing kenrick. Sheriff Goals - Time Frame for FDC goals : 15 visits(POC Exp 04/30/19) [facility]DC goal 1: Pt to score >51/80 on UEFS to improve ADL kenrick [facility]DC goal 2: Pt to have ER of 55deg to improve upper body dressing. public works inspector goal 3: Pt to have 4/5 Horiz ABD strength to improve pt posture. public works inspector goal 4: Pt to have 4/5 ER strength without pain to improve ADL kenrick. Post Treatment Pain: 04/14 Time In: 1019 Time Out: 1059 Timed Code Treatment Minutes: 40 Minutes Total Treatment Time: 40 Minutes Danay Can PT Date: 03/26/2020 documented in this encounter* Jessica Albarado, PT - 03/27/2020 2:30 PM EST [facility] Daily Note Date: 03/27/2020 [...] 45deg of IR to improve dressing kenrick. Jail Goals - Time Frame for public works inspector goals : 15 visits(POC Exp 04/30/19) public works inspector goal 1: Pt to score >51/80 on UEFS to improve ADL kenrick [facility] goal 2: Pt to have ER of 55deg to improve upper body dressing. [facility]DC goal 3: Pt to have 4/5 Horiz ABD strength to improve pt posture. [facility]DC goal 4: Pt to have 4/5 ER strength without pain to improve ADL kenrick. Post Treatment Pain: 2/10 Time In: 1440 Time Out : 1525 Timed Code Treatment Minutes: 40 Minutes Total Treatment Time: 40 Minutes JESSICA ALBARADO PT Date: 03/27/2020 documented in this encounter* Rosalino Singh, BUNCH TRIMMER MOLD - 04/09/2020 10:30 AM EST [facility] Daily Note Date: 04/09/2020 [...] IR to improve dressing kenrick. - [facility] Sheriff Goals - Time Frame for FDC goals : 15 visits(POC Exp 04/30/19) FDC goal 1: Pt to score >51/80 on UEFS to improve ADL kenrick public works inspector goal 2: Pt to have ER of 55deg to improve upper body dressing. - MET [facility]DC goal 3: Pt to have 4/5 Horiz ABD strength to improve pt posture. public works inspector goal 4: Pt to have 4/5 ER strength without pain to improve ADL kenrick. Post Treatment Pain: 2-3/10 Time In: 1030 Time Out : 1115 Timed Code Treatment Minutes: 45 Minutes Total Treatment Time: 45 Minutes Rosalino SinghKULWANT Date: 04/09/2020 documented in this encounter* Danay Can, PT - 04/11/2020 10:30 AM EST [facility] Daily Note Date: 04/11/2020 [...] IR to improve dressing kenrick. - MET Sheriff Goals - Time Frame for public works inspector goals : 15 visits(POC Exp 04/30/19) [facility]DC goal 1: Pt to score >51/80 on UEFS to improve ADL kenrick public works inspector goal 2: Pt to have ER of 55deg to improve upper body dressing. - MET FDC goal 3: Pt to have 4/5 Horiz ABD strength to improve pt posture. public works inspector goal 4: Pt to have 4/5 ER strength without pain to improve ADL kenrick. Post Treatment Pain: 05/15 Time In: 1030 Time Out : 1113 Timed Code Treatment Minutes: 43 Minutes Total Treatment Time: 43 Minutes Danay Can, PT Date: 04/11/2020 documented in this encounter* Benitez Bobo - 04/15/2020 10:30 AM EST [facility] Progress Report Date: 04/15/2020 [...] IR to improve dressing kenrick. - MET [facility]DC goals Time Frame for public works inspector goals : 15 visits(POC Exp 04/30/19) public works inspector goal 1: Pt to score >51/80 on UEFS to improve ADL kenrick public works inspector goal 2: Pt to have ER of 55deg to improve upper body dressing. - MET [facility] goal 3: Pt to have 4/5 Horiz ABD strength to improve pt posture. public works inspector goal 4: Pt to have 4/5 ER strength without pain to improve ADL kenrick. Benitez Bobo, SPTA/Directly Supervised By:Danay Can, PT Date: 04/15/2020 * Benitez Bobo - 04/15/2020 10:30 AM EST [facility] Daily Note Date: 04/15/2020 [...] IR to improve dressing kenrick. - MET Sheriff Goals - Time Frame for FDC goals : 15 visits(POC Exp 04/30/19) public works inspector goal 1: Pt to score >51/80 on UEFS to improve ADL kenrick [facility]DC goal 2: Pt to have ER of 55deg to improve upper body dressing. - MET FDC goal 3: Pt to have 4/5 Horiz ABD strength to improve pt posture. public works inspector goal 4: Pt to have 4/5 ER [...] Worthington, PT - 05/29/2020 11:00 AM EST [facility] Evaluation Date: 05/29/2020 Patient: [...] increase PROM R shld flexion 145 degrees FDC goals Time Frame for FDC goals : 18 visits [facility]DC goal 1: Pt to have improved functional activitities with UEFS score >50/80 public works inspector goal 2: Pt to demonstrate 135deg AROM shoulder flexion to improve ability to reach into cupboards public works inspector goal 3: Pt to demonstrate 4/5 shoulder [...] Worthington, PT - 06/05/2020 10:30 AM EST [facility] Daily Note Date: 06/05/2020 [...] 4 Pre-Treatment Pain: 07/13 Assessment Assessment: Pain 10 ight shld. Main c/o difficulty sleeping due [...] increase PROM R shld flexion 145 degrees Jail Goals - Time Frame for FDC goals : 18 visits public works inspector goal 1: Pt to have improved functional activitities with UEFS score >50/80 public works inspector goal 2: Pt to demonstrate 135deg AROM shoulder flexion to improve ability to reach into cupboards FDC goal 3: Pt to demonstrate 4/5 shoulder horizontal abd strength to improve ADLs and posture. Post Treatment Pain: 05/15 Time In: 10:30 Time Out : 11:00 Timed Code Treatment Minutes: 30 Minutes Total Treatment Time: 30 Minutes Quynh Worthington, PT Date: 06/05/2020 documented in this encounter* Quynh Worthington, PT - 06/07/2020 11:15 AM EST [facility] Daily Note Date: 06/07/2020 [...] of Visits to Date: 5 Pre-Treatment Pain: 210 Assessment Assessment: Pain 2/10 right shld. Patient [...] increase PROM R shld flexion 145 degrees-Met Jail Goals - Time Frame for FDC goals : 18 visits public works inspector goal 1: Pt to have improved functional activitities with UEFS score >50/80 public works inspector goal 2: Pt to demonstrate 135deg AROM shoulder flexion to improve ability to reach into cupboards public works inspector goal 3: Pt to demonstrate 4/5 shoulder horizontal abd strength to improve ADLs and posture. Post Treatment Pain: 05/15 Time In: 11:15 Time Out : 11:45 Timed Code Treatment Minutes: 30 Minutes Total Treatment Time: 30 Minutes Quynh Worthington, PT Date: 06/07/2020 documented in this encounter* Nathalie Burnham - 06/10/2020 10:30 AM EST Images from the original note were not included. [facility] Daily Note Date: 06/10/2020 [...] Show: 0 Canceled Appointment: 0 Pre-Treatment Pain: 210 Assessment Assessment: Pt reports he is having [...] increase PROM R shld flexion 145 degrees-Met Sheriff Goals - Time Frame for public works inspector goals : 18 visits public works inspector goal 1: Pt to have improved functional activitities with UEFS score >50/80 [facility]DC goal 2: Pt to demonstrate 135deg AROM shoulder flexion to improve ability to reach into cupboards FDC goal 3: Pt to demonstrate 4/5 shoulder horizontal abd strength to improve ADLs and posture. Post Treatment Pain: 05/15 Time In: 1030 Time Out : 1105 Timed Code Treatment Minutes: 35 Minutes Total Treatment Time: 35 Minutes Nathalie Burnham BUNCH TRIMMER MOLD Date: 06/10/2020 documented in this encounter* Nathalie Burnham - 06/14/2020 11:15 AM EST Images from the original note were not included. [facility] Daily Note Date: 06/14/2020 [...] increase PROM R shld flexion 145 degrees-Met Jail Goals - Time Frame for FDC goals : 18 visits public works inspector goal 1: Pt to have improved functional activitities with UEFS score >50/80 [facility]DC goal 2: Pt to demonstrate 135deg AROM shoulder flexion to improve ability to reach into cupboards FDC goal 3: Pt to demonstrate 4/5 shoulder horizontal abd strength to improve ADLs and posture. Post Treatment Pain: 0/10 Time In: 1115 Time Out : 1155 Timed Code Treatment Minutes: 40 Minutes Total Treatment Time: 40 Minutes Nathalie Burnham BUNCH TRIMMER MOLD Date: 06/14/2020 documented in this encounter* Quynh Worthington, PT - 06/19/2020 1:45 PM EDT Images from the original note were not included. [facility] Daily Note Date: 06/19/2020 [...] increase PROM R shld flexion 145 degrees-Met Jail Goals - Time Frame for public works inspector goals : 18 visits [facility] goal 1: Pt to have improved functional activitities with UEFS score >50/80 public works inspector goal 2: Pt to demonstrate 135deg AROM shoulder flexion to improve ability to reach into cupboards-Met public works inspector goal 3: Pt to demonstrate 4/5 shoulder horizontal abd strength to improve ADLs and posture. Post Treatment Pain: 05/15 Time In: 13:45 Time Out : 14:15 Timed Code Treatment Minutes: 30 Minutes Total Treatment Time: 30 Minutes Quynh Worthington PT Date: 06/19/2020 documented in this encounter* Alisia Sapp - 06/21/2020 11:15 AM EDT Images from the original note were not included. [facility] Daily Note Date: 06/21/2020 [...] increase PROM R shld flexion 145 degrees-Met Sheriff Goals - Time Frame for FDC goals : 18 visits public works inspector goal 1: Pt to have improved functional activitities with UEFS score >50/80 public works inspector goal 2: Pt to demonstrate 135deg AROM shoulder flexion to improve ability to reach into cupboards-Met public works inspector goal 3: Pt to demonstrate 4/5 shoulder horizontal abd strength to improve ADLs and posture. Post Treatment Pain: 04/14 Time In: 1115 Time Out : 1154 Timed Code Treatment Minutes: 39 Minutes Total Treatment Time: 39 Minutes Alisia Sapp PTA Date: 06/21/2020 documented in this encounter* Alisia Sapp - 06/24/2020 1:45 PM EDT Images from the original note were not included. [facility] Daily Note Date: 06/24/2020 [...] increase PROM R shld flexion 145 degrees-Met Sheriff Goals - Time Frame for public works inspector goals : 18 visits public works inspector goal 1: Pt to have improved functional activitities with UEFS score >50/80 [facility]DC goal 2: Pt to demonstrate 135deg AROM shoulder flexion to improve ability to reach into cupboards-Met public works inspector goal 3: Pt to demonstrate 4/5 shoulder horizontal abd strength to improve ADLs and posture. Post Treatment Pain: 1-2 Time In: 1341 Time Out : 1422 Timed Code Treatment Minutes: 43 Minutes Total Treatment Time: 43 Minutes Alisia Sapp,BUNCH TRIMMER MOLD Date: 06/24/2020 documented in this encounter* Quynh Worthington, PT - 06/26/2020 11:15 AM EDT Images from the original note were not included. [facility] Progress Report Date: 06/26/2020 [...] increase PROM R shld flexion 145 degrees-Met public works inspector goals Time Frame for FDC goals : 18 visits public works inspector goal 1: Pt to have improved functional activitities with UEFS score >50/80 [facility]DC goal 2: Pt to demonstrate 135deg AROM shoulder flexion to improve ability to reach into cupboards-Met [facility]DC goal 3: Pt to demonstrate 4/5 shoulder horizontal abd strength to improve ADLs and posture. Nathalie Burnham BUNCH TRIMMER MOLD Date: 06/26/2020 * Nathalie Burnham - 06/26/2020 11:15 AM EDT Images from the original note were not included. [facility] Daily Note Date: 06/26/2020 [...] increase PROM R shld flexion 145 degrees-Met Jail Goals - Time Frame for FDC goals : 18 visits [facility] goal 1: Pt to have improved functional activitities with UEFS score >50/80 public works inspector goal 2: Pt to demonstrate 135deg AROM shoulder flexion to improve ability to reach into cupboards-Met [facility]DC goal 3: Pt to demonstrate 4/5 shoulder horizontal abd strength to improve ADLs and posture. Post Treatment Pain: 05/15 Time In: 1112 Time Out : 1150 Timed Code Treatment Minutes: 38 Minutes Total Treatment Time: 38 Minutes Nathalie Burnham BUNCH TRIMMER MOLD Date: 06/26/2020 documented in this encounter* Alisia Sapp - 07/01/2020 11:15 AM EDT Images from the original note were not included. [facility] Daily Note Date: 07/01/2020 [...] increase PROM R shld flexion 145 degrees-Met Sheriff Goals - Time Frame for public works inspector goals : 18 visits public works inspector goal 1: Pt to have improved functional activitities with UEFS score >50/80 public works inspector goal 2: Pt to demonstrate 135deg AROM shoulder flexion to improve ability to reach into cupboards-Met public works inspector goal 3: Pt to demonstrate 4/5 shoulder horizontal abd strength to improve ADLs and posture. Post Treatment Pain: 0/10 Time In: 1114 Time Out : 1153 Timed Code Treatment Minutes: 39 Minutes Total Treatment Time: 39 Minutes Alisia Sapp ,BUNCH TRIMMER MOLD Date: 07/01/2020 documented in this encounter* Quynh Worthington, PT - 07/03/2020 11:15 AM EDT Images from the original note were not included. [facility] Daily Note Date: 07/03/2020 [...] up; but R shld pain staying at 05/15. Completed therex and manual therapy per Doc [...] increase PROM R shld flexion 145 degrees-Met Sheriff Goals - Time Frame for public works inspector goals : 18 visits public works inspector goal 1: Pt to have improved functional activitities with UEFS score >50/80 FDC goal 2: Pt to demonstrate 135deg AROM shoulder flexion to improve ability to reach into cupboards-Met public works inspector goal 3: Pt to demonstrate 4/5 shoulder horizontal abd strength to improve ADLs and posture.-Met Post Treatment Pain: 05/15 Time In: 11:15 Time Out : 11:55 Timed Code Treatment Minutes: 40 Minutes Total Treatment Time: 40 Minutes Quynh Worthington, PT Date: 07/03/2020 documented in this encounter* Alisia Sapp - 07/15/2020 11:15 AM EDT Images from the original note were not included. [facility] Daily Note Date: 07/15/2020 [...] increase PROM R shld flexion 145 degrees-Met Jail Goals - Time Frame for FDC goals : 18 visits FDC goal 1: Pt to have improved functional activitities with UEFS score >50/80-MET public works inspector goal 2: Pt to demonstrate 135deg AROM shoulder flexion to improve ability to reach into cupboards-Met FDC goal 3: Pt to demonstrate 4/5 shoulder horizontal abd strength to improve ADLs and posture.-Met Post Treatment Pain: 0/10 Time In: 1115 Time Out : 1154 Timed Code Treatment Minutes: 39 Minutes Total Treatment Time: 39 Minutes Alisia Sapp PTA Date: 07/15/2020 documented in this encounter Reason for Referral StatusReasonSpecialtyDiagnoses / ProceduresReferred By ContactReferred To ContactClosedRadiology Diagnoses Impingement syndrome of right shoulder Procedures MRI SHOULDER RIGHT WO CONTRAST Pretty Moreland, DO [address] [place] [address] [facility] [address] [place] [address] SpecialtyDiagnoses / ProceduresReferred By ContactReferred To ContactCardiology Diagnoses Pre-op testing Procedures EKG 12 Lead Back, [place] [address] Referral IDStatusReasonStart DateExpiration DateVisits RequestedVisits [id number]/16/20231/ Discharge Instructions * Instructions* Amanda Gillis RN [...] meditation. You may begin using Tylenol or hsvl-[id number] Ibuprofen or Motrin for pain should you [...] from the original note were not included. [facility] Discharge Summary Patient: Tony Starks : 1945 Referring Practitioner: Dr. Pretty Moreland Diagnosis: R shoulder scope, LHB debridment, SAD, RCR Date Treatment Initiated: 05/29/20 Date of Last Treatment: 07/15/20 PT Visit Information Onset Date: 05/09/20 PT Insurance Information: [employer] Total # of Visits Approved: 18 Total [...] for Visit (unrecogniz ed section and content) StatusReasonSpecialtyDiagnoses / ProceduresReferred By ContactReferred To ContactClosedRadiology Diagnoses Impingement syndrome of right shoulder Procedures MRI SHOULDER RIGHT WO CONTRAST Pretty Moreland, DO [address] [place] [address] [facility] [address] [place] [address] StatusReasonSpecialtyDiagnoses / ProceduresReferred By ContactReferred To Contact Diagnoses Unspecified rotator cuff tear or rupture of right shoulder, not specified as traumatic RIGHT SHOULDER ROTATOR CUFF TEAR....BICEP TENDONITIS Procedures [place] SHLDR ARTHROSCOP,SURG,W/ROTAT CUFF REPR RIGHT SHOULDER ARTHROSCOPY PROBABLE ROTATOR CUFF REPAIR... LONG HEAD BICEPS TENODESIS Pretty Moreland, DO [address] [place] [address] [facility] [employer] ReasonCommentsFollow-upReasonOnset DateCommentsrefill nfqcuopnauai90/07/2024 ReasonCommentsMed RefillReasonCommentsFollow-upWants to discuss blood sugars. Noticed since off Jardiance his blood sugars have been ranging [phone] DateCommentsMed [id number] GyeqMizinskymfgvxnc98/09/2024Reason CommentsSkin CheckReasonOnset DateCommentsFYI on left cshizmdz06/10/2025Reason CommentsMedicare Annual Wellness Visit SubsequentReasonCommentsPainReasonOnset DateCommentsmedication rafvjo6006/05/2024ReasonOnset DateCommentsMed Refill 07/10/2024ReasonCommentsPainReasonOnset DateCommentsMed Sopqyc6608/30/2024Reason Comments4 months agoReasonOnset DateCommentsMed Vjvqod8209/19/2024ReasonOnset Date Commentsrefill Rslmssyrab21/02/2025ReasonOnset DateCommentsMed Nrzemj3812/18/2024 ReasonOnset DateCommentsrefill tfieffqq33/13/2025ReasonOnset DateCommentsMed Pzmjaw3601/26/2025 Ordered Prescriptions (unrec ognized section and content) PrescriptionSigDispensedRefillsStart DateEnd docusate sodium (COLACE) 100 MG capsule Take 1 capsule by mouth 2 times daily 40 capsule oxyCODONE-acetaminophen (PERCOCET) 5-325 MG per tablet Indications:Rotator cuff syndrome of right shoulderTake 1-2 tablets by mouth every 6 hours as needed for Pain for up to 3 days. 40 tablet /10/2020 Care Teams (unrecognized sec tion and content) Team MemberRelationshipSpecialtyStart DateEnd Daniel Pop DO [address] [place], [place] [id number] PCP - GeneralFamily Medicine11/24/16Team MemberRelationshipSpecialtyStart End Daniel Pop DO [address] [place] [id number] PCP - GeneralFamily Medicine10/14/22 Laya Plata, REFUELING RAMP ATTENDANT [address] [place] [address] PCP - ACO Reach01/04/24 Laya Plata, REFUELING RAMP ATTENDANT [address] [place], [place] [id number] Nurse PractitionerFavaly Medicine10/14/22Team MemberRelationshipSpecialtyStart End Daniel Pop DO [address] [place], [place] [id number] PCP - GeneralFamily Medicine10/14/22 Laya Plata, REFUELING RAMP ATTENDANT [address] [place] [address] PCP - ACO Reach01/04/24 Laya Plata, REFUELING RAMP ATTENDANT [address] [place] [address] Nurse PractitionerFamily Medicine10/14/22Team MemberRelationshipSpecialtyStart DateEnd Daniel Pop, [address] [place] [address] PCP - GeneralFamily Medicine10/14/22 Laya Plata, REFUELING RAMP ATTENDANT [address] [place] [address] PCP - ACO Reach01/04/24 Laya Plata, REFUELING RAMP ATTENDANT [address] [place] [address] Nurse PractitionerFamily Medicine10/14/22Team MemberRelationshipSpecialtyStart DateEnd Date Daniel Pop, [address] [place] [address] PCP - GeneralFamily Medicine10/14/22 Laya Plata, REFUELING RAMP ATTENDANT [address] [place] [address] PCP - ACO Reach01/04/24 Laya Plata, REFUELING RAMP ATTENDANT [address] [place] [address] Nurse PractitionerFamily Medicine10/14/22Team MemberRelationshipSpecialtyStart DateEnd Date Daniel Pop, [address] [place] [address] PCP - GeneralFamily Medicine10/14/22 Laya Plata, REFUELING RAMP ATTENDANT [address] [place] [address] PCP - ACO Reach01/04/24 Laya Plata, REFUELING RAMP ATTENDANT [address] [place] [address] Nurse PractitionerFamily Medicine10/14/22Team MemberRelationshipSpecialtyStart DateEnd Date Daniel Pop, DO [address] [place] [address] PCP - GeneralFamily Medicine10/14/22 Daniel Pop, DO [address] [place] [address] PCP - ACO Reach06/04/23 Laya Plata, REFUELING RAMP ATTENDANT [address] [place] [address] Nurse PractitionerKeokuk County Health Centerly Medicine10/14/22Team MemberRelationshipSpecialtyStart DateEnd Date Daniel Pop, DO [address] [place] [address] PCP - GeneralFamily Medicine10/14/22 Daniel Pop, [address] [place] [address] PCP - ACO Reach06/04/23 Laya Plata, REFUELING RAMP ATTENDANT [address] [place] [address] Nurse PractitionerFavaly Medicine10/14/22Team MemberRelationshipSpecialtyStart DateEnd Date Daniel Pop, [address] [place] [address] PCP - GeneralFamily Medicine10/14/22 Daniel Pop DO [address] [place] [address] PCP - ACO Reach06/04/23 Laya Plata, REFUELING RAMP ATTENDANT [address] [place] [address] [facility] Pract[facility]Tu[facility] Medicine10/14/22Team MemberRelationshipSpecialtyStart DateEnd Date Daniel Pop, [address] [place] [address] PCP - GeneralFamily Medicine10/14/22 Daniel Pop, [address] [place] [address] PCP - ACO Reach06/04/23 Laya Plata, REFUELING RAMP ATTENDANT [address] [place] [address] Nurse PractitionerNorthridge [facility] Center10/14/22Team MemberRelationshipSpecialtyStart DateEnd Date Daniel Pop, [address] [place] [address] PCP - GeneralFamily Medicine10/14/22 Daniel Pop DO [address] [place] [address] PCP - ACO Reach06/04/23 Laya Plata, REFUELING RAMP ATTENDANT [address] [place] [address] Nurse PractitionerFamily Medicine10/14/22Team MemberRelationshipSpecialtyStart DateEnd Date Daniel Pop, [address] [place] [address] PCP - GeneralFamily Medicine10/14/22 Laya Plata, REFUELING RAMP ATTENDANT [address] [place] [address] PCP - ACO Reach01/04/24 Laya Plata, REFUELING RAMP ATTENDANT [address] [place] [address] Nurse PractitionerKeokuk County Health Centerly Medicine10/14/22Team MemberRelationshipSpecialtyStart DateEnd Date Daniel Pop, [address] [place] [address] PCP - GeneralFamily Medicine10/14/22 Laya Plata, REFUELING RAMP ATTENDANT [address] [place] [address] PCP - ACO Reach01/04/24 Laya Plata, REFUELING RAMP ATTENDANT [address] [place] [address] Nurse PractitionerFamily Medicine10/14/22Team MemberRelationshipSpecialtyStart DateEnd Date Daniel Pop, [address] [place] [address] PCP - GeneralFamily Medicine10/14/22 Laya Plata, REFUELING RAMP ATTENDANT [address] [place] [address] PCP - ACO Reach01/04/24 Laya Plata L, REFUELING RAMP ATTENDANT [address] [place] [address] Nurse PractitionerKeokuk County Health Centerly Medicine10/14/22Team MemberRelationshipSpecialtyStart DateEnd Date Daniel Pop, DO [address] [place] [address] PCP - GeneralKeokuk County Health Centerly Medicine10/14/22 Laya Plata L, REFUELING RAMP ATTENDANT [address] [place] [address] PCP - ACO Reach01/04/24 Laya Plata, REFUELING RAMP ATTENDANT [address] [place] [address] Nurse PractitionerNorthridge Medical Center10/14/22Te MemberRelationshipSpecialtyStart DateEnd Date Daniel Pop, DO [address] [place] [address] PCP - GeneralTu[facility] Medicine10/14/22 Laya Plata, REFUELING RAMP ATTENDANT [address] [place] [address] PCP - ACO Reach01/04/24 Laya Plata L, REFUELING RAMP ATTENDANT [address] [place] [address] Nurse PractitionerTu[facility] Medical Center Medicine10/14/22Te MemberRelationshipSpecialtyStart DateEnd Date Daniel Pop, DO [address] [place] [address] PCP - GeneralKeokuk County Health Centerly Medicine10/14/22 Laya Plata L, REFUELING RAMP ATTENDANT [address] [place] [address] PCP - ACO Reach01/04/24 Laya Plata L, REFUELING RAMP ATTENDANT [address] [place] [address] Nurse PractitionerNorthridge Medical Center10/14/22Team MemberRelationshipSpecialtyStart DateEnd Date Daniel Pop, DO [address] [place] [address] PCP - [facility]10/14/22 Laya Plata, REFUELING RAMP ATTENDANT [address] [place] [address] PCP - [facility] Reach01/04/24 Laya Plata, REFUELING RAMP ATTENDANT [address] [place] [address] Nurse PractitionerNorthridge Medical Center10/14/22Te MemberRelationshipSpecialtyStart DateEnd Date Daniel Pop, DO [address] [place] [address] PCP - [facility]10/14/22 Laya Plata L, REFUELING RAMP ATTENDANT [address] [place] [address] PCP - ACO [facility]01/04/24 Laya Plata L, REFUELING RAMP ATTENDANT [address] [place] [address] Nurse PractitionerNorthridge Medical Center10/14/22Team MemberRelationshipSpecialtyStart DateEnd Date Daniel Pop, [address] [place] [address] PCP - [facility]Tu[facility] Medicine10/14/22 Laya Plata, REFUELING RAMP ATTENDANT [address] [place] [address] PCP - [facility]CO Reach01/04/24 Laya Plata, REFUELING RAMP ATTENDANT [address] [place] [address] Nurse PractitionerNorthridge Medical Center10/14/22Te MemberRelationshipSpecialtyStart DateEnd Date Daniel Pop, [address] [place] [address] PCP - [facility]Tu[facility] Medicine10/14/22 Laya Plata, REFUELING RAMP ATTENDANT [address] [place] [address] PCP - O Reach01/04/24 Laya Plata, REFUELING RAMP ATTENDANT [address] [place] [address] Nurse PractitionerNorthridge Medical Center10/14/22Te MemberRelationshipSpecialtyStart DateEnd Date Daniel Pop, DO [address] [place] [address] PCP - [facility]Tu[facility] Medicine10/14/22 Laya Plata, REFUELING RAMP ATTENDANT [address] [place] [address] PCP - [facility] Reach01/04/24 Laya Plata, REFUELING RAMP ATTENDANT [address] [place] [address] Nurse PractitionerNorthridge Medical Center10/14/22Te MemberRelationshipSpecialtyStart DateEnd Date Daniel Pop, [address] [place] [id number] PCP - [facility]10/14/22 Laya Plata, REFUELING RAMP ATTENDANT [address] [place] [id number] [facility] Reach01/04/24 Laya Plata, REFUELING RAMP ATTENDANT [address] [place] [phone] Nurse PractitionerNorthridge Medical Center10/14/22Te MemberRelationshipSpecialtyStart DateEnd Date Daniel Pop, [address] [place] [address] PCP [facility]10/14/22 Laya Plata, REFUELING RAMP ATTENDANT [address] [place] [id number] [facility]01/04/24 Laya Plata, REFUELING RAMP ATTENDANT [address] [place] [id number] Nurse PractitionerTu[facility] Medical Center Medicine10/14/22 (unrecognized sect ion and content) No Status Records FoundNo Status Records FoundNo Status Records FoundNo Status Records Found INFORMATION SOURCE (unrecogn ized section and content) DATE CREATED AUTHOR 04/29/2022 [facility] DATE CREATED AUTHOR AUTHOR'S ORGANIZ ATION 06/19/2023 [facility] DATE CREATED AUTHOR AUTHOR'S ORGANIZ ATION 01/08/2025 [facility] DATE CREATED AUTHOR AUTHOR'S ITZ ATION 01/27/2025 [facility] FOR RECORDS PERTAINING TO PATIENTS WHO ARE [...] BE BASED ON THE PRIMARY CLINICAL RECORDS. [employer] provides no warranty or guarantee of the accuracy or completeness of information in this document.
--- NOTE | 2025-01-31 10:05 | PM.CN ---
Consult Note: HPI Data of Consult Patient: known to practice within the last 3 years Consult date: 01/31/25 Requesting Physician: Fariha Meehan NP Primary Care Provider: Laya Thompson RN, COACH CLEANER Consult Narrative Reason for consult: left shoulder pain Narrative: Tony Starks an 79 year old male presents for evaluation and management of chronic left shoulder pain. currently following with orthopedic surgery for evaluation of left shoulder pain, they have recommended he trial the suprascapular nerve block in consideration of RFA over surgical intervention. pain today 2/10 dull increasing with ROM and activity, notes moderate to severe pain up to 8/10 with lifting and use of left arm. pt reports he has failed to benefit from PT, heat, ice, tylenol, and NSAIDs. utilizing tylenol #3 BID PRN for moderate to severe pain with moderate relief without side effects. underwent left suprascapular and axillary nerve block with at least 80% improvement while anesthetized, preop pain up to 8/10 post op pain 0/10 for at least 2 hours cc:: CC: Fariha Meehan NP Review of Systems ROS Status of ROS 10 or more systems reviewed and unremarkable except as noted in history and below Musculoskeletal Reports: joint pain PFSH PFSH Medical History (Updated 03/01/24 @ 10:40 by Shannon Pérez) Osteoarthritis ?M19.90 - Unspecified osteoarthritis, unspecified site (ICD-10) Low back pain ?M54.50 - Low back pain, unspecified (ICD-10) Hearing deficit ?H91.90 - Unspecified hearing loss, unspecified ear (ICD-10) High cholesterol ?E78.00 - Pure hypercholesterolemia, unspecified (ICD-10) Hypertension ?I10 - Essential (primary) hypertension (ICD-10) Diabetes 1.5, managed as type 2 ?E13.9 - Other specified diabetes mellitus without complications (ICD-10) Sleep apnea ?G47.30 - Sleep apnea, unspecified (ICD-10) Surgical History (Updated 03/01/24 @ 10:40 by Shannon Pérez) History of uvulopalatopharyngoplasty ?Z98.890 - Other specified postprocedural states (ICD-10) H/O arthroscopic knee surgery ?Z98.890 - Other specified postprocedural states (ICD-10) H/O nasal septoplasty ?Z98.890 - Other specified postprocedural states (ICD-10) Meds Home Medications and Allergies Home Medications ?Medication ?Instructions ?Recorded ?Confirmed ?Type acetaminophen 650 mg 650 mg PO Q12H PRN fever or pain 01/27/23 01/22/25 History tablet,extended release (8 Hour Pain Reliever) apple cider vinegar 600 mg capsule 600 mg PO TID 01/27/23 01/22/25 History aspirin 81 mg tablet,delayed 81 mg PO DAILY 01/27/23 01/22/25 History release (Adult Aspirin Regimen) atenolol 50 mg tablet 50 mg PO DAILY 01/27/23 01/22/25 History cholecalciferol (vitamin D3) 50 50 mcg PO DAILY 01/27/23 01/22/25 History mcg (2,000 unit) tablet (Vitamin D3) famotidine 20 mg tablet 20 mg PO BID 01/27/23 01/22/25 History fluticasone propionate 50 1 spray intranasal BID PRN allergy 01/27/23 01/22/25 History mcg/actuation nasal symptoms spray,suspension (24 Hour Allergy Relief) hydrochlorothiazide 25 mg tablet 25 mg PO DAILY 01/27/23 01/22/25 History insulin degludec 100 unit/mL (3 34 unit subcut DAILY 01/27/23 01/22/25 History mL) subcutaneous pen (Tresiba FlexTouch U-100 insulin) lisinopril 20 mg tablet 20 mg PO BID 01/27/23 01/22/25 History loratadine 10 mg capsule 10 mg PO DAILY 01/27/23 01/22/25 History melatonin 10 mg capsule 10 mg PO DAILY 01/27/23 01/22/25 History multivitamin (Daily Multi-Vitamin 1 tab PO DAILY 01/27/23 01/22/25 History tablet) omeprazole 20 mg capsule,delayed 20 mg PO DAILY 01/27/23 01/22/25 History release zinc 25 mg tablet 25 mg PO DAILY 01/27/23 01/22/25 History ascorbic acid (vitamin C) 500 mg mg PO 03/01/24 History capsule bexagliflozin 20 mg tablet 20 mg PO DAILY 03/01/24 01/22/25 History (Brenzavvy) diphenhydramine 25 1 tab PO QPM PRN pain 03/01/24 01/22/25 History mg-acetaminophen 500 mg tablet (Tylenol PM Extra Strength) sitagliptin phosphate 100 mg 100 mg PO DAILY 03/01/24 01/22/25 History tablet (Januvia) acetaminophen 300 mg-codeine 30 mg 1 tab PO BID PRN pain #60 tabs 01/11/25 01/22/25 Rx tablet atorvastatin 40 mg tablet mg 01/22/25 History glucosamine-chondroitin 250 mg-200 2 tab PO BID 01/22/25 01/22/25 History mg tablet Allergies Allergy/AdvReac Type Severity Reaction Status Date / Time No Known Drug Allergies Allergy Verified 01/22/25 10:40 Exam Constitutional Documenting provider has reviewed patient's vital signs: yes Common normals: no apparent distress, oriented x3, healthy appearing, alert and well nourished General appearance: cooperative HENMT Common normals: normocephalic, hearing grossly normal bilaterally and moist oral mucous membranes Head and scalp: normocephalic Eye Common normals: PERRL Pupil: PERRL Neck & C-Spine Common normals: full ROM General: normal visual inspection Other: no pain with rotation, flexion, extension. No pain with palpation. Denies numbness/tingling/weakness in bilateral arms or hands. No tenderness over left suprascapular or axillary nerve pattern. Chest Common normals: inspection of chest normal Respiratory Common normals: normal respiratory effort, no retractions and no use of accessory muscles Extremity Left upper extremity: shoulder joint (no edema. ROM mildly impaired. ) Other: pain over left suprascapular nerve and left AC joint. positive empty can, posterior lift off, and apleys scratch maneuver. strength 4/5 in LUE and 5/5 in RUE Neuro Common normals: oriented x3, CN's II-XII intact bilaterally, moves all extremities, no focal motor deficits, no sensory deficits noted and deep tendon reflexes 2+ bilaterally Sensorium/orientation: alert Motor exam: no movement abnormalities noted Psych Common normals: mental status grossly normal, thought process normal, cooperative, affect normal, speech normal and activity/motor behavior normal Speech: normal speech Thought process: normal thought process Assessment and Plan Assessment and Plan (1) Primary osteoarthritis, left shoulder: (2) Left shoulder pain: (3) Chronic use of opiate drug for therapeutic purpose: Assessment and Plan: I feel these medications are improving the patient's quality of life and allow them to tolerate activities of daily living as well as participate in recreational activity.? The patient does not report intolerable side effects. The patient is NOT opioid naive and non-pharmacologic and non-opioid treatment has failed to significantly relieve the patient's pain and improve functionality. The patient has a diagnosis that is related to a somatic or visceral pain etiology. ? ?? I reviewed with the patient the potential risks and side effects with the use of? opioid medications including but not limited to respiratory depression,? sedation, and even . I advised the patient to avoid the use of any other? sedation substances including alcohol, THC, and benzodiazepines while? taking opioid medications due to the risk of compounding side effects and? detrimental outcomes. within the last 12 months I have reviewed the BONDERITE OPERATOR, pain treatment agreement and urine drug screen.? ?? A drug screen was completed within the last year, and no aberrancies were noted regarding their use of controlled substances. The patient understands they are subject to the terms and conditions of the pain contract that they have signed. ? ?? I have checked an OARRS report on this patient today and there are no aberrancies noted in the prescribing history.? (4) Unspecified mononeuropathy of right lower limb: Plan The patient has had over 3 months of moderate to severe left shoulder pain with functional impairment and inadequate response to conservative care including NSAIDS (unless there are contraindication such as concurrent blood thinners), multiple oral or topical pain medications, and home exercise program/physical therapy.? Patient has completed >6 weeks of guided home exercise program and/or formal physical therapy program without relief of their symptoms.? I have reviewed the imaging of the left shoulder and no red flags were identified.? The imaging reveals radiographic findings consistent with OA The Oswestry Disability Index was completed, and the patient scored a 4%.? left suprascapular and axillary RFA under fluoroscopy for OA and left shoulder pain continue tylenol #3 BID PRN moderate to severe pain, risks vs benefits reviewed continue HEP as tolerated continue f/u with orthopedics as planned f/u 1 month after RFA
== END 2025-01-31 09:33 | disposition home or self-care (01) ==
PROVIDERS: PCP Nurse Practitioner; Visit Provider Nurse Practitioner
DX: M19.012 Primary osteoarthritis, left shoulder (principal); M25.512 Pain in left shoulder; Z79.891 Long term (current) use of opiate analgesic; G57.91 Unspecified mononeuropathy of right lower limb
CPT/HCPCS: G0463

== ENCOUNTER 2025-02-05 10:03 | Day surgery (SDC) | payer MEDICARE, OTHER, SELFPAY ==
--- OUTSIDE RECORDS SUMMARY | 2025-02-05 10:07 | XMS_ITS | Encounter Summary ---
Author Organization [facility] Address [address] [place] [address] Care Team Providers Care Car Knocker Name Role Phone Roseann, Colby Pearl DO Primary Care Provider [phone] Laya Thompson PLATE DEVELOPER Unavailable Laya Thompson PLATE DEVELOPER Unavailable Encounter Details DateTypeDepartmentCare Team (Latest Contact Info)Arovgozapoe26/20/2025bstract [facility] [address] [place] [address] Laya Thompson, PLATE DEVELOPER [address] [place] [address] Social History Tobacco UseTypesPacks/DayYears UsedDateSmoking Tobacco: FormerCigarettes0.515 02/06/1991 - 02/06/2006Smokeless Tobacco: Never Comments:Last smoked: more t brennan 10 years ago Alcohol UseStandard Drinks/WeekCommentsYes1 (1 standard drink = 0.6 oz pure alcohol)I drink a beer once a [id number] Health LiteracyAnswerDate RecordedHow often do you need [...] relatives?Once a week09/04/2024How often do you attend baptism or lutheran services?More than 4 times per year09/04/2024Do you belong to any clubs or organizations such as baptism groups, unions, fraternal or athletic groups, or [...] very hard 09/04/2024PHQ-2AnswerDate RecordedPatient Health Questionnaire-2 Score0 05/08/2024[facility] [place] of Occup[facility] - Occupational Stress QuestionnaireAnswerDate [...] you engage in exercise at this level?Patient ispafjlj64/02/2025Hunger Vital SignAnswerDate RecordedWithin the past 12 months, [...] steady place to sleep or slept in [facility] (including now)?No01/18/2023Housing Stability Vital SignAnswerDate RecordedIn the last 12 months, was there a time when you were not able to pay the mortgage or rent on time?Patient declined 09/04/2024In the past 12 months, how many times have you moved where you were living?t any time in the past 12 months, were you homeless or living in a long term (including now)?No09/04/2024Sex and Gender InformationValueDate RecordedSex Assigned at BirthNot on fileLegal HiePrkc1106/17/2022 6:52 PM EDT Gender IdentityNot on fileSexual OrientationNot on filedocumented as of this encounter Plan of Treatment DateTypeDepartmentCare Team (Latest Contact Info)Eougpbsgyjk62/24/2025 10:30 AM ESTOffice Visit [facility] [address] [place] [phone] Laya Thompson, PLATE DEVELOPER [address] [place] [address] 04/20/2025 11:00 AM ESTOffice Visit [facility] [address] [place] [address] Nicol Ballard, PA [address] [place] [address] documented as of this encounter Visit Diagnoses Not on filedocumented in this encounter Care Teams Team MemberRelationshipSpecialtyStart DateEnd Date Colby Whitfield, [address] [place], [place] [id number] PCP - GeneralFamily Medicine10/14/22 Laya Thompson, PLATE DEVELOPER [address] [place] [address] PCP - ACO Reach01/04/24 Laya Thompson, PLATE DEVELOPER [address] [place] [address] Nurse PractitionerFamily Medicine10/14/22documented as of this encounter
--- OUTSIDE RECORDS SUMMARY | 2025-02-05 10:07 | XMS_ITS | Encounter Summary ---
Author Organization [facility] Address [address] [place] [address] Care Team Providers Care Cotton Sampler Name Role Phone Colby Whitfield DO Primary Care Provider [phone] Laya Thompson VENEER JOINTER Unavailable Laya Thompson VENEER JOINTER Unavailable Reason for Visit * ReasonOnset DateCommentsMed Ifajeg5801/26/2025 Encounter Details DateTypeDepartmentCare Team (Latest Contact Info)Nvjswefvmkv11/24/2025Refill [facility] [address] [place] [address] Deidra Burnette MA Type 2 diabetes mellitus without complication, without long-term current use of insulin (HCC) Social History Tobacco UseTypesPacks/DayYears UsedDateSmoking Tobacco: FormerCigarettes0.515 02/06/1991 - 02/06/2006Smokeless Tobacco: Never Comments:Last smoked: more t brennan 10 years ago Alcohol UseStandard Drinks/WeekCommentsYes1 (1 standard drink = 0.6 oz pure alcohol)I drink a beer once a [id number] Health LiteracyAnswerDate RecordedHow often do you need [...] relatives?Once a week09/04/2024How often do you attend buddhism or shinto services?More than 4 times per year09/04/2024Do you belong to any clubs or organizations such as buddhism groups, unions, fraternal or athletic groups, or [...] RecordedPatient Health Questionnaire-2 Score0 05/08/2024[facility] [place] [facility] Health - Occupational Stress QuestionnaireAnswerDate [...] you engage in exercise at this level?Patient laxnwyqu41/02/2025Hunger Vital SignAnswerDate RecordedWithin the past 12 months, [...] steady [facility] sleep [facility] ([facility])?No01/18/2023Housing Stability Vital SignAnswerDate RecordedIn the last 12 months, was there a time when you were not able to pay the mortgage or rent on time?Patient declined 09/04/2024In the past 12 months, how many times have you moved where you were living?t any time in the past 12 months, were you homeless or living in a halfway (including now)?No09/04/2024Sex and Gender InformationValueDate RecordedSex Assigned at BirthNot on fileLegal LsgXakr2206/17/2022 6:52 PM EDT Gender IdentityNot on fileSexual [...] Plan of Treatment DateTypeDepartmentCare Team (Latest Contact Info)Klyvuwputxr65/24/2025 10:30 AM ESTOffice Visit [facility] [address] [facility] [phone] Laya Thompson, VENEER JOINTER [address] [place] [address] 04/20/2025 11:00 AM ESTOffice Visit [facility] [address] [facility] [phone] Nicol Ballard, PA [address] [place] [address] documented as of this encounter Visit Diagnoses Diagnosis Type 2 diabetes mellitus without complication, without long-term current use of insulin (HCC) documented in this encounter Care Teams Team MemberRelationshipSpecialtyStart DateEnd Date Colby Whitfield DO [address] [place] [address] PCP - GeneralFamily Medicine10/14/22 Laya Thompson, VENEER JOINTER [address] [place] [address] PCP - ACO Reach01/04/24 Laya Thompson, VENEER JOINTER [address] [place], [place] [id number] Nurse PractitionerFamily Medicine10/14/22documented as of this encounter
--- OUTSIDE RECORDS SUMMARY | 2025-02-05 10:07 | XMS_ITS | Encounter Summary ---
Author Organization [facility] Address [address] [place] [address] Care Team Providers Care Territory Sales Consultant Name Role Phone Roseann Colby Pearl DO Primary Care Provider [phone] Laya Thompson BATTERY LOADER Unavailable Laya Thompson BATTERY LOADER Unavailable Encounter Details DateTypeDepartmentCare Team (Latest Contact Info)Towljenxltr46/26/2025Telephone [facility] [address] [place] [address] Laya Thompson, BATTERY LOADER [address] [place] [address] Social History Tobacco UseTypesPacks/DayYears UsedDateSmoking Tobacco: FormerCigarettes0.515 02/06/1991 - 02/06/2006Smokeless Tobacco: Never Comments:Last smoked: more t brennan 10 years ago Alcohol UseStandard Drinks/WeekCommentsYes1 (1 standard drink = 0.6 oz pure alcohol)I drink a beer once a [id number] Health LiteracyAnswerDate RecordedHow often do you need [...] relatives?Once a week09/04/2024How often do you attend gnosticist or zoroastrianism services?More than 4 times per year09/04/2024Do you belong to any clubs or organizations such as gnosticist groups, unions, fraternal or athletic groups, or [...] very hard 09/04/2024PHQ-2AnswerDate RecordedPatient Health Questionnaire-2 Score0 05/08/2024[facility] [place] of Occupational Health - Occupational Stress QuestionnaireAnswerDate [...] you engage in exercise at this level?Patient bufbvair01/02/2025Hunger Vital SignAnswerDate RecordedWithin the past 12 months, [...] steady place to sleep or [facility] ([facility])?No01/18/2023Housing Stability Vital SignAnswerDate RecordedIn the last 12 months, was there a time when you were not able to pay the mortgage or rent on time?Patient declined 09/04/2024In the past 12 months, how many times have you moved where you were living?t any time in the past 12 months, were you homeless or living in a senior care (including now)?No09/04/2024Sex and Gender InformationValueDate RecordedSex Assigned at BirthNot on fileLegal NahHdpc1906/17/2022 6:52 PM EDT Gender IdentityNot on fileSexual OrientationNot on filedocumented as of this encounter Miscellaneous Notes * Telephone Encounter - Laya Thompson NP - 01/28/2025 9:17 PM EDT New rx for lancets sent per pts e request documented in this encounter Plan of Treatment DateTypeDepartmentCare Team (Latest Contact Info)Ilyrimuowll78/24/2025 10:30 AM ESTOffice Visit [facility] [address] [facility] [place] [phone] Laya Thompson NP [address] [place], [place] [id number] 04/20/2025 11:00 AM ESTOffice Visit [facility] [address] [facility] [place] [address] Nicol Ballard, PA [address] [place] [address] documented as of this encounter Visit Diagnoses Diagnosis Type 2 diabetes mellitus treated with insulin (HCC)- Primary documented in this encounter Care Teams Team MemberRelationshipSpecialtyStart DateEnd Date Colby Whitfield DO [address] [place] [address] PCP - GeneralFamily Medicine10/14/22 Laya Thompson NP [address] [place] [address] PCP - ACO Reach01/04/24 Laya Thompson NP [address] [place] [address] Nurse PractitionerFamily Medicine10/14/22documented as of this encounter
--- OUTSIDE RECORDS SUMMARY | 2025-02-05 10:07 | XMS_ITS | Encounter Summary ---
Author Organization [facility] Address [address] [place] [address] Care Team Providers Care Blueprinting Machine Operator Name Role Phone Roseann, Colby Pearl DO Primary Care Provider Laya Thompson SODA DISPENSER Unavailable Laya Thompson SODA DISPENSER Unavailable Encounter Details DateTypeDepartmentCare Team (Latest Contact Info)Osljvhfyerd83/29/2025bstract [facility] [address] [place] [address] Laya Thompson, SODA DISPENSER [address] [place] [address] Social History Tobacco UseTypesPacks/DayYears UsedDateSmoking Tobacco: FormerCigarettes0.515 02/06/1991 - 02/06/2006Smokeless Tobacco: Never Comments:Last smoked: more t brennan 10 years ago Alcohol UseStandard Drinks/WeekCommentsYes1 (1 standard drink = 0.6 oz pure alcohol)I drink a beer once a [id number] Health LiteracyAnswerDate RecordedHow often do you need [...] relatives?Once a week09/04/2024How often do you attend restorationist or jainism services?More than 4 times per year09/04/2024Do you belong to any clubs or organizations such as restorationist groups, unions, fraternal or athletic groups, or [...] very hard 09/04/2024PHQ-2AnswerDate RecordedPatient Health Questionnaire-2 Score0 05/08/2024[facility] [place] of Occupational Health - Occupational Stress QuestionnaireAnswerDate [...] you engage in exercise at this level?Patient bjmlsxpa69/02/2025Hunger Vital SignAnswerDate RecordedWithin the past 12 months, [...] steady place to sleep or slept in [facility] (including now)?No01/18/2023Housing Stability Vital SignAnswerDate RecordedIn the last 12 months, was there a time when you were not able to pay the mortgage or rent on time?Patient declined 09/04/2024In the past 12 months, how many times have you moved where you were living?t any time in the past 12 months, were you homeless or living in a fci (including now)?No09/04/2024Sex and Gender InformationValueDate RecordedSex Assigned at BirthNot on fileLegal FagZxtk1806/17/2022 6:52 PM EDT Gender IdentityNot on fileSexual OrientationNot on filedocumented as of this encounter Plan of Treatment DateTypeDepartmentCare Team (Latest Contact Info)Ytffdqwoxzg86/24/2025 10:30 AM ESTOffice Visit [facility] [address] [place] [phone] Laya Thompson, SODA DISPENSER [address] [place] [address] 04/20/2025 11:00 AM ESTOffice Visit [facility] [address] [place] [address] Nicol Ballard, PA [address] [place] [address] documented as of this encounter Visit Diagnoses Not on filedocumented in this encounter Care Teams Team MemberRelationshipSpecialtyStart DateEnd Date Colby Whitfield, [address] [place], [place] [id number] PCP - GeneralFamily Medicine10/14/22 Laya Thompson, SODA DISPENSER [address] [place] [address] PCP - ACO Reach01/04/24 Laya Thompson, SODA DISPENSER [address] [place] [address] Nurse PractitionerFamily Medicine10/14/22documented as of this encounter
--- OUTSIDE RECORDS SUMMARY | 2025-02-05 10:07 | XMS_ITS | Clinical Summary ---
Author Organization [facility] Healthcare Address [address] [place] [address] Care Team Providers Care Operational Meteorologist Name Role Phone Colby Whitfield DO Primary Care Provider [phone]- [phone] Laya Thompson [employer]IE[employer] Unavailable Laya Thompson [employer] HEEL PIECE [employer]ER Unavailable Allergies No known active allergies Medications [...] mellitus with other specified complication, unspecified whether halfway insulin use (HCC)Inject 34 Units under the [...] insulin (HCC)Daily testing 100 each 3105Active Lancets misc Indications:Type 2 diabetes mellitus treated with insulin ([facility])1 Units 4 (four) times a day as needed (blood glucose monitoring with insulin) 100 each 1115Active atenolol (Tenormin) 50 MG tablet Indications:Primary hypertensionTake 1 tablet (50 mg) by mouth Daily 90 tablet 104510/Discontinued(Reorder) Lancet Devices (Autolet) lancing device Indications:Type 2 diabetes mellitus without complication, without long-term current use of insulin ([facility])Daily testing 100 each 510/Discontinued(Reorder) Active Problems ProblemNoted DateDiagnosed DateArthritis, multiple joint nelwhagqqca41/17/2023 Chronic GERD10/19/2022PAP (continuous positive airway pressure) dependence 10/19/2022isc degeneration, pyqzox4910/19/2022Mixed cgpoymumnnttmp02/17/2023 Environmental and seasonal luiybfqdb30/17/2023Lumbar quwnqhnfirf66/17/2023 Obstructive sleep apnea mtjmhkaf98/17/2023Stage 3a chronic kidney disease 10/19/2022Vitamin D dsomcdabfd81/17/2023Type 2 diabetes mellitus with npjackuqjmnw14/07/2017Primary jhmcwodnqcmw72/07/2017 Resolved Problems ProblemNoted DateDiagnosed DateResolved DateAge-related cataract of both eyes /rthritis of right acromioclavicular joint10/19/2022 05/21/2023hronic kidney disease, stage 2 (mild)/uodenitis /Erectile clpsspxdydj01/17/202306/03/2024Hypomagnesemia /02/2024Left carpal tunnel aeovqyvq80/Nontraumatic tear of right rotator cuff/rimary osteoarthritis of right wrist/4Problems with qbcbhlzoln11/17/202306/4Rupture of right rotator cuff/iabetes mellitus without complication /Rotator cuff syndrome of right qqmltfbi18/ Gastroesophageal reflux disease without frgqurfdpaq68 Thqhopizrybdhxjona04/07/201707/18/2023Sleep apneaType 2 diabetes fhokbbxc07iliary colic Encounters DateTypeDepartmentCare ZiwbFwalujmejjr47/29/2025bstract [place] [id number] [place] [address] Laya Thompson, [employer]ER 01/28/2025Telephone [place] [address] [place] [address] Laya Thompson, [employer]ER 01/26/2025Refill [place] [phone] [place] [address] Deidra Burnette MA Type 2 diabetes mellitus without complication, without long-term current use of insulin ([facility])01/22/2025bstract [place] [phone] [place] [address] Laya Thompson, [employer]ER 01/15/2025Telephone [place] [phone] [place] [phone] Laya Thompson, [employer] P[employer] SH[employer]ER refill nlzjzhto53/09/2025Abstract [place] [address] [place] [address] Laya Thompson, [employer]IE[employer]ER 01/05/2025Refill [place] [phone] [place] [address] Laya Thompson, [employer]IE[employer]ER Type 2 diabetes mellitus with complication ([facility])01/05/2025Refill [address] [place] [address] Laya Thompson, [employer]ER Type 2 diabetes mellitus with complication (HCC) (Primary Dx)01/04/2025bstract [address] [place] [address] Laya Thompson, [employer]ER 01/03/2025 11:00 AM EDTOffice Visit [address] [place] [phone] Laya Thompson, F[employer] HE[employer] PIE[employer] SHAPER Chronic left shoulder pain (Primary Dx); Mixed hyperlipidemia; Type 2 diabetes mellitus with complication (HCC); Stage 3a chronic kidney disease ([facility]); Primary pqzisohdqiqk80/01/2025bstract [place] [address] [facility] [address] [place] [address] Laya Thompson, F[employer] HE[employer] PIECE SHAPER 01/03/2025amboo flowsheet [address] [place] [address] Laya Thompson, [employer] HE[employer] PIE[employer] SHAPER 01/03/20254039Pfuhaq73/24/2025Orders Only [address] [place] [phone] Laya Thompson, F[employer] HE[employer] PIE[employer] SH[employer]ER 12/21/2024Patient Outreach [facility] [address] [place] [address] Haven Schmidt LPN 12/18/2024 11:00 AM EDTOffice Visit [facility] [address] [place] [address] Bigg Dial DO Left shoulder pain, unspecified pmblajckyv61/15/2025Refill [place] [address] [place] [address] Oneida Noel MA Environmental and seasonal allergies; Primary xztuwdftcosr98/15/2025amboo flowsheet [facility] [address] [facility] [address] [address] [place] [phone] Bigg Dial, 12/18/20240694Bfdjpk18/02/2025Telephone [facility] [address] [place] [address] Laya Thompson, F[employer]ER HE[employer] PIECE SHAPER refill Omeprazolefrom Last 3 Months Immunizations ImmunizationAdministration DatesNext DueInfluenza, High Dose Seasonal, Preservative Free03/02/2018,01/07/2017Influenza, High-dose Seasonal, Quadrivalent, Preservative Free03/03/2022,01/01/2021Influenza, injectable, hceqwuckgije15/30/2016Influenza, injectable, quadrivalent, preservative free 02/22/2020,03/11/2015Influenza, trivalent, glzkjboehj06/21/2020Pneumococcal Conjugate PCV 13105/12/2014Pneumococcal Polysaccharide NJOI561805/02/2016 Family History Medical HistoryRelationNameCommentsCancerFatherRussell KentOtherFatherRussell Kentbladder cancerNo [...] pure alcohol)I drink a beer once a pridD4423 Health LiteracyAnswerDate RecordedHow often do you need [...] relatives?Once a week09/04/2024How often do you attend baptist or jewish services?More than 4 times per year09/04/2024Do you belong to any clubs or organizations such as baptist groups, unions, fraternal or athletic groups, or [...] very hard 09/04/2024PHQ-2AnswerDate RecordedPatient Health Questionnaire-2 Score0 05/08/2024[employer] - Occupational Stress QuestionnaireAnswerDate [...] you engage in exercise at this level?Patient krqugmbq03/02/2025Hunger Vital SignAnswerDate RecordedWithin the past 12 months, [...] steady place to sleep or slept in [place] (including now)?No01/18/2023Housing Stability Vital SignAnswerDate RecordedIn the last 12 months, was there a time when you were not able to pay the mortgage or rent on time?Patient declined 09/04/2024In the past 12 months, how many times have you moved where you were living?t any time in the past 12 months, were you homeless or living in a nursing home (including now)?No09/04/2024Sex and Gender InformationValueDate RecordedSex Assigned at BirthNot on fileLegal AizSdws8606/17/2022 6:52 PM EDT Gender IdentityNot on fileSexual OrientationNot on file Last Filed Vital Signs Vital SignReadingTime TakenCommentsBlood Snpengmi322/5801/03/2025 11:07 AM EDT Leory259001/03/2025 11:07 AM MITRjppihzntpk86.9 ??C (96.7 ??F)01/03/2025 11:07 AM EDTRespiratory Rcpv9517 11:07 AM EDTOxygen Jmtldcices85%01/03/2025 11:07 AM EDTInhaled Oxygen Concentration--Yvmunn02.6 kg (162 lb 3.2 oz)01/03/2025 11:07 AM EHCIdmojm608.3 cm (5' 9 )01/03/2025 11:07 AM EDTBody Mass Index23.95 01/03/2025 11:07 AM EDT Plan of Treatment DateTypeDepartmentCare Team (Latest Contact Info)Tbagmewbuvn12/24/2025 10:30 AM ESTOffice Visit [facility] [address] [place] [phone] Laya Thompson, F[employer]ER HEEL PIECE SHAPER [address] [place] [address] 04/20/2025 11:00 AM ESTOffice Visit [facility] [address] [place] [phone] Nicol Ballard, [place] [address] [place] [address] Health MaintenanceDue DateLast DoneCommentsDTaP/Tdap/Td Vaccines (1 - Tdap) 1COVID-19 Vaccine (2 - 2024- season)501Diabetes: Urine Protein Yksuhbcmv81/12/2023, 08/12/2021, 05/30/2020, Additional history existsDiabetes: Hemoglobin A1C, 09/01/2024, 05/07/2024, Additional history existsMedicare Annual Wellness (AWV)05/08/2025 05/08/2024, 05/21/2023, 04/17/2021Influenza Vaccine (#1)6105/03/2021, 01/01/2021, 02/22/2020, Additional history existsPostponed from 12/04/2024 (Patient Refused)Diabetes: Retinopathy Rnzblpttf22/26/88723806/28/2024, 06/25/2023, 12/10/2021, Additional history existsPneumococcal Vaccine: 65+ Years Mqcmstfxn71/28/2017, 03/11/2015HIB VaccinesAged OutNo longer eligible based on [...] complete this topic Procedures Procedure NamePriorityDate/TimeAssociated DiagnosisCommentsHEMOGLOBIN F5LGnfuijj 12/26/2024 8:52 AM EDTPR ARTHROCENTESIS ASPIR&/INJ MAJOR JT/BURSA W/USRoutine 12/18/2024 10:47 AM EDT Left shoulder pain, unspecified chronicity RI ARTHROCENTESIS ASPIR&/INJ MAJOR JT/BURSA W/IRRxlkpah99/15/2025 10:46 AM EDT Left shoulder pain, unspecified chronicity DIABETIC RETINOPATHY SCREENING - OU - BOTH BSQASersdmy28/26/2025 8:51 AM EDT MICROALBUMIN / CREATININE URINE DYPKTCbndhcb80/09/2024 Type 2 diabetes mellitus with complication (HCC) from Last 3 Months or Most Recently Relevant to Health Maintenance Results * (ABNORMAL) Hemoglobin A1c (12/26/2024 8:52 AM EDT)Specimen (Source)Anatomical Location / LateralityCollection Method / VolumeCollection TimeReceived Time BloodVenous blood specimen / Unknown Narrative Authorizing ProviderResult TypeResult StatusGerri L Jay NPLAB BLOOD ORDERABLES Final Result * RI ARTHROCENTESIS ASPIR&/INJ MAJOR JT/BURSA W/US (12/18/2024 10:47 AM EDT) Narrative Jessica Gipson, [facility] - 12/18/2024 10:47 AM EDT Jessica Gipson, [facility] 12/18/2024 3:39 PM L Inj/Asp: L subacromial bursa on 12/18/2024 10:47 AM Indications: pain Details: 25 G needle, ultrasound-guided Medications: 1 mL betamethasone acetate-betamethasone sodium phosphate 6 (3-3) MG/ML Consent was given by the patient. Authorizing ProviderResult TypeResult StatusBigg [facility]/BEDSIDE ORDERABLESFinal Result * RI ARTHROCENTESIS ASPIR&/INJ MAJOR JT/BURSA W/US (12/18/2024 10:46 AM EDT) Narrative Jessica Gipson, [facility] - 12/18/2024 10:46 AM EDT Jessica Gipson, [facility] 12/18/2024 3:39 PM L Inj/Asp: L glenohumeral on 12/18/2024 10:46 AM Indications: pain Details: 25 G needle, ultrasound-guided Medications: 1 mL betamethasone acetate-betamethasone sodium phosphate 6 (3-3) MG/ML Consent was given by the patient. Authorizing ProviderResult TypeResult Remington [facility]/BEDSIDE ORDERABLESFinal Result * Diabetic Retinopathy Screening - OU - Both Eyes (06/28/2024 8:51 AM EDT) Anatomical RegionLateralityModalityHeadOther Narrative Authorizing ProviderResult TypeResult StatusGerri L Rine NPOPHTH PHOTOGRAPHY Final Result * Microalbumin / creatinine, urine ratio (01/12/2024)ComponentValueRef RangeTest MethodAnalysis TimePerformed AtPathologist SignatureMICROALBUMIN, URINE40.7 QUESTALB/CREAT JBRBC079.6QUESTURINE XXRAP77BZMWGSspbthnk (Source)Anatomical Location / LateralityCollection Method / VolumeCollection TimeReceived Time UrineUrine specimen obtained by clean catch procedure / Ndromqc0501/12/2024 Narrative Authorizing ProviderResult TypeResult StatusLaya Thompson NPLAB URINE ORDERABLES Final ResultPerforming OrganizationAddressCity/State/ZIP CodePhone Number [facility] from Last 3 Months or Most Recently Relevant to Health Maintenance Insurance Advance Directives TypeDate RecordedPatient RepresentativeExplanationAdvance Directives and Living [id number] Care Teams Team MemberRelationshipSpecialtyStart DateEnd Colby Whitfield DO [address] [place] [address] PCP - GeneralFamily Medicine10/14/22 Laya Thompson NP [address] [place] [address] PCP - [facility]01/04/24 Laya Thompson NP [address] [place] [address] Nurse PractitionerFamiMorgan Medical Center10/14/22
[2025-02-05 10:28] VITALS: BP 106/65; PULSE 57; TEMP 36.4; O2SAT 95
[2025-02-05] MEDS: BUPIVACAINE HCL 0.25% PF 25 MG/10 ML VIAL 2 ML INJ (11:03)
[2025-02-05] MEDS: METHYLPREDNISOLONE ACETATE 40 MG/ML VIAL INJ (11:03)
[2025-02-05] MEDS: LIDOCAINE HCL 2% 400 MG/20 ML MDV INJ (11:03)
--- NOTE | 2025-02-05 11:06 | W.PM.PROCNOT ---
Date of procedure: 02/05/25 Pre-op diagnosis: Pain due to left shoulder osteoarthritis Post-op diagnosis: same as pre-op Procedure: Procedure: Left suprascapular and axillary nerve radiofrequency ablation Medications: Bupivacaine 0.25% 2cc, depomedrol 40mg, lidocaine 2% 6cc The patient was seen and examined in the preoperative holding area. Informed consent was obtained and placed on the chart.? The patient was brought to the medical procedure unit and placed in the prone position. A timeout was completed verifying correct patient, procedure site, positioning, plan, and special equipment.? Using aseptic technique, under direct fluoroscopic visualization, a 20-gauge 15 cm with a 10 mm curved active tip radiofrequency cannula was advanced to the superior portion of the left posterior osseous rim of the glenoid fossa, lateral and superior to the spinal glenoid notch. Motor stimulation was carried out at 2 Hz up to 5 volts with the absence of extremity activity. Then radiofrequency lesioning was carried out for 90 seconds at 80 degrees.? The needle was then redirected 3 mm inferiorly and another lesioning was carried out for 90 seconds at 80 degree.? Using aseptic technique, under direct fluoroscopic visualization, another 20-gauge 15 cm with a 10 mm curved active tip radiofrequency cannula was advanced toward the most inferior and lateral border of the greater tubercle. Motor stimulation was carried out at 2 Hz up to 5 volts with the absence of extremity activity. Then radiofrequency lesioning was carried out for 90 seconds at 80 degrees.? The needle was then redirected 3 mm inferiorly and another lesioning was carried out for 90 seconds at 80 degree.? The patient was taken to the postprocedural recovery area and monitored for an appropriate length of time before being found suitable for discharge in the accompaniment of a responsible adult. Anesthesia: Local Surgeon: Ponce Fuentes Pathology: none sent Condition: stable Disposition: no change
[2025-02-05 11:07] VITALS: BP 110/51; BP 99/54; PULSE 18; O2SAT 95
== END 2025-02-05 11:11 | disposition home or self-care (01) ==
PROVIDERS: PCP Nurse Practitioner; Visit Provider Anesthesiology
DX: M19.012 Primary osteoarthritis, left shoulder (principal); M25.512 Pain in left shoulder; E11.8 Type 2 diabetes mellitus with unspecified complications; Z79.84 Long term (current) use of oral hypoglycemic drugs
CPT/HCPCS: 36415; 64640; 82948; J0665; J1010

== ENCOUNTER 2025-03-08 10:21 | Outpatient (OUT) | payer MEDICARE, OTHER, SELFPAY ==
--- OUTSIDE RECORDS SUMMARY | 2025-02-26 10:30 | XMS_ITS | Encounter Summary ---
Author Organization [facility] Address [address] [place] [address] Care Team Providers Care Director Of Volunteer Services Name Role Phone Roseann, Colby Pearl DO Primary Care Provider [phone] Laya Thompson FIELD CASHIER Unavailable Laya Thompson NP Unavailable Reason for Referral * Imaging (Routine) - AuthorizedSpecialtyDiagnoses / ProceduresReferred By ContactReferred To ContactRadiology Diagnoses Cardiac murmur Procedures Transthoracic Echo (TTE) Complete Laya Thompson NP [address] [place] [address] Phone: tel: fax: [address] [phone] fax: Referral IDStatusReasonStart DateExpiration DateVisits RequestedVisits [id number] Perform Procedure / Reason for Visit * ReasonCommentsFollow up Encounter Details DateTypeDepartmentCare Team (Latest Contact Info)Hebxmfiwyic37/24/2025 10:30 AM ESTOffice Visit [facility] [address] [place] [phone] Laya Thompson NP [address] [place] [address] Cardiac murmur (Primary Dx); Type 2 diabetes mellitus with complication (HCC); Arthritis, multiple joint involvement; Stage 3a chronic kidney disease (CMS-HCC); Mixed hyperlipidemia; Elevated cholesterol; Prostate cancer screening Social History Tobacco UseTypesPacks/DayYears UsedDateSmoking Tobacco: FormerCigarettes0.515 02/06/1991 - 02/06/2006Smokeless Tobacco: Never Tobacco Cessation:Counseling Given: No Comments:Last smoked: more than 10 years ago Alcohol UseStandard Drinks/WeekCommentsYes1 (1 standard drink = 0.6 oz pure alcohol)I drink a beer once a [id number] Health LiteracyAnswerDate RecordedHow often do you need [...] relatives?Once a week09/04/2024How often do you attend congregation or oriental orthodox services?More than 4 times per year09/04/2024Do you belong to any clubs or organizations such as congregation groups, unions, fraternal or athletic groups, or [...] very hard 09/04/2024PHQ-2AnswerDate RecordedPatient Health Questionnaire-2 Score0 05/08/2024[facility] [place] [facility] - Occupational Stress QuestionnaireAnswerDate [...] you engage in exercise at this level?Patient fvshojah68/02/2025Hunger Vital SignAnswerDate RecordedWithin the past 12 months, [...] were you homeless or living in a group home (including now)?No09/04/2024Sex and Gender InformationValueDate RecordedSex Assigned at BirthNot on fileLegal SlcOmvd2206/17/2022 6:52 PM EDT Gender IdentityNot on fileSexual OrientationNot on filedocumented as of this encounter Last Filed Vital Signs Vital SignReadingTime TakenCommentsBlood Gmbvnpun444/5802/26/2025 10:37 AM EST Xvdux520202/26/2025 10:37 AM GDGIpugvrdeymk77.6 ??C (97.8 ??F)02/26/2025 10:37 AM ESTRespiratory Tafo375904/28/2024 10:37 AM ESTOxygen Ejfacqzjak32%02/26/2025 10:37 AM ESTInhaled Oxygen Concentration--Pntvio07.2 kg (163 lb 9.6 oz)02/26/2025 10:37 AM KWWUcuuin697.3 cm (5' 9 )02/26/2025 10:37 AM ESTBody Mass Index24.16 02/26/2025 10:37 AM ESTdocumented in this encounter Patient Instructions * Patient Instructions* Laya Thompson NP - 02/26/2025 10:30 AM EST Keep working to add fiber to diet, jon seeds , flax seed etc. Consider making your own sports drink at home instead of gatorade etc Make appt for echocardiogram to evaluate the valves Fasting labs prior to appt may appt for medicare well documented in this encounter Progress Notes * Laya Thompson NP - 02/26/2025 10:30 AM EST Images from the original note were not included. Tony Starks is a 79 y.o. male presents with chief complaint of Follow up HPI: HPI ..The patient was advised that Artificial Intelligence will be utilized during this visit to record, process the conversation to generate a clinical note,. The patient consented to the use of AI, including the recording. History of Present Illness The patient presents for evaluation of diabetes, left shoulder pain, heart murmur, chronic dry eyes, and health maintenance. Diabetes Reports decreased blood glucose levels, recent A1c 7.3, and has not reviewed recent blood work. Maintains good hydration with water and Gatorade. Left Shoulder Pain Underwent nerve block on left shoulder involving 2-3 nerves, significant pain relief. Similar procedure on right shoulder in 2021 for torn rotator cuff, bone spurs, and ruptured bicep. May require future shoulder replacement. - Heart Murmur No echocardiogram for several years. Heart catheterization in 1999 or 2000 for chest pain revealed slight murmur, normal arteries. Chest pain attributed to anxiety attacks. Takes amoxicillin prophylactically before dental visits. 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 Monitored for elevated intraocular pressure every 6 months, most recent visit showed normal pressure. Chronic dry eyes, especially in winter, minimal relief from various eye drops, temporary relief from tear duct plugs. Health Maintenance Not seeing urologist or other specialists outside of family practice for PSA monitoring. Under Dr. Rangel's care at [facility] for colonoscopy screenings for 20 years, most recent colonoscopy showed no polyps. PAST SURGICAL HISTORY: - Nerve block procedures for back and hip pain - Nerve block procedure on left shoulder - Right shoulder surgery in 2021 for torn rotator cuff, bone spurs, and ruptured bicep - Heart catheterization in 1999 or 2000 MEDICATIONS: Current Outpatient Medications Medication Instructions acetaminophen-codeine [...] testing hydroCHLOROthiazide (HYDRODIURIL) 25 mg, Oral, Daily insulin aspart FlexPen (NovoLOG) 100 UNIT/ML pen 5 units Once daily before evening meal Lancet Devices (Autolet) lancing device Daily testing Lancets misc 1 Units, Does not apply, 4 times daily PRN lisinopril 20 mg, Oral, 2 times daily [...] 30 MG tablet Every 24 hours ALLERGIES: Allergies[1] SURGICAL HISTORY: Surgical History[2] FAMILY HISTORY: Family History[3] SOCIAL HISTORY: Social History[4] Depression: Not at risk (05/08/2024) PHQ-2 PHQ-2 Score: 0 REVIEW OF SYMPTOMS: Review of Systems Constitutional: Negative for appetite change and fatigue. Eyes: Negative for visual disturbance. Respiratory: Negative for cough. Cardiovascular: Negative for chest pain and palpitations. Gastrointestinal: Negative for abdominal pain. Genitourinary: Negative for difficulty urinating. Musculoskeletal: Positive for arthralgias and back pain. Neurological: Negative for dizziness. Psychiatric/Behavioral: Negative. Hematological: Negative for adenopathy. Endocrine: Negative for polydipsia. Rev his home BP log, highest blood sugar is jogjest pf raz gem 133-190 range OBJECTIVE: Visit Vitals BP 114/58 (BP Location: Left arm, Patient Position: Sitting, BP Cuff Size: Adult) Pulse 68 Temp 97.8 ??F (Tympanic) Resp 18 Ht 5' 9 Wt 163 lb 9.6 oz SpO2 95% BMI 24.16 kg/m?? Smoking Status Former BSA 1.9 m?? Physical Exam Constitutional: Appearance: Normal appearance. HENT: Head: Normocephalic and atraumatic. Eyes: Pupils: Pupils are equal, round, and reactive to light. Cardiovascular: Rate and Rhythm: Normal rate and regular rhythm. Comments: Very faint II/ systolic murmur in the aortic interspace Pulmonary: Effort: Pulmonary effort is normal. Breath sounds: Normal breath sounds. Musculoskeletal: General: Normal range of motion. Comments: Active rom in the left shoulder is nearly full (happy with injections per pain management) Skin: General: Skin is warm and dry. Neurological: General: No focal deficit present. Mental Status: He is alert. Psychiatric: Mood and Affect: Mood normal. Comments: Alert and interactive Wt up 1 pound Rev the home blood sugar log ASSESSMENT AND PLAN: Assessment/Plan Diagnoses and all orders for this visit: Cardiac murmur Comments: get echochardiogram to eval the very faint murmur, last echo remote past, no exertiona lsx Orders: - Transthoracic Echo (TTE) Complete; Future Type 2 diabetes mellitus with complication (HCC) Comments: 9.1% , now is 7.3%, continue to push fiber in diet Orders: - Hemoglobin A1c; Future - Comprehensive metabolic panel; Future Arthritis, multiple joint involvement Comments: well controlled at this time Stage 3a chronic kidney disease ([facility]-HCC) Comments: stable, will update labs prior to may mdwv, paper order given Mixed hyperlipidemia Comments: rev the last lipid panel from may,ldl 49, ? atorastatin causing myalgia, consider trial lowdose crestorm call if issues Orders: - rosuvastatin (Crestor) 10 MG tablet; Take 1 tablet (10 mg) by mouth Daily - Lipid panel; Future Elevated cholesterol Comments: for lab purpose only Orders: - Lipid panel; Future Prostate cancer screening Comments: for lab purpose only Orders: - PSA; Future Other orders - Follow Up In Family Medicine; Future ..I have reviewed and reconciled the history, allergies, family history, social history, and the medication list with the patient today. Follow up with Laya Thompson medicare well visit in may, lab prior. [1] No Known Allergies [2] Past Surgical History: Procedure Laterality Date ANTERIOR CRUCIATE LIGAMENT REPAIR COLONOSCOPY 2010 EYE SURGERY KNEE SURGERY Arthroscopy knee MOHS SURGERY AL REPAIR OF NASAL SEPTUM nasal septoplasty to correct a deviated nasal septum ROTATOR CUFF REPAIR SHOULDER ARTHROSCOPY 05/09/2020 Rt shoulder scope, LHB debridement, RCR/SAD- DAP SKIN BIOPSY THROAT SURGERY x 2- per Dr Rowland TONSILLECTOMY VASECTOMY [3] Family History Problem Relation Name Age of Onset Diabetes Mother Terra Starks Hypertension Mother Terra Starks Heart disease Mother Terra Starks Other (Other) Father Yuval Starks bladder cancer Cancer Father Yuval Starks No Known Problems Maternal Grandmother No Known Problems Maternal Grandfather No Known Problems Paternal Grandmother No Known Problems Paternal Grandfather Diabetes Sibling [4] Social History Tobacco Use Smoking status: Former Current packs/day: 0.00 Average packs/day: 0.5 packs/day for 15.0 years (7.5 ttl pk-yrs) Types: Cigarettes Start date: 02/06/1991 Quit date: 02/06/2006 Years since quittin.0 Smokeless tobacco: Never Tobacco comments: Last smoked: more than 10 years ago Substance Use Topics Alcohol use: Yes Alcohol/week: 1.0 standard drink of alcohol Types: 1 Cans of beer per week Comment: I drink a beer once a week Drug use: Never documented in this encounter Plan of Treatment DateTypeDepartmentCare Team (Latest Contact Info)Phtoormbgqf31/16/2026 11:00 AM ESTOffice Visit [facility] [address] [place] [address] Nicol Ballard PA [address] [place] [address] 05/22/2025 10:30 AM ESTOffice Visit [facility] [address] [place] [address] Laya Thompson NP [address] [place] [address] NameTypePriorityAssociated DiagnosesOrder ScheduleTransthoracic Echo (TTE) CompleteEchocardiographyRoutine Cardiac murmur Expected: 02/26/2025 (Approximate), Expires: 02/26/2027Hemoglobin Q7wTqoQornh Type 2 diabetes mellitus with complication (HCC) Expected: 05/07/2025, Expires: 08/05/2025omprehensive metabolic panelLabToday Type 2 diabetes mellitus with complication (HCC) Expected: 05/07/2025, Expires: 08/05/2025Lipid panelLabToday Mixed hyperlipidemia Elevated cholesterol Expected: 05/07/2025, Expires: 08/05/2025PSALabToday Prostate cancer screening Expected: 05/07/2025, Expires: 08/05/2025documented as of this encounter Visit Diagnoses Diagnosis Cardiac murmur- Primary Undiagnosed cardiac murmurs Type 2 diabetes mellitus with complication (HCC) Arthritis, multiple joint involvement Unspecified arthropathy, multiple sites Stage 3a chronic kidney disease (CMS-HCC) Mixed hyperlipidemia Elevated cholesterol Pure hypercholesterolemia Prostate cancer screening Special screening for malignant neoplasm of prostate documented in this encounter Care Teams Team MemberRelationshipSpecialtyStart DateEnd Date Colby Whitfield DO [address] [place] [address] PCP - GeneralFamily Medicine10/14/22 Laya Thompson NP [address] [place] [address] PCP - ACO Reach01/04/24 Laya Thompson FIELD CASHIER [address] [place] [address] Nurse PractitionerFamily Medicine10/14/22documented as of this encounter
--- OUTSIDE RECORDS SUMMARY | 2025-03-08 10:25 | XMS_ITS | Clinical Summary ---
Author Organization [facility] Address [address], [address] [place] [address] Care Team Providers Care Skate Boarder Name Role Phone Colby Whitfield DO Primary Care Provider [phone] Allergies No known active allergies Medications MedicationSigDispense QuantityRefillsLast FilledStart DateEnd DateStatus omeprazole (PRILOSEC) 20 MG capsule Take 20 mg by mouth daily.Active atenolol (TENORMIN) 50 MG tablet Take 50 mg by mouth daily.Active lisinopril (PRINIVIL;ZESTRIL) 10 MG tablet Take 20 mg by mouth 2 times dailyActive atorvastatin (LIPITOR) 40 MG tablet Take 40 mg by mouth daily.Active aspirin 81 MG tablet Take 81 mg by mouth daily.Active multivitamin (THERAGRAN) per tablet Take 1 tablet by mouth daily.Active hydrochlorothiazide (HYDRODIURIL) 25 MG tablet Take 25 mg by mouth dailyActive CALCIUM-VITAMIN D PO Take by mouthActive Insulin Degludec (TRESIBA SC) Inject 64 Units into the skin nightlyActive JANUMET XR 50-1000 MG TB24 per extended release tablet 2 tablets 1 in am and 1 in PM03/31/2022ctive MELATONIN PO Take by mouthActive famotidine (PEPCID) 20 MG tablet 02/02/2022ctive APPLE CIDER VINEGAR PO Take by mouthActive ZINC PO Take by mouthActive vitamin B-6 (PYRIDOXINE) 50 MG tablet Take 100 mg by mouth dailyActive FLUTICASONE PROPIONATE, NASAL, NA by Nasal routeActive sucralfate (CARAFATE) 1 GM/10ML suspension Indications:DuodenitisTake 10 mLs by mouth 4 times daily 1200 mL 05/05/2022ctive Active Problems ProblemNoted DateDiagnosed DateRotator cuff syndrome of right kmyqybob11/04/2021 HTN (hypertension)11/09/20164260Jxhtjkfvamvbssfrgj80/07/2017Gastroesophageal reflux disease without celsjxrazbf21/07/2017Type 2 diabetes mellitus with complication 11/09/2016Sleep apnea11/09/2016Biliary colic11/17/2013 Encounters DateTypeDepartmentCare ZockIlfbhrawxgg20/25/2025bstract [facility]iology [address] [place] [address] Laya Thompson APRN - NP 02/26/2025Transcribe Orders [facility] [address] [place] [id number] Laya Thompson APRN - NP Cardiac murmur (Primary Dx)from Last 3 Months Social History Tobacco UseTypesPacks/DayYears UsedDateSmoking Tobacco: FormerCigarettes0.525 11/30/1981 - 11/30/2006PipeSmokeless Tobacco: FormerSnuff, Chew Tobacco Cessation:Counseling Given: Not Answered Alcohol UseStandard Drinks/WeekCommentsYes9 (1 standard drink = 0.6 oz pure alcohol)states occassionallyOverall Financial Resource Strain (CARDIA)AnswerDate RecordedHow hard is it for you to pay for the very basics like food, housing, medical care, and heating?Not very hard06/04/2022HQ-2AnswerDate RecordedPHQ-9 Total Qfhea522Hunger Vital SignAnswerDate RecordedWithin the past 12 months, you worried that your food would run out before you got the money to buy more.Never true06/04/2022Within the past 12 months, the food you bought just didn't last and you didn't have money to get more.Never true06/04/2022RAPARE - TransportationAnswerDate RecordedLack of Transportation (Medical)Not on file 06/04/2022In the past 12 months, has lack of transportation kept you from meetings, work, or from getting things needed for daily living?No06/04/2022 Housing Stability Vital SignAnswerDate RecordedUnable to Pay for Housing in the Last YearNot on file06/04/2022Number of Places Lived in the Last YearNot on file 06/04/2022In the last 12 months, was there a time when you did not have a steady place to sleep or slept in ashelter (including now)?No06/04/2022Food Insecurity AnswerDate RecordedWithin the past 12 months, you worried that your food would run out before you got the money to buymore.Within the past 12 months, the food you bought just didn't last and you didn't have money to get more.Sex and Gender InformationValueDate RecordedSex Assigned at BirthNot on fileLegal FjeQmyy1205/15/2012 3:32 PM ESTGender IdentityNot on file Sexual OrientationNot on file Last Filed Vital Signs Vital SignReadingTime TakenCommentsBlood Aothetuo744/66006/04/2022 10:21 AM EST Xngsz0807/02/2023 10:21 AM IEKUnktwreygwo74.7 ??C (98.1 ??F)05/04/2022 8:30 AM ESTRespiratory Cavt679005/04/2022 8:45 AM ESTOxygen Jrgbtixwld37%05/04/2022 8:45 AM ESTInhaled Oxygen Concentration--Udxqkl41 kg (172 lb)06/04/2022 10:21 AM EST Keuedl239.2 cm (5' 7 )06/04/2022 10:21 AM ESTBody Mass Index26.9406/04/2022 10:21 AM EST Plan of Treatment Health MaintenanceDue DateLast GmeeNilrxomkSaawri68/20/1954Depression Screen 1955Diabetic Alb to Cr ratio (uACR) test2DTaP/Tdap/Td vaccine (1 - Tdap)06/22/1962Shingles vaccine (1 of 2)06/22/1993Respiratory Syncytial Virus (RSV) or age 60 yrs+ (1 - 1-dose 75+ series)06/22/2018GFR test (Diabetes, CKD 3-4, OR last GFR 15-59)/1Annual Wellness Visit (Medicare)03/01/2023Flu vaccine (#1)511/, 01/01/2021, 02/22/2020, Additional history existsCOVID-19 Vaccine (2 - season) 1Pneumococcal 50+ years RvddebyHcscyknml73/28/2017, 03/11/2015Hepatitis A vaccineAged OutNo longer eligible based on patient's age to complete this topicHepatitis B vaccineAged OutNo longer eligible based on patient's age to complete this topicHib vaccineAged OutNo longer eligible based on patient's age to complete this topicMeningococcal (ACWY) vaccineAged OutNo longer eligible based on patient's age to complete this topicMeningococcal B vaccineAged OutNo longer eligible based on patient's age to complete this topic Polio vaccineAged OutNo longer eligible based on patient's age to complete this topic Medical Devices ImplantedTypeAreaManufacturerDevice IdentifierShelf Expiration DateModel / Serial / LotAnchor Suture Biocomp [id number] Mm Tiana C Implanted:Qty: 2 on 05/09/2020 [facility]: ShoulderARTHREX [id number] / / Procedures Procedure NamePriorityDate/TimeAssociated DiagnosisCommentsBASIC METABOLIC PANEL Pdsjecj7405/02/2020 11:35 AM EST from Last 3 Months or Most Recently Relevant to Health Maintenance Results * (ABNORMAL) Basic Metabolic Panel (05/02/2020 11:35 AM EST)ComponentValueRef RangeTest MethodAnalysis TimePerformed AtPathologist LzprrcxfiLoaadrb979(H)70 - 99 mg/dL05/02/2020 11:35 AM ESTmyFairPartner KTKIDX99(H)8 - 23 mg/dL 05/02/2020 11:35 AM [facility] LABCreatinine1.26(H)0.70 - 1.20 mg/dL05/02/2020 11:35 AM [facility] LABBUN/Creatinine Glwpu400 - 11:35 AM [facility] MPPHgigcqq48.6(H)8.6 - 10.4 mg/dL05/02/2020 11:35 AM [facility] LWJRovaeg072(L)135 - 144 mmol/L05/02/2020 11:35 AM [facility] LABPotassium4.53.7 - 5.3 mmol/L05/02/2020 11:35 AM [facility] FDVQqnpyags2738 - 107 mmol/L 05/02/2020 11:35 AM [facility] VMWUY70802 - 31 mmol/L05/02/2020 11:35 AM [facility] LABAnion Gap99 - 17 mmol/L05/02/2020 11:35 AM [facility] LABGFR Non- Mdscoaxe43(L)>60 mL/min05/02/2020 11:35 AM ESTMaxMilhas JG LABGFR >60>60 mL/min 05/02/2020 11:35 AM [facility] LABGFR Acqpnrj7705/02/2020 11:35 AM [facility] LABComment: Average GFR for 70 or more years old: 75 mL/min/1.73sq m Chronic Kidney Disease: <60 mL/min/1.73sq m Kidney failure: <15 mL/min/1.73sq m ? eGFR calculated using average adult body mass. Additional eGFR calculator available at: ? http://www.Hopscot.ch/multiple_crcl_2012.htm ? GFR StagingNOT OIDKOQOV93/28/2021 11:35 AM [facility] LABSpecimen (Source)Anatomical Location / LateralityCollection Method / VolumeCollection TimeReceived Time05/02/2020 11:35 AM EST05/02/2020 11:36 AM EST Narrative Authorizing ProviderResult TypeResult StatusDavid John Pocos DOCHEMISTRY ORDERABLESFinal ResultPerforming OrganizationAddressCity/State/ZIP CodePhone Number [facility] [address] [place], [place] [address] [phone] from Last 3 Months or Most Recently Relevant to Health Maintenance Insurance * Guarantor: Tony Starks AAccount TypeRelation to PatientDate of BirthPhone Billing AddressPersonal/JlbpniJavg89/20/1946 [id number] [id number] Advance Directives * Full Code (Latest Code Status on File) Date ActivatedDate InactivatedComments05/09/2020 2:39 PM2 6:46 PM * Full Code Date ActivatedDate InactivatedComments05/09/2020 10:31 AM05/09/2020 2:39 PM * Full Code Date ActivatedDate InactivatedComments11/30/2016 6:33 AM11/30/2016 11:59 AM NameRelationshipHealthcare Agent RelationshipCommunicationDeeann [facility] Primary Decision Maker* Care Teams Team MemberRelationshipSpecialtyStart DateEnd Date Colby Whitfield DO [address] [place], [place] [id number] [facility] - [facility]Sol[facility] Medicine11/24/16
--- OUTSIDE RECORDS SUMMARY | 2025-03-08 10:26 | XMS_ITS | Clinical Summary ---
Author Organization [facility] Healthcare Address [address] [place] [address] Care Team Providers Care Watch Technician Name Role Phone Colby Whitfield DO Primary Care Provider [phone] Laya Thopmson CLUBHOUSE ATTENDANT Unavailable Laya Thompson CLUBHOUSE ATTENDANT Unavailable Allergies No known active allergies Medications [...] mellitus with other specified complication, unspecified whether retirement insulin use (HCC)Inject 34 Units under the [...] mg) by mouth Daily 90 tablet 5Active insulin aspart FlexPen (NovoLOG) 100 UNIT/ML pen Indications:Type 2 diabetes mellitus with complication (HCC)5 units Once daily before evening meal 1 each 5Active atenolol (Tenormin) 50 MG tablet Indications:Primary hypertensionTake 1 tablet (50 mg) by mouth Daily 90 tablet 5Active Lancet Devices (Autolet) lancing device Indications:Type 2 diabetes mellitus without complication, without long-term current use of insulin (HCC)Daily testing 100 each 5Active Lancets [facility] Indications:Type 2 diabetes mellitus treated with insulin ([facility])1 Units 4 (four) times a day as needed (blood glucose monitoring with insulin) 100 each 1115Active rosuvastatin (Crestor) 10 MG tablet Indications:Mixed hyperlipidemiaTake 1 tablet (10 mg) by mouth Daily 90 tablet 5Active rosuvastatin (Crestor) 10 MG tablet Indications:Mixed hyperlipidemiaTake 1 tablet (10 mg) by mouth Daily 30 tablet Discontinued(Reorder) Active Problems ProblemNoted DateDiagnosed DateArthritis, multiple joint jzaldjnnzay87/17/2023 Chronic GERD10/19/2022PAP (continuous positive airway pressure) dependence 10/19/2022isc degeneration, dikqnd1110/19/2022Mixed rjgxxqraoxsltc38/17/2023 Environmental and seasonal /17/2023Lumbar rnfykgmwmnt15/17/2023 Obstructive sleep apnea dushxibd37/17/2023Stage 3a chronic kidney disease 10/19/2022Vitamin D sjtxnhymms06/17/2023Type 2 diabetes mellitus with htmdpqwzekot61/07/2017Primary ownzanefhuht57/07/2017 Resolved Problems ProblemNoted DateDiagnosed DateResolved DateAge-related cataract of both eyes /rthritis of right acromioclavicular joint10/19/2022 05/21/2023hronic kidney disease, stage 2 (mild)/3Duodenitis /Erectile kxpdexpdldo09/17/202306/03/2024Hypomagnesemia /02/2024Left carpal tunnel rrqvcvzl21Nontraumatic tear of right rotator cuff/rimary osteoarthritis of right wrist/roblems with rxrweniiqy77/17/202306/upture of right rotator cuff/iabetes mellitus without complication /Rotator cuff syndrome of right durtryno19 Gastroesophageal reflux disease without ydhxrdjalrh45 Ippcgajzxfqkahfmov07/07/201707/18/2023Sleep apneaType 2 diabetes udnhrdby13iliary colic Encounters DateTypeDepartmentCare ZqhqEyhzjskzrfx10/24/2025 10:30 AM ESTOffice Visit [facility] [address] [place] [address] Laya Thompson, CLUBHOUSE ATTENDANT Cardiac murmur (Primary Dx); Type 2 diabetes mellitus with complication (HCC); Arthritis, multiple joint involvement; Stage 3a chronic kidney disease (CMS-HCC); Mixed hyperlipidemia; Elevated cholesterol; Prostate cancer mbapbodmx03/24/2025amboo flowsheet [place] [address] [place] [address] Laya Thompson, MERCEDES 02/26/20250060Kuumaf21/23/7051Jfntrs84/21/2025bstract [place] [address] [place] [address] Laya Thompson, MERCEDES 02/21/2025bstract [place] [address] [facility] [address] Laya Thompson NP 02/14/2025Telephone [facility] [address] [place] [phone] Jessica Gipson, ASAEL surgery (I called to give surgery information. He said he hasd blocks done and is doing better. He will dana if things change)02/05/2025bstract [place] [address] [place] [address] Laya Thompson, CLUBHOUSE ATTENDANT 01/31/2025bstract [place] [address] [place] [address] Laya Thompson, CLUBHOUSE ATTENDANT 01/28/2025Telephone [place] [address] [place] [address] Laya Thompson, CLUBHOUSE ATTENDANT 01/26/2025Refill [address] [place] [address] Deidra Burnette MA Type 2 diabetes mellitus without complication, without long-term current use of insulin (HCC)01/22/2025bstract [place] [address] [place] [address] Laya Thompson, CLUBHOUSE ATTENDANT 01/15/2025Telephone [address] [place] [address] Laya Thompson, CLUBHOUSE ATTENDANT refill pywbrtjg80/09/2025Abstract [address] [place] [address] Laya Thompson, CLUBHOUSE ATTENDANT 01/05/2025Refill [address] [place] [address] Laya Thompson, CLUBHOUSE ATTENDANT Type 2 diabetes mellitus with complication (HCC)01/05/2025Refill [address] [place] [address] Laya Thompson, CLUBHOUSE ATTENDANT Type 2 diabetes mellitus with complication (HCC) (Primary Dx)01/04/2025bstract [address] [place] [address] Laya Thompson, CLUBHOUSE ATTENDANT 01/03/2025 11:00 AM EDTOffice Visit [address] [place] [address] Laya Thompson, CLUBHOUSE ATTENDANT Chronic left shoulder pain (Primary Dx); Mixed hyperlipidemia; Type 2 diabetes mellitus with complication (HCC); Stage 3a chronic kidney disease ([facility]); Primary vcopggfwbbpq06/01/2025bstract [address] [facility] [address] [place] [address] Laya Thompson, CLUBHOUSE ATTENDANT 01/03/2025amboo flowsheet [place] [address] [place] [address] Laya Thompson, CLUBHOUSE ATTENDANT 01/03/20253273Koihbl12/24/2025Orders Only [facility] [place] [address] [place] [address] Laya Thompson, CLUBHOUSE ATTENDANT 12/21/2024Patient Outreach [facility] [address] [place] [address] Haven Schmidt LPN 12/18/2024 11:00 AM EDTOffice Visit [facility] [address] [place] [phone] Bigg Dial DO Left shoulder pain, unspecified vlbicbwbgc74/15/2025Refill [place] [id number] [facility] [address] [place] [address] Oneida Noel MA Environmental and seasonal allergies; Primary ygcvswkcrnrv59/15/2025amboo flowsheet [facility] [address] [place] [phone] Bigg Dial DO 12/18/2024Travelfrom Last 3 Months Immunizations ImmunizationAdministration DatesNext DueInfluenza, High Dose Seasonal, Preservative Free03/02/2018,01/07/2017Influenza, High-dose Seasonal, Quadrivalent, Preservative Free03/03/2022,01/01/2021Influenza, injectable, dsgrllzewlnu85/30/2016Influenza, injectable, quadrivalent, preservative free 02/22/2020,03/11/2015Influenza, trivalent, xcjdnstgre19/21/2020Pneumococcal Conjugate PCV 13105/12/2014Pneumococcal Polysaccharide SAWL972305/02/2016 Family History Medical HistoryRelationNameCommentsCancerFatherRussell KentOtherFatherRussell Kentbladder cancerNo [...] pure alcohol)I drink a beer once a ymlgF0908 Health LiteracyAnswerDate RecordedHow often do you need [...] relatives?Once a week09/04/2024How often do you attend pentecostal or anabaptist services?More than 4 times per year09/04/2024Do you belong to any clubs or organizations such as pentecostal groups, unions, fraternal [...] very hard 09/04/2024PHQ-2AnswerDate RecordedPatient Health Questionnaire-2 Score0 05/08/2024[facility] [place] of Occupational Health - Occupational Stress QuestionnaireAnswerDate [...] you engage in exercise at this level?Patient cblfuczc71/02/2025Hunger Vital SignAnswerDate RecordedWithin the past 12 months, [...] were you homeless or living in a residential (including now)?No09/04/2024Sex and Gender InformationValueDate RecordedSex Assigned at BirthNot on fileLegal NjbJjog9006/17/2022 6:52 PM EDT Gender IdentityNot on fileSexual OrientationNot on file Last Filed Vital Signs Vital SignReadingTime TakenCommentsBlood Ntwdookh858/5802/26/2025 10:37 AM EST Rnbia611102/26/2025 10:37 AM TBDMgskaaleuge91.6 ??C (97.8 ??F)02/26/2025 10:37 AM ESTRespiratory Akyk926204/28/2024 10:37 AM ESTOxygen Awdislhdbj01%02/26/2025 10:37 AM ESTInhaled Oxygen Concentration--Qpcviy34.2 kg (163 lb 9.6 oz)02/26/2025 10:37 AM XYVOiskfr764.3 cm (5' 9 )02/26/2025 10:37 AM ESTBody Mass Index24.16 02/26/2025 10:37 AM EST Plan of Treatment DateTypeDepartmentCare Team (Latest Contact Info)Xxfezixtibg35/16/2026 11:00 AM ESTOffice Visit [facility] [place] [facility] [address] [place] [address] Nicol Ballard, PA [address] [place] [address] 05/22/2025 10:30 AM ESTOffice Visit [facility] [address] [place] [phone] Laya Thompson NP [address] [place] [address] Health MaintenanceDue DateLast DoneCommentsDiabetes: Urine Protein Screening 510/12/2023, 08/12/2021, 05/30/2020, Additional history existsDiabetes: Hemoglobin A1C509/, 09/01/2024, 05/07/2024, Additional history existsMedicare Annual Wellness (AWV)602/06/2024, 05/21/2023, 04/17/2021 Influenza Vaccine (#1)611/, 01/01/2021, 02/22/2020, Additional history existsPostponed from 12/04/2024 (Patient Refused)Diabetes: Retinopathy Xwujrdejl53/26/95921706/28/2024, 06/25/2023, 12/10/2021, Additional history exists Pneumococcal Vaccine: 65+ LahtxCnjefcpww74/28/2017, 03/11/2015COVID-19 Vaccine Rqacacuvxiwr62/16/2021 Procedures Procedure NamePriorityDate/TimeAssociated DiagnosisCommentsHEMOGLOBIN E1IVbagfyb 12/26/2024 8:52 AM EDTPR ARTHROCENTESIS ASPIR&/INJ MAJOR JT/BURSA W/USRoutine 12/18/2024 10:47 AM EDT Left shoulder pain, unspecified chronicity AK ARTHROCENTESIS ASPIR&/INJ MAJOR JT/BURSA W/KDHxxqthq35/15/2025 10:46 AM EDT Left shoulder pain, unspecified chronicity DIABETIC RETINOPATHY SCREENING - OU - BOTH RHSRRadyqrv87/26/2025 8:51 AM EDT MICROALBUMIN / CREATININE URINE CCGRRSuufquh44/09/2024 Type 2 diabetes mellitus with complication (HCC) from Last 3 Months or Most Recently Relevant to Health Maintenance Results * (ABNORMAL) Hemoglobin A1c (12/26/2024 8:52 AM EDT)Specimen (Source)Anatomical Location / LateralityCollection Method / VolumeCollection TimeReceived Time BloodVenous blood specimen / Unknown Narrative Authorizing ProviderResult TypeResult StatusRamseyri Jermain Thompson NPLAB BLOOD ORDERABLES Final Result * AK ARTHROCENTESIS ASPIR&/INJ MAJOR JT/BURSA W/US (12/18/2024 10:47 AM EDT) Narrative Jessica Gipson, [facility] - 12/18/2024 10:47 AM EDT Jessica Gipson, [facility] 12/18/2024 3:39 PM L Inj/Asp: L subacromial bursa on 12/18/2024 10:47 AM Indications: pain Details: 25 G needle, ultrasound-guided Medications: 1 mL betamethasone acetate-betamethasone sodium phosphate 6 (3-3) MG/ML Consent was given by the patient. Authorizing ProviderResult TypeResult StatusBigg [facility]/BEDSIDE ORDERABLESFinal Result * AK ARTHROCENTESIS ASPIR&/INJ MAJOR JT/BURSA W/US (12/18/2024 10:46 AM EDT) Narrative Jessica Gipson, [facility] - 12/18/2024 10:46 AM EDT Jessica Gipson, [facility] 12/18/2024 3:39 PM L Inj/Asp: L glenohumeral on 12/18/2024 10:46 AM Indications: pain Details: 25 G needle, ultrasound-guided Medications: 1 mL betamethasone acetate-betamethasone sodium phosphate 6 (3-3) MG/ML Consent was given by the patient. Authorizing ProviderResult TypeResult Remington [facility]/BEDSIDE ORDERABLESFinal Result * Diabetic Retinopathy Screening - OU - Both Eyes (06/28/2024 8:51 AM EDT) Anatomical RegionLateralityModalityHeadOther Narrative Authorizing ProviderResult TypeResult StatusGerri L Rine NPOPHTH PHOTOGRAPHY Final Result * Microalbumin / creatinine, urine ratio (01/12/2024)ComponentValueRef RangeTest MethodAnalysis TimePerformed AtPathologist SignatureMICROALBUMIN, URINE40.7 QUESTALB/CREAT YSXWP308.6QUESTURINE AQJQV02LBSJLZstqvlcg (Source)Anatomical Location / LateralityCollection Method / VolumeCollection TimeReceived Time UrineUrine specimen obtained by clean catch procedure / Cxaoqta8101/12/2024 Narrative Authorizing ProviderResult TypeResult StatusGerri L Rine NPLAB URINE ORDERABLES Final ResultPerforming OrganizationAddressCity/State/ZIP CodePhone Number [facility] from Last 3 Months or Most Recently Relevant to Health Maintenance Insurance * Guarantor: Tony Starks AAccount TypeRelation to PatientDate of BirthPhone Billing AddressPersonal/HzbwrgPihf66/20/1946 [address] [address] Advance Directives TypeDate RecordedPatient RepresentativeExplanationAdvance Directives and Living Will03/07/[id number]_XCP Care Teams Team MemberRelationshipSpecialtyStart DateEnd Date Colby Whitfield DO [address] [place] [address] PCP - GeneralFamily Medicine10/14/22 Laya Thompson CLUBHOUSE ATTENDANT [address] [place] [address] PCP - O [facility]01/04/24 Laya Thompson NP [address] [place] [address] Nurse PractitionerMiravista Behavioral Health Center Medicine10/14/22
--- OUTSIDE RECORDS SUMMARY | 2025-03-08 10:26 | XMS_ITS | Encounter Summary ---
Author Organization [facility] Address [address], [address] [place] [address] Care Team Providers Care Primary Education Professor Name Role Phone Colby Whitfield DO Primary Care Provider [phone] Encounter Details DateTypeDepartmentCare Team (Latest Contact Info)Nooutkxdfsi51/25/2025bstract [facility] Radiology [address] [place] [phone] Laya Thompson, BUSINESS RISK CONSULTANT - WATER HAULER [address] [place] [phone] Social History Tobacco UseTypesPacks/DayYears UsedDateSmoking Tobacco: FormerCigarettes0.525 11/30/1981 - 11/30/2006PipeSmokeless Tobacco: FormerSnuff, ChewAlcohol Use Standard Drinks/WeekCommentsYes9 (1 standard drink = 0.6 oz pure alcohol)states occassionallyOverall Financial Resource Strain (CARDIA)AnswerDate RecordedHow hard is it for you to pay for the very basics like food, housing, medical care, and heating?Not very hard06/04/2022HQ-2AnswerDate RecordedPHQ-9 Total Score0 04/20/2022Hunger Vital SignAnswerDate RecordedWithin the past 12 months, you worried that your food would run out before you got the money to buymore.Never true06/04/2022Within the past 12 months, the food [...] InformationValueDate RecordedSex Assigned at BirthNot on fileLegal NseIgfn3605/15/2012 3:32 PM ESTGender IdentityNot on file Sexual OrientationNot on filedocumented as of this encounter Plan of Treatment Not on file documented as of this encounter Visit Diagnoses Not on filedocumented in this encounter Additional Health Concerns AssessmentNoted TimeA fall risk assessment has been completed for the patient 04/20/2022 11:06 AM ESTA Body Mass Index follow-up plan has been documented for the grkdhgr5206/04/2022 10:47 AM ESTdocumented as of this encounter Care Teams Team MemberRelationshipSpecialtyStart DateEnd Date Colby Whitfield DO [address] [place] [phone] PCP - GeneralFamily Medicine11/24/16documented as of this encounter
--- OUTSIDE RECORDS SUMMARY | 2025-03-08 10:26 | XMS_ITS | Encounter Summary ---
Author Organization [facility] Address [address], [address] [place] [address] Care Team Providers Care Special Delivery Clerk Name Role Phone Colby Whitfield DO Primary Care Provider [phone] Reason for Referral * Cardiology (Routine) - OpenSpecialtyDiagnoses / ProceduresReferred By Contact Referred To ContactCardiology Diagnoses Cardiac murmur Procedures Echo (TTE) complete (PRN contrast/bubble/strain/3D) [place] ECHO TTHRC R-T 2D W/WOM-MODE COMPL SPEC&COLR D [place] TTE W OR WO FOL WCON,DOPPLER Laya Thompson APRN - NP [address] [place] [address] Phone: tel: fax: Referral IDStatusReasonStart DateExpiration DateVisits RequestedVisits [id number] Encounter Details DateTypeDepartmentCare Team (Latest Contact Info)Ihihdslddzy42/24/2025Transcribe Orders [facility] [address] [place] [phone] Laya Thompson APRN - NP [address] [place] [address] Cardiac murmur (Primary Dx) Social History Tobacco UseTypesPacks/DayYears UsedDateSmoking Tobacco: FormerCigarettes0.525 [...] InformationValueDate RecordedSex Assigned at BirthNot on fileLegal ChoXqmq3005/15/2012 3:32 PM ESTGender IdentityNot on file Sexual OrientationNot on filedocumented as of this encounter Plan of Treatment NameTypePriorityAssociated DiagnosesOrder ScheduleEcho (TTE) complete (PRN contrast/bubble/strain/3D)CV EchocardiographyRoutine Cardiac murmur Expected: 02/26/2025, Expires: 02/26/2026documented as of this encounter Visit Diagnoses Diagnosis Cardiac murmur- Primary Undiagnosed cardiac murmurs documented in this encounter Additional Health Concerns AssessmentNoted TimeA fall risk assessment has been completed for the patient 04/20/2022 11:06 AM ESTA Body Mass Index follow-up plan has been documented for the dqdvrbw1406/04/2022 10:47 AM ESTdocumented as of this encounter Care Teams Team MemberRelationshipSpecialtyStart DateEnd Date Colby Whitfield, [address] [place], [place] [phone] PCP - GeneralFamily Medicine11/24/16documented as of this encounter
--- OUTSIDE RECORDS SUMMARY | 2025-03-08 10:26 | XMS_ITS | Encounter Summary ---
Author Organization [facility] Address [address] [place] [address] Care Team Providers Care Heel Seat Fitter Machine Name Role Phone Colby Whitfield DO Primary Care Provider [phone] Laya Thompson STEREOTYPER APPRENTICE Unavailable Laya Thompson STEREOTYPER APPRENTICE Unavailable Encounter Details DateTypeDepartmentCare Team (Latest Contact Info)Fzwmiltbwio78/24/2025Travel Social History Tobacco UseTypesPacks/DayYears UsedDateSmoking Tobacco: FormerCigarettes0.515 02/06/1991 - 02/06/2006Smokeless Tobacco: Never Comments:Last smoked: more t brennan 10 years ago Alcohol UseStandard Drinks/WeekCommentsYes1 (1 standard drink = 0.6 oz pure alcohol)I drink a beer once a zuhmJ1663 Health LiteracyAnswerDate RecordedHow often do you need [...] relatives?Once a week09/04/2024How often do you attend orthodoxy or denominational services?More than 4 times per year09/04/2024Do you belong to any clubs or organizations such as orthodoxy groups, unions, fraEye Phone or athletic groups, or school groups?Yes09/04/2024How often [...] very hard 09/04/2024PHQ-2AnswerDate RecordedPatient Health Questionnaire-2 Score0 05/08/2024Fin[facility] [place] of Occupational Health - Occupational Stress QuestionnaireAnswerDate [...] you engage in exercise at this level?Patient medgxygv18/02/2025Hunger Vital SignAnswerDate RecordedWithin the past 12 months, [...] steady place to sleep or slept in essexelter (including now)?No01/18/2023Housing Stability Vital SignAnswerDate RecordedIn the [...] InformationValueDate RecordedSex Assigned at BirthNot on fileLegal AkrIatd6306/17/2022 6:52 PM EDT Gender IdentityNot on fileSexual OrientationNot on filedocumented as of this encounter Plan of Treatment DateTypeDepartmentCare Team (Latest Contact Info)Japqqcmmsvh47/16/2026 11:00 AM ESTOffice Visit [facility] [place] [facility] [address] [place] [address] Nicol Ballard, PAPI [address] [place] [address] 05/22/2025 10:30 AM ESTOffice Visit [facility] [place] [facility] [address] [place] [address] Laya Thompson, STEREOTYPER APPRENTICE [address] [place] [address] documented as of this encounter Visit Diagnoses Not on filedocumented in this encounter Care Teams Team MemberRelationshipSpecialtyStart DateEnd Date Colby Whitfield DO [address] [place] [address] PCP - GeneralFamily Medicine10/14/22 Laya Thompson NP [address] [place] [address] PCP - [facility]01/04/24 Laya Thompson, STEREOTYPER APPRENTICE [address] [place] [address] Nurse PractitionerFamily Medicine10/14/22documented as of this encounter
--- OUTSIDE RECORDS SUMMARY | 2025-03-08 10:26 | XMS_ITS | Encounter Summary ---
Author Organization [facility] Address [address] [place] [address] Care Team Providers Care Business Relationship Manager Name Role Phone Roseann, Colby Pearl DO Primary Care Provider Laya Thompson COMMUNITY HEALTH CONSULTANT Unavailable Laya Thompson COMMUNITY HEALTH CONSULTANT Unavailable Encounter Details DateTypeDepartmentCare Team (Latest Contact Info)Zmyrrphiyff16/21/2025bstract [facility] [address] [place] [address] Laya Thompson, COMMUNITY HEALTH CONSULTANT [address] [place] [address] Social History Tobacco UseTypesPacks/DayYears UsedDateSmoking Tobacco: FormerCigarettes0.515 02/06/1991 - 02/06/2006Smokeless Tobacco: Never Comments:Last smoked: more t brennan 10 years ago Alcohol UseStandard Drinks/WeekCommentsYes1 (1 standard drink = 0.6 oz pure alcohol)I drink a beer once a [id number] Health LiteracyAnswerDate RecordedHow often do you need [...] relatives?Once a week09/04/2024How often do you attend quaker or hindu services?More than 4 times per year09/04/2024Do you belong to any clubs or organizations such as quaker groups, unions, fraternal or athletic groups, or [...] Health Questionnaire-2 Score0 05/08/2024Fin[facility] [place] of Occupational Health - Occupational Stress QuestionnaireAnswerDate [...] you engage in exercise at this level?Patient uifptirj52/02/2025Hunger Vital SignAnswerDate RecordedWithin the past 12 months, [...] steady place to sleep or slept in [facility] (including now)?No01/18/2023Housing Stability Vital SignAnswerDate RecordedIn the last 12 months, was there a time when you were not able to pay the mortgage or rent on time?Patient declined 09/04/2024In the past 12 months, how many times have you moved where you were living?t any time in the past 12 months, were you homeless or living in a assisted (including now)?No09/04/2024Sex and Gender InformationValueDate RecordedSex Assigned at BirthNot on fileLegal AttHlyt4706/17/2022 6:52 PM EDT Gender IdentityNot on fileSexual OrientationNot on filedocumented as of this encounter Plan of Treatment DateTypeDepartmentCare Team (Latest Contact Info)Wohxblnxhke62/16/2026 11:00 AM ESTOffice Visit [facility] [facility] [address] [place] [address] Nicol Ballard, PA [address] [place] [address] 05/22/2025 10:30 AM ESTOffice Visit [facility] [address] [place] [address] Laya Thompson, COMMUNITY HEALTH CONSULTANT [address] [place] [address] documented as of this encounter Visit Diagnoses Not on filedocumented in this encounter Care Teams Team MemberRelationshipSpecialtyStart DateEnd Date Colby Whitfield, [address] [place] [address] PCP - GeneralFamily Medicine10/14/22 Laya Thompson, COMMUNITY HEALTH CONSULTANT [address] [place] [address] PCP - [facility]01/04/24 Laya Thompson, COMMUNITY HEALTH CONSULTANT [address] [place] [address] Nurse PractitionerFamily Medicine10/14/22documented as of this encounter
--- OUTSIDE RECORDS SUMMARY | 2025-03-08 10:26 | XMS_ITS | Encounter Summary ---
Author Organization [facility] Address [address] [place] [address] Care Team Providers Care Hoop Coiler Name Role Phone Colby Whitfield DO Primary Care Provider [phone] Laya Thompson MARKET CONSULTANT Unavailable Laya Thompson MARKET CONSULTANT Unavailable Encounter Details DateTypeDepartmentCare Team (Latest Contact Info)Uywgtvzzfai85/23/2025Travel Social History Tobacco UseTypesPacks/DayYears UsedDateSmoking Tobacco: FormerCigarettes0.515 02/06/1991 - 02/06/2006Smokeless Tobacco: Never Comments:Last smoked: more t brennan 10 years ago Alcohol UseStandard Drinks/WeekCommentsYes1 (1 standard drink = 0.6 oz pure alcohol)I drink a beer once a [id number] Health LiteracyAnswerDate RecordedHow often do you need [...] relatives?Once a week09/04/2024How often do you attend yazidism or anabaptist services?More than 4 times per year09/04/2024Do you belong to any clubs or organizations such as yazidism groups, unions, fraLudi labs or athletic groups, or school groups?Yes09/04/2024How often [...] very hard 09/04/2024PHQ-2AnswerDate RecordedPatient Health Questionnaire-2 Score0 05/08/2024[facility] [place] [facility] - Occupational Stress QuestionnaireAnswerDate [...] you engage in exercise at this level?Patient mkevyitu65/02/2025Hunger Vital SignAnswerDate RecordedWithin the past 12 months, [...] steady place to sleep or slept in [place] (including now)?No01/18/2023Housing Stability Vital SignAnswerDate RecordedIn the last 12 months, was there a time when you were not able to pay the mortgage or rent on time?Patient declined 09/04/2024In the past 12 months, how many times have you moved where you were living?t any time in the past 12 months, were you homeless or living in a jail (including now)?No09/04/2024Sex and Gender InformationValueDate RecordedSex Assigned at BirthNot on fileLegal PmgVrrl3906/17/2022 6:52 PM EDT Gender IdentityNot on fileSexual OrientationNot on filedocumented as of this encounter Plan of Treatment DateTypeDepartmentCare Team (Latest Contact Info)Rkwhtuiavfp48/16/2026 11:00 AM ESTOffice Visit [facility] [address] [place] [address] Niocl Ballard, PAPI [address] [place] [address] 05/22/2025 10:30 AM ESTOffice Visit [facility] [address] [place] [address] Laya Thompson, MARKET CONSULTANT [address] [place] [address] documented as of this encounter Visit Diagnoses Not on filedocumented in this encounter Care Teams Team MemberRelationshipSpecialtyStart DateEnd Date Colby Whitfield DO [address] [place] [address] PCP - GeneralFamily Medicine10/14/22 Laya Thompson NP [address] [place] [address] PCP - ACO Reach01/04/24 Laya Thompson, MARKET CONSULTANT [address] [place] [address] Nurse PractitionerFamily Medicine10/14/22documented as of this encounter
--- OUTSIDE RECORDS SUMMARY | 2025-03-08 10:26 | XMS_ITS | Encounter Summary ---
Author Organization [facility] Address [address] [place] [address] Care Team Providers Care Cable Splicer Helper Name Role Phone Colby Whitfield DO Primary Care Provider Laya Thompson HEATING PLANT SUPERINTENDENT Unavailable Laya Thompson HEATING PLANT SUPERINTENDENT Unavailable Encounter Details DateTypeDepartmentCare Team (Latest Contact Info)Yjrrhrahgai03/24/2025Bamboo flowsheet [facility] [address] [place] [id number] Laya Thompson, HEATING PLANT SUPERINTENDENT [address] [place] [address] Social History Tobacco UseTypesPacks/DayYears UsedDateSmoking Tobacco: FormerCigarettes0.515 02/06/1991 - 02/06/2006Smokeless Tobacco: Never Comments:Last smoked: more t brennan 10 years ago Alcohol UseStandard Drinks/WeekCommentsYes1 (1 standard drink = 0.6 oz pure alcohol)I drink a beer once a [id number] Health LiteracyAnswerDate RecordedHow often do you need [...] relatives?Once a week09/04/2024How often do you attend protestant or mormon services?More than 4 times per year09/04/2024Do you belong to any clubs or organizations such as protestant groups, unions, fraternal or athletic groups, or [...] Questionnaire-2 Score0 05/08/2024[facility] [place] [facility] - Occupational Stress QuestionnaireAnswerDate [...] you engage in exercise at this level?Patient hhteemij94/02/2025Hunger Vital SignAnswerDate RecordedWithin the past 12 months, [...] steady place to sleep or slept in [place] (including now)?No01/18/2023Housing Stability Vital SignAnswerDate RecordedIn the [...] InformationValueDate RecordedSex Assigned at BirthNot on fileLegal SaiLiiu4806/17/2022 6:52 PM EDT Gender IdentityNot on fileSexual OrientationNot on filedocumented as of this encounter Plan of Treatment DateTypeDepartmentCare Team (Latest Contact Info)Kmavlieyoic49/16/2026 11:00 AM ESTOffice Visit [facility] [address] [place] [address] Nicol Ballard, PA [address] [place] [address] 05/22/2025 10:30 AM ESTOffice Visit [facility] [address] [place] [address] Laya Thompson, HEATING PLANT SUPERINTENDENT [address] [place] [address] documented as of this encounter Visit Diagnoses Not on filedocumented in this encounter Care Teams Team MemberRelationshipSpecialtyStart DateEnd Date Colby Whitfield DO [address] [place] [address] PCP - GeneralFamily Medicine10/14/22 Laya Thompson, HEATING PLANT SUPERINTENDENT [address] [place] [address] PCP - ACO Reach01/04/24 Laya Thompson, HEATING PLANT SUPERINTENDENT [address] [place] [address] Nurse PractitionerFamily Medicine10/14/22documented as of this encounter
--- OUTSIDE RECORDS SUMMARY | 2025-03-08 10:27 | XMS_ITS | CCD ---
Author Organization [facility] Care Team Providers Care Picc Nurse Name Role Phone Daniel Pop Primary Care Provider [phone] KESHAWN, DR OTF Villator[employer] Unavailable JOO, [...] Daniel Pop DO Primary Care Provider Jay ELECTROPLATING SALES REPRESENTATIVE, Laya L Unavailable Jay ELECTROPLATING SALES REPRESENTATIVE, Laya L Unavailable Daniel Pop DO Unavailable [...] 30 mg oral tablet (20 sources)Opioid AgonistStart: 88-40-3212jpkgayambvgvn-codeine (Tylenol w/ Codeine #3) 300-30 MG tablet 11/10/2024 ActiveStart: 04-12-2024 End: 84-87-7093irpzzsmtocmjf-codeine (Tylenol w/ Codeine #3) 300-30 MG tablet 04/12/2024 09/05/2024 Discontinued (Therapy completed)acetaminophen 325 mg / oxyCODONE hydrochloride 5 mg oral tablet (2 sources)Opioid AgonistStart: 05-09-2020 End: 78-51-0815todj 1-2 tablets by mouth every six hours as needed for pain oxyCODONE-acetaminophen (PERCOCET) 5-325 MG per tablet Indications: Rotator cuff syndrome of right shoulder Take 1-2 tablets by mouth every 6 hours as needed for Pain for up to 3 days. 40 tablet 0 05/09/2020 05/12/2020 Activeamoxicillin 500 mg oral capsule (16 sources)Penicillin-class AntibacterialStart: 02-44-4643mnlzsfujbmi (Amoxil) 500 MG capsule Take 500 mg [...] oral tablet (20 sources)beta-Adrenergic BlockerStart: 07-19-2023 End: 24-22-8207sptg 1 tablet by mouth once dailyatenolol (Tenormin) 50 MG tablet Indications: Primary hypertension Take 1 tablet (50 mg) by mouth Daily 90 tablet 1 01/15/2025 Activetake 1 tablet by mouth once dailyatenolol (TENORMIN) 50 MG tablet Take 50 mg by mouth daily. 0 ActiveBexagliflozin (Brenzavvy) 20 MG tablet (20 sources)Start: 10-32-2127pjft 1 tablet by mouth once dailyBexagliflozin (Brenzavvy) 20 MG tablet Indications: Type 2 diabetes mellitus with complication (HCC) Take 20 mg by mouth Daily 90 tablet 3 01/03/2025 ActiveStart: 01-17-2024 End: 34-42-5624lrpu 1 tablet by mouth once dailyBexagliflozin (Brenzavvy) 20 MG tablet Indications: Type 2 diabetes mellitus with complication (HCC) Take 20 mg by mouth Daily 90 tablet 3 01/17/2024 01/03/2025 Discontinued (Reorder)Start: 62-84-2260maev 1 tablet by mouth once dailyBexagliflozin (Brenzavvy) 20 MG tablet Indications: Type 2 diabetes mellitus with complication (HCC) Take 20 mg by mouth Daily 90 tablet 3 01/17/2024 ActiveStart: 78-48-5633iwrr 1 tablet by mouth once dailyBexagliflozin (Brenzavvy) 20 MG tablet Indications: Type 2 diabetes mellitus with complication (CMS/HCC) Take 20 mg by mouth Daily 90 tablet 3 01/17/2024 Activecalcium chloride 0.0014 meq/ml / potassium chloride 0.004 meq/ml / sodium chloride 0.103 meq/ml / sodium lactate 0.028 meq/ml injectable solution (1 source)Start: 14-18-4217ewecrfsa ringers infusionCALCIUM-VITAMIN D PO (20 sources)CALCIUM-VITAMIN D PO Take by mouth 0 Activecholecalciferol 0.05 mg oral tablet (20 sources)Vitamin Dcholecalciferol (Vitamin D-3) 50 MCG (1999 UT) tablet 1 (one) time each day at the same time Activedocusate sodium 100 mg oral capsule (18 sources)Start: 96-17-9531pfpc 1 capsule by mouth twice dailydocusate sodium (COLACE) 100 MG capsule Take 1 capsule by mouth 2 times daily 40 capsule 0 05/09/2020 Activefamotidine 20 mg oral tablet (20 sources)Histamine-2 Receptor AntagonistStart: 06-21-2023 End: 63-71-5588dlam 1 tablet by mouth in the morningfamotidine (Pepcid) 20 MG tablet Indications: Chronic GERD Take 1 tablet (20 mg) by mouth in the morning and 1 tablet (20 mg) before bedtime. 180 tablet 3 06/05/2024 ActiveStart: 55-05-7762jimntplibf (PEPCID) 20 MG tabletfluticasone propionate 0.05 mg/actuat metered dose nasal spray (20 sources)CorticosteroidStart: 12-09-2023 End: 73-12-8818stgs 1 spray(s) nasal route once dailyfluticasone (Flonase) 50 MCG/ACT nasal spray Indications: Environmental and seasonal allergies Administer 1 spray into each nostril Daily Shake gently. Before first use, prime pump. After use, clean tip and replace cap. 48 mL 3 12/18/2024 ActiveStart: 01-07-2023 End: 32-45-9605krcq 1 spray(s) nasal route twice dailyfluticasone (Flonase) 50 MCG/ACT nasal spray Indications: Environmental and seasonal allergies SPRAY ONE SPRAY INTO EACH NOSTRIL TWO TIMES DAILY 48 mL 3 01/07/2023 12/09/2023 Discontinued (Reorder)FLUTICASONE PROPIONATE, NASAL, NA by Nasal route 0 Active hydroCHLOROthiazide 25 mg oral tablet (20 sources)Thiazide DiureticStart: 04-20-2023 End: 44-11-6596llik 1 tablet by mouth once dailyhydroCHLOROthiazide (HYDRODiuril) 25 MG tablet Indications: Primary hypertension Take 1 tablet (25 m g) by mouth Daily 90 tablet 3 01/03/2025 04/03/2025 Active3 ml insulin aspart, human 100 unt/ml pen injector (6 sources)Insulin AnalogStart: 80-58-2447yudojyl aspart FlexPen (NovoLOG) 100 UNIT/ML pen Indications: Type 2 diabetes mellitus with complication (HCC) 5 units Once daily before evening meal 1 each 2 01/05/2025 ActiveStart: 01-05-2025 End: 18-98-0391rcjhgmk aspart FlexPen (NovoLOG) 100 UNIT/ML pen Indications: Type 2 diabetes mellitus with complication (HCC) Once daily before evening meal 1 each 2 01/05/2025 01/05/2025 Discontinued (Reorder)3 ml insulin degludec 200 unt/ml pen injector (20 sources)Insulin AnalogStart: 09-24-2023 End: 92-08-6630fxmovg 34 [IU] by subcutaneous injection in the morninginsulin degludec (Tresiba FlexTouch) 200 UNIT/ML injection Indications: Type 2 diabetes mellitus with other specified complication, unspecified whether senior living insulin use (HCC) Inject 34 Units under the skin in the morning and 34 Units before bedtime. 27 mL 3 05/21/2024 ActiveInsulin Degludec (TRESIBA SC) Inject 60 Units into the skin nightly 0 Activeinsulin lispro 100 unt/ml injectable solution (3 sources)Insulin AnalogStart: 01-03-2025 End: 78-89-9640Uredwux Lispro 100 UNIT/ML solution Indications: Type 2 diabetes mellitus with complication (HCC) Inject 5 Units as directed in the evening. Take before meals 10 mL 1 01/03/2025 01/05/2025 Discontinued (Therapy completed) lisinopril 20 mg oral tablet (20 sources)Angiotensin Converting Enzyme InhibitorStart: 05-24-2023 End: 11-44-1567bjlo 1 tablet by mouth in the morninglisinopril 20 MG tablet Indications: Primary hypertension Take 1 tablet (20 mg) by mouth in the morning and 1 tablet (20 mg) before bedtime. 180 tablet 1 12/18/2024 Activetake 2 tablets by mouth twice dailylisinopril (PRINIVIL;ZESTRIL) 10 MG tablet Take 20 mg by mouth 2 times daily 0 Activeloratadine 10 mg oral tablet (20 sources)Start: 03-02-2023 End: 74-64-8874spvp 1 tablet by mouth once dailyloratadine (Claritin) 10 MG tablet Indications: Environmental and seasonal allergies Take 1 tablet (10 mg) by mouth Daily 90 tablet 3 08/30/2024 ActiveLORATADINE PO Take 10 mg by mouth 0 Activemagnesium sulfate 0.0277 meq/ml / potassium sulfate 0.0374 meq/ml / sodium sulfate 0.257 meq/ml oral solution (1 source)Start: 50-75-5122fovzko-potassium-mag sulfate (SUPREP BOWEL PREP KIT) 17.5-3.13-1.6 GM/177ML SOLN solution Use as directed. 1 each 0 04/20/2022 Active Melatonin (1 source)MELATONIN PO Take by mouth 0 Activemelatonin 3 mg / vitamin b6 10 mg oral tablet (20 sources)Melatonin 3-10 MG tablet Ustknr56 hr metFORMIN hydrochloride 1000 mg / SITagliptin 50 mg extended release oral tablet (1 source)Biguanide, Dipeptidyl Peptidase 4 InhibitorStart: 31-12-9318TQWJMIS XR 50-1000 MG TB24 per extended release [...] capsule (20 sources)Proton Pump InhibitorStart: 12-23-2022 End: 20-55-9906iwix 1 capsule by mouth once dailyomeprazole (PriLOSEC) [...] at 1438, Post-op oxyCODONE (1 source)Opioid AgonistStart: 71-93-7888ileITKDHO (ROXICODONE) immediate release tablet 5 mgraNITIdine 150 mg oral capsule (20 sources)Histamine-2 Receptor Antagonisttake 2 capsules by mouth once daily as neededranitidine (ZANTAC) 150 MG capsule Take 300 mg by mouth daily as needed 0 Activerosuvastatin calcium 10 mg oral tablet (7 sources)HMG-CoA Reductase InhibitorStart: 01-03-2025 End: 42-10-0520dbgv 1 tablet by mouth once dailyrosuvastatin (Crestor) 10 MG tablet Indications: Mixed hyperlipidemia Take 1 tablet (10 mg) by mouth Daily 30 tablet 1 01/03/2025 07/02/2025 ActiveSITagliptin 100 mg oral tablet (20 sources)Dipeptidyl Peptidase 4 InhibitorStart: 09-17-2023 End: 39-85-6893hhtv 1 tablet by mouth once dailySITagliptin (Januvia) [...] dose on Reny 05/09/20 at 2100, Post-opStart: 04-33-1877uorj 10 mL intravenous route once10 mL, Intravenous, PRN, Line Care, Starting Reny 05/09/20 at 1438 After every IV line use Post-opStart: 39-56-5216lxxwiv chloride flush 0.9 % injection 10 mLZinc (1 source)ZINC PO Take by mouth 0 Activezinc gluconate 30 mg oral tablet (20 sources)zinc 30 MG tablet 1 (one) time each day at the same time Active Completed/Discontinued Medications MedicationDrug Class(es)DatesSig (Normalized)Sig (Original)atorvastatin 40 mg oral tablet (20 sources)HMG-CoA Reductase InhibitorStart: 07-13-2023 End: 77-52-6563xdom 1 tablet by mouth once dailyatorvastatin (Lipitor) [...] at 1047, For 1 doseStart: 12-18-2024 End: 52-18-1390tupnldlcvknuu acetate-betamethasone sodium phosphate (Celestone) injection 1 mLStart: 05-11-2024 End: mL, Intra-articular, Once PRN Procedure, Starting on Wed05/11/24 at 1535, For 1 doseStart: 05-11-2024 End: 66-89-1253wnghunmjgwpsg acetate-betamethasone sodium phosphate (Celestone) injection 1 mLceFAZolin 2000 mg injection (1 source)Cephalosporin AntibacterialStart: 05-09-2020 End: 03-13-0585ucVVMkjpf (ANCEF) 2000 mg in dextrose 3 % 50 mL IVPB (duplex) dapagliflozin 10 mg oral tablet (8 sources)Sodium-Glucose Cotransporter 2 InhibitorStart: 01-17-2024 End: 34-86-8914xlgf 1 tablet by mouth once dailydapagliflozin (Farxiga) 10 MG Indications: Type 2 diabetes mellitus with complication (CMS/HCC) Take 1 tablet (10 mg) by mouth Daily 28 tablet 01/17/2024 04/24/2024 Discontinuedinsulin detemir 100 unt/ml injectable solution (18 sources)Insulin Analog End: 35-60-8667fgorfia detemir (LEVEMIR) 100 UNIT/ML injection Inject 52 Units into the skin nightly 0 05/09/2020 Discontinued (LIST CLEANUP)metFORMIN hydrochloride 500 mg oral tablet (18 sources)Biguanide End: 19-64-7378exoo 2 tablets by mouth twice daily at mealtimemetformin (GLUCOPHAGE) 500 MG tablet Take 1,000 mg by mouth 2 times daily (with meals). 0 05/09/2020 Discontinued (Therapy completed)vitamin b6 100 mg oral tablet (20 sources) End: 66-48-0558Dhsbtconkw HCl (Vitamin B6) 100 MG tablet 1 (one) time each day at the same time. 05/11/2024 Discontinued (Therapy completed)take 2 tablets by mouth once dailyvitamin B-6 (PYRIDOXINE) 50 MG tablet Take 100 mg by mouth daily 0 Active Problems Active Problems Problem ClassificationProblemDateDocumented DateEpisodic/ChronicChronic kidney disease (20 sources)Chronic kidney disease stage 3A ; Translations: [Stage 3a chronic kidney disease (HCC)]Onset: 10-19-2022 Resolved: 834418-45-5227NohirxyBfcslgso mellitus with complications (2 sources)Hyperglycemia due to type 2 diabetes mellitus; Translations: [Type 2 diabetes mellitus with hyperglycemia]19-33-0018KrdrxzpCgrczapd mellitus without complication (20 sources)Type 2 diabetes mellitus; Translations: [Type 2 diabetes mellitus with unspecified complications]Onset: 11-09-2016 Resolved: 671338-59-0744VyzixedAiegvjwl mellitus without complication (1 source)Increased glucose level; Translations: [Other abnormal glucose] 99-85-6853ZtoybppzPhdocihvd of lipid metabolism (20 sources)Hypercholesterolemia; Translations: [Pure hypercholesterolemia, unspecified]Onset: 11-09-2016 Resolved: 384898-76-2375EvdfxwhObigsfnisi disorders (20 sources)Gastroesophageal reflux disease without esophagitis; Translations: [Gastro-esophageal reflux disease without esophagitis]Onset: 11-09-2016 Resolved: 179353-32-8628UqewgbvTxcjtsxoz hypertension (20 sources)Hypertensive disorder; Translations: [Essential (primary) hypertension]Onset: 139371-43-7518ZztknygYmyezedqbzy deficiencies (20 sources)Vitamin D deficiency; Translations: [Vitamin D deficiency, unspecified]Onset: 574065-76-9155IsbchpvBnxon aftercare (1 source)former hand (current) use of insulin; Translations: [BARTENDER CURRENT USE OF INSULIN]Onset: 81-48-4289KkojsfvhFxojj and unspecified benign neoplasm (2 sources)Melanocytic nevus of trunk; Translations: [Melanocytic nevi of trunk] 89-00-6676OnudxmvxQdbpb circulatory disease (1 source)Other specified symptoms and signs involving the circulatory and respiratory systems; Translations:[Other specified symptoms and signs involving the circulatory and respiratory systems]Onset: 16-34-8095VkjhjhmkRgeaz connective tissue disease (1 source)Cramp and spasm; Translations: [Cramp and spasm]Onset: 06-15-2023 EpisodicOther connective tissue disease (2 sources)Impingement syndrome of left shoulder region; Translations: [Impingement syndrome of left shoulder]70-48-9250HwjllhirNwjfd connective tissue disease (1 source)Impingement syndrome of right shoulder region; Translations: [Impingement syndrome of right shoulder]Other connective tissue disease (17 sources)Right rotator cuff syndrome; Translations: [Rotator cuff syndrome of right shoulder]Onset: Other inflammatory condition of skin (2 sources)Lichen simplex chronicus; Translations: [Lichen simplex chronicus] 42-63-1390UdriziadYbijv nervous system disorders (1 source)Other chronic pain; Translations: [OTHER CHRONIC PAIN]Onset: 32-11-0674OawqykzNlxum non-epithelial cancer of skin (2 sources)History of malignant basal cell neoplasm of skin; Translations: [Personal history of other malignant neoplasm of skin]22-56-4565OtuctzpuXgnpw non-traumatic joint disorders (20 sources)Arthropathy of multiple joints; Translations: [Arthropathy, unspecified]Onset: 772232-73-1048EccecydPcdgw non-traumatic joint disorders (8 sources)Polyarthropathy; Translations: [Arthropathy, unspecified]Onset: 824074-87-8837QxtughkGxlmg non-traumatic joint disorders (4 sources)Pain in left hip; Translations: [PAIN IN LEFT HIP]Onset: 03-19-2022 EpisodicOther non-traumatic joint disorders (15 sources)Pain in left shoulder; Translations: [Pain in joint, shoulder region]Onset: 01-55-2507KuzjncvmJgoxk non-traumatic joint disorders (2 sources)Chronic pain of left upper limb; Translations: [Pain in left shoulder]97-78-0168FmiwomjqOkist non-traumatic joint disorders (1 source)Arthritis of joint of right shoulder region; Translations: [Arthritis of right shoulder region]Other skin disorders (6 sources)Actinic keratosis; Translations: [Actinic keratosis]01-10-2024 EpisodicOther skin disorders (2 sources)Seborrheic keratosis; Translations: [Other seborrheic keratosis] 57-71-9020DncqhtdjCuxay upper respiratory disease (20 sources)Allergic disposition; Translations: [Other allergic rhinitis]Onset: 343120-49-3334RjacdbzCsbytgoa codes; unclassified (20 sources)Dependence on continuous positive airway pressure ventilation; Translations: [Dependence on other enabling machines and devices]Onset: 905940-45-8547BgqltgsBlapincr codes; unclassified (20 sources)Obstructive sleep apnea syndrome; Translations: [Obstructive sleep apnea (adult) (pediatric)]Onset: 109450-31-9168YdimkvpSgytmbfbkts; intervertebral disc disorders; other back problems (20 sources)Sacroiliitis, not elsewhere classified; Translations: [Degeneration of lumbar intervertebral disc]Onset: 93-80-8796AofbsvyQjevutpsgaz; intervertebral disc disorders; other back problems (5 sources)Muscle spasm of back; Translations: [Sacrococcygeal disorders, not elsewhere classified]Onset: 77-82-8730KtzwpxbwYfzmypl and strains (2 sources)Injury of superior glenoid labrum of shoulder joint; Translations: [Superior glenoid labrum lesion of left shoulder, initial encounter]04-24-2024 EpisodicUnclassified (1 source)Patient encounter status; Translations: [Pre-op chest exam] Unclassified (1 source)LOW BACK PAIN, UNSPECIFIED; Translations: [LOW BACK PAIN, UNSPECIFIED] Onset: 98-68-8396Dwyvxmrlmqvq (8 sources)Left shoulder pain, unspecified gntjjnksyh33-90-1837 Past or Other Problems Problem ClassificationProblemDateDocumented DateEpisodic/ChronicBiliary tract disease (20 sources)Biliary colic; Translations: [Calculus of bile duct without cholangitis or cholecystitis without obstruction]Onset: 11-17-2013 Resolved: 522001-48-0416GwdyvvnwTayhmbsd (20 sources)Bilateral age-related cataract; Translations: [Unspecified age- related cataract]Onset: 10-19-2022 Resolved: 660342-52-6704DycxcegRmacjgpro and duodenitis (20 sources)Duodenitis; Translations: [Duodenitis without bleeding]Onset: 10-19-2022 Resolved: 907124-06-9728MumfcifzTjebapgnkvkwtp (20 sources)Primary osteoarthritis, left shoulder; Translations: [Arthritis of right acromioclavicular joint]Onset: 07-28-2021 Resolved: 644239-46-9566ZzzvrsmLdkyc and unspecified benign neoplasm (2 sources)Senile angioma; Translations: [Hemangioma of skin and subcutaneous tissue]07-95-9316HowlztdsSanls connective tissue disease (20 sources)Right rotator cuff syndrome; Translations: [Unspecified rotator cuff tear or rupture of right shoulder, not specified as traumatic]Onset: 05-09-2020 Resolved: 096982-53-7524BmzhcxqhYtttj connective tissue disease (1 source)Other shoulder lesions, left shoulder; Translations: [OTHER SHOULDER LESIONS LT SHOULDER]Onset: 80-53-5870YqwnndtdYmsrk connective tissue disease (20 sources)Nontraumatic rotator cuff tear; Translations: [Unspecified rotator cuff tear or rupture of right shoulder, not specified as traumatic]Onset: 10-19-2022 Resolved: 848841-49-1201EnoezgaxCjxpt connective tissue disease (20 sources)Tear of right rotator cuff; Translations: [Unspecified rotator cuff tear or rupture of right shoulder, not specified as traumatic]Onset: 10-19-2022 Resolved: 521900-97-1115IqiqweknKhtqb gastrointestinal disorders (20 sources)Swallowing finding; Translations: [Dysphagia, unspecified]Onset: 10-19-2022 Resolved: 796921-41-9344XemofepoXkpqz male genital disorders (20 sources)Male erectile dysfunction, unspecified; Translations: [Impotence of organic origin]Onset: 10-19-2022 Resolved: 860233-95-2288LzgfoeyVjrhz nervous system disorders (20 sources)Carpal tunnel syndrome of left wrist; Translations: [Carpal tunnel syndrome, left upper limb]Onset: 10-19-2022 Resolved: 186186-73-2759CkoemqnRpeqs nutritional; endocrine; and metabolic disorders (20 sources)Hypomagnesemia; Translations: [Hypomagnesemia]Onset: 10-19-2022 Resolved: 502593-49-6994AciqlhdVggqjewc codes; unclassified (20 sources)Sleep apnea; Translations: [Sleep apnea, unspecified]Onset: 11-09-2016 Resolved: 734032-27-4273Hgmdrla Results Test NameValueInterpretationReference RangeFamanning regional healthcare centerNo Panel Informationon 33-94-7786Pxbcemm Kaufman, [facility] 12/18/2024 3:39 PM L Inj/Asp: L subacromial bursa on 12/18/2024 10:47 AM Indications: pain Details: 25 G needle, ultrasound-guided Medications: 1 mL betamethasone acetate-betamethasone sodium phosphate 6 (3-3) MG/ML Consent was given by the patient. [facility] ASAEL 12/18/2024 3:39 PM L Inj/Asp: L glenohumeral on 12/18/2024 10:46 AM Indications: pain Details: 25 G needle, ultrasound-guided Medications: 1 mL betamethasone acetate-betamethasone sodium phosphate 6 (3-3) MG/ML Consent was given by the patient. [facility] Shoulder - left 2 Viewson 74-33-7051Uivqkfp Result: X-rays of the left shoulder Grashey [...] type 2 acromion. Visualized lung molina are clear.[facility] Panel Informationon 52-49-6682Sbyygzf Kaufman, RAMAKRISHNAT 05/13/2024 10:59 PM L Inj/Asp: L subacromial bursa on 05/11/2024 3:35 PM Indications: pain Details: 25 G needle, ultrasound-guided Medications: 1 mL betamethasone acetate-betamethasone sodium phosphate 6 (3-3) MG/ML Consent was given by the patient. [facility] CenterMelelisabeth Gipson, ARRT 05/13/2024 10:59 PM L Inj/Asp: L glenohumeral on 05/11/2024 3:34 PM Indications: pain Details: 25 G needle, ultrasound-guided Medications: 1 mL betamethasone acetate-betamethasone sodium phosphate 6 (3-3) MG/ML Consent was given by the patient. [facility] CenterXR Should[facility] - left 2 Viewson 10-59-8636Hyjrxbwrp Study observation (narrative)[facility] Panel Informationon 04-14-2024 [facility] InformationOrdered By: Birgit Hernandez on 20-99-4929ICIRSaint John's Hospital Panel Informationon 51-26-8523HCBDSullivan County Memorial HospitalXR CERVICAL SPINE (4-5 VIEWS)on 86-29-8113QU CERVICAL SPINE (4-5 VIEWS)EXAM: XR CERVICAL SPINE (4-5 VIEWS) HISTORY: Left shoulder pain, unspecified chronicity COMPARISON: None. IMPRESSION: FINDINGS/IMPRESSION: 1. Early anterior osteophyte formation at C5-C6, normal for age. 2. Intervertebral foramina patent. 3. Odontoid normal. 4. Minimal diffuse facet degenerative changes for age. Interpreted by: Cuba Noonan Jr., MD Signed by: Cuba Noonan Jr., MD 03/01/23 Final resultNoGrand Lake Joint Township District Memorial HospitalXR SHOULDER LEFT (MIN 2 VIEWS)on 08-93-5128HV SHOULDER LEFT (MIN 2 VIEWS)EXAM: XR SHOULDER [...] Cuba Noonan Jr., MD 03/01/23 Final resultNormalMercy Nesh[facility] [address] 50-98-6166Obtxvo Kgis87LIQ BON [employer] Work Phone: P Nvzc23jkvpuukZXH [employer] Phone: P-R Vwqkmova397 [facility] [employer] Phone: Q-T Jfjadofc552 [facility] [employer] Phone: QRS Anljhwly15 [facility] [employer] Phone: QTc Calculation (Bazett)396 [facility] [employer] Phone: R Kcuc11qtiucgiCVZ [employer] Phone: T Spvk24amiwdftHVOArtoo Phone: Ventricular Epfx96KPYZJN [employer] Phone: Normal sinus rhythm Minimal voltage criteria for LVH, may be normal variant ( Sokolow-Ash[place] ) Borderline ECGMHPN [facility] Brian Pierre MD - 04/20/2022 Normal sinus rhythm Minimal voltage criteria for LVH, may be normal variant ( Sokolow-[place] ) Borderline ECG BON [employer] Phone: [facility] [employer] Phone: pOINT OF CARE GLUCOSEon 56-50-3239Dcrfoiu [Mass/Vol] 177 mg/dLCritically rood96-729TewOhiohealth Hardin Memorial HospitalComment on above:Performed By: #### POCGLUC #### [facility] [address] [place] [address] Dr. Spencer Diaz-19on 25-83-2731NNMZ-CoV-2, RapidNot DetectedNot Detected CloudEngine Ernest, KYComment on above: Rapid NAAT: The specimen [...] management decisions. Fact sheet for Healthcare Providers: https://www.fda.gov/media/884758/download Fact sheet for Patients: https://www.fda.gov/media/276433/download Methodology: Isothermal Nucleic Acid Amplification Source.THROATEast [facility], KYGlucose, Whole Bloodon 28-77-3521Grlcnwt [Mass/Vol]83 mg/dL65 - 99 mg/dLEast [facility], KYGlucose [Mass/Vol]99 mg/dL65 - 99 mg/dLEast [facility], KYOtheron 25-06-7365IMNI-CoV-2MUniversity Hospitals [facility], [place] Basic Metabolic Panelon 90-28-1451Kqmpm gap [Moles/Vol]9 mmol/L9 - 17 mmol/L [facility], KYBun/Cre Nlqxt63ZdxdeEast [facility], KYCalcium [Mass/Vol]10.6 mg/dLHigh8.6 - 10.4 mg/dLEast [facility], KYChloride [Moles/Vol]99 mmol/L98 - 107 mmol/LMWVUMedicine Harrison Community Hospital [place], KYCO2 [Moles/Vol]26 mmol/L20 - 31 mmol/LMCleveland Clinic Eucl[facility]- [place], KYCreatinine [Mass/Vol]1.26 mg/dLHigh0.7 - 1.2 mg/dLEast [facility], KYGFR >60>60 mL/minFort Hamilton Hospital [place], KYGFR Non- Ketvbnvb02 mL/minLow>60[facility], KYGFR/1.73 sq M predicted among non- blacks MDRD (S/P/Bld) [Vol rate/Area][facility], KYComment on above: Average GFR for 70 or more years old: 75 mL/min/1.73sq m Chronic Kidney Disease: <60 mL/min/1.73sq m Kidney failure: <15 mL/min/1.73sq m eGFR calculated using average adult body mass. Additional eGFR calculator available at: http://www.DuckDuckGo/multiple_crcl_2012.htm GFR/1.73 sq M predicted among non-blacks MDRD (S/P/Bld) [Vol rate/Area]NOT REPORTEDEast [facility], KYGlucose [Mass/Vol]155 mg/vFTiys27 - 99 mg/dLEast [facility], KYInterpretation and review of laboratory resultsAbnormalEast Liverpool [facility], KYPotassium [Moles/Vol]4.5 mmol/L3.7 - 5.3 mmol/LMUniversity [facility]als [facility], KYSodium [Moles/Vol]134 mmol/GPdc349 - 144 mmol/LMUniversity Hospitals Conneaut [facility], KYUrea nitrogen [Mass/Vol]25 mg/dLHigh8 - 23 mg/dLEast [facility], MECBC Auto Differentialon 66-57-9350Ojtwoqett (Bld) [#/Vol]0.00 10*3/[facility], [place] Basophils/100 WBC (Bld)0 %0 - 2 %[facility], KYDifferential TypeYESMUniversity Hospitals Conneaut Medical Center, KYEosinophils (Bld) [#/Vol]0.20 10*3/[facility], [place] Eosinophils/100 WBC (Bld)3 %0 - 5 %[facility], KYErythrocyte distribution width (RBC) [Ratio]14.2 %12.1 - 15.2 %[facility], KYHematocrit (Bld) [Volume fraction]43.0 %41 - 53 %[facility], KYHemoglobin (Bld) [Mass/Vol] 14.6 g/dL13.5 - 17.5 g/dLEast [facility], KYLymphocytes (Bld) [#/Vol]1.70 10*3/[facility], KYLymphocytes/100 WBC (Bld)23 %13 - 44 %[facility] HospitalBRIANH (RBC) [Entitic mass]30.9 pg26 - 34 pgEast [facility], BRIANHC (RBC) [Mass/Vol]33.9 g/dL31 - 37 g/dLEast [facility], BRIANMCV (RBC) [Entitic vol]91.1 fL80 - 100 fLEast [facility], BRIANMonocytes (Bld) [#/Vol]0.70 10*3/[facility], BRIANMonocytes/100 WBC (Bld)9 %5 - 9 %[facility], BRIANPlatelet mean volume (Bld) [Entitic vol]NOT REPORTED6 - 12 fLEast [facility], BRIANPlatelets (Bld) [#/Vol]237 10*3/[facility], BRIANPlatelets (Bld) [#/Vol]NOT REPORTED [facility], BRIANRBC (Bld) [#/Vol]4.73 10*6/uL4.5 - 5.9 m/[facility], BRIANRBC morphology finding Nom (Bld)NOT REPORTEDEast [facility], BRIANSegmented neutrophils/100 WBC (Bld)65 %39 - 75 %[facility], BRIANSegs Absolute4.90[facility], BRIANWBC (Bld) [#/Vol]NOT REPORTEDper 100 WBCEast [facility] Hospital, BRIANWBC (Bld) [#/Vol]7.6 10*3/[facility], BRIANWBC MorphologyNOT REPORTEDEast [facility] HospitalBRIANOtheron 43-73-5839Bjczrtat granulocytes (Bld) [#/Vol]NOT REPORTED [facility], BRIANXR CHEST (2 VW)on 03-68-7058Yyteqx mild symmetric emphysematous overinflation. No acute changes.[facility], BRIANEXAM: XR CHEST (2 VW) HISTORY: Reason for exam:->Pre-op for rt shoulder scope. COMPARISON: None.TECHNIQUE: 2 views chest. FINDINGS: Likely mild emphysematous overinflation. Heart size normal. Lungs clear.[facility] HospitalRamos, myrna Incoming Radiant Results From [employer] - 05/02/2020 1:56 PM EST EXAM: XR CHEST (2VW) HISTORY: Reason for exam:->Pre-op for rt shoulder scope. COMPARISON: None. TECHNIQUE: 2 views chest. FINDINGS: Likely mild emphysematous overinflation. Heart size normal. Lungs clear. IMPRESSION: Likely mild symmetric emphysematous overinflation. No acute changes. [facility] HospitalCALDERON SHOULDER RIGHT WO CONTRASTon . A [...] continued clinical follow up to assess for stability.[facility] HospitalBRIANCLINICAL HISTORY: Impingement syndrome of right shoulder [...] the glenohumeral joint, with small inferior marginal osteophytes.[facility], Ramos, myrna Incoming Radiant Results From [employer] - 04/24/2020 12:20 PM EST CLINICAL HISTORY: [...] follow up to assess for stability. [facility], KYXR SHOULDER RIGHT (MIN 2 VIEWS)on 22-74-7928Iftsxqqm degenerative changes at the acromioclavicular joint with undersurface spurring measuring 7mm, which could contribute to outlet impingement.[facility]Th[facility], BRIAN EXAM: XR SHOULDER RIGHT (MIN 2 VIEWS). HISTORY: M19.011. 74-year-old male, right shoulder pain, arthritis right shoulder region. COMPARISON: None. TECHNIQUE: 3 views right shoulder FINDINGS: Moderateosteoarthritic change acromioclavicular joint with undersurface spurring. Minimal degenerative narrowing at the glenohumeral joint.[facility] HospitalRamos Mhpn Incoming Radiant Results From [employer] - 02/23/2020 4:11 PM EST EXAM: XR [...] mm, which could contribute to outlet impingement. [facility]Th[facility], BRIAN Vital Signs Date TimeVital SignValuePerforming ErznnnwigKgkxusrb86-46-7952 11:07-0400Body ztahtc583.3 cmLaya Plata ELECTROPLATING SALES REPRESENTATIVE Work Phone: [phone] HospitalWgpgabedxb03-57-6593 11:07-0400Body mass index (BMI) [Ratio]23.95 kg/r7EfwgbLaya Plata ELECTROPLATING SALES REPRESENTATIVE Work Phone: [phone] HospitalSygqbzldqb15-46-0161 11:07-0400Body temperature 96.69 [degF]Laya Plata ELECTROPLATING SALES REPRESENTATIVE Work Phone: [phone] HospitalNqjmbqtyiv97-91-3867 11:07-0400Body kwbayu42.57 kgLaya Plata ELECTROPLATING SALES REPRESENTATIVE Work Phone: [phone] HospitalYfrbvmssep18-09-4740 11:07-0400Diastolic blood mm[Hg]Laya Plata ELECTROPLATING SALES REPRESENTATIVE Work Phone: [phone] HospitalLwvfgntadg08-05-1600 11:07-0400Heart rate59 /min Laya Rine ELECTROPLATING SALES REPRESENTATIVE Work Phone: [facility] HospitalLapmepzryn81-24-9597 11:07-0400Respiratory rate18 /minGerri Rine ELECTROPLATING SALES REPRESENTATIVE Work Phone: [facility] HospitalZuwtokvivs01-29-0899 11:07-5272ItB8% (BldA) [Mass fraction]97 %Laya Rine ELECTROPLATING SALES REPRESENTATIVE Work Phone: [phone] HospitalJmwaqfsjgf93-88-6278 11:07-0400Systolic blood hveqtmvj371 mm[Hg]Laya Rine ELECTROPLATING SALES REPRESENTATIVE Work Phone: [facility] HospitalOlufbwzbcx34-56-5878 10:43-0400Body .3 cmBigg Bowens DO Work Phone: [facility] HospitalBcstauzgrl77-04-0361 10:43-0400Body mass index (BMI) [Ratio]24.22 kg/n4HhojhBigg Bowens DO Work Phone: [facility] HospitalIdbbftpdpr62-30-9399 10:43-0400Body .39 kgBigg Bowens DO Work Phone: noHeartland Behavioral Health ServicesIclmtqvgzx20-17-9307 11:02-0400Body ymwncr782.3 cmRamseyri Jayline ELECTROPLATING SALES REPRESENTATIVE Work Phone: [facility] HospitalGhdrdyupqf32-06-0798 11:02-0400Body mass index (BMI) [Ratio]24.25 kg/t4Pnsbr Rine ELECTROPLATING SALES REPRESENTATIVE Work Phone: [phone] HospitalEpuxbnumwf65-75-8337 11:02-0400Body temperature 97.59 [degF]Laya Rine ELECTROPLATING SALES REPRESENTATIVE Work Phone: [facility] HospitalFfiuydvyyx02-38-7786 11:02-0400Body .48 kgGerri Rine ELECTROPLATING SALES REPRESENTATIVE Work Phone: [phone] HospitalRkfchmthwp89-86-3032 11:02-0400Diastolic blood foktyoys63 mm[Hg]Laya Rine ELECTROPLATING SALES REPRESENTATIVE Work Phone: [facility] HospitalVstlkwarcm55-30-1737 11:02-0400Heart rate76 /min Laya Rine ELECTROPLATING SALES REPRESENTATIVE Work Phone: [phone] [place], [place] [address]Pbwmcttkpg16-36-2576 11:02-0400Respiratory rate18 /minGerri Rine ELECTROPLATING SALES REPRESENTATIVE Work Phone: [facility] HospitalConnobbyrm06-66-5693 11:02-5441WoE7% (BldA) [Mass fraction]97 %Laya Rine ELECTROPLATING SALES REPRESENTATIVE Work Phone: [facility] HospitalFknlrbzpse22-21-7627 11:02-0400Systolic blood iwbltvqa876 mm[Hg]Laya Rine ELECTROPLATING SALES REPRESENTATIVE Work Phone: [facility] HospitalHebspejznm81-53-0703 14:53-0500Body qujubo824.3 cmBigg Bowens DO Work Phone: noHeartland Behavioral Health ServicesWjptwoeckr38-08-7836 14:53-0500Body mass index (BMI) [Ratio]24.51 kg/e2AjeepBigg Bowens DO Work Phone: noHeartland Behavioral Health ServicesAigsfjhzko85-42-7110 14:53-0500Body temperature 97.5 [degF]Bigg Bowens DO Work Phone: [facility] HospitalNtrqffrsey73-11-8122 14:53-0500Body dalkik94.3 kg Bigg Bowens DO Work Phone: noHeartland Behavioral Health ServicesFfjauhftgg34-23-2613 11:11-0500Body .3 cmLaya Plata ELECTROPLATING SALES REPRESENTATIVE Work Phone: [facility] HospitalSnqalbjrqb52-89-8416 11:11-0500Body mass index (BMI) [Ratio]24.6 kg/e9Ppcra Rine ELECTROPLATING SALES REPRESENTATIVE Work Phone: [phone] HospitalXqxpxzcmom63-31-0661 11:11-0500Body temperature 98.8 [degF]Laya Rine ELECTROPLATING SALES REPRESENTATIVE Work Phone: [facility] HospitalNegpkbrmtn22-11-8658 11:11-0500Body cfpgub80.57 kgGerri Rine ELECTROPLATING SALES REPRESENTATIVE Work Phone: [facility] HospitalJongjlyfmd53-28-3964 11:11-0500Diastolic blood ivtmnwzk26 mm[Hg]Laya Rine ELECTROPLATING SALES REPRESENTATIVE Work Phone: [facility] HospitalEfptcvouyi83-06-0901 11:11-0500Heart rate65 /min Laya Rine ELECTROPLATING SALES REPRESENTATIVE Work Phone: [facility] HospitalIfkyqxhfdx81-07-6716 11:11-0500Respiratory rate18 /minGerri Rine ELECTROPLATING SALES REPRESENTATIVE Work Phone: [facility] HospitalHzswpyyzzb75-82-4666 11:11-7896JrC8% (BldA) [Mass fraction]94 %Laya Rine ELECTROPLATING SALES REPRESENTATIVE Work Phone: [facility] HospitalZajahribig44-06-2539 11:11-0500Systolic blood gtjnslen814 mm[Hg]Laya Rine ELECTROPLATING SALES REPRESENTATIVE Work Phone: [facility] HospitalIhtjeuvytu28-29-7711 10:19-0500Body enfzsi127.3 cmDavid Pocos DO Work Phone: [facility] HospitalIgaqtgzlrz68-29-7013 10:19-0500Body mass index (BMI) [Ratio]24.96 kg/h6Msjto Pocos DO Work Phone: [facility] HospitalKuewlchosi58-18-4710 10:19-0500Body zoiwux84.66 kgDavid Pocos DO Work Phone: noHeartland Behavioral Health ServicesRmhbcnydez77-83-6587 10:30-0400Body lmuhhp988.3 cmGerri Rine ELECTROPLATING SALES REPRESENTATIVE Work Phone: [facility] HospitalJbqggcfrip04-95-5764 10:30-0400Body mass index (BMI) [Ratio]25.08 kg/n2Vbhpq Rine ELECTROPLATING SALES REPRESENTATIVE Work Phone: [facility] HospitalMjacqevnhh61-99-0291 10:30-0400Body temperature 97.81 [degF]Laya Rine ELECTROPLATING SALES REPRESENTATIVE Work Phone: [facility] HospitalYsoukyagkd77-27-5032 10:30-0400Body uhjbqb56.02 kgGerri Rine ELECTROPLATING SALES REPRESENTATIVE Work Phone: [facility] HospitalVicqizwoap32-44-8832 10:30-0400Diastolic blood qhthyose82 mm[Hg]Laya Rine ELECTROPLATING SALES REPRESENTATIVE Work Phone: [facility] HospitalBlolnvamfj17-24-9115 10:30-0400Heart rate70 /min Laya Rine ELECTROPLATING SALES REPRESENTATIVE Work Phone: [phone] [place], [place] [address]Zfalqgtvzy23-59-4937 10:30-0400Respiratory rate18 /minGeryvan Plata ELECTROPLATING SALES REPRESENTATIVE Work Phone: noHeartland Behavioral Health ServicesCavfcffnyd65-56-6930 10:30-2917LrW6% (BldA) [Mass fraction]96 %Laya Plata ELECTROPLATING SALES REPRESENTATIVE Work Phone: noHeartland Behavioral Health ServicesJgfvegbdnf80-34-8844 10:30-0400Systolic blood wanljliw017 mm[Hg]Laya Plata ELECTROPLATING SALES REPRESENTATIVE Work Phone: [facility] HospitalOiizgzwyvd61-29-6019 15:35-0500BP Daybvkkaj42 mm[Hg][place], [place]02[place] 15:35-0500BP Emalfqbh364 mm[Hg] [place], [place]02[place] 15:35-0500Pulse (Heart Rate)60 /min [place], [place]02[place] 15:35-0500Pulse Spbeeqif47 %[place], [place]02-04[place]2021 15:35-0500Respiratory Rate18 /minDaviLone [place], [place]02[place]20[place] 15:05-0500Body Kdeilenyahg06.49 [degF][facility], DD17-29-9827 10:31-0500BMI (Body Mass Index)26.09 kg/t3[place]vuW[place]02[place] 10:31-0500Body ivsdcx80.7 kgDavid [place], [place]02[place] 10:31-6822Yzvuuh107.5 cmDad [place] Encounters Encounter DateEncounter TypeCare ProviderFacilityStart: 01-28-2025 End: 98-87-0241Sqbttcdyi encounterGerri Jermain Plata ELECTROPLATING SALES REPRESENTATIVE Work Phone: [facility] MedicineStart: 01-26-2025 End: 03-10-4270PgbwelSabaiaj Vargas MANOMS [facility] MedicineComment on above:Type 2 diabetes mellitus without complication, without long-term current use of insulin (HCC)Start: 01-22-2025 End: 69-06-0782nnhirzfqowMsapdme Vytautas Giedraitis MDFacility:PM Ayesha Start: 01-15-2025 End: 14-84-2561Zrkeqbobf encounterLaya Plata ELECTROPLATING SALES REPRESENTATIVE Work Phone: noms [facility] MedicineComment on above:refill atenololStart: 01-05-2025 End: 66-57-5755LenzniXuiyi L Jayline ELECTROPLATING SALES REPRESENTATIVE Work Phone: [facility]oms [facility] MedicineComment on above:Type 2 diabetes mellitus with complication (HCC) (Primary Dx)Type 2 diabetes mellitus with complication (HCC)Start: 01-03-2025 End: 71-85-7215Wfafoy flowsheetGerri L Jayline ELECTROPLATING SALES REPRESENTATIVE Work Phone: [facility] MedicineStart: 01-03-2025 End: 24-46-9814Qucvwf flowsheetGerri L Rine ELECTROPLATING SALES REPRESENTATIVE Work Phone: [facility] MedicineStart: 01-03-2025 End: 83-57-3888Ylnvek outpatient visit 25 minutesGerri Jermain Mosquedae ELECTROPLATING SALES REPRESENTATIVE Work Phone: noms [facility] MedicineComment on above:Chronic left shoulder pain (Primary Dx); Mixed hyperlipidemia; Type 2 diabetes mellitus with complication (HCC); Stage 3a chronic kidney disease ([facility]-HCC); Primary hypertensionStart: 01-03-2025 End: 54-67-9494oogqwfcksgMHONV L RINENot AvailableStart: 12-18-2024 End: 38-09-6635Kzxppp Mariella Bowens DO Work Phone: [facility]edicsStart: 12-18-2024 End: 46-43-9992Dfzafq Mariella Bowens DO Work Phone: [facility]opaedicsStart: 12-18-2024 End: 70-23-7735Jjubxtj encounter procedureBigg Bowens DO Work Phone: NOMS [facility] OrthopaedicsComment on above:Left shoulder pain, unspecified chronicityEnvironmental and seasonal allergies; Primary hypertensionStart: 12-18-2024 End: 33-71-0373hfrzgrauxkCRTCD A BROWNNot AvailableStart: 12-05-2024 End: 15-86-3728Ikithvyey encounterLaya Plata ELECTROPLATING SALES REPRESENTATIVE Work Phone: N[facility] CenterComment on above:refill OmeprazoleStart: 09-19-2024 End: 34-08-2505QflarnAjduxn Feucht MANOMS TSR FMComment on above:Type 2 diabetes mellitus with complication (HCC)Start: 09-05-2024 End: 15-83-0248Ytcerg flowsheetGerri L Jayline ELECTROPLATING SALES REPRESENTATIVE Work Phone: NOMS [facility] FMStart: 09-05-2024 End: 51-48-7668Ioztqy flowsheetGerri L Jayline ELECTROPLATING SALES REPRESENTATIVE Work Phone: NOMS T[facility] FMStart: 09-05-2024 End: 42-24-5699Rdfhki outpatient visit 25 minutesGerri L Jayline ELECTROPLATING SALES REPRESENTATIVE Work Phone: NOMS TSR FMComment on above:Type 2 diabetes mellitus with complication (CMS/HCC) (Primary Dx); Primary hypertension (CMS/HCC); Stage 3a chronic kidney disease (HCC) (CMS/HCC); CPAP (continuous positive airway pressure) dependence; White coat syndrome with diagnosis of hypertension (CMS/HCC)Start: 09-05-2024 End: 21-25-6971ecrcolzfudRZQHM L RINENot AvailableStart: 08-30-2024 End: 70-10-7550ZilgiyOmquob Feucht MANOMS TSR FMComment on above:Environmental and seasonal allergiesStart: 08-14-2024 End: 49-07-9389Mmhgdq Mariella Bowens DO Work Phone: NOMS ORTHOStart: 08-14-2024 End: 27-74-0549Cdcdal Mariella Bowens DO Work Phone: NOMS ORTHOStart: 08-14-2024 End: 22-25-4811Ogvnezc encounter procedureBigg Bowens DO Work Phone: NOMS NB ORTHOComment on above:Left shoulder pain, unspecified chronicity (Primary Dx)Start: 08-14-2024 End: 69-64-8265udptulavvoJIUWS A BROWNNot AvailableStart: 07-10-2024 End: 65-59-2757RdncvbKjnqpb Lacis RNNOMS TSR FMComment on above:Primary hypertension ([facility])Start: 06-05-2024 End: 19-39-5147Bnyprknuq encounterGerri L Rine ELECTROPLATING SALES REPRESENTATIVE Work Phone: NOMS TSR FMComment on above:medication refillStart: 05-26-2024 End: 25-63-8242Cxxivpldc encounterGerri L Rine ELECTROPLATING SALES REPRESENTATIVE Work Phone: NOMS TSR FMStart: 05-21-2024 End: 98-39-5739SpcbvnUtaga L Rine ELECTROPLATING SALES REPRESENTATIVE Work Phone: NOMS TSR FMComment on above:Type 2 diabetes mellitus with other specified complication, unspecified whether tourism radio presenter insulin use ([facility])Start: 05-11-2024 End: 05-03-5710Obtsbtk encounter procedureBigg Bowens DO Work Phone: NOMS NB ORTHOComment on above:Left shoulder pain, unspecified chronicity (Primary Dx)Start: 05-11-2024 End: 20-32-1047unenkwrrnxVNZMV A BROWNNot AvailableStart: 05-11-2024 End: 13-99-5253Ipnhol Mariella Bowens DO Work Phone: [phone] ORTHOStart: 05-11-2024 End: 83-47-5616Muyulb flowsCata Bowens DO Work Phone: [phone] ORTHOStart: 05-08-2024 End: 32-48-8039Lqvifp flowsheetGerri L Rine ELECTROPLATING SALES REPRESENTATIVE Work Phone: NOMS TSR FMStart: 05-08-2024 End: 45-78-8875Ypirpl flowsheetGerri L Rine ELECTROPLATING SALES REPRESENTATIVE Work Phone: NOMS TSR FMStart: 05-08-2024 End: 38-84-1985Kmavgkm encounter procedureLaya Plata NP Work Phone: noms TSR FMComment on above:Medicare annual wellness visit, initial (Primary Dx); Stage 3a chronic kidney disease (HCC) ([facility]/HCC); Primary hypertension (CMS/HCC); Mixed hyperlipidemia (CMS/HCC); Type 2 diabetes mellitus with complication ([facility]/HCC); Obstructive sleep apnea syndrome; Chronic GERD; Lumbar spondylosis; Degeneration of intervertebral disc of lumbar region, unspecified whether pain present; Arthritis, multiple joint involvement; Environmental and seasonal allergies; Vitamin D deficiency; CPAP (continuous positive airway pressure) dependenceStart: 05-08-2024 End: 96-78-1134xqwukoadvzRDAUV L RINENot AvailableStart: 05-01-2024 End: 35-63-4001Vmorkj OnlyLaya Plata NP Work Phone: noms TSR FMComment on above:Elevated glucose (Primary Dx); Essential hypertension ([facility]); Elevated cholesterol ([facility]); Type 2 diabetes mellitus with complication ([facility]/HCC); Mixed hyperlipidemia ([facility]/HCC)Start: 04-26-2024 End: 28-24-0143ZzqvczHyqqw L Rine NP Work Phone: NOIT TSR FMComment on above:Type 2 diabetes mellitus with other specified complication, unspecified whether tourism radio presenter insulin use ([facility])Start: 04-24-2024 End: 77-44-9290Jwpscol encounter procedureDavid A Pocos DO Work Phone: NOMS NB ORTHOComment on above:Left shoulder pain, unspecified chronicity (Primary Dx); Arthritis of left shoulder region; Superior glenoid labrum lesion of left shoulder, initial encounter; Impingement syndrome of left shoulderStart: 04-24-2024 End: 34-79-4750lpfdpfpwyrODWSX A POCOSNot AvailableStart: 04-24-2024 End: 53-45-0401dlpcsubedsUQJRF A POCOSNot AvailableStart: 04-14-2024 End: 94-99-3667Ksuiiz Meenakshi TURPIN Work Phone: NOGC TSR DERMStart: 04-14-2024 End: 13-22-2413Kwpoup flowsheetAlison Jermain Salgado PA Work Phone: NOMS TSR DERMStart: 04-14-2024 End: 05-63-1482Lxwfktagk encounterGerri L Rine ELECTROPLATING SALES REPRESENTATIVE Work Phone: NOEG TSR FMComment on above:FYI on left shoulderStart: 04-14-2024 End: 19-72-0190Vgyazi outpatient visit 15 minutesAlison Jermain Salgado PA Work Phone: NOWJ TSR DERMComment on above:Melanocytic nevus of trunk (Primary Dx); History of basal cell carcinoma; Seborrheic keratosis; Actinic keratosis; Lichen simplex chronicusStart: 04-14-2024 End: 98-03-2113gqvfneqmjnJAMOFW Jermain SALGADONot AvailableStart: 01-17-2024 End: 66-60-5658Hwvpvt flowsheetGerri L Rine ELECTROPLATING SALES REPRESENTATIVE Work Phone: NOMS TSR FMStart: 01-17-2024 End: 30-71-9120Qvbdpk flowsheetGerri L Rine ELECTROPLATING SALES REPRESENTATIVE Work Phone: NOMS TSR FMStart: 01-17-2024 End: 87-84-2548Lyrtpd outpatient visit 25 minutesGerri L Rine ELECTROPLATING SALES REPRESENTATIVE Work Phone: NOMS TSR FMComment on above:Type 2 diabetes mellitus with complication (CMS/HCC) (Primary Dx); Stage 3a chronic kidney disease (HCC) (CMS/HCC); Type 2 diabetes mellitus with hyperglycemia (CMS/HCC); Mixed hyperlipidemia (CMS/HCC)Start: 01-17-2024 End: 06-64-1324oqelgnnnyaGXKXG L RINENot AvailableStart: 01-16-2024 End: 42-79-8431JzhwvlUhekj L Rine ELECTROPLATING SALES REPRESENTATIVE Work Phone: NOMS TSR FMComment on above:Primary hypertension (CMS/HCC)Start: 01-10-2024 End: 67-21-3633Hvrpkx flowsheetAlison L Nellie PA Work Phone: NOMS TSR DERMStart: 01-10-2024 End: 53-26-4761Hpnuys flowsheetAlison L Nellie PA Work Phone: NOMS TSR DERMStart: 01-10-2024 End: 94-06-4103Axtzplkbi encounterGerri L Rine ELECTROPLATING SALES REPRESENTATIVE Work Phone: NOMS TSR FMComment on above:refill atorvastatinStart: 01-10-2024 End: 61-30-0441Nkxlxih encounter procedureAlison L Nellie PA Work Phone: NOMS TSR DERMComment on above:Actinic keratosis (Primary Dx)Start: 01-10-2024 End: 14-47-5403vmvnyijrfuABAKEI L WINANSNot AvailableStart: 12-13-2023 End: 16-11-2621Kmetdxqdn encounterGerri L Rine ELECTROPLATING SALES REPRESENTATIVE Work Phone: NOMS TSR FMComment on above:refillsStart: 12-09-2023 End: 01-75-2033Axvbiemil encounterGerri L Rine ELECTROPLATING SALES REPRESENTATIVE Work Phone: NOMS TSR FMComment on above:Med RefillStart: 11-30-2023 End: 02-25-0265Dzkisl flowsheetAlison L Nellie PA Work Phone: NOMS TSR DERMStart: 11-30-2023 End: 31-87-9133Dncywr flowsheetAlison L Nellie PA Work Phone: NOMS TSR DERMStart: 11-30-2023 End: 99-85-9095Wsfqcu outpatient visit 10 minutesAlison L Nellie PA Work Phone: NOMS TSR DERMComment on above:Segundo angioma (Primary Dx); Actinic keratosisStart: 11-24-2023 End: 83-84-0239JsbuieIbarp L Rine ELECTROPLATING SALES REPRESENTATIVE Work Phone: NOMS TSR FMComment on above:Primary hypertension (CMS/HCC)Start: 06-15-2023 End: 84-91-8906vqfxnmttloZLPCYDH Ryanne [facility] HOSPITALMELIAohiohealth pickerington methodist hospitalerma [facility] HospitalStart: 03-01-2023 End: 53-30-3288uepaeksvfgNJMQDWQ G [facility] STIGLERRMohiohealth pickerington methodist hospitalerma [facility] HospitalStart: 04-23-2022 End: 16-94-2242xaifltopsbNZ DOCTOR MISCFacility:M6Kjqnw: 04-20-2022 End: 89-81-1854Qbrbzzy encounter statusDaniel Pop DO Work Phone: mwhZ RESPIRATORY THERAPYStart: 04-20-2022 End: 41-08-3667Arfwuzrnie hospital visit by Mallory Pop DO Work Phone: mwhz RESPIRATORY THERAPYComment on above:Pre-op testingStart: 04-07-2022 End: 69-51-1173iplfjhbqqbNS DOCTOR MISCFacility:Y1Iorzi: 03-19-2022 End: 30-98-7391ssgdwtfscpXB ABNER S KUMARFacility:A8Kpdjh: 07-22-2021 End: 64-94-0696fwdavvuzmnER ABNER S KUMARFacility:W9Nwljl: 07-16-2021 End: 13-75-6994yanferfjzdJR OTF ESCAMILLAERFacility:U3Mnqmn: 08-15-2020 End: 49-80-8906Imwgssdjny hospital visit by Mallory Pop DO Work Phone: [facility] RadiologyStart: 07-15-2020 End: 07-90-4706Cbjrnsayei hospital visit by Yogi Russell Physical TherapyComment on above:ArrivedStart: 07-08-2020 End: 15-80-4350Icmvrfidxg hospital visit by Cole Marcos Physical TherapyComment on above:ArrivedStart: 07-03-2020 End: 26-02-6418Mgvgeleztq hospital visit by Enoch Rosa Physical TherapyComment on above:ArrivedStart: 07-01-2020 End: 24-78-1841Auuujdzwlc hospital visit by Yogi Russell Physical TherapyComment on above:ArrivedStart: 06-26-2020 End: 48-55-3599Nmsakqdfer hospital visit by Cole Marcos Physical TherapyComment on above:ArrivedStart: 06-24-2020 End: 71-06-2503Iqxigqrbqa hospital visit by Yogi Russell Physical TherapyComment on above:ArrivedStart: 06-21-2020 End: 96-58-2083Hvrmqlgsau hospital visit by Yogi Russell Physical TherapyComment on above:ArrivedStart: 06-19-2020 End: 84-42-3804Mogpvourya hospital visit by Enoch Rosa Physical TherapyComment on above:ArrivedStart: 06-14-2020 End: 81-55-3896Rnzjhqskro hospital visit by Cole Marcos Physical TherapyComment on above:ArrivedStart: 06-12-2020 End: 97-65-5945Mzcizktbpa hospital visit by Cole Marcos Physical TherapyComment on above:ArrivedStart: 06-10-2020 End: 26-11-2575Ruplethzot hospital visit by Cole Marcos Physical TherapyComment on above:ArrivedStart: 06-07-2020 End: 18-35-2203Gavoemkbzj hospital visit by Enoch Rosa Physical TherapyComment on above:ArrivedStart: 06-05-2020 End: 86-59-6114Gxeufyajxf hospital visit by Enoch Rosa Physical TherapyComment on above:ArrivedStart: 05-29-2020 End: 59-14-1574Idjzfatyby hospital visit by Enoch Rosa Physical TherapyComment on above:ArrivedStart: 05-09-2020 End: 14-82-3601Xyuhoccqmv hospital visit by Vicky Moreland Work Phone: mWHG ORComment on above:Rotator cuff syndrome of right shoulder (Primary Dx)Start: 05-09-2020 End: 53-08-3686Daxmkgggdq hospital visit by physicianAnderson Covid19 Pat Screening ScheduleMWHZ PRE ADMITComment on above:ArrivedStart: 05-02-2020 End: 39-59-5692Yaqrazvqok hospital visit by physicianAnderson ReinosoWHZ LaboratoryComment on above:Pre-op chest examStart: 04-24-2020 End: 48-20-9540Svymdjfvjy hospital visit by physicianAnderson Mri Scanner [facility] MRIComment on above:Impingement syndrome of right shoulder Start: 04-17-2020 End: 83-42-8950Vntruwdbqs hospital visit by Keri Garibay Physical TherapyComment on above:ArrivedStart: 04-15-2020 End: 53-92-6980Fpmniwjaij hospital visit by Aida Billingsley Physical TherapyComment on above:ArrivedStart: 04-11-2020 End: 70-89-6381Quxozsiypz hospital visit by Aida Billingsley Physical TherapyComment on above:ArrivedStart: 04-09-2020 End: 29-57-6630Ueuogebkxd hospital visit by Keri Garibay Physical TherapyComment on above:ArrivedStart: 04-03-2020 End: 35-39-4657Vuytuhsdqr hospital visit by Keri Garibay Physical TherapyComment on above:ArrivedStart: 04-01-2020 End: 04-50-6033Fboorsaqme hospital visit by Keri Garibay Physical TherapyComment on above:ArrivedStart: 03-27-2020 End: 41-60-2135Wngmumsukk hospital visit by Lory Peguero Phone: MALACHI Physical TherapyComment on above:ArrivedStart: 03-26-2020 End: 83-78-1359Esvifltwzy hospital visit by Aida Billingsley Physical TherapyComment on above:ArrivedStart: 03-21-2020 End: 86-13-1741Yszvtniopb hospital visit by Keri Garibay Physical TherapyComment on above:ArrivedStart: 03-19-2020 End: 52-45-0570Mqvbyiqinx hospital visit by Aida Billingsley Physical TherapyComment on above:ArrivedStart: 02-23-2020 End: 01-40-4261Qhlnxeehbu hospital visit by Tania [facility] RadiologyComment on above:Arthritis of right shoulder regionStart: 12-20-2018 End: 08-24-4687Tgvmweqaqr hospital visit by [facility] Procedures DateProcedureProcedure DetailPerforming ClinicianStart: 12-18-2024 End: 73-41-1421Badyfbenviqbze aspir&/inj major jt/bursa w/usJason A Brown DO Work Phone: Start: 05-11-2024 End: 34-05-3177Vvyiswifkdnerx aspir&/inj major jt/bursa w/usJason A Brown DO Work Phone: Start: 96-90-3081Nsuop shoulder complete minimum 2 viewsJason A Brown DO Work Phone: Start: 20-22-7292Acgbu shoulder complete minimum 2 viewsDavid A Pocos DO Work Phone: Start: 17-67-3687KCZRQYYHMNA SKIN LESIONAlison L Nellie PA Work Phone: Start: 72-91-4991ALELEAIGGYL SKIN LESIONAlison L Nellie PA Work Phone: Start: 25-06-9632SZQFIAEPVOI SKIN LESIONAlison L Nellie PA Work Phone: Start: 79-01-7519Iew routine ecg w/least 12 lds w/i&r Brian Mckeon MD Work Phone: start: 21-40-6487Shpu bld gluc mntr dev cleared fda spec home useDavid John Pocos Work Phone: Start: 29-23-0812Wuos bld gluc mntr dev cleared fda spec home useDavid John Pocos Work Phone: Start: 14-48-0928CLPHD-19Luis Cheryl Doll Work Phone: Start: 32-14-4819Oojtbmnyai exam chest 2 viewsDavid John Moreland Work Phone: Start: 49-38-4369Nqsnu metabolic panel calcium total Pretty John Moreland Work Phone: Start: 42-28-6998Rdsmj count complete auto&auto difrntl wbcDavid John Moreland Work Phone: Start: 29-60-2624Jut any jt upper extremity w/o contrast matrlDavid John Moreland Work Phone: Start: 33-29-2061Makrz shoulder complete minimum 2 viewsMichael G Roseann Work Phone: Plan of Treatment DateCare ActivityDetailAuthorStart: 32-80-0864Mckvnhju screeningDiabetes: Retinopathy ScreeningNOVA HealthcareStart: 30-11-2362Cjlqbfwru vaccination Influenza Vaccine (#1)NOMS HealthcareComment on above:Postponed from 12/04/2024 (Patient Refused)Start: 02-03-2026Medicare Annual Wellness (AWV)Medicare Annual Wellness (AWV)NOMS HealthcareStart: 04-20-2025 End: 84-05-6695Chbtpwa encounter procedureNOMS TSR DERMStart: 03-27-2025 Hemoglobin A1c measurementDiabetes: Hemoglobin V9TTJQT HealthcareStart: 02-26-2025 End: 57-99-2842Jtampsh encounter bhwatrjnn76/24/2025 10:30 AM EST Office Visit [facility] [address] [place] [address] Laya Plata NP [address] [place] [address] [facility] MedicineStart: 11-13-6289Ytlhk screening for proteinDiabetes: Urine Protein ScreeningNOVA HealthcareStart: 01-03-2025 End: 97-18-1522Mxjdedb aminotransferase [Enzymatic activity/volume] in Serum or PlasmaALT Lab Routine Mixed hyperlipidemia Expected: 01/03/2025 (Approximate), Expires: 01/03/2026[facility] Work Phone: Comment on above:Expected: 01/03/2025 (Approximate), Expires: 01/03/2026Start: 01-03-2025 End: 17-72-1192Dijejjpjp aminotransferase [Enzymatic activity/volume] in Serum or PlasmaAST Lab Routine Mixed hyperlipidemia Expected: 01/03/2025 (Approximate), Expires: 01/03/2026NOVA HealthcareComment on above:Expected: 01/03/2025 (Approximate), Expires: 01/03/2026Start: 01-03-2025 End: 82-69-0976Xxamhiefdv A1c/Hemoglobin.total in BloodHemoglobin A1c Lab Routine Type 2 diabetes mellitus with complication (HCC) Expected: 01/03/2025 (Approximate), Expires: 01/03/2026NOVA HealthcareComment on above:Expected: 01/03/2025 (Approximate), Expires: 01/03/2026Start: 01-03-2025 End: 84-83-5229Irhpx 1996 panel - Serum or PlasmaLipid panel Lab Routine Mixed hyperlipidemia Expected: 01/03/2025 (Approximate), Expires: 01/03/2026NOVA HealthcareComment on above:Expected: 01/03/2025 (Approximate), Expires: 01/03/2026Start: 01-03-2025 End: 57-46-2952Qjjepfj encounter procedureNOMS TSR FMComment on above:Arrived Start: 12-18-2024 End: 53-21-5832Lhjnqca encounter procedureNOMS NB ORTHOComment on above:Arrived Start: 12-06-2024 End: 08-25-3034Fwkobyftta A1c/Hemoglobin.total in BloodHemoglobin A1c Lab Today Type 2 diabetes mellitus with complication (CMS/HCC) Expected: 12/06/2024 ( Approximate), Expires: 09/05/2025[facility] Healthcare Work Phone: Comment on above:Expected: 12/06/2024 (Approximate), Expires: 09/05/2025Start: 11-14-4715Pvexofpbe vaccinationALTA VIEW HOSPITAL HealthcareStart: 14-42-9180Iqgtzgxgus A1c measurementDiabetes: Hemoglobin O1EUVOBSullivan County Memorial Hospital Start: 86-34-6949Zchydzrxa vaccinationInfluenza Vaccine (#1)[facility] Healthcare Comment on above:Postponed from 12/05/2023 (Patient Refused)Start: 09-05-2024 End: 23-79-5506Kizwxas encounter procedureNOVA TSR FMComment on above:Arrived Start: 08-15-2024 End: 49-20-8367Ufncggx encounter nmnxexxel73/13/2025 10:30 AM EDT Office Visit [facility] [address] [place] [id number] Bigg Bowens DO [address] [address] [facility] ORTHOStart: 08-14-2024 End: 15-23-4554Xbifjqh encounter procedureNOVA NB ORTHOComment on above:Arrived Start: 08-07-2024 End: 49-44-6835Zcuafefgtb A1c/Hemoglobin.total in BloodHemoglobin A1c Lab Today Type 2 diabetes mellitus with complication ([facility]/HCC) Expected: 08/07/2024 ( Approximate), Expires: 05/08/2025[facility] Work Phone: Comment on above:Expected: 08/07/2024 (Approximate), Expires: 05/08/2025Start: 50-07-5749Qidhkyldyp A1c measurementDiabetes: Hemoglobin G1IRUKCSullivan County Memorial HospitalStart: 05-11-2024 End: 65-61-4097Xkfrmio encounter procedureNOVA NB ORTHOComment on above:Arrived Start: 05-08-2024 End: 82-83-0629Yxdibfo encounter procedureNOVA TSR FMComment on above:Medicare annual wellness visit, [...] (continuous positive airway pressure) dependenceStart: 05-01-2024 End: 47-12-6136Nsmkrpedwtgir metabolic 2000 panel - Serum or PlasmaComprehensive metabolic panel Lab Routine Essential hypertension ([facility]) Expected: 05/01/2024, Expires: 05/01/2025NOMS HealthcareComment on above:Expected: 05/01/2024, Expires: 05/01/2025Start: 05-01-2024 End: 40-85-4284Oppsouyabh a1c with eagHemoglobin a1c with eag Lab Routine Type 2 diabetes mellitus with complication ([facility]) Expected: 05/01/2024 (Approximate), Expires: 05/01/2025[facility] Work Phone: Comment on above:Expected: 05/01/2024 (Approximate), Expires: 05/01/2025Start: 05-01-2024 End: 05-67-5750Tukvd 1996 panel - Serum or PlasmaLipid panel Lab Routine Mixed hyperlipidemia ([facility]) Expected: 05/01/2024 (Approximate), Expires:05/01/2025 NOM[facility] HealthcareComment on above:Expected: 05/01/2024 (Approximate), Expires: 05/01/2025Start: 04-24-2024 End: 90-95-6816Apweilv encounter jnncjujfv28/20/2025 10:30 AM EST Office Visit [facility] [address] [place] [address] Pretty Moreland DO [address] [place] [address] [facility] ORTHOStart: 04-14-2024 End: 81-42-0945Mixhiin encounter procedureNOMS TSR DERMComment on above:Arrived Start: 40-45-1184Nfxobnrdwr A1c measurementDiabetes: Hemoglobin D5FDJDI HealthcareStart: 57-81-6842Nuczximas vaccinationInfluenza Vaccine (#1)NOM[facility] HealthcareComment on above:Postponed from 12/05/2023 (Patient Refused)Start: 01-17-2024 End: 53-75-6143Bibjkck encounter procedureNOMS TSR FMComment on above:Type 2 diabetes mellitus with complication (CMS/HCC) (Primary Dx); Stage 3a chronic kidney disease (HCC) (CMS/HCC)Start: 01-10-2024 End: 51-99-7597Qgybzwl encounter procedureNOMS TSR DERMComment on above:Arrived Start: 47-53-3887Wozcpltrmv A1c measurementDiabetes: Hemoglobin X3ROIQW HealthcareStart: 48-18-4372Wklpjahu screeningDiabetes: Retinopathy ScreeningNOVA HealthcareStart: 41-58-6853Hsdivxspu vaccinationInfluenza Vaccine (#1)[facility] HealthcareStart: 11-30-2023 End: 42-83-4546Xchwldy encounter procedureNOMS TSR DERMComment on above:Arrived Start: 40-29-4342Ahlhv screening for proteinDiabetes: Urine Protein Screening [facility] HealthcareStart: 05-04-2022 End: 59-40-2807Ifmoookty to same day surgery lawsmd3605/04/2022 Surgery IP Unit BackBrian MD [address] [place] [address] COLONOSCOPYMZ EndoscopyComment on above:COLONOSCOPYStart: 05-04-2022 End: 77-61-0722Mefow ca scrn not hi rsk indCOLORECTAL CANCER SCREENING, NOT HIGH RISK Screening for colon cancer 05/04/2022 7:30 AM ESTMZ ENDOSCOPYStart: 05-04-2022 End: 80-21-2426Mdewfxwcueslrorrdizwrfprjm transoral diagnosticEGD ESOPHAGOGASTRODUODENOSCOPY Screening for colon cancer 05/04/2022 7:30 AM ESTMZ ENDOSCOPYStart: 39-83-5043Fyhqeftnpj hospital visit by ehdnoucxq42/30/2023 Hospital Encounter IP Unit BackBrian MD [address] [place] [address] [facility] EndoscopyStart: 21-57-8463Ruhdshyjpn measurementCreatinine [facility]- [place], [place]Start: 33-79-9311Gmjhfgcaa monitoringPotassium [facility]- [place], [place]Start: 26-13-2364SPGKH-19 Vaccine (2 - Booster for Hermila series)COVID-19 Vaccine (2 - Booster for Hermila series)[facility]Start: 07-11-2020 End: 49-90-4169DfbzhhnukosXSHM Physical TherapyStart: 07-08-2020 End: 24-05-8547Ezcyzoszxzf71/05/2021 Appointment Physical Therapy Nathalie Burnham Physical TherapyStart: 07-05-2020 End: 62-39-7788Lazuuoyazxy12/02/2021 Appointment Physical Therapy Nathalie Burnham Physical TherapyStart: 07-03-2020 End: 10-42-7822Rcezplzyrar03/31/2021 Appointment Physical Therapy Quynh Worthington PTMWHZ Physical TherapyStart: 07-01-2020 End: 91-13-1605Suwdmzieiad52/29/2021 Appointment Physical Therapy Alisia Sapp Physical TherapyStart: 06-28-2020 End: 80-94-3410Bwugypjbsse19/26/2021 Appointment Physical Therapy Quynh Worthington PTMWHZ Physical TherapyStart: 06-26-2020 End: 70-94-3233Lgomxiqpslr93/24/2021 Appointment Physical Therapy Nathalie Burnham Physical TherapyStart: 06-24-2020 End: 84-01-4936Qxybfxihaky02/22/2021 Appointment Physical Therapy Alisia Sapp Physical TherapyStart: 06-24-2020 End: 16-65-9215Edogseenflp68/22/2021 Appointment Physical Therapy Nathalie Burnham Physical TherapyStart: 06-21-2020 End: 88-18-1881GtzcuvebsezXBKD Physical TherapyStart: 06-19-2020 End: 39-45-6666Tddnlthlbgj11/17/2021 Appointment Physical Therapy Quynh Worthington PTMGato Physical TherapyStart: 06-17-2020 End: 16-21-1618Fzbzdskqsaf88/15/2021 Appointment Physical Therapy Nathalie Burnham Physical TherapyStart: 06-14-2020 End: 74-58-2588Qssfsgjgyni21/12/2021 Appointment Physical Therapy Nathalie Burnham Physical TherapyStart: 06-12-2020 End: 19-23-6605Nzqlylhcqdy60/10/2021 Appointment Physical Therapy Nathalie Burnham Physical TherapyStart: 06-10-2020 End: 82-28-4167Emdqtbqicqx35/08/2021 Appointment Physical Therapy Nathalie Burnham Physical TherapyStart: 06-07-2020 End: 50-99-7319Pstomyjqigb76/05/2021 Appointment Physical Therapy Quynh Worthington PTMGato Physical TherapyStart: 06-05-2020 End: 74-17-4834Tzjamfqvosy49/03/2021 Appointment Physical Therapy [facility]ynh Worthington [facility] Physical TherapyStart: 52-95-8817Czwwegkh Ecqqryric79/01/2021 Hospital Encounter Physical Therapy Alisia Sapp Physical TherapyStart: 58-67-8521Wpuutyki Nkirygdwy74/26/2021 Hospital Encounter Physical Therapy Alisia SappGato Physical TherapyStart: 05-09-2020 End: 17-02-1212Zsoovnlq EncounterHENRY J. CARTER [facility] NURSING FACILITYGato PRE ADMITComment on above:RIGHT SHOULDER ARTHROSCOPY PROBABLE ROTATOR CUFF REPAIR... LONG HEAD BICEPS TENODESISStart: 04-17-2020 End: 65-54-1215Esjizftuipb03/13/2021 Appointment Physical Therapy Rosalino Singh PTAMMALACHI Physical TherapyStart: 04-15-2020 End: 84-07-7034Urgwjyfwznh22/11/2021 Appointment Physical Therapy Danay Jimenez PTMGato Physical TherapyStart: 04-11-2020 End: 44-35-8748Qivnibureqc89/07/2021 Appointment Physical Therapy Danay Jimenez [facility] Physical TherapyStart: 04-09-2020 End: 81-55-0641Mwzazrmbzij81/05/2021 Appointment Physical Therapy Rosalino Singh PTAMWHGato Physical TherapyStart: 04-03-2020 End: 24-52-3463Wkidmutglcl45/30/2020 Appointment Physical Therapy Rosalino Singh PTAMMALACHI Physical TherapyStart: 04-01-2020 End: 00-25-8901Xekizztawvy68/28/2020 Appointment Physical Therapy Rosalino Singh PTAMMALACHI Physical TherapyStart: 03-27-2020 End: 73-93-9710Mjxyfwonhwk58/23/2020 Appointment Physical Therapy Jessica Albarado, PT [address] [place] [address] [phone] Physical TherapyStart: 03-26-2020 End: 00-79-7566Etcmlszzqnl11/22/2020 Appointment Physical Therapy Danay Jimenez, PTMWHZ Physical TherapyStart: 03-21-2020 End: 51-85-4822Giojvuhgngu19/17/2020 Appointment Physical Therapy Rosalino Singh PTAMWHGato Physical TherapyStart: 29-71-6623Vkgwm cancer screen colonoscopyColon cancer screen [facility]oscopy[facility]: 54-25-4586Qrbniqwsn vaccinationFlu vaccine (#1)[facility]: 41-14-6255Flmhci Wellness Visit (AWV)Annual Wellness Visit (AWV)[facility]: 03-02-2018 Pneumococcal 65+ years Vaccine (2 of 2 - PCV13)Pneumococcal 65+ years Vaccine (2 of 2 - PCV13)[facility]: 70-34-3629Ygubzfwt Vaccine (1 of 2) Shingles Vaccine (1 of 2)[facility]: 73-51-0116FUvN/Tdap/Td vaccine (1 - Tdap)DTaP/Tdap/Td vaccine (1 - Tdap)[facility]: 22-10-4294Szsdmqmps C screeningHepatitis C screenBON [facility]: 05-65-5605MBVWD-19 Vaccine (1 of 2)COVID-19 Vaccine (1 of 2)[place] Start: 88-55-7530KGZHS-19 Vaccine (1)COVID-19 Vaccine (1)[facility] Work Phone: start: 90-23-5483Elvxoxpwjc ScreenDepression ScreenBON [facility]art: 06-22-1955[object Object]Diabetic foot examDodge, KYStart: 87-74-7287X6S test (Diabetic or Prediabetic)A1C test (Diabetic or Prediabetic)[place], [place]Start: 95-52-3149Gwoxfqjo retinal examDiabetic retinal examD[place], KYStart: 62-62-4541Judeq panelBON SECPremier Health Miami [facility] Hospitalart: 43-75-3678Irrks screenLipid screenD[place], KYStart: 53-08-5625OXK screenAAA screenD[place], KYStart: 1943 Creatinine measurementCreatinine monitoringD[place], KYStart: 1943 Creatinine monitoringCreatinine monitoringEast [facility], [place]Start: 1943 Hepatitis C screeningHepatitis C screenD[place], [place]Start: 1943 Potassium monitoringPotassium monitoringDodge, KYOxygen therapy [Minimum Data Set]Initiate Oxygen Therapy Protocol Respiratory Care Routine Daily until discontinued starting 05/09/2020[place], KYComment on above:Daily until discontinued starting 05/09/2020 End: 38-09-0812BFGX glucosePOCT glucose Point of Care Testing Routine One Time for 1 Occurrences starting 05/09/2020 until 05/09/2020[place] Comment on above:One Time for 1 Occurrences starting 05/09/2020 until 05/09/2020 XR Shoulder - left 2 ViewsXR shoulder 2+ views left Imaging Routine Left shoulder pain, unspecified chronicity 04/24/2024 8:09 AM [employer] Work Phone: Immunizations Immunization DateImmunizationNotesCare UqzjfqrtZvbdudpy15-17-5537Pmaahhwym, High-dose Seasonal, Quadrivalent, Preservative Mayo Plata NP Work Phone: [phone] [place], [place] [address]Biegxgvach48-71-8493nlwgllqod virus vaccine, unspecified formulationGerri Rine ELECTROPLATING SALES REPRESENTATIVE Work Phone: [phone] [place], [place] [address]Ezgvjaegoe03-72-1763Vszgfrzkh, High-dose Seasonal, Quadrivalent, Preservative FreeGerri Rine ELECTROPLATING SALES REPRESENTATIVE Work Phone: [phone] [place], [place] [address]Kexokhiwzf90-70-7861cmyzhqtii, injectable, quadrivalent, preservative freeGerri Rine ELECTROPLATING SALES REPRESENTATIVE Work Phone: [phone] [place], [place] [address]Oootxcnqim26-85-7246Sqgxoksb trivalent influenza vaccine, adjuvanted, preservative freeGerri Rine ELECTROPLATING SALES REPRESENTATIVE Work Phone: [phone] [place], [place] [address]Ijpcoierdb44-72-3352jgkvfrtkd, high dose seasonal, preservative-freeGerri Rine ELECTROPLATING SALES REPRESENTATIVE Work Phone: [phone] [place], [place] [address]Kbptvrvfrc14-34-6909vyyoaesgxfgw polysaccharide vaccine, 23 valentGerri Rine ELECTROPLATING SALES REPRESENTATIVE Work Phone: [phone] [place], [place] [address]Zyeiwlejay04-04-8497osrjljmde, high dose seasonal, preservative-freeGerri Rine ELECTROPLATING SALES REPRESENTATIVE Work Phone: [phone] [place], [place] [address]Niwqjgbita27-60-8800sqhiiwiyp, injectable, quadrivalent, contains preservativeGerri Rine ELECTROPLATING SALES REPRESENTATIVE Work Phone: [phone] [place], [place] [address]Tycsusnkra71-50-5748urbvexopp, injectable, quadrivalent, preservative freeGerri Rine ELECTROPLATING SALES REPRESENTATIVE Work Phone: [phone] [place], [place] [address]Tkqlndrwoi53-41-8791tgvfkdmbdszn conjugate vaccine, 13 valentGerri Rine ELECTROPLATING SALES REPRESENTATIVE Work Phone: [phone] [place] [address] Payers DatePayer CategoryPayerPolicy ID2017MedicareMEDICARE MEDICARE PART A AND B xxxxxxxxxx 2016-Present [phone] [place] [address] xxxxxxxxxx [id number] Health InsuranceATRIUM HEALTH [facility] MEDICARE SUPP xxxxxxxxx 2016-Present [address] [address] [place] [address]ejdrjpzel [id number] Health [id number] [id number] 1960Medicare [id number] 1.2.840.213149.1.13.239.2.7.3.021290.11497-70-0323Ifgcnyx Health [id number] 1.2.840.251053.1.13.239.2.7.3.559414.37777-37-0849Suosbmy [id number] 2.0.1.029401.3.57[id number] 2.0.1.303872.3.57[id number] 2.0.1.755301.3.57[id number] 2..1.845114.3.57[id number] 2.0.1.670592.3.57[id number] 2.0.1.601442.3.57[id number] 2.840.1.539375.3.57[id number] 2.0.1.936122.3.57[id number] 2.16.840.1.129057.3.57[id number] 2.16.840.1.607685.3.579.[id number] 2.16.840.1.128133.3.579.2.7[id number] 2.840.1.478474.3.579.2.[id number] 2.840.1.398461.3.57[id number] 2.840.1.546420.3.579.2.983004-34-4885Cmylfdn8225155 2.840.1.565025.3.579.2.759841-71-3710Kvuvopm9337501 2.840.1.169983.3.579.[id number] 2.840.1.798427.3.579.2.639121-76-0648Vzxoitz0825465 2.840.1.222800.3.579.2.[id number] 2.840.1.581885.3.579.2.762992-90-4618Annpegb6256914 2.840.1.903711.3.579.[id number] 2.840.1.206947.3.57[id number] 2.840.1.972372.3.579.2.196 Social History DateTypeDetailFacilityStart: 12-15-2016 End: 01-89-0683Fnqtmeb smoking status NHISFormer [place]okerD[place], [place] Start: 02-06-1991 End: 54-41-3318Nnbwybd of tobacco useCurrent smokerD[place], [place]Start: 02-06-1991 End: 92-15-5108Nvccctm of tobacco useCigarette [place], [place] End: 90-54-0351Sgejhak of tobacco usePipe SmokerToledo Hospitalart: 12-15-2016 End: 79-27-3029Ndkftss use and exposureFormer [place], [place]History of tobacco useSnuff [place], [place]History of tobacco useChews Tobacco [facility] Hospitalart: 12-15-2016 End: 35-39-8090Fkvlheb intakeCurrent drinker of alcohol (finding)[facility]: 70-51-9096Dis Assigned At BirthNot on [place] Exposure to SARS-CoV-2 (event)Not sureToledo Hospitalart: 12-15-2016 End: 15-29-1854Fvuzlvz intakeYesNOMS HealthcareStart: 05-09-2020 End: 78-10-0585Vzjhlki intakeNOVA HealthcareStart: 98-71-2640Bfcxtol SDOH Pabsobhwc4KIP [facility] [place] Work Phone: start: 58-54-0729Ehclrbz SDOH Food Inwhi9MKL [facility] Work Phone: start: 64-77-6472Wyiczkk use and exposureSmokeless tobacco non-userNOMS HealthcareWithin the last year, have you been afraid of your partner or ex-partner?NoNOMS HealthcareDo you belong to any clubs or organizations such as religion groups, unions, fraternal or athletic groups, or school groups?YesNOMS HealthcareAre you now , , , , never or living with a partner?MarriedNOMS HealthcareHow often to you have a drink containing alcohol?Monthly or lessNOMS HealthcareHow many standard drinks containing alcohol do you have on a typical day?1 or 2NOMS HealthcareHow often do you have 6 or more drinks on 1 occasion?NeverAL[facility]IEW [facility]ITAL HealthcareStart: 47-11-7729Idc hard is it for you to pay for the very basics like food, housing, medical care, and heatingNot hard at allSullivan County Memorial HospitalDo you feel stress - tense, restless, nervous, or anxious, or unable to sleep at night because yourmind is troubled all the time - these days [OSQ]Not at [facility](I/We) worried whether (my/our) food would run out before (I/we) got money to buy more.Never trueALTA VIEW HOSPITAL HealthcareStart: 59-07-6692Yirytyg CommentLast smoked: more than 10 years agoNNORTHEASTERN HEALTH SYSTEM SEQUOY[facility] – SEQU[facility] HealthcareStart: 32-09-4990Okijpuc CommentI drink a beer once a week, Caffeine intake: 1-2 cups per day coffeeALTA VIEW HOSPITAL HealthcareStart: [id number] CommentI drink a beer once a weekNOVA HealthcareHow often to you have a drink containing alcohol?2-4 times a monthNOVA HealthcareHow hard is it for you to pay for the very basics like food, housing, medical care, and heatingNot very hardSullivan County Memorial Hospital Medical Equipment Procedure CodeEquipment CodeEquipment Original TextEquipment IdentifierDates [place] [employer] 4.75x19.1 Mm Tiana [id number]: 05-09-2020 [id number]: 04-20-2023 End: 39-85-1472Nkmal [id number]: 74-94-7678Dfwdo [id number]: 08-15-2024 End: 91-94-8808Obguk [id number]: Units 4 (four) times a day as needed (blood glucose monitoring with insulin)[id number]: 01-28-2025 Clinical Notes 07-16-2021 to 01-28-2025 Note Date & [id number] Telephone encounter Note* Telephone Encounter - Laya Plata NP - 01/28/2025 9:17 PM EDT New rx for lancets sent per pts e request [facility] [id number] Miscellaneous Notes* Telephone Encounter - Laya Plata NP - 01/28/2025 9:17 PM EDT New rx for lancets sent per pts e request documented in this [facility]10-24-2025 Telephone encounter Note* Telephone Encounter - Deidra Burnette MA - 01/26/2025 11:03 AM EDT Pt requesting refill on his lancets. He is requesting the Rx state that he is using them 3 times daily as he was instructed to do extra testing. [facility] HospitalPvapnrhmmw38-84-8875 Miscellaneous Notes* Telephone Encounter - Deidra Burnette MA - 01/26/2025 11:03 AM EDT Pt requesting refill on his lancets. He is requesting the Rx state that he is using them 3 times daily as he was instructed to do extra testing. documented in this [facility]10-13-2025 Telephone encounter Note* Telephone Encounter - Laya Plata NP - 01/15/2025 5:16 PM EDT Sent as requested [place] [id number] Miscellaneous Notes* Telephone Encounter - Laya Plata NP - 01/15/2025 5:16 PM EDT Sent as requested * Telephone Encounter - Lindsay Diaz MA - 01/15/2025 12:37 PM EDT He would like to get a refill on his atenolol 50mg to [facility] Last appt: 01/03/2025 Next appt: 02/26/2025 documented in this [facility]10-13-2025 Telephone encounter Note* Telephone Encounter - Lindsay Diaz MA - 01/15/2025 12:37 PM EDT He would like to get a refill on his atenolol 50mg to [facility] Last appt: 01/03/2025 Next appt: 02/26/2025 [facility] HospitalLzvrzheqdp71-73-8862 Telephone encounter Note* Telephone Encounter - Laya Plata NP - 01/05/2025 9:41 AM EDT Resent rx with the 5 units in the sig [facility] HospitalZxpwpmhmqr62-90-1121 Miscellaneous Notes* Telephone Encounter - Laya Plata NP - 01/05/2025 9:41 AM EDT Resent rx with the 5 units in the sig documented in this [facility]10-03-2025 Telephone encounter Note* Telephone Encounter - Laya Plata NP - 01/05/2025 6:50 AM EDT New insulin rx sent as insurance denied lispro rx [place] [id number] Miscellaneous Notes* Telephone Encounter - Laya Plata NP - 01/05/2025 6:50 AM EDT New insulin rx sent as insurance denied lispro rx documented in this encounterSullivan County Memorial HospitalImgooylhvy95-08-7997 History of Present illness Narrative* Laya Plata [...] 2 weeks. A nerve block procedure at [facility] is scheduled for 01/11/2025, with arthroscopy planned for 03/19/2025 if needed. Mild pain occurs when raising his arm, tolerable for short periods. He uses a creamfor additional relief and prefers to delay further treatment until after his trip to [facility] at the end of the month. and [...] SURGERY KNEE SURGERY Arthroscopy knee MOHS SURGERY CA REPAIR OF NASAL SEPTUM nasal septoplasty to [...] pain Comments: appt for nerv block in [facility] , sent by dr bowens [...] before meals Stage 3a chronic kidney disease ([facility]) Comments: cr 1.53, gfr 46 on [...] mar after labs . documented in this encounterSullivan County Memorial HospitalPgwobksfma43-53-2944 Instructions* Patient Instructions* Laya Plata NP - [...] how well this work documented in this [facility]09-15-2025 Telephone encounter Note* Telephone Encounter - Oneida Noel MA - 12/18/2024 2:24 PM EDT PT requesting refill on lisinopril and fluticasone, please send to [facility]. [facility] HospitalXykvyuiyvn69-97-6965 Miscellaneous Notes* Telephone Encounter - Oneida Noel MA - 12/18/2024 2:24 PM EDT PT requesting refill on lisinopril and fluticasone, please send to [facility]. documented in this [facility]09-15-2025 History of Present illness Narrative* ASAEL Thao [...] He has previously sought pain management at [place], where he received nerve blocks for his lumbar spine. He hasan upcoming appointment with his physician in a few weeks. His inquires about the possibility of surgery to address the shoulder. He expresses interest in receiving another injection today as heplans to participate in a [employer] trip to [facility] at the end of January 2025. He [...] SURGERY KNEE SURGERY Arthroscopy knee MOHS SURGERY CA REPAIR OF NASAL SEPTUM nasal septoplasty to [...] Positive Cantrell, Neer impingement, positive Whipple, positive Faison's tests are observed. 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 Another cortisone injection [...] note was created using voice recognition through [employer]. documented in this encounterSullivan County Memorial HospitalLuihmzxzzl96-44-6278 Telephone encounter Note* Telephone Encounter - Laya Plata NP - 12/05/2024 11:30 AM EDT Sent as requested. [facility] HospitalGwgpojmoej89-73-2023 Miscellaneous Notes* Telephone Encounter - Laya Plata NP - 12/05/2024 11:30 AM EDT Sent as requested. * Telephone Encounter - Lindsay Diaz MA - 12/05/2024 10:51 AM EDT Refill on Omeprazole to [facility] Last appt: 09/05/2024 Next appt: 01/03/2025 documented in this encounterSullivan County Memorial HospitalOsaycczeef96-60-3428 Telephone encounter Note* Telephone Encounter - Lindsay Diaz MA - 12/05/2024 10:51 AM EDT Refill on Omeprazole to [facility] Last appt: 09/05/2024 Next appt: 01/03/2025 [facility] HospitalLvhtszldmh57-94-4085 Telephone encounter Note* Telephone Encounter - Oneida Noel MA - 09/19/2024 10:17 AM EDT Requesting refill on januvia, please send to [facility]. [facility] HospitalFdrtvbccbd55-93-6444 Miscellaneous Notes* Telephone Encounter - Oneida Noel MA - 09/19/2024 10:17 AM EDT Requesting refill on januvia, please send to [facility]. documented in this encounterSullivan County Memorial HospitalAloffmzerc47-39-3530 History of Present illness Narrative* Laya Plata [...] REPAIR COLONOSCOPY 2010 KNEE SURGERY Arthroscopy knee CA REPAIR OF NASAL SEPTUM nasal septoplasty to [...] Physical Exam Constitutional: Appearance: Normal appearance. Comments: [place] for age, baseline self HENT: Head: Normocephalic [...] mo recheck. aic prior. documented in this [facility]06-03-2025 Instructions* Patient Instructions* Laya Plata NP - 09/05/2024 11:00 AM EDT Pure protein snack at bedtime Push water harder, this will help the cramps and the sugar!! Stay on your feet after meals Water after each meal Average blood sugar in 3 mo documented in this [facility]05-28-2025 Telephone encounter Note* Telephone Encounter - Oneida Noel MA - 08/30/2024 9:04 AM EDT PT requesting refill on loratadine, please send to [facility]. [facility] HospitalLajqapfqgc69-89-5195 Miscellaneous Notes* Telephone Encounter - Oneida Noel MA - 08/30/2024 9:04 AM EDT PT requesting refill on loratadine, please send to [facility]. documented in this encounterSullivan County Memorial HospitalYdnlttaorw69-61-4993 History of Present illness Narrative* Bigg Bowens [...] REPAIR COLONOSCOPY 2010 KNEE SURGERY Arthroscopy knee CA REPAIR OF NASAL SEPTUM nasal septoplasty to [...] Positive Cantrell, Neer impingement, positive Whipple, positive Faison's tests are observed. Right shoulder: The skin [...] note was created using voice recognition through [employer]. documented in this [facility]04-07-2025 Telephone encounter Note* Telephone Encounter - Josefina Uriarte RN - 07/10/2024 12:33 PM EDT Med refill request. Med loaded [facility] HospitalGxaotznbuw89-58-8650 Miscellaneous Notes* Telephone Encounter - Josefina Uriarte RN - 07/10/2024 12:33 PM EDT Med refill request. Med loaded documented in this [facility]03-03-2025 Telephone encounter Note* Telephone Encounter - Laya Plata NP - 06/05/2024 11:40 AM EST Sent as requested [facility] HospitalWanhrmjbxl14-57-8241 Miscellaneous Notes* Telephone Encounter - Laya Plata NP - 06/05/2024 11:40 AM EST Sent as requested * Telephone Encounter - Lindsay Diaz MA - 06/05/2024 10:36 AM EST He needs a refill on his Famotidine and Lisinopril [facility] to [facility] documented in this encounterSullivan County Memorial HospitalDovrnviavx26-35-6212 Telephone encounter Note* Telephone Encounter - Lindsay Diaz MA - 06/05/2024 10:36 AM EST He needs a refill on his Famotidine and Lisinopril [facility] HospitalRznsvufliu69-48-6604 Telephone encounter Note* Telephone Encounter - Laya Plata NP - 05/26/2024 7:54 AM EST Insurance letter to change insuline to deglutide.new rx sent. This was already sent [facility] HospitalMcbuezeocc02-34-0182 Miscellaneous Notes* Telephone Encounter - Laya Plata NP - 05/26/2024 7:54 AM EST Insurance letter to change insuline to deglutide.new rx sent. This was already sent documented in this encounterSullivan County Memorial HospitalRvszbgndlc39-24-5966 Telephone encounter Note* Telephone Encounter - Laya Plata NP - 05/21/2024 3:35 PM EST [facility] for longer supply per pt request [facility] HospitalPicrlzxvwh53-12-1529 Miscellaneous Notes* Telephone Encounter - Laya Plata NP - 05/21/2024 3:35 PM EST [facility] for longer supply per pt request documented in this encounterSullivan County Memorial HospitalZpnrpgpfqh12-63-7583 History of Present illness Narrative* ASAEL Thao [...] Present Illness The patient is an 78-year-old pmdpl-feso-juwumyfl gentleman seen as a new patient to [...] REPAIR COLONOSCOPY 2011 KNEE SURGERY Arthroscopy knee CA REPAIR OF NASAL SEPTUM nasal septoplasty to [...] Positive Cantrell, Neer impingement, positive Whipple, positive Faison's tests are observed. RIGHT SHOULDER The skin is warm, dry, and intact. There is no swelling, atrophy, or deformity. The patient can raise the arm overhead. Full forward elevation, abduction, internal and external rotation. No weakness with internal and external rotation, resisted supination, or forward flexion. Negative Faison's. Negative Neer/Cantrell impingement. Ortho Exam Results Imaging [...] the left shoulder performed 03/31/2024 at the [facility] report and images are reviewed. Glenohumeral [...] & Plan The patient is an 78-year-old hrnck-ydsu-thovoojk male with SLAP tear, rotator cuff tendinosis, [...] note was created using voice recognition through [employer]. documented in this encounterSullivan County Memorial HospitalYpoletqptz96-42-2977 History of Present illness Narrative* Laya Plata NP - 05/08/2024 11:00 AM [...] left shoulder, seen by pain management in [place], they ordered mri of shoulder, saw dr moreland, her referred him to dr bowens, has appt this Skin: Negative. Neurological: Negative for dizziness and headaches. Psychiatric/Behavioral: Negative. Endocrine: See hpi Allergic/Immunologic: Negative for environmental allergies. 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 documented in this encounterSullivan County Memorial HospitalCsacizkamb62-88-5453 Instructions* Patient Instructions* Laya Plata NP - [...] appt in 4 mo documented in this encounterSullivan County Memorial HospitalDlyjqbpasm86-13-8111 Evaluation note* Diagnosis Medicare annual wellness visit, initial- Primary Stage 3a chronic kidney disease (HCC) ([facility]) Primary hypertension ([facility]) Unspecified essential hypertension Mixed hyperlipidemia ([facility]) Mixed hyperlipidemia Type 2 diabetes mellitus with complication ([facility]) Obstructive sleep apnea syndrome Obstructive sleep apnea (adult) (pediatric) Chronic GERD Lumbar spondylosis Lumbosacral spondylosis without myelopathy Degeneration of intervertebral disc of lumbar region, unspecified whether pain present Arthritis, multiple joint involvement Unspecified arthropathy, multiple sites Environmental and seasonal allergies Vitamin D deficiency CPAP (continuous positive airway pressure) dependence Dependence on other enabling machine documented in this encounter [facility] HospitalSnarhyipcm19-85-1142 History of Present illness Narrative* Laya Plata NP - 05/01/2024 5:48 PM EST Lab orders created documented in this encounterSullivan County Memorial HospitalKxjkxchzfd71-94-7474 History of Present illness Narrative* January Eldridge [...] REPAIR COLONOSCOPY 2010 KNEE SURGERY Arthroscopy knee CA REPAIR OF NASAL SEPTUM nasal septoplasty to [...] grossly intact. He does have a positive Faison's for pain, no click. No crepitance noted. [...] the left shoulder. This is from the [facility]. He does have some rotatorcuff thinning [...] 04/25/2024 5:32 PM EST documented in this encounterSullivan County Memorial HospitalVixzcroayp79-67-2397 Telephone encounter Note* Telephone Encounter - Laya Plata NP - 04/14/2024 11:47 AM EST noted [facility] HospitalPvxqgjiaar27-03-2261 Miscellaneous Notes* Telephone Encounter - Laya Plata NP - 04/14/2024 11:47 AM EST noted * Telephone Encounter - Lindsay Diaz MA - 04/14/2024 10:49 AM EST Patient was in for an appointment with derm and on his way out he asked me to let you know: he has an appointment with Dr. Brown on 04/24/2024 re: the left shoulder documented in this encounterSullivan County Memorial HospitalTckvkemftk77-15-6051 Telephone encounter Note* Telephone Encounter - Lindsay Diaz MA - 04/14/2024 10:49 AM EST Patient was in for an appointment with derm and on his way out he asked me to let you know: he has an appointment with Dr. Brown on 04/24/2024 re: the left shoulder [facility] HospitalZliflqdcge52-96-8248 History of Present illness Narrative* PAPI Johnson [...] cosmetic reasons. 4. Actinic keratosis Left [place] Erythematous scaly papule Patient was counseled regarding [...] limited to risks of scarring, darker or senior corporate accountant pigmentary changes, recurrence, incomplete removal and infection. [...] tenderness Cryotherapy, skin lesion - Left [place] 5. Lichen simplex chronicus Right Dorsal Hand [...] Next Visit: 1 year documented in this encounterSullivan County Memorial HospitalMfufkofije97-58-0652 History of Present illness Narrative* Laya Plata, [...] 25 mg, Oral, Every morning [facility] [place] 32G X 4 MM misc Inject under [...] REPAIR COLONOSCOPY 2010 KNEE SURGERY Arthroscopy knee CA REPAIR OF NASAL SEPTUM nasal septoplasty to [...] visit: Type 2 diabetes mellitus with complication ([facility]) Comments: 8% to 10.6% , we gave him farxiga 10mg #28 samples, sent to [facility] for brenzavvy (sglt2) rec some [...] recheck 3.5 mo . documented in this [facility]10-14-2024 Instructions* Patient Instructions* Laya Plata NP - 01/17/2024 10:30 AM EDT Farxiga 10mg per day with samples for now Brenzavvy is the new medication, one daily from the [facility] pharmacy Call if any issues getting this Check aic again in 3 mo documented in this [facility]10-07-2024 Telephone encounter Note* Telephone Encounter - Laya Plata NP - 01/10/2024 11:24 AM EDT Sent as requested [facility] HospitalQlzjskxyze03-91-6107 Miscellaneous Notes* Telephone Encounter - Laya Plata NP - 01/10/2024 11:24 AM EDT Sent as requested * Telephone Encounter - Lindsay Diaz MA - 01/10/2024 10:35 AM EDT Refill Atorvastatin 40mg --med loaded [facility] documented in this [facility]10-07-2024 Telephone encounter Note* Telephone Encounter - Lindsay Diaz MA - 01/10/2024 10:35 AM EDT Refill Atorvastatin 40mg --med loaded [facility] HospitalCnbgllqxmf27-15-7628 History of Present illness Narrative* PAPI Johnson [...] limited to risks of scarring, darker or senior corporate accountant pigmentary changes, recurrence, incomplete removal and infection. [...] Next Visit: as scheduled documented in this encounterSullivan County Memorial HospitalYuuppqtblz69-10-1345 Telephone encounter Note* Telephone Encounter - Laya Plata NP - 12/13/2023 11:48 AM EDT Sent as requested [place] [id number] Miscellaneous Notes* Telephone Encounter - Laya Plata NP - 12/13/2023 11:48 AM EDT Sent as requested * Telephone Encounter - Lindsay Diaz MA - 12/13/2023 10:22 AM EDT He would like a refill on Omeprazole and Lisinopril to [facility] [place] in [place] [id number] Telephone encounter Note* Telephone Encounter - Lindsay Diaz MA - 12/13/2023 10:22 AM EDT He would like a refill on Omeprazole and Lisinopril to [facility] [place] [id number] Telephone encounter Note* Telephone Encounter - Laya Plata NP - 12/09/2023 1:38 PM EDT Sent as requested [place] [id number] Miscellaneous Notes* Telephone Encounter - Laya Plata NP - 12/09/2023 1:38 PM EDT Sent as requested * Telephone Encounter - Oneida Noel - 12/09/2023 11:56 AM EDT PT requesting refill on fluticasone, please send to [facility] documented in [place] [id number] Telephone encounter Note* Telephone Encounter - Oneida Noel - 12/09/2023 11:56 AM EDT PT requesting refill on fluticasone, please send to [facility] Gmsrbqmbmg90-06-2361 History of Present illness Narrative* PAPI Johnson [...] limited to risks of scarring, darker or senior corporate accountant pigmentary changes, recurrence, incomplete removal and infection. [...] Visit: 6 weeks ([place]) documented in this encounterSullivan County Memorial HospitalDoanwglcjf67-57-6352 NoteCONSULTATION CONSULTATION DATE: 04/23/2022 HISTORY OF PRESENT [...] patient will contact the office as needed.[facility]Rxczwval22-52-5606 NoteCONSULTATION CONSULTATION DATE: 03/19/2022 HISTORY OF PRESENT [...] be followed up in the clinic thereafter.[facility] HospitalXbiqtrku64-28-8761 NoteOPERATIVE NOTE OPERATION DATE:07/22/2021 PREOPERATIVE DIAGNOSIS: Left [...] Will be followed up in the office. [facility] Signed and Approved by: DR ABNER WASHINGTON . 07/29/2021 12:16:00[facility]04-13-2022 NotePROCEDURE: XR SHOULDER LT 2V or > [...] Electronically authenticated by: OTF LIAO Date: 2021-07-16 15:31[facility]04-13-2022 NoteCONSULTATION PAIN MANAGEMENT CONSULTATION HISTORY [...] plan of care and all questions answered. [facility] Signed and Approved by: JESSE WOOD . 07/17/2021 16:20[facility]00[facility] Diagnosis Pre-op testing Preoperative examination, unspecified Screening for colon cancer Special screening for malignant neoplasms, colon documented in this encounter [employer]: evaluation note* Diagnosis Actinic keratosis- [...] encounter [facility]* Diagnosis Primary hypertension ([facility]) Unspecified essential hypertension documented in this encounter [facility]* Diagnosis Segundo angioma- Primary Actinic keratosis documented in this encounter [facility]* Diagnosis Environmental and seasonal allergies documented in this encounter [facility]* Diagnosis Primary hypertension ([facility]) Unspecified essential hypertension Chronic GERD [...] mellitus with other specified complication, unspecified whether senior living insulin use ([facility]) documented in this encounter [facility]* Diagnosis Elevated glucose- Primary Other abnormal glucose Essential hypertension ([facility]) Unspecified essential hypertension Elevated cholesterol ([facility]) Pure hypercholesterolemia Type 2 diabetes mellitus with complication ([facility]) Mixed hyperlipidemia ([facility]) Mixed hyperlipidemia documented in this encounter [facility]* Diagnosis Left shoulder pain, unspecified chronicity- Primary documented in this encounter [facility]* Diagnosis Type 2 diabetes mellitus with other specified complication, unspecified whether tourism radio presenter insulin use ([facility]) documented in this encounter [facility]* Diagnosis Chronic GERD Primary hypertension ([facility]) Unspecified essential hypertension documented in this encounter [facility]* Diagnosis Primary hypertension ([facility]) Unspecified essential hypertension documented in this encounter [facility]* Diagnosis Left shoulder pain, unspecified chronicity- Primary documented in this encounter [facility]* Diagnosis Environmental and seasonal allergies documented in this encounter [facility]* Diagnosis Type 2 diabetes mellitus with complication ([facility])- Primary Primary hypertension ([facility]) Unspecified essential hypertension Stage 3a chronic kidney disease (HCC) ([facility]) CPAP (continuous positive airway pressure) [...] RecordedPatient RepresentativeExplanationAdvance Directives and Living WillPower of AttorneyNameReLone Peak Hospitalealthcare Agent [facility] HospitalCommunicationKosciusko Community Hospital Decision Maker* TypeDate RecordedPatient RepresentativeExplanationAdvance Directives and Living [id number]_PEQDfesPntr RecordedPatient RepresentativeExplanation Advance Directives and Living Will_DNR History of Present Illness * Danay Can, PT - 03/19/2020 8:30 AM EST [facility] Outpatient Physical Therapy Evaluation Date: 03/19/2020 Patient: Tony Starks : 1945 Referring Practitioner: Dr. Pretty Moreland Referral Date : 03/14/20 Diagnosis: R shoulder IS, AC, OA Treatment Diagnosis: R shoulder pain Onset Date: 03/14/20 PT Insurance Information: [facility] Total # of Visits Approved: 18 Per [...] 45deg of IR to improve dressing kenrick. former hand goals Time Frame for former hand goals : 15 visits(POC Exp 04/30/19) [facility] goal 1: Pt to score >51/80 on UEFS to improve ADL kenrick [facility] goal 2: Pt to have ER of 55deg to improve upper body dressing. former hand goal 3: Pt to have 4/5 Horiz [...] Singh PTA - 03/21/2020 10:30 AM EST [facility] Outpatient Physical Therapy Daily Note Date: 03/21/2020 Patient Name: Tony Starks : 1945 (74 y.o.) Referring Practitioner: Dr. Pretty Moreland Referral Date : 03/14/20 Diagnosis: R shoulder IS, AC, OA Treatment Diagnosis: R shoulder pain Onset Date: 03/14/20 PT Insurance Information: [facility] Total # of Visits Approved: 18 Per [...] 45deg of IR to improve dressing kenrick. Skilled Nursing Goals - Time Frame for former hand goals : 15 visits(POC Exp 04/30/19) former hand goal 1: Pt to score >51/80 on UEFS to improve ADL kenrick [facility] goal 2: Pt to have ER of 55deg to improve upper body dressing. former hand goal 3: Pt to have 4/5 Horiz [...] Can, PT - 03/26/2020 10:15 AM EST [facility] Outpatient Physical Therapy Daily Note Date: 03/26/2020 Patient Name: Tony Starks : 1945 (74 y.o.) Referring Practitioner: Dr. Pretty Moreland Referral Date : 03/14/20 Diagnosis: R shoulder IS, AC, OA Treatment Diagnosis: R shoulder pain Onset Date: 03/14/20 PT Insurance Information: [facility] Total # of Visits Approved: 18 Per [...] 45deg of IR to improve dressing kenrick. [employer] Goals - Time Frame for [facility] goals : 15 visits(POC Exp 04/30/19) [facility] goal 1: Pt to score >51/80 on UEFS to improve ADL kenrick [facility] goal 2: Pt to have ER of 55deg to improve upper body dressing. former hand goal 3: Pt to have 4/5 Horiz ABD strength to improve pt posture. former hand goal 4: Pt to have 4/5 ER strength without pain to improve ADL kenrick. Post Treatment Pain: 04/14 Time In: 1019 Time Out: 1059 Timed Code Treatment Minutes: 40 Minutes Total Treatment Time: 40 Minutes Danay Can PT Date: 03/26/2020 documented in this encounter* Jessica Albarado, PT - 03/27/2020 2:30 PM EST [facility] Outpatient Physical Therapy Daily Note Date: 03/27/2020 Patient Name: Tony Starks : 1945 (74 y.o.) Referring Practitioner: Dr. Pretty Moreland Referral Date : 03/14/20 Diagnosis: R shoulder IS, AC, OA Treatment Diagnosis: R shoulder pain Onset Date: 03/14/20 PT Insurance Information: [facility] Total # of Visits Approved: 18 Per [...] 45deg of IR to improve dressing kenrick. Skilled Nursing Goals - Time Frame for former hand goals : 15 visits(POC Exp 04/30/19) former hand goal 1: Pt to score >51/80 on [...] 03/27/2020 documented in this encounter* Rosalino Singh, FRUIT OR NUT GROWER - 04/09/2020 10:30 AM EST [facility] Outpatient Physical Therapy Daily Note Date: 04/09/2020 Patient Name: Tony Starks : 1945 (74 y.o.) Referring Practitioner: Dr. Pretty Moreland Referral Date : 03/14/20 Diagnosis: R shoulder IS, AC, OA Treatment Diagnosis: R shoulder pain Onset Date: 03/14/20 PT Insurance Information: [facility] Total # of Visits Approved: 18 Per [...] IR to improve dressing kenrick. - MET [employer] Goals - Time Frame for [facility] goals : 15 visits(POC Exp 04/30/19) [facility] goal 1: Pt to score >51/80 on UEFS to improve ADL knerick former hand goal 2: Pt to have ER of 55deg to improve upper body dressing. - MET [facility] goal 3: Pt to have 4/5 Horiz ABD strength to improve pt posture. former hand goal 4: Pt to have 4/5 ER strength without pain to improve ADL kenrick. Post Treatment Pain: 2-3/10 Time In: 1030 Time Out : 1115 Timed Code Treatment Minutes: 45 Minutes Total Treatment Time: 45 Minutes Rosalino SinghKULWANT Date: 04/09/2020 documented in this encounter* Danay Cna, PT - 04/11/2020 10:30 AM EST [facility] Outpatient Physical Therapy Daily Note Date: 04/11/2020 Patient Name: Tony Starks : 1945 (74 y.o.) Referring Practitioner: Dr. Pretty Moreland Referral Date : 03/14/20 Diagnosis: R shoulder IS, AC, OA Treatment Diagnosis: R shoulder pain Onset Date: 03/14/20 PT Insurance Information: [facility] Total # of Visits Approved: 18 Per [...] IR to improve dressing kenrick. - MET [employer] Goals - Time Frame for former hand goals : 15 visits(POC Exp 04/30/19) [facility] goal 1: Pt to score >51/80 on UEFS to improve ADL kenrick former hand goal 2: Pt to have ER of 55deg to improve upper body dressing. - MET [facility] goal 3: Pt to have 4/5 Horiz ABD strength to improve pt posture. former hand goal 4: Pt to have 4/5 ER strength without pain to improve ADL kenrick. Post Treatment Pain: 05/15 Time In: 1030 Time Out : 1113 Timed Code Treatment Minutes: 43 Minutes Total Treatment Time: 43 Minutes Danay Can, PT Date: 04/11/2020 documented in this encounter* Benitez Bobo - 04/15/2020 10:30 AM EST [facility] Outpatient Physical Therapy Progress Report Date: 04/15/2020 Patient: Tony Starks : 1945 Referring Practitioner: Dr. Pretty Moreland Referral Date : 03/14/20 Diagnosis: R shoulder IS, AC, OA Treatment Diagnosis: R shoulder pain Onset Date: 03/14/20 PT Insurance Information: [facility] Total # of Visits Approved: 18 Per [...] - MET [facility] goals Time Frame for former hand goals : 15 visits(POC Exp 04/30/19) former hand goal 1: Pt to score >51/80 on UEFS to improve ADL kenrick former hand goal 2: Pt to have ER of 55deg to improve upper body dressing. - MET [facility] goal 3: Pt to have 4/5 Horiz ABD strength to improve pt posture. former hand goal 4: Pt to have 4/5 ER strength without pain to improve ADL kenrick. Benitez Bobo, SPTA/Directly Supervised By:Danay Can, PT Date: 04/15/2020 * Benitez Bobo - 04/15/2020 10:30 AM EST [facility] Outpatient Physical Therapy Daily Note Date: 04/15/2020 Patient Name: Tony Starks : 1945 (74 y.o.) Referring Practitioner: Dr. Pretty Moreland Referral Date : 03/14/20 Diagnosis: R shoulder IS, AC, OA Treatment Diagnosis: R shoulder pain Onset Date: 03/14/20 PT Insurance Information: [facility] Total # of Visits Approved: 18 Per [...] IR to improve dressing kenrick. - MET [employer] Goals - Time Frame for [facility] goals : 15 visits(POC Exp 04/30/19) former hand goal 1: Pt to score >51/80 on UEFS to improve ADL kenrick [facility] goal 2: Pt to have ER of 55deg to improve upper body dressing. - MET [facility] goal 3: Pt to have 4/5 Horiz ABD strength to improve pt posture. former hand goal 4: Pt to have 4/5 ER [...] Worthington, PT - 05/29/2020 11:00 AM EST [facility] Outpatient Physical Therapy Evaluation Date: 05/29/2020 Patient: Tony Starks : 1945 Referring Practitioner: Dr. Pretty Moreland Referral Date : 05/23/20 Diagnosis: R shoulder scope, LHB debridment, SAD, RCR Treatment Diagnosis: R shoulder pain s/p RTC sx Onset Date: 05/09/20 PT Insurance Information: [facility] Total # of Visits Approved: 18 Per [...] improved functional activitities with UEFS score >50/80 former hand goal 2: Pt to demonstrate 135deg AROM shoulder flexion to improve ability to reach into cupboards former hand goal 3: Pt to demonstrate 4/5 shoulder [...] Worthington, PT - 06/05/2020 10:30 AM EST [facility] Outpatient Physical Therapy Daily Note Date: 06/05/2020 Patient Name: Tony Starks : 1945 (74 y.o.) Referring Practitioner: Dr. Pretty Moreland Referral Date : 05/23/20 Diagnosis: R shoulder scope, LHB debridment, SAD, RCR Treatment Diagnosis: R shoulder pain s/p RTC sx Onset Date: 05/09/20 PT Insurance Information: [facility] Total # of Visits Approved: 18 Per [...] increase PROM R shld flexion 145 degrees Skilled Nursing Goals - Time Frame for [facility] goals : 18 visits former hand goal 1: Pt to have improved functional activitities with UEFS score >50/80 former hand goal 2: Pt to demonstrate 135deg AROM [...] Worthington, PT - 06/07/2020 11:15 AM EST [facility] Outpatient Physical Therapy Daily Note Date: 06/07/2020 Patient Name: Tony Starks : 1945 (74 y.o.) Referring Practitioner: Dr. Pretty Moreland Referral Date : 05/23/20 Diagnosis: R shoulder scope, LHB debridment, SAD, RCR Treatment Diagnosis: R shoulder pain s/p RTC sx Onset Date: 05/09/20 PT Insurance Information: [facility] Total # of Visits Approved: 18 Per [...] increase PROM R shld flexion 145 degrees-Met Skilled Nursing Goals - Time Frame for [facility] goals : 18 visits former hand goal 1: Pt to have improved functional activitities with UEFS score >50/80 former hand goal 2: Pt to demonstrate 135deg AROM shoulder flexion to improve ability to reach into cupboards former hand goal 3: Pt to demonstrate 4/5 shoulder horizontal abd strength to improve ADLs and posture. Post Treatment Pain: 05/15 Time In: 11:15 Time Out : 11:45 Timed Code Treatment Minutes: 30 Minutes Total Treatment Time: 30 Minutes Quynh Worthington, PT Date: 06/07/2020 documented in this encounter* Nathalie Burnham - 06/10/2020 10:30 AM EST Images from the original note were not included. [facility] Outpatient Physical Therapy Daily Note Date: 06/10/2020 Patient Name: Tony Starks : 1945 (74 y.o.) Referring Practitioner: Dr. Pretty Moreland Referral Date : 05/23/20 Diagnosis: R shoulder scope, LHB debridment, SAD, RCR Treatment Diagnosis: R shoulder pain s/p RTC sx Onset Date: 05/09/20 PT Insurance Information: [facility] Total # of Visits Approved: 18 Per [...] increase PROM R shld flexion 145 degrees-Met [employer] Goals - Time Frame for former hand goals : 18 visits former hand goal 1: Pt to have improved functional [...] Total Treatment Time: 35 Minutes Nathalie Burnham FRUIT [employer] N[employer]OWER Date: 06/10/2020 documented in this encounter* Nathalie Burnham - 06/14/2020 11:15 AM EST Images from the original note were not included. [facility] Outpatient Physical Therapy Daily Note Date: 06/14/2020 Patient Name: Tony Starks : 1945 (74 y.o.) Referring Practitioner: Dr. Pretty Moreland Referral Date : 05/23/20 Diagnosis: R shoulder scope, LHB debridment, SAD, RCR Treatment Diagnosis: R shoulder pain s/p RTC sx Onset Date: 05/09/20 PT Insurance Information: [facility] Total # of Visits Approved: 18 Per [...] increase PROM R shld flexion 145 degrees-Met Skilled Nursing Goals - Time Frame for [facility] goals : 18 visits former hand goal 1: Pt to have improved functional [...] Total Treatment Time: 40 Minutes Nathalie Burnham FRUIT [employer] NUT GROWER Date: 06/14/2020 documented in this encounter* Quynh Worthington, PT - 06/19/2020 1:45 PM EDT Images from the original note were not included. [facility] Outpatient Physical Therapy Daily Note Date: 06/19/2020 Patient Name: Tony Starks : 1945 (74 y.o.) Referring Practitioner: Dr. Pretty Moreland Referral Date : 05/23/20 Diagnosis: R shoulder scope, LHB debridment, SAD, RCR Treatment Diagnosis: R shoulder pain s/p RTC sx Onset Date: 05/09/20 PT Insurance Information: [facility] Total # of Visits Approved: 18 Per [...] increase PROM R shld flexion 145 degrees-Met Skilled Nursing Goals - Time Frame for former hand goals : 18 visits [facility] goal 1: Pt to have improved functional activitities with UEFS score >50/80 former hand goal 2: Pt to demonstrate 135deg AROM shoulder flexion to improve ability to reach into cupboards-Met former hand goal 3: Pt to demonstrate 4/5 shoulder horizontal abd strength to improve ADLs and posture. Post Treatment Pain: 05/15 Time In: 13:45 Time Out : 14:15 Timed Code Treatment Minutes: 30 Minutes Total Treatment Time: 30 Minutes Quynh Worthington PT Date: 06/19/2020 documented in this encounter* Alisia Sapp - 06/21/2020 11:15 AM EDT Images from the original note were not included. [facility] Outpatient Physical Therapy Daily Note Date: 06/21/2020 Patient Name: Tony Starks : 1945 (74 y.o.) Referring Practitioner: Dr. Pretty Moreland Referral Date : 05/23/20 Diagnosis: R shoulder scope, LHB debridment, SAD, RCR Treatment Diagnosis: R shoulder pain s/p RTC sx Onset Date: 05/09/20 PT Insurance Information: [facility] Total # of Visits Approved: 18 Per [...] increase PROM R shld flexion 145 degrees-Met [employer] Goals - Time Frame for [facility] goals : 18 visits former hand goal 1: Pt to have improved functional activitities with UEFS score >50/80 former hand goal 2: Pt to demonstrate 135deg AROM shoulder flexion to improve ability to reach into cupboards-Met former hand goal 3: Pt to demonstrate 4/5 shoulder horizontal abd strength to improve ADLs and posture. Post Treatment Pain: 04/14 Time In: 1115 Time Out : 1154 Timed Code Treatment Minutes: 39 Minutes Total Treatment Time: 39 Minutes Alisia Sapp PTA Date: 06/21/2020 documented in this encounter* Alisia Sapp - 06/24/2020 1:45 PM EDT Images from the original note were not included. [facility] Outpatient Physical Therapy Daily Note Date: 06/24/2020 Patient Name: Tony Starks : 1945 (75 y.o.) Referring Practitioner: Dr. Pretty Moreland Referral Date : 05/23/20 Diagnosis: R shoulder scope, LHB debridment, SAD, RCR Treatment Diagnosis: R shoulder pain s/p RTC sx Onset Date: 05/09/20 PT Insurance Information: [facility] Total # of Visits Approved: 18 Per [...] increase PROM R shld flexion 145 degrees-Met [employer] Goals - Time Frame for former hand goals : 18 visits former hand goal 1: Pt to have improved functional activitities with UEFS score >50/80 [facility] goal 2: Pt to demonstrate 135deg AROM shoulder flexion to improve ability to reach into cupboards-Met former hand goal 3: Pt to demonstrate 4/5 shoulder horizontal abd strength to improve ADLs and posture. Post Treatment Pain: 1-2 Time In: 1341 Time Out : 1422 Timed Code Treatment Minutes: 43 Minutes Total Treatment Time: 43 Minutes Alisia Sapp,FRUIT OR NUT GROWER Date: 06/24/2020 documented in this encounter* Quynh Worthington, PT - 06/26/2020 11:15 AM EDT Images from the original note were not included. [facility] Outpatient Physical Therapy Progress Report Date: 06/26/2020 Patient: Tony Starks : 1945 Referring Practitioner: Dr. Pretty Moreland Referral Date : 05/23/20 Diagnosis: R shoulder scope, LHB debridment, SAD, RCR Treatment Diagnosis: R shoulder pain s/p RTC sx Onset Date: 05/09/20 PT Insurance Information: [facility] Total # of Visits Approved: 18 Per [...] increase PROM R shld flexion 145 degrees-Met former hand goals Time Frame for [facility] goals : 18 visits former hand goal 1: Pt to have improved functional activitities with UEFS score >50/80 [facility] goal 2: Pt to demonstrate 135deg AROM shoulder flexion to improve ability to reach into cupboards-Met [facility] goal 3: Pt to demonstrate 4/5 shoulder horizontal abd strength to improve ADLs and posture. Nathalie Burnham FRUIT OR NUT GROWER Date: 06/26/2020 * Nathalie Burnham - 06/26/2020 11:15 AM EDT Images from the original note were not included. [facility] Outpatient Physical Therapy Daily Note Date: 06/26/2020 Patient Name: Tony Starks : 1945 (75 y.o.) Referring Practitioner: Dr. Pretty Moreland Referral Date : 05/23/20 Diagnosis: R shoulder scope, LHB debridment, SAD, RCR Treatment Diagnosis: R shoulder pain s/p RTC sx Onset Date: 05/09/20 PT Insurance Information: [facility] Total # of Visits Approved: 18 Per [...] increase PROM R shld flexion 145 degrees-Met Skilled Nursing Goals - Time Frame for [facility] goals : 18 visits [facility] goal 1: Pt to have improved functional activitities with UEFS score >50/80 former hand goal 2: Pt to demonstrate 135deg AROM shoulder flexion to improve ability to reach into cupboards-Met [facility] goal 3: Pt to demonstrate 4/5 shoulder horizontal abd strength to improve ADLs and posture. Post Treatment Pain: 05/15 Time In: 1112 Time Out : 1150 Timed Code Treatment Minutes: 38 Minutes Total Treatment Time: 38 Minutes Nathalie Burnham FRUIT OR NUT GROWER Date: 06/26/2020 documented in this encounter* Alisia Sapp - 07/01/2020 11:15 AM EDT Images from the original note were not included. [facility] Outpatient Physical Therapy Daily Note Date: 07/01/2020 Patient Name: Tony Starks : 1945 (75 y.o.) Referring Practitioner: Dr. Pretty Moreland Referral Date : 05/23/20 Diagnosis: R shoulder scope, LHB debridment, SAD, RCR Treatment Diagnosis: R shoulder pain s/p RTC sx Onset Date: 05/09/20 PT Insurance Information: [facility] Total # of Visits Approved: 18 Per [...] increase PROM R shld flexion 145 degrees-Met [employer] Goals - Time Frame for former hand goals : 18 visits former hand goal 1: Pt to have improved functional activitities with UEFS score >50/80 former hand goal 2: Pt to demonstrate 135deg AROM shoulder flexion to improve ability to reach into cupboards-Met former hand goal 3: Pt to demonstrate 4/5 shoulder horizontal abd strength to improve ADLs and posture. Post Treatment Pain: 0/10 Time In: 1114 Time Out : 1153 Timed Code Treatment Minutes: 39 Minutes Total Treatment Time: 39 Minutes Alisia Sapp ,FRUIT OR NUT GROWER Date: 07/01/2020 documented in this encounter* Quynh Worthington, PT - 07/03/2020 11:15 AM EDT Images from the original note were not included. [facility] Outpatient Physical Therapy Daily Note Date: 07/03/2020 Patient Name: Tony Starks : 1945 (75 y.o.) Referring Practitioner: Dr. Pretty Moreland Referral Date : 05/23/20 Diagnosis: R shoulder scope, LHB debridment, SAD, RCR Treatment Diagnosis: R shoulder pain s/p RTC sx Onset Date: 05/09/20 PT Insurance Information: [facility] Total # of Visits Approved: 18 Per [...] increase PROM R shld flexion 145 degrees-Met [employer] Goals - Time Frame for former hand goals : 18 visits former hand goal 1: Pt to have improved functional activitities with UEFS score >50/80 [facility] goal 2: Pt to demonstrate 135deg AROM shoulder flexion to improve ability to reach into cupboards-Met former hand goal 3: Pt to demonstrate 4/5 shoulder horizontal abd strength to improve ADLs and posture.-Met Post Treatment Pain: 05/15 Time In: 11:15 Time Out : 11:55 Timed Code Treatment Minutes: 40 Minutes Total Treatment Time: 40 Minutes Quynh Worthington, PT Date: 07/03/2020 documented in this encounter* Alisia Sapp - 07/15/2020 11:15 AM EDT Images from the original note were not included. [facility] Outpatient Physical Therapy Daily Note Date: 07/15/2020 Patient Name: Tony Starks : 1945 (75 y.o.) Referring Practitioner: Dr. Pretty Moreland Referral Date : 05/23/20 Diagnosis: R shoulder scope, LHB debridment, SAD, RCR Treatment Diagnosis: R shoulder pain s/p RTC sx Onset Date: 05/09/20 PT Insurance Information: [facility] Total # of Visits Approved: 18 Per [...] increase PROM R shld flexion 145 degrees-Met Skilled Nursing Goals - Time Frame for [facility] goals : 18 visits [facility] goal 1: Pt to have improved functional activitities with UEFS score >50/80-MET former hand goal 2: Pt to demonstrate 135deg AROM [...] RIGHT WO CONTRAST Pretty Moreland, DO [address] [place] [address] [employer] [facility] [address] [place] [address] SpecialtyDiagnoses / ProceduresReferred By ContactReferred To ContactCardiology Diagnoses Pre-op testing Procedures EKG 12 Lead Back, [place] [address] Referral IDStatusReasonStart DateExpiration DateVisits RequestedVisits [id number] Discharge Instructions * Instructions* Amanda Gillis RN [...] meditation. You may begin using Tylenol or [id number] Ibuprofen or Motrin for pain should you [...] from the original note were not included. [facility] Outpatient Physical Therapy Discharge Summary Patient: Tony Starks : 1945 Referring Practitioner: Dr. Pretty Moreland Diagnosis: R shoulder scope, LHB debridment, SAD, RCR Date Treatment Initiated: 05/29/20 Date of Last Treatment: 07/15/20 PT Visit Information Onset Date: 05/09/20 PT Insurance Information: [facility] Total # of Visits Approved: 18 Total [...] RIGHT WO CONTRAST Pretty Moreland, DO [address] [place] [address] [employer] [facility] [address] [place] [address] StatusReasonSpecialtyDiagnoses / ProceduresReferred By ContactReferred To Contact Diagnoses Unspecified rotator cuff tear or rupture of right shoulder, not specified as traumatic RIGHT SHOULDER ROTATOR CUFF TEAR....BICEP TENDONITIS Procedures CA SHLDR ARTHROSCOP,SURG,W/ROTAT CUFF REPR RIGHT SHOULDER ARTHROSCOPY PROBABLE ROTATOR CUFF REPAIR... LONG HEAD BICEPS TENODESIS Pretty Moreland, DO [address] [place] [address] [facility] [employer] ReasonCommentsFollow-upReasonOnset DateCommentsrefill hdhmouejjsld15/07/2024 ReasonCommentsMed RefillReasonCommentsFollow-upWants to discuss blood sugars. Noticed since off Jardiance his blood sugars have been ranging [phone] DateCommentsMed Rsioob574ReasonOnset FhftGgosfoxqbmytyxz50/09/2024Reason CommentsSkin CheckReasonOnset DateCommentsFYI on left hjgpugtl84/10/2025Reason CommentsMedicare Annual Wellness Visit SubsequentReasonCommentsPainReasonOnset DateCommentsmedication kzwqac2106/05/2024ReasonOnset DateCommentsMed Refill 07/10/2024ReasonCommentsPainReasonOnset DateCommentsMed Tjrkbg8008/30/2024Reason Comments4 months agoReasonOnset DateCommentsMed Ixbkme4409/19/2024ReasonOnset Date Commentsrefill Vmygiwkgid22/02/2025ReasonOnset DateCommentsMed Klnmzl7812/18/2024 ReasonOnset DateCommentsrefill /13/2025ReasonOnset DateCommentsMed Jzfdvu4801/26/2025 Ordered Prescriptions (unrec ognized section and content) [...] DO [address] [place], [place] [id number] PCP - GeneralFamily Medicine11/24/16Team MemberRelationshipSpecialtyStart End Daniel Pop DO [address] [place] [phone] PCP - GeneralFamily Medicine10/14/22 Laya Plata, ELECTROPLATING SALES REPRESENTATIVE [address] [place] [address] PCP - ACO Reach01/04/24 Laya Plata, ELECTROPLATING SALES REPRESENTATIVE [address] [place], [place] [id number] Nurse PractitionerFatnly Medicine10/14/22Team MemberRelationshipSpecialtyStart End Daniel Pop DO [address] [place], [place] [phone] PCP - GeneralFamily Medicine10/14/22 Laya Plata, ELECTROPLATING SALES REPRESENTATIVE [address] [place] [address] PCP - ACO Reach01/04/24 Laya Plata, ELECTROPLATING SALES REPRESENTATIVE [address] [place] [address] Nurse PractitionerFamily Medicine10/14/22Team MemberRelationshipSpecialtyStart DateEnd Daniel Pop, [address] [place] [address] PCP - GeneralFamily Medicine10/14/22 Laya Plata, ELECTROPLATING SALES REPRESENTATIVE [address] [place] [address] PCP - ACO Reach01/04/24 Laya Plata, ELECTROPLATING SALES REPRESENTATIVE [address] [place] [address] Nurse PractitionerFamily Medicine10/14/22Team MemberRelationshipSpecialtyStart DateEnd Date Daniel Pop, [address] [place] [address] PCP - GeneralFamily Medicine10/14/22 Laya Plata, ELECTROPLATING SALES REPRESENTATIVE [address] [place] [address] PCP - ACO Reach01/04/24 Laya Plata, ELECTROPLATING SALES REPRESENTATIVE [address] [place] [address] Nurse PractitionerFamily Medicine10/14/22Team MemberRelationshipSpecialtyStart DateEnd Date Daniel Pop, [address] [place] [address] PCP - GeneralFamily Medicine10/14/22 Laya Plata, ELECTROPLATING SALES REPRESENTATIVE [address] [place] [address] PCP - ACO Reach01/04/24 Laya Plata, ELECTROPLATING SALES REPRESENTATIVE [address] [place] [address] Nurse PractitionerFamily Medicine10/14/22Team MemberRelationshipSpecialtyStart DateEnd Date Daniel Pop, DO [address] [place] [address] PCP - GeneralFamily Medicine10/14/22 Daniel Pop, DO [address] [place] [address] PCP - ACO Reach06/04/23 Laya Plata, ELECTROPLATING SALES REPRESENTATIVE [address] [place] [address] Nurse PractitionerBuena Vista Regional Medical Centerly Medicine10/14/22Team MemberRelationshipSpecialtyStart DateEnd Date Daniel Pop, DO [address] [place] [address] PCP - GeneralFamily Medicine10/14/22 Daniel Pop, [address] [place] [address] PCP - ACO Reach06/04/23 Laya Plata, ELECTROPLATING SALES REPRESENTATIVE [address] [place] [address] Nurse PractitionerFatnly Medicine10/14/22Team MemberRelationshipSpecialtyStart DateEnd Date Daniel Pop, [address] [place] [address] PCP - GeneralFamily Medicine10/14/22 Daniel Pop DO [address] [place] [address] PCP - ACO Reach06/04/23 Laya Plata, ELECTROPLATING SALES REPRESENTATIVE [address] [place] [address] [facility] Medicine10/14/22Team MemberRelationshipSpecialtyStart DateEnd Date Daniel Pop, [address] [place] [address] PCP - GeneralFamily Medicine10/14/22 Daniel Pop, [address] [place] [address] PCP - ACO Reach06/04/23 Laya Plata, ELECTROPLATING SALES REPRESENTATIVE [address] [place] [address] [facility]10/14/22Team MemberRelationshipSpecialtyStart DateEnd Date Daniel Pop, [address] [place] [address] PCP - GeneralFamily Medicine10/14/22 Daniel Pop DO [address] [place] [address] PCP - ACO Reach06/04/23 Laya Plata, ELECTROPLATING SALES REPRESENTATIVE [address] [place] [address] Nurse PractitionerFamily Medicine10/14/22Team MemberRelationshipSpecialtyStart DateEnd Date Daniel Pop, [address] [place] [address] PCP - GeneralFamily Medicine10/14/22 Laya Plata, ELECTROPLATING SALES REPRESENTATIVE [address] [place] [address] PCP - ACO Reach01/04/24 Laya Plata, ELECTROPLATING SALES REPRESENTATIVE [address] [place] [address] Nurse PractitionerBuena Vista Regional Medical Centerly Medicine10/14/22Team MemberRelationshipSpecialtyStart DateEnd Date Daniel Pop, [address] [place] [address] PCP - GeneralFamily Medicine10/14/22 Laya Plata, ELECTROPLATING SALES REPRESENTATIVE [address] [place] [address] PCP - ACO Reach01/04/24 Laay Plata, ELECTROPLATING SALES REPRESENTATIVE [address] [place] [address] Nurse PractitionerFamily Medicine10/14/22Team MemberRelationshipSpecialtyStart DateEnd Date Daniel Pop, [address] [place] [address] PCP - GeneralFamily Medicine10/14/22 Laya Plata, ELECTROPLATING SALES REPRESENTATIVE [address] [place] [address] PCP - ACO Reach01/04/24 Laya Plata L, ELECTROPLATING SALES REPRESENTATIVE [address] [place] [address] Nurse PractitionerBuena Vista Regional Medical Centerly Medicine10/14/22Team MemberRelationshipSpecialtyStart DateEnd Date Daniel Pop, DO [address] [place] [address] PCP - GeneralBuena Vista Regional Medical Centerly Medicine10/14/22 Laya Plata L, ELECTROPLATING SALES REPRESENTATIVE [address] [place] [address] PCP - ACO Reach01/04/24 Laya Plata, ELECTROPLATING SALES REPRESENTATIVE [address] [place] [address] [facility]10/14/22Te MemberRelationshipSpecialtyStart DateEnd Date Daniel Pop, DO [address] [place] [address] [facility] - [facility]10/14/22 Laya Plata, ELECTROPLATING SALES REPRESENTATIVE [address] [place] [address] PCP - ACO Reach01/04/24 Laya Plata L, ELECTROPLATING SALES REPRESENTATIVE [address] [place] [address] Nurse Pract[facility]erB[facility] Medicine10/14/22Te MemberRelationshipSpecialtyStart DateEnd Date Daniel Pop, DO [address] [place] [address] PCP - GeneralBu[facility] Vista [facility] Medical Centerly Medicine10/14/22 Laya Plata L, ELECTROPLATING SALES REPRESENTATIVE [address] [place] [address] PCP - ACO Reach01/04/24 Laya Plata L, ELECTROPLATING SALES REPRESENTATIVE [address] [place] [address] Nurse Pract[facility]erNorth[facility]10/14/22Team MemberRelationshipSpecialtyStart DateEnd Date Daniel Pop, DO [address] [place] [address] PCP - [facility]10/14/22 Laya Plata, ELECTROPLATING SALES REPRESENTATIVE [address] [place] [address] PCP - [facility] Reach01/04/24 Laya Plata, ELECTROPLATING SALES REPRESENTATIVE [address] [place] [address] Nurse Pract[facility]erNorth[facility]10/14/22Te MemberRelationshipSpecialtyStart DateEnd Date Daniel Pop, DO [address] [place] [address] PCP - [facility]10/14/22 Laya Plata L, ELECTROPLATING SALES REPRESENTATIVE [address] [place] [address] PCP - ACO [facility]01/04/24 Laya Plata L, ELECTROPLATING SALES REPRESENTATIVE [address] [place] [address] Nurse PractitionerNorth[facility]10/14/22Team MemberRelationshipSpecialtyStart DateEnd Date Daniel Pop, [address] [place] [address] PCP - [facility] Medicine10/14/22 Laya Plata, ELECTROPLATING SALES REPRESENTATIVE [address] [place] [address] PCP - ACO Reach01/04/24 Laya Plata, ELECTROPLATING SALES REPRESENTATIVE [address] [place] [address] Nurse Pract[facility]erNorth[facility]10/14/22Te MemberRelationshipSpecialtyStart DateEnd Date Daniel Pop, [address] [place] [address] PCP - [facility] Medicine10/14/22 Laya Plata, ELECTROPLATING SALES REPRESENTATIVE [address] [place] [address] PCP - O Reach01/04/24 Laya Plata, ELECTROPLATING SALES REPRESENTATIVE [address] [place] [address] Nurse PractitionerNorth[facility]10/14/22Te MemberRelationshipSpecialtyStart DateEnd Date Daniel Pop, DO [address] [place] [address] PCP - [facility] Medicine10/14/22 Laya Plata, ELECTROPLATING SALES REPRESENTATIVE [address] [place] [address] PCP - ACO Reach01/04/24 Laya Plata, ELECTROPLATING SALES REPRESENTATIVE [address] [place] [address] Nurse PractitionerNorth[facility]10/14/22Te MemberRelationshipSpecialtyStart DateEnd Date Daniel Pop, [address] [place] [id number] PCP - [facility]10/14/22 Laya Plata, ELECTROPLATING SALES REPRESENTATIVE [address] [place] [id number] [facility] Reach01/04/24 Laya Plata, ELECTROPLATING SALES REPRESENTATIVE [address] [place] [id number] [facility] Pract[facility]erNorth[facility]10/14/22Te MemberRelationshipSpecialtyStart DateEnd Date Daniel Pop, [address] [place] [address] PCP [facility]10/14/22 Laya Plata, ELECTROPLATING SALES REPRESENTATIVE [address] [place] [id number] [facility]01/04/24 Laya Plata, ELECTROPLATING SALES REPRESENTATIVE [address] [place] [id number] [facility] Pract[facility] Medicine10/14/22 (unrecognized sect ion and content) No Status Records FoundNo Status Records FoundNo Status Records FoundNo Status Records Found INFORMATION SOURCE (unrecogn ized section and content) DATE CREATED AUTHOR 04/29/2022 [facility] DATE CREATED AUTHOR AUTHOR'S ORGANIZ ATION 06/19/2023 [facility] DATE CREATED AUTHOR AUTHOR'S ORGANIZ ATION 01/08/2025 [facility] DATE CREATED AUTHOR AUTHOR'S ITZ ATION 01/27/2025 [facility] FOR RECORDS PERTAINING TO PATIENTS WHO [...] BE BASED ON THE PRIMARY CLINICAL RECORDS. [employer] provides no warranty or guarantee of the accuracy or completeness of information in this document.
--- NOTE | 2025-03-08 10:53 | PM.CN ---
Consult Note: HPI Data of Consult Patient: known to practice within the last 3 years Consult date: 03/08/25 Requesting Physician: Fariha Meehan NP Primary Care Provider: Laya Thompson RN, [employer] Consult Narrative Reason for consult: left shoulder pain/oa Narrative: Tony Starks a pleasant 79 year old male with chronic left shoulder pain secondary to oa presents for evaluation of pain post left suprascapular/axillary RFA with >80% improvement ongoing. pt sparingly utilizing tylenol #3 since RFA, has not needed. does find benefit when needed. cc:: CC: Fariha Meehan NP Review of Systems ROS Musculoskeletal Reports: joint pain PFSH PFSH Medical History (Updated 03/01/24 @ 10:40 by Shannon Pérez, GERMAN) Osteoarthritis ?M19.90 - Unspecified osteoarthritis, unspecified site (ICD-10) Low back pain ?M54.50 - Low back pain, unspecified (ICD-10) Hearing deficit ?H91.90 - Unspecified hearing loss, unspecified ear (ICD-10) High cholesterol ?E78.00 - Pure hypercholesterolemia, unspecified (ICD-10) Hypertension ?I10 - Essential (primary) hypertension (ICD-10) Diabetes 1.5, managed as type 2 ?E13.9 - Other specified diabetes mellitus without complications (ICD-10) Sleep apnea ?G47.30 - Sleep apnea, unspecified (ICD-10) Surgical History (Updated 03/01/24 @ 10:40 by Shannon Pérez, GERMAN) History of uvulopalatopharyngoplasty ?Z98.890 - Other specified postprocedural states (ICD-10) H/O arthroscopic knee surgery ?Z98.890 - Other specified postprocedural states (ICD-10) H/O nasal septoplasty ?Z98.890 - Other specified postprocedural states (ICD-10) Meds Home Medications and Allergies Home Medications ?Medication ?Instructions ?Recorded ?Confirmed ?Type acetaminophen 650 mg 650 mg PO Q12H PRN fever or pain 01/27/23 02/05/25 History tablet,extended release (8 Hour Pain Reliever) apple cider vinegar 600 mg capsule 600 mg PO TID 01/27/23 02/05/25 History aspirin 81 mg tablet,delayed 81 mg PO DAILY 01/27/23 02/05/25 History release (Adult Aspirin Regimen) atenolol 50 mg tablet 50 mg PO DAILY 01/27/23 02/05/25 History cholecalciferol (vitamin D3) 50 50 mcg PO DAILY 01/27/23 02/05/25 History mcg (2,000 unit) tablet (Vitamin D3) famotidine 20 mg tablet 20 mg PO BID 01/27/23 02/05/25 History fluticasone propionate 50 1 spray intranasal BID PRN allergy 01/27/23 02/05/25 History mcg/actuation nasal symptoms spray,suspension (24 Hour Allergy Relief) hydrochlorothiazide 25 mg tablet 25 mg PO DAILY 01/27/23 02/05/25 History insulin degludec 100 unit/mL (3 34 unit subcut DAILY 01/27/23 02/05/25 History mL) subcutaneous pen (Tresiba FlexTouch U-100 insulin) lisinopril 20 mg tablet 20 mg PO BID 01/27/23 02/05/25 History loratadine 10 mg capsule 10 mg PO DAILY 01/27/23 02/05/25 History melatonin 10 mg capsule 10 mg PO DAILY 01/27/23 02/05/25 History multivitamin (Daily Multi-Vitamin 1 tab PO DAILY 01/27/23 02/05/25 History tablet) omeprazole 20 mg capsule,delayed 20 mg PO DAILY 01/27/23 02/05/25 History release zinc 25 mg tablet 25 mg PO DAILY 01/27/23 02/05/25 History ascorbic acid (vitamin C) 500 mg mg PO 03/01/24 History capsule bexagliflozin 20 mg tablet 20 mg PO DAILY 03/01/24 02/05/25 History ([place]) diphenhydramine 25 1 tab PO QPM PRN pain 03/01/24 02/05/25 History mg-acetaminophen 500 mg tablet (Tylenol PM Extra Strength) sitagliptin phosphate 100 mg 100 mg PO DAILY 03/01/24 02/05/25 History tablet (Januvia) acetaminophen 300 mg-codeine 30 mg 1 tab PO BID PRN pain #60 tabs 01/11/25 02/05/25 Rx tablet atorvastatin 40 mg tablet mg 01/22/25 History glucosamine-chondroitin 250 mg-200 2 tab PO BID 01/22/25 02/05/25 History mg tablet diazepam 10 mg tablet (Valium) 10 mg PO ONCE PRN anxiety 02/05/25 02/05/25 History Allergies Allergy/AdvReac Type Severity Reaction Status Date / Time No Known Drug Allergies Allergy Verified 02/05/25 10:36 Exam Constitutional Documenting provider has reviewed patient's vital signs: yes Common normals: no apparent distress, oriented x3 and alert General appearance: cooperative HENMT Common normals: normocephalic, hearing grossly normal bilaterally and moist oral mucous membranes Head and scalp: normocephalic Eye Common normals: PERRL Pupil: PERRL Neck & C-Spine Common normals: full ROM General: normal visual inspection Chest Common normals: inspection of chest normal Respiratory Common normals: normal respiratory effort, no retractions and no use of accessory muscles Extremity Left upper extremity: shoulder joint Other: minimal pain with flexion, extension, rotation. negative empty can test. mild pain with palpation of left AC joint Neuro Common normals: oriented x3 Sensorium/orientation: alert Psych Common normals: mental status grossly normal, thought process normal, cooperative, affect normal, speech normal and activity/motor behavior normal Speech: normal speech Thought process: normal thought process Results Additional Findings Additional findings: If on a controlled substance or opioids, I have checked an [place] report on this patient and there are no aberrancies noted in the prescribing history.??If on a controlled substance or opioid a drug screen was completed and reviewed within the last year, and if there has not been a drug screen completed we ordered one today to monitor higher risk, state monitored pain medication use. As part of providing excellent, safe, comprehensive care, the following was completed at our patient's visit: 1. A medication reconciliation and review to ensure accurate knowledge of current/active medications, including asking our patients to inform us about any [id number] medications or herbal remedies/nutritional supplements/alternative remedies. 2. A review to specifically ensure our patients have had annual screening for screening for depression, screening for tobacco use, and screening for unhealthy alcohol use. For concerning screenings had a discussion with the patient, provided patient education, and recommended follow-up with primary care provider when appropriate. If patient noted with a risk of falling, they received education on strength, gait, and balance training to prevent future risk of falling. Portions of this note may have been carried over from the previous visit and updated as appropriate. Please note this office utilizes paper charting in addition to the electronic medical record. A list of current medications, vitals, and PMH is available there as the clinical staff outside of myself do not have access to [employer] charting during the clinic day operations. As part of providing quality comprehensive care the current medications, vitals, and PMH were reviewed in the paper chart. Assessment and Plan Assessment and Plan (1) Left shoulder pain: (2) Primary osteoarthritis, left shoulder: (3) Chronic use of opiate drug for therapeutic purpose: Plan pain well controlled. can continue tylenol #3 bid prn moderate to severe pain when needed. update UDS for medication monitoring. recommended 3 month f/u for medication management and evaluation however pt would like to f/u as needed as his pain is so well controlled.
== END 2025-03-08 10:22 | disposition home or self-care (01) ==
LOC: PM 10:22
PROVIDERS: PCP Nurse Practitioner; Visit Provider Nurse Practitioner
DX: M25.512 Pain in left shoulder (principal); M19.012 Primary osteoarthritis, left shoulder; Z79.891 Long term (current) use of opiate analgesic
CPT/HCPCS: G0463

== ENCOUNTER 2025-04-02 11:07 | Outpatient (OUT) | payer MEDICARE, OTHER, SELFPAY ==
--- OUTSIDE RECORDS SUMMARY | 2025-04-02 11:10 | XMS_ITS | Clinical Summary ---
Author Organization [facility] Healthcare Address [address] [place] [address] Care Team Providers Care Ssis Ssrs Developer Name Role Phone Colby Whitfield DO Primary Care Provider [phone]- [phone] Laya Thompson TEACHER ADULT EDUCATION Unavailable Laya Thompson TEACHER ADULT EDUCATION Unavailable Allergies No known active allergies Medications [...] mellitus with other specified complication, unspecified whether rat exterminator insulin use (HCC)Inject 34 Units under the [...] insulin (HCC)Daily testing 100 each 5Active Lancets [facility] [place] Indications:Type 2 diabetes mellitus treated with insulin (HCC)1 Units 4 (four) times a day as needed (blood glucose monitoring with insulin) 100 each 1115Active rosuvastatin (Crestor) 10 MG tablet Indications:Mixed hyperlipidemiaTake 1 tablet (10 mg) by mouth Daily 90 tablet 5Active Active Problems ProblemNoted DateDiagnosed DateArthritis, multiple joint fkcokulatrr38/17/2023 Chronic GERD10/19/2022PAP (continuous positive airway pressure) dependence 10/19/2022isc degeneration, lorilq9110/19/2022Mixed vapudmfkyzcdyu06/17/2023 Environmental and seasonal yycsxisgh98/17/2023Lumbar ljfrvigrywm54/17/2023 Obstructive sleep apnea nntzfsvi23/17/2023Stage 3a chronic kidney disease 10/19/2022Vitamin D yfdkfpfovj35/17/2023Type 2 diabetes mellitus with eylsqvpqxbih43/07/2017Primary wekoucmbvvzj98/07/2017 Resolved Problems ProblemNoted DateDiagnosed DateResolved DateAge-related cataract of both eyes /rthritis of right acromioclavicular joint10/19/2022 05/21/2023hronic kidney disease, stage 2 (mild)/3Duodenitis /Erectile xzyegnhaxox19/17/202306/03/2024Hypomagnesemia /02/2024Left carpal tunnel /Nontraumatic tear of right rotator cuff/4Primary osteoarthritis of right wrist/4Problems with owzjwknsmf29/17/202306/4Rupture of right rotator cuff/iabetes mellitus without complication /Rotator cuff syndrome of right ffivcoej59/ Gastroesophageal reflux disease without nnvqkkfksig41 Rryyvqksjztvocewkb85/07/201707/18/2023Sleep apneaType 2 diabetes zgdomqmu29iliary colic Encounters DateTypeDepartmentCare KtbdNewqcmeuaew94/04/2025bstract [address] [place] [address] Laya Thompson NP 02/26/2025 10:30 AM ESTOffice Visit [address] [facility] [place] [phone] Laya Thompson, MERCEDES Cardiac murmur (Primary Dx); Type 2 diabetes mellitus with complication (HCC); Arthritis, multiple joint involvement; Stage 3a chronic kidney disease (CMS-HCC); Mixed hyperlipidemia; Elevated cholesterol; Prostate cancer /24/2025amboo flowsheet [address] [place] [address] Laya Thompson NP 02/26/20256412Hvxays55/23/0037Dwruwg99/21/2025bstract [address] [facility] [place] [address] Laya Thompson NP 02/21/2025bstract [address] [facility] [place] [address] Laya Thompson NP 02/14/2025Telephone [facility] [address] [place] [place] [address] Jessica Gipson ARRT surgery (I called to give surgery information. He said he hasd blocks done and is doing better. He will dana if things change)02/05/2025bstract [address] [facility] [place] [address] Laya Thompson, MERCEDES 01/31/2025bstract [address] [facility] [place] [address] Laya Thompson, TEACHER ADULT EDUCATION 01/28/2025Telephone [place] [address] [place] [address] Laya Thompson, TEACHER ADULT EDUCATION 01/26/2025Refill [address] [place] [address] Deidra Burnette MA Type 2 diabetes mellitus without complication, without long-term current use of insulin (HCC)01/22/2025bstract [place] [address] [place] [address] Laya Thompson, TEACHER ADULT EDUCATION 01/15/2025Telephone [place] [address] [place] [phone] Laya Thompson, TEACHER ADULT EDUCATION refill /09/2025Abstract [address] [place] [address] Laya Thompson, TEACHER ADULT EDUCATION 01/05/2025Refill [address] [place] [phone] Laya Thompson, TEACHER ADULT EDUCATION Type 2 diabetes mellitus with complication (HCC)01/05/2025Refill [address] [place] [phone] Laya Thompson, TEACHER ADULT EDUCATION Type 2 diabetes mellitus with complication (HCC) (Primary Dx)01/04/2025bstract [place] [address] [place] [phone] Laya Thompson, TEACHER ADULT EDUCATION 01/03/2025 11:00 AM EDTOffice Visit [address] [place] [phone] Laya Thompson, TEACHER ADULT EDUCATION Chronic left shoulder pain (Primary Dx); Mixed hyperlipidemia; Type 2 diabetes mellitus with complication (HCC); Stage 3a chronic kidney disease ([facility]-HCC); Primary netkxryhztoe71/01/2025bstract [address] [place] [address] Laya Thompson, TEACHER ADULT EDUCATION 01/03/2025amboo flowsheet [facility] [address] [place] [address] Laya Thompson, TEACHER ADULT EDUCATION 01/03/2025Travelfrom Last 3 Months Immunizations ImmunizationAdministration DatesNext DueInfluenza, High Dose Seasonal, Preservative Free03/02/2018,01/07/2017Influenza, High-dose Seasonal, Quadrivalent, Preservative Free03/03/2022,01/01/2021Influenza, injectable, jiuqckrsvygu62/30/2016Influenza, injectable, quadrivalent, preservative free 02/22/2020,03/11/2015Influenza, trivalent, vrbrlcdtim95/21/2020Pneumococcal Conjugate PCV 13105/12/2014Pneumococcal Polysaccharide KKIQ423305/02/2016 Family History Medical HistoryRelationNameCommentsCancerFatherRussell KentOtherFatherRussell Kentbladder cancerNo [...] pure alcohol)I drink a beer once a [id number] Health LiteracyAnswerDate RecordedHow often do you need [...] relatives?Once a week09/04/2024How often do you attend catholic or christianity services?More than 4 times per year09/04/2024Do you belong to any clubs or organizations such as catholic groups, unions, fraternal or athletic groups, or [...] very hard 09/04/2024PHQ-2AnswerDate RecordedPatient Health Questionnaire-2 Score0 05/08/2024[facility] [place] [facility] - Occupational Stress QuestionnaireAnswerDate [...] you engage in exercise at this level?Patient xuvyqcff65/02/2025Hunger Vital SignAnswerDate RecordedWithin the past 12 months, [...] steady place to sleep or slept in br[place]ter (including now)?No01/18/2023Housing Stability Vital SignAnswerDate RecordedIn the last 12 months, was there a time when you were not able to pay the mortgage or rent on time?Patient declined 09/04/2024In the past 12 months, how many times have you moved where you were living?t any time in the past 12 months, were you homeless or living in a skilled nursing (including now)?No09/04/2024Sex and Gender InformationValueDate RecordedSex Assigned at BirthNot on fileLegal IecXdtl8206/17/2022 6:52 PM EDT Gender IdentityNot on fileSexual OrientationNot on file Last Filed Vital Signs Vital SignReadingTime TakenCommentsBlood Eqktpbph059/5802/26/2025 10:37 AM EST Ydkyc147702/26/2025 10:37 AM BSNAgkggskidvd77.6 ??C (97.8 ??F)02/26/2025 10:37 AM ESTRespiratory Hfxy903304/28/2024 10:37 AM ESTOxygen Jgsrgaqfad96%02/26/2025 10:37 AM ESTInhaled Oxygen Concentration--Ezjzvh16.2 kg (163 lb 9.6 oz)02/26/2025 10:37 AM AWLGpadwx435.3 cm (5' 9 )02/26/2025 10:37 AM ESTBody Mass Index24.16 02/26/2025 10:37 AM EST Plan of Treatment DateTypeDepartmentCare Team (Latest Contact Info)Azyoasvmqkj86/16/2026 11:00 AM ESTOffice Visit [facility] [address] [place] [phone] Nicol Ballard, [place] [address] [place] [address] [place] [phone] 05/22/2025 10:30 AM ESTOffice Visit [facility] [address] [place] [address] Laya Thompson TEACHER ADULT EDUCATION [address] [place] [address] Health MaintenanceDue DateLast DoneCommentsDiabetes: Urine Protein Screening , 08/12/2021, 05/30/2020, Additional history existsDiabetes: Hemoglobin A1C509/, 09/01/2024, 05/07/2024, Additional history existsMedicare Annual Wellness (AWV)602/06/2024, 05/21/2023, 04/17/2021 Influenza Vaccine (#1)06/, 01/01/2021, 02/22/2020, Additional history existsPostponed from 12/04/2024 (Patient Refused)Diabetes: Retinopathy Knzdqnrlo80, 06/25/2023, 12/10/2021, Additional history exists Pneumococcal Vaccine: 65+ CvwnsOvszkebfe03/28/2017, 03/11/2015 Procedures Procedure NamePriorityDate/TimeAssociated DiagnosisCommentsHEMOGLOBIN A6QFbljwkt 12/26/2024 8:52 AM EDTDIABETIC RETINOPATHY SCREENING - OU - BOTH EYESRoutine 06/28/2024 8:51 AM EDTMICROALBUMIN / CREATININE URINE EDMRJLhaufta69/09/2024 Type 2 diabetes mellitus with complication (HCC) from Last 3 Months or Most Recently Relevant to Health Maintenance Results * (ABNORMAL) Hemoglobin A1c (12/26/2024 8:52 AM EDT)Specimen (Source)Anatomical Location / LateralityCollection Method / VolumeCollection TimeReceived Time BloodVenous blood specimen / Unknown Narrative Authorizing ProviderResult TypeResult StatusGerri L Rine NPLAB BLOOD ORDERABLES Final Result * Diabetic Retinopathy Screening - OU - Both Eyes (06/28/2024 8:51 AM EDT) Anatomical RegionLateralityModalityHeadOther Narrative Authorizing ProviderResult TypeResult StatusGerri L Rine NPOPHTH PHOTOGRAPHY Final Result * Microalbumin / creatinine, urine ratio (01/12/2024)ComponentValueRef RangeTest MethodAnalysis TimePerformed AtPathologist SignatureMICROALBUMIN, URINE40.7 QUESTALB/CREAT IKQEP842.6QUESTURINE ADHEQ99PKOCAAltnfnkp (Source)Anatomical Location / LateralityCollection Method / VolumeCollection TimeReceived Time UrineUrine specimen obtained by clean catch procedure / Imujmeh0001/12/2024 Narrative Authorizing ProviderResult TypeResult StatusGerri L Rine NPLAB URINE ORDERABLES Final ResultPerforming OrganizationAddressCity/State/ZIP CodePhone Number [facility] from Last 3 Months or Most Recently Relevant to Health Maintenance Insurance Advance Directives TypeDate RecordedPatient RepresentativeExplanationAdvance Directives and Living Will_DNR Care Teams Team MemberRelationshipSpecialtyStart DateEnd Date Colby Whitfield DO [address] [place] [address] PCP - GeneralFamily Medicine10/14/22 Laya Thompson, TEACHER ADULT EDUCATION [address] [place] [phone] PCP - ACO Reach01/04/24 Laya Thompson, TEACHER ADULT EDUCATION [address] [place] [address] Nurse PractitionerFamily Medicine10/14/22
--- OUTSIDE RECORDS SUMMARY | 2025-04-02 11:25 | XMS_ITS | CCD ---
Author Organization [facility] Care Team Providers Care Forming Mill Operator Name Role Phone Daniel Pop Primary Care [...] Unavailable Daniel Pop DO Primary Care Provider [phone] Jay VACUUM DRIER TENDER, Laya L Unavailable Jay VACUUM DRIER TENDER, Laya L Unavailable Daniel Pop DO Unavailable RAMSEY PLATARI L Attending Unavailable BIGG BOWENS Attending Unavailable BIGG BOWENS Referring Unavailable BIGG BOWENS Attending Unavailable BIGG BOWENS Referring Unavailable RAMSEY PLATARI Jermain Attending Unavailable BIGG BOWENS Attending Unavailable BIGG BOWENS Referring Unavailable PALMA SALGADO Attending Unavailable LAYA PLATA Attending Unavailable PALMA SALGADO Attending Unavailable PRETTY MORELAND Referring Unavailable PRETTY MORLEAND Attending Unavailable LAYA PLATA Attending Unavailable Alfredo HARRIS, Ponce Mackenzie Attending Unavailable Medications Current Medications MedicationDrug Class(es)DatesSig (Normalized)Sig (Original)acetaminophen 300 mg / codeine phosphate 30 mg oral tablet (20 sources)Opioid AgonistStart: 79-53-9489fnfdmrggmrgsq-codeine (Tylenol w/ Codeine #3) 300-30 MG tablet 11/10/2024 ActiveStart: 04-12-2024 End: 38-27-4245zhmnpckgmteli-codeine (Tylenol w/ Codeine #3) 300-30 MG tablet 04/12/2024 09/05/2024 Discontinued (Therapy completed)acetaminophen 325 mg / oxyCODONE hydrochloride 5 mg oral tablet (2 sources)Opioid AgonistStart: 05-09-2020 End: 07-22-8030qktj 1-2 tablets by mouth every six hours as needed for pain oxyCODONE-acetaminophen (PERCOCET) 5-325 MG per tablet Indications: Rotator cuff syndrome of right shoulder Take 1-2 tablets by mouth every 6 hours as needed for Pain for up to 3 days. 40 tablet 0 05/09/2020 05/12/2020 Activeamoxicillin 500 mg oral capsule (16 sources)Penicillin-class AntibacterialStart: 85-35-0106wkwvylfcgey (Amoxil) 500 MG capsule Take 500 mg [...] oral tablet (20 sources)beta-Adrenergic BlockerStart: 07-19-2023 End: 39-86-2210bpcf 1 tablet by mouth once dailyatenolol (Tenormin) 50 MG tablet Indications: Primary hypertension Take 1 tablet (50 mg) by mouth Daily 90 tablet 1 01/15/2025 Activetake 1 tablet by mouth once dailyatenolol (TENORMIN) 50 MG tablet Take 50 mg by mouth daily. 0 ActiveBexagliflozin (Brenzavvy) 20 MG tablet (20 sources)Start: 80-68-5440oaem 1 tablet by mouth once dailyBexagliflozin (Brenzavvy) 20 MG tablet Indications: Type 2 diabetes mellitus with complication (HCC) Take 20 mg by mouth Daily 90 tablet 3 01/03/2025 ActiveStart: 01-17-2024 End: 29-01-4643mbly 1 tablet by mouth once dailyBexagliflozin (Brenzavvy) 20 MG tablet Indications: Type 2 diabetes mellitus with complication (HCC) Take 20 mg by mouth Daily 90 tablet 3 01/17/2024 01/03/2025 Discontinued (Reorder)Start: 97-60-1107ljtx 1 tablet by mouth once dailyBexagliflozin (Brenzavvy) 20 MG tablet Indications: Type 2 diabetes mellitus with complication (HCC) Take 20 mg by mouth Daily 90 tablet 3 01/17/2024 ActiveStart: 90-73-1153fkrz 1 tablet by mouth once dailyBexagliflozin (Brenzavvy) 20 MG tablet Indications: Type 2 diabetes mellitus with complication (CMS/HCC) Take 20 mg by mouth Daily 90 tablet 3 01/17/2024 Activecalcium chloride 0.0014 meq/ml / potassium chloride 0.004 meq/ml / sodium chloride 0.103 meq/ml / sodium lactate 0.028 meq/ml injectable solution (1 source)Start: 71-24-8301xabhprvl ringers infusionCALCIUM-VITAMIN D PO (20 sources)CALCIUM-VITAMIN D PO Take by mouth 0 Activecholecalciferol 0.05 mg oral tablet (20 sources)Vitamin Dcholecalciferol (Vitamin D-3) 50 MCG (1999 UT) tablet 1 (one) time each day at the same time Activedocusate sodium 100 mg oral capsule (18 sources)Start: 43-90-3265knxf 1 capsule by mouth twice dailydocusate sodium (COLACE) 100 MG capsule Take 1 capsule by mouth 2 times daily 40 capsule 0 05/09/2020 Activefamotidine 20 mg oral tablet (20 sources)Histamine-2 Receptor AntagonistStart: 06-21-2023 End: 66-38-9877ivmu 1 tablet by mouth in the morningfamotidine (Pepcid) 20 MG tablet Indications: Chronic GERD Take 1 tablet (20 mg) by mouth in the morning and 1 tablet (20 mg) before bedtime. 180 tablet 3 06/05/2024 ActiveStart: 85-11-9128kbovemvnld (PEPCID) 20 MG tabletfluticasone propionate 0.05 mg/actuat metered dose nasal spray (20 sources)CorticosteroidStart: 12-09-2023 End: 32-96-1312klaj 1 spray(s) nasal route once dailyfluticasone (Flonase) 50 MCG/ACT nasal spray Indications: Environmental and seasonal allergies Administer 1 spray into each nostril Daily Shake gently. Before first use, prime pump. After use, clean tip and replace cap. 48 mL 3 12/18/2024 ActiveStart: 01-07-2023 End: 31-68-3245tbkg 1 spray(s) nasal route twice dailyfluticasone (Flonase) 50 MCG/ACT nasal spray Indications: Environmental and seasonal allergies SPRAY ONE SPRAY INTO EACH NOSTRIL TWO TIMES DAILY 48 mL 3 01/07/2023 12/09/2023 Discontinued (Reorder)FLUTICASONE PROPIONATE, NASAL, NA by Nasal route 0 Active hydroCHLOROthiazide 25 mg oral tablet (20 sources)Thiazide DiureticStart: 04-20-2023 End: 76-86-9110hrjf 1 tablet by mouth once dailyhydroCHLOROthiazide (HYDRODiuril) 25 MG tablet Indications: Primary hypertension Take 1 tablet (25 m g) by mouth Daily 90 tablet 3 01/03/2025 04/03/2025 Active3 ml insulin aspart, human 100 unt/ml pen injector (6 sources)Insulin AnalogStart: 77-50-4092pslluxt aspart FlexPen (NovoLOG) 100 UNIT/ML pen Indications: Type 2 diabetes mellitus with complication (HCC) 5 units Once daily before evening meal 1 each 2 01/05/2025 ActiveStart: 01-05-2025 End: 36-70-5124cedxzzx aspart FlexPen (NovoLOG) 100 UNIT/ML pen Indications: Type 2 diabetes mellitus with complication (HCC) Once daily before evening meal 1 each 2 01/05/2025 01/05/2025 Discontinued (Reorder)3 ml insulin degludec 200 unt/ml pen injector (20 sources)Insulin AnalogStart: 09-24-2023 End: 53-24-6009amekqp 34 [IU] by subcutaneous injection in the morninginsulin degludec (Tresiba FlexTouch) 200 UNIT/ML injection Indications: Type 2 diabetes mellitus with other specified complication, unspecified whether cooler deliverer insulin use (HCC) Inject 34 Units under the skin in the morning and 34 Units before bedtime. 27 mL 3 05/21/2024 ActiveInsulin Degludec (TRESIBA SC) Inject 60 Units into the skin nightly 0 Activeinsulin lispro 100 unt/ml injectable solution (3 sources)Insulin AnalogStart: 01-03-2025 End: 44-34-7477Crsbrhg Lispro 100 UNIT/ML solution Indications: Type 2 diabetes mellitus with complication (HCC) Inject 5 Units as directed in the evening. Take before meals 10 mL 1 01/03/2025 01/05/2025 Discontinued (Therapy completed) lisinopril 20 mg oral tablet (20 sources)Angiotensin Converting Enzyme InhibitorStart: 05-24-2023 End: 19-58-7622zynt 1 tablet by mouth in the morninglisinopril 20 MG tablet Indications: Primary hypertension Take 1 tablet (20 mg) by mouth in the morning and 1 tablet (20 mg) before bedtime. 180 tablet 1 12/18/2024 Activetake 2 tablets by mouth twice dailylisinopril (PRINIVIL;ZESTRIL) 10 MG tablet Take 20 mg by mouth 2 times daily 0 Activeloratadine 10 mg oral tablet (20 sources)Start: 03-02-2023 End: 83-67-6762vper 1 tablet by mouth once dailyloratadine (Claritin) 10 MG tablet Indications: Environmental and seasonal allergies Take 1 tablet (10 mg) by mouth Daily 90 tablet 3 08/30/2024 ActiveLORATADINE PO Take 10 mg by mouth 0 Activemagnesium sulfate 0.0277 meq/ml / potassium sulfate 0.0374 meq/ml / sodium sulfate 0.257 meq/ml oral solution (1 source)Start: 70-35-3720fcbyyq-potassium-mag sulfate (SUPREP BOWEL PREP KIT) 17.5-3.13-1.6 GM/177ML SOLN solution Use as directed. 1 each 0 04/20/2022 Active Melatonin (1 source)MELATONIN PO Take by mouth 0 Activemelatonin 3 mg / vitamin b6 10 mg oral tablet (20 sources)Melatonin 3-10 MG tablet Jsbyko32 hr metFORMIN hydrochloride 1000 mg / SITagliptin 50 mg extended release oral tablet (1 source)Biguanide, Dipeptidyl Peptidase 4 InhibitorStart: 82-90-4863WUHOKRZ XR 50-1000 MG TB24 per extended release [...] capsule (20 sources)Proton Pump InhibitorStart: 12-23-2022 End: 74-03-4701fkcc 1 capsule by mouth once dailyomeprazole (PriLOSEC) [...] at 1438, Post-op oxyCODONE (1 source)Opioid AgonistStart: 48-66-2452hzfSUZZZM (ROXICODONE) immediate release tablet 5 mgraNITIdine 150 mg oral capsule (20 sources)Histamine-2 Receptor Antagonisttake 2 capsules by mouth once daily as neededranitidine (ZANTAC) 150 MG capsule Take 300 mg by mouth daily as needed 0 Activerosuvastatin calcium 10 mg oral tablet (7 sources)HMG-CoA Reductase InhibitorStart: 01-03-2025 End: 51-88-6844njgk 1 tablet by mouth once dailyrosuvastatin (Crestor) 10 MG tablet Indications: Mixed hyperlipidemia Take 1 tablet (10 mg) by mouth Daily 30 tablet 1 01/03/2025 07/02/2025 ActiveSITagliptin 100 mg oral tablet (20 sources)Dipeptidyl Peptidase 4 InhibitorStart: 09-17-2023 End: 08-60-5991mlyj 1 tablet by mouth once dailySITagliptin (Januvia) [...] dose on Reny 05/09/20 at 2100, Post-opStart: 93-42-8198flcb 10 mL intravenous route once10 mL, Intravenous, PRN, Line Care, Starting Reny 05/09/20 at 1438 After every IV line use Post-opStart: 47-53-6931meunim chloride flush 0.9 % injection 10 mLZinc (1 source)ZINC PO Take by mouth 0 Activezinc gluconate 30 mg oral tablet (20 sources)zinc 30 MG tablet 1 (one) time each day at the same time Active Completed/Discontinued Medications MedicationDrug Class(es)DatesSig (Normalized)Sig (Original)atorvastatin 40 mg oral tablet (20 sources)HMG-CoA Reductase InhibitorStart: 07-13-2023 End: 33-72-7905vsra 1 tablet by mouth once dailyatorvastatin (Lipitor) [...] at 1047, For 1 doseStart: 12-18-2024 End: 83-94-5534hkiuggrjxljtq acetate-betamethasone sodium phosphate (Celestone) injection 1 mLStart: 05-11-2024 End: mL, Intra-articular, Once PRN Procedure, Starting on Wed05/11/24 at 1535, For 1 doseStart: 05-11-2024 End: 85-31-6215gynraelhpnymi acetate-betamethasone sodium phosphate (Celestone) injection 1 mLceFAZolin 2000 mg injection (1 source)Cephalosporin AntibacterialStart: 05-09-2020 End: 34-10-1495gmJZHhquv (ANCEF) 2000 mg in dextrose 3 % 50 mL IVPB (duplex) dapagliflozin 10 mg oral tablet (8 sources)Sodium-Glucose Cotransporter 2 InhibitorStart: 01-17-2024 End: 03-92-4895azor 1 tablet by mouth once dailydapagliflozin (Farxiga) 10 MG Indications: Type 2 diabetes mellitus with complication (CMS/HCC) Take 1 tablet (10 mg) by mouth Daily 28 tablet 01/17/2024 04/24/2024 Discontinuedinsulin detemir 100 unt/ml injectable solution (18 sources)Insulin Analog End: 68-93-3833udeshpz detemir (LEVEMIR) 100 UNIT/ML injection Inject 52 Units into the skin nightly 0 05/09/2020 Discontinued (LIST CLEANUP)metFORMIN hydrochloride 500 mg oral tablet (18 sources)Biguanide End: 56-38-8584kzue 2 tablets by mouth twice daily at mealtimemetformin (GLUCOPHAGE) 500 MG tablet Take 1,000 mg by mouth 2 times daily (with meals). 0 05/09/2020 Discontinued (Therapy completed)vitamin b6 100 mg oral tablet (20 sources) End: 83-37-2316Uorqykifje HCl (Vitamin B6) 100 MG tablet 1 (one) time each day at the same time. 05/11/2024 Discontinued (Therapy completed)take 2 tablets by mouth once dailyvitamin B-6 (PYRIDOXINE) 50 MG tablet Take 100 mg by mouth daily 0 Active Problems Active Problems Problem ClassificationProblemDateDocumented DateEpisodic/ChronicChronic kidney disease (20 sources)Chronic kidney disease stage 3A ; Translations: [Stage 3a chronic kidney disease (HCC)]Onset: 10-19-2022 Resolved: 778828-58-1840UqxcxelMmpgxzql mellitus with complications (2 sources)Hyperglycemia due to type 2 diabetes mellitus; Translations: [Type 2 diabetes mellitus with hyperglycemia]25-96-3120YhicnthYogkqomo mellitus without complication (20 sources)Type 2 diabetes mellitus; Translations: [Type 2 diabetes mellitus with unspecified complications]Onset: 11-09-2016 Resolved: 552484-74-8017WwxhcclJgrerhng mellitus without complication (1 source)Increased glucose level; Translations: [Other abnormal glucose] 48-65-0387MdhdwmqqUzhoiouur of lipid metabolism (20 sources)Hypercholesterolemia; Translations: [Pure hypercholesterolemia, unspecified]Onset: 11-09-2016 Resolved: 477335-98-0173WexcadiNbprzicelm disorders (20 sources)Gastroesophageal reflux disease without esophagitis; Translations: [Gastro-esophageal reflux disease without esophagitis]Onset: 11-09-2016 Resolved: 701849-23-3906FlopljxZexwuzajs hypertension (20 sources)Hypertensive disorder; Translations: [Essential (primary) hypertension]Onset: 690138-20-2786UobjihqTmidrgotlqu deficiencies (20 sources)Vitamin D deficiency; Translations: [Vitamin D deficiency, unspecified]Onset: 982320-90-7217UmndvmvLxfbo aftercare (1 source)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; Translations: [SNF CURRENT USE OF INSULIN]Onset: 44-01-3679DcfyvfcuQeaph and unspecified benign neoplasm (2 sources)Melanocytic nevus of trunk; Translations: [Melanocytic nevi of trunk] 62-75-4951OhxtpifnRjaqu circulatory disease (1 source)Other specified symptoms and signs involving the circulatory and respiratory systems; Translations:[Other specified symptoms and signs involving the circulatory and respiratory systems]Onset: 28-83-1487HismlounFdtgt connective tissue disease (1 source)Cramp and spasm; Translations: [Cramp and spasm]Onset: 06-15-2023 EpisodicOther connective tissue disease (2 sources)Impingement syndrome of left shoulder region; Translations: [Impingement syndrome of left shoulder]08-17-6187SobiqeilFzqoz connective tissue disease (1 source)Impingement syndrome of right shoulder region; Translations: [Impingement syndrome of right shoulder]Other connective tissue disease (17 sources)Right rotator cuff syndrome; Translations: [Rotator cuff syndrome of right shoulder]Onset: Other inflammatory condition of skin (2 sources)Lichen simplex chronicus; Translations: [Lichen simplex chronicus] 60-29-4171RyjyiaxnVfbwx nervous system disorders (1 source)Other chronic pain; Translations: [OTHER CHRONIC PAIN]Onset: 36-56-3382OogzhrxScomz non-epithelial cancer of skin (2 sources)History of malignant basal cell neoplasm of skin; Translations: [Personal history of other malignant neoplasm of skin]64-75-7603KxjibzfcBhmkk non-traumatic joint disorders (20 sources)Arthropathy of multiple joints; Translations: [Arthropathy, unspecified]Onset: 273205-65-4184OphugcnZyzxg non-traumatic joint disorders (8 sources)Polyarthropathy; Translations: [Arthropathy, unspecified]Onset: 480490-42-5508FhmwiucKakib non-traumatic joint disorders (4 sources)Pain in left hip; Translations: [PAIN IN LEFT HIP]Onset: 03-19-2022 EpisodicOther non-traumatic joint disorders (15 sources)Pain in left shoulder; Translations: [Pain in joint, shoulder region]Onset: 38-11-1347JefjycraMhzix non-traumatic joint disorders (2 sources)Chronic pain of left upper limb; Translations: [Pain in left shoulder]45-29-3615FpbvclaySodjp non-traumatic joint disorders (1 source)Arthritis of joint of right shoulder region; Translations: [Arthritis of right shoulder region]Other skin disorders (6 sources)Actinic keratosis; Translations: [Actinic keratosis]01-10-2024 EpisodicOther skin disorders (2 sources)Seborrheic keratosis; Translations: [Other seborrheic keratosis] 64-40-0769YfnvwtzjRpomf upper respiratory disease (20 sources)Allergic disposition; Translations: [Other allergic rhinitis]Onset: 890656-94-9693NxywsldBuajvrsd codes; unclassified (20 sources)Dependence on continuous positive airway pressure ventilation; Translations: [Dependence on other enabling machines and devices]Onset: 479656-38-0561RhaxfoxSopwzaiu codes; unclassified (20 sources)Obstructive sleep apnea syndrome; Translations: [Obstructive sleep apnea (adult) (pediatric)]Onset: 079902-87-9997FpuzdnuXnacwhzfegz; intervertebral disc disorders; other back problems (20 sources)Sacroiliitis, not elsewhere classified; Translations: [Degeneration of lumbar intervertebral disc]Onset: 16-75-8432GyvskmvLdvnyuxzgoc; intervertebral disc disorders; other back problems (5 sources)Muscle spasm of back; Translations: [Sacrococcygeal disorders, not elsewhere classified]Onset: 67-73-3419VdolsrguPxcpzzl and strains (2 sources)Injury of superior glenoid labrum of shoulder joint; Translations: [Superior glenoid labrum lesion of left shoulder, initial encounter]04-24-2024 EpisodicUnclassified (1 source)Patient encounter status; Translations: [Pre-op chest exam] Unclassified (1 source)LOW BACK PAIN, UNSPECIFIED; Translations: [LOW BACK PAIN, UNSPECIFIED] Onset: 49-69-5551Umuvnvfiwheb (8 sources)Left shoulder pain, unspecified -20-6964 Past or Other Problems Problem ClassificationProblemDateDocumented DateEpisodic/ChronicBiliary tract disease (20 sources)Biliary colic; Translations: [Calculus of bile duct without cholangitis or cholecystitis without obstruction]Onset: 11-17-2013 Resolved: 886715-70-9734AxnkkmojYxzwndzb (20 sources)Bilateral age-related cataract; Translations: [Unspecified age- related cataract]Onset: 10-19-2022 Resolved: 328509-14-6087FpyfdtuJlnurqodw and duodenitis (20 sources)Duodenitis; Translations: [Duodenitis without bleeding]Onset: 10-19-2022 Resolved: 227703-64-4594HwyabfswGizzasxppttvfz (20 sources)Primary osteoarthritis, left shoulder; Translations: [Arthritis of right acromioclavicular joint]Onset: 07-28-2021 Resolved: 457713-85-1388BzesaueEtqtk and unspecified benign neoplasm (2 sources)Senile angioma; Translations: [Hemangioma of skin and subcutaneous tissue]14-73-7941AodzklrjRuuhk connective tissue disease (20 sources)Right rotator cuff syndrome; Translations: [Unspecified rotator cuff tear or rupture of right shoulder, not specified as traumatic]Onset: 05-09-2020 Resolved: 467720-65-2023MtxptbuhDlszq connective tissue disease (1 source)Other shoulder lesions, left shoulder; Translations: [OTHER SHOULDER LESIONS LT SHOULDER]Onset: 03-24-9066HmojpewuFemzs connective tissue disease (20 sources)Nontraumatic rotator cuff tear; Translations: [Unspecified rotator cuff tear or rupture of right shoulder, not specified as traumatic]Onset: 10-19-2022 Resolved: 125456-97-1385SoijfjpiMnatv connective tissue disease (20 sources)Tear of right rotator cuff; Translations: [Unspecified rotator cuff tear or rupture of right shoulder, not specified as traumatic]Onset: 10-19-2022 Resolved: 678294-39-9215HknypnktKdsav gastrointestinal disorders (20 sources)Swallowing finding; Translations: [Dysphagia, unspecified]Onset: 10-19-2022 Resolved: 437818-26-9436RpafpqkyExtjx male genital disorders (20 sources)Male erectile dysfunction, unspecified; Translations: [Impotence of organic origin]Onset: 10-19-2022 Resolved: 379973-67-6397BbfyggkUclvm nervous system disorders (20 sources)Carpal tunnel syndrome of left wrist; Translations: [Carpal tunnel syndrome, left upper limb]Onset: 10-19-2022 Resolved: 339777-84-6756WszoocyVzcvi nutritional; endocrine; and metabolic disorders (20 sources)Hypomagnesemia; Translations: [Hypomagnesemia]Onset: 10-19-2022 Resolved: 253540-06-6092GfhdnoyAzrhndnn codes; unclassified (20 sources)Sleep apnea; Translations: [Sleep apnea, unspecified]Onset: 11-09-2016 Resolved: 064732-11-3021Whudqiz Results Test NameValueInterpretationReference RangeFamercyone des moines medical centerNo Panel Informationon 38-53-7662Yqvaeyq Kaufman, [facility] 12/18/2024 3:39 PM L Inj/Asp: L subacromial bursa on 12/18/2024 10:47 AM Indications: pain Details: 25 G needle, ultrasound-guided Medications: 1 mL betamethasone acetate-betamethasone sodium phosphate 6 (3-3) MG/ML Consent was given by the patient. [facility], ASAEL 12/18/2024 3:39 PM L Inj/Asp: L glenohumeral on 12/18/2024 10:46 AM Indications: pain Details: 25 G needle, ultrasound-guided Medications: 1 mL betamethasone acetate-betamethasone sodium phosphate 6 (3-3) MG/ML Consent was given by the patient. [facility] Shoulder - left 2 Viewson 80-96-3109Imcbcbl Result: X-rays of the left shoulder Grashey [...] type 2 acromion. Visualized lung molina are clear.[facility] Panel Informationon 83-50-6105Bsazaty Kaufman, RAMAKRISHNAT 05/13/2024 10:59 PM L Inj/Asp: L subacromial bursa on 05/11/2024 3:35 PM Indications: pain Details: 25 G needle, ultrasound-guided Medications: 1 mL betamethasone acetate-betamethasone sodium phosphate 6 (3-3) MG/ML Consent was given by the patient. [facility]ip[facility] ARRT 05/13/2024 10:59 PM L Inj/Asp: L glenohumeral on 05/11/2024 3:34 PM Indications: pain Details: 25 G needle, ultrasound-guided Medications: 1 mL betamethasone acetate-betamethasone sodium phosphate 6 (3-3) MG/ML Consent was given by the patient. [facility] Should[facility] - left 2 Viewson 13-74-2288Uhpscntlt Study observation (narrative)[facility] Panel Informationon 04-14-2024 [facility] InformationOrdered By: Birgit Hernandez on 56-45-3070WISNExcelsior Springs Medical Center Panel Informationon 54-44-0049DDHNPerry County Memorial HospitalXR CERVICAL SPINE (4-5 VIEWS)on 96-57-7586DB CERVICAL SPINE (4-5 VIEWS)EXAM: XR CERVICAL SPINE (4-5 VIEWS) HISTORY: Left shoulder pain, unspecified chronicity COMPARISON: None. IMPRESSION: FINDINGS/IMPRESSION: 1. Early anterior osteophyte formation at C5-C6, normal for age. 2. Intervertebral foramina patent. 3. Odontoid normal. 4. Minimal diffuse facet degenerative changes for age. Interpreted by: Cuba Noonan Jr., MD Signed by: Cuba Noonan Jr., MD 03/01/23 Final resultNoUniversity Hospitals Conneaut Medical CenterXR SHOULDER LEFT (MIN 2 VIEWS)on 79-49-9059GD SHOULDER LEFT (MIN 2 VIEWS)EXAM: XR SHOULDER [...] Cuba Noonan Jr., MD 03/01/23 Final resultNormalMercy Southwest [facility] [address] 80-10-1570Ehvyxw Bhug18YAU BON [employer] Work Phone: P [id number] [employer] Phone: P-R [id number] [facility] [employer] Phone: Q-T [id number] [facility] [employer] Phone: QRS Sockphcs26 [facility] [employer] Phone: QTc Calculation (Bazett)396 msHONORHEALTH [facility] [employer] Phone: R [id number] [employer] Phone: T [id number] medic Phone: Ventricular [id number] [employer] Phone: Normal sinus rhythm Minimal voltage criteria for LVH, may be normal variant ( Sokolow-Ashby ) Borderline ECGMHPN [facility] Brian Pierre MD - 04/20/2022 Normal sinus rhythm Minimal voltage criteria for LVH, may be normal variant ( Sokolow-Ashby ) Borderline ECG BON [employer] Phone: [facility] MED[facility] CENTERPlectix [employer] Phone: pOINT OF CARE GLUCOSEon 30-50-3089Egpcroa [Mass/Vol] 177 mg/dLCritically qxil52-401IovBarberton Citizens HospitalComment on above:Performed By: #### POCGLUC #### [facility] [address] [place] [address] Dr. Spencer Diaz-19on 07-52-2276AYLT-CoV-2, RapidNot DetectedNot Detected [email or web address] [place], [place]Comment on above: Rapid NAAT: The specimen [...] management decisions. Fact sheet for Healthcare Providers: https://www.fda.gov/media/097931/download Fact sheet for Patients: https://www.fda.gov/media/015656/download Methodology: Isothermal Nucleic Acid Amplification Source.THROATLakeHealth TriPoint Medical Center, KYGlucose, Whole Bloodon 62-56-0994Fxkwbdr [Mass/Vol]83 mg/dL65 - 99 mg/dLLakeHealth TriPoint Medical Center, KYGlucose [Mass/Vol]99 mg/dL65 - 99 mg/dLLakeHealth TriPoint [facility] Center, KYOtheron 67-25-8642OFBG-CoV-2MSamaritan North Health Center, [place] Basic Metabolic Panelon 51-19-8419Eaxry gap [Moles/Vol]9 mmol/L9 - 17 mmol/L [facility], KYBun/Cre Ilbdz07TzwjkLakeHealth [facility]Point [facility], KYCalcium [Mass/Vol]10.6 mg/dLHigh8.6 - 10.4 mg/dLLakeHealth TriPoint [facility] Center, KYChloride [Moles/Vol]99 mmol/L98 - 107 mmol/LMCommunity Memorial Hospital [place], KYCO2 [Moles/Vol]26 mmol/L20 - 31 mmol/LMMiddletown Hospital- [place], KYCreatinine [Mass/Vol]1.26 mg/dLHigh0.7 - 1.2 mg/dLLakeHealth TriPoint [facility] Center, KYGFR >60>60 mL/minThe [facility] [place], KYGFR Non- Hgzudazh87 mL/minLow>60L[facility], KYGFR/1.73 sq M predicted among non- blacks MDRD (S/P/Bld) [Vol rate/Area][facility], [place]Comment on above: Average GFR for 70 or more years old: 75 mL/min/1.73sq m Chronic Kidney Disease: <60 mL/min/1.73sq m Kidney failure: <15 mL/min/1.73sq m eGFR calculated using average adult body mass. Additional eGFR calculator available at: http://www.NovoED/multiple_crcl_2012.htm GFR/1.73 sq M predicted among non-blacks MDRD (S/P/Bld) [Vol rate/Area]NOT REPORTEDL[facility]Health [facility], KYGlucose [Mass/Vol]155 mg/ePKjka32 - 99 mg/dLLakeHealth [facility]Point [facility], KYInterpretation and review of laboratory resultsAbnormalL[facility]Health [facility], KYPotassium [Moles/Vol]4.5 mmol/L3.7 - 5.3 mmol/LMSamaritan [facility] Center, KYSodium [Moles/Vol]134 mmol/HZne579 - 144 mmol/LMSamaritan North Health Center, KYUrea nitrogen [Mass/Vol]25 mg/dLHigh8 - 23 mg/dLLakeHealth [facility], WVCBC Auto Differentialon 61-20-2228Qyexlvodc (Bld) [#/Vol]0.00 10*3/[facility], [place] Basophils/100 WBC (Bld)0 %0 - 2 %[facility], KYDifferential TypeYESMSamaritan North Health Center, KYEosinophils (Bld) [#/Vol]0.20 10*3/[facility], [place] Eosinophils/100 WBC (Bld)3 %0 - 5 %[facility], KYErythrocyte distribution width (RBC) [Ratio]14.2 %12.1 - 15.2 %[facility], KYHematocrit (Bld) [Volume fraction]43.0 %41 - 53 %[facility], KYHemoglobin (Bld) [Mass/Vol] 14.6 g/dL13.5 - 17.5 g/dLLakeHealth [facility]Point [facility], KYLymphocytes (Bld) [#/Vol]1.70 10*3/[facility], KYLymphocytes/100 WBC (Bld)23 %13 - 44 %[facility] CenterBRIANH (RBC) [Entitic mass]30.9 pg26 - 34 pgLakeHealth [facility]Point [facility], BRIANHC (RBC) [Mass/Vol]33.9 g/dL31 - 37 g/dLLakeHealth [facility], BRIANMCV (RBC) [Entitic vol]91.1 fL80 - 100 fLLakeHealth TriPoint [facility], BRIANMonocytes (Bld) [#/Vol]0.70 10*3/[facility], BRIANMonocytes/100 WBC (Bld)9 %5 - 9 %[facility], BRIANPlatelet mean volume (Bld) [Entitic vol]NOT REPORTED6 - 12 fLLakeHealth [facility]Point [facility], BRIANPlatelets (Bld) [#/Vol]237 10*3/[facility], BRIANPlatelets (Bld) [#/Vol]NOT REPORTED [facility], BRIANRBC (Bld) [#/Vol]4.73 10*6/uL4.5 - 5.9 m/[facility], BRIANRBC morphology finding Nom (Bld)NOT REPORTEDL[facility]Health [facility], BRIANSegmented neutrophils/100 WBC (Bld)65 %39 - 75 %[facility], BRIANSegs Absolute4.90[facility], BRIANWBC (Bld) [#/Vol]NOT REPORTEDper 100 WBCLakeHealth TriPoint [facility] Center, BRIANWBC (Bld) [#/Vol]7.6 10*3/[facility], BRIANWBC MorphologyNOT REPORTEDLakeHealth TriPoint Medical CenterBRIANOtheron 28-17-1758Khhjebpb granulocytes (Bld) [#/Vol]NOT REPORTED [facility], BRIANXR CHEST (2 VW)on 81-74-7769Xesupt mild symmetric emphysematous overinflation. No acute changes.[facility], BRIANEXAM: XR CHEST (2 VW) HISTORY: Reason for exam:->Pre-op for rt shoulder scope. COMPARISON: None.TECHNIQUE: 2 views chest. FINDINGS: Likely mild emphysematous overinflation. Heart size normal. Lungs clear.[facility] CenterRamos, myrna Incoming Radiant Results From [employer] - 05/02/2020 1:56 PM EST EXAM: XR CHEST (2VW) HISTORY: Reason for exam:->Pre-op for rt shoulder scope. COMPARISON: None. TECHNIQUE: 2 views chest. FINDINGS: Likely mild emphysematous overinflation. Heart size normal. Lungs clear. IMPRESSION: Likely mild symmetric emphysematous overinflation. No acute changes. [facility] CenterCALDERON SHOULDER RIGHT WO CONTRASTon . A 1.3 [...] continued clinical follow up to assess for stability.[facility] CenterBRIANCLINICAL HISTORY: Impingement syndrome of right shoulder (M75.41). [...] the glenohumeral joint, with small inferior marginal osteophytes.[facility], Ramos, myrna Incoming Radiant Results From [employer] - 04/24/2020 12:20 PM EST CLINICAL HISTORY: [...] clinical follow up to assess for stability. [facility], KYXR SHOULDER RIGHT (MIN 2 VIEWS)on 91-41-6590Nvoicijg degenerative changes at the acromioclavicular joint with undersurface spurring measuring 7mm, which could contribute to outlet impingement.[facility], BRIAN EXAM: XR SHOULDER RIGHT (MIN 2 VIEWS). HISTORY: M19.011. 74-year-old male, right shoulder pain, arthritis right shoulder region. COMPARISON: None. TECHNIQUE: 3 views right shoulder FINDINGS: Moderateosteoarthritic change acromioclavicular joint with undersurface spurring. Minimal degenerative narrowing at the glenohumeral joint.[facility] CenterRamos Mhpn Incoming Radiant Results From [employer] - 02/23/2020 4:11 PM EST EXAM: XR [...] contribute to outlet impingement. [facility], BRIAN Vital Signs Date TimeVital SignValuePerforming RahirdkliTtanplwo37-66-0005 11:07-0400Body jbtezb313.3 cmLaya Plata [employer]UM D[employer]ER TENDER Work Phone: [phone] HospitalUsnzxlolpz00-27-0843 11:07-0400Body mass index (BMI) [Ratio]23.95 kg/n3TmtbbLaya Plata [employer]ER TENDER Work Phone: [phone] HospitalDnnhvjvgoj39-41-8993 11:07-0400Body temperature 96.69 [degF]Laya Plata [employer] T[employer]ER Work Phone: [phone] HospitalSuorhxrvtq01-10-0776 11:07-0400Body .57 kgLaya Plata [employer] D[employer] TENDER Work Phone: [phone] HospitalLjqrbrpwpn58-71-8912 11:07-0400Diastolic blood xaomdvxq16 mm[Hg]Laya Plata [employer] TENDER Work Phone: [phone] HospitalSgiljqtysh96-90-6099 11:07-0400Heart rate59 /min Laya Rine [employer] T[employer]ER Work Phone: [facility] HospitalPmofnnpdjr22-54-8955 11:07-0400Respiratory rate18 /minGerri Rine V[employer]UM D[employer]ER TENDER Work Phone: [facility] HospitalYlhrrpwnyj09-02-6108 11:07-2689YwE0% (BldA) [Mass fraction]97 %Laya Rine [employer] T[employer]ER Work Phone: [phone] HospitalEztvsxtvcl22-05-6479 11:07-0400Systolic blood jxxolige502 mm[Hg]Laya Rine [employer] T[employer]ER Work Phone: [facility] HospitalVaysvqofgb60-54-6418 10:43-0400Body glkuxb479.3 cmBigg Bowens DO Work Phone: [facility] HospitalGhbfdzymhq46-89-3467 10:43-0400Body mass index (BMI) [Ratio]24.22 kg/i2RbbfbBigg Bowens DO Work Phone: [facility] HospitalRydtvdgkhz54-08-1470 10:43-0400Body bvertn86.39 kgBigg Bowens DO Work Phone: noCarondelet HealthEcequepqlj80-92-6011 11:02-0400Body hujoqk560.3 cmRamseyri Jayline [employer] TENDER Work Phone: [facility] HospitalIehyyrkzau16-78-0460 11:02-0400Body mass index (BMI) [Ratio]24.25 kg/m1Fwdza Rine [employer] T[employer]ER Work Phone: [phone] HospitalVcuozbigcj39-33-6634 11:02-0400Body temperature 97.59 [degF]Laya Rine [employer] T[employer]ER Work Phone: [facility] HospitalYyfdbpufeo91-41-2332 11:02-0400Body .48 kgGerri Rine [employer] D[employer]ER TENDER Work Phone: [phone] HospitalMwlfslfzdz96-45-3335 11:02-0400Diastolic blood xunatpvs25 mm[Hg]Laya Rine V[employer] D[employer] TENDER Work Phone: [facility] HospitalKxprnfghnh08-44-2379 11:02-0400Heart rate76 /min Laya Rine [employer] T[employer]ER Work Phone: [phone] [place], [place] [address]Avtoowuskm16-26-7788 11:02-0400Respiratory rate18 /minGerri Rine [employer] TENDER Work Phone: [facility] HospitalXyofjtnthv01-13-6280 11:02-2840JkL7% (BldA) [Mass fraction]97 %Laya Rine [employer] T[employer]ER Work Phone: [facility] HospitalSxrbmpnknh64-71-4265 11:02-0400Systolic blood pvqvwupf596 mm[Hg]Laya Rine [employer] T[employer]ER Work Phone: [facility] HospitalHtildgixww96-46-9231 14:53-0500Body uqoblk194.3 cmBigg Bowens DO Work Phone: noCarondelet HealthXllxapahqi84-82-5719 14:53-0500Body mass index (BMI) [Ratio]24.51 kg/l5NlmmlBigg Bowens DO Work Phone: noCarondelet HealthDvqzoxplkr86-44-6086 14:53-0500Body temperature 97.5 [degF]Bigg Bowens DO Work Phone: [facility] HospitalRrinhnsvqx15-52-7943 14:53-0500Body .3 kg Bigg Bowens DO Work Phone: noCarondelet HealthLgpabuvbzw45-00-2922 11:11-0500Body mxqalj114.3 cmLaya Plata [employer]UM D[employer] TENDER Work Phone: [facility] HospitalGwizpxorbx59-66-4089 11:11-0500Body mass index (BMI) [Ratio]24.6 kg/b7Tujhb Rine [employer] T[employer]ER Work Phone: [phone] HospitalZdjcejynor33-31-5160 11:11-0500Body temperature 98.8 [degF]Laya Rine [employer] TENDER Work Phone: [facility] HospitalWtwxkyxpms32-57-3016 11:11-0500Body osqdjs83.57 kgGerri Rine [employer]UM DRIER TENDER Work Phone: [facility] HospitalMkliqcwdfu19-59-1696 11:11-0500Diastolic blood pgbeomfb73 mm[Hg]Laya Rine [employer] TENDER Work Phone: [facility] HospitalLnzrdunzkt59-40-2385 11:11-0500Heart rate65 /min Laya Rine [employer] T[employer]ER Work Phone: [facility] HospitalQzhbtgybxr25-94-1876 11:11-0500Respiratory rate18 /minGerri Rine V[employer]UM DRIER TENDER Work Phone: [facility] HospitalYnwgjkywsj91-67-0097 11:11-2230WeT5% (BldA) [Mass fraction]94 %Laya Rine [employer] D[employer] TENDER Work Phone: [facility] HospitalEslwvugtrs55-89-7007 11:11-0500Systolic blood mm[Hg]Laya Rine [employer] D[employer]ER TENDER Work Phone: [facility] HospitalKubeijmath79-70-8784 10:19-0500Body cirlwq175.3 cmDavid Pocos DO Work Phone: [facility] HospitalNrzdrwafha13-27-4956 10:19-0500Body mass index (BMI) [Ratio]24.96 kg/m7Gsdkv Pocos DO Work Phone: [facility] HospitalUfalxfonvw97-10-4919 10:19-0500Body iizpeu96.66 kgDavid Pocos DO Work Phone: noCarondelet HealthRodczujcbj36-78-8407 10:30-0400Body vtlygg536.3 cmGerri Rine [employer] TENDER Work Phone: [facility] HospitalKkzdlxqngk66-54-8605 10:30-0400Body mass index (BMI) [Ratio]25.08 kg/o9Usgqj Rine [employer] TENDER Work Phone: [facility] HospitalKvitfjwqbh13-69-5816 10:30-0400Body temperature 97.81 [degF]Laya Rine V[employer]UUM D[employer]ER TENDER Work Phone: [facility] HospitalGticatvcah54-33-6092 10:30-0400Body zzqxqi68.02 kgGerri Rine [employer]UM DRIER TENDER Work Phone: [facility] HospitalImypjubjtj13-34-3761 10:30-0400Diastolic blood mm[Hg]Laya Rine [employer] D[employer] TENDER Work Phone: [facility] HospitalOkmmgytwbi69-21-8627 10:30-0400Heart rate70 /min Laya Rine V[employer] D[employer]ER TENDER Work Phone: [address] [place], [place] [address]Vgtdxlhvzp98-65-1299 10:30-0400Respiratory rate18 /minGeryvan Plata V[employer]UUM DRIER TENDER Work Phone: noCarondelet HealthEyynezufed67-59-8196 10:30-4584FpT3% (BldA) [Mass fraction]96 %Laya Plata V[employer] DRIER TENDER Work Phone: noCarondelet HealthLegaegwpdj76-27-5509 10:30-0400Systolic blood mm[Hg]Laya Plata [employer] D[employer]ER TENDER Work Phone: [facility] HospitalHyqtvkelfo35-50-7114 15:35-0500BP Qveaqowym92 mm[Hg][place], [place]02[place] 15:35-0500BP Ouibfivf247 mm[Hg] [place], [place]02[place] 15:35-0500Pulse (Heart Rate)60 /min [place], [place]02-04[place] 15:35-0500Pulse Mqmhuiqh51 %[place], [place]02-04[place]2021 15:35-0500Respiratory Rate18 /minDaviWaukes[place], [place]02[place] 15:05-0500Body Keemtfcwsmy89.49 [degF][facility], EI42-19-8793 10:31-0500BMI (Body Mass Index)26.09 kg/f2KvxmpBelle[place], [place]02[place] 10:31-0500Body nywvsw37.7 kgDavid [place], [place]02-[place] 10:31-8472Tcibgy329.5 cmDad [place] Encounters Encounter DateEncounter TypeCare ProviderFacilityStart: 01-28-2025 End: 60-25-4529Ktlvfqtvy encounterGerri Jermain Plata V[employer] DRIER TENDER Work Phone: no[facility] MedicineStart: 01-26-2025 End: 55-75-5005RzaxewMbisfto Vargas MANOMS [facility] MedicineComment on above:Type 2 diabetes mellitus without complication, without long-term current use of insulin (HCC)Start: 01-22-2025 End: 47-27-3873jhqnqeorsrQlxngmb Vytautas Giedraitis MDFacility:PM Ayesha Start: 01-15-2025 End: 23-73-6839Aeljuhlyq encounterLaya Plata [employer] D[employer]ER TENDER Work Phone: noms [facility] MedicineComment on above:refill atenololStart: 01-05-2025 End: 22-64-9513LzidqsOtzey L Jayline V[employer] D[employer]ER TENDER Work Phone: noms [facility] MedicineComment on above:Type 2 diabetes mellitus with complication (HCC) (Primary Dx)Type 2 diabetes mellitus with complication (HCC)Start: 01-03-2025 End: 35-13-1973Twbtgf flowsheetGerri L Jayline V[employer] D[employer]ER TENDER Work Phone: noms [facility] MedicineStart: 01-03-2025 End: 47-41-0993Kjpdxi flowsheetGerri L Rine V[employer]UUM DRIER TENDER Work Phone: noms [facility] MedicineStart: 01-03-2025 End: 39-19-4482Wjxbnu outpatient visit 25 minutesGerri Jermain Mosquedae V[employer] DRIER TENDER Work Phone: noms [facility] MedicineComment on above:Chronic left shoulder pain (Primary Dx); Mixed hyperlipidemia; Type 2 diabetes mellitus with complication (HCC); Stage 3a chronic kidney disease ([facility]); Primary hypertensionStart: 01-03-2025 End: 62-29-6311uwbvcnrnsxJYVTR L RINENot AvailableStart: 12-18-2024 End: 38-05-5386Ltxswo Mariella Bowens DO Work Phone: NOMS [facility]edicsStart: 12-18-2024 End: 99-79-5605Rdsnps Mariella Bowens DO Work Phone: [facility]opaedicsStart: 12-18-2024 End: 38-21-3706Vquamdq encounter procedureBigg Bowens DO Work Phone: NOMS [facility] OrthopaedicsComment on above:Left shoulder pain, unspecified chronicityEnvironmental and seasonal allergies; Primary hypertensionStart: 12-18-2024 End: 33-05-1919wmshjwqvkoVFSBA A BROWNNot AvailableStart: 12-05-2024 End: 35-17-5516Itbrsfelv encounterLaya Plata V[employer] DRIER TENDER Work Phone: [facility] CenterComment on above:refill OmeprazoleStart: 09-19-2024 End: 84-63-1794LoslupVcefcb Feucht MANOMS TSR FMComment on above:Type 2 diabetes mellitus with complication (HCC)Start: 09-05-2024 End: 19-72-2735Rkvikx flowsheetGerri L Jayline V[employer] DRIER TENDER Work Phone: NOMS TSR FMStart: 09-05-2024 End: 13-81-6406Thqtbz flowsheetGerri L Jayline V[employer]UUM DRIER TENDER Work Phone: NOMS [facility] FMStart: 09-05-2024 End: 10-47-2986Qzhcyl outpatient visit 25 minutesGerri L Jayline V[employer]UUM DRIER TENDER Work Phone: NOMS TSR FMComment on above:Type 2 diabetes mellitus with complication (CMS/HCC) (Primary Dx); Primary hypertension (CMS/HCC); Stage 3a chronic kidney disease (HCC) (CMS/HCC); CPAP (continuous positive airway pressure) dependence; White coat syndrome with diagnosis of hypertension (CMS/HCC)Start: 09-05-2024 End: 62-45-5056qalefqtaknMOKKD L RINENot AvailableStart: 08-30-2024 End: 53-99-6643ZcpgvbWrrmni Feucht MANOMS TSR FMComment on above:Environmental and seasonal allergiesStart: 08-14-2024 End: 15-66-6261Ixfqhf Mariella Bowens DO Work Phone: NOMS ORTHOStart: 08-14-2024 End: 39-32-4117Xxknmu Mariella Bowens DO Work Phone: NOMS ORTHOStart: 08-14-2024 End: 47-84-4253Pcksmah encounter procedureBigg Bowens DO Work Phone: NOMS NB ORTHOComment on above:Left shoulder pain, unspecified chronicity (Primary Dx)Start: 08-14-2024 End: 41-96-7709mcabcrtdfwCSOAC A BROWNNot AvailableStart: 07-10-2024 End: 58-13-4579YupaktAcecoj Lacis RNNOMS TSR FMComment on above:Primary hypertension ([facility])Start: 06-05-2024 End: 12-86-9541Unuoghcgj encounterGerri L Rine V[employer] D[employer]ER TENDER Work Phone: NOMS TSR FMComment on above:medication refillStart: 05-26-2024 End: 44-90-5674Goqifwawp encounterGerri L Rine V[employer] D[employer]ER TENDER Work Phone: NOMS TSR FMStart: 05-21-2024 End: 33-17-2780CiyajqOqyda L Rine V[employer] DRIER TENDER Work Phone: NOMS TSR FMComment on above:Type 2 diabetes mellitus with other specified complication, unspecified whether cooler deliverer insulin use ([facility])Start: 05-11-2024 End: 63-05-5101Huqgywb encounter procedureBigg Bowens DO Work Phone: NOMS NB ORTHOComment on above:Left shoulder pain, unspecified chronicity (Primary Dx)Start: 05-11-2024 End: 28-52-5933gkrvaquineGFGHG A BROWNNot AvailableStart: 05-11-2024 End: 50-34-0308Coviqw Mariella Bowens DO Work Phone: [phone] ORTHOStart: 05-11-2024 End: 32-66-6670Ydakam flowsCata Bowens DO Work Phone: [phone] ORTHOStart: 05-08-2024 End: 53-05-2781Fibcin flowsheetGerri L Rine V[employer] D[employer]ER TENDER Work Phone: NOMS TSR FMStart: 05-08-2024 End: 74-68-1623Upovop flowsheetGerri L Rine V[employer]UUM DRIER TENDER Work Phone: NOMS TSR FMStart: 05-08-2024 End: 04-79-1404Lluyshd encounter procedureLaya Plata NP Work Phone: noms TSR FMComment on above:Medicare annual wellness visit, initial (Primary Dx); Stage 3a chronic kidney disease (HCC) ([facility]/HCC); Primary hypertension (CMS/HCC); Mixed hyperlipidemia (CMS/HCC); Type 2 diabetes mellitus with complication ([facility]/HCC); Obstructive sleep apnea syndrome; Chronic GERD; Lumbar spondylosis; Degeneration of intervertebral disc of lumbar region, unspecified whether pain present; Arthritis, multiple joint involvement; Environmental and seasonal allergies; Vitamin D deficiency; CPAP (continuous positive airway pressure) dependenceStart: 05-08-2024 End: 26-25-3466ezuxjfkncmTYMOI L RINENot AvailableStart: 05-01-2024 End: 59-90-0712Lirbbi OnlyLaya Plata NP Work Phone: noms TSR FMComment on above:Elevated glucose (Primary Dx); Essential hypertension ([facility]); Elevated cholesterol ([facility]); Type 2 diabetes mellitus with complication ([facility]/HCC); Mixed hyperlipidemia ([facility]/HCC)Start: 04-26-2024 End: 56-03-8432QckpftWigah L Rine NP Work Phone: NONF TSR FMComment on above:Type 2 diabetes mellitus with other specified complication, unspecified whether senior care insulin use ([facility])Start: 04-24-2024 End: 65-85-9298Vzyfmha encounter procedureDavid A Pocos DO Work Phone: NOMS NB ORTHOComment on above:Left shoulder pain, unspecified chronicity (Primary Dx); Arthritis of left shoulder region; Superior glenoid labrum lesion of left shoulder, initial encounter; Impingement syndrome of left shoulderStart: 04-24-2024 End: 49-58-0654cmvyqzgenmIDFAV A POCOSNot AvailableStart: 04-24-2024 End: 50-57-1442qybxujqamaLSBIS A POCOSNot AvailableStart: 04-14-2024 End: 08-70-7552Ovwoxh Meenakshi TURPIN Work Phone: NOGW TSR DERMStart: 04-14-2024 End: 18-35-9879Ddenkn flowsheetAlison Jermain Salgado PA Work Phone: NOMS TSR DERMStart: 04-14-2024 End: 86-68-2510Daugijifi encounterGerri L Rine V[employer]ER TENDER Work Phone: NOKA TSR FMComment on above:FYI on left shoulderStart: 04-14-2024 End: 63-59-2325Lbgctc outpatient visit 15 minutesAlison Jermain Salgado PA Work Phone: NOOB TSR DERMComment on above:Melanocytic nevus of trunk (Primary Dx); History of basal cell carcinoma; Seborrheic keratosis; Actinic keratosis; Lichen simplex chronicusStart: 04-14-2024 End: 48-43-2808bqehdencgoUOQDAZ Jermain SALGADONot AvailableStart: 01-17-2024 End: 52-60-0841Fctdwm flowsheetGerri L Rine V[employer] D[employer]ER TENDER Work Phone: NOMS TSR FMStart: 01-17-2024 End: 27-29-2269Mbseyd flowsheetGerri L Rine VACUUM DRIER TENDER Work Phone: NOMS TSR FMStart: 01-17-2024 End: 91-16-1342Pgzxxg outpatient visit 25 minutesGerri L Rine V[employer]UUM DRIER TENDER Work Phone: NOMS TSR FMComment on above:Type 2 diabetes mellitus with complication (CMS/HCC) (Primary Dx); Stage 3a chronic kidney disease (HCC) (CMS/HCC); Type 2 diabetes mellitus with hyperglycemia (CMS/HCC); Mixed hyperlipidemia (CMS/HCC)Start: 01-17-2024 End: 51-63-9082qgcvgqxwcgFSGGL L RINENot AvailableStart: 01-16-2024 End: 21-86-9074PbuntuVzauu L Rine V[employer]UUM DRIER TENDER Work Phone: NOMS TSR FMComment on above:Primary hypertension (CMS/HCC)Start: 01-10-2024 End: 33-16-1021Uwmchq flowsheetAlison L Nellie PA Work Phone: NOMS TSR DERMStart: 01-10-2024 End: 78-98-9797Zknneh flowsheetAlison L Nellie PA Work Phone: NOMS TSR DERMStart: 01-10-2024 End: 14-20-1966Egkeztrbs encounterGerri L Rine V[employer] D[employer]ER TENDER Work Phone: NOMS TSR FMComment on above:refill atorvastatinStart: 01-10-2024 End: 14-19-7844Rejgswj encounter procedureAlison L Nellie PA Work Phone: NOMS TSR DERMComment on above:Actinic keratosis (Primary Dx)Start: 01-10-2024 End: 45-54-8332qmjfpsntovUUBNCL L WINANSNot AvailableStart: 12-13-2023 End: 58-24-0469Rgkonukcg encounterGerri L Rine V[employer] DRIER TENDER Work Phone: NOMS TSR FMComment on above:refillsStart: 12-09-2023 End: 48-04-8272Hjsocssix encounterGerri L Rine VACUUM DRIER TENDER Work Phone: NOMS TSR FMComment on above:Med RefillStart: 11-30-2023 End: 75-15-2946Powmlb flowsheetAlison L Nellie PA Work Phone: NOMS TSR DERMStart: 11-30-2023 End: 95-20-9114Yhkyoo flowsheetAlison L Nellie PA Work Phone: NOMS TSR DERMStart: 11-30-2023 End: 71-82-6958Pprxvd outpatient visit 10 minutesAlison L Nellie PA Work Phone: NOMS TSR DERMComment on above:Segundo angioma (Primary Dx); Actinic keratosisStart: 11-24-2023 End: 47-09-8447AynkopBxamu L Rine [employer]ER TENDER Work Phone: NOMS TSR FMComment on above:Primary hypertension (CMS/HCC)Start: 06-15-2023 End: 49-74-1785shooxdpleyMFXSYIB Ryanne [facility] CHATHAMMELIAcity hospitalerma [facility] HospitalStart: 03-01-2023 End: 84-39-9295vklmgolnbyAPRPHOS G [facility] ARROWRMcity hospitalerma [facility] HospitalStart: 04-23-2022 End: 74-48-2522gyenmqgglzBV DOCTOR MISCFacility:Q6Oecpd: 04-20-2022 End: 84-56-7704Tpmcjkd encounter statusDaniel Pop DO Work Phone: mwhZ RESPIRATORY THERAPYStart: 04-20-2022 End: 50-52-5080Cjxfaizwdt hospital visit by Mallory Pop DO Work Phone: mwhz RESPIRATORY THERAPYComment on above:Pre-op testingStart: 04-07-2022 End: 87-90-2350rkiuejshnwSK DOCTOR MISCFacility:L6Kutro: 03-19-2022 End: 00-31-8505yodhgbefrqJY ABNER S KUMARFacility:V4Useeg: 07-22-2021 End: 12-75-5717vmagqoaacaFV ABNER S KUMARFacility:G9Ihybo: 07-16-2021 End: 54-82-7740wmcxhdblgdYT OTF ESCAMILLAERFacility:A2Iiexl: 08-15-2020 End: 21-78-3493Egueswvhef hospital visit by Mallory Pop DO [facility] Phone[facility] RadiologyStart: 07-15-2020 End: 42-98-5342Lvkhtnzufa hospital visit by Yogi Russell Physical TherapyComment on above:ArrivedStart: 07-08-2020 End: 46-03-2764Ourswwplmk hospital visit by Cole Marcos Physical TherapyComment on above:ArrivedStart: 07-03-2020 End: 59-49-6187Afjgptughc hospital visit by Enoch Rosa Physical TherapyComment on above:ArrivedStart: 07-01-2020 End: 09-17-3438Aputaweaug hospital visit by Yogi Russell Physical TherapyComment on above:ArrivedStart: 06-26-2020 End: 03-83-1568Higiveerkt hospital visit by Cole Marcos Physical TherapyComment on above:ArrivedStart: 06-24-2020 End: 78-85-6956Jpijsbdoyb hospital visit by Yogi Russell Physical TherapyComment on above:ArrivedStart: 06-21-2020 End: 92-03-9864Uxxgzqnpxh hospital visit by Yogi Russell Physical TherapyComment on above:ArrivedStart: 06-19-2020 End: 07-23-4669Fixinymfqh hospital visit by Enoch Rosa Physical TherapyComment on above:ArrivedStart: 06-14-2020 End: 29-79-5214Fukkmvyuew hospital visit by Cole Marcos Physical TherapyComment on above:ArrivedStart: 06-12-2020 End: 26-77-0911Dbbtirsrxr hospital visit by Cole Marcos Physical TherapyComment on above:ArrivedStart: 06-10-2020 End: 16-09-3909Sggvqeuxpx hospital visit by Cole Marcos Physical TherapyComment on above:ArrivedStart: 06-07-2020 End: 79-35-8229Colkhhajte hospital visit by Enoch Rosa Physical TherapyComment on above:ArrivedStart: 06-05-2020 End: 93-11-4493Oagysoolrj hospital visit by Enoch Rosa Physical TherapyComment on above:ArrivedStart: 05-29-2020 End: 05-91-1521Oxxclaectm hospital visit by Enoch Rosa Physical TherapyComment on above:ArrivedStart: 05-09-2020 End: 70-61-7759Dhkvmwdtky hospital visit by Vicky Moreland Work Phone: mWHS ORComment on above:Rotator cuff syndrome of right shoulder (Primary Dx)Start: 05-09-2020 End: 19-72-1134Sehycwbfxg hospital visit by physicianAnderson Covid19 Pat Screening ScheduleMWHZ PRE ADMITComment on above:ArrivedStart: 05-02-2020 End: 35-84-5937Gzrfmehrle hospital visit by physicianAnderson ReinosoWHZ LaboratoryComment on above:Pre-op chest examStart: 04-24-2020 End: 35-81-3910Sfdmwmqfxv hospital visit by physicianAnderson Mri Scanner [facility] MRIComment on above:Impingement syndrome of right shoulder Start: 04-17-2020 End: 63-53-4396Ybbmtwezwm hospital visit by Keri Garibay Physical TherapyComment on above:ArrivedStart: 04-15-2020 End: 92-02-9636Avfupepvac hospital visit by Aida Billingsley Physical TherapyComment on above:ArrivedStart: 04-11-2020 End: 69-26-6724Trjfjssnxq hospital visit by Aida Billingsley Physical TherapyComment on above:ArrivedStart: 04-09-2020 End: 25-91-4548Ivijdnapoa hospital visit by Keri Garibay Physical TherapyComment on above:ArrivedStart: 04-03-2020 End: 39-21-8418Dnhkvrjywo hospital visit by Keri Garibay Physical TherapyComment on above:ArrivedStart: 04-01-2020 End: 19-57-6472Vxrpiehfre hospital visit by Keri Garibay Physical TherapyComment on above:ArrivedStart: 03-27-2020 End: 44-82-6140Zehoyrqkiz hospital visit by Lory Peguero Phone: MALACHI Physical TherapyComment on above:ArrivedStart: 03-26-2020 End: 01-41-8943Mxdmvclntw hospital visit by Aida Billingsley Physical TherapyComment on above:ArrivedStart: 03-21-2020 End: 69-20-0078Fymqnswjvh hospital visit by Keri Garibay Physical TherapyComment on above:ArrivedStart: 03-19-2020 End: 57-11-6347Shediozybq hospital visit by Aida Billingsley Physical TherapyComment on above:ArrivedStart: 02-23-2020 End: 26-55-9457Idspabpogz hospital visit by Tania Additional [facility] RadiologyComment on above:Arthritis of right shoulder regionStart: 12-20-2018 End: 52-27-1868Dzfbqydsov hospital visit by [facility] Rad[facility] Procedures DateProcedureProcedure DetailPerforming ClinicianStart: 12-18-2024 End: 84-15-0185Tritibihctbkni aspir&/inj major jt/bursa w/usJason A Brown DO Work Phone: Start: 05-11-2024 End: 57-05-2982Vwpekfgedcleog aspir&/inj major jt/bursa w/usJason A Brown DO Work Phone: Start: 80-70-0031Xdxab shoulder complete minimum 2 viewsJason A Brown DO Work Phone: Start: 84-34-8388Qzmql shoulder complete minimum 2 viewsDavid A Pocos DO Work Phone: Start: 71-09-4732FGQWWDSIIWN SKIN LESIONAlison L Nellie PA Work Phone: Start: 97-40-3652GIRCBEXNZXA SKIN LESIONAlison L Nellie PA Work Phone: Start: 47-63-6903OPXQEGQIODS SKIN LESIONAlison L Nellie PA Work Phone: Start: 41-36-4664Oig routine ecg w/least 12 lds w/i&r Brian Mckeon MD Work Phone: start: 46-31-7639Ryar bld gluc mntr dev cleared fda spec home useDavid John Pocos Work Phone: Start: 09-16-9340Jxtz bld gluc mntr dev cleared fda spec home useDavid John Pocos Work Phone: Start: 69-32-0096AFRCK-19Luis Cheryl Doll Work Phone: Start: 26-70-6152Youlahedjl exam chest 2 viewsDavid John Moreland Work Phone: Start: 79-11-2505Zsfva metabolic panel calcium total Pretty John Moreland Work Phone: Start: 28-62-8205Wrket count complete auto&auto difrntl wbcDavid John Moreland Work Phone: Start: 11-16-3620Rzk any jt upper extremity w/o contrast matrlDavid John Moreland Work Phone: Start: 15-28-0471Bzjan shoulder complete minimum 2 viewsMichael G Roseann Work Phone: Plan of Treatment DateCare ActivityDetailAuthorStart: 80-24-7329Enivtfeg screeningDiabetes: Retinopathy ScreeningNOMO HealthcareStart: 65-23-5317Svgmakqgq vaccination Influenza Vaccine (#1)NOMS HealthcareComment on above:Postponed from 12/04/2024 (Patient Refused)Start: 02-03-2026Medicare Annual Wellness (AWV)Medicare Annual Wellness (AWV)NOMS HealthcareStart: 04-20-2025 End: 39-05-1619Sqhpdaa encounter procedureNOMS TSR DERMStart: 03-27-2025 Hemoglobin A1c measurementDiabetes: Hemoglobin G2OQEIZ HealthcareStart: 02-26-2025 End: 04-78-7473Lfghwnq encounter tejtflhyz11/24/2025 10:30 AM EST Office Visit [facility] [address] [place] [address] Laya Plata NP [address] [place] [address] [facility] MedicineStart: 66-96-3471Afevo screening for proteinDiabetes: Urine Protein ScreeningNOMO HealthcareStart: 01-03-2025 End: 77-53-9703Ukufavq aminotransferase [Enzymatic activity/volume] in Serum or PlasmaALT Lab Routine Mixed hyperlipidemia Expected: 01/03/2025 (Approximate), Expires: 01/03/2026[facility] Work Phone: Comment on above:Expected: 01/03/2025 (Approximate), Expires: 01/03/2026Start: 01-03-2025 End: 92-32-3315Lcekqcztl aminotransferase [Enzymatic activity/volume] in Serum or PlasmaAST Lab Routine Mixed hyperlipidemia Expected: 01/03/2025 (Approximate), Expires: 01/03/2026NOMO HealthcareComment on above:Expected: 01/03/2025 (Approximate), Expires: 01/03/2026Start: 01-03-2025 End: 77-49-5078Qhhijzbskz A1c/Hemoglobin.total in BloodHemoglobin A1c Lab Routine Type 2 diabetes mellitus with complication (HCC) Expected: 01/03/2025 (Approximate), Expires: 01/03/2026NOMO HealthcareComment on above:Expected: 01/03/2025 (Approximate), Expires: 01/03/2026Start: 01-03-2025 End: 80-98-8683Dumum 1996 panel - Serum or PlasmaLipid panel Lab Routine Mixed hyperlipidemia Expected: 01/03/2025 (Approximate), Expires: 01/03/2026NOMO HealthcareComment on above:Expected: 01/03/2025 (Approximate), Expires: 01/03/2026Start: 01-03-2025 End: 84-07-7191Ttyefjo encounter procedureNOMS TSR FMComment on above:Arrived Start: 12-18-2024 End: 98-35-6798Pjrsbdf encounter procedureNOMS NB ORTHOComment on above:Arrived Start: 12-06-2024 End: 84-20-4265Aynzxzywxt A1c/Hemoglobin.total in BloodHemoglobin A1c Lab Today Type 2 diabetes mellitus with complication (CMS/HCC) Expected: 12/06/2024 ( Approximate), Expires: 09/05/2025[facility] Work Phone: Comment on above:Expected: 12/06/2024 (Approximate), Expires: 09/05/2025Start: 49-64-4823Ahhmhvowy vaccinationSTEWARD HEALTH CARE SYSTEM HealthcareStart: 66-56-0035Jlfxownzpc A1c measurementDiabetes: Hemoglobin Z0WQBLDPerry County Memorial Hospital Start: 03-17-2113Emvjpszyt vaccinationInfluenza Vaccine (#1)[facility] Comment on above:Postponed from 12/05/2023 (Patient Refused)Start: 09-05-2024 End: 48-72-4950Igsuyxd encounter procedureNOMO TSR FMComment on above:Arrived Start: 08-15-2024 End: 02-70-5769Ouzrnct encounter xaksrzazh50/13/2025 10:30 AM EDT Office Visit [facility] [address] [place] [address] Bigg Bowens DO [address] [place] [address] [facility] ORTHOStart: 08-14-2024 End: 71-11-5654Idmhyov encounter procedureNOMO NB ORTHOComment on above:Arrived Start: 08-07-2024 End: 38-63-6425Immecnqzcn A1c/Hemoglobin.total in BloodHemoglobin A1c Lab Today Type 2 diabetes mellitus with complication ([facility]CC) Expected: 08/07/2024 ( Approximate), Expires: 05/08/2025[facility] Work Phone: Comment on above:Expected: 08/07/2024 (Approximate), Expires: 05/08/2025Start: 90-57-6804Bjrcvzcjwj A1c measurementDiabetes: Hemoglobin V2QLGNOPerry County Memorial HospitalStart: 05-11-2024 End: 63-94-7560Klrjpza encounter procedureNOMO NB ORTHOComment on above:Arrived Start: 05-08-2024 End: 69-13-7872Ghkyyyf encounter procedureNOMO TSR FMComment on above:Medicare annual wellness visit, [...] (continuous positive airway pressure) dependenceStart: 05-01-2024 End: 49-06-1384Sfwparpltgxyj metabolic 2000 panel - Serum or PlasmaComprehensive metabolic panel Lab Routine Essential hypertension ([facility]) Expected: 05/01/2024, Expires: 05/01/2025NOMS HealthcareComment on above:Expected: 05/01/2024, Expires: 05/01/2025Start: 05-01-2024 End: 18-75-9846Uwuxquenvd a1c with eagHemoglobin a1c with eag Lab Routine Type 2 diabetes mellitus with complication ([facility]) Expected: 05/01/2024 (Approximate), Expires: 05/01/2025[facility] Work Phone: Comment on above:Expected: 05/01/2024 (Approximate), Expires: 05/01/2025Start: 05-01-2024 End: 43-42-4230Ryhsx 1996 panel - Serum or PlasmaLipid panel Lab Routine Mixed hyperlipidemia ([facility]) Expected: 05/01/2024 (Approximate), Expires:05/01/2025 NOM[facility] HealthcareComment on above:Expected: 05/01/2024 (Approximate), Expires: 05/01/2025Start: 04-24-2024 End: 66-19-0804Kxbsvwl encounter /20/2025 10:30 AM EST Office Visit [facility] [address] [place] [address] Pretty Moreland DO [address] [place] [address] [facility] ORTHOStart: 04-14-2024 End: 57-32-3228Wmkrucc encounter procedureNOMS TSR DERMComment on above:Arrived Start: 85-48-2119Ivngwytcrl A1c measurementDiabetes: Hemoglobin A4JTHTW HealthcareStart: 00-51-1903Xkelqbjwl vaccinationInfluenza Vaccine (#1)[facility] HealthcareComment on above:Postponed from 12/05/2023 (Patient Refused)Start: 01-17-2024 End: 80-94-2318Tlnlovv encounter procedureNOMS TSR FMComment on above:Type 2 diabetes mellitus with complication (CMS/HCC) (Primary Dx); Stage 3a chronic kidney disease (HCC) (CMS/HCC)Start: 01-10-2024 End: 60-72-8619Fqjcdqx encounter procedureNOMS TSR DERMComment on above:Arrived Start: 74-19-7068Siilhgwhsb A1c measurementDiabetes: Hemoglobin I1IXUYJ HealthcareStart: 69-92-3803Oonswbpi screeningDiabetes: Retinopathy ScreeningNOMO HealthcareStart: 22-81-2729Vfrxtfauf vaccinationInfluenza Vaccine (#1)[facility] HealthcareStart: 11-30-2023 End: 58-96-7872Oxugwbj encounter procedureNOMS TSR DERMComment on above:Arrived Start: 27-26-9872Jszky screening for proteinDiabetes: Urine Protein Screening [facility] HealthcareStart: 05-04-2022 End: 28-78-8080Qksnztvax to same day surgery ampzko1305/04/2022 Surgery IP Unit BackBrian MD [address] [place] [address] COLONOSCOPYMZ EndoscopyComment on above:COLONOSCOPYStart: 05-04-2022 End: 05-80-2105Nnajh ca scrn not hi rsk indCOLORECTAL CANCER SCREENING, NOT HIGH RISK Screening for colon cancer 05/04/2022 7:30 AM ESTMZ ENDOSCOPYStart: 05-04-2022 End: 22-31-7396Rdlndlgshukiixvunklcofwrlz transoral diagnosticEGD ESOPHAGOGASTRODUODENOSCOPY Screening for colon cancer 05/04/2022 7:30 AM ESTMZ ENDOSCOPYStart: 77-83-4112Dioficufzf hospital visit by tlftvmnol76/30/2023 Hospital Encounter IP Unit BackBrian MD [address] [place] [address] [facility] EndoscopyStart: 46-73-3001Ulwsviiknm measurementCreatinine [facility]- [place], [place]Start: 98-59-3963Kwaopntkz monitoringPotassium [facility]- [place], [place]Start: 31-98-2411IAXWQ-19 Vaccine (2 - Booster for Hermila series)COVID-19 Vaccine (2 - Booster for Hermila series)HENRI GROVER [facility]Start: 07-11-2020 End: 22-03-0545YklzoqfvpehBBWC Physical TherapyStart: 07-08-2020 End: 10-60-8748Bohqtlieeis02/05/2021 Appointment Physical Therapy Nathalie Burnham Physical TherapyStart: 07-05-2020 End: 53-25-2572Djgbdtjpnxd02/02/2021 Appointment Physical Therapy Nathalie Burnham Physical TherapyStart: 07-03-2020 End: 87-31-5996Pndlvlthtrb00/31/2021 Appointment Physical Therapy Quynh Worthington PTMWHZ Physical TherapyStart: 07-01-2020 End: 97-80-6115Lgoxbebzjrq07/29/2021 Appointment Physical Therapy Alisia Sapp Physical TherapyStart: 06-28-2020 End: 78-42-0192Xfhpnlljtaw92/26/2021 Appointment Physical Therapy Quynh Worthington PTMWHZ Physical TherapyStart: 06-26-2020 End: 47-76-3924Xevdywbxxif40/24/2021 Appointment Physical Therapy Nathalie Burnham Physical TherapyStart: 06-24-2020 End: 55-02-7335Geiavhchjuy17/22/2021 Appointment Physical Therapy Alisia Sapp Physical TherapyStart: 06-24-2020 End: 67-67-1657Kkbuxvjirxi16/22/2021 Appointment Physical Therapy Nathalie Burnham Physical TherapyStart: 06-21-2020 End: 38-06-2370UiyfgwgpnunELVT Physical TherapyStart: 06-19-2020 End: 54-49-9254Lqbrwgwpzmz77/17/2021 Appointment Physical Therapy Quynh Worthington PTMGato Physical TherapyStart: 06-17-2020 End: 05-25-3778Gyhqcakmybj84/15/2021 Appointment Physical Therapy Nathalie Burnham Physical TherapyStart: 06-14-2020 End: 08-10-7237Zmbrzrbgkor69/12/2021 Appointment Physical Therapy Nathalie Burnham Physical TherapyStart: 06-12-2020 End: 33-88-7203Ramlojllauk42/10/2021 Appointment Physical Therapy Nathalie Burnham Physical TherapyStart: 06-10-2020 End: 42-28-0947Kuecczdvgke34/08/2021 Appointment Physical Therapy Nathalie Burnham Physical TherapyStart: 06-07-2020 End: 16-65-8196Rdzppqmhpoe85/05/2021 Appointment Physical Therapy Quynh Worthington PTMGato Physical TherapyStart: 06-05-2020 End: 77-12-6072Prwcpugeluf27/03/2021 Appointment Physical Therapy [facility]yn[facility] Worthington [facility] Physical TherapyStart: 18-24-9254Ipbctkeo Ewekizxeb87/01/2021 Hospital Encounter Physical Therapy Alisia Sapp Physical TherapyStart: 09-25-4849Iltidjur Ovovxelas66/26/2021 Hospital Encounter Physical Therapy Alisia SappGato Physical TherapyStart: 05-09-2020 End: 82-76-4199Jjsoafzl EncounterMOHAWK VALLEY HEALTH SYSTEMGato PRE ADMITComment on above:RIGHT SHOULDER ARTHROSCOPY PROBABLE ROTATOR CUFF REPAIR... LONG HEAD BICEPS TENODESISStart: 04-17-2020 End: 47-62-9555Nbrxsqezymq49/13/2021 Appointment Physical Therapy Rosalino Singh PTAMMALACHI Physical TherapyStart: 04-15-2020 End: 79-78-4208Jumhrchknly89/11/2021 Appointment Physical Therapy Danay Jimenez PTMGato Physical TherapyStart: 04-11-2020 End: 85-04-0384Fnbjvinzghr80/07/2021 Appointment Physical Therapy [facility]ay Jimenez [facility] Physical TherapyStart: 04-09-2020 End: 70-98-8848Etwcaekrtvg55/05/2021 Appointment Physical Therapy Rosalino Singh PTAMWHGato Physical TherapyStart: 04-03-2020 End: 75-37-3609Pbtaeixyboy16/30/2020 Appointment Physical Therapy Rosalino Singh PTAMMALACHI Physical TherapyStart: 04-01-2020 End: 24-50-1276Dpajqzvlyhe63/28/2020 Appointment Physical Therapy Rosalino Singh PTAMMALACHI Physical TherapyStart: 03-27-2020 End: 90-07-1345Rxcnmpmjbfk70/23/2020 Appointment Physical Therapy Jessica Albarado, PT [address] [place] [address] [phone] MW Physical TherapyStart: 03-26-2020 End: 59-76-0684Bqshpxdkrnc65/22/2020 Appointment Physical Therapy Danay Jimenez, PTMWHZ Physical TherapyStart: 03-21-2020 End: 48-23-8722Umjkwqsrxwp69/17/2020 Appointment Physical Therapy Rosalino Singh PTAMWHGato Physical TherapyStart: 06-29-0708Iifmu cancer screen colonoscopyColon cancer screen [facility]oscopyPark[facility]: 54-51-3832Qkxamhppn vaccinationFlu vaccine (#1)[facility]: 72-87-2308Dbjgvs Wellness Visit (AWV)Annual Wellness Visit (AWV)[facility]: 03-02-2018 Pneumococcal 65+ years Vaccine (2 of 2 - PCV13)Pneumococcal 65+ years Vaccine (2 of 2 - PCV13)[facility]: 06-12-0630Onndrjhe Vaccine (1 of 2) Shingles Vaccine (1 of 2)[facility]: 98-30-9253XXtN/Tdap/Td vaccine (1 - Tdap)DTaP/Tdap/Td vaccine (1 - Tdap)[facility]: 13-39-8192Fdjguchts C screeningHepatitis C screenBON [facility]: 47-55-5798WIVLF-19 Vaccine (1 of 2)COVID-19 Vaccine (1 of 2)[place] Start: 58-79-7296BATHW-19 Vaccine (1)COVID-19 Vaccine (1)[facility] Work Phone: start: 84-61-1291Ugdrcpbjye ScreenDepression ScreenBON [facility]art: 06-22-1955[object Object]Diabetic foot examBellona, [place]Start: 52-96-9219P9T test (Diabetic or Prediabetic)A1C test (Diabetic or Prediabetic)[place], [place]Start: 64-82-3378Rwgxtkod retinal examDiabetic retinal examBellona, KYStart: 71-80-7691Qruzz panelBON SECKettering Health Hamiltonart: 32-77-3649Qwouh screenLipid screenBellona, KYStart: 69-16-2201EMX screenAAA screenBell[place], KYStart: 1943 Creatinine measurementCreatinine monitoringBell[place], [place]Start: 1943 Creatinine monitoringCreatinine monitoringLakeHealth [facility]Point [facility] Center, [place]Start: 1943 Hepatitis C screeningHepatitis C screenBell[place], [place]Start: 1943 Potassium monitoringPotassium monitoringBellona, KYOxygen therapy [Minimum Data Set]Initiate Oxygen Therapy Protocol Respiratory Care Routine Daily until discontinued starting 05/09/2020[place], KYComment on above:Daily until discontinued starting 05/09/2020 End: 06-78-2519BESW glucosePOCT glucose Point of Care Testing Routine One Time for 1 Occurrences starting 05/09/2020 until 05/09/2020[place] Comment on above:One Time for 1 Occurrences starting 05/09/2020 until 05/09/2020 XR Shoulder - left 2 ViewsXR shoulder 2+ views left Imaging Routine Left shoulder pain, unspecified chronicity 04/24/2024 8:09 AM [employer] Work Phone: Immunizations Immunization DateImmunizationNotesCare UsiavpnvRcbttatd02-99-6134Wzevtvxyo, High-dose Seasonal, Quadrivalent, Preservative Mayo Plata NP Work Phone: [phone] [place], [place] [address]Pklxeskdax62-90-7483sgqzmwxoo virus vaccine, unspecified formulationGerri Rine [employer] Work Phone: [phone] [place], [place] [address]Exfuqxxsrb48-89-5391Ulxropotc, High-dose Seasonal, Quadrivalent, Preservative FreeGerri Rine [employer] Work Phone: [phone] [place], [place] [address]Rcilsirwbl65-33-9622jiqruymkv, injectable, quadrivalent, preservative freeGerri Rine [employer] Work Phone: [phone] [place], [place] [address]Fninqehvdc39-16-2605Ystmpkcr trivalent influenza vaccine, adjuvanted, preservative freeGerri Rine [employer] Work Phone: [phone] [place], [place] [address]Ugrukvcuga97-14-1767uhdyumwbg, high dose seasonal, preservative-freeGerri Rine [employer] Work Phone: [phone] [place], [place] [address]Njrajfgpzh09-18-3126zpaseqrcjrrn polysaccharide vaccine, 23 valentGerri Rine [employer] Work Phone: [phone] [place], [place] [address]Tudgafnexb00-83-7458uyrzuglpq, high dose seasonal, preservative-freeGerri Rine [employer] Work Phone: [phone] [place], [place] [address]Gcqoegkpbv39-94-2636fbtooqmzj, injectable, quadrivalent, contains preservativeGerri Rine [employer] Work Phone: [phone] [place], [place] [address]Trngbncyom95-66-8617rjzxcjwgs, injectable, quadrivalent, preservative freeGerri Rine [employer] Work Phone: [phone] [place], [place] [address]Tcxcxesyfo39-27-0597bfezgjkeqxoa conjugate vaccine, 13 valentGerri Rine [employer] Work Phone: [phone] [place] [address] Payers DatePayer CategoryPayerPolicy ID2017MedicareMEDICARE MEDICARE PART A AND B xxxxxxxxxx 2016-Present [phone] [place] [address] xxxxxxxxxx [id number] Health InsuranceONSL[facility] MEDIC[facility] SUPP xxxxxxxxx 2016-Present [address] [address] [place] [address]lvmctcxxw [id number] Health [id number] [id number] 1960Medicare [id number] 1.2.840.450553.1.13.239.2.7.3.378001.37714-14-7375Vyxfhqg Health [id number] 1.2.840.126884.1.13.239.2.7.3.460160.47033-44-9933Ngimpec [id number] 2.0.1.836708.3.579.2.42341-04-7463Ioxgyxv3541019 2.0.1.702964.3.579.2.60887-98-2497Auczxvh9992316 2.0.1.466786.3.579.[id number] 2..1.117131.3.57[id number] 2.0.1.823795.3.57[id number] 2.0.1.504258.3.57[id number] 2.840.1.101623.3.579.2.10446-60-6437Lelinvh04284638 2.0.1.706810.3.57[id number] 2.16.840.1.685327.3.579.[id number] 2.16.840.1.128625.3.579.2.2[id number] 2.16.840.1.999913.3.579.2.969070-97-3544Iqbemso28470599 2.840.1.018655.3.579.2.236760-66-0972Lqbqrfr9341374 2.840.1.091308.3.579.2.977375-93-3924Xsokzmk5313535 2.840.1.666666.3.579.2.701766-82-7820Ptzvrlf4455736 2.840.1.769803.3.579.2.228649-29-8234Daclxwh0832229 2.840.1.982623.3.579.2.439891-28-6795Gzliypx9984939 2.840.1.366654.3.579.[id number] 2.840.1.675133.3.579.2.219243-60-9138Vknflef0309843 2.840.1.610304.3.579.2.989496-98-3014Vrpvrjq6682419 2.840.1.606727.3.579.2.995884-12-4269Oekscrv3678060 2.840.1.695749.3.579.2.58[id number] 2.840.1.472879.3.579.2.196 Social History DateTypeDetailFacilityStart: 12-15-2016 End: 29-26-7741Qewsuni smoking status NHISFormer [place]okerBell[place], [place] Start: 02-06-1991 End: 66-44-6806Vbzvute of tobacco useCurrent smokerBell[place], [place]Start: 02-06-1991 End: 55-65-5829Jenfzkk of tobacco useCigarette [place] End: 55-62-1429Tbpgayw of tobacco usePipe SmokerOhio State University Wexner Medical Centerart: 12-15-2016 End: 87-96-6665Jdagrgb use and exposureFormer [place], [place]History of tobacco useSnuff [place], [place]History of tobacco useChews Tobacco [facility] Centerart: 12-15-2016 End: 11-24-5244Oavirdk intakeCurrent drinker of alcohol (finding)[facility]: 17-13-5682Ttv Assigned At BirthNot on [place], [place] Exposure to SARS-CoV-2 (event)Not sureOhio State University Wexner Medical Centerart: 12-15-2016 End: 35-65-0924Ovtxfmk intakeYesNOMS HealthcareStart: 05-09-2020 End: 69-04-8346Gkbtwdl intakeNOMO HealthcareStart: 63-69-0162Duibgxj SDOH Uozqobcgy8EZU [facility] [employer] Work Phone: start: 29-00-7492Lhecxhr SDOH Food Hlqda1AFP [facility] Work Phone: start: 18-43-7731Jmzalbl use and exposureSmokeless tobacco non-userNOMS HealthcareWithin the last year, have you been afraid of your partner or ex-partner?NoNOMS HealthcareDo you belong to any clubs or organizations such as denominational groups, unions, fraternal or athletic groups, or school groups?YesNOMS HealthcareAre you now , , , , never or living with a partner?MarriedNOMS HealthcareHow often to you have a drink containing alcohol?Monthly or lessNOMS HealthcareHow many standard drinks containing alcohol do you have on a typical day?1 or 2NOMS HealthcareHow often do you have 6 or more drinks on 1 occasion?NeverST[facility]ARD [facility]ALTH [facility]ARE SYSTEM HealthcareStart: 84-81-2797Ghm hard is it for you to pay for the very basics like food, housing, medical care, and heatingNot hard at allPerry County Memorial HospitalDo you feel stress - tense, restless, nervous, or anxious, or unable to sleep at night because yourmind is troubled all the time - these days [OSQ]Not at [facility](I/We) worried whether (my/our) food would run out before (I/we) got money to buy more.Never trueSTEWARD HEALTH CARE SYSTEM HealthcareStart: 18-93-4421Tmmvfjt CommentLast smoked: more than 10 years agoNELKVIEW [facility] HealthcareStart: 12-02-4346Tncbvxj CommentI drink a beer once a week, Caffeine intake: 1-2 cups per day coffeeSTEWARD HEALTH CARE SYSTEM HealthcareStart: [id number] CommentI drink a beer once a weekNOMO HealthcareHow often to you have a drink containing alcohol?2-4 times a monthNOMO HealthcareHow hard is it for you to pay for the very basics like food, housing, medical care, and heatingNot very hardPerry [facility] Hospital Medical Equipment Procedure CodeEquipment CodeEquipment Original TextEquipment IdentifierDates [employer] 4.75x19.1 Mm Tiana [id number]: 05-09-2020 [id number]: 04-20-2023 End: 32-99-0739Xdyfo [id number]: 54-99-8733Xklke [id number]: 08-15-2024 End: 85-77-4054Kefmr [id number]: Units 4 (four) times a day as needed (blood glucose monitoring with insulin)[id number]: 01-28-2025 Clinical Notes 07-16-2021 to 01-28-2025 Note Date & [id number] Telephone encounter Note* Telephone Encounter - Laya Plata NP - 01/28/2025 9:17 PM EDT New rx for lancets sent per pts e request [place] [facility] [id number] Miscellaneous Notes* Telephone Encounter - Laya Plata NP - 01/28/2025 9:17 PM EDT New rx for lancets sent per pts e request documented in this [facility]10-24-2025 Telephone encounter Note* Telephone Encounter - Deidra Burnette MA - 01/26/2025 11:03 AM EDT Pt requesting refill on his lancets. He is requesting the Rx state that he is using them 3 times daily as he was instructed to do extra testing. [facility] HospitalUnfskdeseg46-64-8318 Miscellaneous Notes* Telephone Encounter - Deidra Burnette MA - 01/26/2025 11:03 AM EDT Pt requesting refill on his lancets. He is requesting the Rx state that he is using them 3 times daily as he was instructed to do extra testing. documented in this [facility]10-13-2025 Telephone encounter Note* Telephone Encounter - Laya Plata NP - 01/15/2025 5:16 PM EDT Sent as requested [place] [id number] Miscellaneous Notes* Telephone Encounter - Laya Plata NP - 01/15/2025 5:16 PM EDT Sent as requested * Telephone Encounter - Lindsay Diaz MA - 01/15/2025 12:37 PM EDT He would like to get a refill on his atenolol 50mg to [facility] Last appt: 01/03/2025 Next appt: 02/26/2025 documented in this [facility]10-13-2025 Telephone encounter Note* Telephone Encounter - Lindsay Diaz MA - 01/15/2025 12:37 PM EDT He would like to get a refill on his atenolol 50mg to [facility] Last appt: 01/03/2025 Next appt: 02/26/2025 [facility] HospitalKxzvzfynyi69-41-4653 Telephone encounter Note* Telephone Encounter - Laya Plata NP - 01/05/2025 9:41 AM EDT Resent rx with the 5 units in the sig [facility] HospitalHtfiuthblr38-74-7387 Miscellaneous Notes* Telephone Encounter - Laya Plata NP - 01/05/2025 9:41 AM EDT Resent rx with the 5 units in the sig documented in this [facility]10-03-2025 Telephone encounter Note* Telephone Encounter - Laya Palta NP - 01/05/2025 6:50 AM EDT New insulin rx sent as insurance denied lispro rx [place] [id number] Miscellaneous Notes* Telephone Encounter - Laya Plata NP - 01/05/2025 6:50 AM EDT New insulin rx sent as insurance denied lispro rx documented in this encounterPerry County Memorial [id number] History of Present illness Narrative* Laya Plata [...] 2 weeks. A nerve block procedure at [facility] is scheduled for 01/11/2025, with arthroscopy planned for 03/19/2025 if needed. Mild pain occurs when raising his arm, tolerable for short periods. He uses a creamfor additional relief and prefers to delay further treatment until after his trip to [facility] at the end of the [...] SURGERY KNEE SURGERY Arthroscopy knee MOHS SURGERY SD REPAIR OF NASAL SEPTUM nasal septoplasty to [...] pain Comments: appt for nerv block in [facility] , sent by dr [...] before meals Stage 3a chronic kidney disease ([facility]) Comments: cr 1.53, gfr 46 on 05-07-24 [...] mar after labs . documented in this encounterPerry County Memorial HospitalRvrxemgwgg53-83-5873 Instructions* Patient Instructions* Laya Plata NP - [...] how well this work documented in this [facility]09-15-2025 Telephone encounter Note* Telephone Encounter - Oneida Noel MA - 12/18/2024 2:24 PM EDT PT requesting refill on lisinopril and fluticasone, please send to [facility]. [facility] HospitalFfiionmwtw22-88-4491 Miscellaneous Notes* Telephone Encounter - Oneida Noel MA - 12/18/2024 2:24 PM EDT PT requesting refill on lisinopril and fluticasone, please send to [facility]. documented in this [facility]09-15-2025 History of Present illness Narrative* ASAEL [...] He has previously sought pain management at [place], where he received nerve blocks for his lumbar spine. He hasan upcoming appointment with his physician in a few weeks. His inquires about the possibility of surgery to address the shoulder. He expresses interest in receiving another injection today as heplans to participate in a [employer] trip to [facility] at the end of January [...] SURGERY KNEE SURGERY Arthroscopy knee MOHS SURGERY SD REPAIR OF NASAL SEPTUM nasal septoplasty to [...] Positive Cantrell, Neer impingement, positive Whipple, positive Peach's tests are observed. Right shoulder: The skin [...] and he will discuss this with his facilities painter during his upcoming appointment. Another cortisone [...] note was created using voice recognition through [employer] artificial [employer]. documented in this encounterPerry County Memorial HospitalQzowfbhvdd97-00-3796 Telephone encounter Note* Telephone Encounter - Laya Plata NP - 12/05/2024 11:30 AM EDT Sent as requested. [facility] HospitalDbmamqfbjw94-60-8637 Miscellaneous Notes* Telephone Encounter - Laya Plata NP - 12/05/2024 11:30 AM EDT Sent as requested. * Telephone Encounter - Lindsay Diaz MA - 12/05/2024 10:51 AM EDT Refill on Omep[facility]ole to [facility] Last appt: 09/05/2024 Next appt: 01/03/2025 documented in this encounterPerry County Memorial HospitalGbefggjxrg13-86-6173 Telephone encounter Note* Telephone Encounter - Lindsay Diaz MA - 12/05/2024 10:51 AM EDT Refill on Omeprazole to [facility] Last appt: 09/05/2024 Next appt: 01/03/2025 [facility] HospitalPadnqqiwxa46-40-2899 Telephone encounter Note* Telephone Encounter - Oneida Noel MA - 09/19/2024 10:17 AM EDT Requesting refill on januvia, please send to [facility]. [facility] HospitalUgeqfroxve28-34-6570 Miscellaneous Notes* Telephone Encounter - Oneida Noel MA - 09/19/2024 10:17 AM EDT Requesting refill on januvia, please send to [facility]. documented in this encounterPerry County Memorial HospitalJibrukiwjr68-36-8430 History of Present illness Narrative* Laya Plata [...] REPAIR COLONOSCOPY 2010 KNEE SURGERY Arthroscopy knee SD REPAIR OF NASAL SEPTUM nasal septoplasty to [...] Physical Exam Constitutional: Appearance: Normal appearance. Comments: [place] for age, baseline self HENT: Head: Normocephalic [...] mo recheck. aic prior. documented in this [facility]06-03-2025 Instructions* Patient Instructions* Laya Plata NP - 09/05/2024 11:00 AM EDT Pure protein snack at bedtime Push water harder, this will help the cramps and the sugar!! Stay on your feet after meals Water after each meal Average blood sugar in 3 mo documented in this [facility]05-28-2025 Telephone encounter Note* Telephone Encounter - Oneida Noel MA - 08/30/2024 9:04 AM EDT PT requesting refill on loratadine, please send to [facility]. [facility] HospitalVuigwaojiy98-96-6069 Miscellaneous Notes* Telephone Encounter - Oneida Noel MA - 08/30/2024 9:04 AM EDT PT requesting refill on loratadine, please send to [facility]. documented in this encounterPerry County Memorial HospitalMqkofutffm56-93-5157 History of Present illness Narrative* Bigg Bowens [...] REPAIR COLONOSCOPY 2010 KNEE SURGERY Arthroscopy knee SD REPAIR OF NASAL SEPTUM nasal septoplasty to [...] Positive Cantrell, Neer impingement, positive Whipple, positive Peach's tests are observed. Right shoulder: The skin [...] note was created using voice recognition through [employer] artificial [employer]. documented in this [facility]04-07-2025 Telephone encounter Note* Telephone Encounter - Josefina Uriarte RN - 07/10/2024 12:33 PM EDT Med refill request. Med loaded [facility] HospitalBcbwzokdkp81-16-1423 Miscellaneous Notes* Telephone Encounter - Josefina Uriarte RN - 07/10/2024 12:33 PM EDT Med refill request. Med loaded documented in this [facility]03-03-2025 Telephone encounter Note* Telephone Encounter - Laya Plata NP - 06/05/2024 11:40 AM EST Sent as requested [facility] HospitalYtnauvdjgc15-45-0683 Miscellaneous Notes* Telephone Encounter - Laya Plata NP - 06/05/2024 11:40 AM EST Sent as requested * Telephone Encounter - Lindsay Diaz MA - 06/05/2024 10:36 AM EST He needs a refill on his Famotidine and Lisinopril [facility] to [facility] documented in this encounterPerry County Memorial HospitalGwewemhkld28-54-3420 Telephone encounter Note* Telephone Encounter - Lindsay Diaz MA - 06/05/2024 10:36 AM EST He needs a refill on his Famotidine and Lisinopril [facility] HospitalLdmtimmqny78-05-3087 Telephone encounter Note* Telephone Encounter - Laya Palta NP - 05/26/2024 7:54 AM EST Insurance letter to change insuline to deglutide.new rx sent. This was already sent [facility] HospitalPrnkfofcrq22-22-1004 Miscellaneous Notes* Telephone Encounter - Laya Plata NP - 05/26/2024 7:54 AM EST Insurance letter to change insuline to deglutide.new rx sent. This was already sent documented in this encounterPerry County Memorial HospitalTzhhgprhei34-36-0854 Telephone encounter Note* Telephone Encounter - Laya Plata NP - 05/21/2024 3:35 PM EST [facility] supply per pt request [facility] HospitalLecnnvjvfc78-37-3765 Miscellaneous Notes* Telephone Encounter - Laya Plata NP - 05/21/2024 3:35 PM EST [facility] for longer supply per pt request documented in this encounterPerry County Memorial HospitalXngbtxbjox43-93-7420 History of Present illness Narrative* ASAEL Thao [...] Present Illness The patient is an 78-year-old hhqny-rhpk-wipfskkt gentleman seen as a new patient to [...] REPAIR COLONOSCOPY 2011 KNEE SURGERY Arthroscopy knee SD REPAIR OF NASAL SEPTUM nasal septoplasty to [...] Positive Cantrell, Neer impingement, positive Whipple, positive Peach's tests are observed. RIGHT SHOULDER The skin is warm, dry, and intact. There is no swelling, atrophy, or deformity. The patient can raise the arm overhead. Full forward elevation, abduction, internal and external rotation. No weakness with internal and external rotation, resisted supination, or forward flexion. Negative Peach's. Negative Neer/Cantrell impingement. Ortho Exam Results Imaging [...] the left shoulder performed 03/31/2024 at the [facility] report and images are reviewed. Glenohumeral cartilage [...] & Plan The patient is an 78-year-old zpyjt-shbv-ebanqcfc male with SLAP tear, rotator cuff tendinosis, [...] note was created using voice recognition through [employer]oo.[employer]. documented in this encounterPerry County Memorial HospitalApbzjukvgp03-62-3554 History of Present illness Narrative* Laya Plata [...] left shoulder, seen by pain management in [place], they ordered mri of shoulder, saw dr moreland, her referred him to dr bowens, has appt this Skin: Negative. Neurological: Negative for dizziness and headaches. Psychiatric/Behavioral: Negative. Endocrine: See hpi Allergic/Immunologic: Negative for environmental allergies. 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 documented in this encounterPerry County Memorial HospitalAqhdttylcg75-11-5708 Instructions* Patient Instructions* Laya Plata NP - [...] appt in 4 mo documented in this encounterPerry County Memorial HospitalNzvstrmtyu07-77-5179 Evaluation note* Diagnosis Medicare annual wellness visit, initial- Primary Stage 3a chronic kidney disease (HCC) ([facility]) Primary hypertension ([facility]) Unspecified essential hypertension Mixed hyperlipidemia ([facility]) Mixed hyperlipidemia Type 2 diabetes mellitus with complication ([facility]) Obstructive sleep apnea syndrome Obstructive sleep apnea (adult) (pediatric) Chronic GERD Lumbar spondylosis Lumbosacral spondylosis without myelopathy Degeneration of intervertebral disc of lumbar region, unspecified whether pain present Arthritis, multiple joint involvement Unspecified arthropathy, multiple sites Environmental and seasonal allergies Vitamin D deficiency CPAP (continuous positive airway pressure) dependence Dependence on other enabling machine documented in this encounter [facility] HospitalZfnivakylx69-49-3156 History of Present illness Narrative* Laya Plata NP - 05/01/2024 5:48 PM EST Lab orders created documented in this encounterPerry County Memorial HospitalSsxuqnavoe36-13-5971 History of Present illness Narrative* January Eldridge [...] REPAIR COLONOSCOPY 2010 KNEE SURGERY Arthroscopy knee SD REPAIR OF NASAL SEPTUM nasal septoplasty to [...] grossly intact. He does have a positive Peach's for pain, no click. No crepitance noted. [...] the left shoulder. This is from the [facility]. He does have some rotatorcuff thinning and [...] 04/25/2024 5:32 PM EST documented in this encounterPerry County Memorial HospitalCejvkwpvgj98-33-4737 Telephone encounter Note* Telephone Encounter - Laya Plata NP - 04/14/2024 11:47 AM EST noted [facility] HospitalTuwbuijsxe18-91-5567 Miscellaneous Notes* Telephone Encounter - Laya Plata NP - 04/14/2024 11:47 AM EST noted * Telephone Encounter - Lindsay Diaz MA - 04/14/2024 10:49 AM EST Patient was in for an appointment with derm and on his way out he asked me to let you know: he has an appointment with Dr. Brown on 04/24/2024 re: the left shoulder documented in this encounterPerry County Memorial HospitalWfhtammtfe95-39-4235 Telephone encounter Note* Telephone Encounter - Lindsay Diaz MA - 04/14/2024 10:49 AM EST Patient was in for an appointment with derm and on his way out he asked me to let you know: he has an appointment with Dr. Brown on 04/24/2024 re: the left shoulder [facility] HospitalHzqhbcoosm30-41-2035 History of Present illness Narrative* PAPI Johnson [...] cosmetic reasons. 4. Actinic keratosis Left [place] Erythematous scaly papule Patient was counseled regarding [...] limited to risks of scarring, darker or electrical engineering director pigmentary changes, recurrence, incomplete removal and infection. [...] tenderness Cryotherapy, skin lesion - Left [place] 5. Lichen simplex chronicus Right Dorsal Hand [...] Next Visit: 1 year documented in this encounterPerry County Memorial HospitalOlklnumurt68-55-4546 History of Present illness Narrative* Laya Plata, [...] 25 mg, Oral, Every morning [facility] [place] 32G X 4 MM misc Inject under [...] REPAIR COLONOSCOPY 2010 KNEE SURGERY Arthroscopy knee SD REPAIR OF NASAL SEPTUM nasal septoplasty to [...] visit: Type 2 diabetes mellitus with complication ([facility]) Comments: 8% to 10.6% , we gave him farxiga 10mg #28 samples, [facility] for brenzavvy (sglt2) rec some [...] recheck 3.5 mo . documented in this [facility]10-14-[facility] Instructions* Patient Instructions* Laya Plata NP - 01/17/2024 10:30 AM EDT Farxiga 10mg per day with samples for now Brenzavvy is the new medication, one daily from the [facility] pharmacy Call if any issues getting this Check aic again in 3 mo documented in this [facility]10-07-2024 Telephone encounter Note* Telephone Encounter - Laya Plata NP - 01/10/2024 11:24 AM EDT Sent as requested [facility] HospitalSrqkhirabh81-69-1397 Miscellaneous Notes* Telephone Encounter - Laya Plata NP - 01/10/2024 11:24 AM EDT Sent as requested * Telephone Encounter - Lindsay Diaz MA - 01/10/2024 10:35 AM EDT Refill Atorvastatin 40mg --med loaded [facility] documented in this [facility]10-07-2024 Telephone encounter Note* Telephone Encounter - Lindsay Diaz MA - 01/10/2024 10:35 AM EDT Refill Atorvastatin 40mg --med loaded [facility] HospitalGuqnnqqpjj62-51-7104 History of Present illness Narrative* PAPI Johnson [...] limited to risks of scarring, darker or electrical engineering director pigmentary changes, recurrence, incomplete removal and infection. [...] Next Visit: as scheduled documented in this encounterPerry County Memorial HospitalZsgphkjqjw89-89-8298 Telephone encounter Note* Telephone Encounter - Laya Plata NP - 12/13/2023 11:48 AM EDT Sent as requested [place] [id number] Miscellaneous Notes* Telephone Encounter - Laya Plata NP - 12/13/2023 11:48 AM EDT Sent as requested * Telephone Encounter - Lindsay Diaz MA - 12/13/2023 10:22 AM EDT He would like a refill on Omeprazole and Lisinopril to [facility] documented in this encounterJess[place] [id number] Telephone encounter Note* Telephone Encounter - Lindsay Diaz MA - 12/13/2023 10:22 AM EDT He would like a refill on Omeprazole and Lisinopril to [facility] [place] [id number] Telephone encounter Note* Telephone Encounter - Laya Plata NP - 12/09/2023 1:38 PM EDT Sent as requested [place] [id number] Miscellaneous Notes* Telephone Encounter - Laya Plata NP - 12/09/2023 1:38 PM EDT Sent as requested * Telephone Encounter - Oneida Noel - 12/09/2023 11:56 AM EDT PT requesting refill on fluticasone, please send to [facility] documented in this encounterJessica [place] [id number] Telephone encounter Note* Telephone Encounter - Onedia Noel - 12/09/2023 11:56 AM EDT PT requesting refill on fluticasone, please send to [facility] [id number] History of Present illness Narrative* PAPI Johnson [...] limited to risks of scarring, darker or electrical engineering director pigmentary changes, recurrence, incomplete removal and infection. [...] Visit: 6 weeks ([place]) documented in this encounterPerry County Memorial HospitalJdglbqjwoc70-65-3477 NoteCONSULTATION CONSULTATION DATE: 04/23/2022 HISTORY OF PRESENT [...] patient will contact the office as needed.[facility]iutdcnt58[facility]-6292 NoteCONSULTATION CONSULTATION DATE: 03/19/2022 HISTORY OF PRESENT [...] be followed up in the clinic thereafter.[facility]Igrnwlwc70-61-2521 NoteOPERATIVE NOTE OPERATION DATE:07/22/2021 PREOPERATIVE DIAGNOSIS: Left [...] Will be followed up in the office. [facility] Signed and Approved by: DR ABNER WASHINGTON . 07/29/2021 12:16:00[facility]04-13-2022 NotePROCEDURE: XR SHOULDER LT 2V or [...] Electronically authenticated by: OTF LIAO Date: 2021-07-16 15:31[facility]04-13-2022 NoteCONSULTATION PAIN MANAGEMENT CONSULTATION HISTORY OF [...] plan of care and all questions answered. [facility] Signed and Approved by: JESSE WOOD . 07/17/2021 16:20:00[facility] Diagnosis Pre-op testing Preoperative examination, unspecified Screening for colon cancer Special screening for malignant neoplasms, colon documented in this encounter Context Relevant Work Phone: evaluation note* Diagnosis Actinic keratosis- Primary documented in this encounter [facility] HealthcareEvaluation note* Diagnosis Mixed hyperlipidemia (CMS/HCC) Mixed hyperlipidemia documented in this encounter [facility] HealthcareEvaluation note* Diagnosis Primary hypertension (CMS/HCC) Unspecified essential hypertension Type 2 diabetes mellitus with complication (CMS/HCC)- Primary Stage 3a chronic kidney disease (HCC) (CMS/HCC) documented in this encounter [facility] HealthcareEvaluation note* Diagnosis Type 2 diabetes mellitus with complication (CMS/HCC)- Primary Stage 3a chronic kidney disease (HCC) (CMS/HCC) Type 2 diabetes mellitus with hyperglycemia (CMS/HCC) Mixed hyperlipidemia (CMS/HCC) Mixed hyperlipidemia documented in this encounter [facility]* Diagnosis Primary hypertension ([facility]) Unspecified essential hypertension documented in this encounter [facility]* Diagnosis Segundo angioma- Primary Actinic keratosis documented in this encounter [facility]* Diagnosis Environmental and seasonal allergies documented in this encounter [facility]* Diagnosis Primary hypertension ([facility]) Unspecified essential hypertension Chronic GERD documented in [...] with other specified complication, unspecified whether senior care insulin use ([facility]) documented in this encounter [facility]* Diagnosis Elevated glucose- Primary Other abnormal glucose Essential hypertension ([facility]) Unspecified essential hypertension Elevated cholesterol ([facility]) Pure hypercholesterolemia Type 2 diabetes mellitus with complication ([facility]) Mixed hyperlipidemia ([facility]) Mixed hyperlipidemia documented in this encounter [facility]* Diagnosis Left shoulder pain, unspecified chronicity- Primary documented in this encounter [facility]* Diagnosis Type 2 diabetes mellitus with other specified complication, unspecified whether senior care insulin use ([facility]) documented in this encounter [facility]* Diagnosis Chronic GERD Primary hypertension ([facility]) Unspecified essential hypertension documented in this encounter [facility]* Diagnosis Primary hypertension ([facility]) Unspecified essential hypertension documented in this encounter [facility]* Diagnosis Left shoulder pain, unspecified chronicity- Primary documented in this encounter [facility]* Diagnosis Environmental and seasonal allergies documented in this encounter [facility]* Diagnosis Type 2 diabetes mellitus with complication ([facility])- Primary Primary hypertension ([facility]) Unspecified essential hypertension Stage 3a chronic kidney disease (HCC) ([facility]) CPAP (continuous positive airway pressure) dependence Dependence [...] RecordedPatient RepresentativeExplanationAdvance Directives and Living WillPower of AttorneyNameReSanpete Valley Hospitalealthcare Agent [facility] CenterCommunicationRiley Hospital for Children Decision Maker* TypeDate RecordedPatient RepresentativeExplanationAdvance Directives and Living [id number] RecordedPatient RepresentativeExplanation Advance Directives and Living Will_DNR History of Present Illness * Danay Can, PT - 03/19/2020 8:30 AM EST [facility] Outpatient Physical Therapy Evaluation Date: 03/19/2020 Patient: Tony Starks : 1945 Referring Practitioner: Dr. Pretty Moreland Referral Date : 03/14/20 Diagnosis: R shoulder IS, AC, OA Treatment Diagnosis: R shoulder pain Onset Date: 03/14/20 PT Insurance Information: [facility] Total # of Visits [...] 45deg of IR to improve dressing ken[place]. nursery worker goals Time Frame for nursery worker goals : 15 visits(POC Exp 04/30/19) jail goal 1: Pt to score >51/80 on UEFS to improve ADL [place] nursery worker goal 2: Pt to have ER of 55deg to improve upper body dressing. jail goal 3: Pt to have 4/5 Horiz ABD strength to improve pt posture. nursery worker goal 4: Pt to have 4/5 ER strength without pain to improve ADL [place]. Patient's Goal: Patient goals : Relieve his shoulder pain so he can complete ADLs and hobbies Timed Code Treatment Minutes: 0 Minutes Total Treatment Time: 45 Time In: 35 Time Out: 919 Danay Can, PT Date: 03/19/2020 documented in this encounter* Rosalino Singh PTA - 03/21/2020 10:30 AM EST [facility] Daily Note Date: 03/21/2020 Patient Name: Tony Starks : 1945 (74 y.o.) Referring Practitioner: Dr. Pretty Moreland Referral Date : 03/14/20 Diagnosis: R shoulder IS, AC, OA Treatment Diagnosis: R shoulder pain Onset Date: 03/14/20 PT Insurance Information: [facility] Total # of Visits [...] 45deg of IR to improve dressing [place]en[place]. Funeral Director/Embalmer Goals - Time Frame for nursery worker goals : 15 visits(POC Exp 04/30/19) nursery worker goal 1: Pt to score >51/80 on UEFS to improve ADL [place] nursery worker goal 2: Pt to have ER of [...] Can, PT - 03/26/2020 10:15 AM EST [facility] Daily Note Date: 03/26/2020 Patient Name: Tony Starks : 1945 (74 y.o.) Referring Practitioner: Dr. Pretty Moreland Referral Date : 03/14/20 Diagnosis: R shoulder IS, AC, OA Treatment Diagnosis: R shoulder pain Onset Date: 03/14/20 PT Insurance Information: [facility] Total # of Visits [...] 45deg of IR to improve dressing [place]. Funeral Director/Embalmer Goals - Time Frame for nursery worker goals : 15 visits(POC Exp 04/30/19) nursery worker goal 1: Pt to score >51/80 on UEFS to improve ADL [place] jail goal 2: Pt to have ER of 55deg to improve upper body dressing. jail goal 3: Pt to have 4/5 Horiz ABD strength to improve pt posture. nursery worker goal 4: Pt to have 4/5 ER strength without pain to improve ADL [place]. Post Treatment Pain: 04/14 Time In: 1019 Time Out: 1059 Timed Code Treatment Minutes: 40 Minutes Total Treatment Time: 40 Minutes Danay Can PT Date: 03/26/2020 documented in this encounter* Jessica Albarado, PT - 03/27/2020 2:30 PM EST [facility] Daily Note Date: 03/27/2020 Patient Name: Tony Starks : 1945 (74 y.o.) Referring Practitioner: Dr. Pretty Moreland Referral Date : 03/14/20 Diagnosis: R shoulder IS, AC, OA Treatment Diagnosis: R shoulder pain Onset Date: 03/14/20 PT Insurance Information: [facility] Total # of Visits [...] 45deg of IR to improve dressing [place]. [facility] Goals - Time Frame for nursery worker goals : 15 visits(POC Exp 04/30/19) nursery worker goal 1: Pt to score >51/80 on UEFS to improve ADL [place] nursery worker goal 2: Pt to have ER of 55deg to improve upper body dressing. nursery worker goal 3: Pt to have 4/5 Horiz ABD strength to improve pt posture. nursery worker goal 4: Pt to have 4/5 ER strength without pain to improve ADL [place]. Post Treatment Pain: 2/10 Time In: 1440 Time Out : 1525 Timed Code Treatment Minutes: 40 Minutes Total Treatment Time: 40 Minutes JESSICA ALBARADO PT Date: 03/27/2020 documented in this encounter* Rosalino Singh, TREE MARKER - 04/09/2020 10:30 AM EST [facility] Daily Note Date: 04/09/2020 Patient Name: Tony Starks : 1945 (74 y.o.) Referring Practitioner: Dr. Pretty Moreland Referral Date : 03/14/20 Diagnosis: R shoulder IS, AC, OA Treatment Diagnosis: R shoulder pain Onset Date: 03/14/20 PT Insurance Information: [facility] Total # of Visits [...] IR to improve dressing [place]. - [facility] Goals - Time Frame for nursery worker goals : 15 visits(POC Exp 04/30/19) nursery worker goal 1: Pt to score >51/80 on UEFS to improve ADL [place] jail goal 2: Pt to have ER of 55deg to improve upper body dressing. - [facility] nursery worker goal 3: Pt to have 4/5 Horiz [...] Can, PT - 04/11/2020 10:30 AM EST [facility] Daily Note Date: 04/11/2020 Patient Name: Tony Starks : 1945 (74 y.o.) Referring Practitioner: Dr. Pretty Moreland Referral Date : 03/14/20 Diagnosis: R shoulder IS, AC, OA Treatment Diagnosis: R shoulder pain Onset Date: 03/14/20 PT Insurance Information: [facility] Total # of Visits [...] IR to improve dressing [place]. - [facility] Goals - Time Frame for nursery worker goals : 15 visits(POC Exp 04/30/19) jail goal 1: Pt to score >51/80 on UEFS to improve ADL [place] jail goal 2: Pt to have ER of 55deg to improve upper body dressing. - [facility] jail goal 3: Pt to have 4/5 Horiz ABD strength to improve pt posture. nursery worker goal 4: Pt to have 4/5 ER strength without pain to improve ADL [place]. Post Treatment Pain: 05/15 Time In: 1030 Time Out : 1113 Timed Code Treatment Minutes: 43 Minutes Total Treatment Time: 43 Minutes Danay Can, PT Date: 04/11/2020 documented in this encounter* Benitez Bobo - 04/15/2020 10:30 AM EST [facility] Progress Report Date: 04/15/2020 Patient: Tony Starks : 1945 Referring Practitioner: Dr. Pretty Moreland Referral Date : 03/14/20 Diagnosis: R shoulder IS, AC, OA Treatment Diagnosis: R shoulder pain Onset Date: 03/14/20 PT Insurance Information: [facility] Total # of Visits [...] IR to improve dressing [place]. - [facility] jail goals Time Frame for jail goals : 15 visits(POC Exp 04/30/19) nursery worker goal 1: Pt to score >51/80 on UEFS to improve ADL [place] nursery worker goal 2: Pt to have ER of 55deg to improve upper body dressing. - [facility] nursery worker goal 3: Pt to have 4/5 Horiz ABD strength to improve pt posture. nursery worker goal 4: Pt to have 4/5 ER strength without pain to improve ADL [place]. Benitez Bobo, SPTA/Directly Supervised By:Danay Can, PT Date: 04/15/2020 * Benitez Bobo - 04/15/2020 10:30 AM EST [facility] Daily Note Date: 04/15/2020 Patient Name: Tony Starks : 1945 (74 y.o.) Referring Practitioner: Dr. Pretty Moreland Referral Date : 03/14/20 Diagnosis: R shoulder IS, AC, OA Treatment Diagnosis: R shoulder pain Onset Date: 03/14/20 PT Insurance Information: [facility] Total # of Visits [...] IR to improve dressing [place]. 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 - [facility] nursery worker goal 3: Pt to have 4/5 Horiz ABD strength to improve pt posture. nursery worker goal 4: Pt to have 4/5 ER [...] Worthington, PT - 05/29/2020 11:00 AM EST [facility] Evaluation Date: 05/29/2020 Patient: Tony Starks : 1945 Referring Practitioner: Dr. Pretty Moreland Referral Date : 05/23/20 Diagnosis: R shoulder scope, LHB debridment, SAD, RCR Treatment Diagnosis: R shoulder pain s/p RTC sx Onset Date: 05/09/20 PT Insurance Information: [facility] Total # of Visits [...] increase PROM R shld flexion 145 degrees nursery worker goals Time Frame for nursery worker goals : 18 visits nursery worker goal 1: Pt to have improved functional activitities with UEFS score >50/80 jail goal 2: Pt to demonstrate 135deg AROM shoulder flexion to improve ability to reach into cupboards nursery worker goal 3: Pt to demonstrate 4/5 shoulder [...] Worthington, PT - 06/05/2020 10:30 AM EST [facility] Daily Note Date: 06/05/2020 Patient Name: Tony Starks : 1945 (74 y.o.) Referring Practitioner: Dr. Pretty Moreland Referral Date : 05/23/20 Diagnosis: R shoulder scope, LHB debridment, SAD, RCR Treatment Diagnosis: R shoulder pain s/p RTC sx Onset Date: 05/09/20 PT Insurance Information: [facility] Total # of Visits [...] increase PROM R shld flexion 145 degrees [facility] Goals - Time Frame for jail goals : 18 visits jail goal 1: Pt to have improved functional activitities with UEFS score >50/80 jail goal 2: Pt to demonstrate 135deg AROM shoulder flexion to improve ability to reach into cupboards nursery worker goal 3: Pt to demonstrate 4/5 shoulder horizontal abd strength to improve ADLs and posture. Post Treatment Pain: 05/15 Time In: 10:30 Time Out : 11:00 Timed Code Treatment Minutes: 30 Minutes Total Treatment Time: 30 Minutes Quynh Worthington, PT Date: 06/05/2020 documented in this encounter* Quynh Worthington, PT - 06/07/2020 11:15 AM EST [facility] Daily Note Date: 06/07/2020 Patient Name: Tony Starks : 1945 (74 y.o.) Referring Practitioner: Dr. Pretty Moreland Referral Date : 05/23/20 Diagnosis: R shoulder scope, LHB debridment, SAD, RCR Treatment Diagnosis: R shoulder pain s/p RTC sx Onset Date: 05/09/20 PT Insurance Information: [facility] Total # of Visits [...] increase PROM R shld flexion 145 degrees-Met Funeral Director/Embalmer Goals - Time Frame for jail goals : 18 visits jail goal 1: Pt to have improved functional activitities with UEFS score >50/80 jail goal 2: Pt to demonstrate 135deg AROM shoulder flexion to improve ability to reach into cupboards nursery worker goal 3: Pt to demonstrate 4/5 shoulder horizontal abd strength to improve ADLs and posture. Post Treatment Pain: 05/15 Time In: 11:15 Time Out : 11:45 Timed Code Treatment Minutes: 30 Minutes Total Treatment Time: 30 Minutes Quynh Worthington, PT Date: 06/07/2020 documented in this encounter* Nathalie Burnham - 06/10/2020 10:30 AM EST Images from the original note were not included. [facility] Daily Note Date: 06/10/2020 Patient Name: Tony Starks : 1945 (74 y.o.) Referring Practitioner: Dr. Pretty Moreland Referral Date : 05/23/20 Diagnosis: R shoulder scope, LHB debridment, SAD, RCR Treatment Diagnosis: R shoulder pain s/p RTC sx Onset Date: 05/09/20 PT Insurance Information: [facility] Total # of Visits [...] increase PROM R shld flexion 145 degrees-[facility] Goals - Time Frame for jail goals : 18 visits nursery worker goal 1: Pt to have improved functional activitities with UEFS score >50/80 nursery worker goal 2: Pt to demonstrate 135deg AROM shoulder flexion to improve ability to reach into cupboards nursery worker goal 3: Pt to demonstrate 4/5 shoulder horizontal abd strength to improve ADLs and posture. Post Treatment Pain: 05/15 Time In: 1030 Time Out : 1105 Timed Code Treatment Minutes: 35 Minutes Total Treatment Time: 35 Minutes Nathalie Burnham TREE MARKER Date: 06/10/2020 documented in this encounter* Nathalie Burnham - 06/14/2020 11:15 AM EST Images from the original note were not included. [facility] Daily Note Date: 06/14/2020 Patient Name: Tony Starks : 1945 (74 y.o.) Referring Practitioner: Dr. Pretty Moreland Referral Date : 05/23/20 Diagnosis: R shoulder scope, LHB debridment, SAD, RCR Treatment Diagnosis: R shoulder pain s/p RTC sx Onset Date: 05/09/20 PT Insurance Information: [facility] Total # of Visits [...] increase PROM R shld flexion 145 degrees-[facility] Goals - Time Frame for jail goals [...] Total Treatment Time: 40 Minutes Nathalie Burnham TREE MARKER Date: 06/14/2020 documented in this encounter* Quynh Worthington, PT - 06/19/2020 1:45 PM EDT Images from the original note were not included. [facility] Daily Note Date: 06/19/2020 Patient Name: Tony Starks : 1945 (74 y.o.) Referring Practitioner: Dr. Pretty Moreland Referral Date : 05/23/20 Diagnosis: R shoulder scope, LHB debridment, SAD, RCR Treatment Diagnosis: R shoulder pain s/p RTC sx Onset Date: 05/09/20 PT Insurance Information: [facility] Total # of Visits [...] increase PROM R shld flexion 145 degrees-[facility] Goals - Time Frame for nursery worker goals : 18 visits jail goal 1: Pt to have improved functional activitities with UEFS score >50/80 nursery worker goal 2: Pt to demonstrate 135deg AROM [...] from the original note were not included. [facility] Daily Note Date: 06/21/2020 Patient Name: Tony Starsk : 1945 (74 y.o.) Referring Practitioner: Dr. Pretty Moreland Referral Date : 05/23/20 Diagnosis: R shoulder scope, LHB debridment, SAD, RCR Treatment Diagnosis: R shoulder pain s/p RTC sx Onset Date: 05/09/20 PT Insurance Information: [facility] Total # of Visits [...] increase PROM R shld flexion 145 degrees-[facility] Goals - Time Frame for jail goals : 18 visits nursery worker goal 1: Pt to have improved functional activitities with UEFS score >50/80 nursery worker goal 2: Pt to demonstrate 135deg AROM [...] from the original note were not included. [facility] Daily Note Date: 06/24/2020 Patient Name: Tony Starks : 1945 (75 y.o.) Referring Practitioner: Dr. Pretty Moreland Referral Date : 05/23/20 Diagnosis: R shoulder scope, LHB debridment, SAD, RCR Treatment Diagnosis: R shoulder pain s/p RTC sx Onset Date: 05/09/20 PT Insurance Information: [facility] Total # of Visits [...] increase PROM R shld flexion 145 degrees-[facility] Goals - Time Frame for nursery worker goals : 18 visits jail goal 1: Pt to have improved functional activitities with UEFS score >50/80 nursery worker goal 2: Pt to demonstrate 135deg AROM shoulder flexion to improve ability to reach into cupboards-[facility] jail goal 3: Pt to demonstrate 4/5 shoulder horizontal abd strength to improve ADLs and posture. Post Treatment Pain: 1-2 Time In: 1341 Time Out : 1422 Timed Code Treatment Minutes: 43 Minutes Total Treatment Time: 43 Minutes Alisia Sapp,TREE MARKER Date: 06/24/2020 documented in this encounter* Quynh Worthington, PT - 06/26/2020 11:15 AM EDT Images from the original note were not included. [facility] Progress Report Date: 06/26/2020 Patient: Tony Starks : 1945 Referring Practitioner: Dr. Pretty Moreland Referral Date : 05/23/20 Diagnosis: R shoulder scope, LHB debridment, SAD, RCR Treatment Diagnosis: R shoulder pain s/p RTC sx Onset Date: 05/09/20 PT Insurance Information: [facility] Total # of Visits [...] 145 degrees-[facility] jail goals Time Frame for nursery worker goals : 18 visits nursery worker goal 1: Pt to have improved functional activitities with UEFS score >50/80 nursery worker goal 2: Pt to demonstrate 135deg AROM shoulder flexion to improve ability to reach into cupboards-[facility] jail goal 3: Pt to demonstrate 4/5 shoulder horizontal abd strength to improve ADLs and posture. Nathalie Burnham TREE MARKER Date: 06/26/2020 * Nathalie Burnham - 06/26/2020 11:15 AM EDT Images from the original note were not included. [facility] Daily Note Date: 06/26/2020 Patient Name: Tony Starks : 1945 (75 y.o.) Referring Practitioner: Dr. Pretty Moreland Referral Date : 05/23/20 Diagnosis: R shoulder scope, LHB debridment, SAD, RCR Treatment Diagnosis: R shoulder pain s/p RTC sx Onset Date: 05/09/20 PT Insurance Information: [facility] Total # of Visits [...] increase PROM R shld flexion 145 degrees-Met Funeral Director/Embalmer Goals - Time Frame for nursery worker goals : 18 visits jail goal 1: Pt to have improved functional activitities with UEFS score >50/80 nursery worker goal 2: Pt to demonstrate 135deg AROM shoulder flexion to improve ability to reach into cupboards-[facility] nursery worker goal 3: Pt to demonstrate 4/5 shoulder horizontal abd strength to improve ADLs and posture. Post Treatment Pain: 05/15 Time In: 1112 Time Out : 1150 Timed Code Treatment Minutes: 38 Minutes Total Treatment Time: 38 Minutes Nathalie Burnham TREE MARKER Date: 06/26/2020 documented in this encounter* Alisia Sapp - 07/01/2020 11:15 AM EDT Images from the original note were not included. [facility] Daily Note Date: 07/01/2020 Patient Name: Tony Starks : 1945 (75 y.o.) Referring Practitioner: Dr. Pretty Moreland Referral Date : 05/23/20 Diagnosis: R shoulder scope, LHB debridment, SAD, RCR Treatment Diagnosis: R shoulder pain s/p RTC sx Onset Date: 05/09/20 PT Insurance Information: [facility] Total # of Visits [...] increase PROM R shld flexion 145 degrees-[facility] Goals - Time Frame for nursery worker goals : 18 visits jail goal 1: Pt to have improved functional activitities with UEFS score >50/80 nursery worker goal 2: Pt to demonstrate 135deg AROM shoulder flexion to improve ability to reach into cupboards-Met nursery worker goal 3: Pt to demonstrate 4/5 shoulder horizontal abd strength to improve ADLs and posture. Post Treatment Pain: 0/10 Time In: 1114 Time Out : 1153 Timed Code Treatment Minutes: 39 Minutes Total Treatment Time: 39 Minutes Alisia Sapp ,TREE MARKER Date: 07/01/2020 documented in this encounter* Quynh Worthington, PT - 07/03/2020 11:15 AM EDT Images from the original note were not included. [facility] Daily Note Date: 07/03/2020 Patient Name: Tony Starks : 1945 (75 y.o.) Referring Practitioner: Dr. Pretty Moreland Referral Date : 05/23/20 Diagnosis: R shoulder scope, LHB debridment, SAD, RCR Treatment Diagnosis: R shoulder pain s/p RTC sx Onset Date: 05/09/20 PT Insurance Information: [facility] Total # of Visits [...] increase PROM R shld flexion 145 degrees-[facility] Goals - Time Frame for nursery worker goals : 18 visits nursery worker goal 1: Pt to have improved functional activitities with UEFS score >50/80 nursery worker goal 2: Pt to demonstrate 135deg AROM [...] from the original note were not included. [facility] Daily Note Date: 07/15/2020 Patient Name: Tony Starks : 1945 (75 y.o.) Referring Practitioner: Dr. Pretty Moreland Referral Date : 05/23/20 Diagnosis: R shoulder scope, LHB debridment, SAD, RCR Treatment Diagnosis: R shoulder pain s/p RTC sx Onset Date: 05/09/20 PT Insurance Information: [facility] Total # of Visits [...] increase PROM R shld flexion 145 degrees-Met Funeral Director/Embalmer Goals - Time Frame for nursery worker goals : 18 visits nursery worker goal 1: Pt to have improved functional activitities with UEFS score >50/80-[facility] nursery worker goal 2: Pt to demonstrate 135deg AROM shoulder flexion to improve ability to reach into cupboards-[facility] nursery worker goal 3: Pt to demonstrate 4/5 shoulder [...] RIGHT WO CONTRAST Pretty Moreland, DO [address] [place] [address] [facility] [address] [place] [address] SpecialtyDiagnoses / ProceduresReferred By ContactReferred To ContactCardiology Diagnoses Pre-op testing Procedures EKG 12 Lead Back, [place] [address] Referral IDStatusReasonStart DateExpiration DateVisits RequestedVisits [id number]/[id number]/ Discharge Instructions * Instructions* Amanda Gillis RN [...] meditation. You may begin using Tylenol or rfug-nwe-[id number] Ibuprofen or Motrin for pain should you [...] from the original note were not included. [facility] Discharge Summary Patient: Tony Starks : 1945 Referring Practitioner: Dr. Pretty Moreland Diagnosis: R shoulder scope, LHB debridment, SAD, RCR Date Treatment Initiated: 05/29/20 Date of Last Treatment: 07/15/20 PT Visit Information Onset Date: 05/09/20 PT Insurance Information: [facility] Total # of Visits [...] RIGHT WO CONTRAST Pretty Moreland, DO [address] [place] [address] [facility] [address] [place] [address] StatusReasonSpecialtyDiagnoses / ProceduresReferred By ContactReferred To Contact Diagnoses Unspecified rotator cuff tear or rupture of right shoulder, not specified as traumatic RIGHT SHOULDER ROTATOR CUFF TEAR....BICEP TENDONITIS Procedures SD SHLDR ARTHROSCOP,SURG,W/ROTAT CUFF REPR RIGHT SHOULDER ARTHROSCOPY PROBABLE ROTATOR CUFF REPAIR... LONG HEAD BICEPS TENODESIS Pretty Moreland, DO [address] [place] [address] [facility] [employer] ReasonCommentsFollow-upReasonOnset DateCommentsrefill nnimmfpmmfdd58/07/2024 ReasonCommentsMed RefillReasonCommentsFollow-upWants to discuss blood sugars. Noticed since off Jardiance his blood sugars have been ranging [phone] DateCommentsMed [id number] QaznIyifhtiyrttfjlk58/09/2024Reason CommentsSkin CheckReasonOnset DateCommentsFYI on left zalhrgls93/10/2025Reason CommentsMedicare Annual Wellness Visit SubsequentReasonCommentsPainReasonOnset DateCommentsmedication xfjcpk7506/05/2024ReasonOnset DateCommentsMed Refill 07/10/2024ReasonCommentsPainReasonOnset DateCommentsMed Ghtqxd4008/30/2024Reason Comments4 months agoReasonOnset DateCommentsMed Kmzkff9409/19/2024ReasonOnset Date Commentsrefill Kbmrmcnrsb45/02/2025ReasonOnset DateCommentsMed Zujanh8412/18/2024 ReasonOnset DateCommentsrefill uharuzex93/13/2025ReasonOnset DateCommentsMed Kvwsur0701/26/2025 Ordered Prescriptions (unrec ognized section and content) [...] DO [address] [place], [place] [id number] PCP - GeneralFamily Medicine11/24/16Team MemberRelationshipSpecialtyStart End Daniel Pop DO [address] [place] [id number] PCP - GeneralFamily Medicine10/14/22 Laya Plata, VACUUM DRIER TENDER [address] [place] [address] PCP - ACO Reach01/04/24 Laya Plata, VACUUM DRIER TENDER [address] [place], [place] [id number] Nurse PractitionerFamsly Medicine10/14/22Team MemberRelationshipSpecialtyStart End Daniel Pop DO [address] [place], [place] [id number] PCP - GeneralFamily Medicine10/14/22 Laya Plata, VACUUM DRIER TENDER [address] [place] [address] PCP - ACO Reach01/04/24 Laya Plata, VACUUM DRIER TENDER [address] [place] [address] Nurse PractitionerFamily Medicine10/14/22Team MemberRelationshipSpecialtyStart DateEnd Daniel Pop, [address] [place] [address] PCP - GeneralFamily Medicine10/14/22 Laya Plata, VACUUM DRIER TENDER [address] [place] [address] PCP - ACO Reach01/04/24 Laya Plata, VACUUM DRIER TENDER [address] [place] [address] Nurse PractitionerFamily Medicine10/14/22Team MemberRelationshipSpecialtyStart DateEnd Date Daniel Pop, [address] [place] [address] PCP - GeneralFamily Medicine10/14/22 Laya Plata, VACUUM DRIER TENDER [address] [place] [address] PCP - ACO Reach01/04/24 Laya Plata, VACUUM DRIER TENDER [address] [place] [address] Nurse PractitionerFamily Medicine10/14/22Team MemberRelationshipSpecialtyStart DateEnd Date Daniel Pop, [address] [place] [address] PCP - GeneralFamily Medicine10/14/22 Laya Plata, VACUUM DRIER TENDER [address] [place] [address] PCP - ACO Reach01/04/24 Laya Plata, VACUUM DRIER TENDER [address] [place] [address] Nurse PractitionerFamily Medicine10/14/22Team MemberRelationshipSpecialtyStart DateEnd Date Daniel Pop, DO [address] [place] [address] PCP - GeneralFamily Medicine10/14/22 Daniel Pop, DO [address] [place] [address] PCP - ACO Reach06/04/23 Laya Plata, VACUUM DRIER TENDER [address] [place] [address] Nurse PractitionerMercyone Waterloo Medical Centerly Medicine10/14/22Team MemberRelationshipSpecialtyStart DateEnd Date Daniel Pop, DO [address] [place] [address] PCP - GeneralFamily Medicine10/14/22 Daniel Pop, [address] [place] [address] PCP - ACO Reach06/04/23 Laya Plata, VACUUM DRIER TENDER [address] [place] [address] Nurse PractitionerFamsly Medicine10/14/22Team MemberRelationshipSpecialtyStart DateEnd Date Daniel Pop, [address] [place] [address] PCP - GeneralFamily Medicine10/14/22 Daniel Pop DO [address] [place] [address] PCP - ACO Reach06/04/23 Laya Plata, VACUUM DRIER TENDER [address] [address] [place] [address] Nurse PractitionerH[facility] For Behavioral Medicine Medicine10/14/22Team MemberRelationshipSpecialtyStart DateEnd Date Daniel Pop, [address] [place] [address] PCP - GeneralFamily Medicine10/14/22 Daniel Pop, [address] [place] [address] PCP - ACO Reach06/04/23 Laya Plata, VACUUM DRIER TENDER [address] [place] [address] Nurse Pract[facility]10/14/22Team MemberRelationshipSpecialtyStart DateEnd Date Daniel Pop, [address] [place] [address] PCP - GeneralFamily Medicine10/14/22 Daniel Pop DO [address] [place] [address] PCP - ACO Reach06/04/23 Laya Plata, VACUUM DRIER TENDER [address] [place] [address] Nurse PractitionerFamily Medicine10/14/22Team MemberRelationshipSpecialtyStart DateEnd Date Daniel Pop, [address] [place] [address] PCP - GeneralFamily Medicine10/14/22 Laya Plata, VACUUM DRIER TENDER [address] [place] [address] PCP - ACO Reach01/04/24 Laya Plata, VACUUM DRIER TENDER [address] [place] [address] Nurse PractitionerMercy[facility]ly Medicine10/14/22Team MemberRelationshipSpecialtyStart DateEnd Date Daniel Pop, [address] [place] [address] PCP - GeneralFamily Medicine10/14/22 Laya Plata, VACUUM DRIER TENDER [address] [place] [address] PCP - ACO Reach01/04/24 Laya Plata, VACUUM DRIER TENDER [address] [place] [address] Nurse PractitionerFamily Medicine10/14/22Team MemberRelationshipSpecialtyStart DateEnd Date Daniel Pop, [address] [place] [address] PCP - GeneralFamily Medicine10/14/22 Laya Plata, VACUUM DRIER TENDER [address] [place] [address] PCP - ACO Reach01/04/24 Laya Plata L, VACUUM DRIER TENDER [address] [place] [address] Nurse PractitionerMercyone [facility] Centerly Medicine10/14/22Team MemberRelationshipSpecialtyStart DateEnd Date Daniel Pop, DO [address] [place] [address] PCP - GeneralMercyone [facility] Centerly Medicine10/14/22 Laya Plata L, VACUUM DRIER TENDER [address] [place] [address] PCP - ACO Reach01/04/24 Laya Plata, VACUUM DRIER TENDER [address] [place] [address] Nurse PractitionerWell[facility]10/14/22Te MemberRelationshipSpecialtyStart DateEnd Date Daniel Pop, DO [address] [place] [address] PCP - GeneralH[facility] Medicine10/14/22 Laya Plata, VACUUM DRIER TENDER [address] [place] [address] PCP - ACO Reach01/04/24 Laya Plata L, VACUUM DRIER TENDER [address] [place] [address] Nurse PractitionerHospital [facility] Behavior[facility] Medicine Medicine10/14/22Te MemberRelationshipSpecialtyStart DateEnd Date Daniel Pop, DO [address] [place] [address] PCP - GeneralMercyone [facility] Centerly Medicine10/14/22 Laya Plata L, VACUUM DRIER TENDER [address] [place] [address] PCP - ACO Reach01/04/24 Laya Plata L, VACUUM DRIER TENDER [address] [place] [address] Nurse PractitionerWell[facility]10/14/22Team MemberRelationshipSpecialtyStart DateEnd Date Daniel Pop, DO [address] [place] [address] PCP - [facility]10/14/22 Laya Plata, VACUUM DRIER TENDER [address] [place] [address] PCP - [facility] Reach01/04/24 Laya Plata, VACUUM DRIER TENDER [address] [place] [address] Nurse PractitionerWell[facility]10/14/22Te MemberRelationshipSpecialtyStart DateEnd Date Daniel Pop, DO [address] [place] [address] PCP - [facility]10/14/22 Laya Plata L, VACUUM DRIER TENDER [address] [place] [address] PCP - ACO [facility]01/04/24 Laya Plata L, VACUUM DRIER TENDER [address] [place] [address] Nurse PractitionerWell[facility]10/14/22Team MemberRelationshipSpecialtyStart DateEnd Date Daniel Pop, [address] [place] [address] PCP - GeneralH[facility] Medicine10/14/22 Laya Plata, VACUUM DRIER TENDER [address] [place] [address] PCP - ACO Reach01/04/24 Laya Plata, VACUUM DRIER TENDER [address] [place] [address] Nurse PractitionerWell[facility]10/14/22Te MemberRelationshipSpecialtyStart DateEnd Date Daniel Pop, [address] [place] [address] PCP - [facility] Medicine10/14/22 Laya Plata, VACUUM DRIER TENDER [address] [place] [address] PCP - O Reach01/04/24 Laya Plata, VACUUM DRIER TENDER [address] [place] [address] Nurse PractitionerWell[facility]10/14/22Te MemberRelationshipSpecialtyStart DateEnd Date Daniel Pop, DO [address] [place] [address] PCP - GeneralH[facility] Medicine10/14/22 Laya Plata, VACUUM DRIER TENDER [address] [place] [address] PCP - ACO Reach01/04/24 Laya Plata, VACUUM DRIER TENDER [address] [place] [address] Nurse PractitionerWell[facility]10/14/22Te MemberRelationshipSpecialtyStart DateEnd Date Daniel Pop, [address] [place] [id number] PCP - [facility]10/14/22 Laya Plata, VACUUM DRIER TENDER [address] [place] [id number] [facility] Reach01/04/24 Laya Plata, VACUUM DRIER TENDER [address] [place] [address] Nurse PractitionerWell[facility]10/14/22Te MemberRelationshipSpecialtyStart DateEnd Date Daniel Pop, [address] [place] [address] PCP [facility]10/14/22 Laya Plata, VACUUM DRIER TENDER [address] [place] [id number] [facility]01/04/24 Laya Plata, VACUUM DRIER TENDER [address] [place] [id number] Nurse PractitionerHospital For Behavioral Medicine Medicine10/14/22 (unrecognized sect ion and content) No Status Records FoundNo Status Records FoundNo Status Records FoundNo Status Records Found INFORMATION SOURCE (unrecogn ized section and content) DATE CREATED AUTHOR 04/29/2022 [facility] DATE CREATED AUTHOR AUTHOR'S ORGANIZ ATION 06/19/2023 [facility] DATE CREATED AUTHOR AUTHOR'S ORGANIZ ATION 01/08/2025 [facility] DATE CREATED AUTHOR AUTHOR'S ITZ ATION 01/27/2025 [facility] FOR RECORDS PERTAINING TO PATIENTS WHO [...] BE BASED ON THE PRIMARY CLINICAL RECORDS. [email or web address] provides no warranty or guarantee of the accuracy or completeness of information in this document.
--- NOTE | 2025-04-02 11:46 | PM.CN ---
Consult Note: HPI Data of Consult Patient: known to practice within the last 3 years Consult date: 04/02/25 Requesting Physician: Ponce Fuentes MD Primary Care Provider: Laya Thompson RN, ANALOG DESIGN ENGINEER Consult Narrative Reason for consult: left buttock pain Narrative: 79yom who presents for assessment. endorses worsening left buttock pain that is worsened with transitioning, sitting, stairs. similar to pain he had prior to sij injection completed >2 years ago, which provided significant relief of >50% for >3 months. imaging shows multilevel degenerative changes in lower lumbar spine. continues to engage in a series of provider directed home exercises >6 weeks, without lasting benefit. uses t#3 prn. cc:: CC: Ponce Fuentes MD Review of Systems ROS Status of ROS 10 or more systems reviewed and unremarkable except as noted in history and below PFSH PFS Medical History Osteoarthritis ?M19.90 - Unspecified osteoarthritis, unspecified site (ICD-10) Low back pain ?M54.50 - Low back pain, unspecified (ICD-10) Hearing deficit ?H91.90 - Unspecified hearing loss, unspecified ear (ICD-10) High cholesterol ?E78.00 - Pure hypercholesterolemia, unspecified (ICD-10) Hypertension ?I10 - Essential (primary) hypertension (ICD-10) Diabetes 1.5, managed as type 2 ?E13.9 - Other specified diabetes mellitus without complications (ICD-10) Sleep apnea ?G47.30 - Sleep apnea, unspecified (ICD-10) Surgical History History of uvulopalatopharyngoplasty ?Z98.890 - Other specified postprocedural states (ICD-10) H/O arthroscopic knee surgery ?Z98.890 - Other specified postprocedural states (ICD-10) H/O nasal septoplasty ?Z98.890 - Other specified postprocedural states (ICD-10) Meds Home Medications and Allergies Home Medications ?Medication ?Instructions ?Recorded ?Confirmed ?Type acetaminophen 650 mg 650 mg PO Q12H PRN fever or pain 01/27/23 02/05/25 History tablet,extended release (8 Hour Pain Reliever) apple cider vinegar 600 mg capsule 600 mg PO TID 01/27/23 02/05/25 History aspirin 81 mg tablet,delayed 81 mg PO DAILY 01/27/23 02/05/25 History release (Adult Aspirin Regimen) atenolol 50 mg tablet 50 mg PO DAILY 01/27/23 02/05/25 History cholecalciferol (vitamin D3) 50 50 mcg PO DAILY 01/27/23 02/05/25 History mcg (2,000 unit) tablet (Vitamin D3) famotidine 20 mg tablet 20 mg PO BID 01/27/23 02/05/25 History fluticasone propionate 50 1 spray intranasal BID PRN allergy 01/27/23 02/05/25 History mcg/actuation nasal symptoms spray,suspension (24 Hour Allergy Relief) hydrochlorothiazide 25 mg tablet 25 mg PO DAILY 01/27/23 02/05/25 History insulin degludec 100 unit/mL (3 34 unit subcut DAILY 01/27/23 02/05/25 History mL) subcutaneous pen (Tresiba FlexTouch U-100 insulin) lisinopril 20 mg tablet 20 mg PO BID 01/27/23 02/05/25 History loratadine 10 mg capsule 10 mg PO DAILY 01/27/23 02/05/25 History melatonin 10 mg capsule 10 mg PO DAILY 01/27/23 02/05/25 History multivitamin (Daily Multi-Vitamin 1 tab PO DAILY 01/27/23 02/05/25 History tablet) omeprazole 20 mg capsule,delayed 20 mg PO DAILY 01/27/23 02/05/25 History release zinc 25 mg tablet 25 mg PO DAILY 01/27/23 02/05/25 History ascorbic acid (vitamin C) 500 mg mg PO 03/01/24 History capsule bexagliflozin 20 mg tablet 20 mg PO DAILY 03/01/24 02/05/25 History ([place]) diphenhydramine 25 1 tab PO QPM PRN pain 03/01/24 02/05/25 History mg-acetaminophen 500 mg tablet (Tylenol PM Extra Strength) sitagliptin phosphate 100 mg 100 mg PO DAILY 03/01/24 02/05/25 History tablet (Januvia) acetaminophen 300 mg-codeine 30 mg 1 tab PO BID PRN pain #60 tabs 01/11/25 02/05/25 Rx tablet atorvastatin 40 mg tablet mg 01/22/25 History glucosamine-chondroitin 250 mg-200 2 tab PO BID 01/22/25 02/05/25 History mg tablet diazepam 10 mg tablet (Valium) 10 mg PO ONCE PRN anxiety 02/05/25 02/05/25 History acetaminophen 300 mg-codeine 30 mg 1 tab PO BID PRN pain #60 tabs 04/02/25 Rx tablet Allergies Allergy/AdvReac Type Severity Reaction Status Date / Time No Known Drug Allergies Allergy Verified 02/05/25 10:36 Exam Narrative Exam Narrative: Psych-alert and oriented x 3. Attentive and appropriate, constitutionally normal, displays normal mood and affect per situation.? There are no obvious deficits in memory, reasoning, or intellect.? Skin-no obvious rashes, bruising, erythema noted to the patient's area of pain. Extremities- extremities are warm with minimal edema and palpable pulses. Lumbar-no significant tenderness to palpation noted in the lumbar spine and paraspinal musculature.? Pain is elicited with extension, and lateral rotation of the lumbar spine. Range of motion is slightly diminished with these motions due to pain. Sacroiliac - tender to palpation over left PSIS. Positive Charli's on the left. Positive thigh thrust on the left. Coordination remains intact.? Gait remains non-antalgic. Assessment and Plan Assessment and Plan (1) Chronic left sacroiliac pain: Plan 79yom who presents for assessment. failed conservative measures, as noted. imaging reviewed, as noted. given symptoms and imaging, coupled with previous relief, it is prudent to attempt left sij injection under fluoroscopic guidance. he is in agreement. meds reviewed, no changes. refilled t#3. follow up after procedure.
== END 2025-04-02 11:08 | disposition home or self-care (01) ==
LOC: PM 11:07
PROVIDERS: PCP Nurse Practitioner; Visit Provider Anesthesiology
DX: M53.3 Sacrococcygeal disorders, not elsewhere classified (principal); G89.29 Other chronic pain
CPT/HCPCS: G0463